=== PATIENT | male | born 1960 | race Caucasian/White ===

== ENCOUNTER → 2017-04-06 | Outpatient (CLI) | payer OTHER ==
[~2017-04-06] MED LIST: ASP325T PO; ENLP10T GT; PANT40TA PO; SCR1T1 PO
== END ==
LOC: RAD 14:58
PROVIDERS: ATTEND Nurse Practitioner Adult Health
DX: I73.9 Peripheral vascular disease, unspecified (principal)

== ENCOUNTER → 2017-05-03 | Outpatient (CLI) | payer OTHER | LOC: RAD 12:05 | PROVIDERS: ATTEND Nurse Practitioner Family | DX: I73.9 Peripheral vascular disease, unspecified (principal); I70.213 Atherosclerosis of native arteries of extremities with intermittent claudication, bilateral legs | CPT/HCPCS: 93923 ==

== ENCOUNTER 2017-11-27 15:54 | Emergency (ER) | payer MEDICARE, OTHER ==
[~2017-11-27] VITALS: Ht 175.3 cm; Wt 113.4 kg
[2017-11-27 16:43] LABS: BASOPHILS % (AUTO) 0 % (0-10); EOSINOPHILS # (AUTO) 0.1 10^3/uL (0.0-0.3); EOSINOPHILS % (AUTO) 1 % (0-10); HEMATOCRIT 42 % (40-54); HEMOGLOBIN 14.3 G/DL (13.3-17.7); LYMPHOCYTES # (AUTO) 2.2 X 10^3 (1.0-4.0); LYMPHOCYTES % (AUTO) 27 % (12-44); MEAN CORPUSCULAR HEMOGLOBIN 32 PG (25-34); MEAN CORPUSCULAR HGB CONC 34 G/DL (32-36); MEAN CORPUSCULAR VOLUME 93 FL (80-99); MEAN PLATELET VOLUME 10.5 FL (7.4-10.4); MONOCYTES # (AUTO) 0.8 X 10^3 (0.0-1.0); MONOCYTES % (AUTO) 9 % (0-12); NEUTROPHILS # (AUTO) 5.1 X 10^3 (1.8-7.8); NEUTROPHILS % (AUTO) 63 % (42-75); PLATELET COUNT 245 10^3/uL (130-400); RED BLOOD COUNT 4.53 10^6/uL (4.35-5.85); RED CELL DISTRIBUTION WIDTH 13.2 % (10.0-14.5); WHITE BLOOD COUNT 8.2 10^3/uL (4.3-11.0)
[2017-11-27 16:56] LABS: ALANINE AMINOTRANSFERASE 35 U/L (0-55); ALBUMIN 4.2 GM/DL (3.2-4.5); ALKALINE PHOSPHATASE 76 U/L (40-136); BILIRUBIN,TOTAL 0.5 MG/DL (0.1-1.0); BUN/CREATININE RATIO 19; CALCIUM 9.8 MG/DL (8.5-10.1); CARBON DIOXIDE 23 MMOL/L (21-32); CHLORIDE 106 MMOL/L (98-107); CREATININE SERUM 0.99 MG/DL (0.60-1.30); GFR ESTIMATED > 60; GLUCOSE 119 MG/DL (70-105); POTASSIUM 4.1 MMOL/L (3.6-5.0); SODIUM 138 MMOL/L (135-145); TOTAL PROTEIN 7.4 GM/DL (6.4-8.2)
--- NOTE | 2017-11-27 16:59 | ED Cardiac General ---
History of Present Illness General Chief Complaint: Chest Pain Stated Complaint: SINUS DRAINAGE,COUGH,CONGESTION Nursing Triage Note: PT STATES CHEST TIGHTNESS SINCE THIS A.M. COUGH FOR ABOUT A WEEK. Source: patient Exam Limitations: no limitations History of Present Illness Date Seen by Provider: Nov 27, 2017 Time Seen by Provider: 16:54 Initial Comments The patient reports that he has had a cough and sinus congestion for about one week. This has continued and his chest is begun to feel tight. He is not aware of fever or sweats. He then reveals that he has had surgery on his carotids for blockage and stents put in one leg for blockage. He has not known to be diabetic. He is hypertensive and reports he takes his medicines. Timing/Duration: 1 week Location: other (band like) Activities at Onset: none Prior CP/Workup: no prior chest pain Allergies and Home Medications Allergies Coded Allergies: niacin (Unverified Allergy, 03/16/13) Home Medications Aspirin 325 Mg Tab, 325 MG PO DAILY, (Reported) Enalapril Maleate 10 Mg Tab, 10 MG GT DAILY, (Reported) Pantoprazole Sodium 40 Mg Tablet.dr, 40 MG PO DAILY, (Reported) Sucralfate 1 Gm Tab, 1 GM PO ACHS PRN, (Reported) Patient Home Medication List Home Medication List Reviewed: Yes Review of Systems Constitutional: see HPI EENTM: No Symptoms Reported Respiratory: SOA With Exertion Cardiovascular: No Symptoms Reported, See HPI Gastrointestinal: No Symptoms Reported Genitourinary: No Symptoms Reported Musculoskeletal: no symptoms reported Skin: no symptoms reported Psychiatric/Neurological: No Symptoms Reported Endocrine: No Symptoms Reported Hematologic/Lymphatic: No Symptoms Reported Past Zxbfgyx-Drxeqh-Ibrdpo Hx Patient Social History Alcohol Use: Denies Use Recreational Drug Use: No Smoking Status: Never a Smoker Recent Foreign Travel: No Contact w/Someone Who Travel: No Recent Infectious Disease Expo: No Recent Hopitalizations: No Surgeries History of Surgeries: Yes (STENTS IN RT LEG, BI LAT HANDS, RT KNEE) Surgeries: Eye Surgery, Orthopedic Respiratory History of Respiratory Disorde: No Cardiovascular History of Cardiac Disorders: Yes Cardiac Disorders: Hypertension Neurological History of Neurological Disord: No Genitourinary History of Genitourinary Disor: No Gastrointestinal History of Gastrointestinal Di: No Musculoskeletal History of Musculoskeletal Dis: No Endocrine History of Endocrine Disorders: No Cancer History of Cancer: No Integumentary History of Skin or Integumenta: No Physical Exam Vital Signs Vital Signs - First Documented 11/27/17 16:26 Temp 97.0 Pulse 108 Resp 20 B/P (MAP) 143/91 (108) Pulse Ox 96 O2 Delivery Room Air Capillary Refill : Less Than 3 Seconds General Appearance: No Apparent Distress, WD/WN HEENT: Normal ENT Inspection Neck: Normal Inspection Respiratory: Chest Non Tender, Lungs Clear, Normal Breath Sounds, No Accessory Muscle Use, No Respiratory Distress Cardiovascular: Regular Rate, Rhythm, No Edema, No Gallop, No JVD, No Murmur, Normal Peripheral Pulses Gastrointestinal: Normal Bowel Sounds, No Organomegaly, No Pulsatile Mass, Non Tender, Other (obese) Extremity: Normal Capillary Refill, Normal Inspection, Normal Range of Motion, Non Tender, No Calf Tenderness, No Pedal Edema Neurologic/Psychiatric: Alert, Oriented x3, No Motor/Sensory Deficits, Normal Mood/Affect Skin: Normal Color, Warm/Dry Lymphatic: No Adenopathy Progress/Results/Core Measures Results/Orders Lab Results Laboratory Tests Test 11/27/17 16:20 Range/Units White Blood Count 8.2 4.3-11.0 10^3/uL Red Blood Count 4.53 4.35-5.85 10^6/uL Hemoglobin 14.3 13.3-17.7 G/DL Hematocrit 42 40-54 % Mean Corpuscular Volume 93 80-99 FL Mean Corpuscular Hemoglobin 32 25-34 PG Mean Corpuscular Hemoglobin Concent 34 32-36 G/DL Red Cell Distribution Width 13.2 10.0-14.5 % Platelet Count 245 130-400 10^3/uL Mean Platelet Volume 10.5 H 7.4-10.4 FL Neutrophils (%) (Auto) 63 42-75 % Lymphocytes (%) (Auto) 27 12-44 % Monocytes (%) (Auto) 9 0-12 % Eosinophils (%) (Auto) 1 0-10 % Basophils (%) (Auto) 0 0-10 % Neutrophils # (Auto) 5.1 1.8-7.8 X 10^3 Lymphocytes # (Auto) 2.2 1.0-4.0 X 10^3 Monocytes # (Auto) 0.8 0.0-1.0 X 10^3 Eosinophils # (Auto) 0.1 0.0-0.3 10^3/uL Basophils # (Auto) 0.0 0.0-0.1 10^3/uL Sodium Level 138 135-145 MMOL/L Potassium Level 4.1 3.6-5.0 MMOL/L Chloride Level 106 98-107 MMOL/L Carbon Dioxide Level 23 21-32 MMOL/L Anion Gap 9 5-14 MMOL/L Blood Urea Nitrogen 19 H 7-18 MG/DL Creatinine 0.99 0.60-1.30 MG/DL Estimat Glomerular Filtration Rate > 60 BUN/Creatinine Ratio 19 Glucose Level 119 H 70-105 MG/DL Calcium Level 9.8 8.5-10.1 MG/DL Total Bilirubin 0.5 0.1-1.0 MG/DL Aspartate Amino Transf (AST/SGOT) 26 5-34 U/L Alanine Aminotransferase (ALT/SGPT) 35 0-55 U/L Alkaline Phosphatase 76 40-136 U/L Troponin I < 0.30 <0.30 NG/ML Total Protein 7.4 6.4-8.2 GM/DL Albumin 4.2 3.2-4.5 GM/DL My Orders Orders - CARLOS TINOCO MD Cbc With Automated Diff (11/27/17 16:28) Comprehensive Metabolic Panel (11/27/17 16:28) Ekg Tracing (11/27/17 16:28) Chest 1 View, Ap/Pa Only (11/27/17 16:28) Troponin I (11/27/17 16:28) Vital Signs/I&O Vital Sign - Last 12Hours 11/27/17 11/27/17 16:26 16:53 Temp 97.0 Pulse 108 Resp 20 B/P (MAP) 143/91 (108) Pulse Ox 96 O2 Delivery Room Air Room Air Blood Pressure Mean: 108 Departure Communication (Admissions) Progress Notes EKG and laboratory are normal. [address] landaverde and she would wish that he be discharged for follow-up at [facility]. Impression Impression: Primary Impression: URI Disposition: 01 HOME, SELF-CARE Condition: Stable/Unchanged Departure-Patient Inst. Decision time for Depature: 18:02 Referrals: SINDY LANDAVERDE DO (PCP) Primary Care Physician Add. Discharge Instructions: All discharge instructions reviewed with patient and/or family. Voiced understanding. Plenty of liquids Claritin or other psgm-tlh-qgbfdwz antihistamines for sinus congestion. If chest discomfort becomes more acute and especially if you develop sweats return to the emergency room. Make appointment to see Dr. nathanael vega this week. CARLOS TINOCO MD Nov 27, 2017 16:59
--- NOTE | 2017-11-27 17:08 | Diagnostic Imaging Report ---
EXAM: CHEST 1 VIEW, AP/PA ONLY INDICATION: Chest tightness. Cough. COMPARISON: None. FINDINGS: Normal heart size and pulmonary vascularity. Calcified granulomas in the right lung. No focal consolidation, pleural effusion or pneumothorax. No acute osseous findings. Postoperative changes in the cervical spine. IMPRESSION: No acute cardiopulmonary findings. Dictated by: Dictated on workstation # [id number]
[2017-11-27 19:36] VITALS: BP 112/73
--- OUTSIDE RECORDS SUMMARY | 2017-11-28 09:50 | XMS REPORT ---
Author Author JUVE GASTELUM Organization [facility] Address [address] [place] [address] Care Team Providers Care Coordinator Of Library Services Name Role Phone TAWNYA GASTELUMNETTE Unavailable PROBLEMS Type Condition ICD9-CM Code [id number] Code Onset Dates Condition Status SNOMED Code Problem Rheumatoid arthritis, involving unspecified site, unspecified rheumatoid factor presence M06.9 Active 92445891 Problem PVD (peripheral vascular disease) I73.9 Active 053759456 Problem Essential hypertension I10 Active 19311491 Problem Hyperlipidemia, unspecified hyperlipidemia type E78.5 Active 71814474 Problem Right leg claudication I73.9 Active 431070640 Problem Dupuytren's contracture of hand M72.0 Active 000685386 Problem Primary osteoarthritis, unspecified site M19.91 Active 928963368 Problem Moderate single current episode of major depressive disorder F32.1 Active 24154838 Problem Pure hypercholesterolemia E78.00 Active 773255617 ALLERGIES Substance Reaction Event Type Date Status Niacin Unknown Drug Allergy Nov, Active SOCIAL HISTORY Never Assessed PLAN OF CARE VITAL SIGNS MEDICATIONS Medication Instructions Dosage Frequency Start Date End Date Duration Status Plavix 75 MG Orally Once a day 1 tablet 24h Active Lisinopril-Hydrochlorothiazide 20-12.5 MG Orally Once a day 1 tablet 24h Active Cyclobenzaprine HCl 10 MG Orally Three times a day 1 tablet as needed 8h Active Lipitor 20mg Orally Once a day 1 tablet 24h Active RESULTS No Results PROCEDURES No Known procedures IMMUNIZATIONS No Known Immunizations MEDICAL (GENERAL) HISTORY Type Description Date Medical History dupuytren's contracture-hand bilateral Medical History hypertension Medical History hyperlipidemia Medical History Arthritis Medical History peripheral vascular disease Medical History rheumatoid arthritis Surgical History cervical fusion C3-C7 -[facility] 05/2015 Surgical History dupuytren's contracture-bilateral hands Surgical History Artery bypass in right leg Surgical History Occipital bone surgery right side Hospitalization History Surgery(s) only
--- OUTSIDE RECORDS SUMMARY | 2017-11-28 09:50 | XMS REPORT ---
Author Author JUVE GASTELUM Organization [facility] Address [address] [place] [address] Care Team Providers Care Vrt Mechanic Name Role Phone GASTELUM, JUVE Unavailable PROBLEMS Type Condition ICD9-CM Code OEL43-LO Code Onset Dates Condition Status SNOMED Code Problem Rheumatoid arthritis, involving unspecified site, unspecified rheumatoid factor presence M06.9 Active 92390156 Problem PVD (peripheral vascular disease) I73.9 Active 755523855 Problem Essential hypertension I10 Active 11115228 Problem Hyperlipidemia, unspecified hyperlipidemia type E78.5 Active 24697819 Problem Right leg claudication I73.9 Active 160136172 Problem Dupuytren's contracture of hand M72.0 Active 355557641 Problem Primary osteoarthritis, unspecified site M19.91 Active 315665582 Problem Moderate single current episode of major depressive disorder F32.1 Active 08863692 Problem Pure hypercholesterolemia E78.00 Active 854729531 ALLERGIES Substance Reaction Event Type Date Status Niacin Unknown Drug Allergy Nov, Active SOCIAL HISTORY Never Assessed PLAN OF CARE Activity Details Follow Up 3 Months Reason:depresion, pain and schedule for ameritox VITAL SIGNS Height 69 in 2016-12-10 Weight 258.7 lbs 2016-12-10 Temperature 97.6 degrees Fahrenheit 2016-12-10 Heart Rate 88 bpm 2016-12-10 Respiratory Rate 18 2016-12-10 BMI 38.20 kg/m2 2016-12-10 Blood pressure systolic 152 mmHg 2016-12-10 Blood pressure diastolic 78 mmHg 2016-12-10 MEDICATIONS Medication Instructions Dosage Frequency Start Date End Date Duration Status Lipitor 20 mg Orally Once a day 1 tablet 24h Active Cyclobenzaprine HCl 10 MG Orally Three times a day 1 tablet as needed 8h Active Tramadol HCl 50 mg Orally 3 times a day 1 tablet as needed 8h Active Plavix 75 MG Orally Once a day 1 tablet 24h Active Lisinopril-Hydrochlorothiazide 20-12.5 MG Orally Once a day 1 tablet 24h Active Cane - Active RESULTS Name Result Date Reference Range URIC ACID, SERUM 2016-12-10 Uric Acid, Serum 6.6 3.7-8.6 TSH 2016-12-10 TSH 1.430 0.450-4.500 CBC 2016-12-10 WBC 7.0 3.4-10.8 RBC 4.60 4.14-5.80 Hemoglobin 14.3 12.6-17.7 Hematocrit 42.6 37.5-51.0 MCV 93 79-97 MCH 31.1 26.6-33.0 MCHC 33.6 31.5-35.7 RDW 13.9 12.3-15.4 Platelets 240 150-379 Neutrophils 56 Lymphs 33 Monocytes 7 Eos 3 Basos 0 Neutrophils (Absolute) 3.9 1.4-7.0 Lymphs (Absolute) 2.4 0.7-3.1 Monocytes(Absolute) 0.5 0.1-0.9 Eos (Absolute) 0.2 0.0-0.4 Baso (Absolute) 0.0 0.0-0.2 Immature Granulocytes 1 Immature Grans (Abs) 0.1 0.0-0.1 Hematology Comments: Note: ESR/SED RATE 2016-12-10 [facility]30 RA (RHEUMATOID) FACTOR 2016-12-10 RA Latex Turbid. <10.0 0.0-13.9 AGAPITO 2016-12-10 Antinuclear Antibodies, IFA Negative LIPID PANEL 2016-12-10 Cholesterol, Total 225 100-199 Triglycerides 378 0-149 HDL Cholesterol 36 >39 VLDL Cholesterol Brett 76 5-40 LDL Cholesterol Calc 113 0-99 CMP 2016-12-10 Glucose, Serum 94 65-99 BUN 17 6-24 Creatinine, Serum 0.96 0.76-1.27 eGFR If NonAfricn Am 87 >59 eGFR If Africn Am 100 >59 BUN/Creatinine Ratio 18 9-20 Sodium, Serum 140 134-144 Potassium, Serum 4.7 3.5-5.2 Chloride, Serum 102 96-106 Carbon Dioxide, Total 21 18-29 Calcium, Serum 9.1 8.7-10.2 Protein, Total, Serum 6.9 6.0-8.5 Albumin, Serum 4.2 3.5-5.5 Globulin, Total 2.7 1.5-4.5 A/G Ratio 1.6 1.2-2.2 Bilirubin, Total 0.4 0.0-1.2 Alkaline Phosphatase, S 84 39-117 AST (SGOT) 26 0-40 ALT (SGPT) 36 0-44 PROCEDURES Procedure Date Ordered Result Body Site COMPLETE CBC W/AUTO DIFF WBC December 10, 2016 RBC SED RATE, AUTOMATED December 10, 2016 ASSAY OF BLOOD/URIC ACID December 10, 2016 VENIPUNCT, ROUTINE* December 10, 2016 ASSAY THYROID STIM HORMONE December 10, 2016 LIPID PANEL December 10, 2016 ANTINUCLEAR ANTIBODIES December 10, 2016 RHEUMATOID FACTOR, QUANT December 10, 2016 IMMUNIZATIONS No Known Immunizations MEDICAL (GENERAL) HISTORY Type Description Date Medical History dupuytren's contracture-hand bilateral Medical History hypertension Medical History hyperlipidemia Medical History Arthritis Medical History peripheral vascular disease Medical History rheumatoid arthritis Surgical History cervical fusion C3-C7 -[facility] 05/2015 Surgical History dupuytren's contracture-bilateral hands Surgical History Artery bypass in right leg Surgical History Occipital bone surgery right side Hospitalization History Surgery(s) only
--- OUTSIDE RECORDS SUMMARY | 2017-11-28 09:50 | XMS REPORT | Continuity of Care Document ---
Author Author [facility] Organization [facility] Address Unknown Phone Unavailable Allergies Active Description Code Type Severity Reaction Onset Reported/Identified Relationship to Patient Clinical Status Yes niacin [id number] Drug Allergy Unknown N/A 03/16/2013 Medications There is no data. Problems Date Dx Coded Attending Type Code Diagnosis Diagnosed By 03/16/2013 NOREEN COLLADO MD Ot 455.0 INT HEMORRHOID W/O COMPL 03/16/2013 NOREEN COLLADO MD Ot 455.3 EXT HEMORRHOID W/O COMPL 03/16/2013 NOREEN COLLADO MD Ot 530.11 REFLUX ESOPHAGITIS 03/16/2013 NOREEN COLLADO MD Ot 535.40 OTH SPECIFIED GASTRITIS,W/O MENTION OF H 03/16/2013 NOREEN COLLADO MD Ot V76.51 SCREEN MAL NEOP-COLON 03/29/2017 NOREEN COLLADO MD Ot V72.84 EXAM PRE-OPERATIVE NOS 04/07/2017 NOREEN COLLADO MD Ot V72.84 EXAM PRE-OPERATIVE NOS 04/13/2017 NOREEN COLLADO MD Ot V72.84 EXAM PRE-OPERATIVE NOS 04/13/2017 JUVE GASTELUMP Ot I73.9 PERIPHERAL VASCULAR DISEASE, UNSPECIFIED 05/04/2017 DERIK BARRY Ot I70.213 ATHSCL [place] ARTERIES OF EXTRM W INTRMT 05/04/2017 DERIK BARRY Ot I73.9 PERIPHERAL VASCULAR DISEASE, UNSPECIFIED Procedures There is no data. Results There is no data. Encounters ACCT No. Visit Date/Time Discharge Status Pt. Type Provider Facility Loc./Unit Complaint [id number] 07/28/2017 13:04:00 07/28/2017 23:59:59 CLS Outpatient SINDY LANDAVERDE DO [facility] RAD LOW BACK PAIN [id number] 05/03/2017 12:05:00 05/03/2017 23:59:59 CLS Outpatient DERIK BARRY [employer] ASSOCIATE [facility] RAD I73.9 [id number] 04/06/2017 14:58:00 04/06/2017 23:59:59 CLS Outpatient JUVE GASTELUM [facility] RAD PVD I73.9 [id number] 03/16/2013 09:40:00 03/16/2013 12:50:00 DIS Outpatient NOREEN COLLADO MD [facility] GERD; SCREENING [id number] 03/15/2013 08:06:00 03/15/2013 23:59:59 CLS Outpatient NOREEN COLLADO MD [facility] PREOP GERD; SCREENING
== END 2017-11-27 19:36 | disposition home or self-care (01) ==
LOC: EDUNIT# 15:54 → ER 15:56
DX: J06.9 Acute upper respiratory infection, unspecified (principal); I10 Essential (primary) hypertension; Z95.820 Peripheral vascular angioplasty status with implants and grafts; Z98.890 Other specified postprocedural states; Z88.3 Allergy status to other anti-infective agents
CPT/HCPCS: 36415; 71045; 80053; 84484; 85025; 93005

== ENCOUNTER 2018-03-03 20:18 | Emergency (ER) | payer MEDICARE ==
[~2018-03-03] VITALS: Ht 175.3 cm; Wt 113.9 kg
--- OUTSIDE RECORDS SUMMARY | 2018-03-03 20:23 | XMS REPORT ---
Author Author JUVE Diaz Organization [facility] Address [address] [place] [address] Care Team Providers Care Wooden Boat Builder Name Role Phone JUVE Diaz Unavailable PROBLEMS Type Condition ICD9-CM Code HUA71-UN Code Onset Dates Condition Status SNOMED Code Problem Primary osteoarthritis, 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 Active 71887643 Problem Lumbago with sciatica, left side M54.42 Active 875728793 Problem Anxiety F41.9 Active 59703031 Problem Hypotestosteronism E34.9 Active 7693482868956 Problem Erectile dysfunction, unspecified erectile dysfunction type N52.9 Active 315885035 Problem Chronic prescription opiate use Z79.891 Active 144607292 Problem Lumbago with sciatica, right side M54.41 Active 783960282530381 Problem Tear of left rotator cuff, unspecified tear extent M75.102 Active 6321608 Problem Left shoulder pain, unspecified chronicity M25.512 Active 51992217 Problem Pure hypercholesterolemia E78.00 Active 354115377 Problem Primary osteoarthritis, unspecified site M19.91 Active 155666510 Problem Dupuytren's contracture of hand M72.0 Active 778257671 Problem PVD (peripheral vascular disease) I73.9 Active 207158527 Problem Moderate single current episode of major depressive disorder F32.1 Active 10333803 Problem Rheumatoid arthritis, involving unspecified site, unspecified rheumatoid factor presence M06.9 Active 11237527 Problem Right leg claudication I73.9 Active 412553031 Problem Essential hypertension I10 Active 69637812 Problem Hyperlipidemia, unspecified hyperlipidemia type E78.5 Active 50771138 ALLERGIES No Information ENCOUNTERS Encounter Location Date Diagnosis [facility] [address] [id number] [place] [id number] Dec, [address] [id number] [place] [id number] Dec, Erectile dysfunction, unspecified erectile dysfunction type N52.9 [facility] [address] [id number] [id number] Dec, [facility] [address] [address] Dec, Pre-operative cardiovascular examination Z01.810 ; PVD (peripheral vascular disease) I73.9 ; Anxiety F41.9 ; Rheumatoid arthritis, involving unspecified site, unspecified rheumatoid factor presence M06.9 ; Essential hypertension I10 ; Hyperlipidemia, unspecified hyperlipidemia type E78.5 and Hypotestosteronism E34.[address] [facility] [address] [id number][place] [id number] Dec, [facility] [address] [id number][place] [id number] Dec, Erectile dysfunction, unspecified erectile dysfunction type N52.9 and Hypotestosteronism E34.9 [facility] [address] [id number][place] [address] Dec, Hypotestosteronism E34.9 [facility] [address] [id number][place] [id number] Nov, [facility] [address] [address] Nov, Hypotestosteronism E34.9 [facility] [place] [id number] [id number] Nov, Pure hypercholesterolemia E78.00 and Primary osteoarthritis, unspecified site M19.[address] [facility] [address] [id number][place] [id number] Nov, [facility] [address] [place] [address] Nov, Tear of left glenoid labrum, subsequent encounter S43.432D [facility] [address] [id number], [place] [id number] Nov, Hypotestosteronism E34.[address] [facility] [address] [id number] [place] [id number] 15 Nov, [address] [facility] [address] [id number] [place] [id number] 14 Nov, [address] [facility] [address] [id number] [place] [id number] Nov, Erectile dysfunction, unspecified erectile dysfunction type N52.[address] [facility] [address] [id number] [place] [address] Nov, Erectile dysfunction, unspecified erectile dysfunction type N52.9 [facility] [address] [id number][place] [id number] Nov, Viral upper respiratory tract infection J06.9 and Erectile dysfunction, unspecified erectile dysfunction type N52.9 [facility] [address] [id number][place] [id number] Oct, [facility] [address] [id number], [place] [id number] Oct, [facility] [address] [id number][place] [id number] Oct, Fall on same level due to nature of surface, initial encounter W18.39XA and Erectile dysfunction, unspecified erectile dysfunction type N52.9 [facility] [address]65100[place] [address] Sep, [facility] [id number] [place] [address] 09120- 1693 Sep, Tear of left rotator cuff, unspecified tear extent M75.102 and Primary osteoarthritis, 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 [facility] [id number] [place] [address] 06158- 8790 Aug, Primary osteoarthritis, unspecified site M19.91 [facility] [address] [place] [address] 95340- 8304 Jul, [facility] [id number] [place] [address] 23965- 6591 Jul, Primary osteoarthritis, unspecified site M19.91 [place] [id number] [place] [address] 35361- 8958 Jul, Lumbago with sciatica, right side M54.41 [place] [id number] [place] [address] 24385- 2032 Jul, Primary osteoarthritis, 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 and Injury of left rotator cuff, subsequent encounter S46.002D [place] [address] [address]07- [address] Jul, [place] [address] [address]75 Jul, [place] [id number] [place] [address] 70253- 4465 Jul, [place] [address] [place] [address] 93750- 3208 Jul, Lumbago with sciatica, left side M54.42 ; Lumbago with sciatica, right side M54.41 ; Left shoulder pain, unspecified chronicity M25.512 and Essential hypertension I10 [place] [address] [place] [address] 37650- 9047 Jun, Lumbago with sciatica, left side M54.42 ; Lumbago with sciatica, right side M54.41 ; Left shoulder pain, unspecified chronicity M25.512 ; Essential hypertension I10 ; Heart murmur previously undiagnosed R01.1 ; Overweight E66.3 ; Anxiety F41.9 and Chronic prescription opiate use Z79.891 [place] [address] [place] [address] 12729- 3215 Jun, Primary osteoarthritis, unspecified site M19.91 [place] [address] [place] [address] 41070- 5092 Jun, [place] [address] [place] [address] 83800- 7474 May, Primary osteoarthritis, unspecified site M19.91 [place] [address] [place] [address] 08577- 4070 May, Injury of left rotator cuff, subsequent encounter S46.002D [place] [address] [place] [address] 88833- 0384 May, [place] [id number] [place] [address] 05136- 0458 Apr, [place] [address] [place] [address] 20979- 2630 Apr, PVD (peripheral vascular disease) I73.9 ; Right leg claudication I73.9 ; Hyperlipidemia, unspecified hyperlipidemia type E78.5 ; Occlusion of femoropopliteal bypass graft, 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 and Essential hypertension I10 [place] [address] [place] [address] 01328- 9556 Apr, Left shoulder pain, unspecified chronicity M25.512 [place] [address] [place] [address] 33395- 5160 Mar, Left shoulder pain, unspecified chronicity M25.512 [place] [id number] [place] [address] 21647- 5211 Mar, [place] [id number] [place] [address] 91288- 5540 Mar, [place] [id number] [place] [address] 82534- 4285 Mar, Dupuytren's contracture of hand M72.0 ; Essential hypertension I10 ; Pure hypercholesterolemia E78.00 ; Primary osteoarthritis, unspecified site M19.91 ; PVD (peripheral vascular disease) I73.9 and Moderate single current episode of major depressive disorder F32.1 [facility] [id number] [place] [id number] 29 Mele, 2017 Dental examination Z01.20 and Dental caries K02.9 [place] [address] [address] Feb, Primary osteoarthritis, unspecified site M19.91 [place] [address]100[place] [address] Feb, [place] [address] [address] Feb, [place] [address] [address] Nov, [place] [address] [place] [address] 30394- 9888 Nov, Dupuytren's contracture of hand M72.0 ; Pure hypercholesterolemia E78.00 ; Essential hypertension I10 ; PVD (peripheral vascular disease) I73.9 ; Primary osteoarthritis, unspecified site M19.91 and Rheumatoid arthritis, involving unspecified site, unspecified rheumatoid factor presence M06.9 [place] [address] [address] Nov, IMMUNIZATIONS No Known Immunizations SOCIAL HISTORY Never Assessed REASON FOR VISIT Controlled Med Refill PLAN OF CARE VITAL SIGNS MEDICATIONS Unknown Medications RESULTS No Results PROCEDURES No Known procedures INSTRUCTIONS MEDICATIONS ADMINISTERED No Known Medications MEDICAL (GENERAL) HISTORY Type Description Date Medical History dupuytren's contracture-hand bilateral Medical History hypertension Medical History hyperlipidemia Medical History Arthritis Medical History peripheral vascular disease Medical History rheumatoid arthritis Surgical History cervical fusion C3-C7 [facility] 05/2015 Surgical History dupuytren's contracture-bilateral hands Surgical History Artery bypass in right leg Surgical History Occipital bone surgery right side Surgical History surgery near right eye Hospitalization History Surgery(s) only
--- OUTSIDE RECORDS SUMMARY | 2018-03-03 20:24 | XMS REPORT ---
Author Author DERIK BARRY [facility] Address [address] [place] [address] Care Team Providers Care Training And Development Assistant Name Role Phone DERIK BARRY Unavailable PROBLEMS Type Condition ICD9-CM Code KPF96-FP Code Onset Dates Condition Status SNOMED Code Problem Primary osteoarthritis, 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 Active 76145822 Problem Lumbago with sciatica, left side M54.42 Active 359086275 Problem Anxiety F41.9 Active 39377886 Problem Hypotestosteronism E34.9 Active 3043814529900 Problem Erectile dysfunction, unspecified erectile dysfunction type N52.9 Active 432607863 Problem Chronic prescription opiate use Z79.891 Active 773551137 Problem Lumbago with sciatica, right side M54.41 Active 067915353308798 Problem Tear of left rotator cuff, unspecified tear extent M75.102 Active 5940715 Problem Left shoulder pain, unspecified chronicity M25.512 Active 65730791 Problem Pure hypercholesterolemia E78.00 Active 566009461 Problem Primary osteoarthritis, unspecified site M19.91 Active 962424197 Problem Dupuytren's contracture of hand M72.0 Active 120202140 Problem PVD (peripheral vascular disease) I73.9 Active 231758864 Problem Moderate single current episode of major depressive disorder F32.1 Active 05267727 Problem Rheumatoid arthritis, involving unspecified site, unspecified rheumatoid factor presence M06.9 Active 44676102 Problem Right leg claudication I73.9 Active 109106594 Problem Essential hypertension I10 Active 24888929 Problem Hyperlipidemia, unspecified hyperlipidemia type E78.5 Active 71344648 ALLERGIES Substance Reaction Event Type Date Status Niacin Unknown Drug Allergy Apr, Active ENCOUNTERS Encounter Location Date Diagnosis [place] [id number] [facility] [address] [id number] [place] [id number] Dec, Erectile dysfunction, unspecified erectile dysfunction type N52.9 [facility] [id number][place] [id number] Dec, [facility] [place] [address] [id number] [address] Dec, Pre-operative cardiovascular examination Z01.810 ; PVD (peripheral vascular disease) I73.9 ; Anxiety F41.9 ; Rheumatoid arthritis, involving unspecified site, unspecified rheumatoid factor presence M06.9 ; Essential hypertension I10 ; Hyperlipidemia, unspecified hyperlipidemia type E78.5 and Hypotestosteronism E34.[address] [facility] [address] [id number] [place] [address] Dec, [facility] [address] [id number] [place] [address] Dec, Erectile dysfunction, unspecified erectile dysfunction type N52.9 and Hypotestosteronism E34.9 [facility] [address] [id number] [place] [id number] Dec, Hypotestosteronism E34.9 [facility] [place] [address] [id number][place] [address] Nov, [facility] [address] [place] [address] 75184- 3877 Nov, Hypotestosteronism E34.9 [facility] [place] [id number] [id number] Nov, Pure hypercholesterolemia E78.00 and Primary osteoarthritis, unspecified site M19.91 [facility] [address] [id number] [place] [address] Nov, [facility] [address] [id number], [place] [address] Nov, Tear of left glenoid labrum, subsequent encounter S43.432D [facility] [address] [id number] [place] [address] Nov, Hypotestosteronism E34.9 [facility] [address] [id number] [place] [id number] Nov, [facility] [address] [id number] [place] [id number] Nov, [facility] [address] [id number] [place] [id number] Nov, Erectile dysfunction, unspecified erectile dysfunction type N52.9 [facility] [address] [id number] [place] [id number] Nov, Erectile dysfunction, unspecified erectile dysfunction type N52.9 [facility] [address] [id number] [place] [id number] Nov, Viral upper respiratory tract infection J06.9 and Erectile dysfunction, unspecified erectile dysfunction type N52.9 [facility] [address] [id number] [place] [id number] Oct, [facility] [address] [id number] [place] [id number] Oct, [facility] [address] [id number] [place] [id number] Oct, Fall on same level due to nature of surface, initial encounter W18.39XA and Erectile dysfunction, unspecified erectile dysfunction type N52.9 [facility] [address] [place] [address] 65141- 2961 Sep, [facility] [id number] [place] [address] 30568- 6635 Sep, Tear of left rotator cuff, unspecified tear extent M75.102 and Primary osteoarthritis, 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 [facility] [place] [id number] [place] [address] 95084- 4690 Aug, Primary osteoarthritis, unspecified site M19.91 [facility] [place] [id number] [place] [address] 61528- 5788 Jul, [facility] [place] [id number] [place] [address] 71634- 9715 Jul, Primary osteoarthritis, unspecified site M19.91 [place] [address], [place] [address]- 6[address] Jul, Lumbago with sciatica, right side M54.41 [place] [id number] [place] [address] 40034- 3432 Jul, Primary osteoarthritis, 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 and Injury of left rotator cuff, subsequent encounter S46.002D [place] [address] [place] [address] 29608- 9984 Jul, [place] [address] [place] [address] 05553- 8785 Jul, [place] [address] [place] [address] 59903- 5265 Jul, [place] [address] [place] [address] 48268- 2541 Jul, Lumbago with sciatica, left side M54.42 ; Lumbago with sciatica, right side M54.41 ; Left shoulder pain, unspecified chronicity M25.512 and Essential hypertension I10 [place] [address] [place] [address] 08614- 5085 Jun, Lumbago with sciatica, left side M54.42 ; Lumbago with sciatica, right side M54.41 ; Left shoulder pain, unspecified chronicity M25.512 ; Essential hypertension I10 ; Heart murmur previously undiagnosed R01.1 ; Overweight E66.3 ; Anxiety F41.9 and Chronic prescription opiate use Z79.891 [place] [address] [place] [address] 34611- 0301 Jun, Primary osteoarthritis, unspecified site M19.91 [place] [address] [place] [address] 64138- 2258 Jun, [facility] [place] [id number] [place] [address] 40509- 3863 May, Primary osteoarthritis, unspecified site M19.91 [place] [address] [place] [address] 81043- 4315 May, Injury of left rotator cuff, subsequent encounter S46.002D [place] [address] [place] [address] 29885- 2522 May, [place] [address] [place] [address] 47534- 1629 Apr, [place] [address] [place] [address] 62517- 0345 Apr, PVD (peripheral vascular disease) I73.9 ; Right leg claudication I73.9 ; Hyperlipidemia, unspecified hyperlipidemia type E78.5 ; Occlusion of femoropopliteal bypass graft, 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 and Essential hypertension I10 [place] [address] [place] [address] 37891- 2102 Apr, Left shoulder pain, unspecified chronicity M25.512 [place] [address] [place] [address] 98552- 6427 Mar, Left shoulder pain, unspecified chronicity M25.512 [place] [address] [place] [address] 65665- 8395 Mar, [place] [address] [place] [address] 88628- 5486 Mar, [place] [address] [place] [address] 97227- 8594 Mar, Dupuytren's contracture of hand M72.0 ; Essential hypertension I10 ; Pure hypercholesterolemia E78.00 ; Primary osteoarthritis, unspecified site M19.91 ; PVD (peripheral vascular disease) I73.9 and Moderate single current episode of major depressive disorder F32.1 [facility] [address] [id number] Feb, Dental examination Z01.20 and Dental caries K02.9 [place] [address] [place] [address]- 8507 Feb, Primary osteoarthritis, unspecified site M19.91 [place] [address], [place] [address]- 6143 Feb, [place] [address], [place] [address]- 1856 Feb, [place] [id number] [place] [address] 22448- 1482 Nov, [place] [address] [place] [address] 85595- 3057 Nov, Dupuytren's contracture of hand M72.0 ; Pure hypercholesterolemia E78.00 ; Essential hypertension I10 ; PVD (peripheral vascular disease) I73.9 ; Primary osteoarthritis, unspecified site M19.91 and Rheumatoid arthritis, involving unspecified site, unspecified rheumatoid factor presence M06.9 [place] [address], [place] [address]- 7252 Nov, IMMUNIZATIONS No Known Immunizations SOCIAL HISTORY Never Assessed REASON FOR VISIT PVD/HTN PLAN OF CARE Activity Details Follow Up f/u at Dr Gasca office Reason: VITAL SIGNS Height 69 in 2017-04-27 Weight 243 lbs 2017-04-27 Heart Rate 90 bpm 2017-04-27 Respiratory Rate 18 2017-04-27 Oximetry 98 % 2017-04-27 BMI 35.88 kg/m2 2017-04-27 Blood pressure systolic 148 mmHg 2017-04-27 Blood pressure diastolic 86 mmHg 2017-04-27 MEDICATIONS Medication Instructions Dosage Frequency Start Date End Date Duration Status Duloxetine HCl 60 mg [place] Once a day 1 capsule 24h 21 Feb, 2017 90 days Active Lipitor 20 mg Orally Once a day 1 tablet 24h Active Lopid 600 MG Or[place] Twice a day 1 tablet 12h Nov, 30 day(s) Active Cyclobenzaprine HCl 10 mg Or[place] Three times a day 1 tablet as needed 8h Active Plavix 75 MG Orally Once a day 1 tablet 24h Active Hydrocodone-Acetaminophen 5-325 MG Orally 3 times a day 1 tablet as needed 8h Apr, 15 days Active Nabumetone 500 mg Orally Twice a day 1 tablet 12h Apr, Apr, 30 day(s) Active Aspirin Adult Low Dose 81 MG Orally Once a day 1 tablet 24h Active Tramadol HCl 50 mg Orally 3 times a day 1 tablet 8h 28 Active Lisinopril-Hydrochlorothiazide 20-12.5 MG Orally Once a day 1 tablet 24h 90 days Active RESULTS Name Result Date Reference Range STEVIE 2017-05-03 PROCEDURES Procedure Date Ordered Result Body Site EKG, TRACING (IN-HOUSE) 2017-04-27 N/A MEASURE BLOOD OXYGEN LEVEL Apr 27, 2017 ELECTROCARDIOGRAM, TRACING Apr 27, 2017 INSTRUCTIONS MEDICATIONS ADMINISTERED No Known Medications MEDICAL [...]
--- OUTSIDE RECORDS SUMMARY | 2018-03-03 20:24 | XMS REPORT ---
Author Author SINDY LANDAVERDE [facility] Address [address] [place] [address] Care Team Providers Care Barrel Marker Name Role Phone SINDY LANDAVERDE Unavailable PROBLEMS Type Condition ICD9-CM Code HAF40-RO Code Onset Dates Condition Status SNOMED Code Problem Primary osteoarthritis, 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 Active 62871027 Problem Lumbago with sciatica, left side M54.42 Active 188336705 Problem Anxiety F41.9 Active 06920696 Problem Hypotestosteronism E34.9 Active 3839019261919 Problem Erectile dysfunction, unspecified erectile dysfunction type N52.9 Active 696808668 Problem Chronic prescription opiate use Z79.891 Active 433986777 Problem Lumbago with sciatica, right side M54.41 Active 427592114747843 Problem Tear of left rotator cuff, unspecified tear extent M75.102 Active 7314042 Problem Left shoulder pain, unspecified chronicity M25.512 Active 22523357 Problem Pure hypercholesterolemia E78.00 Active 350138788 Problem Primary osteoarthritis, unspecified site M19.91 Active 094662898 Problem Dupuytren's contracture of hand M72.0 Active 633918786 Problem PVD (peripheral vascular disease) I73.9 Active 129734127 Problem Moderate single current episode of major depressive disorder F32.1 Active 96506529 Problem Rheumatoid arthritis, involving unspecified site, unspecified rheumatoid factor presence M06.9 Active 87443234 Problem Right leg claudication I73.9 Active 683641734 Problem Essential hypertension I10 Active 49147103 Problem Hyperlipidemia, unspecified hyperlipidemia type E78.5 Active 65825931 ALLERGIES No Information ENCOUNTERS Encounter Location Date Diagnosis [facility] [address] [id number] [place] [id number] January, Hypotestosteronism E34.9 [facility] [address] [id number][place] [id number] Dec, [facility] [address] [id number] [address] Dec, Erectile dysfunction, unspecified erectile dysfunction type N52.9 [facility] [place] [address] [facility] [id number][place] [id number] Dec, [facility] [place] [address] [facility] [id number][place] [address] Dec, Pre-operative cardiovascular examination Z01.810 ; PVD (peripheral vascular disease) I73.9 ; Anxiety F41.9 ; Rheumatoid arthritis, involving unspecified site, unspecified rheumatoid factor presence M06.9 ; Essential hypertension I10 ; Hyperlipidemia, unspecified hyperlipidemia type E78.5 and Hypotestosteronism E34.9 [facility] [address] [facility] [address] [id number][place] [id number] Dec, [facility] [address] [id number], [place] [id number] Dec, Erectile dysfunction, unspecified erectile dysfunction type N52.9 and Hypotestosteronism E34.9 [facility] [address] [id number][place] [id number] Dec, Hypotestosteronism E34.9 [facility] [address] [id number][place] [id number] Nov, [facility] [address] [place] [id number] [address] Nov, Hypotestosteronism E34.9 [facility] [address] [id number][place] [id number] Nov, Pure hypercholesterolemia E78.00 and Primary osteoarthritis, unspecified site M19.91 [facility] [address] [id number], [place] [address] Nov, [facility] [address] [facility] [id number], [place] [address] Nov, Tear of left glenoid labrum, subsequent encounter S43.432D [facility] [address] [id number] [place] [id number] 15 Nov, 2017 Hypotestosteronism E34.9 [facility] [address] [id number] [place] [id number] Nov, [facility] [address] [id number] [place] [id number] Nov, [facility] [address] [id number] [place] [address] Nov, Erectile dysfunction, unspecified erectile dysfunction type N52.9 [facility] [address] [id number] [place] [id number] Nov, Erectile dysfunction, unspecified erectile dysfunction type N52.9 [facility] [address] [id number], [place] [address] Nov, Viral upper respiratory tract infection J06.9 and Erectile dysfunction, unspecified erectile dysfunction type N52.9 [facility] [address] [id number], [place] [id number] Oct, [facility] [address] [id number], [place] [id number] Oct, [facility] [address] [id number], [place] [id number] Oct, Fall on same level due to nature of surface, initial encounter W18.39XA and Erectile dysfunction, unspecified erectile dysfunction type N52.9 [facility] [address] [id number], [place] [address] Sep, [facility] [address]00565100[place], [place] [address] Sep, Tear of left rotator cuff, unspecified tear extent M75.102 and Primary osteoarthritis, 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 [facility] [address] [id number], [place] [address] Aug, Primary osteoarthritis, unspecified site M19.91 [facility] [address] [place] [address] 27147- 4817 Jul, [place] [address] [place] [id number] [place] [address]160- 2022 Jul, Primary osteoarthritis, unspecified site M19.91 [place] [address] [place] [address] 14741- 8632 Jul, Lumbago with sciatica, right side M54.41 [place] [address] [place] [id number] [place] [address] 71926- 3359 Jul, Primary osteoarthritis, 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 and Injury of left rotator cuff, subsequent encounter S46.002D [place] [address] [place] [id number] [place] [address] 62859- 2146 Jul, [place] [address] [place] [id number] [place] [address] 22964- 8978 Jul, [place] [address] [place] [id number] [place] [address] 97519- 6721 Jul, [place] [address] [place] [id number] [place] [address] 75847- 1330 Jul, Lumbago with sciatica, left side M54.42 ; Lumbago with sciatica, right side M54.41 ; Left shoulder pain, unspecified chronicity M25.512 and Essential hypertension I10 [place] [address] [place] [address] 71585- 4024 Jun, Lumbago with sciatica, left side M54.42 ; Lumbago with sciatica, right side M54.41 ; Left shoulder pain, unspecified chronicity M25.512 ; Essential hypertension I10 ; Heart murmur previously undiagnosed R01.1 ; Overweight E66.3 ; Anxiety F41.9 and Chronic prescription opiate use Z79.891 [place] [address] [place] [address] 07249- 7189 Jun, Primary osteoarthritis, unspecified site M19.91 [place] [address] [place] [id number] [place] [address] 11491- 9792 Jun, [place] [address] [place] [id number] [place] [address] 95210- 6120 May, Primary osteoarthritis, unspecified site M19.91 [place] [address] [place] [id number] [place] [address] 11939- 8617 May, Injury of left rotator cuff, subsequent encounter S46.002D [place] [address] [place] [id number] [place] [address] 84888- 3937 May, [place] [address] [place] [id number] [place] [address] 70579- 9929 Apr, [place] [address] [place] [id number] [place] [address] 12225- 0407 Apr, PVD (peripheral vascular disease) I73.9 ; Right leg claudication I73.9 ; Hyperlipidemia, unspecified hyperlipidemia type E78.5 ; Occlusion of femoropopliteal bypass graft, 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 and Essential hypertension I10 [place] [address] [place] [id number] [place] [address] 54107- 4071 Apr, Left shoulder pain, unspecified chronicity M25.512 [place] [address] [place] [id number] [place] [address] 04069- 6481 Mar, Left shoulder pain, unspecified chronicity M25.512 [place] [address] [place] [id number] [place] [address] 51537- 5942 Mar, [place] [address] [place] [id number] [place] [address] 38171- 6973 Mar, [place] [address] [place] [id number] [place] [address] 85855- 1082 Mar, Dupuytren's contracture of hand M72.0 ; Essential hypertension I10 ; Pure hypercholesterolemia E78.00 ; Primary osteoarthritis, unspecified site M19.91 ; PVD (peripheral vascular disease) I73.9 and Moderate single current episode of major depressive disorder F32.1 [facility] [address] [facility] [id number] [id number] 29 Feb, 2017 Dental examination Z01.20 and Dental caries K02.9 [facility] [address]65[address], [place] [address] Feb, Primary osteoarthritis, unspecified site M19.91 [place] [address]65100[place], [place] [address] Feb, [place] [address] [place] [address] 85755- 7472 Feb, [place] [address] [place] [address] 32186- 5597 Nov, [place] [address] [place] [address] 21915- 0368 Nov, Dupuytren's contracture of hand M72.0 ; Pure hypercholesterolemia E78.00 ; Essential hypertension I10 ; PVD (peripheral vascular disease) I73.9 ; Primary osteoarthritis, unspecified site M19.91 and Rheumatoid arthritis, involving unspecified site, unspecified rheumatoid factor presence M06.9 [place] [address] [place] [address] 95073- 2131 Nov, IMMUNIZATIONS No Known Immunizations SOCIAL HISTORY Never Assessed REASON FOR VISIT Xray (walk-in) MHill RT(R) PLAN OF CARE VITAL SIGNS MEDICATIONS Unknown Medications RESULTS Name Result Date Reference Range Xray : Spine, Lumbar 2-3 views (IN HOUSE) 2017-07-20 PROCEDURES Procedure Date Ordered Result Body Site X-RAY EXAM OF LOWER SPINE Jul 20, 2017 INSTRUCTIONS MEDICATIONS ADMINISTERED No Known Medications MEDICAL (GENERAL) HISTORY Type Description Date Medical History dupuytren's contracture-hand bilateral Medical History hypertension Medical History hyperlipidemia Medical History Arthritis Medical History peripheral vascular disease Medical History rheumatoid arthritis Surgical History cervical fusion C3-C7 -[facility] 05/2015 Surgical History dupuytren's contracture-bilateral hands Surgical History Artery bypass in right leg Surgical History Occipital bone surgery right side Surgical History surgery near right eye Hospitalization History Surgery(s) only
--- OUTSIDE RECORDS SUMMARY | 2018-03-03 20:24 | XMS REPORT ---
Author Author JUVE Diaz Organization [facility] Address [address] [place] [address] Care Team Providers Care Decontaminator Name Role Phone JUVE Diaz Unavailable PROBLEMS Type Condition ICD9-CM Code ISG01-OD Code Onset Dates Condition Status SNOMED Code Problem Primary osteoarthritis, 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 Active 66567478 Problem Lumbago with sciatica, left side M54.42 Active 379946364 Problem Anxiety F41.9 Active 89424548 Problem Hypotestosteronism E34.9 Active 4460801865341 Problem Erectile dysfunction, unspecified erectile dysfunction type N52.9 Active 051208560 Problem Chronic prescription opiate use Z79.891 Active 651699950 Problem Lumbago with sciatica, right side M54.41 Active 962149446345171 Problem Tear of left rotator cuff, unspecified tear extent M75.102 Active 1106484 Problem Left shoulder pain, unspecified chronicity M25.512 Active 91484348 Problem Pure hypercholesterolemia E78.00 Active 169403933 Problem Primary osteoarthritis, unspecified site M19.91 Active 130877461 Problem Dupuytren's contracture of hand M72.0 Active 900138461 Problem PVD (peripheral vascular disease) I73.9 Active 362054653 Problem Moderate single current episode of major depressive disorder F32.1 Active 40330491 Problem Rheumatoid arthritis, involving unspecified site, unspecified rheumatoid factor presence M06.9 Active 42310920 Problem Right leg claudication I73.9 Active 581384182 Problem Essential hypertension I10 Active 92537892 Problem Hyperlipidemia, unspecified hyperlipidemia type E78.5 Active 96074546 ALLERGIES No Information ENCOUNTERS Encounter Location Date Diagnosis [facility] [address] [id number] [place] [id number] Dec, Hypotestosteronism E34.9 [facility] [address] [id number], [place] [id number] Nov, [facility] [address] [id number] [place] [address] Nov, Hypotestosteronism E34.9 [facility] [address] [facility] [id number][place] [address] Nov, Pure hypercholesterolemia E78.00 and Primary osteoarthritis, unspecified site M19.[address] [facility] [address] [id number], [place] [id number] Nov, [facility] [address] [id number], [place] [address] 8366 Nov, Tear of left glenoid labrum, subsequent encounter S43.432D [facility] [address] [id number], [place] [address] Nov, Hypotestosteronism E34.9 [facility] [address] [id number][place] [address] Nov, [facility] [address] [id number], [place] [address] Nov, [facility] [address] [id number], [place] [address] Nov, Erectile dysfunction, unspecified erectile dysfunction type N52.9 [facility] [address] [id number], [place] [id number] Nov, Erectile dysfunction, unspecified erectile dysfunction type N52.9 [facility] [address] [id number], [place] [id number] Nov, Viral upper respiratory tract infection J06.9 and Erectile dysfunction, unspecified erectile dysfunction type N52.9 [facility] [address] [id number], [place] [id number] Oct, [facility] [address] [id number], [place] [id number] Oct, [facility] [address] [id number], [place] [address] Oct, Fall on same level due to nature of surface, initial encounter W18.39XA and Erectile dysfunction, unspecified erectile dysfunction type N52.9 [facility] [address] [id number] [place] [address] 47736- 7226 Sep, [facility] [id number] [place] [address] 90144- 7119 Sep, Tear of left rotator cuff, unspecified tear extent M75.102 and Primary osteoarthritis, 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 [place] [address] [id number] [place] [address] 76085- 9360 Aug, Primary osteoarthritis, unspecified site M19.91 [place] [address] [place] [id number] [place] [address] 68982- 6915 Jul, [place] [address] [place] [id number] [place] [address] 04526- 9285 Jul, Primary osteoarthritis, unspecified site M19.91 [facility] [id number] [place] [address] 15706- 3852 Jul, Lumbago with sciatica, right side M54.41 [place] [address] [id number] [place] [address] 19131- 4215 Jul, Primary osteoarthritis, 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 and Injury of left rotator cuff, subsequent encounter S46.002D [place] [id number] [place] [address] 95372- 1144 Jul, [facility] [id number] [place] [address] 56898- 1827 Jul, [facility] [id number] [place] [address] 77821- 2009 Jul, [facility] [id number] [place] [address] 02129- 9698 Jul, Lumbago with sciatica, left side M54.42 ; Lumbago with sciatica, right side M54.41 ; Left shoulder pain, unspecified chronicity M25.512 and Essential hypertension I10 [place] [id number] [place] [address] 96783- 0820 Jun, Lumbago with sciatica, left side M54.42 ; Lumbago with sciatica, right side M54.41 ; Left shoulder pain, unspecified chronicity M25.512 ; Essential hypertension I10 ; Heart murmur previously undiagnosed R01.1 ; Overweight E66.3 ; Anxiety F41.9 and Chronic prescription opiate use Z79.891 [place] [address] 62583- 1213 Jun, Primary osteoarthritis, unspecified site M19.91 [place] [address] 51365- 0689 Jun, [place] [address] 60706- 3990 May, Primary osteoarthritis, unspecified site M19.91 [place] [address] 51329- 8012 May, Injury of left rotator cuff, subsequent encounter S46.002D [place] [address] [id number] [place] [address] 98839- 4740 May, [place] [address] [id number] [place] [address] 00740- 0344 Apr, [place] [address] 26047- 5404 Apr, PVD (peripheral vascular disease) I73.9 ; Right leg claudication I73.9 ; Hyperlipidemia, unspecified hyperlipidemia type E78.5 ; Occlusion of femoropopliteal bypass graft, 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 and Essential hypertension I10 [place] [id number] [place] [address] 18959- 4732 Apr, Left shoulder pain, unspecified chronicity M25.512 [place] [address] [place] [address]- 5179 Mar, Left shoulder pain, unspecified chronicity M25.512 [facility] [id number] [place] [address] 81723- 0868 Mar, [facility] [id number] [place] [address] 42616- 8691 Mar, [facility] [id number] [place] [address] 51530- 2612 Mar, Dupuytren's contracture of hand M72.0 ; Essential hypertension I10 ; Pure hypercholesterolemia E78.00 ; Primary osteoarthritis, unspecified site M19.91 ; PVD (peripheral vascular disease) I73.9 and Moderate single current episode of major depressive disorder F32.1 [facility] [id number] [place] [address] [id number] Feb, Dental examination Z01.20 and Dental caries K02.9 [place] [id number] [place] [address] 89443- 7887 Feb, Primary osteoarthritis, unspecified site M19.91 [place] [id number] [place] [address] 13258- 1023 Feb, [place] [id number] [place] [address] 57398- 1272 Feb, [place] [id number] [place] [address] 77382- 4799 Nov, [facility] [id number] [place] [address] 50204- 6798 Nov, Dupuytren's contracture of hand M72.0 ; Pure hypercholesterolemia E78.00 ; Essential hypertension I10 ; PVD (peripheral vascular disease) I73.9 ; Primary osteoarthritis, unspecified site M19.91 and Rheumatoid arthritis, involving unspecified site, unspecified rheumatoid factor presence M06.9 [facility] [id number] [place] [address] 87576- 9375 Nov, IMMUNIZATIONS No Known Immunizations SOCIAL HISTORY Never Assessed REASON FOR VISIT Xray (walk-in) PLAN OF CARE VITAL SIGNS MEDICATIONS Unknown Medications RESULTS Name Result Date Reference Range Xray : Shoulder, Left 2 view (IN HOUSE) 2017-04-20 PROCEDURES Procedure Date Ordered Result Body Site X-RAY EXAM OF SHOULDER Apr 20, 2017 INSTRUCTIONS MEDICATIONS ADMINISTERED No Known Medications MEDICAL (GENERAL) HISTORY Type Description Date Medical History dupuytren's contracture-hand bilateral Medical History hypertension Medical History hyperlipidemia Medical History Arthritis Medical History peripheral vascular disease Medical History rheumatoid arthritis Surgical History cervical fusion C3-C7 -[facility] 05/2015 Surgical History dupuytren's contracture-bilateral hands Surgical History Artery bypass in right leg Surgical History Occipital bone surgery right side Hospitalization History Surgery(s) only
--- OUTSIDE RECORDS SUMMARY | 2018-03-03 20:24 | XMS REPORT ---
Author Author JUVE Diaz Organization [facility] Address [address] [place] [address] Care Team Providers Care Manager Lvn Name Role Phone JUVE Diaz Unavailable PROBLEMS Type Condition ICD9-CM Code NTU52-CP Code Onset Dates Condition Status SNOMED Code Problem Hyperlipidemia, unspecified hyperlipidemia type E78.5 Active 72759203 Problem Anxiety F41.9 Active 30452551 Problem Primary osteoarthritis, 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 Active 25520052 Problem Erectile dysfunction, unspecified erectile dysfunction type N52.9 Active 050322862 Problem Tear of left rotator cuff, unspecified tear extent M75.102 Active 1744067 Problem Lumbago with sciatica, right side M54.41 Active 993211014347406 Problem Lumbago with sciatica, left side M54.42 Active 526064735 Problem Left shoulder pain, unspecified chronicity M25.512 Active 32910472 Problem Chronic prescription opiate use Z79.891 Active 496257263 Problem Dupuytren's contracture of hand M72.0 Active 849798495 Problem Pure hypercholesterolemia E78.00 Active 259981293 Problem Essential hypertension I10 Active 00717934 Problem PVD (peripheral vascular disease) I73.9 Active 044646566 Problem Primary osteoarthritis, unspecified site M19.91 Active 045516135 Problem Moderate single current episode of major depressive disorder F32.1 Active 09591805 Problem Rheumatoid arthritis, involving unspecified site, unspecified rheumatoid factor presence M06.9 Active 34081325 Problem Right leg claudication I73.9 Active 629747767 ALLERGIES No Information ENCOUNTERS Encounter Location Date Diagnosis [facility] [address] [facility] [id number] [place] [id number] Nov, [facility] [address] [facility] [id number] [address] Nov, Hypotestosteronism E34.9 [facility] [address] [facility] [id number] [place] [id number] Nov, Pure hypercholesterolemia E78.00 and Primary osteoarthritis, unspecified site M19.[address] [facility] [address] [id number] [id number] Nov, [facility] [address] [facility] [id number] [address] Nov, Tear of left glenoid labrum, subsequent encounter S43.432D [facility] [address] [id number][place] [id number] Nov, Hypotestosteronism E34.9 [facility] [address] [id number][place] [id number] Nov, [facility] [address] [id number][place] [id number] Nov, [facility] [address] [id number][place] [id number] Nov, Erectile dysfunction, unspecified erectile dysfunction type N52.9 [facility] [address] [id number][place] [id number] Nov, Erectile dysfunction, unspecified erectile dysfunction type N52.9 [facility] [address] [id number][place] [id number] Nov, Viral upper respiratory tract infection J06.9 and Erectile dysfunction, unspecified erectile dysfunction type N52.9 [facility] [address] [id number][place] [id number] Oct, [facility] [address] [id number][place] [id number] Oct, [facility] [address] [id number], [place] [id number] Oct, Fall on same level due to nature of surface, initial encounter W18.39XA and Erectile dysfunction, unspecified erectile dysfunction type N52.9 [facility] [address] [id number] [place] [address] 16349- 1899 Sep, [facility] [id number] [place] [address] 01955- 9331 Sep, Tear of left rotator cuff, unspecified tear extent M75.102 and Primary osteoarthritis, 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 [facility] [id number] [place] [address] 46729- 4019 Aug, Primary osteoarthritis, unspecified site M19.91 [facility] [address] [address]67- 6366 Jul, [place] [address] [address]- 2787 Jul, Primary osteoarthritis, unspecified site M19.91 [facility] [id number] [place] [address] 31898- 0901 Jul, Lumbago with sciatica, right side M54.41 [place] [address] [id number] [place] [address] 74956- 8657 Jul, Primary osteoarthritis, 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 and Injury of left rotator cuff, subsequent encounter S46.002D [place] [id number] [place] [address] 44891- 1357 Jul, [facility] [id number] [place] [address] 18915- 2267 Jul, [facility] [id number] [place] [address] 10759- 9607 Jul, [facility] [id number] [place] [address] 60018- 1218 Jul, Lumbago with sciatica, left side M54.42 ; Lumbago with sciatica, right side M54.41 ; Left shoulder pain, unspecified chronicity M25.512 and Essential hypertension I10 [facility] [id number] [place] [address] 98911- 7427 31 Oct, 2017 Lumbago with sciatica, left side M54.42 ; Lumbago with sciatica, right side M54.41 ; Left shoulder pain, unspecified chronicity M25.512 ; Essential hypertension I10 ; Heart murmur previously undiagnosed R01.1 ; Overweight E66.3 ; Anxiety F41.9 and Chronic prescription opiate use Z79.891 [place] [id number] [place] [address] 17421- 6229 Jun, Primary osteoarthritis, unspecified site M19.91 [place] [id number] [place] [address] 63753- 7892 Jun, [place] [address] 55630- 6129 May, Primary osteoarthritis, unspecified site M19.91 [place] [id number] [place] [address] 87881- 7897 May, Injury of left rotator cuff, subsequent encounter S46.002D [place] [id number] [place] [address] 33869- 2680 May, [place] [id number] [place] [address] 68616- 9127 Apr, [place] [id number] [place] [address] 36601- 3918 Apr, PVD (peripheral vascular disease) I73.9 ; Right leg claudication I73.9 ; Hyperlipidemia, unspecified hyperlipidemia type E78.5 ; Occlusion of femoropopliteal bypass graft, 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 and Essential hypertension I10 [place] [address] [place] [address] 28132- 5928 Apr, Left shoulder pain, unspecified chronicity M25.512 [place] [id number] [place] [address] 81173- 7891 Mar, Left shoulder pain, unspecified chronicity M25.512 [place] [id number] [place] [address] 52880- 4544 Mar, [facility] [address] [place] [address] 19250- 6847 Mar, [facility] [id number] [place] [address] 90907- 4942 Mar, Dupuytren's contracture of hand M72.0 ; Essential hypertension I10 ; Pure hypercholesterolemia E78.00 ; Primary osteoarthritis, unspecified site M19.91 ; PVD (peripheral vascular disease) I73.9 and Moderate single current episode of major depressive disorder F32.1 [facility] [address] [place] [id number] Feb, Dental examination Z01.20 and Dental caries K02.9 [facility] [id number] [place] [address] 25160- 5924 Feb, Primary osteoarthritis, unspecified site M19.91 [facility] [id number] [place] [address] 79575- 2774 Feb, [place] [id number] [place] [address] 68645- 9007 Feb, [facility] [id number] [place] [address] 96987- 7115 Nov, [facility] [id number] [place] [address] 20702- 4720 Nov, Dupuytren's contracture of hand M72.0 ; Pure hypercholesterolemia E78.00 ; Essential hypertension I10 ; PVD (peripheral vascular disease) I73.9 ; Primary osteoarthritis, unspecified site M19.91 and Rheumatoid arthritis, involving unspecified site, unspecified rheumatoid factor presence M06.9 [facility] [address] [place] [address] 95174- 8092 Nov, IMMUNIZATIONS No Known Immunizations SOCIAL HISTORY Never Assessed REASON FOR VISIT Controlled Med Refill PLAN OF CARE VITAL SIGNS MEDICATIONS Medication Instructions Dosage Frequency Start Date End Date Duration Status Tramadol HCl 50 mg Orally 3 times a day 1 tablet 8h 28 Active RESULTS No Results PROCEDURES No Known procedures INSTRUCTIONS MEDICATIONS ADMINISTERED No Known Medications MEDICAL (GENERAL) HISTORY Type Description Date Medical History dupuytren's contracture-hand bilateral Medical History hypertension Medical History hyperlipidemia Medical History Arthritis Medical History peripheral vascular disease Medical History rheumatoid arthritis Surgical History cervical fusion C3-C7 -[facility] 05/2015 Surgical History dupuytren's contracture-bilateral hands Surgical History Artery bypass in right leg Surgical History Occipital bone surgery right side Hospitalization History Surgery(s) only
--- OUTSIDE RECORDS SUMMARY | 2018-03-03 20:24 | XMS REPORT ---
Author Author JUVE Diaz Organization [facility] Address [address] [place] [address] Care Team Providers Care Language Translator Name Role Phone JUVE Diaz Unavailable PROBLEMS Type Condition ICD9-CM Code ZJO00-XE Code Onset Dates Condition Status SNOMED Code Problem Primary osteoarthritis, 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 Active 60315512 Problem Lumbago with sciatica, left side M54.42 Active 575818721 Problem Anxiety F41.9 Active 21180407 Problem Hypotestosteronism E34.9 Active 4781044837412 Problem Erectile dysfunction, unspecified erectile dysfunction type N52.9 Active 067502400 Problem Chronic prescription opiate use Z79.891 Active 742172168 Problem Lumbago with sciatica, right side M54.41 Active 067591944354769 Problem Tear of left rotator cuff, unspecified tear extent M75.102 Active 1657787 Problem Left shoulder pain, unspecified chronicity M25.512 Active 04563095 Problem Pure hypercholesterolemia E78.00 Active 292461632 Problem Primary osteoarthritis, unspecified site M19.91 Active 922784200 Problem Dupuytren's contracture of hand M72.0 Active 890247025 Problem PVD (peripheral vascular disease) I73.9 Active 543197464 Problem Moderate single current episode of major depressive disorder F32.1 Active 13769593 Problem Rheumatoid arthritis, involving unspecified site, unspecified rheumatoid factor presence M06.9 Active 73408922 Problem Right leg claudication I73.9 Active 566189319 Problem Essential hypertension I10 Active 87392982 Problem Hyperlipidemia, unspecified hyperlipidemia type E78.5 Active 61742451 ALLERGIES No Information ENCOUNTERS Encounter Location Date Diagnosis [facility] [address] [id number] [place] [id number] Dec, Hypotestosteronism E34.9 [facility] [address] [id number] [place] [id number] Nov, [facility] [address] [facility] [id number] [place] [address] Nov, Hypotestosteronism E34.9 [facility] [address] [facility][1] [id number] [place] [id number] Nov, Pure hypercholesterolemia E78.00 and Primary osteoarthritis, unspecified site M19.[address] [facility] [address] [id number][place] [id number] Nov, [facility] [address] [facility] [id number], [place] [address] Nov, Tear of left glenoid labrum, subsequent encounter S43.432D [facility] [address] [id number][place] [id number] Nov, Hypotestosteronism E34.9 [facility] [address] [id number], [place] [id number] Nov, [facility] [address] [id number][place] [id number] Nov, [facility] [address] [id number][place] [id number] Nov, Erectile dysfunction, unspecified erectile dysfunction type N52.9 [facility] [address] [id number][place] [id number] Nov, Erectile dysfunction, unspecified erectile dysfunction type N52.9 [facility] [address] [id number][place] [id number] Nov, Viral upper respiratory tract infection J06.9 and Erectile dysfunction, unspecified erectile dysfunction type N52.9 [facility] [address] [id number][place] [id number] Oct, [facility] [address] [id number], [place] [id number] Oct, [facility] [address] [id number][place] [id number] Oct, Fall on same level due to nature of surface, initial encounter W18.39XA and Erectile dysfunction, unspecified erectile dysfunction type N52.9 [facility] [address] [id number] [place] [address] 90531- 6072 Sep, [facility] [id number] [place] [address] 05551- 2187 Sep, Tear of left rotator cuff, unspecified tear extent M75.102 and Primary osteoarthritis, 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 [place] [address] [id number] [place] [address] 27476- 2760 Aug, Primary osteoarthritis, unspecified site M19.91 [place] [facility] [address] [place] [id number] [place] [address] 57650- 9190 Jul, [facility] [address] [address] [id number] [place] [address] 49752- 7274 Jul, Primary osteoarthritis, unspecified site M19.91 [facility] [id number] [place] [address] 53209- 9110 Jul, Lumbago with sciatica, right side M54.41 [place] [address] [id number] [place] [address] 74440- 7172 Jul, Primary osteoarthritis, 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 and Injury of left rotator cuff, subsequent encounter S46.002D [place] [address] [id number] [place] [address] 99654- 2708 Jul, [facility] [id number] [place] [address] 20413- 9959 Jul, [facility] [id number] [place] [address] 89791- 6329 Jul, [facility] [id number] [place] [address] 94012- 9171 Jul, Lumbago with sciatica, left side M54.42 ; Lumbago with sciatica, right side M54.41 ; Left shoulder pain, unspecified chronicity M25.512 and Essential hypertension I10 [place] [id number] [place] [address] 03212- 3553 Jun, Lumbago with sciatica, left side M54.42 ; Lumbago with sciatica, right side M54.41 ; Left shoulder pain, unspecified chronicity M25.512 ; Essential hypertension I10 ; Heart murmur previously undiagnosed R01.1 ; Overweight E66.3 ; Anxiety F41.9 and Chronic prescription opiate use Z79.891 [place] [address] 62458- 9253 Jun, Primary osteoarthritis, unspecified site M19.91 [place] [address] 71092- 6844 Jun, [place] [address] 94872- 4492 May, Primary osteoarthritis, unspecified site M19.91 [place] [address] 11637- 5074 May, Injury of left rotator cuff, subsequent encounter S46.002D [place] [address] [id number] [place] [address] 81974- 6665 May, [place] [address] [id number] [place] [address] 43265- 2318 Apr, [place] [address] 84789- 4837 Apr, PVD (peripheral vascular disease) I73.9 ; Right leg claudication I73.9 ; Hyperlipidemia, unspecified hyperlipidemia type E78.5 ; Occlusion of femoropopliteal bypass graft, 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 and Essential hypertension I10 [place] [address] [id number] [place] [address] 51876- 8284 Apr, Left shoulder pain, unspecified chronicity M25.512 [place] [address] [place] [address]- 3415 Mar, Left shoulder pain, unspecified chronicity M25.512 [facility] [id number] [place] [address] 28404- 8064 Mar, [facility] [id number] [place] [address] 26440- 7312 Mar, [facility] [id number] [place] [address] 58980- 6490 Mar, Dupuytren's contracture of hand M72.0 ; Essential hypertension I10 ; Pure hypercholesterolemia E78.00 ; Primary osteoarthritis, unspecified site M19.91 ; PVD (peripheral vascular disease) I73.9 and Moderate single current episode of major depressive disorder F32.1 [facility] [id number] [place] [address] [id number] Feb, Dental examination Z01.20 and Dental caries K02.9 [place] [id number] [place] [address] 54869- 5802 Feb, Primary osteoarthritis, unspecified site M19.91 [place] [address] [place] [id number] [place] [address] 24654- 4598 Feb, [place] [address] [id number] [place] [address] 07961- 7338 Feb, [place] [address] [id number] [place] [address] 93180- 1742 Nov, [facility] [id number] [place] [address] 91223- 6411 Nov, Dupuytren's contracture of hand M72.0 ; Pure hypercholesterolemia E78.00 ; Essential hypertension I10 ; PVD (peripheral vascular disease) I73.9 ; Primary osteoarthritis, unspecified site M19.91 and Rheumatoid arthritis, involving unspecified site, unspecified rheumatoid factor presence M06.9 [facility] [id number] [place] [address] 06914- 2489 Nov, IMMUNIZATIONS No Known Immunizations SOCIAL HISTORY Never Assessed REASON FOR VISIT PLAN OF CARE VITAL SIGNS MEDICATIONS Medication Instructions Dosage Frequency Start Date End Date Duration Status Nabumetone 500 mg Orally Twice a day 1 tablet 12h Apr, Apr, 30 day(s) Active Hydrocodone-Acetaminophen 5-325 MG Orally 3 times a day 1 tablet as needed 8h Apr, 15 days Active RESULTS No Results PROCEDURES No Known procedures INSTRUCTIONS MEDICATIONS ADMINISTERED No Known Medications MEDICAL (GENERAL) HISTORY Type Description Date Medical History dupuytren's contracture-hand bilateral Medical History hypertension Medical History hyperlipidemia Medical History Arthritis Medical History peripheral vascular disease Medical History rheumatoid arthritis Surgical History cervical fusion C3-C7 -[facility] 05/2015 Surgical History dupuytren's contracture-bilateral hands Surgical History Artery bypass in right leg Surgical History Occipital bone surgery right side Hospitalization History Surgery(s) only
--- OUTSIDE RECORDS SUMMARY | 2018-03-03 20:25 | XMS REPORT ---
Author Author SINDY LANDAVERDE [facility] Address [address] [place] [address] Care Team Providers Care Head Grower Name Role Phone SINDY LANDAVERDE Unavailable PROBLEMS Type Condition ICD9-CM Code [id number] Code Onset Dates Condition Status SNOMED Code Problem Primary osteoarthritis, 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 Active 52638507 Problem Lumbago with sciatica, left side M54.42 Active 177792694 Problem Anxiety F41.9 Active 28946680 Problem Hypotestosteronism E34.9 Active 9314471679722 Problem Erectile dysfunction, unspecified erectile dysfunction type N52.9 Active 156002878 Problem Chronic prescription opiate use Z79.891 Active 749505401 Problem Lumbago with sciatica, right side M54.41 Active 089311192324912 Problem Tear of left rotator cuff, unspecified tear extent M75.102 Active 9551757 Problem Left shoulder pain, unspecified chronicity M25.512 Active 41907093 Problem Pure hypercholesterolemia E78.00 Active 478312111 Problem Primary osteoarthritis, unspecified site M19.91 Active 849566523 Problem Dupuytren's contracture of hand M72.0 Active 002811354 Problem PVD (peripheral vascular disease) I73.9 Active 752797877 Problem Moderate single current episode of major depressive disorder F32.1 Active 84635155 Problem Rheumatoid arthritis, involving unspecified site, unspecified rheumatoid factor presence M06.9 Active 27897898 Problem Right leg claudication I73.9 Active 026420053 Problem Essential hypertension I10 Active 80688384 Problem Hyperlipidemia, unspecified hyperlipidemia type E78.5 Active 02262979 ALLERGIES No Information ENCOUNTERS Encounter Location Date Diagnosis [facility] [address] [id number] [place] [id number] January, Hypotestosteronism E34.9 [facility] [address] [id number] [id number] Dec, [facility] [address] [id number] [place] [id number] Dec, Erectile dysfunction, unspecified erectile dysfunction type N52.9 [facility] [place] [address] [facility] [id number], [place] [address] Dec, [facility] [place] [address] [facility] [id number][place] [address] Dec, Pre-operative cardiovascular examination Z01.810 ; PVD (peripheral vascular disease) I73.9 ; Anxiety F41.9 ; Rheumatoid arthritis, involving unspecified site, unspecified rheumatoid factor presence M06.9 ; Essential hypertension I10 ; Hyperlipidemia, unspecified hyperlipidemia type E78.5 and Hypotestosteronism E34.9 [facility] [address] [facility] [address] [id number] [place] [address] Dec, [facility] [address] [id number] [place] [address] Dec, Erectile dysfunction, unspecified erectile dysfunction type N52.9 and Hypotestosteronism E34.9 [facility] [address] [id number] [place] [id number] Dec, Hypotestosteronism E34.9 [facility] [address] [id number], [place] [id number] Nov, [facility] [address] [id number] [address]10 Nov, Hypotestosteronism E34.9 [facility] [address] [id number], [place] [id number] Nov, Pure hypercholesterolemia E78.00 and Primary osteoarthritis, unspecified site M19.91 [facility] [address] [id number] [place] [id number] Nov, [facility] [address] [facility] [id number] [place] 258[address]- [address]16 Nov, Tear of left glenoid labrum, subsequent encounter S43.432D [facility] [address] [id number] [place] [address] 15 Nov, 2017 Hypotestosteronism E34.9 [facility] [address] [id number] [place] [id number] Nov, [facility] [address] [id number] [place] [id number] Nov, [facility] [address] [id number] [place] [address] Nov, Erectile dysfunction, unspecified erectile dysfunction type N52.9 [facility] [address] [id number] [place] [address] Nov, Erectile dysfunction, unspecified erectile dysfunction type N52.9 [facility] [address] [id number] [place] [id number] Nov, Viral upper respiratory tract infection J06.9 and Erectile dysfunction, unspecified erectile dysfunction type N52.9 [facility] [address] [id number] [place] [id number] Oct, [facility] [address] [id number] [place] [id number] Oct, [facility] [address] [id number] [place] [address] Oct, Fall on same level due to nature of surface, initial encounter W18.39XA and Erectile dysfunction, unspecified erectile dysfunction type N52.9 [facility] [address] [id number] [address] 9[address] Sep, [facility] [address]00565100[place] [address] Sep, Tear of left rotator cuff, unspecified tear extent M75.102 and Primary osteoarthritis, 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 [facility] [address] [id number] [address] Aug, Primary osteoarthritis, unspecified site M19.91 [facility] [address] [place] [address] 29143- 5961 Jul, [place] [id number] [place] [address] 69505- 0238 Jul, Primary osteoarthritis, unspecified site M19.91 [place] [address] [place] [address] 67234- 5219 Jul, Lumbago with sciatica, right side M54.41 [place] [id number] [place] [address] 15582- 9004 Jul, Primary osteoarthritis, 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 and Injury of left rotator cuff, subsequent encounter S46.002D [place] [id number] [place] [address] 24895- 0664 Jul, [place] [id number] [place] [address] 69472- 2648 Jul, [place] [id number] [place] [address] 05747- 6674 Jul, [place] [id number] [place] [address] 67241- 4714 Jul, Lumbago with sciatica, left side M54.42 ; Lumbago with sciatica, right side M54.41 ; Left shoulder pain, unspecified chronicity M25.512 and Essential hypertension I10 [place] [address] [place] [address] 57831- 1030 Jun, Lumbago with sciatica, left side M54.42 ; Lumbago with sciatica, right side M54.41 ; Left shoulder pain, unspecified chronicity M25.512 ; Essential hypertension I10 ; Heart murmur previously undiagnosed R01.1 ; Overweight E66.3 ; Anxiety F41.9 and Chronic prescription opiate use Z79.891 [place] [address] [place] [address] 15918- 0013 Jun, Primary osteoarthritis, unspecified site M19.91 [place] [address] [id number] [place] [address] 67054- 5048 Jun, [place] [address] [id number] [place] [address] 90063- 4712 May, Primary osteoarthritis, unspecified site M19.91 [place] [id number] [place] [address] 40098- 0384 May, Injury of left rotator cuff, subsequent encounter S46.002D [place] [id number] [place] [address] 26208- 2120 May, [place] [id number] [place] [address] 04416- 3247 Apr, [place] [id number] [place] [address] 77746- 3003 Apr, PVD (peripheral vascular disease) I73.9 ; Right leg claudication I73.9 ; Hyperlipidemia, unspecified hyperlipidemia type E78.5 ; Occlusion of femoropopliteal bypass graft, 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 and Essential hypertension I10 [place] [id number] [place] [address] 62042- 4349 Apr, Left shoulder pain, unspecified chronicity M25.512 [place] [id number] [place] [address] 74913- 0310 Mar, Left shoulder pain, unspecified chronicity M25.512 [place] [id number] [place] [address] 15653- 2490 Mar, [place] [id number] [place] [address] 73447- 2350 Mar, [place] [id number] [place] [address] 75464- 9651 Mar, Dupuytren's contracture of hand M72.0 ; Essential hypertension I10 ; Pure hypercholesterolemia E78.00 ; Primary osteoarthritis, unspecified site M19.91 ; PVD (peripheral vascular disease) I73.9 and Moderate single current episode of major depressive disorder F32.1 [facility] [address] [facility] [id number] [place] [id number] 29 Feb, 2017 Dental examination Z01.20 and Dental caries K02.9 [facility] [address]65100[place] [address] 9[address] Feb, Primary osteoarthritis, unspecified site M19.91 [facility] [address]65100[place] [address] 7804 Feb, [place] [address] [place] [address] 33492- 2286 Feb, [place] [address] [place] [address] 23359- 7403 Nov, [place] [address] [place] [address] 55041- 3162 Nov, Dupuytren's contracture of hand M72.0 ; Pure hypercholesterolemia E78.00 ; Essential hypertension I10 ; PVD (peripheral vascular disease) I73.9 ; Primary osteoarthritis, unspecified site M19.91 and Rheumatoid arthritis, involving unspecified site, unspecified rheumatoid factor presence M06.9 [place] [address] [place] [address] 31842- 9998 Nov, IMMUNIZATIONS No Known Immunizations SOCIAL HISTORY Never Assessed REASON FOR VISIT PLAN OF CARE VITAL SIGNS MEDICATIONS Unknown Medications RESULTS No Results PROCEDURES No Known procedures INSTRUCTIONS MEDICATIONS ADMINISTERED No Known Medications MEDICAL (GENERAL) HISTORY Type Description Date Medical History dupuytren's contracture-hand bilateral Medical History hypertension Medical History hyperlipidemia Medical History Arthritis Medical History peripheral vascular disease Medical History rheumatoid arthritis Surgical History cervical fusion C3-C7 -[facility] 05/2015 Surgical History dupuytren's contracture-bilateral hands Surgical History Artery bypass in right leg Surgical History Occipital bone surgery right side Surgical History surgery near right eye Hospitalization History Surgery(s) only
--- OUTSIDE RECORDS SUMMARY | 2018-03-03 20:25 | XMS REPORT ---
Author Author SINDY LANDAVERDE [facility] Address [address] [place] [address] Care Team Providers Care Community Development Director Name Role Phone SINDY LANDAVERDE Unavailable PROBLEMS Type Condition ICD9-CM Code LBO67-NT Code Onset Dates Condition Status SNOMED Code Problem Primary osteoarthritis, 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 Active 60311675 Problem Lumbago with sciatica, left side M54.42 Active 039648661 Problem Anxiety F41.9 Active 36778094 Problem Hypotestosteronism E34.9 Active 9476581587667 Problem Erectile dysfunction, unspecified erectile dysfunction type N52.9 Active 869138074 Problem Chronic prescription opiate use Z79.891 Active 446958656 Problem Lumbago with sciatica, right side M54.41 Active 591294349966087 Problem Tear of left rotator cuff, unspecified tear extent M75.102 Active 5732172 Problem Left shoulder pain, unspecified chronicity M25.512 Active 20512296 Problem Pure hypercholesterolemia E78.00 Active 325645560 Problem Primary osteoarthritis, unspecified site M19.91 Active 144212389 Problem Dupuytren's contracture of hand M72.0 Active 520545911 Problem PVD (peripheral vascular disease) I73.9 Active 119978640 Problem Moderate single current episode of major depressive disorder F32.1 Active 26442005 Problem Rheumatoid arthritis, involving unspecified site, unspecified rheumatoid factor presence M06.9 Active 32287616 Problem Right leg claudication I73.9 Active 826943575 Problem Essential hypertension I10 Active 40698507 Problem Hyperlipidemia, unspecified hyperlipidemia type E78.5 Active 45182766 ALLERGIES No Information ENCOUNTERS Encounter Location Date Diagnosis [facility] [address] [id number] [place] [id number] January, [place] [address] [id number] [place] [id number] January, Hypotestosteronism E34.9 [facility] [address] [id number][place] [id number] January, Hypotestosteronism E34.9 [facility] [address] [facility] [id number][place] [id number] Dec, [facility] [address] [id number][place] [id number] Dec, Erectile dysfunction, unspecified erectile dysfunction type N52.9 [facility] [address] [facility] [id number][place] [address] Dec, [facility] [address]00565100[place] [address] Dec, Pre-operative cardiovascular examination Z01.810 ; PVD (peripheral vascular disease) I73.9 ; Anxiety F41.9 ; Rheumatoid arthritis, involving unspecified site, unspecified rheumatoid factor presence M06.9 ; Essential hypertension I10 ; Hyperlipidemia, unspecified hyperlipidemia type E78.5 and Hypotestosteronism E34.[address] [facility] [address] [id number][place] [address] Dec, [facility] [address] [id number][place] [address] Dec, Erectile dysfunction, unspecified erectile dysfunction type N52.9 and Hypotestosteronism E34.[address] [facility] [address] [id number], [place] [id number] Dec, Hypotestosteronism E34.9 [facility] [address] [facility] [id number][place] [address] Nov, [facility] [address] [facility] [id number], [place] [address]- 5821 Nov, Hypotestosteronism E34.9 [facility] [address] [facility] [id number][place] [address] Nov, Pure hypercholesterolemia E78.00 and Primary osteoarthritis, unspecified site M19.[address] [facility] [address] [id number], [place] [id number] Nov, [facility] [address] [facility] [id number], [place] [address]- 7729 Nov, Tear of left glenoid labrum, subsequent encounter S43.432D [facility] [address] [id number], [place] [address] Nov, Hypotestosteronism E34.9 [facility] [address] [id number], [place] [id number] Nov, [facility] [address] [id number], [place] [id number] 14 Nov, 2017 [facility] [address] [id number], [place] [id number] Nov, Erectile dysfunction, unspecified erectile dysfunction type N52.9 [facility] [address] [id number], [place] [id number] Nov, Erectile dysfunction, unspecified erectile dysfunction type N52.9 [facility] [address] [id number], [place] [id number] Nov, Viral upper respiratory tract infection J06.9 and Erectile dysfunction, unspecified erectile dysfunction type N52.9 [facility] [address] [id number], [place] [id number] Oct, [facility] [address] [id number], [place] [id number] Oct, [facility] [address] [id number] [place] [address] Oct, Fall on same level due to nature of surface, initial encounter W18.39XA and Erectile dysfunction, unspecified erectile dysfunction type N52.9 [facility] [address] [facility] [id number], [place] [address]8917882- 9548 Sep, [facility] [address] [facility] [id number], [place] [address]- 5835 Sep, Tear of left rotator cuff, unspecified tear extent M75.102 and Primary osteoarthritis, 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 [place] [id number] [place] [address] 77742- 7369 Aug, Primary osteoarthritis, unspecified site M19.91 [facility] [id number] [place] [address] 66978- 4955 Jul, [place] [address] 85228- 6345 Jul, Primary osteoarthritis, unspecified site M19.91 [place] [id number] [place] [address] 26170- 3091 Jul, Lumbago with sciatica, right side M54.41 [place] [id number] [place] [address] 40768- 0697 Jul, Primary osteoarthritis, 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 and Injury of left rotator cuff, subsequent encounter S46.002D [place] [id number] [place] [address] 33759- 8490 Jul, [place] [id number] [place] [address] 14373- 6007 Jul, [place] [id number] [place] [address] 25488- 4403 Jul, [place] [id number] [place] [address] 29691- 1103 Jul, Lumbago with sciatica, left side M54.42 ; Lumbago with sciatica, right side M54.41 ; Left shoulder pain, unspecified chronicity M25.512 and Essential hypertension I10 [place] [address] [place] [address] 27020- 3430 Jun, Lumbago with sciatica, left side M54.42 ; Lumbago with sciatica, right side M54.41 ; Left shoulder pain, unspecified chronicity M25.512 ; Essential hypertension I10 ; Heart murmur previously undiagnosed R01.1 ; Overweight E66.3 ; Anxiety F41.9 and Chronic prescription opiate use Z79.891 [place] [address] [place] [address] 40148- 6738 Jun, Primary osteoarthritis, unspecified site M19.91 [facility] [id number] [place] [address] 81942- 2310 Jun, [place] [id number] [place] [address] 07967- 3924 May, Primary osteoarthritis, unspecified site M19.91 [place] [id number] [place] [address] 49849- 2469 May, Injury of left rotator cuff, subsequent encounter S46.002D [place] [id number] [place] [address] 88205- 6048 May, [place] [id number] [place] [address] 31440- 1753 Apr, [place] [id number] [place] [address] 55711- 6931 Apr, PVD (peripheral vascular disease) I73.9 ; Right leg claudication I73.9 ; Hyperlipidemia, unspecified hyperlipidemia type E78.5 ; Occlusion of femoropopliteal bypass graft, 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 and Essential hypertension I10 [place] [address] [place] [address] 68957- 3819 Apr, Left shoulder pain, unspecified chronicity M25.512 [place] [id number] [place] [address] 44714- 7263 Mar, Left shoulder pain, unspecified chronicity M25.512 [place] [id number] [place] [address] 45554- 2332 Mar, [place] [id number] [place] [address] 39020- 3243 Mar, [place] [address] 86851- 4752 Mar, Dupuytren's contracture of hand M72.0 ; Essential hypertension I10 ; Pure hypercholesterolemia E78.00 ; Primary osteoarthritis, unspecified site M19.91 ; PVD (peripheral vascular disease) I73.9 and Moderate single current episode of major depressive disorder F32.1 [facility] [address] [id number], [place] [id number] Feb, Dental examination Z01.20 and Dental caries K02.9 [facility] [address] [place] [address] 05684- 7093 Feb, Primary osteoarthritis, unspecified site M19.91 [facility] [id number] [place] [address] 55250- 3443 Feb, [place] [id number] [place] [address] 70045- 8505 Feb, [facility] [id number] [place] [address] 19157- 9435 Nov, [facility] [id number] [place] [address] 74019- 8993 Nov, Dupuytren's contracture of hand M72.0 ; Pure hypercholesterolemia E78.00 ; Essential hypertension I10 ; PVD (peripheral vascular disease) I73.9 ; Primary osteoarthritis, unspecified site M19.91 and Rheumatoid arthritis, involving unspecified site, unspecified rheumatoid factor presence M06.9 [facility] [address] [place] [address] 06998- 3493 Nov, IMMUNIZATIONS No Known Immunizations SOCIAL HISTORY Never Assessed REASON FOR VISIT Refill request PLAN OF CARE VITAL SIGNS MEDICATIONS Medication Instructions Dosage Frequency Start Date End Date Duration Status Hydrocodone-Acetaminophen 5-325 MG Orally 3 times a day 1 tablet as needed 8h Jul, Aug, 28 days Active RESULTS No Results PROCEDURES No Known procedures INSTRUCTIONS MEDICATIONS ADMINISTERED No Known Medications MEDICAL (GENERAL) HISTORY Type Description Date Medical History dupuytren's contracture-hand bilateral Medical History hypertension Medical History hyperlipidemia Medical History Arthritis Medical History peripheral vascular disease Medical History rheumatoid arthritis Surgical History cervical fusion C3-C7 -[facility] 05/2015 Surgical History dupuytren's contracture-bilateral hands Surgical History Artery bypass in right leg Surgical History Occipital bone surgery right side Surgical History surgery near right eye Hospitalization History Surgery(s) only
--- OUTSIDE RECORDS SUMMARY | 2018-03-03 20:25 | XMS REPORT ---
Author Author JUVE Diaz Organization [facility] Address [address] [place] [address] Care Team Providers Care Hopper Filler Name Role Phone JUVE Diaz Unavailable PROBLEMS Type Condition ICD9-CM Code ROI51-QD Code Onset Dates Condition Status SNOMED Code Problem Hyperlipidemia, unspecified hyperlipidemia type E78.5 Active 57558814 Problem Anxiety F41.9 Active 98779883 Problem Primary osteoarthritis, 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 Active 54023512 Problem Erectile dysfunction, unspecified erectile dysfunction type N52.9 Active 396641223 Problem Tear of left rotator cuff, unspecified tear extent M75.102 Active 5959406 Problem Lumbago with sciatica, right side M54.41 Active 344746064953103 Problem Lumbago with sciatica, left side M54.42 Active 012375323 Problem Left shoulder pain, unspecified chronicity M25.512 Active 29337306 Problem Chronic prescription opiate use Z79.891 Active 023645167 Problem Dupuytren's contracture of hand M72.0 Active 100378193 Problem Pure hypercholesterolemia E78.00 Active 763018711 Problem Essential hypertension I10 Active 77287432 Problem PVD (peripheral vascular disease) I73.9 Active 213053240 Problem Primary osteoarthritis, unspecified site M19.91 Active 692722520 Problem Moderate single current episode of major depressive disorder F32.1 Active 32667294 Problem Rheumatoid arthritis, involving unspecified site, unspecified rheumatoid factor presence M06.9 Active 64693828 Problem Right leg claudication I73.9 Active 256822153 ALLERGIES No Information ENCOUNTERS Encounter Location Date Diagnosis [facility] [address] [facility] [id number] [id number] Nov, [facility] [address] [facility] [id number] [address] Nov, Hypotestosteronism E34.9 [facility] [address] [facility] [id number] [place] [id number] Nov, Pure hypercholesterolemia E78.00 and Primary osteoarthritis, unspecified site M19.[address] [facility] [address] [id number][place] [id number] Nov, [facility] [address] [facility] [id number][place] [address] Nov, Tear of left glenoid labrum, subsequent encounter S43.432D [facility] [address] [id number][place] [id number] Nov, Hypotestosteronism E34.9 [facility] [address] [id number][place] [id number] Nov, [facility] [address] [id number], [place] [id number] Nov, [facility] [address] [id number], [place] [id number] Nov, Erectile dysfunction, unspecified erectile dysfunction type N52.9 [facility] [address] [id number][place] [id number] Nov, Erectile dysfunction, unspecified erectile dysfunction type N52.9 [facility] [address] [id number], [place] [id number] Nov, Viral upper respiratory tract infection J06.9 and Erectile dysfunction, unspecified erectile dysfunction type N52.9 [facility] [address] [id number], [place] [id number] Oct, [facility] [address] [id number], [place] [id number] Oct, [facility] [address] [id number], [place] [id number] Oct, Fall on same level due to nature of surface, initial encounter W18.39XA and Erectile dysfunction, unspecified erectile dysfunction type N52.9 [facility] [id number] [place] [address] 68798- 6463 Sep, [facility] [id number] [place] [address] 03832- 2688 Sep, Tear of left rotator cuff, unspecified tear extent M75.102 and Primary osteoarthritis, 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 [facility] [id number] [place] [address] 05480- 6935 Aug, Primary osteoarthritis, unspecified site M19.91 [facility] [address] [address]- [address] Jul, [place] [address] [address]- 9974 Jul, Primary osteoarthritis, unspecified site M19.91 [facility] [id number] [place] [address] 82864- 9672 Jul, Lumbago with sciatica, right side M54.41 [place] [id number] [place] [address] 63217- 1415 Jul, Primary osteoarthritis, 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 and Injury of left rotator cuff, subsequent encounter S46.002D [place] [address] [place] [id number] [place] [address] 79421- 9444 Jul, [facility] [id number] [place] [address] 37053- 1625 Jul, [facility] [id number] [place] [address] 48306- 7086 Jul, [facility] [id number] [place] [address] 88398- 9623 Jul, Lumbago with sciatica, left side M54.42 ; Lumbago with sciatica, right side M54.41 ; Left shoulder pain, unspecified chronicity M25.512 and Essential hypertension I10 [facility] [id number] [place] [address] 15503- 7187 31 Oct, 2017 Lumbago with sciatica, left side M54.42 ; Lumbago with sciatica, right side M54.41 ; Left shoulder pain, unspecified chronicity M25.512 ; Essential hypertension I10 ; Heart murmur previously undiagnosed R01.1 ; Overweight E66.3 ; Anxiety F41.9 and Chronic prescription opiate use Z79.891 [place] [address] [address] [id number] [place] [address] 20106- 9997 Jun, Primary osteoarthritis, unspecified site M19.91 [place] [address] [place] [id number] [place] [address] 46537- 7344 Jun, [place] [address] 55948- 7467 May, Primary osteoarthritis, unspecified site M19.91 [place] [address] [id number] [place] [address] 31959- 4250 May, Injury of left rotator cuff, subsequent encounter S46.002D [place] [address] [place] [address] [place] [address] 87280- 6799 May, [place] [address] [place] [id number] [place] [address] 04654- 6172 Apr, [place] [address] [place] [address] [place] [address] 16945- 1896 Apr, PVD (peripheral vascular disease) I73.9 ; Right leg claudication I73.9 ; Hyperlipidemia, unspecified hyperlipidemia type E78.5 ; Occlusion of femoropopliteal bypass graft, 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 and Essential hypertension I10 [place] [address] [place] [address] 17076- 6217 Apr, Left shoulder pain, unspecified chronicity M25.512 [place] [address] [id number] [place] [address] 54321- 8533 Mar, Left shoulder pain, unspecified chronicity M25.512 [place] [address] [place] [id number] [place] [address] 76119- 8395 Mar, [facility] [address] [place] [address] 42877- 3258 Mar, [facility] [id number] [place] [address] 98191- 3176 Mar, Dupuytren's contracture of hand M72.0 ; Essential hypertension I10 ; Pure hypercholesterolemia E78.00 ; Primary osteoarthritis, unspecified site M19.91 ; PVD (peripheral vascular disease) I73.9 and Moderate single current episode of major depressive disorder F32.1 [facility] [id number] [place] [id number] Feb, Dental examination Z01.20 and Dental caries K02.9 [facility] [id number] [place] [address] 92706- 2315 Feb, Primary osteoarthritis, unspecified site M19.91 [place] [address] [place] [id number] [place] [address] 26282- 8032 Feb, [place] [address] [place] [id number] [place] [address] 27211- 0684 Feb, [facility] [id number] [place] [address] 14597- 3583 Nov, [facility] [address] [id number] [place] [address] 95239- 9775 Nov, Dupuytren's contracture of hand M72.0 ; Pure hypercholesterolemia E78.00 ; Essential hypertension I10 ; PVD (peripheral vascular disease) I73.9 ; Primary osteoarthritis, unspecified site M19.91 and Rheumatoid arthritis, involving unspecified site, unspecified rheumatoid factor presence M06.9 [place] [address] [address] [id number] [place] [address] 55244- 7545 Nov, IMMUNIZATIONS No Known Immunizations SOCIAL HISTORY Never Assessed REASON FOR VISIT UA [facility] PLAN OF CARE VITAL SIGNS MEDICATIONS Unknown Medications RESULTS Name Result Date Reference Range URINE DRUG SCREEN (IN HOUSE) 2017-03-09 Lot # [id number] Exp date 10/2018 Control + COCAINE neg AMPH neg MTD neg THC neg OPIATE neg BENZO neg PCP neg BAR neg OXY neg MAMP neg TCA neg BUP neg MDMA neg PROCEDURES Procedure Date Ordered Result Body Site DRUG TEST PRSMV DIR OPT OBS March 09, 2017 INSTRUCTIONS MEDICATIONS ADMINISTERED No Known Medications MEDICAL (GENERAL) HISTORY Type Description Date Medical History dupuytren's contracture-hand bilateral Medical History hypertension Medical History hyperlipidemia Medical History Arthritis Medical History peripheral vascular disease Medical History rheumatoid arthritis Surgical History cervical fusion C3-C7 -[facility] 05/2015 Surgical History dupuytren's contracture-bilateral hands Surgical History Artery bypass in right leg Surgical History Occipital bone surgery right side Hospitalization History Surgery(s) only
--- OUTSIDE RECORDS SUMMARY | 2018-03-03 20:25 | XMS REPORT ---
Author Author SINDY LANDAVERDE [facility] Address [address] [place] [address] Care Team Providers Care Production Manager Name Role Phone SINDY LANDAVERDE Unavailable PROBLEMS Type Condition ICD9-CM Code PRW68-FJ Code Onset Dates Condition Status SNOMED Code Problem Primary osteoarthritis, 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 Active 70232634 Problem Lumbago with sciatica, left side M54.42 Active 438523278 Problem Anxiety F41.9 Active 66056527 Problem Hypotestosteronism E34.9 Active 4963957207438 Problem Erectile dysfunction, unspecified erectile dysfunction type N52.9 Active 917682502 Problem Chronic prescription opiate use Z79.891 Active 888197300 Problem Lumbago with sciatica, right side M54.41 Active 804682719242733 Problem Tear of left rotator cuff, unspecified tear extent M75.102 Active 1267960 Problem Left shoulder pain, unspecified chronicity M25.512 Active 96212043 Problem Pure hypercholesterolemia E78.00 Active 111100388 Problem Primary osteoarthritis, unspecified site M19.91 Active 716286529 Problem Dupuytren's contracture of hand M72.0 Active 421145919 Problem PVD (peripheral vascular disease) I73.9 Active 333026306 Problem Moderate single current episode of major depressive disorder F32.1 Active 16208295 Problem Rheumatoid arthritis, involving unspecified site, unspecified rheumatoid factor presence M06.9 Active 81407759 Problem Right leg claudication I73.9 Active 834352715 Problem Essential hypertension I10 Active 05769735 Problem Hyperlipidemia, unspecified hyperlipidemia type E78.5 Active 38343464 ALLERGIES No Information ENCOUNTERS Encounter Location Date Diagnosis [facility] [address] [id number] [place] [id number] January, [place] [address] [id number] [place] [id number] January, Hypotestosteronism E34.9 [facility] [address] [id number][place] [id number] January, Hypotestosteronism E34.9 [facility] [address] [facility] [id number] [place] [address] Dec, [facility] [address] [id number][place] [id number] Dec, Erectile dysfunction, unspecified erectile dysfunction type N52.9 [facility] [address] [facility] [id number] [place] [id number] Dec, [facility] [address]65[address] [address] Dec, Pre-operative cardiovascular examination Z01.810 ; PVD (peripheral vascular disease) I73.9 ; Anxiety F41.9 ; Rheumatoid arthritis, involving unspecified site, unspecified rheumatoid factor presence M06.9 ; Essential hypertension I10 ; Hyperlipidemia, unspecified hyperlipidemia type E78.5 and Hypotestosteronism E34.[address] [facility] [address] [id number], [place] [id number] Dec, [facility] [address] [id number], [place] [id number] Dec, Erectile dysfunction, unspecified erectile dysfunction type N52.9 and Hypotestosteronism E34.[address] [facility] [address] [id number][place] [id number] Dec, Hypotestosteronism E34.9 [facility] [address] [facility] [id number] [place] [id number] Nov, [facility] [address] [facility] [id number][place] [address]- [address] Nov, Hypotestosteronism E34.9 [facility] [address] [facility] [id number] [place]ILL[place] [id number] Nov, Pure hypercholesterolemia E78.00 and Primary osteoarthritis, unspecified site M19.[address] [facility] [address] [id number], [place] [id number] Nov, [facility] [address] [facility] [id number][place] [address] Nov, Tear of left glenoid labrum, subsequent encounter S43.432D [facility] [address] [id number][place] [id number] Nov, Hypotestosteronism E34.9 [facility] [address] [id number], [place] [id number] Nov, [facility] [address] [id number], [place] [id number] 14 Nov, 2017 [facility] [address] [id number], [place] [id number] Nov, Erectile dysfunction, unspecified erectile dysfunction type N52.9 [facility] [address] [id number], [place] [id number] Nov, Erectile dysfunction, unspecified erectile dysfunction type N52.9 [facility] [address] [id number], [place] [id number] Nov, Viral upper respiratory tract infection J06.9 and Erectile dysfunction, unspecified erectile dysfunction type N52.9 [facility] [address] [id number], [place] [id number] Oct, [facility] [address] [id number], [place] [id number] Oct, [facility] [address] [id number] [place] [id number] Oct, Fall on same level due to nature of surface, initial encounter W18.39XA and Erectile dysfunction, unspecified erectile dysfunction type N52.9 [facility] [address] [facility] [id number], [place] [id number]- [address]1 Sep, [facility] [address] [facility] [id number][place] [address]- [address]16 Sep, Tear of left rotator cuff, unspecified tear extent M75.102 and Primary osteoarthritis, 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 [place] [address] [place] [id number] [place] [address] 22651- 6902 Aug, Primary osteoarthritis, unspecified site M19.91 [facility] [id number] [place] [address] 39011- 8597 Jul, [place] [address] 36194- 6369 Jul, Primary osteoarthritis, unspecified site M19.91 [place] [address] [place] [id number] [place] [address] 51199- 5205 Jul, Lumbago with sciatica, right side M54.41 [place] [address] [place] [id number] [place] [address] 41104- 3621 Jul, Primary osteoarthritis, 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 and Injury of left rotator cuff, subsequent encounter S46.002D [place] [address] [place] [id number] [place] [address] 64716- 5141 Jul, [place] [address] [place] [id number] [place] [address] 90464- 1298 Jul, [place] [address] [place] [id number] [place] [address] 73880- 0605 Jul, [place] [address] [place] [id number] [place] [address] 00968- 3777 Jul, Lumbago with sciatica, left side M54.42 ; Lumbago with sciatica, right side M54.41 ; Left shoulder pain, unspecified chronicity M25.512 and Essential hypertension I10 [place] [address] [place] [id number] [place] [address] 77249- 5779 Jun, Lumbago with sciatica, left side M54.42 ; Lumbago with sciatica, right side M54.41 ; Left shoulder pain, unspecified chronicity M25.512 ; Essential hypertension I10 ; Heart murmur previously undiagnosed R01.1 ; Overweight E66.3 ; Anxiety F41.9 and Chronic prescription opiate use Z79.891 [place] [address] [place] [id number] [place] [address] 83707- 6355 Jun, Primary osteoarthritis, unspecified site M19.91 [facility] [address] [place] [id number] [place] [address] 61847- 9772 Jun, [place] [address] [place] [id number] [place] [address] 09320- 7254 May, Primary osteoarthritis, unspecified site M19.91 [place] [address] [place] [id number] [place] [address] 73599- 0184 May, Injury of left rotator cuff, subsequent encounter S46.002D [place] [address] [place] [id number] [place] [address] 11949- 7221 May, [place] [address] [place] [id number] [place] [address] 77500- 1781 Apr, [place] [address] [place] [id number] [place] [address] 39334- 8684 Apr, PVD (peripheral vascular disease) I73.9 ; Right leg claudication I73.9 ; Hyperlipidemia, unspecified hyperlipidemia type E78.5 ; Occlusion of femoropopliteal bypass graft, 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 and Essential hypertension I10 [place] [address] [place] [id number] [place] [address] 19709- 2737 Apr, Left shoulder pain, unspecified chronicity M25.512 [place] [address] [place] [address] [id number] [place] [address] 80762- 9738 Mar, Left shoulder pain, unspecified chronicity M25.512 [place] [address] [place] [id number] [place] [address] 45340- 0631 Mar, [place] [address] [place] [id number] [place] [address] 78204- 4071 Mar, [place] [address] 64172- 6180 Mar, Dupuytren's contracture of hand M72.0 ; Essential hypertension I10 ; Pure hypercholesterolemia E78.00 ; Primary osteoarthritis, unspecified site M19.91 ; PVD (peripheral vascular disease) I73.9 and Moderate single current episode of major depressive disorder F32.1 [facility] [address] [place] [address] [id number] [id number] Feb, Dental examination Z01.20 and Dental caries K02.9 [facility] [address] [place] [address] 02944- 3574 Feb, Primary osteoarthritis, unspecified site M19.91 [facility] [address] [id number] [place] [address] 97387- 9644 Feb, [place] [address] [place] [address] [id number] [place] [address] 14785- 2199 Feb, [facility] [address] [id number] [place] [address] 65389- 7542 Nov, [facility] [address] [id number] [place] [address] 33463- 5601 Nov, Dupuytren's contracture of hand M72.0 ; Pure hypercholesterolemia E78.00 ; Essential hypertension I10 ; PVD (peripheral vascular disease) I73.9 ; Primary osteoarthritis, unspecified site M19.91 and Rheumatoid arthritis, involving unspecified site, unspecified rheumatoid factor presence M06.9 [facility] [address] [place] [address] 18325- 7499 Nov, IMMUNIZATIONS No Known Immunizations SOCIAL HISTORY Never Assessed REASON FOR VISIT Hydrocodone Refill PLAN OF CARE VITAL SIGNS MEDICATIONS Medication Instructions Dosage Frequency Start Date End Date Duration Status Hydrocodone-Acetaminophen 5-325 MG Orally 3 times a day 1 tablet as needed 8h Aug, Sep, 28 days Active RESULTS No Results PROCEDURES No Known procedures INSTRUCTIONS MEDICATIONS ADMINISTERED No Known Medications MEDICAL (GENERAL) HISTORY Type Description Date Medical History dupuytren's contracture-hand bilateral Medical History hypertension Medical History hyperlipidemia Medical History Arthritis Medical History peripheral vascular disease Medical History rheumatoid arthritis Surgical History cervical fusion C3-C7 -[facility] 05/2015 Surgical History dupuytren's contracture-bilateral hands Surgical History Artery bypass in right leg Surgical History Occipital bone surgery right side Surgical History surgery near right eye Hospitalization History Surgery(s) only
--- OUTSIDE RECORDS SUMMARY | 2018-03-03 20:26 | XMS REPORT ---
Author Author BRIAN AMIN Organization [facility] Address [address] [place] [address] Care Team Providers Care Furnace Attendant Name Role Phone BRIAN AMIN Unavailable PROBLEMS Type Condition ICD9-CM Code [id number] Code Onset Dates Condition Status SNOMED Code Problem Primary osteoarthritis, 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 Active 15130269 Problem Lumbago with sciatica, left side M54.42 Active 974732721 Problem Anxiety F41.9 Active 73499307 Problem Hypotestosteronism E34.9 Active 8128444078053 Problem Erectile dysfunction, unspecified erectile dysfunction type N52.9 Active 633921506 Problem Chronic prescription opiate use Z79.891 Active 402466312 Problem Lumbago with sciatica, right side M54.41 Active 908807171427208 Problem Tear of left rotator cuff, unspecified tear extent M75.102 Active 3266358 Problem Left shoulder pain, unspecified chronicity M25.512 Active 77244132 Problem Pure hypercholesterolemia E78.00 Active 466936912 Problem Primary osteoarthritis, unspecified site M19.91 Active 325027876 Problem Dupuytren's contracture of hand M72.0 Active 424091225 Problem PVD (peripheral vascular disease) I73.9 Active 164482225 Problem Moderate single current episode of major depressive disorder F32.1 Active 74663794 Problem Rheumatoid arthritis, involving unspecified site, unspecified rheumatoid factor presence M06.9 Active 91083672 Problem Right leg claudication I73.9 Active 467815485 Problem Essential hypertension I10 Active 95047913 Problem Hyperlipidemia, unspecified hyperlipidemia type E78.5 Active 80951655 ALLERGIES No Information ENCOUNTERS Encounter Location Date Diagnosis [facility] [address] [id number] [place] [id number] Dec, [facility] [address] [id number] [place] [id number] Dec, Erectile dysfunction, unspecified erectile dysfunction type N52.9 [facility] [id number] [id number] Dec, [facility] [place] [id number] [id number] Dec, Pre-operative cardiovascular examination Z01.810 ; PVD (peripheral vascular disease) I73.9 ; Anxiety F41.9 ; Rheumatoid arthritis, involving unspecified site, unspecified rheumatoid factor presence M06.9 ; Essential hypertension I10 ; Hyperlipidemia, unspecified hyperlipidemia type E78.5 and Hypotestosteronism E34.[address] [facility] [address] [id number] [place] [id number] Dec, [facility] [address] [id number] [place] [id number] Dec, Erectile dysfunction, unspecified erectile dysfunction type N52.9 and Hypotestosteronism E34.[address] [facility] [address] [id number] [place] [id number] Dec, Hypotestosteronism E34.9 [facility] [address] [id number], [place] [id number] Nov, [facility] [address] [address] Nov, Hypotestosteronism E34.9 [facility] [address] [id number], [place] [id number] Nov, Pure hypercholesterolemia E78.00 and Primary osteoarthritis, unspecified site M19.[address] [facility] [address] [id number] [place] [id number] Nov, [facility] [address] [facility] [id number], [place] [address] Nov, Tear of left glenoid labrum, subsequent encounter S43.432D [facility] [address] [id number] [place] [id number] Nov, Hypotestosteronism E34.[address] [facility] [address] [address] [id number] [place] [id number] 15 Nov, 2017 [facility] [address] [id number] [place] [address] 14 Nov, [address] [facility] [address] [id number] [place] [address] Nov, Erectile dysfunction, unspecified erectile dysfunction type N52.[address] [facility] [address] [id number] [place] [id number] Nov, Erectile dysfunction, unspecified erectile dysfunction type N52.9 [facility] [address] [id number] [place] [address] Nov, Viral upper respiratory tract infection J06.9 and Erectile dysfunction, unspecified erectile dysfunction type N52.9 [facility] [address] [id number] [place] [id number] Oct, [facility] [address] [id number] [place] [id number] Oct, [facility] [address] [id number] [place] [id number] Oct, Fall on same level due to nature of surface, initial encounter W18.39XA and Erectile dysfunction, unspecified erectile dysfunction type N52.9 [place] [address]65100[place], [place] [address] Sep, [place] [address] [place] [id number] [place] [address] 74210- 1106 Sep, Tear of left rotator cuff, unspecified tear extent M75.102 and Primary osteoarthritis, 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 [facility] [id number] [place] [address] 66414- 6443 Aug, Primary osteoarthritis, unspecified site M19.91 [facility] [id number] [place] [address] 79831- 1184 Jul, [facility] [id number] [place] [address] 61221- 0725 Jul, Primary osteoarthritis, unspecified site M19.91 [place] [address] [place] [id number] [place] [address] 25186- 6861 Jul, Lumbago with sciatica, right side M54.41 [facility] [id number] [place] [address] 25973- 8058 Jul, Primary osteoarthritis, 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 and Injury of left rotator cuff, subsequent encounter S46.002D [place] [address] [place] [id number] [place] [address] 82831- 7007 Jul, [place] [address] [address] Jul, [place] [address] [place] [id number] [place] [address] 09184- 2079 Jul, [place] [address] 9[address]28- 0064 Jul, Lumbago with sciatica, left side M54.42 ; Lumbago with sciatica, right side M54.41 ; Left shoulder pain, unspecified chronicity M25.512 and Essential hypertension I10 [place] [address] [place] [id number] [place] [address] 74921- 8812 Jun, Lumbago with sciatica, left side M54.42 ; Lumbago with sciatica, right side M54.41 ; Left shoulder pain, unspecified chronicity M25.512 ; Essential hypertension I10 ; Heart murmur previously undiagnosed R01.1 ; Overweight E66.3 ; Anxiety F41.9 and Chronic prescription opiate use Z79.891 [place] [address] [place] [id number] [place] [address] 01502- 0212 Jun, Primary osteoarthritis, unspecified site M19.91 [place] [address] [place] [id number] [place] [address] 52068- 7290 Jun, [place] [address] [place] [id number] [place] [address] 30325- 5512 May, Primary osteoarthritis, unspecified site M19.91 [place] [address] [place] [address] 52523- 0543 May, Injury of left rotator cuff, subsequent encounter S46.002D [place] [address] [place] [id number] [place] [address] 28239- 2989 May, [place] [address] [place] [address] [id number] [place] [address] 74473- 5074 Apr, [place] [address] [place] [address] [id number] [place] [address] 21648- 3164 Apr, PVD (peripheral vascular disease) I73.9 ; Right leg claudication I73.9 ; Hyperlipidemia, unspecified hyperlipidemia type E78.5 ; Occlusion of femoropopliteal bypass graft, 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 and Essential hypertension I10 [place] [address] [place] [id number] [place] [address] 15890- 3274 Apr, Left shoulder pain, unspecified chronicity M25.512 [place] [address] [place] [id number] [place] [address] 59400- 6778 Mar, Left shoulder pain, unspecified chronicity M25.512 [place] [address] [place] [id number] [place] [address] 50843- 5251 Mar, [place] [address] [place] [address] 98169- 6720 Mar, [place] [address] [place] [id number] [place] [address] 76219- 8676 Mar, Dupuytren's contracture of hand M72.0 ; Essential hypertension I10 ; Pure hypercholesterolemia E78.00 ; Primary osteoarthritis, unspecified site M19.91 ; PVD (peripheral vascular disease) I73.9 and Moderate single current episode of major depressive disorder F32.1 [facility] [address] [id number][place] [id number] Feb, Dental examination Z01.20 and Dental caries K02.9 [place] [address] [place] [id number], [place] [address] Feb, Primary osteoarthritis, unspecified site M19.91 [place] [address], [place] [address] 8[address] Feb, [place] [address]100[place], [place] [address]- 5231 Feb, [place] [address], [place] [address] 12[address] Nov, [place] [address], [place] [address] 8[address] Nov, Dupuytren's contracture of hand M72.0 ; Pure hypercholesterolemia E78.00 ; Essential hypertension I10 ; PVD (peripheral vascular disease) I73.9 ; Primary osteoarthritis, unspecified site M19.91 and Rheumatoid arthritis, involving unspecified site, unspecified rheumatoid factor presence M06.9 [place] [address], [place] [address] Nov, IMMUNIZATIONS No Known Immunizations SOCIAL HISTORY Never Assessed REASON FOR VISIT LVM PLAN OF CARE VITAL SIGNS MEDICATIONS Medication Instructions Dosage Frequency Start Date End Date Duration Status Hydrocodone-Acetaminophen 5-325 MG Orally 3 times a day 1 tablet as needed 8h Jun, Jun, 15 days Active RESULTS No Results PROCEDURES No Known procedures INSTRUCTIONS MEDICATIONS ADMINISTERED No Known Medications MEDICAL (GENERAL) HISTORY Type Description Date Medical History dupuytren's contracture-hand bilateral Medical History hypertension Medical History hyperlipidemia Medical History Arthritis Medical History peripheral vascular disease Medical History rheumatoid arthritis Surgical History cervical fusion [facility]C7 [facility] 05/2015 Surgical History dupuytren's contracture-bilateral hands Surgical History Artery bypass in right leg Surgical History Occipital bone surgery right side Surgical History surgery near right eye Hospitalization History Surgery(s) only
--- OUTSIDE RECORDS SUMMARY | 2018-03-03 20:26 | XMS REPORT ---
Author Author SHASHANK LUNDBERG [facility] Address [address] [place] [address] Care Team Providers Care Tool And Die Maker Name Role Phone SHASHANK LUNDBERG Unavailable PROBLEMS Type Condition ICD9-CM Code MUZ22-BK Code Onset Dates Condition Status SNOMED Code Problem Primary osteoarthritis, 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 Active 76954330 Problem Lumbago with sciatica, left side M54.42 Active 229910287 Problem Anxiety F41.9 Active 52934593 Problem Hypotestosteronism E34.9 Active 6774978372094 Problem Erectile dysfunction, unspecified erectile dysfunction type N52.9 Active 269783013 Problem Chronic prescription opiate use Z79.891 Active 714819484 Problem Lumbago with sciatica, right side M54.41 Active 892847118549876 Problem Tear of left rotator cuff, unspecified tear extent M75.102 Active 1602717 Problem Left shoulder pain, unspecified chronicity M25.512 Active 37719672 Problem Pure hypercholesterolemia E78.00 Active 739287330 Problem Primary osteoarthritis, unspecified site M19.91 Active 430679782 Problem Dupuytren's contracture of hand M72.0 Active 413653407 Problem PVD (peripheral vascular disease) I73.9 Active 282091581 Problem Moderate single current episode of major depressive disorder F32.1 Active 58052697 Problem Rheumatoid arthritis, involving unspecified site, unspecified rheumatoid factor presence M06.9 Active 10269553 Problem Right leg claudication I73.9 Active 162900235 Problem Essential hypertension I10 Active 07024333 Problem Hyperlipidemia, unspecified hyperlipidemia type E78.5 Active 08688184 ALLERGIES No Information ENCOUNTERS Encounter Location Date Diagnosis [facility] [address] [id number] [place] [id number] January, [facility]] [address] [id number] [place] [id number] January, Hypotestosteronism E34.[address] [facility] [address] [id number] [place] [id number] January, Hypotestosteronism E34.9 [facility] [address] [facility] [id number] [id number] Dec, [facility] [address] [id number] [place] [id number] Dec, Erectile dysfunction, unspecified erectile dysfunction type N52.9 [facility] [address] [facility] [id number][place] [id number] Dec, [facility] [address] [address] Dec, Pre-operative cardiovascular examination Z01.810 ; PVD (peripheral vascular disease) I73.9 ; Anxiety F41.9 ; Rheumatoid arthritis, involving unspecified site, unspecified rheumatoid factor presence M06.9 ; Essential hypertension I10 ; Hyperlipidemia, unspecified hyperlipidemia type E78.5 and Hypotestosteronism E34.[address] [facility] [address] [id number] [place]ILL[place] [id number] Dec, [facility] [address] [id number] [place] [address] Dec, Erectile dysfunction, unspecified erectile dysfunction type N52.9 and Hypotestosteronism E34.[address] [facility] [address] [id number] [place]ILL[place] 196922363 Dec, Hypotestosteronism E34.[address] [facility] [address] [id number], [place] [id number] Nov, [facility] [address] [facility] [id number][place] [address]- [address]10 Nov, Hypotestosteronism E34.9 [facility] [address] [id number], [place] [id number] Nov, Pure hypercholesterolemia E78.00 and Primary osteoarthritis, unspecified site M19.[address] [facility] [address] [id number] [place]ILL[place] [id number] Nov, [facility] [address] [facility] [id number] [address]- [address]15 Nov, Tear of left glenoid labrum, subsequent encounter S43.432D [facility] [address] [id number] [place]ILLAGE[place] [id number] Nov, Hypotestosteronism E34.9 [facility] [address] [id number] VILL[place] [id number] 15 Nov, 2017 [facility] [address] [id number] [place]ILLAGE[place] [id number] 14 Nov, [address] [facility] [address] [id number] [place] [address] Nov, Erectile dysfunction, unspecified erectile dysfunction type N52.9 [facility] [address] [id number] [place] [id number] Nov, Erectile dysfunction, unspecified erectile dysfunction type N52.9 [facility] [address] [id number] VILL[place] [id number] Nov, Viral upper respiratory tract infection J06.9 and Erectile dysfunction, unspecified erectile dysfunction type N52.9 [facility] [address] [id number] VILLAGE[place] [id number] Oct, [facility] [place] [address] [facility] [address] [id number] [place] [id number] Oct, [facility] [id number] [place]ILL[place] [address] Oct, Fall on same level due to nature of surface, initial encounter W18.39XA and Erectile dysfunction, unspecified erectile dysfunction type N52.9 [facility] [address] [facility] [id number], [place] 54348420- 9636 Sep, [facility] [address] [facility] [id number] [address]- 7219 Sep, Tear of left rotator cuff, unspecified tear extent M75.102 and Primary osteoarthritis, 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 [place] [address] [id number] [place] [address] 30475- 5722 Aug, Primary osteoarthritis, unspecified site M19.91 [facility] [id number] [place] [address] 86167- 8365 Jul, [place] [address] [place] [id number] [place] [address] 26289- 6028 Jul, Primary osteoarthritis, unspecified site M19.91 [facility] [address] [id number] [place] [address] 64927- 8487 Jul, Lumbago with sciatica, right side M54.41 [place] [address] [address] [place] [address] 46705- 2116 Jul, Primary osteoarthritis, 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 and Injury of left rotator cuff, subsequent encounter S46.002D [place] [address] [place] [address] [address] [place] [address] 35511- 7898 Jul, [place] [address] [place] [address] [place] [address] 44481- 0177 Jul, [place] [address] [place] [address] [place] [address] 07348- 9348 Jul, [place] [address] [place] [address] [place] [address] 10900- 2001 Jul, Lumbago with sciatica, left side M54.42 ; Lumbago with sciatica, right side M54.41 ; Left shoulder pain, unspecified chronicity M25.512 and Essential hypertension I10 [place] [address] [place] [address] 09828- 2611 Jun, Lumbago with sciatica, left side M54.42 ; Lumbago with sciatica, right side M54.41 ; Left shoulder pain, unspecified chronicity M25.512 ; Essential hypertension I10 ; Heart murmur previously undiagnosed R01.1 ; Overweight E66.3 ; Anxiety F41.9 and Chronic prescription opiate use Z79.891 [place] [address] [place] [address] 20716- 2456 Jun, Primary osteoarthritis, unspecified site M19.91 [facility] [address] [place] [address] 10084- 2590 Jun, [place] [address] [place] [address] [place] [address] 51429- 7363 May, Primary osteoarthritis, unspecified site M19.91 [place] [address] [address] [place] [address] 55661- 2237 May, Injury of left rotator cuff, subsequent encounter S46.002D [place] [address] [address] [place] [address] 98905- 4478 May, [place] [address] [place] [id number] [place] [address] 10764- 0916 Apr, [place] [address] [place] [address] [place] [address] 78639- 3635 Apr, PVD (peripheral vascular disease) I73.9 ; Right leg claudication I73.9 ; Hyperlipidemia, unspecified hyperlipidemia type E78.5 ; Occlusion of femoropopliteal bypass graft, 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 and Essential hypertension I10 [place] [address] [address] [place] [address] 19239- 1067 Apr, Left shoulder pain, unspecified chronicity M25.512 [place] [address] [place] [address] [place] [address] 37279- 2089 Mar, Left shoulder pain, unspecified chronicity M25.512 [place] [address] [place] [address] [place] [address] 18501- 5030 Mar, [place] [address] [place] [id number] [place] [address] 28531- 6922 Mar, [place] [address] [place] [id number] [place] [address] 63962- 4926 Mar, Dupuytren's contracture of hand M72.0 ; Essential hypertension I10 ; Pure hypercholesterolemia E78.00 ; Primary osteoarthritis, unspecified site M19.91 ; PVD (peripheral vascular disease) I73.9 and Moderate single current episode of major depressive disorder F32.1 [facility] [address] [id number] [address] Feb, Dental examination Z01.20 and Dental caries K02.9 [facility] [address] [id number] [place] [address] 96365- 1164 Feb, Primary osteoarthritis, unspecified site M19.91 [place] [address] [place] [id number] [place] [address] 66761- 5379 Feb, [place] [address] [place] [id number] [place] [address] 34275- 2489 Feb, [facility] [address] [id number] [place] [address] 12312- 8608 Nov, [facility] [id number] [place] [address] 12164- 4322 Nov, Dupuytren's contracture of hand M72.0 ; Pure hypercholesterolemia E78.00 ; Essential hypertension I10 ; PVD (peripheral vascular disease) I73.9 ; Primary osteoarthritis, unspecified site M19.91 and Rheumatoid arthritis, involving unspecified site, unspecified rheumatoid factor presence M06.9 [place] [address] [id number] [place] [address] 19496- 2412 Nov, IMMUNIZATIONS No Known Immunizations SOCIAL HISTORY Never Assessed REASON FOR VISIT 8 wk f/u lt shoulder rotator cuff. Consult Shashank Jasmine RT(R) PLAN OF CARE Activity Details Follow Up 2 Months Reason: VITAL SIGNS Height 69 in 2017-08-04 Blood pressure systolic 158 mmHg 2017-08-04 Blood pressure diastolic 96 mmHg 2017-08-04 MEDICATIONS Unknown Medications RESULTS No Results PROCEDURES Procedure Date Ordered Result Body Site DRAIN/INJECT, JOINT/BURSA Aug 04, 2017 DEPO MEDROL 80 MG/ML Aug 04, 2017 INSTRUCTIONS MEDICATIONS ADMINISTERED No Known Medications MEDICAL (GENERAL) HISTORY Type Description Date Medical History dupuytren's contracture-hand bilateral Medical History hypertension Medical History hyperlipidemia Medical History Arthritis Medical History peripheral vascular disease Medical History rheumatoid arthritis Surgical History cervical fusion C3-C7 -[facility] 05/2015 Surgical History dupuytren's contracture-bilateral hands Surgical History Artery bypass in right leg Surgical History Occipital bone surgery right side Surgical History surgery near right eye Hospitalization History Surgery(s) only
--- OUTSIDE RECORDS SUMMARY | 2018-03-03 20:26 | XMS REPORT ---
Author Author SHASHANK LUNDBERG [facility] Address [address] [place] [address] Care Team Providers Care Night Auditor Name Role Phone SHASHANK LUNDBERG Unavailable PROBLEMS Type Condition ICD9-CM Code XVB52-DS Code Onset Dates Condition Status SNOMED Code Problem Primary osteoarthritis, 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 Active 14861743 Problem Lumbago with sciatica, left side M54.42 Active 369383915 Problem Anxiety F41.9 Active 59492147 Problem Hypotestosteronism E34.9 Active 2406224875285 Problem Erectile dysfunction, unspecified erectile dysfunction type N52.9 Active 196780850 Problem Chronic prescription opiate use Z79.891 Active 657693266 Problem Lumbago with sciatica, right side M54.41 Active 037260342450379 Problem Tear of left rotator cuff, unspecified tear extent M75.102 Active 2301922 Problem Left shoulder pain, unspecified chronicity M25.512 Active 62421039 Problem Pure hypercholesterolemia E78.00 Active 583118384 Problem Primary osteoarthritis, unspecified site M19.91 Active 071640406 Problem Dupuytren's contracture of hand M72.0 Active 898515304 Problem PVD (peripheral vascular disease) I73.9 Active 219548080 Problem Moderate single current episode of major depressive disorder F32.1 Active 16086301 Problem Rheumatoid arthritis, involving unspecified site, unspecified rheumatoid factor presence M06.9 Active 46710620 Problem Right leg claudication I73.9 Active 242965218 Problem Essential hypertension I10 Active 26796432 Problem Hyperlipidemia, unspecified hyperlipidemia type E78.5 Active 58729963 ALLERGIES No Information ENCOUNTERS Encounter Location Date Diagnosis [facility] [address] [id number] [place] [id number] Dec, [facility] [address] [id number] [place] [id number] Dec, Erectile dysfunction, unspecified erectile dysfunction type N52.9 [facility] [address] [facility] [id number] [place] [id number] Dec, [facility] [place] [id number] [id number] Dec, Pre-operative cardiovascular examination Z01.810 ; PVD (peripheral vascular disease) I73.9 ; Anxiety F41.9 ; Rheumatoid arthritis, involving unspecified site, unspecified rheumatoid factor presence M06.9 ; Essential hypertension I10 ; Hyperlipidemia, unspecified hyperlipidemia type E78.5 and Hypotestosteronism E34.[address] [facility] [address] [id number] [place] [id number] Dec, [facility] [address] [id number][place] [address] Dec, Erectile dysfunction, unspecified erectile dysfunction type N52.9 and Hypotestosteronism E34.[address] [facility] [address] [id number][place] [id number] Dec, Hypotestosteronism E34.9 [facility] [address] [id number] [place] [id number] Nov, [facility] [address]100[place] [address] Nov, Hypotestosteronism E34.9 [facility] [address] [id number] [place] [id number] Nov, Pure hypercholesterolemia E78.00 and Primary osteoarthritis, unspecified site M19.[address] [facility] [address] [address] [id number] [place] [id number] Nov, [facility] [address] [facility] [id number], [place] [address] Nov, Tear of left glenoid labrum, subsequent encounter S43.432D [facility] [address] [id number], [place] [address] Nov, Hypotestosteronism E34.[address] [facility] [address] [id number], [place] [id number] 15 Nov, 2017 [facility] [address] [id number] [place] [id number] 14 Nov, [address] [facility] [address] [address] [id number] [place] [id number] Nov, Erectile dysfunction, unspecified erectile dysfunction type N52.[address] [facility] [address] [id number], [place] [id number] Nov, Erectile dysfunction, unspecified erectile dysfunction type N52.9 [facility] [address] [id number], [place] [id number] Nov, Viral upper respiratory tract infection J06.9 and Erectile dysfunction, unspecified erectile dysfunction type N52.9 [facility] [address] [id number], [place] [id number] Oct, [facility] [address] [id number][place] [id number] Oct, [facility] [address] [id number], [place] [id number] Oct, Fall on same level due to nature of surface, initial encounter W18.39XA and Erectile dysfunction, unspecified erectile dysfunction type N52.9 [place] [address]65100[place], [place] [address] Sep, [place] [address] [place] [address] [id number] [place] [address]- 9014 Sep, Tear of left rotator cuff, unspecified tear extent M75.102 and Primary osteoarthritis, 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 [facility] [id number] [place] [address] 53103- 9914 Aug, Primary osteoarthritis, unspecified site M19.91 [facility] [id number] [place] [address] 59072- 5836 Jul, [facility] [id number] [place] [address] 85469- 3746 Jul, Primary osteoarthritis, unspecified site M19.91 [place] [address] [place] [id number] [place] [address] 97339- 3570 Jul, Lumbago with sciatica, right side M54.41 [facility] [id number] [place] [address] 12249- 7954 Jul, Primary osteoarthritis, 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 and Injury of left rotator cuff, subsequent encounter S46.002D [place] [id number] [place] [address] 86193- 4917 Jul, [place] [address] [address]- [address] Jul, [place] [address] [address] [id number] [place] [address] 23343- 9231 Jul, [place] [address] [address]- 88[address] Jul, Lumbago with sciatica, left side M54.42 ; Lumbago with sciatica, right side M54.41 ; Left shoulder pain, unspecified chronicity M25.512 and Essential hypertension I10 [place] [id number] [place] [address] 77596- 8923 Jun, Lumbago with sciatica, left side M54.42 ; Lumbago with sciatica, right side M54.41 ; Left shoulder pain, unspecified chronicity M25.512 ; Essential hypertension I10 ; Heart murmur previously undiagnosed R01.1 ; Overweight E66.3 ; Anxiety F41.9 and Chronic prescription opiate use Z79.891 [place] [address] [address] [address] [place] [address] 53117- 7562 Jun, Primary osteoarthritis, unspecified site M19.91 [place] [address] [address] [address] [place] [address] 24327- 5019 Jun, [place] [address] [place] [address] [id number] [place] [address] 78902- 4482 May, Primary osteoarthritis, unspecified site M19.91 [place] [address] [place] [address] 45313- 1751 May, Injury of left rotator cuff, subsequent encounter S46.002D [place] [address] [address] [address] [place] [address] 44835- 1930 May, [place] [address] [address] [address] [place] [address] 74861- 2972 Apr, [place] [address] [address] [address] [place] [address] 16795- 4119 Apr, PVD (peripheral vascular disease) I73.9 ; Right leg claudication I73.9 ; Hyperlipidemia, unspecified hyperlipidemia type E78.5 ; Occlusion of femoropopliteal bypass graft, 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 and Essential hypertension I10 [place] [address] [address] [address] [place] [address] 69663- 0334 Apr, Left shoulder pain, unspecified chronicity M25.512 [place] [address] [address] [address] [place] [address] 84377- 7723 Mar, Left shoulder pain, unspecified chronicity M25.512 [place] [address] [address] [id number] [place] [address] 30829- 1845 Mar, [place] [address] [place] [address] 27896- 4091 Mar, [place] [address] [address] [id number] [place] [address] 90901- 2766 Mar, Dupuytren's contracture of hand M72.0 ; Essential hypertension I10 ; Pure hypercholesterolemia E78.00 ; Primary osteoarthritis, unspecified site M19.91 ; PVD (peripheral vascular disease) I73.9 and Moderate single current episode of major depressive disorder F32.1 [facility] [address] [id number][place] [id number] Feb, Dental examination Z01.20 and Dental caries K02.9 [place] [address] [place] [address] [id number], [place] [address] Feb, Primary osteoarthritis, unspecified site M19.91 [place] [address]100[place], [place] [address] Feb, [place] [address]100[place], [place] [address] 27[address] Feb, [place] [address]100[place], [place] [address] Nov, [place] [address]100[place], [place] [address] Nov, Dupuytren's contracture of hand M72.0 ; Pure hypercholesterolemia E78.00 ; Essential hypertension I10 ; PVD (peripheral vascular disease) I73.9 ; Primary osteoarthritis, unspecified site M19.91 and Rheumatoid arthritis, involving unspecified site, unspecified rheumatoid factor presence M06.9 [place] [address] [place] [address] [id number], [place] [address] Nov, IMMUNIZATIONS No Known Immunizations SOCIAL HISTORY Never Assessed REASON FOR VISIT shoulder pain-xray done. Consult Shashank Jackson RT(R) PLAN OF CARE Activity Details Follow Up prn Reason: VITAL SIGNS Height 69 in 2017-06-09 Blood pressure systolic 142 mmHg 2017-06-09 Blood pressure diastolic 88 mmHg 2017-06-09 MEDICATIONS Unknown Medications RESULTS No Results PROCEDURES Procedure Date Ordered Result Body Site DRAIN/INJECT, JOINT/BURSA Jun 09, 2017 DEPO MEDROL 80 MG/ML Jun 09, 2017 INSTRUCTIONS MEDICATIONS ADMINISTERED No Known Medications MEDICAL (GENERAL) HISTORY Type Description Date Medical History dupuytren's contracture-hand bilateral Medical History hypertension Medical History hyperlipidemia Medical History Arthritis Medical History peripheral vascular disease Medical History rheumatoid arthritis Surgical History cervical fusion C3-C7 -[facility] 05/2015 Surgical History dupuytren's contracture-bilateral hands Surgical History Artery bypass in right leg Surgical History Occipital bone surgery right side Surgical History surgery near right eye Hospitalization History Surgery(s) only
--- OUTSIDE RECORDS SUMMARY | 2018-03-03 20:27 | XMS REPORT ---
Author Author LIAM BROWN [facility] Address [address] [place] [address] Care Team Providers Care Hide Sorter Name Role Phone LIAM BROWN Unavailable PROBLEMS Type Condition ICD9-CM Code BUV07-JK Code Onset Dates Condition Status SNOMED Code Problem Primary osteoarthritis, 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 Active 29489240 Problem Lumbago with sciatica, left side M54.42 Active 454337301 Problem Anxiety F41.9 Active 38573025 Problem Hypotestosteronism E34.9 Active 0535751304679 Problem Erectile dysfunction, unspecified erectile dysfunction type N52.9 Active 409702278 Problem Chronic prescription opiate use Z79.891 Active 349272287 Problem Lumbago with sciatica, right side M54.41 Active 747491773550525 Problem Tear of left rotator cuff, unspecified tear extent M75.102 Active 6238427 Problem Left shoulder pain, unspecified chronicity M25.512 Active 72123186 Problem Pure hypercholesterolemia E78.00 Active 918849288 Problem Primary osteoarthritis, unspecified site M19.91 Active 780505477 Problem Dupuytren's contracture of hand M72.0 Active 979151178 Problem PVD (peripheral vascular disease) I73.9 Active 689257881 Problem Moderate single current episode of major depressive disorder F32.1 Active 07949933 Problem Rheumatoid arthritis, involving unspecified site, unspecified rheumatoid factor presence M06.9 Active 04268232 Problem Right leg claudication I73.9 Active 560772772 Problem Essential hypertension I10 Active 89827565 Problem Hyperlipidemia, unspecified hyperlipidemia type E78.5 Active 41054020 ALLERGIES No Information ENCOUNTERS Encounter Location Date Diagnosis [facility] [address] [id number] [place] [id number] Dec, Erectile dysfunction, unspecified erectile dysfunction type N52.9 [facility] [address] [id number] [id number] Dec, [facility] [address] [id number], [place] [address] Dec, Pre-operative cardiovascular examination Z01.810 ; PVD (peripheral vascular disease) I73.9 ; Anxiety F41.9 ; Rheumatoid arthritis, involving unspecified site, unspecified rheumatoid factor presence M06.9 ; Essential hypertension I10 ; Hyperlipidemia, unspecified hyperlipidemia type E78.5 and Hypotestosteronism E34.[address] [facility] [address] [id number] [place] [id number] Dec, [facility] [address] [id number] [place] [id number] Dec, Erectile dysfunction, unspecified erectile dysfunction type N52.9 and Hypotestosteronism E34.9 [facility] [address] [id number] [place] [address] Dec, Hypotestosteronism E34.9 [facility] [address] [id number], [place] [id number] Nov, [facility] [address] [place] [address] 72324- 3657 Nov, Hypotestosteronism E34.9 [facility] [address] [id number], [place] [address] Nov, Pure hypercholesterolemia E78.00 and Primary osteoarthritis, unspecified site M19.91 [facility] [address] [id number] [place]INGS[place] [id number] Nov, [facility] [address] [facility] [id number] [address]- 9416 Nov, Tear of left glenoid labrum, subsequent encounter S43.432D [facility] [address] [id number] [place]INGS[place] [id number] Nov, Hypotestosteronism E34.9 [facility] [address] [id number] [place] [id number] Nov, [facility] [address] [id number] [place] [id number] Nov, [facility] [address] [id number] [place] [id number] Nov, Erectile dysfunction, unspecified erectile dysfunction type N52.9 [facility] [address] [id number] [place] [id number] Nov, Erectile dysfunction, unspecified erectile dysfunction type N52.9 [facility] [address] [id number] SPRINGS[place] [id number] Nov, Viral upper respiratory tract infection J06.9 and Erectile dysfunction, unspecified erectile dysfunction type N52.9 [facility] [address] [id number] [place] [id number] Oct, [facility] [address] [id number] [place] [id number] Oct, [facility] [address] [id number] [place] [address] Oct, Fall on same level due to nature of surface, initial encounter W18.39XA and Erectile dysfunction, unspecified erectile dysfunction type N52.9 [facility] [address] [place] [address] 35918- 1440 Sep, [facility] [id number] [place] [address] 68351- 7233 Sep, Tear of left rotator cuff, unspecified tear extent M75.102 and Primary osteoarthritis, 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 [facility] [address] [place] [address] 52653- 7357 Aug, Primary osteoarthritis, unspecified site M19.91 [facility] [id number] [place] [address] 90022- 7278 Jul, [facility] [id number] [place] [address] 05152- 4975 Jul, Primary osteoarthritis, unspecified site M19.91 [place] [address] [id number] [address]- 6466 Jul, Lumbago with sciatica, right side M54.41 [place] [id number] [place] [address] 38307- 9919 Jul, Primary osteoarthritis, 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 and Injury of left rotator cuff, subsequent encounter S46.002D [place] [address] 57176- 2855 Jul, [place] [address] [id number] [place] [address] 57749- 5402 Jul, [place] [address] [id number] [place] [address] 02183- 7526 Jul, [place] [id number] [place] [address] 00738- 9240 Jul, Lumbago with sciatica, left side M54.42 ; Lumbago with sciatica, right side M54.41 ; Left shoulder pain, unspecified chronicity M25.512 and Essential hypertension I10 [place] [id number] [place] [address] 63630- 3388 Jun, Lumbago with sciatica, left side M54.42 ; Lumbago with sciatica, right side M54.41 ; Left shoulder pain, unspecified chronicity M25.512 ; Essential hypertension I10 ; Heart murmur previously undiagnosed R01.1 ; Overweight E66.3 ; Anxiety F41.9 and Chronic prescription opiate use Z79.891 [place] [id number] [place] [address] 67137- 0410 Jun, Primary osteoarthritis, unspecified site M19.91 [place] [address] [id number] [place] [address] 27750- 4580 Jun, [place] [address] [id number] [place] [address] 23362- 4717 May, Primary osteoarthritis, unspecified site M19.91 [place] [address] [id number] [place] [address] 62567- 9210 May, Injury of left rotator cuff, subsequent encounter S46.002D [place] [id number] [place] [address] 25973- 8752 May, [place] [id number] [place] [address] 86543- 5023 Apr, [place] [id number] [place] [address] 70171- 6312 Apr, PVD (peripheral vascular disease) I73.9 ; Right leg claudication I73.9 ; Hyperlipidemia, unspecified hyperlipidemia type E78.5 ; Occlusion of femoropopliteal bypass graft, 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 and Essential hypertension I10 [place] [id number] [place] [address] 30227- 6176 Apr, Left shoulder pain, unspecified chronicity M25.512 [place] [id number] [place] [address] 43335- 9923 Mar, Left shoulder pain, unspecified chronicity M25.512 [place] [id number] [place] [address] 99477- 2507 Mar, [place] [address] [id number] [place] [address] 62257- 3276 Mar, [place] [id number] [place] [address] 41861- 9531 Mar, Dupuytren's contracture of hand M72.0 ; Essential hypertension I10 ; Pure hypercholesterolemia E78.00 ; Primary osteoarthritis, unspecified site M19.91 ; PVD (peripheral vascular disease) I73.9 and Moderate single current episode of major depressive disorder F32.1 [facility] [address] [address] Feb, Dental examination Z01.20 and Dental caries K02.9 [facility] [id number] [place] [address] 64720- 1601 Feb, Primary osteoarthritis, unspecified site M19.91 [place] [address] [facility] [id number] [address]- 4313 Feb, [place] [address] [place] [address] [id number], [place] [address]- 0623 Feb, [place] [address] [id number], [place] [address]- 9467 Nov, [place] [address] [id number] [address]- 3602 Nov, Dupuytren's contracture of hand M72.0 ; Pure hypercholesterolemia E78.00 ; Essential hypertension I10 ; PVD (peripheral vascular disease) I73.9 ; Primary osteoarthritis, unspecified site M19.91 and Rheumatoid arthritis, involving unspecified site, unspecified rheumatoid factor presence M06.9 [place] [address] [id number] [address]- 8434 Nov, IMMUNIZATIONS No Known Immunizations SOCIAL HISTORY Never Assessed REASON FOR VISIT Tramadol- 06/01 PLAN OF CARE VITAL SIGNS MEDICATIONS Medication [...] arthritis Surgical History cervical fusion C3[facility]C7 -[facility] 05/2015 Surgical History dupuytren's contracture-bilateral hands Surgical History Artery bypass in right leg Surgical History Occipital bone surgery right side Surgical History surgery near right eye Hospitalization History Surgery(s) only
--- OUTSIDE RECORDS SUMMARY | 2018-03-03 20:27 | XMS REPORT | Continuity of Care Document ---
Author Author [facility] Organization [facility] Address Unknown Phone Unavailable Allergies Active Description Code Type Severity Reaction Onset Reported/Identified Relationship to Patient Clinical Status Yes niacin [id number] Drug Allergy Unknown N/A 03/16/2013 Medications There is no data. Problems Date Dx Coded Attending Type Code Diagnosis Diagnosed By 03/16/2013 NOREEN COLLADO MD, Ot 455.0 INT HEMORRHOID W/O COMPL 03/16/2013 NOREEN COLLADO MD, Ot 455.3 EXT HEMORRHOID W/O COMPL 03/16/2013 [...] I73.9 PERIPHERAL VASCULAR DISEASE, UNSPECIFIED 05/04/2017 DERIK BARRYP Ot I70.[address] [facility] ARTERIES OF EXTRM W INTRMT 05/04/2017 DERIK BARRY Ot I73.9 PERIPHERAL VASCULAR DISEASE, UNSPECIFIED 11/27/2017 CARLOS TINOCO MD Ot I10 ESSENTIAL (PRIMARY) HYPERTENSION 11/27/2017 CARLOS TINOCO MD Ot J06.9 ACUTE UPPER RESPIRATORY INFECTION, UNSPE 11/27/2017 CARLOS TINOCO MD Ot R05 COUGH 11/27/2017 CARLOS TINOCO MD Ot Z88.3 ALLERGY STATUS TO OTHER ANTI-INFECTIVE A 11/27/2017 CARLOS TINOCO MD Ot Z95.820 PERIPHERAL VASCULAR ANGIOPLASTY STATUS W 11/27/2017 CARLOS TINOCO MD Ot Z98.890 OTHER SPECIFIED POSTPROCEDURAL STATES 11/29/2017 CARLOS TINOCO MD Ot I10 ESSENTIAL (PRIMARY) HYPERTENSION 11/29/2017 CARLOS TINOCO MD Ot J06.9 ACUTE UPPER RESPIRATORY INFECTION, UNSPE 11/29/2017 CARLOS TINOCO MD Ot R05 COUGH 11/29/2017 CARLOS TINOCO MD Ot Z88.3 ALLERGY STATUS TO OTHER ANTI-INFECTIVE A 11/29/2017 CARLOS TINOCO MD Ot Z95.820 PERIPHERAL VASCULAR ANGIOPLASTY STATUS W 11/29/2017 CARLOS TINOCO MD Ot Z98.890 OTHER SPECIFIED POSTPROCEDURAL STATES Procedures There is no data. Results Test Result Range CBC With Differential/Platelet - 12/10/16 11:55 WBC 7.0 x10E3/uL 3.4-10.8 RBC 4.60 x10E6/uL 4.14-5.80 Hemoglobin 14.3 g/dL 12.6-17.7 Hematocrit 42.6 % 37.5-51.0 MCV 93 fL 79-97 MCH 31.1 pg 26.6-33.0 MCHC 33.6 g/dL 31.5-35.7 RDW 13.9 % 12.3-15.4 Platelets 240 x10E3/uL 150-379 Neutrophils 56 % Lymphs 33 % Monocytes 7 % Eos 3 % Basos 0 % Neutrophils (Absolute) 3.9 x10E3/uL 1.4-7.0 Lymphs (Absolute) 2.4 x10E3/uL 0.7-3.1 Monocytes(Absolute) 0.5 x10E3/uL 0.1-0.9 Eos (Absolute) 0.2 x10E3/uL 0.0-0.4 Baso (Absolute) 0.0 x10E3/uL 0.0-0.2 Immature Granulocytes 1 % Immature Grans (Abs) 0.1 x10E3/uL 0.0-0.1 Hematology Comments: Note: Comp. Metabolic Panel (14) - 12/10/16 11:55 Glucose, Serum 94 mg/dL 65-99 BUN 17 mg/dL 6-24 Creatinine, Serum 0.96 mg/dL 0.76-1.27 eGFR If NonAfricn Am 87 mL/min/1.73 >59 eGFR If Africn Am 100 mL/min/1.73 >59 BUN/Creatinine Ratio 18 9-20 Sodium, Serum 140 mmol/L 134-144 Potassium, Serum 4.7 mmol/L 3.5-5.2 Chloride, Serum 102 mmol/L 96-106 Carbon Dioxide, Total 21 mmol/L 18-29 Calcium, Serum 9.1 mg/dL 8.7-10.2 Protein, Total, Serum 6.9 g/dL 6.0-8.5 Albumin, Serum 4.2 g/dL 3.5-5.5 Globulin, Total 2.7 g/dL 1.5-4.5 A/G Ratio 1.6 1.2-2.2 Bilirubin, Total 0.4 mg/dL 0.0-1.2 Alkaline Phosphatase, S 84 IU/L 39-117 AST (SGOT) 26 IU/L 0-40 ALT (SGPT) 36 IU/L 0-44 Lipid Panel - 12/10/16 11:55 Cholesterol, Total 225 mg/dL 100-199 Triglycerides 378 mg/dL 0-149 HDL Cholesterol 36 mg/dL >39 VLDL Cholesterol Brett 76 mg/dL 5-40 LDL Cholesterol Calc 113 mg/dL 0-99 TSH - 12/10/16 11:55 TSH 1.430 uIU/mL 0.450-4.500 Rheumatoid Arthritis Factor - 12/10/16 11:55 RA Latex Turbid. <10.0 IU/mL 0.0-13.9 Uric Acid, Serum - 12/10/16 11:55 Uric Acid, Serum 6.6 mg/dL 3.7-8.6 Sedimentation Rate-Westergren - 12/10/16 11:55 Sedimentation Rate-Westergren 49 mm/hr 0-30 Antinuclear Antibodies, IFA - 12/10/16 11:55 Antinuclear Antibodies, IFA Negative PSA (FREE AND TOTAL) - 11/21/17 15:45 PSA, TOTAL 0.2 ng/mL < OR=4.0 PSA, FREE 0.1 ng/mL NRG PSA, % FREE 50 % (calc) >25 TESTOSTERONE, FREE AND TOTAL - 11/21/17 15:45 TESTOSTERONE, TOTAL, LC/MS/MS 206 ng/dL 250-1100 TESTOSTERONE, FREE 27.5 pg/mL 46.0-224.0 TESTOSTERONE,BIOAVAILABLE 55.3 ng/dL 110.0-575.0 SEX HORMONE BINDING GLOBULIN 30 nmol/L 22-77 ALBUMIN,SERUM 4.4 g/dL 3.6-5.1 TESTOSTERONE, FREE AND TOTAL - 11/25/17 08:33 TESTOSTERONE, TOTAL, LC/MS/MS 171 ng/dL 250-1100 TESTOSTERONE, FREE 23.9 pg/mL 46.0-224.0 TESTOSTERONE,BIOAVAILABLE 47.0 ng/dL 110.0-575.0 SEX HORMONE BINDING GLOBULIN 28 nmol/L 22-77 ALBUMIN,SERUM 4.3 g/dL 3.6-5.1 Complete blood count (CBC) with automated white blood cell (WBC) differential - 11/27/17 16:20 Blood leukocytes automated count (number/volume) 8.2 10*3/uL 4.3-11.0 Blood erythrocytes automated count (number/volume) 4.53 10*6/uL 4.35-5.85 Venous blood hemoglobin measurement (mass/volume) 14.3 g/dL 13.3-17.7 Blood hematocrit (volume fraction) 42 % 40-54 Automated erythrocyte mean corpuscular volume 93 [foz_us] 80-99 Automated erythrocyte mean corpuscular hemoglobin (mass per erythrocyte) 32 pg 25-34 Automated erythrocyte mean corpuscular hemoglobin concentration measurement ( mass/volume) 34 g/dL 32-36 Automated erythrocyte distribution width ratio 13.2 % 10.0-14.5 Automated blood platelet count (count/volume) 245 10*3/uL 130-400 Automated blood platelet mean volume measurement 10.5 [foz_us] 7.4-10.4 Automated blood neutrophils/100 leukocytes 63 % 42-75 Automated blood lymphocytes/100 leukocytes 27 % 12-44 Blood monocytes/100 leukocytes 9 % 0-12 Automated blood eosinophils/100 leukocytes 1 % 0-10 Automated blood basophils/100 leukocytes 0 % 0-10 Blood neutrophils automated count (number/volume) 5.1 10*3 1.8-7.8 Blood lymphocytes automated count (number/volume) 2.2 10*3 1.0-4.0 Blood monocytes automated count (number/volume) 0.8 10*3 0.0-1.0 Automated eosinophil count 0.1 10*3/uL 0.0-0.3 Automated blood basophil count (count/volume) 0.0 10*3/uL 0.0-0.1 Comprehensive metabolic panel - 11/27/17 16:20 Serum or plasma sodium measurement (moles/volume) 138 mmol/L 135-145 Serum or plasma potassium measurement (moles/volume) 4.1 mmol/L 3.6-5.0 Serum or plasma chloride measurement (moles/volume) 106 mmol/L 98-107 Carbon dioxide 23 mmol/L 21-32 Serum or plasma anion gap determination (moles/volume) 9 mmol/L 5-14 Serum or plasma urea nitrogen measurement (mass/volume) 19 mg/dL 7-18 Serum or plasma creatinine measurement (mass/volume) 0.99 mg/dL 0.60-1.30 Serum or plasma urea nitrogen/creatinine mass ratio 19 NRG Serum or plasma creatinine measurement with calculation of estimated glomerular filtration rate > NRG Serum or plasma glucose measurement (mass/volume) 119 mg/dL 70-105 Serum or plasma calcium measurement (mass/volume) 9.8 mg/dL 8.5-10.1 Serum or plasma total bilirubin measurement (mass/volume) 0.5 mg/dL 0.1-1.0 Serum or plasma alkaline phosphatase measurement (enzymatic activity/volume) 76 U/L 40-136 Serum or plasma aspartate aminotransferase measurement (enzymatic activity/ volume) 26 U/L 5-34 Serum or plasma alanine aminotransferase measurement (enzymatic activity/volume ) 35 U/L 0-55 Serum or plasma protein measurement (mass/volume) 7.4 g/dL 6.4-8.2 Serum or plasma albumin measurement (mass/volume) 4.2 g/dL 3.2-4.5 Serum or plasma troponin i.cardiac measurement (mass/volume) - 11/27/17 16:20 Serum or plasma troponin i.cardiac measurement (mass/volume) < ng/ mL <0.30 Encounters ACCT No. Visit Date/Time Discharge Status Pt. Type Provider Facility Loc./Unit Complaint [id number] 11/27/2017 15:56:00 11/27/2017 19:36:00 DIS Emergency ALEJANDRINA ANGUIANO, CARLOS Contreras [facility] ER SINUS DRAINAGE,COUGH, CONGESTION [id number] 07/28/2017 13:04:00 07/28/2017 23:59:59 CLS Outpatient SINDY LANDAVERDE DO [facility] RAD LOW BACK PAIN [id number] 05/03/2017 12:05:00 05/03/2017 23:59:59 CLS Outpatient DERIK BARRY [employer] [facility] RAD I73.9 [id number] 04/06/2017 14:58:00 04/06/2017 23:59:59 CLS Outpatient JUVE GASTELUM [employer] [facility] RAD PVD I73.9 [id number] 03/16/2013 09:40:00 03/16/2013 12:50:00 DIS Outpatient NOREEN COLLADO MD [facility] GERD; SCREENING [id number] 03/15/2013 08:06:00 03/15/2013 23:59:59 CLS Outpatient NOREEN COLLADO MD [facility] PREOP GERD; SCREENING [id number] 12/14/2016 07:05:00 Document Registration [id number] 02/20/2018 11:00:00 02/20/2018 23:59:59 CLS Outpatient SINDY LANDAVERDE CHCMARY JARA [id number] 11/25/2017 08:20:00 Document Registration [id number] 11/21/2017 16:20:00 Document Registration
[2018-03-03] MEDS ORDERED: LIDOCAINE 1% INJ 20 ML 20 ML VIAL ONE (20:50)
[2018-03-03] MEDS ORDERED: [UNRECOGNIZED DRUG - CODE] PO (20:53)
[2018-03-03] MEDS ORDERED: CEFU500T63 PO (20:53)
--- NOTE | 2018-03-03 20:53 | ED Cough/URI ---
General Chief Complaint: Cough/Cold/Flu Symptoms Stated Complaint: COLD SYMPTOMS Nursing Triage Note: PATIENT STATES THAT HE HAS HAD A SORE THROAT AND COUGH FOR OVER A WEEK. HE SAW HIS PCP ON TUESDAY THIS WEEK AND HAD A NEGATIVE STREP TEST. HE WAS GIVEN A OTC COUGH SUPPRESSENT BUT NO OTHER MEDS. PATIENT CONTINUES TO HAVE SORE THROAT, THICK YELLOW SPUTUM NAD STARTED HAVING PAIN IN HIS EARS APPROX 2 HOURS PRIOR TO ARRIVAL TO ER. Source: patient Exam Limitations: no limitations History of Present Illness Date Seen by Provider: Mar 03, 2018 Time Seen by Provider: 20:48 Initial Comments To ER with reports of a sore throat and a cough for over a week. He saw his primary care on Tuesday who believe this to be a viral syndrome and he was given Tessalon Perle prescription. He reports today that symptoms have worsened , he has a cough productive of yellow sputum, chills, persistent nasal secretions and sore throat. Timing/Duration: just prior to arrival Severity/Quality: productive cough Prior Episodes/Possible Cause: occasional episodes Associated Symptoms: cough, sore throat Allergies and Home Medications Allergies Coded Allergies: niacin (Unverified Allergy, 03/16/13) Home Medications Aspirin 325 Mg Tab, 325 MG PO DAILY, (Reported) Cefuroxime Axetil 500 Mg Tablet, 500 MG PO BID Prescribed by: ERIC NOVOA on 03/03/182052 Enalapril Maleate 10 Mg Tab, 10 MG GT DAILY, (Reported) Guaifenesin/Dextromethorphan 1 Each Tablet, 1 EACH PO Q4H PRN for COUGH Prescribed by: ERIC NOVOA on 03/03/182052 Pantoprazole Sodium 40 Mg Tablet.dr, 40 MG PO DAILY, (Reported) Sucralfate 1 Gm Tab, 1 GM PO ACHS PRN, (Reported) Patient Home Medication List Home Medication List Reviewed: Yes Review of Systems Constitutional: see HPI, chills EENTM: see HPI Respiratory: see HPI, cough Cardiovascular: no symptoms reported Genitourinary: no symptoms reported Musculoskeletal: no symptoms reported Skin: no symptoms reported Psychiatric/Neurological: No Symptoms Reported Hematologic/Lymphatic: No Symptoms Reported Immunological/Allergic: no symptoms reported Past Wpaqjdt-Bkwskt-Wjlwho Hx Patient Social History Alcohol Use: Denies Use Recreational Drug Use: No Smoking Status: Former Smoker 2nd Hand Smoke Exposure: No Recent Foreign Travel: No Contact w/Someone Who Travel: No Recent Infectious Disease Expo: No Recent Hopitalizations: No Physical Abuse: No Sexual Abuse: No Past Medical History Surgeries: Yes (STENTS IN RT LEG, BI LAT HANDS, RT KNEE) Eye Surgery, Orthopedic Respiratory: No Cardiac: Yes Hypertension Neurological: No Genitourinary: No Gastrointestinal: No Musculoskeletal: No Endocrine: No Cancer: No Nursing Suicide Risk Score: 0 Integumentary: No Physical Exam Vital Signs Vital Signs - First Documented 03/03/18 20:33 Temp 98.1 Pulse 97 Resp 18 B/P (MAP) 172/115 (134) Pulse Ox 95 O2 Delivery Room Air Capillary Refill : Less Than 3 Seconds General Appearance: WD/WN, no apparent distress Eyes: Bilateral Eye Normal Inspection, Bilateral Eye PERRL, Bilateral Eye EOMI HEENT: PERRL/EOMI, pharynx normal, TM abnormal (R) (right external ear canal is erythematous as is the tympanic membrane.) Respiratory: normal breath sounds, no respiratory distress, no accessory muscle use Gastrointestinal: normal bowel sounds, non tender, soft Extremities: normal range of motion, non-tender Neurologic/Psychiatric: alert, normal mood/affect, oriented x 3 Skin: normal color, warm/dry Progress/Results/Core Measures Suspected Sepsis Recent Fever Within 48 Hours: No Infection Criteria Present: Suspected New Infection New/Unexplained Altered Menta: No Sepsis Screen: No Definite Risk SIRS Temperature:98.1 Pulse: 97 Respiratory Rate: 18 Blood Pressure 172 /115 Mean: 134 Results/Orders My Orders Orders - ERIC NOVOA APRN Ceftriaxone Injection (Rocephin Injectio (03/03/18 21:00) Dexamethasone Injection (Decadron Inject (03/03/18 21:00) Lidocaine 1% Inj 50 Ml (Xylocaine 1% Inj (03/03/18 21:00) Chest Pa/Lat (2 View) (03/03/18 20:47) Lidocaine 1% Inj 20 Ml (Xylocaine 1% Inj (03/03/18 20:50) Medications Given in ED Current Medications Medications Dose Ordered Sig/Chris Route Start Time Stop Time Status Last Admin Dose Admin Ceftriaxone Sodium 1,000 mg ONCE ONCE IM 03/03/18 21:00 03/03/18 21:01 DC 03/03/18 20:57 1,000 MG Dexamethasone Sodium Phosphate 10 mg ONCE ONCE IM 03/03/18 21:00 03/03/18 21:01 DC 03/03/18 20:57 10 MG Lidocaine HCl 20 ml STK-MED ONCE .ROUTE 03/03/18 20:50 03/03/18 20:52 DC 03/03/18 20:58 20 ML Vital Signs/I&O 03/03/18 20:33 Temp 98.1 Pulse 97 Resp 18 B/P (MAP) 172/115 (134) Pulse Ox 95 O2 Delivery Room Air Capillary Refill : Less Than 3 Seconds Blood Pressure Mean: 134 Departure Impression Primary Impression: Upper respiratory infection Additional Impression: Bronchitis Disposition: HOME, SELF-CARE Condition: Stable Departure-Patient Inst. Decision time for Depature: 20:50 [facility] Primary Care Physician Patient Instructions: Acute Bronchitis, Adult (DC) Add. Discharge Instructions: 1. Medication as directed 2. Return to ER for any concerns 3. All discharge instructions reviewed with patient and/or family. Voiced understanding. Scripts Guaifenesin/Dextromethorphan (Guaifenesin-Dm 400-20 mg Cplt) 1 Each Tablet 1 EACH PO Q4H PRN for COUGH, #20 TAB Prov: ERIC NOVOA TEACHER COUNSELOR 03/03/18 Cefuroxime Axetil (Cefuroxime) 500 Mg Tablet 500 MG PO BID, #14 TAB Prov: ERIC NOVOA TEACHER COUNSELOR 03/03/18 ERIC NOVOA TEACHER COUNSELOR Mar 03, 2018 20:53
[2018-03-03] MEDS ORDERED: cefTRIAXone 1 GM (ROCEPHIN) VIAL IM ONE (21:00)
[2018-03-03] MEDS ORDERED: LIDOCAINE 1% INJ 50 ML (XYLOCAINE) VIAL IJ ONE (21:00)
[2018-03-03] MEDS ORDERED: DEXAMETHASONE 10 MG/ML (DECADRON) 1 ML VIAL IM ONE (21:00)
--- NOTE | 2018-03-03 21:16 | Diagnostic Imaging Report ---
INDICATION: Productive cough PA and lateral views of the chest are obtained. Comparison is made to the study of 11/27/2017. Heart size and pulmonary vascularity are within normal limits. There are several calcified nodules in the lungs indicating previous granulomatous disease. Surgical findings are noted in the cervical spine as well as within the left shoulder. No pneumothorax is detected. No other change seen. 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 Otherwise, no acute abnormality is identified. Dictated by: Dictated on workstation # [id number]
[2018-03-03 21:30] VITALS: BP 172/115
== END 2018-03-03 21:31 | disposition home or self-care (01) ==
LOC: EDUNIT# 20:18 → ER 20:20
DX: J06.9 Acute upper respiratory infection, unspecified (principal); J40 Bronchitis, not specified as acute or chronic; I10 Essential (primary) hypertension; Z88.8 Allergy status to other drugs, medicaments and biological substances; Z79.82 Long term (current) use of aspirin; Z87.891 Personal history of nicotine dependence
CPT/HCPCS: 71046; 96372

== ENCOUNTER → 2018-08-24 | Outpatient (CLI) | payer MEDICARE ==
[~2018-08-24] MED LIST changes: +CEFU500T63 PO; +[UNRECOGNIZED DRUG - CODE] PO
--- NOTE | 2018-08-24 19:33 | Diagnostic Imaging Report ---
EXAMINATION: Low-dose lung cancer screening exam. INDICATION: 72-tnel-ento smoking history. FINDINGS: Routine images of the thorax were obtained using the low-dose CT lung cancer screening protocol. There are no prior CT chest examinations available for comparison. The plain film examination of the chest performed on 03/03/2018 noted chronic pulmonary changes including several granulomas involving both lungs. There was no acute abnormality noted. On this exam, the granulomas are again evident in both lungs. There is no other parenchymal lung mass visualized. There is no sign of failure, pneumonia, or pleural effusion to indicate an acute abnormality. The heart size is at the upper limits of normal. Coronary artery calcifications are noted. The aorta is not abnormally dilated. There is no obvious mediastinal or hilar adenopathy. The thyroid gland was not well visualized as it is partially obscured by streak artifact related to the total shoulder prosthesis on the left. There is also orthopedic hardware overlying the lower cervical spine. There is increased density in both retroareolar regions. This does suggest gynecomastia. Clinical follow-up is recommended. The sections through the upper abdomen fail to show any evidence for an acute abnormality. The bone windows are unremarkable for a fracture or for a destructive lesion. IMPRESSION: 1. There are calcified granulomas in both lungs, but there is no other lung nodule identified. A follow-up CT low-dose lung cancer screening exam in one year will be recommended for further study. 2. There is no acute cardiopulmonary abnormality noted. 3. There is coronary artery disease. 4. Probable gynecomastia. Clinical follow-up is recommended. LUNG-RADS CATEGORY: 1 - Negative. No lung nodules. Continue annual screening with LDCT in 12 months. Dictated by: Dictated on workstation # [id number]
== END ==
LOC: RAD 13:03
PROVIDERS: ATTEND Nurse Practitioner Family
DX: Z12.2 Encounter for screening for malignant neoplasm of respiratory organs (principal); J84.10 Pulmonary fibrosis, unspecified; Z87.891 Personal history of nicotine dependence

== ENCOUNTER 2018-12-22 13:42 | Emergency (ER) | payer OTHER, MEDICARE ==
[~2018-12-22] VITALS: Ht 175.3 cm; Wt 110.2 kg
--- OUTSIDE RECORDS SUMMARY | 2018-12-22 13:48 | XMS REPORT ---
Author Author SINDY Blackwell Organization [facility] Address [address] [place] [address] Care Team Providers Care Supervisory Clerk Name Role Phone SINDY Blackwell Unavailable PROBLEMS Type Condition ICD9-CM Code RGF37-SN Code Onset Dates Condition Status SNOMED Code Problem Chronic prescription opiate use Z79.891 Active 170640802 Problem Tear of left rotator cuff, unspecified tear extent M75.102 Active 8988939 Problem Left shoulder pain, unspecified chronicity M25.512 Active 19105354 Problem Personal history of nicotine dependence Z87.891 Active 019207608 Problem Essential hypertension I10 Active 35196406 Problem Welcome to Medicare preventive visit Z00.00 Active 657992371 Problem Rheumatoid arthritis, involving unspecified site, unspecified rheumatoid factor presence M06.9 Active 65422283 Problem Dupuytren's contracture of hand M72.0 Active 648109174 Problem Hypotestosteronism E34.9 Active 1615946123246 Problem Erectile dysfunction, unspecified erectile dysfunction type N52.9 Active 603548392 Problem Claustrophobia F40.240 Active 32926207 Problem Hypogonadism in male E29.1 Active 48336810 Problem Pure hypercholesterolemia E78.00 Active 286482490 Problem Moderate single current episode of major depressive disorder F32.1 Active 46647103 Problem PVD (peripheral vascular disease) I73.9 Active 928038529 Problem Primary osteoarthritis, unspecified site M19.91 Active 217102971 Problem Primary osteoarthritis, 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 Active 58009614 Problem Anxiety F41.9 Active 40412786 Problem Right leg claudication I73.9 Active 263174066 Problem Lumbago with sciatica, left side M54.42 Active 866812497 Problem Hyperlipidemia, unspecified hyperlipidemia type E78.5 Active 04194173 Problem Lumbago with sciatica, right side M54.41 Active [id number] ALLERGIES No Information ENCOUNTERS Encounter Location Date Diagnosis [facility] [address] [id number] [id number] Sep, [facility] [address] [id number][place] [id number] Jul, [facility] [address] [id number][place] [id number] Jul, [facility] [address] [address] Jul, Hyperglycemia R73.9 [facility] [address] [facility] [address] [id number][place] [id number] Jul, [facility] [address] [facility] [id number][place] [id number] Jul, Hyperglycemia R73.9 and Pure hypercholesterolemia E78.00 [facility] [address] [id number] [address] Jul, Hyperlipidemia, unspecified hyperlipidemia type E78.5 [facility] [address] [facility] [id number][place] [id number] 15 Jul, 2018 Personal history of nicotine dependence Z87.891 [facility] [address] [facility] [address] [id number], [place] [id number] 13 Jul, 2018 Welcome to Medicare preventive visit Z00.00 ; Pure hypercholesterolemia E78.00 ; Hyperlipidemia, unspecified hyperlipidemia type E78.5 ; Personal history of nicotine dependence Z87.891 ; Rheumatoid arthritis, involving unspecified site, unspecified rheumatoid factor presence M06.9 and Encounter for immunization Z23 [facility] [address] [id number][place] [id number] Apr, [facility] [address] [id number][place] [address] Mar, Hypotestosteronism E34.9 [facility] [place] [address] [facility] [id number] [id number] Mar, Claustrophobia F40.[address] [facility] [address] [id number][place] [id number] 16 Mar, 2018 Hypotestosteronism E34.9 [facility] [address] [facility] [id number] [place] [address] 10 Mar, 2018 Encounter for pre-operative laboratory testing Z01.[address] [facility] [address] [id number][place] [id number] 10 Mar, 2018 Acute otitis externa of right ear, unspecified type H60.501 ; Hypotestosteronism E34.9 and Encounter for pre-operative laboratory testing Z01.812 [facility] [address] [id number], [place] [id number] Mar, [facility] [address] [id number][place] [id number] Mar, Hypogonadism in male E29.1 and Hypotestosteronism E34.[address] [facility] [address] [id number][place] [id number] Mar, Acute otitis externa of right ear, unspecified type H60.501 [facility] [address] [id number], [place] [id number] Mar, Hypotestosteronism E34.9 [facility] [address] [id number], [place] [id number] Feb, [facility] [place] [address] [facility] [id number][place] [id number] Feb, PVD (peripheral vascular disease) I73.9 ; Pure hypercholesterolemia E78.00 and Primary osteoarthritis, unspecified site M19.[address] [facility] [address] [id number], [place] [id number] Feb, Hypotestosteronism E34.[address] [facility] [address] [id number], [place] [id number] Feb, Upper respiratory infection, viral J06.[address] [facility] [address] [id number], [place] [id number] Feb, Hypotestosteronism E34.9 [facility] [place] [address] [facility] [id number][place] [id number] January, [facility] [address] [id number][place] [id number] January, Hypotestosteronism E34.9 [facility] [address] [id number], [place] [id number] January, Hypotestosteronism E34.9 [facility] [place] [address] [facility] [id number][place] [id number] Dec, [facility] [address] [facility] [address] [id number], [place] [id number] Dec, Erectile dysfunction, unspecified erectile dysfunction type N52.9 [facility] [place] [address] [id number][place] [id number] Dec, [facility] [place] [id number], [place] [address] Dec, Pre-operative cardiovascular examination Z01.810 ; PVD (peripheral vascular disease) I73.9 ; Anxiety F41.9 ; Rheumatoid arthritis, involving unspecified site, unspecified rheumatoid factor presence M06.9 ; Essential hypertension I10 ; Hyperlipidemia, unspecified hyperlipidemia type E78.5 and Hypotestosteronism E34.9 [facility] [address] [facility] [address] [id number], [place] [id number] Dec, [facility] [address] [id number], [place] [id number] Dec, Erectile dysfunction, unspecified erectile dysfunction type N52.9 and Hypotestosteronism E34.9 [facility] [address] [id number], [place] [id number] Dec, Hypotestosteronism E34.9 [facility] [place] [address] [facility] [id number], [place] [id number] Nov, [facility] [address]100[place] [address] Nov, Hypotestosteronism E34.9 [facility] [place] [address] [facility] [id number][place] [id number] Nov, Pure hypercholesterolemia E78.00 and Primary osteoarthritis, unspecified site M19.[address] [facility] [address] [id number] [place] [address] Nov, [facility] [address] [facility] [id number] [place] [address] Nov, Tear of left glenoid labrum, subsequent encounter S43.432D [facility] [address] [id number] [place] [id number] Nov, Hypotestosteronism E34.[address] [facility] [address] [id number], [place] [id number] Nov, [facility] [address] [id number], [place] [id number] Nov, [facility] [address] [id number], [place] [id number] Nov, Erectile dysfunction, unspecified erectile dysfunction type N52.[address] [facility] [address] [id number], [place] [id number] Nov, Erectile dysfunction, unspecified erectile dysfunction type N52.9 [facility] [address] [id number], [place] [id number] Nov, Viral upper respiratory tract infection J06.9 and Erectile dysfunction, unspecified erectile dysfunction type N52.[address] [facility] [address] [id number] [place] [id number] Oct, [facility] [address] [id number], [place] [id number] Oct, [facility] [address] [id number], [place] [id number] Oct, Fall on same level due to nature of surface, initial encounter W18.39XA and Erectile dysfunction, unspecified erectile dysfunction type N52.9 [place] [address] [address] Sep, [place] [address] [address] Sep, Tear of left rotator cuff, unspecified tear extent M75.102 and Primary osteoarthritis, 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 [place] [address] [address] Aug, Primary osteoarthritis, unspecified site M19.91 [place] [address] [address] Jul, [place] [address] [address] Jul, Primary osteoarthritis, unspecified site M19.91 [place] [address] [address] Jul, Lumbago with sciatica, right side M54.41 [place] [address] [address] Jul, Primary osteoarthritis, 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 and Injury of left rotator cuff, subsequent encounter S46.002D [place] [address] [address] Jul, [place] [address] [address] Jul, [place] [address] [address] Jul, [place] [address] [address] Jul, Lumbago with sciatica, left side M54.42 ; Lumbago with sciatica, right side M54.41 ; Left shoulder pain, unspecified chronicity M25.512 and Essential hypertension I10 [place] [address] [address] Jun, Lumbago with sciatica, left side M54.42 ; Lumbago with sciatica, right side M54.41 ; Left shoulder pain, unspecified chronicity M25.512 ; Essential hypertension I10 ; Heart murmur previously undiagnosed R01.1 ; Overweight E66.3 ; Anxiety F41.9 and Chronic prescription opiate use Z79.891 [place] [id number] [place] [address] Jun, Primary osteoarthritis, unspecified site M19.91 [place] [id number] [place] [address] Jun, [place] [address] [address] May, Primary osteoarthritis, unspecified site M19.91 [place] [id number] [place] [address] May, Injury of left rotator cuff, subsequent encounter S46.002D [place] [id number] [place] [address] May, [place] [id number] [place] [address] Apr, [place] [id number] [place] [address] Apr, PVD (peripheral vascular disease) I73.9 ; Right leg claudication I73.9 ; Hyperlipidemia, unspecified hyperlipidemia type E78.5 ; Occlusion of femoropopliteal bypass graft, 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 and Essential hypertension I10 [place] [id number] [place] [address] Apr, Left shoulder pain, unspecified chronicity M25.512 [place] [id number] [place] [address] Mar, Left shoulder pain, unspecified chronicity M25.512 [place] [id number] [place] [address] Mar, [facility] [id number] [place] [address] Mar, [facility] [id number] [place] [address] Mar, Dupuytren's contracture of hand M72.0 ; Essential hypertension I10 ; Pure hypercholesterolemia E78.00 ; Primary osteoarthritis, unspecified site M19.91 ; PVD (peripheral vascular disease) I73.9 and Moderate single current episode of major depressive disorder F32.1 [facility] [id number] [place] [id number] Feb, Dental examination Z01.20 and Dental caries K02.9 [place] [id number] [place] [address] Feb, Primary osteoarthritis, unspecified site M19.91 [place] [id number] [place] [address] Feb, [place] [id number] [place] [address] Feb, [facility] [id number] [place] [address]- [address] Nov, [place] [id number] [place] [address] Nov, Dupuytren's contracture of hand M72.0 ; Pure hypercholesterolemia E78.00 ; Essential hypertension I10 ; PVD (peripheral vascular disease) I73.9 ; Primary osteoarthritis, unspecified site M19.91 and Rheumatoid arthritis, involving unspecified site, unspecified rheumatoid factor presence M06.9 [facility] [id number] [place] [address]648 Nov, IMMUNIZATIONS No Known Immunizations SOCIAL HISTORY Never Assessed REASON FOR VISIT Lab results PLAN OF CARE VITAL SIGNS MEDICATIONS Unknown Medications RESULTS No Results PROCEDURES No Known procedures INSTRUCTIONS MEDICATIONS ADMINISTERED No Known Medications MEDICAL (GENERAL) HISTORY Type Description Date Medical History dupuytren's contracture-hand bilateral Medical History hypertension Medical History hyperlipidemia Medical History Arthritis Medical History peripheral vascular disease Medical History rheumatoid [id number]-rsossins [place] and Rheum factor 2016 Medical History left shoulder arthritis Medical History Pituitary Microadenoma Per Dr. Gandhi Consult Note 2018 Surgical History cervical fusion C3-C7 -[facility] 05/2015 Surgical History dupuytren's contracture-bilateral hands Surgical History Artery bypass in right leg Surgical History Occipital bone surgery right side Surgical History surgery near right eye Surgical History [place] Left shoulder replacement 01/13/2018 Surgical History colonoscopy 2013 Hospitalization History Surgery(s) only Hospitalization History [facility]- Cold Symptoms 03/03/2018
--- OUTSIDE RECORDS SUMMARY | 2018-12-22 13:48 | XMS REPORT ---
Author Author [facility] Address [address] [place] [address] Care Team Providers Care Digital Advertising Specialist Name Role Phone MARLIN GALVAN Unavailable PROBLEMS Type Condition ICD9-CM Code THV08-RT Code Onset Dates Condition Status SNOMED Code Problem Chronic prescription opiate use Z79.891 Active 208380268 Problem Tear of left rotator cuff, unspecified tear extent M75.102 Active 9080787 Problem Left shoulder pain, unspecified chronicity M25.512 Active 46903747 Problem Personal history of nicotine dependence Z87.891 Active 587201840 Problem Essential hypertension I10 Active 29403988 Problem Welcome to Medicare preventive visit Z00.00 Active 086762276 Problem Rheumatoid arthritis, involving unspecified site, unspecified rheumatoid factor presence M06.9 Active 45744545 Problem Dupuytren's contracture of hand M72.0 Active 260869382 Problem Hypotestosteronism E34.9 Active 5588169598532 Problem Erectile dysfunction, unspecified erectile dysfunction type N52.9 Active 348147336 Problem Claustrophobia F40.240 Active 47242413 Problem Hypogonadism in male E29.1 Active 67095518 Problem Pure hypercholesterolemia E78.00 Active 208908848 Problem Moderate single current episode of major depressive disorder F32.1 Active 99580012 Problem PVD (peripheral vascular disease) I73.9 Active 480005037 Problem Primary osteoarthritis, unspecified site M19.91 Active 066845588 Problem Primary osteoarthritis, 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 Active 30513117 Problem Anxiety F41.9 Active 52459978 Problem Right leg claudication I73.9 Active 013028799 Problem Lumbago with sciatica, left side M54.42 Active 688392127 Problem Hyperlipidemia, unspecified hyperlipidemia type E78.5 Active 92190249 Problem Lumbago with sciatica, right side M54.41 Active [id number] ALLERGIES No Information ENCOUNTERS Encounter Location Date Diagnosis [facility] [address] [id number] [id number] Sep, [facility] [address] [id number][place] [id number] Aug, [facility] [address] [id number][place] [id number] Jul, [facility] [address] [id number][place] [id number] Jul, [facility] [address] [facility] [id number], [place] [address] Jul, Hyperglycemia R73.9 [facility] [address] [id number][place] [id number] Jul, [facility] [address] [id number][place] [address] Jul, Hyperglycemia R73.9 and Pure hypercholesterolemia E78.00 [facility] [address] [id number] [address] Jul, Hyperlipidemia, unspecified hyperlipidemia type E78.5 [facility] [address] [id number][place] [id number] Jul, Personal history of nicotine dependence Z87.891 [facility] [address] [id number][place] [address] Jul, Welcome to Medicare preventive visit Z00.00 ; Pure hypercholesterolemia E78.00 ; Hyperlipidemia, unspecified hyperlipidemia type E78.5 ; Personal history of nicotine dependence Z87.891 ; Rheumatoid arthritis, involving unspecified site, unspecified rheumatoid factor presence M06.9 and Encounter for immunization Z23 [facility] [address] [id number][place] [id number] Apr, [facility] [address] [id number][place] [id number] Mar, Hypotestosteronism E34.9 [facility] [id number] [address] Mar, Claustrophobia F40.[address] [facility] [address] [id number][place] [address] Mar, Hypotestosteronism E34.9 [facility] [address] [facility] [id number] [place] [address] Mar, Encounter for pre-operative laboratory testing Z01.[address] [facility] [address] [id number][place] [id number] Mar, Acute otitis externa of right ear, unspecified type H60.501 ; Hypotestosteronism E34.9 and Encounter for pre-operative laboratory testing Z01.812 [facility] [address] [id number][place] [id number] Mar, [facility] [address] [id number], [place] [id number] Mar, Hypogonadism in male E29.1 and Hypotestosteronism E34.9 [facility] [address] [id number], [place] [address] Mar, Acute otitis externa of right ear, unspecified type H60.501 [facility] [address] [id number], [place] [address] Mar, Hypotestosteronism E34.9 [facility] [address] [id number], [place] [address] Feb, [facility] [address] [facility] [id number][place] [id number] Feb, PVD (peripheral vascular disease) I73.9 ; Pure hypercholesterolemia E78.00 and Primary osteoarthritis, unspecified site M19.[address] [facility] [address] [id number], [place] [id number] Feb, Hypotestosteronism E34.9 [facility] [address] [id number], [place] [id number] Feb, Upper respiratory infection, viral J06.[address] [facility] [address] [id number][place] [id number] Feb, Hypotestosteronism E34.9 [facility] [address] [facility] [id number][place] [id number] January, [facility] [address] [id number], [place] [id number] January, Hypotestosteronism E34.9 [facility] [address] [id number], [place] [id number] January, Hypotestosteronism E34.9 [facility] [place] [id number] [id number] Dec, [facility] [address] [address] [facility] [address] [id number], [place] [id number] Dec, Erectile dysfunction, unspecified erectile dysfunction type N52.9 [facility] [address]00565100[place] [address] Dec, [facility] [address]65100[place] [address] Dec, Pre-operative cardiovascular examination Z01.810 ; PVD (peripheral vascular disease) I73.9 ; Anxiety F41.9 ; Rheumatoid arthritis, involving unspecified site, unspecified rheumatoid factor presence M06.9 ; Essential hypertension I10 ; Hyperlipidemia, unspecified hyperlipidemia type E78.5 and Hypotestosteronism E34.9 [facility] [address] [id number], [place] [id number] Dec, [facility] [address] [id number], [place] [address] Dec, Erectile dysfunction, unspecified erectile dysfunction type N52.9 and Hypotestosteronism E34.9 [facility] [address] [id number], [place] [id number] Dec, Hypotestosteronism E34.9 [facility] [address] [id number], [place] [id number] Nov, [facility] [address] [facility] [id number] [place] [address] Nov, Hypotestosteronism E34.9 [facility] [address] [facility] [id number][place] [id number] Nov, Pure hypercholesterolemia E78.00 and Primary osteoarthritis, unspecified site M19.[address] [facility] [address] [id number], [place] [id number] Nov, [facility] [address] [facility] [id number], [place] [address] Nov, Tear of left glenoid labrum, subsequent encounter S43.432D [facility] [address] [id number], [place] [address] Nov, Hypotestosteronism E34.9 [facility] [address] [id number], [place] [address] Nov, [facility] [address] [id number], [place] [id number] Nov, [facility] [address] [id number], [place] [id number] Nov, Erectile dysfunction, unspecified erectile dysfunction type N52.9 [facility] [address] [id number], [place] [id number] Nov, Erectile dysfunction, unspecified erectile dysfunction type N52.9 [facility] [address] [id number], [place] [id number] Nov, Viral upper respiratory tract infection J06.9 and Erectile dysfunction, unspecified erectile dysfunction type N52.9 [facility] [address] [id number], [place] [address] Oct, [facility] [address] [id number], [place] [address] Oct, [facility] [address] [id number], [place] [id number] Oct, Fall on same level due to nature of surface, initial encounter W18.39XA and Erectile dysfunction, unspecified erectile dysfunction type N52.9 [place] [address] [address] Sep, [place] [address] [address] Sep, Tear of left rotator cuff, unspecified tear extent M75.102 and Primary osteoarthritis, 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 [place] [address] [address] Aug, Primary osteoarthritis, unspecified site M19.91 [place] [address] [address] Jul, [place] [address] [address] Jul, Primary osteoarthritis, unspecified site M19.91 [place] [address] [address] Jul, Lumbago with sciatica, right side M54.41 [place] [address] [address] Jul, Primary osteoarthritis, 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 and Injury of left rotator cuff, subsequent encounter S46.002D [place] [address] [address] Jul, [place] [address] [id number] [place] [address] Jul, [place] [address] [id number] [place] [address] Jul, [place] [address] [address] Jul, Lumbago with sciatica, left side M54.42 ; Lumbago with sciatica, right side M54.41 ; Left shoulder pain, unspecified chronicity M25.512 and Essential hypertension I10 [place] [id number] [place] [address] Jun, Lumbago with sciatica, left side M54.42 ; Lumbago with sciatica, right side M54.41 ; Left shoulder pain, unspecified chronicity M25.512 ; Essential hypertension I10 ; Heart murmur previously undiagnosed R01.1 ; Overweight E66.3 ; Anxiety F41.9 and Chronic prescription opiate use Z79.891 [place] [address] [address] Jun, Primary osteoarthritis, unspecified site M19.91 [place] [address] [address] Jun, [place] [address] [address] May, Primary osteoarthritis, unspecified site M19.91 [place] [address] [address] May, Injury of left rotator cuff, subsequent encounter S46.002D [place] [address] [address] May, [place] [address] [address] Apr, [place] [address] [address] Apr, PVD (peripheral vascular disease) I73.9 ; Right leg claudication I73.9 ; Hyperlipidemia, unspecified hyperlipidemia type E78.5 ; Occlusion of femoropopliteal bypass graft, 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 and Essential hypertension I10 [place] [address] [address] Apr, Left shoulder pain, unspecified chronicity M25.512 [place] [address] [address] Mar, Left shoulder pain, unspecified chronicity M25.512 [facility] [address]65100[place], [place] [address] Mar, [facility] [address] [place] [address] Mar, [facility] [address]100[place], [place] [address] Mar, Dupuytren's contracture of hand M72.0 ; Essential hypertension I10 ; Pure hypercholesterolemia E78.00 ; Primary osteoarthritis, unspecified site M19.91 ; PVD (peripheral vascular disease) I73.9 and Moderate single current episode of major depressive disorder F32.1 [facility] [address]65100[place] [address] Feb, Dental examination Z01.20 and Dental caries K02.9 [facility] [id number] [place] [address] Feb, Primary osteoarthritis, unspecified site M19.91 [facility] [address]100[place], [place] [address] Feb, [facility] [id number] [place] [address] Feb, [facility] [address] [place] [address] Nov, [facility] [address] [place] [address] Nov, Dupuytren's contracture of hand M72.0 ; Pure hypercholesterolemia E78.00 ; Essential hypertension I10 ; PVD (peripheral vascular disease) I73.9 ; Primary osteoarthritis, unspecified site M19.91 and Rheumatoid arthritis, involving unspecified site, unspecified rheumatoid factor presence M06.9 [facility] [address], [place] [address] Nov, IMMUNIZATIONS No Known Immunizations SOCIAL HISTORY Never Assessed REASON FOR VISIT Test results PLAN OF CARE VITAL SIGNS MEDICATIONS Unknown Medications RESULTS No Results PROCEDURES No Known procedures INSTRUCTIONS MEDICATIONS ADMINISTERED No Known Medications MEDICAL (GENERAL) HISTORY Type Description Date Medical History dupuytren's contracture-hand bilateral Medical History hypertension Medical History hyperlipidemia Medical History Arthritis Medical History peripheral vascular disease Medical History rheumatoid dcjylgzdt-wtvhjfniersl-wbdqonus AGAPITO and Rheum factor 2016 Medical History left shoulder arthritis Medical History Pituitary Microadenoma Per Dr. Gandhi Consult Note 2017 Medical History multiple calcified granulomas-repeat chest CT Surgical History cervical fusion C3-C7 -[facility] 05/2015 Surgical History dupuytren's contracture-bilateral hands Surgical History Artery bypass in right leg Surgical History Occipital bone surgery right side Surgical History surgery near right eye Surgical History [place] Left shoulder replacement 01/13/2018 Surgical History colonoscopy 2012 Hospitalization History Surgery(s) only Hospitalization History [facility] [place]- Cold Symptoms 03/03/2018
--- OUTSIDE RECORDS SUMMARY | 2018-12-22 13:49 | XMS REPORT ---
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 Name Role Phone MARLIN GALVAN Unavailable PROBLEMS Type Condition ICD9-CM Code [id number] Code Onset Dates Condition Status SNOMED Code Problem Chronic prescription opiate use Z79.891 Active 191947312 Problem Tear of left rotator cuff, unspecified tear extent M75.102 Active 4910666 Problem Left shoulder pain, unspecified chronicity M25.512 Active 80309549 Problem Personal history of nicotine dependence Z87.891 Active 277322513 Problem Essential hypertension I10 Active 71751156 Problem Welcome to Medicare preventive visit Z00.00 Active 891001281 Problem Rheumatoid arthritis, involving unspecified site, unspecified rheumatoid factor presence M06.9 Active 33872586 Problem Dupuytren's contracture of hand M72.0 Active 840105482 Problem Hypotestosteronism E34.9 Active 7984020297245 Problem Erectile dysfunction, unspecified erectile dysfunction type N52.9 Active 837282566 Problem Claustrophobia F40.240 Active 72144210 Problem Hypogonadism in male E29.1 Active 45776775 Problem Pure hypercholesterolemia E78.00 Active 424715364 Problem Moderate single current episode of major depressive disorder F32.1 Active 45877690 Problem PVD (peripheral vascular disease) I73.9 Active 103369749 Problem Primary osteoarthritis, unspecified site M19.91 Active 854573062 Problem Primary osteoarthritis, 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 Active 54768622 Problem Anxiety F41.9 Active 21302792 Problem Right leg claudication I73.9 Active 718437366 Problem Lumbago with sciatica, left side M54.42 Active 002985376 Problem Hyperlipidemia, unspecified hyperlipidemia type E78.5 Active 96440919 Problem Lumbago with sciatica, right side M54.41 Active [id number] ALLERGIES No Information ENCOUNTERS Encounter Location Date Diagnosis [facility] [address] [id number] [id number] Sep, [facility] [address] [id number][place] [id number] Jul, [facility] [address] [id number], [place] [id number] Jul, [facility] [address] [facility] [id number], [place] [address] Jul, Hyperglycemia R73.9 [facility] [address] [id number][place] [id number] Jul, [facility] [address] [id number][place] [id number] Jul, Hyperglycemia R73.9 and Pure hyperch[facility]ole[facility] E78.00 [facility] [address] [facility] [id number][place] [address] Jul, Hyperlipidemia, unspecified hyperlipidemia type E78.5 [facility] [address] [id number][place] [address] Jul, Personal history of nicotine dependence Z87.891 [facility] [address] [facility] [address] [id number][place] [id number] Jul, Welcome to Medicare preventive visit Z00.00 ; Pure hypercholesterolemia E78.00 ; Hyperlipidemia, unspecified hyperlipidemia type E78.5 ; Personal history of nicotine dependence Z87.891 ; Rheumatoid arthritis, involving unspecified site, unspecified rheumatoid factor presence M06.9 and Encounter for immunization Z23 [facility] [address] [id number][place] [id number] Apr, [facility] [address] [id number], [place] [id number] Mar, Hypotestosteronism E34.9 [facility] [address] [id number][place] [id number] Mar, Claustrophobia F40.240 [facility] [address] [id number][place] [id number] Mar, Hypotestosteronism E34.9 [facility] [address] [facility] [id number][place] [address] 10 Mar, 2018 Encounter for pre-operative laboratory testing Z01.[address] [facility] [address] [id number], [place] [address] Mar, Acute otitis externa of right ear, unspecified type H60.501 ; Hypotestosteronism E34.9 and Encounter for pre-operative laboratory testing Z01.812 [facility] [address] [id number], [place] [id number] Mar, [facility] [address] [id number], [place] [id number] Mar, Hypogonadism in male E29.1 and Hypotestosteronism E34.9 [facility] [address] [id number], [place] [address] Mar, Acute otitis externa of right ear, unspecified type H60.501 [facility] [address] [id number], [place] [id number] Mar, Hypotestosteronism E34.9 [facility] [address] [id number], [place] [id number] Feb, [facility] [address] [facility] [id number][place] [id number] Feb, PVD (peripheral vascular disease) I73.9 ; Pure hypercholesterolemia E78.00 and Primary osteoarthritis, unspecified site M19.[address] [facility] [address] [id number], [place] [address] Feb, Hypotestosteronism E34.[address] [facility] [address] [id number], [place] [id number] Feb, Upper respiratory infection, viral J06.9 [facility] [address] [id number], [place] [address] Feb, Hypotestosteronism E34.9 [facility] [address] [facility] [id number], [place] [id number] January, [facility] [address] [id number], [place] [id number] January, Hypotestosteronism E34.9 [facility] [address] [id number], [place] [id number] January, Hypotestosteronism E34.9 [facility] [address] [facility] [id number], [place] [id number] Dec, [facility] [address] [id number], [place] [id number] Dec, Erectile dysfunction, unspecified erectile dysfunction type N52.9 [facility] [address] [id number][place] [address] Dec, [facility] [address]00565100[place] [address] Dec, Pre-operative cardiovascular examination Z01.810 ; PVD (peripheral vascular disease) I73.9 ; Anxiety F41.9 ; Rheumatoid arthritis, involving unspecified site, unspecified rheumatoid factor presence M06.9 ; Essential hypertension I10 ; Hyperlipidemia, unspecified hyperlipidemia type E78.5 and Hypotestosteronism E34.9 [facility] [address] [id number], [place] [address] Dec, [facility] [address] [id number], [place] [address] Dec, Erectile dysfunction, unspecified erectile dysfunction type N52.9 and Hypotestosteronism E34.9 [facility] [address] [id number], [place] [address] Dec, Hypotestosteronism E34.9 [facility] [address] [facility] [id number], [place] [id number] Nov, [facility] [address] [facility] [id number], [place] [address] Nov, Hypotestosteronism E34.9 [facility] [address] [id number] [place] [id number] Nov, Pure hypercholesterolemia E78.00 and Primary osteoarthritis, unspecified site M19.[address] [facility] [address] [id number], [place] [address] Nov, [facility] [address] [facility] [id number], [place] [address] Nov, Tear of left glenoid labrum, subsequent encounter S43.432D [facility] [address] [id number], [place] [address] Nov, Hypotestosteronism E34.9 [facility] [address] [id number], [place] [id number] Nov, [facility] [address] [id number], [place] [id number] Nov, [facility] [address] [id number], [place] [id number] Nov, Erectile dysfunction, unspecified erectile dysfunction type N52.9 [facility] [address] [id number], [place] [id number] Nov, Erectile dysfunction, unspecified erectile dysfunction type N52.9 [facility] [address] [id number], [place] [address] Nov, Viral upper respiratory tract infection J06.9 and Erectile dysfunction, unspecified erectile dysfunction type N52.[address] [facility] [address] [id number], [place] [address] Oct, [facility] [address] [id number], [place] [id number] Oct, [facility] [address] [id number], [place] [id number] Oct, Fall on same level due to nature of surface, initial encounter W18.39XA and Erectile dysfunction, unspecified erectile dysfunction type N52.9 [facility] [id number] [place] [address] Sep, [facility] [address] [address] Sep, Tear of left rotator cuff, unspecified tear extent M75.102 and Primary osteoarthritis, 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 [facility] [id number] [place] [address] Aug, Primary osteoarthritis, unspecified site M19.91 [facility] [id number] [place] [address] Jul, [facility] [address] [address] Jul, Primary osteoarthritis, unspecified site M19.91 [facility] [id number] [place] [address] 1093 Jul, Lumbago with sciatica, right side M54.41 [facility] [id number] [place] [address]2872- 2735 Jul, Primary osteoarthritis, 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 and Injury of left rotator cuff, subsequent encounter S46.002D [facility] [id number] [place] [address]- [address]75 Jul, [facility] [id number] [place] [address]66- [address]25 Jul, [facility] [id number] [place] [address] 91850- 5493 Jul, [facility] [id number] [place] [address]- 978[address] Jul, Lumbago with sciatica, left side M54.42 ; Lumbago with sciatica, right side M54.41 ; Left shoulder pain, unspecified chronicity M25.512 and Essential hypertension I10 [facility] [id number] [place] [address] 75001- 0544 Jun, Lumbago with sciatica, left side M54.42 ; Lumbago with sciatica, right side M54.41 ; Left shoulder pain, unspecified chronicity M25.512 ; Essential hypertension I10 ; Heart murmur previously undiagnosed R01.1 ; Overweight E66.3 ; Anxiety F41.9 and Chronic prescription opiate use Z79.891 [facility] [id number] [place] [address] 24055- 1884 Jun, Primary osteoarthritis, unspecified site M19.91 [facility] [id number] [place] [address] 10054- 2686 Jun, [facility] [address] [address] May, Primary osteoarthritis, unspecified site M19.91 [facility] [id number] [place] [address] 41988- 5805 May, Injury of left rotator cuff, subsequent encounter S46.002D [facility] [id number] [place] [address] 91349- 2296 May, [facility] [id number] [place] [address] 82428- 7080 Apr, [facility] [id number] [place] [address] 10073- 1890 Apr, PVD (peripheral vascular disease) I73.9 ; Right leg claudication I73.9 ; Hyperlipidemia, unspecified hyperlipidemia type E78.5 ; Occlusion of femoropopliteal bypass graft, 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 and Essential hypertension I10 [facility] [address] [id number] [address] Apr, Left shoulder pain, unspecified chronicity M25.512 [facility] [id number] [place] [address] 25106- 3427 Mar, Left shoulder pain, unspecified chronicity M25.512 [facility] [id number] [place] [address] 57066- 5814 Mar, [facility] [address] [address] Mar, [facility] [id number] [place] [address] 61885- 1507 Mar, Dupuytren's contracture of hand M72.0 ; Essential hypertension I10 ; Pure hypercholesterolemia E78.00 ; Primary osteoarthritis, unspecified site M19.91 ; PVD (peripheral vascular disease) I73.9 and Moderate single current episode of major depressive disorder F32.1 [facility] [address] [id number] Feb, Dental examination Z01.20 and Dental caries K02.9 [facility] [id number] [place] [address] 18436- 3620 Feb, Primary osteoarthritis, unspecified site M19.91 [facility] [id number] [place] [address] 15348- 1535 Feb, [facility] [id number] [place] [address] 94564- 9812 Feb, [facility] [id number] [place] [address] 42351- 2643 Nov, [facility] [id number] [place] [address] 31373- 0567 Nov, Dupuytren's contracture of hand M72.0 ; Pure hypercholesterolemia E78.00 ; Essential hypertension I10 ; PVD (peripheral vascular disease) I73.9 ; Primary osteoarthritis, unspecified site M19.91 and Rheumatoid arthritis, involving unspecified site, unspecified rheumatoid factor presence M06.9 [facility] [address] [place] [address] 44515- 3964 Nov, IMMUNIZATIONS No Known Immunizations SOCIAL HISTORY Never Assessed REASON FOR VISIT A1C results PLAN OF CARE VITAL SIGNS MEDICATIONS Medication Instructions Dosage Frequency Start Date End Date Duration Status MetFORMIN HCl ER 500 mg Orally Once a day 1 tablet with evening meal 24h Jul, 30 day(s) Active RESULTS No Results PROCEDURES No Known procedures INSTRUCTIONS MEDICATIONS ADMINISTERED No Known Medications MEDICAL (GENERAL) HISTORY Type Description Date Medical History dupuytren's contracture-hand bilateral Medical History hypertension Medical History hyperlipidemia Medical History Arthritis Medical History peripheral vascular disease Medical History rheumatoid [id number]-srbjqdgkbvhc-hmwktlwn AGAPITO and Rheum factor 2016 Medical History left shoulder arthritis Medical History Pituitary Microadenoma Per Dr. Gandhi Consult Note 2018 Surgical History cervical fusion C3-C7 -[facility] 05/2015 Surgical History dupuytren's contracture-bilateral hands Surgical History Artery bypass in right leg Surgical History Occipital bone surgery right side Surgical History surgery near right eye Surgical History [place] Left shoulder replacement 01/13/2018 Surgical History colonoscopy 2012 Hospitalization History Surgery(s) only Hospitalization History [facility] [place]- Cold Symptoms 03/03/2018
--- OUTSIDE RECORDS SUMMARY | 2018-12-22 13:49 | XMS REPORT ---
Author Author COLE MARLIN [facility] Address [address] [place] [address] Care Team Providers Care Masonry Installer Name Role Phone MARLIN GALVAN Unavailable PROBLEMS Type Condition ICD9-CM Code SJD54-UJ Code Onset Dates Condition Status SNOMED Code Problem Chronic prescription opiate use Z79.891 Active 843270857 Problem Tear of left rotator cuff, unspecified tear extent M75.102 Active 5862465 Problem Left shoulder pain, unspecified chronicity M25.512 Active 01387037 Problem Personal history of nicotine dependence Z87.891 Active 738464613 Problem Essential hypertension I10 Active 79774117 Problem Welcome to Medicare preventive visit Z00.00 Active 159651871 Problem Rheumatoid arthritis, involving unspecified site, unspecified rheumatoid factor presence M06.9 Active 47960661 Problem Dupuytren's contracture of hand M72.0 Active 451833341 Problem Hypotestosteronism E34.9 Active 9030142881401 Problem Erectile dysfunction, unspecified erectile dysfunction type N52.9 Active 624594140 Problem Claustrophobia F40.240 Active 72457725 Problem Hypogonadism in male E29.1 Active 69086516 Problem Pure hypercholesterolemia E78.00 Active 448736797 Problem Moderate single current episode of major depressive disorder F32.1 Active 06673825 Problem PVD (peripheral vascular disease) I73.9 Active 461932503 Problem Primary osteoarthritis, unspecified site M19.91 Active 804642538 Problem Primary osteoarthritis, 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 Active 98992347 Problem Anxiety F41.9 Active 80698791 Problem Right leg claudication I73.9 Active 780251540 Problem Lumbago with sciatica, left side M54.42 Active 578205127 Problem Hyperlipidemia, unspecified hyperlipidemia type E78.5 Active 76316683 Problem Lumbago with sciatica, right side M54.41 Active [id number] ALLERGIES No Information ENCOUNTERS Encounter Location Date Diagnosis [facility] [address] [id number] [id number] Sep, [facility] [address] [id number], [place] [address] Jul, Hyperglycemia R73.[address] [facility] [address] [id number][place] [id number] Jul, [facility] [address] [id number][place] [id number] Jul, Hyperglycemia R73.9 and Pure hypercholesterolemia E78.00 [facility] [address] [facility] [id number], [place] [address] Jul, Hyperlipidemia, unspecified hyperlipidemia type E78.5 [facility] [address] [id number][place] [id number] 15 Jul, 2018 Personal history of nicotine dependence Z87.891 [facility] [address] [id number][place] [address] Jul, Welcome to Medicare preventive visit Z00.00 ; Pure hypercholesterolemia E78.00 ; Hyperlipidemia, unspecified hyperlipidemia type E78.5 ; Personal history of nicotine dependence Z87.891 ; Rheumatoid arthritis, involving unspecified site, unspecified rheumatoid factor presence M06.9 and Encounter for immunization Z23 [facility] [address] [id number][place] [id number] Apr, [facility] [address] [id number][place] [id number] Mar, Hypotestosteronism E34.9 [facility] [address] [id number] [place] [address] Mar, Claustrophobia F40.240 [facility] [address] [id number][place] [id number] Mar, [facility]estosteronism E34.9 [facility] [address] [facility] [id number], [place] [address] Mar, Encounter for pre-operative laboratory testing Z01.[address] [facility] [address] [id number] [place] [id number] Mar, Acute otitis externa of right ear, unspecified type H60.501 ; Hypotestosteronism E34.9 and Encounter for pre-operative laboratory testing Z01.[address] [facility] [address] [id number] [place] [id number] Mar, [facility] [address] [id number] [place] [address] Mar, Hypogonadism in male E29.1 and Hypotestosteronism E34.[address] [facility] [address] [id number] [place] [id number] Mar, Acute otitis externa of right ear, unspecified type H60.[address] [facility] [address] [id number][place] [id number] Mar, Hypotestosteronism E34.[address] [facility] [address] [id number][place] [id number] Feb, [facility] [id number] [place] [id number] Feb, PVD (peripheral vascular disease) I73.9 ; Pure hypercholesterolemia E78.00 and Primary osteoarthritis, unspecified site M19.[address] [facility] [address] [id number][place] [id number] Feb, Hypotestosteronism E34.[address] [facility] [address] [id number][place] [address] Feb, Upper respiratory infection, viral J06.[address] [facility] [address] [id number][place] [address] Feb, Hypotestosteronism E34.9 [facility] [address] [id number] [place] [id number] January, [facility] [address] [id number][place] [id number] January, Hypotestosteronism E34.9 [facility] [address] [id number], [place] [id number] January, Hypotestosteronism E34.9 [facility] [address] [facility] [id number] [place] [address] Dec, [facility] [address] [id number], [place] [id number] Dec, Erectile dysfunction, unspecified erectile dysfunction type N52.9 [facility] [address] [facility] [id number] [place] [id number] Dec, [facility] [address] [id number] [place] [id number] Dec, Pre-operative cardiovascular examination Z01.810 ; PVD (peripheral vascular disease) I73.9 ; Anxiety F41.9 ; Rheumatoid arthritis, involving unspecified site, unspecified rheumatoid factor presence M06.9 ; Essential hypertension I10 ; Hyperlipidemia, unspecified hyperlipidemia type E78.5 and Hypotestosteronism E34.[address] [facility] [address] [id number][place] [id number] Dec, [facility] [address] [id number], [place] [address] Dec, Erectile dysfunction, unspecified erectile dysfunction type N52.9 and Hypotestosteronism E34.9 [facility] [address] [id number][place] [id number] Dec, Hypotestosteronism E34.9 [facility] [address] [facility] [id number] [place] [id number] Nov, [facility] [address] [facility] [id number], [place] [address] Nov, Hypotestosteronism E34.9 [facility] [address] [facility] [id number] [place] [id number] Nov, Pure hypercholesterolemia E78.00 and Primary osteoarthritis, unspecified site M19.[address] [facility] [address] [id number] [place] [id number] Nov, [facility] [address] [facility] [id number], [place] [address] Nov, Tear of left glenoid labrum, subsequent encounter S43.432D [facility] [address] [id number][place] [id number] Nov, Hypotestosteronism E34.9 [facility] [address] [id number] [place] [id number] Nov, [facility] [address] [id number], [place] [id number] Nov, [facility] [address] [id number], [place] [address] Nov, Erectile dysfunction, unspecified erectile dysfunction type N52.9 [facility] [address] [id number], [place] [id number] Nov, Erectile dysfunction, unspecified erectile dysfunction type N52.9 [facility] [address] [id number], [place] [address] Nov, Viral upper respiratory tract infection J06.9 and Erectile dysfunction, unspecified erectile dysfunction type N52.9 [facility] [address] [id number], [place] [id number] Oct, [facility] [address] [id number], [place] [id number] Oct, [facility] [address] [id number] [place] [address] Oct, Fall on same level due to nature of surface, initial encounter W18.39XA and Erectile dysfunction, unspecified erectile dysfunction type N52.9 [facility] [address] [facility] [id number], [place] [address] Sep, [facility] [address] [facility] [id number], [place] [address] 18 Thierry, 2018 Tear of left rotator cuff, unspecified tear extent M75.102 and Primary osteoarthritis, 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 [id number] [place] [address] Aug, Primary osteoarthritis, unspecified site M19.91 [id number] [place] [address] Jul, [address] [address] Jul, Primary osteoarthritis, unspecified site M19.91 [id number] [place] [address] Jul, Lumbago with sciatica, right side M54.41 [id number] [place] [address] Jul, Primary osteoarthritis, 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 and Injury of left rotator cuff, subsequent encounter S46.002D [id number] [place] [address] Jul, [address] [address] Jul, [id number] [place] [address] Jul, [id number] [place] [address] Jul, Lumbago with sciatica, left side M54.42 ; Lumbago with sciatica, right side M54.41 ; Left shoulder pain, unspecified chronicity M25.512 and Essential hypertension I10 [id number] [place] [address] Jun, Lumbago with sciatica, left side M54.42 ; Lumbago with sciatica, right side M54.41 ; Left shoulder pain, unspecified chronicity M25.512 ; Essential hypertension I10 ; Heart murmur previously undiagnosed R01.1 ; Overweight E66.3 ; Anxiety F41.9 and Chronic prescription opiate use Z79.891 [id number] [place] [address] Jun, Primary osteoarthritis, unspecified site M19.91 [facility] [id number] [place] [address] Jun, [address] [address] May, Primary osteoarthritis, unspecified site M19.91 [id number] [place] [address] May, Injury of left rotator cuff, subsequent encounter S46.002D [id number] [place] [address]- [address] May, [address] [address] Apr, [id number] [place] [address] Apr, PVD (peripheral vascular disease) I73.9 ; Right leg claudication I73.9 ; Hyperlipidemia, unspecified hyperlipidemia type E78.5 ; Occlusion of femoropopliteal bypass graft, 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 and Essential hypertension I10 [id number] [place] [address] Apr, Left shoulder pain, unspecified chronicity M25.512 [id number] [place] [address] Mar, Left shoulder pain, unspecified chronicity M25.512 [id number] [place] [address] Mar, [id number] [place] [address]60 Mar, [id number] [place] [address] 74[address] Mar, Dupuytren's contracture of hand M72.0 ; Essential hypertension I10 ; Pure hypercholesterolemia E78.00 ; Primary osteoarthritis, unspecified site M19.91 ; PVD (peripheral vascular disease) I73.9 and Moderate single current episode of major depressive disorder F32.1 [facility] [address] [id number] [id number] Feb, Dental examination Z01.20 and Dental caries K02.9 [facility] [id number] [place] [address] Feb, Primary osteoarthritis, unspecified site M19.91 [id number] [place] [address] 30[address] Feb, [id number] [place] [address] Feb, [id number] [place] [address] 99[address] Nov, [id number] [place] [address] 22410- 4[address] Nov, Dupuytren's contracture of hand M72.0 ; Pure hypercholesterolemia E78.00 ; Essential hypertension I10 ; PVD (peripheral vascular disease) I73.9 ; Primary osteoarthritis, unspecified site M19.91 and Rheumatoid arthritis, involving unspecified site, unspecified rheumatoid factor presence M06.9 [facility] [address] [place] [address] Nov, IMMUNIZATIONS No Known Immunizations SOCIAL HISTORY Never Assessed REASON FOR VISIT Lab (walk-in) PLAN OF CARE Activity Details Pending Test A1C (IN HOUSE) VITAL SIGNS MEDICATIONS Medication Instructions Dosage Frequency Start Date End Date Duration Status Plavix 75 MG Orally Once a day 1 tablet 24h Active Cyclobenzaprine HCl 10 mg Orally Three times a day 1 tablet as needed 8h Active Aspirin Adult Low Dose 81 MG Orally Once a day 1 tablet 24h Active Lisinopril-Hydrochlorothiazide 10-12.5 MG Orally Once a day 1 tablet 24h 90 days Active Lipitor 20 mg Orally Once a day 1 tablet 24h 90 days Active Fenofibrate 48 MG Orally Once a day 1 tablet 24h 26 Jul, 2018 90 days Active RESULTS No Results PROCEDURES Procedure Date Ordered Result Body Site GLYCATED HEMOGLOBIN TEST Aug 15, 2018 INSTRUCTIONS MEDICATIONS ADMINISTERED No Known Medications MEDICAL (GENERAL) HISTORY Type Description Date Medical History dupuytren's contracture-hand bilateral Medical History hypertension Medical History hyperlipidemia Medical History Arthritis Medical History peripheral vascular disease Medical History rheumatoid udsgoqkpi-yoaytmpmydcv-vxfybloq AGAPITO and Rheum factor 2016 Medical History left shoulder arthritis Medical History Pituitary Microadenoma Per Dr. Gandhi Consult Note 2018 Surgical History cervical fusion C3-C7 -[facility] 05/2015 Surgical History dupuytren's contracture-bilateral hands Surgical History Artery bypass in right leg Surgical History Occipital bone surgery right side Surgical History surgery near right eye Surgical History [place] Left shoulder replacement 01/13/2018 Surgical History colonoscopy 2012 Hospitalization History Surgery(s) only Hospitalization History [facility] [place]- Cold Symptoms 03/03/2018
--- OUTSIDE RECORDS SUMMARY | 2018-12-22 13:49 | XMS REPORT ---
Author Author REESE MORALES [facility] Address [address] [place] [address] Care Team Providers Care Running Instructor Name Role Phone CARMENREESE Unavailable PROBLEMS Type Condition ICD9-CM Code YYM69-RI Code Onset Dates Condition Status SNOMED Code Problem Chronic prescription opiate use Z79.891 Active 294917939 Problem Tear of left rotator cuff, unspecified tear extent M75.102 Active 8961228 Problem Left shoulder pain, unspecified chronicity M25.512 Active 52787061 Problem Personal history of nicotine dependence Z87.891 Active 607369482 Problem Essential hypertension I10 Active 05780730 Problem Welcome to Medicare preventive visit Z00.00 Active 710075387 Problem Rheumatoid arthritis, involving unspecified site, unspecified rheumatoid factor presence M06.9 Active 78764634 Problem Dupuytren's contracture of hand M72.0 Active 170679200 Problem Hypotestosteronism E34.9 Active 2515399961408 Problem Erectile dysfunction, unspecified erectile dysfunction type N52.9 Active 454016847 Problem Claustrophobia F40.240 Active 58369127 Problem Hypogonadism in male E29.1 Active 91870768 Problem Pure hypercholesterolemia E78.00 Active 362287525 Problem Moderate single current episode of major depressive disorder F32.1 Active 63128870 Problem PVD (peripheral vascular disease) I73.9 Active 957865729 Problem Primary osteoarthritis, unspecified site M19.91 Active 276838518 Problem Primary osteoarthritis, 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 Active 18544969 Problem Anxiety F41.9 Active 32476180 Problem Right leg claudication I73.9 Active 452975975 Problem Lumbago with sciatica, left side M54.42 Active 392982324 Problem Hyperlipidemia, unspecified hyperlipidemia type E78.5 Active 42970480 Problem Lumbago with sciatica, right side M54.41 Active [id number] ALLERGIES No Information ENCOUNTERS Encounter Location Date Diagnosis [facility] [address] [id number], [place] [id number] Sep, [facility] [address] [facility] [id number], [place] [address] Jul, Hyperglycemia R73.9 [facility] [address] [id number][place] [id number] Jul, [facility] [address] [id number][place] [address] Jul, Hyperglycemia R73.9 and Pure hypercholesterolemia E78.00 [facility] [address] [facility] [id number], [place] [address] Jul, Hyperlipidemia, unspecified hyperlipidemia type E78.5 [facility] [address] [id number][place] [address] Jul, Personal history of nicotine dependence Z87.891 [facility] [address] [place] [address] AVE [id number][place] [id number] Jul, Welcome to Medicare preventive visit Z00.00 ; Pure hypercholesterolemia E78.00 ; Hyperlipidemia, unspecified hyperlipidemia type E78.5 ; Personal history of nicotine dependence Z87.891 ; Rheumatoid arthritis, involving unspecified site, unspecified rheumatoid factor presence M06.9 and Encounter for immunization Z23 [facility] [address] [id number][place] [id number] Apr, [facility] [address] [id number][place] [address] Mar, Hypotestosteronism E34.9 [facility] [address] [id number][place] [id number] Mar, Claustrophobia F40.240 [facility] [address] [id number][place] [id number] Mar, Hypotestosteronism E34.9 [facility] [address] [facility] [id number][place] [address] Mar, Encounter for pre-operative laboratory testing Z01.[address] [facility] [address] [id number][place] [id number] Mar, Acute otitis externa of right ear, unspecified type H60.501 ; Hypotestosteronism E34.9 and Encounter for pre-operative laboratory testing Z01.[address] [facility] [address] [id number][place] [id number] Mar, [facility] [address] [id number], [place] [address] Mar, Hypogonadism in male E29.1 and Hypotestosteronism E34.[address] [facility] [address] [id number][place] [id number] Mar, Acute otitis externa of right ear, unspecified type H60.501 [facility] [address] [id number][place] [id number] Mar, Hypotestosteronism E34.[address] [facility] [address] [id number], [place] [id number] Feb, [facility] [id number][place] [id number] Feb, PVD (peripheral vascular disease) I73.9 ; Pure hypercholesterolemia E78.00 and Primary osteoarthritis, unspecified site M19.[address] [facility] [address] [id number][place] [address] Feb, Hypotestosteronism E34.[address] [facility] [address] [id number][place] [id number] Feb, Upper respiratory infection, viral J06.9 [facility] [address] [id number], [place] [id number] Feb, Hypotestosteronism E34.9 [facility] [address] [id number][place] [id number] January, [facility] [address] [id number], [place] [id number] January, Hypotestosteronism E34.9 [facility] [address] [id number], [place] [address] January, Hypotestosteronism E34.9 [facility] [address] [facility] [id number][place] [id number] Dec, [facility] [address] [id number], [place] [id number] Dec, Erectile dysfunction, unspecified erectile dysfunction type N52.9 [facility] [address] [facility] [id number], [place] [address] Dec, [facility] [place] [id number] [id number] Dec, Pre-operative cardiovascular examination Z01.810 ; PVD (peripheral vascular disease) I73.9 ; Anxiety F41.9 ; Rheumatoid arthritis, involving unspecified site, unspecified rheumatoid factor presence M06.9 ; Essential hypertension I10 ; Hyperlipidemia, unspecified hyperlipidemia type E78.5 and Hypotestosteronism E34.[address] [facility] [address] [id number], [place] [id number] Dec, [facility] [address] [id number], [place] [address] Dec, Erectile dysfunction, unspecified erectile dysfunction type N52.9 and Hypotestosteronism E34.[address] [facility] [address] [id number], [place] [address] Dec, Hypotestosteronism E34.9 [facility] [address] [facility] [id number], [place] [id number] Nov, [facility] [address] [facility] [id number], [place] [address] Nov, Hypotestosteronism E34.9 [facility] [place] [address] [facility] [id number], [place] [address] Nov, Pure hypercholesterolemia E78.00 and Primary osteoarthritis, unspecified site M19.[address] [facility] [address] [id number], [place] [id number] Nov, [facility] [address] [facility] [id number], [place] [address] Nov, Tear of left glenoid labrum, subsequent encounter S43.432D [facility] [address] [id number], [place] [id number] Nov, Hypotestosteronism E34.9 [facility] [address] [id number], [place] [id number] 15 Nov, 2017 [facility] [address] [id number], [place] [address] 14 Nov, 2017 [facility] [address] [id number], [place] [address] Nov, Erectile dysfunction, unspecified erectile dysfunction type N52.9 [facility] [address] [id number], [place] [id number] Nov, Erectile dysfunction, unspecified erectile dysfunction type N52.9 [facility] [address] [id number], [place] [address] Nov, Viral upper respiratory tract infection J06.9 and Erectile dysfunction, unspecified erectile dysfunction type N52.9 [facility] [address] [id number], [place] [address] Oct, [facility] [address] [id number], [place] [address] Oct, [facility] [address] [id number], [place] [address] Oct, Fall on same level due to nature of surface, initial encounter W18.39XA and Erectile dysfunction, unspecified erectile dysfunction type N52.9 [facility] [address] [facility] [id number], [place] [address] Sep, [facility] [address] [facility] [id number], [place] [address] Sep, Tear of left rotator cuff, unspecified tear extent M75.102 and Primary osteoarthritis, 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 [place] [address] [place] [id number] [place] [address] Aug, Primary osteoarthritis, unspecified site M19.91 [facility] [address] [id number] [place] [address] Jul, [place] [address] [address] Jul, Primary osteoarthritis, unspecified site M19.91 [place] [place] [id number] [place] [address] Jul, Lumbago with sciatica, right side M54.41 [facility] [id number] [place] [address] Jul, Primary osteoarthritis, 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 and Injury of left rotator cuff, subsequent encounter S46.002D [place] [id number] [place] [address] Jul, [place] [id number] [place] [address] Jul, [facility] [id number] [place] [address] Jul, [facility] [address] [id number] [place] [address] Jul, Lumbago with sciatica, left side M54.42 ; Lumbago with sciatica, right side M54.41 ; Left shoulder pain, unspecified chronicity M25.512 and Essential hypertension I10 [place] [place] [address] [id number] [place] [address] Jun, Lumbago with sciatica, left side M54.42 ; Lumbago with sciatica, right side M54.41 ; Left shoulder pain, unspecified chronicity M25.512 ; Essential hypertension I10 ; Heart murmur previously undiagnosed R01.1 ; Overweight E66.3 ; Anxiety F41.9 and Chronic prescription opiate use Z79.891 [facility] [address] [id number] [place] [address] Jun, Primary osteoarthritis, unspecified site M19.91 [facility] [id number] [place] [address] 6[address] Jun, [place] [id number] [place] [address] May, Primary osteoarthritis, unspecified site M19.91 [place] [id number] [place] [address] 13099[address] 0471 May, Injury of left rotator cuff, subsequent encounter S46.002D [place] [facility] [address] [id number] [place] [address]87[address] 8697 May, [place] [address] [id number] [place] [address] 2[address] Apr, [place] [address] [id number] [place] [address] Apr, PVD (peripheral vascular disease) I73.9 ; Right leg claudication I73.9 ; Hyperlipidemia, unspecified hyperlipidemia type E78.5 ; Occlusion of femoropopliteal bypass graft, 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 and Essential hypertension I10 [place] [id number] [place] [address]58[address] 39[address] Apr, Left shoulder pain, unspecified chronicity M25.512 [place] [id number] [place] [address]7943- [address]73 Mar, Left shoulder pain, unspecified chronicity M25.512 [facility] [id number] [place] [address]86- [address] Mar, [place] [id number] [place] [address]3957- [address]80 Mar, [place] [address] [address] Mar, Dupuytren's contracture of hand M72.0 ; Essential hypertension I10 ; Pure hypercholesterolemia E78.00 ; Primary osteoarthritis, unspecified site M19.91 ; PVD (peripheral vascular disease) I73.9 and Moderate single current episode of major depressive disorder F32.1 [facility] [address] [place] [address] [id number] [id number] Feb, Dental examination Z01.20 and Dental caries K02.9 [facility] [id number] [place] [address]89[address] Feb, Primary osteoarthritis, unspecified site M19.91 [facility] [address] [place] [id number] [place] [address]2315[address] 9341 Feb, [place] [id number] [place] [address] 48264[address] 5[address] Feb, [facility] [id number] [place] [address] 29993- 1343 Nov, [facility] [id number] [place] [address] 76231- 9316 Nov, Dupuytren's contracture of hand M72.0 ; Pure hypercholesterolemia E78.00 ; Essential hypertension I10 ; PVD (peripheral vascular disease) I73.9 ; Primary osteoarthritis, unspecified site M19.91 and Rheumatoid arthritis, involving unspecified site, unspecified rheumatoid factor presence M06.9 [place] [address] [place] [address] 88454- 9129 Nov, IMMUNIZATIONS No Known Immunizations SOCIAL HISTORY Never Assessed REASON FOR VISIT Medication question PLAN OF CARE VITAL SIGNS MEDICATIONS Unknown Medications RESULTS No Results PROCEDURES No Known procedures INSTRUCTIONS MEDICATIONS ADMINISTERED No Known Medications MEDICAL (GENERAL) HISTORY Type Description Date Medical History dupuytren's contracture-hand bilateral Medical History hypertension Medical History hyperlipidemia Medical History Arthritis Medical History peripheral vascular disease Medical History rheumatoid corskohjf-xjrhzidizuyx-lrtqwvnf AGAPITO and Rheum factor 2016 Medical History left shoulder arthritis Medical History Pituitary Microadenoma Per Dr. Gandhi Consult Note 2018 Surgical History cervical fusion C3-C7 -[facility] 05/2015 Surgical History dupuytren's contracture-bilateral hands Surgical History Artery bypass in right leg Surgical History Occipital bone surgery right side Surgical History surgery near right eye Surgical History [place] Left shoulder replacement 01/13/2018 Surgical History colonoscopy 2012 Hospitalization History Surgery(s) only Hospitalization History [facility] [place]- Cold Symptoms 03/03/2018
--- OUTSIDE RECORDS SUMMARY | 2018-12-22 13:50 | XMS REPORT ---
Author Author [facility] Address [address] [place] [address] Care Team Providers Care Trim And Burr Operator Name Role Phone MARLIN GALVAN Unavailable PROBLEMS Type Condition ICD9-CM Code FRM35-KX Code Onset Dates Condition Status SNOMED Code Problem Chronic prescription opiate use Z79.891 Active 587063544 Problem Tear of left rotator cuff, unspecified tear extent M75.102 Active 2479097 Problem Left shoulder pain, unspecified chronicity M25.512 Active 74882971 Problem Personal history of nicotine dependence Z87.891 Active 316952977 Problem Essential hypertension I10 Active 64101324 Problem Welcome to Medicare preventive visit Z00.00 Active 881347537 Problem Rheumatoid arthritis, involving unspecified site, unspecified rheumatoid factor presence M06.9 Active 62574328 Problem Dupuytren's contracture of hand M72.0 Active 938954863 Problem Hypotestosteronism E34.9 Active 2326283038457 Problem Erectile dysfunction, unspecified erectile dysfunction type N52.9 Active 189452706 Problem Claustrophobia F40.240 Active 44152986 Problem Hypogonadism in male E29.1 Active 63529482 Problem Pure hypercholesterolemia E78.00 Active 744093654 Problem Moderate single current episode of major depressive disorder F32.1 Active 89096042 Problem PVD (peripheral vascular disease) I73.9 Active 150156529 Problem Primary osteoarthritis, unspecified site M19.91 Active 913661669 Problem Primary osteoarthritis, 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 Active 98703907 Problem Anxiety F41.9 Active 02246443 Problem Right leg claudication I73.9 Active 649629041 Problem Lumbago with sciatica, left side M54.42 Active 068210709 Problem Hyperlipidemia, unspecified hyperlipidemia type E78.5 Active 57752645 Problem Lumbago with sciatica, right side M54.41 Active [id number] ALLERGIES No Information ENCOUNTERS Encounter Location Date [facility] [address] [id number] [id number] Sep, [address] [id number][place] [id number] Jul, Hyperglycemia R73.9 and Pure hypercholesterolemia E78.00 [facility] [address] [facility] [id number][place] [address] Jul, Hyperlipidemia, unspecified hyperlipidemia type E78.5 [facility] [address] [id number][place] [id number] 15 Jul, 2018 Personal history of nicotine dependence Z87.891 [facility] [address] [id number][place] [id number] 13 Jul, 2018 Welcome to Medicare preventive visit Z00.00 ; Pure hypercholesterolemia E78.00 ; Hyperlipidemia, unspecified hyperlipidemia type E78.5 ; Personal history of nicotine dependence Z87.891 ; Rheumatoid arthritis, involving unspecified site, unspecified rheumatoid factor presence M06.9 and Encounter for immunization Z23 [facility] [address] [id number][place] [id number] Apr, [facility] [address] [id number][place] [id number] Mar, Hypotestosteronism E34.9 [facility] [place] [address] [facility] [id number][place] [id number] Mar, Claustrophobia F40.240 [facility] [address] [place] [address] AVE [id number], [place] [id number] Mar, Hypotestosteronism E34.9 [facility] [address] [facility] [id number][place] [address] Mar, Encounter for pre-operative laboratory testing Z01.812 [facility] [facility] [address] [id number][place] [id number] Mar, Acute otitis externa of right ear, unspecified type H60.501 ; Hypotestosteronism E34.9 and Encounter for pre-operative laboratory testing Z01.[address] [facility] [address] [id number] [place] [id number] Mar, [facility] [address] [id number] [place] [address] Mar, Hypogonadism in male E29.1 and Hypotestosteronism E34.[address] [facility] [address] [id number] [place] [id number] Mar, Acute otitis externa of right ear, unspecified type H60.[address] [facility] [address] [id number][place] [id number] Mar, Hypotestosteronism E34.[address] [facility] [address] [id number], [place] [id number] Feb, [facility] [address] [address] [id number], [place] [address] Feb, PVD (peripheral vascular disease) I73.9 ; Pure hypercholesterolemia E78.00 and Primary osteoarthritis, unspecified site M19.[address] [facility] [address] [id number], [place] [address] Feb, Hypotestosteronism E34.[address] [facility] [address] [id number][place] [id number] Feb, Upper respiratory infection, viral J06.[address] [facility] [address] [id number], [place] [id number] Feb, Hypotestosteronism E34.9 [facility] [address] [id number][place] [id number] January, [facility] [address] [id number], [place] [id number] January, Hypotestosteronism E34.[address] [facility] [address] [id number], [place] [id number] January, Hypotestosteronism E34.9 [facility] [address] [id number], [place] [id number] Dec, [facility] [address] [id number], [place] [id number] Dec, Erectile dysfunction, unspecified erectile dysfunction type N52.9 [facility] [place] [address] [facility] [id number], [place] [id number] Dec, [facility] [place] [address] [id number], [place] [address] Dec, Pre-operative cardiovascular examination Z01.810 ; PVD (peripheral vascular disease) I73.9 ; Anxiety F41.9 ; Rheumatoid arthritis, involving unspecified site, unspecified rheumatoid factor presence M06.9 ; Essential hypertension I10 ; Hyperlipidemia, unspecified hyperlipidemia type E78.5 and Hypotestosteronism E34.9 [facility] [address] [id number], [place] [id number] Dec, [facility] [id number], [place] [id number] Dec, Erectile dysfunction, unspecified erectile dysfunction type N52.9 and Hypotestosteronism E34.9 [facility] [address] [id number], [place] [id number] Dec, Hypotestosteronism E34.[address] [id number], [place] [id number] Nov, [facility] [address]00565100[place] [address] Nov, Hypotestosteronism E34.[address] [id number], [place] [address] Nov, Pure hypercholesterolemia E78.00 and Primary osteoarthritis, unspecified site M19.91 [facility] [id number], [place] [id number] Nov, [facility] [address] [facility] [id number], [place] [address] Nov, Tear of left glenoid labrum, subsequent encounter S43.432D [facility] [address] [id number] [place] [id number] 15 Nov, 2017 Hypotestosteronism E34.9 [facility] [address] [id number] [place] [id number] Nov, [facility] [address] [id number] [place] [address] 14 Nov, [address] [facility] [address] [id number] [place] [address] Nov, Erectile dysfunction, unspecified erectile dysfunction type N52.9 [facility] [address] [id number] [place] [address] Nov, Erectile dysfunction, unspecified erectile dysfunction type N52.9 [facility] [address] [id number], [place] [id number] Nov, Viral upper respiratory tract infection J06.9 and Erectile dysfunction, unspecified erectile dysfunction type N52.9 [facility] [address] [id number], [place] [id number] Oct, [facility] [address] [id number], [place] [id number] Oct, [facility] [address] [id number], [place] [address] Oct, Fall on same level due to nature of surface, initial encounter W18.39XA and Erectile dysfunction, unspecified erectile dysfunction type N52.9 [facility] [address] [id number] [address] Sep, [facility] [address]00565100[place], [place] [address] Sep, Tear of left rotator cuff, unspecified tear extent M75.102 and Primary osteoarthritis, 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 [facility] [address] [id number] [address] Aug, Primary osteoarthritis, unspecified site M19.91 [place] [address] [id number], [place] [address] Jul, [place] [id number] [place] [address] Jul, Primary osteoarthritis, unspecified site M19.91 [place] [address] [place] [address] Jul, Lumbago with sciatica, right side M54.41 [place] [address] [place] [address] Jul, Primary osteoarthritis, 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 and Injury of left rotator cuff, subsequent encounter S46.002D [place] [address] [place] [address]9 Jul, [place] [id number] [place] [address] 2697 Jul, [place] [id number] [place] [address]658 Jul, [place] [address] [place] [address] Jul, Lumbago with sciatica, left side M54.42 ; Lumbago with sciatica, right side M54.41 ; Left shoulder pain, unspecified chronicity M25.512 and Essential hypertension I10 [place] [address] [place] [address] Jun, Lumbago with sciatica, left side M54.42 ; Lumbago with sciatica, right side M54.41 ; Left shoulder pain, unspecified chronicity M25.512 ; Essential hypertension I10 ; Heart murmur previously undiagnosed R01.1 ; Overweight E66.3 ; Anxiety F41.9 and Chronic prescription opiate use Z79.891 [place] [address] [place] [address]- [address]31 Jun, Primary osteoarthritis, unspecified site M19.91 [place] [id number] [place] [address]- [address]38 Jun, [place] [id number] [place] [address]- [address] May, Primary osteoarthritis, unspecified site M19.91 [place] [address] [place] [address]- 8801 May, Injury of left rotator cuff, subsequent encounter S46.002D [place] [address] [place] [address] 5[address]19- 5915 May, [place] [address] [place] [address] 71418- 4867 Apr, [place] [address] [place] [address] 79212- 9818 Apr, PVD (peripheral vascular disease) I73.9 ; Right leg claudication I73.9 ; Hyperlipidemia, unspecified hyperlipidemia type E78.5 ; Occlusion of femoropopliteal bypass graft, 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 and Essential hypertension I10 [place] [id number] [place] [address] 9[address]- 2346 Apr, Left shoulder pain, unspecified chronicity M25.512 [place] [address] [place] [address] 25913- 5593 Mar, Left shoulder pain, unspecified chronicity M25.512 [place] [address] [place] [address] 81039- 5200 Mar, [place] [id number] [place] [address] 34920- 6246 Mar, [place] [address] [place] [address] 24374- 4210 Mar, Dupuytren's contracture of hand M72.0 ; Essential hypertension I10 ; Pure hypercholesterolemia E78.00 ; Primary osteoarthritis, unspecified site M19.91 ; PVD (peripheral vascular disease) I73.9 and Moderate single current episode of major depressive disorder F32.1 [facility] [address] [facility] [id number][place] [address] 29 Feb, 2017 Dental examination Z01.20 and Dental caries K02.9 [facility] [address] [place] [address] 19016- 5976 Feb, Primary osteoarthritis, unspecified site M19.91 [place] [id number] [place] [address] 99546- 7775 Feb, [place] [address] [place] [address] 42806- 6250 Feb, [place] [address] [place] [address] 43339- 2210 Nov, [place] [id number] [place] [address] 54695- 5557 Nov, Dupuytren's contracture of hand M72.0 ; Pure hypercholesterolemia E78.00 ; Essential hypertension I10 ; PVD (peripheral vascular disease) I73.9 ; Primary osteoarthritis, unspecified site M19.91 and Rheumatoid arthritis, involving unspecified site, unspecified rheumatoid factor presence M06.9 [place] [address] [place] [address] 97615- 4601 Nov, IMMUNIZATIONS No Known Immunizations SOCIAL HISTORY Never Assessed REASON FOR VISIT Test results PLAN OF CARE VITAL SIGNS MEDICATIONS Medication Instructions Dosage Frequency Start Date End Date Duration Status Aspirin Adult Low Dose 81 MG Orally Once a day 1 tablet 24h Active Lipitor 20 mg Orally Once a day 1 tablet 24h 90 days Active Lisinopril-Hydrochlorothiazide 10-12.5 MG Orally Once a day 1 tablet 24h 90 days Active Cyclobenzaprine HCl 10 mg Orally Three times a day 1 tablet as needed 8h Active Fenofibrate 48 MG Orally Once a day 1 tablet 24h Jul, 90 days Active Plavix 75 MG Orally Once a day 1 tablet 24h Active RESULTS No Results PROCEDURES No Known procedures INSTRUCTIONS MEDICATIONS ADMINISTERED No Known Medications MEDICAL (GENERAL) HISTORY Type Description Date Medical History dupuytren's contracture-hand bilateral Medical History hypertension Medical History hyperlipidemia Medical History Arthritis Medical History peripheral vascular disease Medical History rheumatoid tdwyfhuzh-ebqdoyiihayo-ezjldrng AGAPITO and Rheum factor 2016 Medical History left shoulder arthritis Medical History Pituitary Microadenoma Per Dr. Gandhi Consult Note 2018 Surgical History cervical fusion C3-C7 [facility] 05/2015 Surgical History dupuytren's contracture-bilateral hands Surgical History Artery bypass in right leg Surgical History Occipital bone surgery right side Surgical History surgery near right eye Surgical History [place] Left shoulder replacement 01/13/2018 Surgical History colonoscopy 2012 Hospitalization History Surgery(s) only Hospitalization History [facility] [place]- Cold Symptoms 03/03/2018
--- OUTSIDE RECORDS SUMMARY | 2018-12-22 13:50 | XMS REPORT ---
Author Author SINDY LANDAVERDE Organization [facility] Address [address] [place] [address] Care Team Providers Care Web Consultant Name Role Phone SINDY LANDAVERDE Unavailable PROBLEMS Type Condition ICD9-CM Code [id number] Code Onset Dates Condition Status SNOMED Code Problem Lumbago with sciatica, left side M54.42 Active 034041251 Problem Chronic prescription opiate use Z79.891 Active 540976720 Problem Lumbago with sciatica, right side M54.41 Active 843614235534994 Problem Claustrophobia F40.240 Active 11133067 Problem Essential hypertension I10 Active 65800031 Problem Hypogonadism in male E29.1 Active 61895984 Problem Tear of left rotator cuff, unspecified tear extent M75.102 Active 5017748 Problem Left shoulder pain, unspecified chronicity M25.512 Active 62855668 Problem Hypotestosteronism E34.9 Active 6008051696221 Problem Erectile dysfunction, unspecified erectile dysfunction type N52.9 Active 522312469 Problem Primary osteoarthritis, unspecified site M19.91 Active 484402647 Problem Dupuytren's contracture of hand M72.0 Active 944919896 Problem PVD (peripheral vascular disease) I73.9 Active 508232780 Problem Rheumatoid arthritis, involving unspecified site, unspecified rheumatoid factor presence M06.9 Active 83754093 Problem Right leg claudication I73.9 Active 330243382 Problem Hyperlipidemia, unspecified hyperlipidemia type E78.5 Active 66338381 Problem Pure hypercholesterolemia E78.00 Active 151148481 Problem Primary osteoarthritis, 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 Active 33055705 Problem Moderate single current episode of major depressive disorder F32.1 Active 08267405 Problem Anxiety F41.9 Active 15103778 ALLERGIES No Information ENCOUNTERS Encounter Location Date Diagnosis [address] [id number] [id number] Apr, [facility] [address] [id number][place] [id number] Mar, Hypotestosteronism E34.9 [facility] [address] [facility] [id number][place] [id number] Mar, Claustrophobia F40.[address] [facility] [address] [id number][place] [id number] Mar, Hypotestosteronism E34.9 [facility] [address] [facility] [id number] [place] [address] Mar, Encounter for pre-operative laboratory testing Z01.[address] [facility] [address] [id number][place] [id number] Mar, Acute otitis externa of right ear, unspecified type H60.501 ; Hypotestosteronism E34.9 and Encounter for pre-operative laboratory testing Z01.[address] [facility] [address] [id number][place] [id number] Mar, [facility] [address] [id number], [place] [id number] Mar, Hypogonadism in male E29.1 and Hypotestosteronism E34.[address] [facility] [address] [id number], [place] [address] Mar, Acute otitis externa of right ear, unspecified type H60.[address] [facility] [address] [id number], [place] [id number] Mar, Hypotestosteronism E34.9 [facility] [address] [id number][place] [id number] Feb, [facility] [address] [facility] [id number][place] [id number] Feb, PVD (peripheral vascular disease) I73.9 ; Pure hypercholesterolemia E78.00 and Primary osteoarthritis, unspecified site M19.[address] [facility] [address] [id number], [place] [id number] Feb, Hypotestosteronism E34.9 [facility] [address] [id number], [place] [address] Feb, Upper respiratory infection, viral J06.[address] [facility] [address] [id number], [place] [id number] Feb, Hypotestosteronism E34.9 [facility] [address]65[address] [id number] January, [facility] [address] [id number], [place] [address] January, Hypotestosteronism E34.9 [facility] [address] [facility] [address] [id number], [place] [id number] January, Hypotestosteronism E34.9 [facility] [address]00565100[place] [id number] Dec, [facility] [address] [facility] [address] [id number], [place] [id number] Dec, Erectile dysfunction, unspecified erectile dysfunction type N52.9 [facility] [address]65100[place] [address] Dec, [facility] [address]65100[place] [address] Dec, Pre-operative cardiovascular examination Z01.810 ; PVD (peripheral vascular disease) I73.9 ; Anxiety F41.9 ; Rheumatoid arthritis, involving unspecified site, unspecified rheumatoid factor presence M06.9 ; Essential hypertension I10 ; Hyperlipidemia, unspecified hyperlipidemia type E78.5 and Hypotestosteronism E34.[address] [facility] [address] [id number], [place] [id number] Dec, [facility] [address] [id number], [place] [address] Dec, Erectile dysfunction, unspecified erectile dysfunction type N52.9 and Hypotestosteronism E34.[address] [facility] [address] [id number] [place] [address] Dec, Hypotestosteronism E34.9 [facility] [address] [facility] [id number][place] [id number] Nov, [facility] [address] [facility] [id number] [place] [address] Nov, Hypotestosteronism E34.9 [facility] [address] [facility] [id number][place] [id number] Nov, Pure hypercholesterolemia E78.00 and Primary osteoarthritis, unspecified site M19.91 [facility] [address] [id number], [place] [id number] Nov, [facility] [address] [facility] [id number], [place] [address] Nov, Tear of left glenoid labrum, subsequent encounter S43.432D [facility] [address] [id number], [place] [address] Nov, Hypotestosteronism E34.9 [facility] [address] [id number], [place] [address] Nov, [facility] [address] [id number], [place] [id number] Nov, [facility] [address] [id number], [place] [id number] Nov, Erectile dysfunction, unspecified erectile dysfunction type N52.9 [facility] [address] [id number], [place] [id number] Nov, Erectile dysfunction, unspecified erectile dysfunction type N52.9 [facility] [address] [id number] [place] [address] 05 Nov, 2017 Viral upper respiratory tract infection J06.9 and Erectile dysfunction, unspecified erectile dysfunction type N52.[address] [facility] [address] [id number] [place] [address] Oct, [facility] [address] [id number], [place] [address] Oct, [facility] [address] [id number], [place] [address] Oct, Fall on same level due to nature of surface, initial encounter W18.39XA and Erectile dysfunction, unspecified erectile dysfunction type N52.9 [facility] [id number] [place] [address] Sep, [facility] [id number] [place] [address]004[address]83 Sep, Tear of left rotator cuff, unspecified tear extent M75.102 and Primary osteoarthritis, 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 [facility] [id number] [place] [address] Aug, Primary osteoarthritis, unspecified site M19.91 [facility] [id number] [place] [address]11[address] Jul, [facility] [id number] [place] [address]170[address] Jul, Primary osteoarthritis, unspecified site M19.91 [facility] [id number] [place] [address] 17489- 3771 Jul, Lumbago with sciatica, right side M54.41 [facility] [id number] [place] [address] 92484- 8795 Jul, Primary osteoarthritis, 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 and Injury of left rotator cuff, subsequent encounter S46.002D [facility] [id number] [place] [address] 92165- 5924 Jul, [facility] [id number] [place] [address] 74856- 2959 Jul, [facility] [id number] [place] [address] 99863- 4211 Jul, [facility] [address] [address] Jul, Lumbago with sciatica, left side M54.42 ; Lumbago with sciatica, right side M54.41 ; Left shoulder pain, unspecified chronicity M25.512 and Essential hypertension I10 [id number] [place] [address] 76771- 8413 Jun, Lumbago with sciatica, left side M54.42 ; Lumbago with sciatica, right side M54.41 ; Left shoulder pain, unspecified chronicity M25.512 ; Essential hypertension I10 ; Heart murmur previously undiagnosed R01.1 ; Overweight E66.3 ; Anxiety F41.9 and Chronic prescription opiate use Z79.891 [place] [place] [id number] [place] [address]668[address] 6393 Jun, Primary osteoarthritis, unspecified site M19.91 [address] [place] [id number] [place] [address] 61719- 4600 Jun, [id number] [place] [address] 62454- 2744 May, Primary osteoarthritis, unspecified site M19.91 [address] [id number] [place] [address] 48338- 9119 May, Injury of left rotator cuff, subsequent encounter S46.002D [place] [id number] [place] [address] 82869- 1306 May, [id number] [place] [address] 18379- 2623 Apr, [address] [address] Apr, PVD (peripheral vascular disease) I73.9 ; Right leg claudication I73.9 ; Hyperlipidemia, unspecified hyperlipidemia type E78.5 ; Occlusion of femoropopliteal bypass graft, 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 and Essential hypertension I10 [address] [place] [address] Apr, Left shoulder pain, unspecified chronicity M25.512 [facility] [id number] [place] [address] 90021- 1322 Mar, Left shoulder pain, unspecified chronicity M25.512 [facility] [id number] [place] [address] 32011- 7691 Mar, [id number] [place] [address] 71062- 8809 Mar, [facility] [id number] [place] [address] 59424- 9042 Mar, Dupuytren's contracture of hand M72.0 ; Essential hypertension I10 ; Pure hypercholesterolemia E78.00 ; Primary osteoarthritis, unspecified site M19.91 ; PVD (peripheral vascular disease) I73.9 and Moderate single current episode of major depressive disorder F32.1 [facility] [id number] [place] [id number] Feb, Dental examination Z01.20 and Dental caries K02.9 [place] [id number] [place] [address] 90638- 4995 Feb, Primary osteoarthritis, unspecified site M19.91 [facility] [address] [place] [address] 74374- 6671 Feb, [facility] [address] [place] [address] 50228- 7576 Feb, [facility] [id number] [place] [address] 69544- 7915 Nov, [facility] [id number] [place] [address] 05767- 8423 Nov, Dupuytren's contracture of hand M72.0 ; Pure hypercholesterolemia E78.00 ; Essential hypertension I10 ; PVD (peripheral vascular disease) I73.9 ; Primary osteoarthritis, unspecified site M19.91 and Rheumatoid arthritis, involving unspecified site, unspecified rheumatoid factor presence M06.9 [facility] [address] [facility] [id number] [place] [address] Nov, IMMUNIZATIONS Vaccine Route Administration Date Status TESTOSTERONE (PT'S OWN) IM Intramuscular April 17, 2018 Administered SOCIAL HISTORY Never Assessed REASON FOR VISIT Injection. Bar lund PLAN OF CARE VITAL SIGNS MEDICATIONS Unknown Medications RESULTS No Results PROCEDURES Procedure Date Ordered Result Body Site TESTOSTERONE (PT'S OWN) April 17, 2018 THER/PROPH/DIAG INJ, SC/IM April 17, 2018 INSTRUCTIONS MEDICATIONS ADMINISTERED No Known Medications [...] History surgery near right eye Surgical History [facility] Left shoulder replacement 01/13/2018 Hospitalization History Surgery(s) only Hospitalization History [facility] [place]- Cold Symptoms 03/03/2018
--- OUTSIDE RECORDS SUMMARY | 2018-12-22 13:50 | XMS REPORT ---
Author Author SINDY LANDAVERDE Organization [facility] Address [address] [place] [address] Care Team Providers Care Tire Bladder Maker Name Role Phone SINDY LANDAVERDE Unavailable PROBLEMS Type Condition ICD9-CM Code [id number] Code Onset Dates Condition Status SNOMED Code Problem Lumbago with sciatica, left side M54.42 Active 920639649 Problem Chronic prescription opiate use Z79.891 Active 071291657 Problem Lumbago with sciatica, right side M54.41 Active 746072097991533 Problem Claustrophobia F40.240 Active 02210306 Problem Essential hypertension I10 Active 85488124 Problem Hypogonadism in male E29.1 Active 42115511 Problem Tear of left rotator cuff, unspecified tear extent M75.102 Active 2464869 Problem Left shoulder pain, unspecified chronicity M25.512 Active 73089169 Problem Hypotestosteronism E34.9 Active 6228849542738 Problem Erectile dysfunction, unspecified erectile dysfunction type N52.9 Active 652251786 Problem Primary osteoarthritis, unspecified site M19.91 Active 923283732 Problem Dupuytren's contracture of hand M72.0 Active 772528426 Problem PVD (peripheral vascular disease) I73.9 Active 945996725 Problem Rheumatoid arthritis, involving unspecified site, unspecified rheumatoid factor presence M06.9 Active 62999472 Problem Right leg claudication I73.9 Active 636492068 Problem Hyperlipidemia, unspecified hyperlipidemia type E78.5 Active 51347620 Problem Pure hypercholesterolemia E78.00 Active 010124909 Problem Primary osteoarthritis, 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 Active 12228000 Problem Moderate single current episode of major depressive disorder F32.1 Active 56154454 Problem Anxiety F41.9 Active 04072187 ALLERGIES No Information ENCOUNTERS Encounter Location Date Diagnosis [address] [id number] [id number] Apr, [facility] [address] [id number] [id number] Mar, Hypotestosteronism E34.9 [facility] [address] [facility] [id number][place] [id number] Mar, Claustrophobia F40.[address] [facility] [address] [id number][place] [id number] Mar, Hypotestosteronism E34.9 [facility] [address] [facility] [id number] [place] [address] Mar, Encounter for pre-operative laboratory testing Z01.[address] [facility] [address] [id number][place] [address] Mar, Acute otitis externa of right ear, unspecified type H60.501 ; Hypotestosteronism E34.9 and Encounter for pre-operative laboratory testing Z01.[address] [facility] [address] [id number][place] [id number] Mar, [facility] [address] [id number][place] [id number] Mar, Hypogonadism in male E29.1 and Hypotestosteronism E34.[address] [facility] [address] [id number][place] [id number] Mar, Acute otitis externa of right ear, unspecified type H60.[address] [facility] [address] [id number][place] [id number] Mar, Hypotestosteronism E34.9 [facility] [address] [id number][place] [id number] Feb, [facility] [address] [facility] [id number][place] [id number] Feb, PVD (peripheral vascular disease) I73.9 ; Pure hypercholesterolemia E78.00 and Primary osteoarthritis, unspecified site M19.[address] [facility] [address] [id number][place] [id number] Feb, Hypotestosteronism E34.9 [facility] [address] [id number][place] [id number] Feb, Upper respiratory infection, viral J06.[address] [facility] [address] [id number][place] [id number] Feb, Hypotestosteronism E34.9 [facility] [address]65[address] [id number] January, [facility] [address] [id number], [place] [address] January, Hypotestosteronism E34.9 [facility] [address] [facility] [address] [id number][place] [id number] January, Hypotestosteronism E34.9 [facility] [address]00565100[place] [id number] Dec, [facility] [address] [facility] [address] [id number], [place] [id number] Dec, Erectile dysfunction, unspecified erectile dysfunction type N52.9 [facility] [address]65100[place] [address] Dec, [facility] [address]65100[place] [address] Dec, Pre-operative cardiovascular examination Z01.810 ; PVD (peripheral vascular disease) I73.9 ; Anxiety F41.9 ; Rheumatoid arthritis, involving unspecified site, unspecified rheumatoid factor presence M06.9 ; Essential hypertension I10 ; Hyperlipidemia, unspecified hyperlipidemia type E78.5 and Hypotestosteronism E34.[address] [facility] [address] [id number], [place] [id number] Dec, [facility] [address] [id number], [place] [id number] Dec, Erectile dysfunction, unspecified erectile dysfunction type N52.9 and Hypotestosteronism E34.[address] [facility] [address] [id number] [place] [id number] Dec, Hypotestosteronism E34.9 [facility] [place] [address] [facility] [id number][place] [id number] Nov, [facility] [address] [facility] [id number] [place] [address] Nov, Hypotestosteronism E34.9 [facility] [place] [address] [facility] [id number][place] [id number] Nov, Pure hypercholesterolemia E78.00 and Primary osteoarthritis, unspecified site M19.91 [facility] [address] [id number], [place] [id number] Nov, [facility] [address] [facility] [id number] [address] Nov, Tear of left glenoid labrum, subsequent encounter S43.432D [facility] [address] [id number], [place] [address] Nov, Hypotestosteronism E34.9 [facility] [address] [id number], [place] [id number] Nov, [facility] [address] [id number], [place] [id number] Nov, [facility] [address] [id number], [place] [id number] Nov, Erectile dysfunction, unspecified erectile dysfunction type N52.9 [facility] [address] [id number], [place] [address] Nov, Erectile dysfunction, unspecified erectile dysfunction type N52.9 [facility] [address] [id number] [place] [address] Nov, 2017 Viral upper respiratory tract infection J06.9 and Erectile dysfunction, unspecified erectile dysfunction type N52.[address] [facility] [address] [id number] [place] [id number] Oct, [facility] [address] [id number], [place] [address] Oct, [facility] [address] [id number], [place] [id number] Oct, Fall on same level due to nature of surface, initial encounter W18.39XA and Erectile dysfunction, unspecified erectile dysfunction type N52.9 [facility] [id number] [place] [address] Sep, [facility] [id number] [place] [address] Sep, Tear of left rotator cuff, unspecified tear extent M75.102 and Primary osteoarthritis, 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 [facility] [id number] [place] [address] Aug, Primary osteoarthritis, unspecified site M19.91 [facility] [id number] [place] [address] Jul, [facility] [id number] [place] [address] Jul, Primary osteoarthritis, unspecified site M19.91 [facility] [id number] [place] [address]16- 6208 Jul, Lumbago with sciatica, right side M54.41 [facility] [id number] [place] [address] 5614 Jul, Primary osteoarthritis, 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 and Injury of left rotator cuff, subsequent encounter S46.002D [facility] [id number] [place] [address]76- [address]181 Jul, [facility] [id number] [place] [address]293[address] 2040 Jul, [facility] [id number] [place] [address] Jul, [facility] [address]7211KS [place] [address] Jul, Lumbago with sciatica, left side M54.42 ; Lumbago with sciatica, right side M54.41 ; Left shoulder pain, unspecified chronicity M25.512 and Essential hypertension I10 [place] [id number] [place] [address] Jun, Lumbago with sciatica, left side M54.42 ; Lumbago with sciatica, right side M54.41 ; Left shoulder pain, unspecified chronicity M25.512 ; Essential hypertension I10 ; Heart murmur previously undiagnosed R01.1 ; Overweight E66.3 ; Anxiety F41.9 and Chronic prescription opiate use Z79.891 [place] [id number] [place] [address]38[address] Jun, Primary osteoarthritis, unspecified site M19.91 [place] [id number] [place] [address] Jun, [place] [id number] [place] [address]78- 1416 May, Primary osteoarthritis, unspecified site M19.91 [place] [id number] [place] [address] 28456- 6861 May, Injury of left rotator cuff, subsequent encounter S46.002D [place] [id number] [place] [address] 07931- 9938 May, [place] [id number] [place] [address]256[address] 8311 Apr, [place] [address] [address] Apr, PVD (peripheral vascular disease) I73.9 ; Right leg claudication I73.9 ; Hyperlipidemia, unspecified hyperlipidemia type E78.5 ; Occlusion of femoropopliteal bypass graft, 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 and Essential hypertension I10 [place] [address] [place] [address] Apr, Left shoulder pain, unspecified chronicity M25.512 [facility] [id number] [place] [address] 67023- 1401 Mar, Left shoulder pain, unspecified chronicity M25.512 [facility] [id number] [place] [address] 78554- 9520 Mar, [place] [id number] [place] [address]17- 9494 Mar, [facility] [id number] [place] [address] 01404- 7269 Mar, Dupuytren's contracture of hand M72.0 ; Essential hypertension I10 ; Pure hypercholesterolemia E78.00 ; Primary osteoarthritis, unspecified site M19.91 ; PVD (peripheral vascular disease) I73.9 and Moderate single current episode of major depressive disorder F32.1 [facility] [id number] [place] [id number] Feb, Dental examination Z01.20 and Dental caries K02.9 [place] [id number] [place] [address] 34507- 2176 Feb, Primary osteoarthritis, unspecified site M19.91 [facility] [address] [place] [address] 79219- 2620 Feb, [facility] [address] [place] [address] 91140- 5926 Feb, [facility] [id number] [place] [address] 17819- 0100 Nov, [facility] [id number] [place] [address] 44477- 2214 Nov, Dupuytren's contracture of hand M72.0 ; Pure hypercholesterolemia E78.00 ; Essential hypertension I10 ; PVD (peripheral vascular disease) I73.9 ; Primary osteoarthritis, unspecified site M19.91 and Rheumatoid arthritis, involving unspecified site, unspecified rheumatoid factor presence M06.9 [facility] [address] [facility] [id number] [place] [address] Nov, IMMUNIZATIONS No Known Immunizations SOCIAL HISTORY Never Assessed REASON FOR VISIT Waiting for call back PLAN OF CARE VITAL SIGNS MEDICATIONS Unknown Medications RESULTS No Results PROCEDURES No Known procedures INSTRUCTIONS MEDICATIONS ADMINISTERED No Known Medications MEDICAL (GENERAL) HISTORY Type Description Date Medical History dupuytren's contracture-hand bilateral Medical History hypertension Medical History hyperlipidemia Medical History Arthritis Medical History peripheral vascular disease Medical History rheumatoid arthritis Surgical History cervical fusion C3-C7 -[facility] 05/2015 Surgical History dupuytren's contracture-bilateral hands Surgical History Artery bypass in right leg Surgical History Occipital bone surgery right side Surgical History surgery near right eye Surgical History [facility] Left shoulder replacement 01/13/2018 Hospitalization History Surgery(s) only Hospitalization History [facility] [place]- Cold Symptoms 03/03/2018
--- OUTSIDE RECORDS SUMMARY | 2018-12-22 13:50 | XMS REPORT ---
Author Author BRIDGETBEBETO [facility]LIN [facility] Address [address] [place] [address] Care Team Providers Care Cold Working Supervisor Name Role Phone MARLIN GALVAN Unavailable PROBLEMS Type Condition ICD9-CM Code [id number] Code Onset Dates Condition Status SNOMED Code Problem Chronic prescription opiate use Z79.891 Active 917860220 Problem Tear of left rotator cuff, unspecified tear extent M75.102 Active 7898750 Problem Left shoulder pain, unspecified chronicity M25.512 Active 22817930 Problem Personal history of nicotine dependence Z87.891 Active 060505774 Problem Essential hypertension I10 Active 81120265 Problem Welcome to Medicare preventive visit Z00.00 Active 717036532 Problem Rheumatoid arthritis, involving unspecified site, unspecified rheumatoid factor presence M06.9 Active 99448220 Problem Dupuytren's contracture of hand M72.0 Active 994487245 Problem Hypotestosteronism E34.9 Active 2556505955252 Problem Erectile dysfunction, unspecified erectile dysfunction type N52.9 Active 709097238 Problem Claustrophobia F40.240 Active 23429624 Problem Hypogonadism in male E29.1 Active 50969370 Problem Pure hypercholesterolemia E78.00 Active 898715253 Problem Moderate single current episode of major depressive disorder F32.1 Active 81363640 Problem PVD (peripheral vascular disease) I73.9 Active 935288258 Problem Primary osteoarthritis, unspecified site M19.91 Active 427095296 Problem Primary osteoarthritis, 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 Active 50840441 Problem Anxiety F41.9 Active 21333502 Problem Right leg claudication I73.9 Active 547492050 Problem Lumbago with sciatica, left side M54.42 Active 419000368 Problem Hyperlipidemia, unspecified hyperlipidemia type E78.5 Active 13873650 Problem Lumbago with sciatica, right side M54.41 Active [id number] ALLERGIES Substance Reaction Event Type Date Status Niacin Unknown Drug Allergy Jul, Active ENCOUNTERS Encounter Location Date [facility] [address] [id number] [id number] Sep, [facility] [address] [id number][place] [id number] Jul, Welcome to Medicare preventive visit Z00.00 ; Pure hypercholesterolemia E78.00 ; Hyperlipidemia, unspecified hyperlipidemia type E78.5 ; Personal history of nicotine dependence Z87.891 ; Rheumatoid arthritis, involving unspecified site, unspecified rheumatoid factor presence M06.9 and Encounter for immunization Z23 [facility] [address] [facility] [address] [id number][place] [id number] Apr, [facility] [address] [facility] [address] [id number][place] [id number] Mar, Hypotestosteronism E34.9 [facility] [place] [address] [facility] [id number][place] [id number] Mar, Claustrophobia F40.240 [facility] [address] [id number][place] [id number] Mar, Hypotestosteronism E34.9 [facility] [place] [address] [facility] [id number] [place] [address] Mar, Encounter for pre-operative laboratory testing Z01.812 [facility] [address] [facility] [address] [id number], [place] [id number] Mar, Acute otitis externa of right ear, unspecified type H60.501 ; Hypotestosteronism E34.9 and Encounter for pre-operative laboratory testing Z01.812 [facility] [address] [facility] [address] [id number], [place] [id number] Mar, [facility] [address] [id number], [place] [id number] Mar, Hypogonadism in male E29.1 and Hypotestosteronism E34.9 [facility] [address] [id number], [place] [id number] Mar, Acute otitis externa of right ear, unspecified type H60.501 [facility] [address] [id number][place] [id number] Mar, Hypotestosteronism E34.9 [facility] [address] [id number], [place] [id number] Feb, [facility] [place] [id number], [place] [id number] Feb, PVD (peripheral vascular disease) I73.9 ; Pure hypercholesterolemia E78.00 and Primary osteoarthritis, unspecified site M19.91 [facility] [address] [id number], [place] [id number] Feb, Hypotestosteronism E34.9 [facility] [address] [id number], [place] [id number] Feb, Upper respiratory infection, viral J06.9 [facility] [address] [id number], [place] [id number] Feb, Hypotestosteronism E34.9 [facility] [place] [address] [id number][place] [id number] January, [facility] [address] [id number], [place] [id number] January, Hypotestosteronism E34.9 [facility] [address] [id number], [place] [id number] January, Hypotestosteronism E34.9 [facility] [place] [address] [facility] [id number], [place] [id number] Dec, [facility] [address] [id number], [place] [id number] Dec, Erectile dysfunction, unspecified erectile dysfunction type N52.9 [facility] [place] [address] [id number], [place] [id number] Dec, [facility] [place] [address] [id number], [place] [id number] Dec, Pre-operative cardiovascular examination Z01.810 ; PVD (peripheral vascular disease) I73.9 ; Anxiety F41.9 ; Rheumatoid arthritis, involving unspecified site, unspecified rheumatoid factor presence M06.9 ; Essential hypertension I10 ; Hyperlipidemia, unspecified hyperlipidemia type E78.5 and Hypotestosteronism E34.9 [facility] [address] [id number] [place] [id number] Dec, [facility] [address] [id number] [place] [address] Dec, Erectile dysfunction, unspecified erectile dysfunction type N52.9 and Hypotestosteronism E34.9 [facility] [address] [id number], [place] [id number] Dec, Hypotestosteronism E34.9 [facility] [place] [id number], [place] [id number] Nov, [facility] [address]65100[address] [address] Nov, Hypotestosteronism E34.9 [facility] [place] [address]00565100[place], [place] [id number] Nov, Pure hypercholesterolemia E78.00 and Primary osteoarthritis, unspecified site M19.91 [facility] [address] [id number], [place] [id number] Nov, [facility] [address] [id number] [place] [address] Nov, Tear of left glenoid labrum, subsequent encounter S43.432D [facility] [address] [id number], [place] [id number] Nov, Hypotestosteronism E34.9 [facility] [address] [id number], [place] [id number] Nov, [facility] [address] [id number], [place] [id number] Nov, [facility] [address] [id number] [place] [id number] Nov, Erectile dysfunction, unspecified erectile dysfunction type N52.9 [facility] [place] [address] [facility] [address] [id number], [place] [id number] Nov, Erectile dysfunction, unspecified erectile dysfunction type N52.9 [facility] [address] [facility] [address] [id number], [place] [id number] Nov, Viral upper respiratory tract infection J06.9 and Erectile dysfunction, unspecified erectile dysfunction type N52.9 [facility] [place] [address] [facility] [address] [id number], [place] [id number] Oct, [facility] [address] [facility] [address] [id number], [place] [id number] Oct, [facility] [address] [id number], [place] [id number] Oct, Fall on same level due to nature of surface, initial encounter W18.39XA and Erectile dysfunction, unspecified erectile dysfunction type N52.9 [facility] [id number] [place] [address] Sep, [place] [id number] [place] [address] Sep, Tear of left rotator cuff, unspecified tear extent M75.102 and Primary osteoarthritis, 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 [facility] [id number] [place] [address] Aug, Primary osteoarthritis, unspecified site M19.91 [facility] [id number] [place] [address] Jul, [facility] [id number] [place] [address] Jul, Primary osteoarthritis, unspecified site M19.91 [facility] [id number] [place] [address] Jul, Lumbago with sciatica, right side M54.41 [facility] [address] [place] [address]251- [address] 16 Jul, 2017 Primary osteoarthritis, 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 and Injury of left rotator cuff, subsequent encounter S46.002D [facility] [id number] [place] [address] 48093- [address]12 Jul, [facility] [id number] [place] [address] 78798- 5[address] Jul, [facility] [id number] [place] [address]702- 1476 Jul, [place] [address] [address] Jul, Lumbago with sciatica, left side M54.42 ; Lumbago with sciatica, right side M54.41 ; Left shoulder pain, unspecified chronicity M25.512 and Essential hypertension I10 [place] [id number] [place] [address] 65342- 4868 Jun, Lumbago with sciatica, left side M54.42 ; Lumbago with sciatica, right side M54.41 ; Left shoulder pain, unspecified chronicity M25.512 ; Essential hypertension I10 ; Heart murmur previously undiagnosed R01.1 ; Overweight E66.3 ; Anxiety F41.9 and Chronic prescription opiate use Z79.891 [place] [id number] [place] [address]5814- 0708 Jun, Primary osteoarthritis, unspecified site M19.91 [facility] [id number] [place] [address] 70978- 3621 Jun, [facility] [id number] [place] [address] 95382- 79[address] May, Primary osteoarthritis, unspecified site M19.91 [facility] [id number] [place] [address] 17412- 2725 May, Injury of left rotator cuff, subsequent encounter S46.002D [place] [address] [place] [address] 67478- 5[address] May, [place] [id number] [place] [address] 91712- 7622 Apr, [place] [id number] [place] [address] 81689- 7164 Apr, PVD (peripheral vascular disease) I73.9 ; Right leg claudication I73.9 ; Hyperlipidemia, unspecified hyperlipidemia type E78.5 ; Occlusion of femoropopliteal bypass graft, 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 and Essential hypertension I10 [place] [id number] [place] [address] 07552- 0[address] Apr, Left shoulder pain, unspecified chronicity M25.512 [place] [id number] [place] [address] 46392- 1306 Mar, Left shoulder pain, unspecified chronicity M25.512 [place] [id number] [place] [address] 61014- 2279 Mar, [place] [id number] [place] [address] 65660- 8868 Mar, [place] [id number] [place] [address] 75388- 7204 Mar, Dupuytren's contracture of hand M72.0 ; Essential hypertension I10 ; Pure hypercholesterolemia E78.00 ; Primary osteoarthritis, unspecified site M19.91 ; PVD (peripheral vascular disease) I73.9 and Moderate single current episode of major depressive disorder F32.1 [facility] [address] [place] [id number] Feb, Dental examination Z01.20 and Dental caries K02.9 [place] [id number] [place] [address] 66902- 0626 Feb, Primary osteoarthritis, unspecified site M19.91 [place] [id number] [place] [address] 34944- 5963 Feb, [facility] [address] [facility] [id number] [place] [address] Feb, [facility] [address] [facility] [id number] [place] [address] Nov, [facility] [address] [facility] [id number] [place] [address] Nov, Dupuytren's contracture of hand M72.0 ; Pure hypercholesterolemia E78.00 ; Essential hypertension I10 ; PVD (peripheral vascular disease) I73.9 ; Primary osteoarthritis, unspecified site M19.91 and Rheumatoid arthritis, involving unspecified site, unspecified rheumatoid factor presence M06.9 [facility] [address] [facility] [id number] [place] [address] Nov, IMMUNIZATIONS Vaccine Route Administration Date Status FLULAVAL QUAD 0.5ML (6 MO & UP) 2018 IM Intramuscular Aug 01, 2018 Administered PCV 13 IM Intramuscular Aug 01, 2018 Administered SOCIAL HISTORY Never Assessed REASON FOR VISIT Medicare AWV-ADaniels lpn PLAN OF CARE Activity Details Follow Up 6 weeks Reason:snoring Pending Test CT Scan : Chest w/ Contrast VITAL SIGNS Height 69 in 2018-08-01 Weight 257.3 lbs 2018-08-01 Temperature 98.2 degrees Fahrenheit 2018-08-01 Heart Rate 88 bpm 2018-08-01 Respiratory Rate 18 2018-08-01 BMI 37.99 kg/m2 2018-08-01 Blood pressure systolic 130 mmHg 2018-08-01 Blood pressure diastolic 80 mmHg 2018-08-01 MEDICATIONS Medication Instructions Dosage Frequency Start Date [...] 1 tablet 24h 90 days Active RESULTS No Results PROCEDURES Procedure Date Ordered Result Body Site IMMUNIZATION ADMIN, EACH ADD (please include units) Aug 01, 2018 ADVNCD CARE PLAN 30 MIN Aug 01, 2018 [facility] VISIT IPPE/AWV Aug 01, 2018 ADMN FLU VAC NO FEE SCHED SAME DAY Aug 01, 2018 FLULAVAL QUAD 0.5ML (6 MO & UP) 2017Aug 01, 2018 SINGLE IMMUNIZATION ADMIN Aug 01, 2018 [facility] VISIT ESTABLISHED PATIENT Aug 01, 2018 INIT PREV PE LTD DUR 1ST 12 MOS MCR Aug 01, 2018 PCV 13 Aug 01, 2018 INSTRUCTIONS MEDICATIONS ADMINISTERED No Known Medications MEDICAL (GENERAL) HISTORY Type Description Date Medical History dupuytren's contracture-hand bilateral Medical History hypertension Medical History hyperlipidemia Medical History Arthritis Medical History peripheral vascular disease Medical History rheumatoid [id number] [place] and Rheum factor 2016 Medical History left shoulder arthritis Surgical History cervical fusion C3-C7 -[facility] 05/2015 Surgical History dupuytren's contracture-bilateral hands Surgical History Artery bypass in right leg Surgical History Occipital bone surgery right side Surgical History surgery near right eye Surgical History [place] Left shoulder replacement 01/13/2018 Surgical History colonoscopy 2012 Hospitalization History Surgery(s) only Hospitalization History [facility]- Cold Symptoms 03/03/2018
--- OUTSIDE RECORDS SUMMARY | 2018-12-22 13:51 | XMS REPORT ---
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 Name Role Phone SINDY LANDAVERDE Unavailable PROBLEMS Type Condition ICD9-CM Code GYE37-IE Code Onset Dates Condition Status SNOMED Code Problem Lumbago with sciatica, left side M54.42 Active 331822650 Problem Chronic prescription opiate use Z79.891 Active 925088080 Problem Lumbago with sciatica, right side M54.41 Active 370531635702189 Problem Claustrophobia F40.240 Active 12118806 Problem Essential hypertension I10 Active 41964547 Problem Hypogonadism in male E29.1 Active 88072759 Problem Tear of left rotator cuff, unspecified tear extent M75.102 Active 7853855 Problem Left shoulder pain, unspecified chronicity M25.512 Active 85527018 Problem Hypotestosteronism E34.9 Active 1524394896012 Problem Erectile dysfunction, unspecified erectile dysfunction type N52.9 Active 024029970 Problem Primary osteoarthritis, unspecified site M19.91 Active 861028345 Problem Dupuytren's contracture of hand M72.0 Active 209642933 Problem PVD (peripheral vascular disease) I73.9 Active 029036131 Problem Rheumatoid arthritis, involving unspecified site, unspecified rheumatoid factor presence M06.9 Active 55319693 Problem Right leg claudication I73.9 Active 354486907 Problem Hyperlipidemia, unspecified hyperlipidemia type E78.5 Active 07246917 Problem Pure hypercholesterolemia E78.00 Active 629183027 Problem Primary osteoarthritis, 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 Active 90823499 Problem Moderate single current episode of major depressive disorder F32.1 Active 42425331 Problem Anxiety F41.9 Active 85302010 ALLERGIES No Information ENCOUNTERS Encounter Location Date Diagnosis [address] [id number] [place] [id number] Apr, [facility] [address] [id number] [place] [id number] Mar, Hypotestosteronism E34.9 [facility] [place] [address] [facility] [id number] [place] [id number] Mar, Claustrophobia F40.[address] [facility] [address] [id number] [place] [id number] Mar, Hypotestosteronism E34.9 [facility] [address] [facility] [id number] [place] [address] Mar, Encounter for pre-operative laboratory testing Z01.[address] [facility] [address] [id number] [place] [address] Mar, Acute otitis externa of right ear, unspecified type H60.501 ; Hypotestosteronism E34.9 and Encounter for pre-operative laboratory testing Z01.[address] [facility] [address] [id number] [place] [id number] Mar, [facility] [address] [id number] [place] [id number] Mar, Hypogonadism in male E29.1 and Hypotestosteronism E34.[address] [facility] [address] [id number] [place] [address] Mar, Acute otitis externa of right ear, unspecified type H60.[address] [facility] [address] [id number] [place] [id number] Mar, Hypotestosteronism E34.9 [facility] [address] [id number] [place] [id number] Feb, [facility] [place] [address] [facility] [id number] [place] [id number] Feb, PVD (peripheral vascular disease) I73.9 ; Pure hypercholesterolemia E78.00 and Primary osteoarthritis, unspecified site M19.[address] [facility] [address] [id number] [place] [address] Feb, Hypotestosteronism E34.9 [facility] [address] [id number] [place] [address] Feb, Upper respiratory infection, viral J06.[address] [facility] [address] [id number] [place] [address] Feb, Hypotestosteronism E34.9 [facility] [address]00565100[place] [id number] January, [facility] [address] [id number] [place] [id number] January, Hypotestosteronism E34.9 [facility] [address] [address] [facility] [address] [id number] [place] [address] January, Hypotestosteronism E34.9 [facility] [address]00565100[place] [id number] Dec, [facility] [address] [address] [facility] [address] [id number] [place] [id number] Dec, Erectile dysfunction, unspecified erectile dysfunction type N52.9 [facility] [address]00565100[place] [address] Dec, [facility] [address]65100[place] [address] Dec, Pre-operative cardiovascular examination Z01.810 ; PVD (peripheral vascular disease) I73.9 ; Anxiety F41.9 ; Rheumatoid arthritis, involving unspecified site, unspecified rheumatoid factor presence M06.9 ; Essential hypertension I10 ; Hyperlipidemia, unspecified hyperlipidemia type E78.5 and Hypotestosteronism E34.[address] [facility] [address] [id number] [place] [address] Dec, [facility] [address] [id number] [place] [id number] Dec, Erectile dysfunction, unspecified erectile dysfunction type N52.9 and Hypotestosteronism E34.[address] [facility] [address] [id number] [place] [id number] Dec, Hypotestosteronism E34.9 [facility] [place] [address] [facility] [id number] [place] [address] Nov, [facility] [address] [facility] [id number] [place] [address] Nov, Hypotestosteronism E34.9 [facility] [place] [address] [facility] [id number] [place] [address] Nov, Pure hypercholesterolemia E78.00 and Primary osteoarthritis, unspecified site M19.91 [facility] [address] [id number] [place] [id number] Nov, [facility] [address] [facility] [id number], [place] [address] Nov, Tear of left glenoid labrum, subsequent encounter S43.432D [facility] [address] [id number] [place] [id number] Nov, Hypotestosteronism E34.9 [facility] [address] [id number] [place] [address] Nov, [facility] [address] [id number] [place] [address] Nov, [facility] [address] [id number] [place] [address] Nov, Erectile dysfunction, unspecified erectile dysfunction type N52.9 [facility] [address] [id number] [place] [id number] Nov, Erectile dysfunction, unspecified erectile dysfunction type N52.9 [facility] [address] [id number] [place] [address] Nov, 2017 Viral upper respiratory tract infection J06.9 and Erectile dysfunction, unspecified erectile dysfunction type N52.[address] [facility] [address] [id number] [place] [address] Oct, [facility] [address] [id number] [place] [id number] Oct, [facility] [address] [id number] [place] [id number] Oct, Fall on same level due to nature of surface, initial encounter W18.39XA and Erectile dysfunction, unspecified erectile dysfunction type N52.9 [facility] [id number] [place] [address] Sep, [facility] [id number] [place] [address] Sep, Tear of left rotator cuff, unspecified tear extent M75.102 and Primary osteoarthritis, 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 [facility] [id number] [place] [address]2 Aug, Primary osteoarthritis, unspecified site M19.91 [facility] [id number] [place] [address] Jul, [facility] [id number] [place] [address] Jul, Primary osteoarthritis, unspecified site M19.91 [facility] [id number] [place] [address]272 Jul, Lumbago with sciatica, right side M54.41 [facility] [id number] [place] [address]72[address]451 Jul, Primary osteoarthritis, 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 and Injury of left rotator cuff, subsequent encounter S46.002D [facility] [id number] [place] [address] 52053[address] 6259 Jul, [facility] [id number] [place] [address] 03730[address] 3319 Jul, [facility] [id number] [place] [address] 36475[address] 8936 Jul, [facility] [address]25KS [place] [address] Jul, Lumbago with sciatica, left side M54.42 ; Lumbago with sciatica, right side M54.41 ; Left shoulder pain, unspecified chronicity M25.512 and Essential hypertension I10 [facility] [id number] [place] [address] 88[address] Jun, Lumbago with sciatica, left side M54.42 ; Lumbago with sciatica, right side M54.41 ; Left shoulder pain, unspecified chronicity M25.512 ; Essential hypertension I10 ; Heart murmur previously undiagnosed R01.1 ; Overweight E66.3 ; Anxiety F41.9 and Chronic prescription opiate use Z79.891 [facility] [id number] [place] [address] 8415 Jun, Primary osteoarthritis, unspecified site M19.91 [facility] [id number] [place] [address] 86563- 1232 Jun, [facility] [id number] [place] [address] 11525- 6583 May, Primary osteoarthritis, unspecified site M19.91 [facility] [id number] [place] [address] 46815- 5668 May, Injury of left rotator cuff, subsequent encounter S46.002D [facility] [id number] [place] [address] 36285- 1488 May, [facility] [id number] [place] [address] 85039- 9090 Apr, [facility] [address] [address] Apr, PVD (peripheral vascular disease) I73.9 ; Right leg claudication I73.9 ; Hyperlipidemia, unspecified hyperlipidemia type E78.5 ; Occlusion of femoropopliteal bypass graft, 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 and Essential hypertension I10 [place] [address] [place] [address] Apr, Left shoulder pain, unspecified chronicity M25.512 [facility] [id number] [place] [address] 65858- 6993 Mar, Left shoulder pain, unspecified chronicity M25.512 [facility] [id number] [place] [address] 94658- 5685 Mar, [facility] [id number] [place] [address] 34678- 6874 Mar, [facility] [id number] [place] [address] 22354- 5665 Mar, Dupuytren's contracture of hand M72.0 ; Essential hypertension I10 ; Pure hypercholesterolemia E78.00 ; Primary osteoarthritis, unspecified site M19.91 ; PVD (peripheral vascular disease) I73.9 and Moderate single current episode of major depressive disorder F32.1 [facility] [id number] [place] [id number] Feb, Dental examination Z01.20 and Dental caries K02.9 [facility] [id number] [place] [address] 81491- 4730 Feb, Primary osteoarthritis, unspecified site M19.91 [facility] [address] [place] [address] 23022- 3561 Feb, [facility] [address] [place] [address] 98728- 3278 Feb, [facility] [id number] [place] [address] 34585- 9617 Nov, [facility] [id number] [place] [address] 27449- 4659 Nov, Dupuytren's contracture of hand M72.0 ; Pure hypercholesterolemia E78.00 ; Essential hypertension I10 ; PVD (peripheral vascular disease) I73.9 ; Primary osteoarthritis, unspecified site M19.91 and Rheumatoid arthritis, involving unspecified site, unspecified rheumatoid factor presence M06.9 [facility] [address] [facility] [id number] [place] [address] Nov, IMMUNIZATIONS No Known Immunizations SOCIAL HISTORY Never Assessed REASON FOR VISIT Testosterone injection. darron lund PLAN OF CARE VITAL SIGNS MEDICATIONS Unknown Medications RESULTS Name Result Date Reference Range FSH, SERUM 2018-03-20 FSH <0.7 1.6-8.0 LH 2018-03-20 LH <0.2 1.5-9.3 PROLACTIN 2018-03-20 PROLACTIN 6.1 2.0-18.0 TESTOSTERONE, FREE AND TOTAL 2018-03-20 TESTOSTERONE, TOTAL, LC/MS/MS [phone] TESTOSTERONE, FREE 28.6 46.0-224.0 TESTOSTERONE,BIOAVAILABLE 52.6 110.0-575.0 SEX HORMONE BINDING GLOBULIN 34 22-77 ALBUMIN,SERUM 4.0 3.6-5.1 PROCEDURES Procedure Date Ordered Result Body Site LAB NOT BILLED BY [facility] March 20, 2018 VENIPUNCT, ROUTINE* March 20, 2018 INSTRUCTIONS MEDICATIONS ADMINISTERED No Known Medications MEDICAL (GENERAL) HISTORY Type Description Date Medical History dupuytren's contracture-hand bilateral Medical History hypertension Medical History hyperlipidemia Medical History Arthritis Medical History peripheral vascular disease Medical History rheumatoid arthritis Surgical History cervical fusion C3-C7 -[facility] 05/2015 Surgical History dupuytren's contracture-bilateral hands Surgical History Artery bypass in right leg Surgical History Occipital bone surgery right side Surgical History surgery near right eye Surgical History [facility] Left shoulder replacement 01/13/2018 Hospitalization History Surgery(s) only Hospitalization History [facility]- Cold Symptoms 03/03/2018
--- OUTSIDE RECORDS SUMMARY | 2018-12-22 13:51 | XMS REPORT ---
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 Name Role Phone SINDY LANDAVERDE Unavailable PROBLEMS Type Condition ICD9-CM Code [id number] Code Onset Dates Condition Status SNOMED Code Problem Lumbago with sciatica, left side M54.42 Active 176499413 Problem Chronic prescription opiate use Z79.891 Active 289373814 Problem Lumbago with sciatica, right side M54.41 Active 735408116938510 Problem Claustrophobia F40.240 Active 27757256 Problem Essential hypertension I10 Active 51979737 Problem Hypogonadism in male E29.1 Active 77947923 Problem Tear of left rotator cuff, unspecified tear extent M75.102 Active 1458652 Problem Left shoulder pain, unspecified chronicity M25.512 Active 98961704 Problem Hypotestosteronism E34.9 Active 6539293941485 Problem Erectile dysfunction, unspecified erectile dysfunction type N52.9 Active 235639847 Problem Primary osteoarthritis, unspecified site M19.91 Active 373270118 Problem Dupuytren's contracture of hand M72.0 Active 877164516 Problem PVD (peripheral vascular disease) I73.9 Active 508575180 Problem Rheumatoid arthritis, involving unspecified site, unspecified rheumatoid factor presence M06.9 Active 40005765 Problem Right leg claudication I73.9 Active 868727857 Problem Hyperlipidemia, unspecified hyperlipidemia type E78.5 Active 07679004 Problem Pure hypercholesterolemia E78.00 Active 806373724 Problem Primary osteoarthritis, 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 Active 86369552 Problem Moderate single current episode of major depressive disorder F32.1 Active 87451709 Problem Anxiety F41.9 Active 97481224 ALLERGIES No Information ENCOUNTERS Encounter Location Date Diagnosis [address] [id number] [place] [id number] Apr, [facility] [address] [id number][place] [id number] Mar, Hypotestosteronism E34.9 [facility] [place] [address] [facility] [id number] [place] [id number] Mar, Claustrophobia F40.[address] [facility] [address] [id number][place] [id number] Mar, Hypotestosteronism E34.9 [facility] [address] [facility] [id number] [place] [address] Mar, Encounter for pre-operative laboratory testing Z01.[address] [facility] [address] [id number][place] [id number] Mar, Acute otitis externa of right ear, unspecified type H60.501 ; Hypotestosteronism E34.9 and Encounter for pre-operative laboratory testing Z01.[address] [facility] [address] [id number][place] [id number] Mar, [facility] [address] [id number][place] [id number] Mar, Hypogonadism in male E29.1 and Hypotestosteronism E34.[address] [facility] [address] [id number][place] [address] Mar, Acute otitis externa of right ear, unspecified type H60.[address] [facility] [address] [id number][place] [id number] Mar, Hypotestosteronism E34.9 [facility] [address] [id number][place] [id number] Feb, [facility] [place] [address] [facility] [id number] [place] [id number] Feb, PVD (peripheral vascular disease) I73.9 ; Pure hypercholesterolemia E78.00 and Primary osteoarthritis, unspecified site M19.[address] [facility] [address] [id number][place] [id number] Feb, Hypotestosteronism E34.9 [facility] [address] [id number][place] [id number] Feb, Upper respiratory infection, viral J06.[address] [facility] [address] [id number], [place] [id number] Feb, Hypotestosteronism E34.9 [facility] [address]00565100[place] [id number] January, [facility] [address] [id number][place] [id number] January, Hypotestosteronism E34.9 [facility] [address] [address] [facility] [address] [id number], [place] [id number] January, Hypotestosteronism E34.9 [facility] [address]00565100[place] [address] Dec, [facility] [address] [address] [facility] [address] [id number], [place] [id number] Dec, Erectile dysfunction, unspecified erectile dysfunction type N52.9 [facility] [address]00565100[place] [id number] Dec, [facility] [address]65100[place] [address] Dec, Pre-operative cardiovascular examination Z01.810 ; PVD (peripheral vascular disease) I73.9 ; Anxiety F41.9 ; Rheumatoid arthritis, involving unspecified site, unspecified rheumatoid factor presence M06.9 ; Essential hypertension I10 ; Hyperlipidemia, unspecified hyperlipidemia type E78.5 and Hypotestosteronism E34.[address] [facility] [address] [id number][place] [id number] Dec, [facility] [address] [id number], [place] [id number] Dec, Erectile dysfunction, unspecified erectile dysfunction type N52.9 and Hypotestosteronism E34.[address] [facility] [address] [id number] [place] [id number] Dec, Hypotestosteronism E34.9 [facility] [place] [address] [facility] [id number] [place] [id number] Nov, [facility] [address] [facility] [id number] [place] [address] Nov, Hypotestosteronism E34.9 [facility] [place] [address] [facility] [id number] [place] [id number] Nov, Pure hypercholesterolemia E78.00 and Primary osteoarthritis, unspecified site M19.91 [facility] [address] [id number][place] [id number] Nov, [facility] [address] [facility] [id number] [address] Nov, Tear of left glenoid labrum, subsequent encounter S43.432D [facility] [address] [id number], [place] [address] Nov, Hypotestosteronism E34.9 [facility] [address] [id number], [place] [id number] Nov, [facility] [address] [id number], [place] [id number] Nov, [facility] [address] [id number], [place] [address] Nov, Erectile dysfunction, unspecified erectile dysfunction type N52.9 [facility] [address] [id number], [place] [id number] Nov, Erectile dysfunction, unspecified erectile dysfunction type N52.9 [facility] [address] [id number] [place] [id number] Nov, 2017 Viral upper respiratory tract infection J06.9 and Erectile dysfunction, unspecified erectile dysfunction type N52.[address] [facility] [address] [id number] [place] [address] Oct, [facility] [address] [id number], [place] [id number] Oct, [facility] [address] [id number], [place] [address] Oct, Fall on same level due to nature of surface, initial encounter W18.39XA and Erectile dysfunction, unspecified erectile dysfunction type N52.9 [facility] [place] [facility] [address] [place] [id number] [place] [address] Sep, [facility] [place] [facility] [id number] [place] [address] 2020 Sep, Tear of left rotator cuff, unspecified tear extent M75.102 and Primary osteoarthritis, 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 [facility] [place] [facility] [id number] [place] [address]24 Aug, Primary osteoarthritis, unspecified site M19.91 [facility] [place] [facility] [id number] [place] [address]6 Jul, [facility] [facility] [id number] [place] [address]89[address]696 Jul, Primary osteoarthritis, unspecified site M19.91 [facility] [place] [facility] [id number] [place] [address] 24771- 4938 Jul, Lumbago with sciatica, right side M54.41 [facility] [id number] [place] [address] 80252- [address]659 Jul, Primary osteoarthritis, 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 and Injury of left rotator cuff, subsequent encounter S46.002D [facility] [id number] [place] [address] 94280- 8066 Jul, [facility] [id number] [place] [address] 20738- 2077 Jul, [facility] [place] [facility] [id number] [place] [address] 88635- 7478 Jul, [facility] [place] [facility] [address] [place] [id number] [address] Jul, Lumbago with sciatica, left side M54.42 ; Lumbago with sciatica, right side M54.41 ; Left shoulder pain, unspecified chronicity M25.512 and Essential hypertension I10 [place] [id number] [place] [address] Jun, Lumbago with sciatica, left side M54.42 ; Lumbago with sciatica, right side M54.41 ; Left shoulder pain, unspecified chronicity M25.512 ; Essential hypertension I10 ; Heart murmur previously undiagnosed R01.1 ; Overweight E66.3 ; Anxiety F41.9 and Chronic prescription opiate use Z79.891 [place] [id number] [place] [address]8280- 6467 Jun, Primary osteoarthritis, unspecified site M19.91 [place] [id number] [place] [address]38- 1415 Jun, [place] [id number] [place] [address]285- 2242 May, Primary osteoarthritis, unspecified site M19.91 [place] [id number] [place] [address] 61438- 2382 May, Injury of left rotator cuff, subsequent encounter S46.002D [place] [id number] [place] [address] 93529- 1449 May, [place] [id number] [place] [address] 93747- 2104 Apr, [place] [address] [address] Apr, PVD (peripheral vascular disease) I73.9 ; Right leg claudication I73.9 ; Hyperlipidemia, unspecified hyperlipidemia type E78.5 ; Occlusion of femoropopliteal bypass graft, 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 and Essential hypertension I10 [place] [address] [place] [address] Apr, Left shoulder pain, unspecified chronicity M25.512 [facility] [place] [facility] [id number] [place] [address] 26403- 4276 Mar, Left shoulder pain, unspecified chronicity M25.512 [facility] [place] [facility] [id number] [place] [address] 11784- 7298 Mar, [place] [id number] [place] [address] 23005- 5985 Mar, [facility] [place] [facility] [id number] [place] [address] 83093- 4931 Mar, Dupuytren's contracture of hand M72.0 ; Essential hypertension I10 ; Pure hypercholesterolemia E78.00 ; Primary osteoarthritis, unspecified site M19.91 ; PVD (peripheral vascular disease) I73.9 and Moderate single current episode of major depressive disorder F32.1 [facility] [id number] [place] [id number] Feb, Dental examination Z01.20 and Dental caries K02.9 [place] [id number] [place] [address] 76899- 0636 Feb, Primary osteoarthritis, unspecified site M19.91 [facility] [place] [facility] [address] [place] [address] 39632- 6285 Feb, [facility] [place] [facility] [address] [place] [address] 11240- 8470 Feb, [facility] [place] [facility] [id number] [place] [address] 68382- 2919 Nov, [facility] [place] [facility] [id number] [place] [address] 61341- 0075 Nov, Dupuytren's contracture of hand M72.0 ; Pure hypercholesterolemia E78.00 ; Essential hypertension I10 ; PVD (peripheral vascular disease) I73.9 ; Primary osteoarthritis, unspecified site M19.91 and Rheumatoid arthritis, involving unspecified site, unspecified rheumatoid factor presence M06.9 [facility] [address] [facility] [id number] [place] [address] Nov, IMMUNIZATIONS Vaccine Route Administration Date Status TESTOSTERONE (PT'S OWN) IM Intramuscular April 03, 2018 Administered SOCIAL HISTORY Never Assessed REASON FOR VISIT Immunization(s)--testosterone injection---essie RN PLAN OF CARE VITAL SIGNS MEDICATIONS Unknown Medications RESULTS No Results PROCEDURES Procedure Date Ordered Result Body Site TESTOSTERONE (PT'S OWN) April 03, 2018 THER/PROPH/DIAG INJ, SC/IM April 03, 2018 INSTRUCTIONS MEDICATIONS ADMINISTERED No Known Medications MEDICAL (GENERAL) HISTORY Type Description Date Medical History dupuytren's contracture-hand bilateral Medical History hypertension Medical History hyperlipidemia Medical History Arthritis Medical History peripheral vascular disease Medical History rheumatoid arthritis Surgical History cervical fusion C3-C7 [facility] 05/2015 Surgical History dupuytren's contracture-bilateral hands Surgical History Artery bypass in right leg Surgical History Occipital bone surgery right side Surgical History surgery near right eye Surgical History [place] Left shoulder replacement 01/13/2018 Hospitalization History Surgery(s) only Hospitalization History [facility] [place]- Cold Symptoms 03/03/2018
--- OUTSIDE RECORDS SUMMARY | 2018-12-22 13:51 | XMS REPORT ---
Author Author SINDY LANDAVERDE Organization [facility] Address [address] [place] [address] Care Team Providers Care Salesperson Terrazzo Tiles Name Role Phone SINDY LANDAVERDE Unavailable PROBLEMS Type Condition ICD9-CM Code DFZ18-PA Code Onset Dates Condition Status SNOMED Code Problem Lumbago with sciatica, left side M54.42 Active 950438831 Problem Chronic prescription opiate use Z79.891 Active 290343530 Problem Lumbago with sciatica, right side M54.41 Active 969569399026770 Problem Claustrophobia F40.240 Active 40090022 Problem Essential hypertension I10 Active 37766950 Problem Hypogonadism in male E29.1 Active 48806412 Problem Tear of left rotator cuff, unspecified tear extent M75.102 Active 0616310 Problem Left shoulder pain, unspecified chronicity M25.512 Active 06937594 Problem Hypotestosteronism E34.9 Active 3588917827024 Problem Erectile dysfunction, unspecified erectile dysfunction type N52.9 Active 763198966 Problem Primary osteoarthritis, unspecified site M19.91 Active 682509099 Problem Dupuytren's contracture of hand M72.0 Active 027203415 Problem PVD (peripheral vascular disease) I73.9 Active 451001758 Problem Rheumatoid arthritis, involving unspecified site, unspecified rheumatoid factor presence M06.9 Active 90903591 Problem Right leg claudication I73.9 Active 000281297 Problem Hyperlipidemia, unspecified hyperlipidemia type E78.5 Active 92153291 Problem Pure hypercholesterolemia E78.00 Active 005002624 Problem Primary osteoarthritis, 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 Active 47967542 Problem Moderate single current episode of major depressive disorder F32.1 Active 77916088 Problem Anxiety F41.9 Active 46417167 ALLERGIES No Information ENCOUNTERS Encounter Location Date Diagnosis [address] [id number] [place] [id number] Apr, [facility] [address] [id number][place] [id number] Mar, Hypotestosteronism E34.9 [facility] [address] [facility] [id number] [place] [id number] Mar, Claustrophobia F40.[address] [facility] [address] [id number][place] [id number] Mar, Hypotestosteronism E34.9 [facility] [place] [address] [facility] [id number] [place] [address] Mar, Encounter for pre-operative laboratory testing Z01.[address] [facility] [address] [id number][place] [id number] Mar, Acute otitis externa of right ear, unspecified type H60.501 ; Hypotestosteronism E34.9 and Encounter for pre-operative laboratory testing Z01.[address] [facility] [address] [id number][place] [id number] Mar, [facility] [address] [id number][place] [id number] Mar, Hypogonadism in male E29.1 and Hypotestosteronism E34.[address] [facility] [address] [id number][place] [id number] Mar, Acute otitis externa of right ear, unspecified type H60.[address] [facility] [address] [id number][place] [id number] Mar, Hypotestosteronism E34.9 [facility] [address] [id number][place] [id number] Feb, [facility] [address] [facility] [place] [id number] [place] [id number] Feb, PVD (peripheral vascular disease) I73.9 ; Pure hypercholesterolemia E78.00 and Primary osteoarthritis, unspecified site M19.[address] [facility] [address] [id number][place] [id number] Feb, Hypotestosteronism E34.9 [facility] [address] [id number], [place] [id number] Feb, Upper respiratory infection, viral J06.[address] [facility] [address] [id number][place] [id number] Feb, Hypotestosteronism E34.9 [facility] [address]65100[place] [id number] January, [facility] [address] [id number][place] [id number] January, Hypotestosteronism E34.9 [facility] [address] [facility] [address] [id number], [place] [id number] January, Hypotestosteronism E34.9 [facility] [address]00565100[place] [id number] Dec, [facility] [address] [facility] [address] [id number], [place] [id number] Dec, Erectile dysfunction, unspecified erectile dysfunction type N52.9 [facility] [address]65100[place] [id number] Dec, [facility] [address]100[place] [address] Dec, Pre-operative cardiovascular examination Z01.810 ; PVD (peripheral vascular disease) I73.9 ; Anxiety F41.9 ; Rheumatoid arthritis, involving unspecified site, unspecified rheumatoid factor presence M06.9 ; Essential hypertension I10 ; Hyperlipidemia, unspecified hyperlipidemia type E78.5 and Hypotestosteronism E34.[address] [facility] [address] [id number], [place] [id number] Dec, [facility] [address] [id number], [place] [id number] Dec, Erectile dysfunction, unspecified erectile dysfunction type N52.9 and Hypotestosteronism E34.[address] [facility] [address] [id number] [place] [id number] Dec, Hypotestosteronism E34.9 [facility] [address] [facility] [place] [id number] [place] [id number] Nov, [facility] [place] [address] [facility] [id number] [place] [address] Nov, Hypotestosteronism E34.9 [facility] [address] [facility] [place] [id number] [place] [id number] Nov, Pure hypercholesterolemia E78.00 and Primary osteoarthritis, unspecified site M19.91 [facility] [address] [id number], [place] [id number] Nov, [facility] [place] [address] [facility] [id number] [address] Nov, Tear of left glenoid labrum, subsequent encounter S43.432D [facility] [address] [id number], [place] [id number] Nov, Hypotestosteronism E34.9 [facility] [address] [id number], [place] [id number] Nov, [facility] [address] [id number], [place] [id number] Nov, [facility] [address] [id number], [place] [id number] Nov, Erectile dysfunction, unspecified erectile dysfunction type N52.9 [facility] [address] [id number], [place] [id number] Nov, Erectile dysfunction, unspecified erectile dysfunction type N52.9 [facility] [address] [id number] [place] [id number] Nov, 2017 Viral upper respiratory tract infection J06.9 and Erectile dysfunction, unspecified erectile dysfunction type N52.[address] [facility] [address] [id number] [place] [id number] Oct, [facility] [address] [id number], [place] [id number] Oct, [facility] [address] [id number][place] [id number] Oct, Fall on same level due to nature of surface, initial encounter W18.39XA and Erectile dysfunction, unspecified erectile dysfunction type N52.9 [facility] [id number] [place] [address] Sep, [facility] [id number] [place] [address] Sep, Tear of left rotator cuff, unspecified tear extent M75.102 and Primary osteoarthritis, 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 [facility] [id number] [place] [address] Aug, Primary osteoarthritis, unspecified site M19.91 [facility] [id number] [place] [address]10[address] Jul, [facility] [id number] [place] [address]86- 56[address] Jul, Primary osteoarthritis, unspecified site M19.91 [facility] [id number] [place] [address]85 Jul, Lumbago with sciatica, right side M54.41 [facility] [id number] [place] [address]15[address] Jul, Primary osteoarthritis, 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 and Injury of left rotator cuff, subsequent encounter S46.002D [facility] [id number] [place] [address] 88132[address] Jul, [facility] [id number] [place] [address] 88085- [address]183 Jul, [facility] [id number] [place] [address]70- 49[address] Jul, [facility] [address] [place] [address] Jul, Lumbago with sciatica, left side M54.42 ; Lumbago with sciatica, right side M54.41 ; Left shoulder pain, unspecified chronicity M25.512 and Essential hypertension I10 [facility] [facility] [id number] [place] [address]32[address] Jun, Lumbago with sciatica, left side M54.42 ; Lumbago with sciatica, right side M54.41 ; Left shoulder pain, unspecified chronicity M25.512 ; Essential hypertension I10 ; Heart murmur previously undiagnosed R01.1 ; Overweight E66.3 ; Anxiety F41.9 and Chronic prescription opiate use Z79.891 [facility] [id number] [place] [address]15- [address] Jun, Primary osteoarthritis, unspecified site M19.91 [facility] [id number] [place] [address]83- 8[address] Jun, [facility] [id number] [place] [address] 36020- 4488 May, Primary osteoarthritis, unspecified site M19.91 [facility] [facility] [id number] [place] [address] 12500- 4296 May, Injury of left rotator cuff, subsequent encounter S46.002D [place] [id number] [place] [address] 13558- 7807 May, [place] [id number] [place] [address] 85136- 2784 Apr, [place] [address] [address] Apr, PVD (peripheral vascular disease) I73.9 ; Right leg claudication I73.9 ; Hyperlipidemia, unspecified hyperlipidemia type E78.5 ; Occlusion of femoropopliteal bypass graft, 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 and Essential hypertension I10 [place] [address] [place] [address] Apr, Left shoulder pain, unspecified chronicity M25.512 [facility] [id number] [place] [address] 72729- 5877 Mar, Left shoulder pain, unspecified chronicity M25.512 [facility] [id number] [place] [address] 98387- 0416 Mar, [place] [id number] [place] [address] 11419- 5352 Mar, [facility] [id number] [place] [address] 97660- 8293 Mar, Dupuytren's contracture of hand M72.0 ; Essential hypertension I10 ; Pure hypercholesterolemia E78.00 ; Primary osteoarthritis, unspecified site M19.91 ; PVD (peripheral vascular disease) I73.9 and Moderate single current episode of major depressive disorder F32.1 [facility] [id number] [place] [id number] Feb, Dental examination Z01.20 and Dental caries K02.9 [place] [id number] [place] [address] 97094- 9421 Feb, Primary osteoarthritis, unspecified site M19.91 [facility] [address] [place] [address] 68936- 4906 Feb, [facility] [address] [place] [address] 56395- 7000 Feb, [facility] [id number] [place] [address]88- 1958 Nov, [facility] [id number] [place] [address] 21337- 8783 Nov, Dupuytren's contracture of hand M72.0 ; Pure hypercholesterolemia E78.00 ; Essential hypertension I10 ; PVD (peripheral vascular disease) I73.9 ; Primary osteoarthritis, unspecified site M19.91 and Rheumatoid arthritis, involving unspecified site, unspecified rheumatoid factor presence M06.9 [facility] [place] [address] [facility] [id number] [place] [address] Nov, IMMUNIZATIONS No Known Immunizations SOCIAL HISTORY Never Assessed REASON FOR VISIT med for MRI PLAN OF CARE VITAL SIGNS MEDICATIONS Medication Instructions Dosage Frequency Start Date End Date Duration Status Diazepam 10 mg Orally one time, 1 hour before procedure 1 tablet as needed Mar, 1 dose Active RESULTS No Results PROCEDURES No Known [...] History surgery near right eye Surgical History [place] Left shoulder replacement 01/13/2018 Hospitalization History Surgery(s) only Hospitalization History [facility]- Cold Symptoms 03/03/2018
--- OUTSIDE RECORDS SUMMARY | 2018-12-22 13:52 | XMS REPORT ---
Author Author SINDY LANDAVERDE Organization [facility] Address [address] [place] [address] Care Team Providers Care Channel Rebuilder Name Role Phone SINDY LANDAVERDE Unavailable PROBLEMS Type Condition ICD9-CM Code SGA80-EC Code Onset Dates Condition Status SNOMED Code Problem Lumbago with sciatica, left side M54.42 Active 202277704 Problem Chronic prescription opiate use Z79.891 Active 700774852 Problem Lumbago with sciatica, right side M54.41 Active 035930319382747 Problem Claustrophobia F40.240 Active 48537491 Problem Essential hypertension I10 Active 80287276 Problem Hypogonadism in male E29.1 Active 52146175 Problem Tear of left rotator cuff, unspecified tear extent M75.102 Active 6070164 Problem Left shoulder pain, unspecified chronicity M25.512 Active 16253968 Problem Hypotestosteronism E34.9 Active 7381582850301 Problem Erectile dysfunction, unspecified erectile dysfunction type N52.9 Active 206015763 Problem Primary osteoarthritis, unspecified site M19.91 Active 542405750 Problem Dupuytren's contracture of hand M72.0 Active 860404822 Problem PVD (peripheral vascular disease) I73.9 Active 184210643 Problem Rheumatoid arthritis, involving unspecified site, unspecified rheumatoid factor presence M06.9 Active 08057181 Problem Right leg claudication I73.9 Active 088718645 Problem Hyperlipidemia, unspecified hyperlipidemia type E78.5 Active 23380324 Problem Pure hypercholesterolemia E78.00 Active 460074215 Problem Primary osteoarthritis, 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 Active 64162083 Problem Moderate single current episode of major depressive disorder F32.1 Active 03738435 Problem Anxiety F41.9 Active 78452054 ALLERGIES No Information ENCOUNTERS Encounter Location Date Diagnosis [address] [id number] [place] [id number] Apr, [facility] [address] [id number] [place] [id number] Mar, Hypotestosteronism E34.9 [facility] [address] [facility] [id number] [id number] Mar, Claustrophobia F40.[address] [facility] [address] [id number] [place] [id number] Mar, Hypotestosteronism E34.9 [facility] [address] [facility] [id number] [place] [address] Mar, Encounter for pre-operative laboratory testing Z01.[address] [facility] [address] [id number] [place] [id number] Mar, Acute otitis externa of right ear, unspecified type H60.501 ; Hypotestosteronism E34.9 and Encounter for pre-operative laboratory testing Z01.[address] [facility] [address] [id number] [place] [address] Mar, [facility] [address] [id number] [place] [address] Mar, Hypogonadism in male E29.1 and Hypotestosteronism E34.[address] [facility] [address] [id number] [place] [address] Mar, Acute otitis externa of right ear, unspecified type H60.[address] [facility] [address] [id number] [place] [id number] Mar, Hypotestosteronism E34.9 [facility] [address] [id number] [place] [id number] Feb, [facility] [address] [facility] [id number][place] [id number] Feb, PVD (peripheral vascular disease) I73.9 ; Pure hypercholesterolemia E78.00 and Primary osteoarthritis, unspecified site M19.[address] [facility] [address] [id number] [place] [address] Feb, Hypotestosteronism E34.9 [facility] [address] [id number] [place] [id number] Feb, Upper respiratory infection, viral J06.[address] [facility] [address] [id number] [place] [address] Feb, Hypotestosteronism E34.9 [facility] [address] [id number] January, [facility] [address] [id number] [place] [id number] January, Hypotestosteronism E34.9 [facility] [address] [facility] [address] [id number] [place] [id number] January, Hypotestosteronism E34.9 [facility] [address] [id number] Dec, [facility] [address] [facility] [address] [id number] [place] [id number] Dec, Erectile dysfunction, unspecified erectile dysfunction type N52.9 [facility] [address] [id number] Dec, [facility] [address] [id number] Dec, Pre-operative cardiovascular examination Z01.810 ; PVD (peripheral vascular disease) I73.9 ; Anxiety F41.9 ; Rheumatoid arthritis, involving unspecified site, unspecified rheumatoid factor presence M06.9 ; Essential hypertension I10 ; Hyperlipidemia, unspecified hyperlipidemia type E78.5 and Hypotestosteronism E34.[address] [facility] [address] [id number] [place] [address] Dec, [facility] [address] [id number] [place] [id number] Dec, Erectile dysfunction, unspecified erectile dysfunction type N52.9 and Hypotestosteronism E34.[address] [facility] [address] [id number] [place] [id number] Dec, Hypotestosteronism E34.9 [facility] [address] [facility] [id number][place] [id number] Nov, [facility] [address] [facility] [id number] [place] [address] Nov, Hypotestosteronism E34.9 [facility] [facility] [id number][place] [address] Nov, Pure hypercholesterolemia E78.00 and Primary osteoarthritis, unspecified site M19.91 [facility] [address] [id number] [place] [address] Nov, [facility] [address] [facility] [id number] [address] Nov, Tear of left glenoid labrum, subsequent encounter S43.432D [facility] [address] [id number] [place] [id number] Nov, Hypotestosteronism E34.9 [facility] [address] [id number] [place] [id number] Nov, [facility] [address] [id number] [place] [address] Nov, [facility] [address] [id number] [place] [id number] Nov, Erectile dysfunction, unspecified erectile dysfunction type N52.9 [facility] [address] [id number] [place] [id number] Nov, Erectile dysfunction, unspecified erectile dysfunction type N52.9 [facility] [address] [id number] [place] [id number] Nov, 2017 Viral upper respiratory tract infection J06.9 and Erectile dysfunction, unspecified erectile dysfunction type N52.[address] [facility] [address] [id number] [place] [address] Oct, [facility] [address] [id number] [place] [address] Oct, [facility] [address] [id number] [place] [address] Oct, Fall on same level due to nature of surface, initial encounter W18.39XA and Erectile dysfunction, unspecified erectile dysfunction type N52.9 [facility] [id number] [place] [address] Sep, [facility] [id number] [place] [address] Sep, Tear of left rotator cuff, unspecified tear extent M75.102 and Primary osteoarthritis, 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 [facility] [id number] [place] [address] Aug, Primary osteoarthritis, unspecified site M19.91 [facility] [id number] [place] [address] Jul, [facility] [id number] [place] [address]47[address] Jul, Primary osteoarthritis, unspecified site M19.91 [facility] [id number] [place] [address] Jul, Lumbago with sciatica, right side M54.41 [facility] [id number] [place] [address]69[address] Jul, Primary osteoarthritis, 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 and Injury of left rotator cuff, subsequent encounter S46.002D [facility] [id number] [place] [address] 71614- 9415 Jul, [facility] [id number] [place] [address] 13475- 6690 Jul, [facility] [id number] [place] [address]39[address] Jul, [facility] [address] [id number] [place] [address] Jul, Lumbago with sciatica, left side M54.42 ; Lumbago with sciatica, right side M54.41 ; Left shoulder pain, unspecified chronicity M25.512 and Essential hypertension I10 [id number] [place] [address] 74[address]- [address] Jun, Lumbago with sciatica, left side M54.42 ; Lumbago with sciatica, right side M54.41 ; Left shoulder pain, unspecified chronicity M25.512 ; Essential hypertension I10 ; Heart murmur previously undiagnosed R01.1 ; Overweight E66.3 ; Anxiety F41.9 and Chronic prescription opiate use Z79.891 [address] [facility] [id number] [place] [address]96- [address] Jun, Primary osteoarthritis, unspecified site M19.91 [address] [facility] [id number] [place] [address]30- [address] Jun, [place] [facility] [id number] [place] [address] 77960- [address]85 May, Primary osteoarthritis, unspecified site M19.91 [facility] [id number] [place] [address] 86566- 6068 May, Injury of left rotator cuff, subsequent encounter S46.002D [facility] [facility] [id number] [place] [address] 05845- [address] May, [facility] [facility] [id number] [place] [address]707- [address] Apr, [place] [address] [address] Apr, PVD (peripheral vascular disease) I73.9 ; Right leg claudication I73.9 ; Hyperlipidemia, unspecified hyperlipidemia type E78.5 ; Occlusion of femoropopliteal bypass graft, 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 and Essential hypertension I10 [place] [address] [place] [address] Apr, Left shoulder pain, unspecified chronicity M25.512 [facility] [id number] [place] [address] 27877- 9933 Mar, Left shoulder pain, unspecified chronicity M25.512 [facility] [id number] [place] [address] Mar, [place] [id number] [place] [address] 52744- 4383 Mar, [facility] [id number] [place] [address] 51975- 9893 Mar, Dupuytren's contracture of hand M72.0 ; Essential hypertension I10 ; Pure hypercholesterolemia E78.00 ; Primary osteoarthritis, unspecified site M19.91 ; PVD (peripheral vascular disease) I73.9 and Moderate single current episode of major depressive disorder F32.1 [facility] [id number] [place] [id number] Feb, Dental examination Z01.20 and Dental caries K02.9 [place] [id number] [place] [address] 47172- 5708 Feb, Primary osteoarthritis, unspecified site M19.91 [facility] [address] [place] [address] 56177- 3106 Feb, [facility] [address] [place] [address] 60893- 6698 Feb, [facility] [id number] [place] [address] 58313- 6784 Nov, [facility] [id number] [place] [address] 65283- 5827 Nov, Dupuytren's contracture of hand M72.0 ; Pure hypercholesterolemia E78.00 ; Essential hypertension I10 ; PVD (peripheral vascular disease) I73.9 ; Primary osteoarthritis, unspecified site M19.91 and Rheumatoid arthritis, involving unspecified site, unspecified rheumatoid factor presence M06.9 [facility] [address] [facility] [id number] [place] [address] Nov, IMMUNIZATIONS No Known Immunizations SOCIAL HISTORY Never Assessed REASON FOR VISIT Lab (walk-in) PLAN OF CARE VITAL SIGNS MEDICATIONS Unknown Medications RESULTS No Results PROCEDURES Procedure Date Ordered Result Body Site LAB NOT BILLED BY [facility] March 28, 2018 VENIPUNCT, ROUTINE* March 28, 2018 INSTRUCTIONS MEDICATIONS ADMINISTERED No Known Medications MEDICAL (GENERAL) HISTORY Type Description Date Medical History dupuytren's contracture-hand bilateral Medical History hypertension Medical History hyperlipidemia Medical History Arthritis Medical History peripheral vascular disease Medical History rheumatoid arthritis Surgical History cervical fusion C3-C7 -[facility] 05/2015 Surgical History dupuytren's contracture-bilateral hands Surgical History Artery bypass in right leg Surgical History Occipital bone surgery right side Surgical History surgery near right eye Surgical History [place] Left shoulder replacement 01/13/2018 Hospitalization History Surgery(s) only Hospitalization History [facility] [place]- Cold Symptoms 03/03/2018
--- OUTSIDE RECORDS SUMMARY | 2018-12-22 13:52 | XMS REPORT ---
Author Author SINDY LANDAVERDE Organization [facility] Address [address] [place] [address] Care Team Providers Care Entertainment Musician Name Role Phone SAIMA SINDY Unavailable PROBLEMS Type Condition ICD9-CM Code XJI13-TC Code Onset Dates Condition Status SNOMED Code Problem Lumbago with sciatica, left side M54.42 Active 225532893 Problem Chronic prescription opiate use Z79.891 Active 470532759 Problem Lumbago with sciatica, right side M54.41 Active 022129757410129 Problem Claustrophobia F40.240 Active 58912998 Problem Essential hypertension I10 Active 89993864 Problem Hypogonadism in male E29.1 Active 40680776 Problem Tear of left rotator cuff, unspecified tear extent M75.102 Active 8431090 Problem Left shoulder pain, unspecified chronicity M25.512 Active 68926422 Problem Hypotestosteronism E34.9 Active 9790293039575 Problem Erectile dysfunction, unspecified erectile dysfunction type N52.9 Active 040229937 Problem Primary osteoarthritis, unspecified site M19.91 Active 473949208 Problem Dupuytren's contracture of hand M72.0 Active 722263760 Problem PVD (peripheral vascular disease) I73.9 Active 141712736 Problem Rheumatoid arthritis, involving unspecified site, unspecified rheumatoid factor presence M06.9 Active 15962476 Problem Right leg claudication I73.9 Active 457433044 Problem Hyperlipidemia, unspecified hyperlipidemia type E78.5 Active 78694837 Problem Pure hypercholesterolemia E78.00 Active 663324294 Problem Primary osteoarthritis, 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 Active 28496517 Problem Moderate single current episode of major depressive disorder F32.1 Active 91555753 Problem Anxiety F41.9 Active 19750023 ALLERGIES Substance Reaction Event Type Date Status Niacin Unknown Drug Allergy Mar, Active ENCOUNTERS Encounter Location Date Diagnosis [address] [id number] [id number] Apr, [facility] [address] [id number] [id number] Mar, Hypotestosteronism E34.9 [facility] [place] [address] [facility] [id number] [id number] Mar, Claustrophobia F40.[address] [facility] [address] [id number][place] [id number] Mar, Hypotestosteronism E34.9 [facility] [address] [id number] [address] Mar, Encounter for pre-operative laboratory testing Z01.[address] [facility] [address] [id number][place] [id number] Mar, Acute otitis externa of right ear, unspecified type H60.501 ; Hypotestosteronism E34.9 and Encounter for pre-operative laboratory testing Z01.812 [facility] [address] [id number][place] [id number] Mar, [facility] [address] [id number][place] [id number] Mar, Hypogonadism in male E29.1 and Hypotestosteronism E34.9 [facility] [address] [facility] [address] [id number][place] [id number] Mar, Acute otitis externa of right ear, unspecified type H60.[address] [facility] [address] [id number][place] [id number] Mar, Hypotestosteronism E34.9 [facility] [address] [id number], [place] [id number] Feb, [facility] [place] [address] [id number] [place] [id number] Feb, PVD (peripheral vascular disease) I73.9 ; Pure hypercholesterolemia E78.00 and Primary osteoarthritis, unspecified site M19.[address] [facility] [address] [id number] [place] [id number] Feb, Hypotestosteronism E34.[address] [facility] [address] [id number], [place] [id number] Feb, Upper respiratory infection, viral J06.[address] [facility] [address] [id number][place] [id number] Feb, Hypotestosteronism E34.[address] [facility] [place] [id number] [place] [id number] January, [facility] [address] [id number][place] [id number] January, Hypotestosteronism E34.9 [facility] [address] [address] [facility] [address] [id number], [place] [id number] January, Hypotestosteronism E34.9 [facility] [address]00565100[place] [id number] Dec, [facility] [address] [facility] [address] [id number], [place] [id number] Dec, Erectile dysfunction, unspecified erectile dysfunction type N52.9 [facility] [place] [id number] [id number] Dec, [facility] [address] [id number] Dec, Pre-operative cardiovascular examination Z01.810 ; PVD (peripheral vascular disease) I73.9 ; Anxiety F41.9 ; Rheumatoid arthritis, involving unspecified site, unspecified rheumatoid factor presence M06.9 ; Essential hypertension I10 ; Hyperlipidemia, unspecified hyperlipidemia type E78.5 and Hypotestosteronism E34.[address] [facility] [address] [id number], [place] [id number] Dec, [facility] [address] [id number], [place] [id number] Dec, Erectile dysfunction, unspecified erectile dysfunction type N52.9 and Hypotestosteronism E34.9 [facility] [address] [id number][place] [id number] Dec, Hypotestosteronism E34.9 [facility] [place] [address] [facility] [id number] [place] [id number] Nov, [facility] [address] [facility] [id number] [address] Nov, Hypotestosteronism E34.9 [facility] [place] [address] [facility] [id number] [place] [id number] Nov, Pure hypercholesterolemia E78.00 and Primary osteoarthritis, unspecified site M19.[address] [facility] [address] [id number], [place] [id number] Nov, [facility] [address] [facility] [id number], [place] [address] Nov, Tear of left glenoid labrum, subsequent encounter S43.432D [facility] [address] [id number], [place] [id number] Nov, Hypotestosteronism E34.9 [facility] [address] [id number], [place] [id number] Nov, [facility] [address] [id number][place] [id number] Nov, [facility] [address] [id number], [place] [id number] Nov, Erectile dysfunction, unspecified erectile dysfunction type N52.9 [facility] [address] [id number][place] [id number] Nov, Erectile dysfunction, unspecified erectile dysfunction type N52.9 [facility] [address] [id number], [place] [id number] Nov, Viral upper respiratory tract infection J06.9 and Erectile dysfunction, unspecified erectile dysfunction type N52.9 [facility] [address] [id number][place] [id number] Oct, [facility] [address] [facility] [address] [id number], [place] [id number] Oct, [facility] [address] [id number], [place] [id number] Oct, Fall on same level due to nature of surface, initial encounter W18.39XA and Erectile dysfunction, unspecified erectile dysfunction type N52.9 [facility] [address] [address] Sep, [facility] [address] [address] Sep, Tear of left rotator cuff, unspecified tear extent M75.102 and Primary osteoarthritis, 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 [place] [address] [address] Aug, Primary osteoarthritis, unspecified site M19.91 [facility] [address] [place] [id number] [place] [address] Jul, [facility] [address] [address] Jul, Primary osteoarthritis, unspecified site M19.91 [facility] [address] [place] [id number] [place] [address] Jul, Lumbago with sciatica, right side M54.41 [facility] [address] [place] [id number] [place] [address] Jul, Primary osteoarthritis, 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 and Injury of left rotator cuff, subsequent encounter S46.002D [facility] [address] [address] Jul, [facility] [address] [address] Jul, [facility] [address] [address] Jul, [place] [address] [place] [id number] [place] [address] Jul, Lumbago with sciatica, left side M54.42 ; Lumbago with sciatica, right side M54.41 ; Left shoulder pain, unspecified chronicity M25.512 and Essential hypertension I10 [place] [address] [id number] [place] [address] Jun, Lumbago with sciatica, left side M54.42 ; Lumbago with sciatica, right side M54.41 ; Left shoulder pain, unspecified chronicity M25.512 ; Essential hypertension I10 ; Heart murmur previously undiagnosed R01.1 ; Overweight E66.3 ; Anxiety F41.9 and Chronic prescription opiate use Z79.891 [place] [address] [place] [id number] [place] [address] Jun, Primary osteoarthritis, unspecified site M19.91 [place] [address] [place] [id number] [place] [address] Jun, [place] [address] [place] [id number] [place] [address] May, Primary osteoarthritis, unspecified site M19.91 [place] [address] [place] [id number] [place] [address] May, Injury of left rotator cuff, subsequent encounter S46.002D [place] [address] [place] [id number] [place] [address] May, [place] [address] [place] [id number] [place] [address] Apr, [place] [address] [address] Apr, PVD (peripheral vascular disease) I73.9 ; Right leg claudication I73.9 ; Hyperlipidemia, unspecified hyperlipidemia type E78.5 ; Occlusion of femoropopliteal bypass graft, 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 and Essential hypertension I10 [place] [address] [address] Apr, Left shoulder pain, unspecified chronicity M25.512 [facility] [address] [place] [address] Mar, Left shoulder pain, unspecified chronicity M25.512 [place] [address] [place] [id number] [place] [address] Mar, [place] [address] [place] [id number] [place] [address] Mar, [place] [address] [place] [id number] [place] [address] Mar, Dupuytren's contracture of hand M72.0 ; Essential hypertension I10 ; Pure hypercholesterolemia E78.00 ; Primary osteoarthritis, unspecified site M19.91 ; PVD (peripheral vascular disease) I73.9 and Moderate single current episode of major depressive disorder F32.1 [facility] [address] [place] [id number] Feb, Dental examination Z01.20 and Dental caries K02.9 [place] [address] [place] [address] Feb, Primary osteoarthritis, unspecified site M19.91 [place] [address] [place] [address] Feb, [place] [address] [place] [id number] [place] [address] Feb, [place] [address] [place] [id number] [place] [address] Nov, [place] [address] [place] [address] Nov, Dupuytren's contracture of hand M72.0 ; Pure hypercholesterolemia E78.00 ; Essential hypertension I10 ; PVD (peripheral vascular disease) I73.9 ; Primary osteoarthritis, unspecified site M19.91 and Rheumatoid arthritis, involving unspecified site, unspecified rheumatoid factor presence M06.9 [facility] [address] [facility] [id number] [place] [address] Nov, IMMUNIZATIONS No Known Immunizations SOCIAL HISTORY Never Assessed REASON FOR VISIT Earache in right ear started about three weeks ago. Went to ER three weeks ago and was treated with steroid and antibiotic. Patient states it got better and then this weekend it started hurting again. bferrisma, RX verified with patient PLAN OF CARE Activity Details Follow Up prn Reason: VITAL SIGNS Height 69 in 2018-03-27 Weight 257.0 lbs 2018-03-27 Temperature 96.9 degrees Fahrenheit 2018-03-27 Heart Rate 99 bpm 2018-03-27 Respiratory Rate 18 2018-03-27 Oximetry 99 % 2018-03-27 BMI 37.95 kg/m2 2018-03-27 Blood pressure systolic 151 mmHg 2018-03-27 Blood pressure diastolic 88 mmHg 2018-03-27 MEDICATIONS Medication Instructions Dosage Frequency Start Date End Date Duration Status Hydrocodone-Acetaminophen 5-325 MG Orally 3 times a day 1 tablet as needed 8h Nov, 28 Active Ciprofloxacin-Dexamethasone 0.3-0.1 % Otic Twice a day 4 drops into affected ear 12h Mar, 07 days Active Lisinopril-Hydrochlorothiazide 10-12.5 MG Orally Once a day 1 tablet 24h 90 days Active Tramadol HCl 50 MG Orally TID PRN TAKE ONE TABLET BY MOUTH THREE TIMES DAILY NEEDED 28 Active Tessalon Perles 100 mg Orally Three times a day 1 capsule as needed for cough 8h 13 Feb, 2018 Not-Taking Levofloxacin 0.5 % Otic Four times a day 2 drop into affected ear 6h MarMar, 07 days Active Cane - Active Plavix 75 MG Orally Once a day 1 tablet 24h Active Cyclobenzaprine HCl 10 mg Orally Three times a day 1 tablet as needed 8h Active Lipitor 20 mg Orally Once a day 1 tablet 24h 90 days Active Duloxetine HCl 60 mg Orally Once a day 1 capsule 24h Feb, 90 days Active Diazepam 10 mg Orally once, 30-60 min before procedure 1 tablet as needed Nov, 1 dose Active Testosterone Cypionate 200 MG/ML Intramuscular every two weeks 0.5 ml January, 0 days Active Aspirin Adult Low Dose 81 MG Orally Once a day 1 tablet 24h Active Cetirizine HCl 10 mg Orally Once a day 1 tablet 24h Nov, Active Lopid 600 MG Orally Twice a day 1 tablet 12h Nov, 30 day(s) Active RESULTS No Results PROCEDURES Procedure Date Ordered Result Body Site [facility] VISIT ESTABLISHED PATIENT March 27, 2018 INSTRUCTIONS MEDICATIONS ADMINISTERED No Known Medications MEDICAL (GENERAL) HISTORY Type Description Date Medical History dupuytren's contracture-hand bilateral Medical History hypertension Medical History hyperlipidemia Medical History Arthritis Medical History peripheral vascular disease Medical History rheumatoid arthritis Surgical History cervical fusion C3-C7 -[facility] 05/2015 Surgical History dupuytren's contracture-bilateral hands Surgical History Artery bypass in right leg Surgical History Occipital bone surgery right side Surgical History surgery near right eye Surgical History [place] Left shoulder replacement 01/13/2018 Hospitalization History Surgery(s) only Hospitalization History [facility] [place]- Cold Symptoms 03/03/2018
--- OUTSIDE RECORDS SUMMARY | 2018-12-22 13:52 | XMS REPORT ---
Author Author SINDY LANDAVERDE Organization [facility] Address [address] [place] [address] Care Team Providers Care Certified Activities Director Name Role Phone SINDY LANDAVERDE Unavailable PROBLEMS Type Condition ICD9-CM Code CMX01-JL Code Onset Dates Condition Status SNOMED Code Problem Lumbago with sciatica, left side M54.42 Active 921025352 Problem Chronic prescription opiate use Z79.891 Active 244470594 Problem Lumbago with sciatica, right side M54.41 Active 886358002979684 Problem Claustrophobia F40.240 Active 24271914 Problem Essential hypertension I10 Active 56085764 Problem Hypogonadism in male E29.1 Active 83101930 Problem Tear of left rotator cuff, unspecified tear extent M75.102 Active 2003822 Problem Left shoulder pain, unspecified chronicity M25.512 Active 35680289 Problem Hypotestosteronism E34.9 Active 6153227513593 Problem Erectile dysfunction, unspecified erectile dysfunction type N52.9 Active 286356258 Problem Primary osteoarthritis, unspecified site M19.91 Active 183952487 Problem Dupuytren's contracture of hand M72.0 Active 058253424 Problem PVD (peripheral vascular disease) I73.9 Active 169376174 Problem Rheumatoid arthritis, involving unspecified site, unspecified rheumatoid factor presence M06.9 Active 92567985 Problem Right leg claudication I73.9 Active 951710513 Problem Hyperlipidemia, unspecified hyperlipidemia type E78.5 Active 24492952 Problem Pure hypercholesterolemia E78.00 Active 546714517 Problem Primary osteoarthritis, 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 Active 33709198 Problem Moderate single current episode of major depressive disorder F32.1 Active 51004810 Problem Anxiety F41.9 Active 76561073 ALLERGIES No Information ENCOUNTERS Encounter Location Date Diagnosis [address] [id number] [id number] Apr, [facility] [address] [id number] [place] [id number] Mar, Hypotestosteronism E34.9 [facility] [address] [facility] [id number][place] [id number] Mar, Claustrophobia F40.[address] [facility] [address] [id number] [place] [id number] Mar, Hypotestosteronism E34.9 [facility] [address] [facility] [id number] [place] [address] Mar, Encounter for pre-operative laboratory testing Z01.[address] [facility] [address] [id number] [place] [id number] Mar, Acute otitis externa of right ear, unspecified type H60.501 ; Hypotestosteronism E34.9 and Encounter for pre-operative laboratory testing Z01.[address] [facility] [address] [id number] [place] [id number] Mar, [facility] [address] [id number] [place] [id number] Mar, Hypogonadism in male E29.1 and Hypotestosteronism E34.[address] [facility] [address] [id number] [place] [address] Mar, Acute otitis externa of right ear, unspecified type H60.[address] [facility] [address] [id number] [place] [id number] Mar, Hypotestosteronism E34.9 [facility] [address] [id number] [place] [id number] Feb, [facility] [address] [facility] [id number][place] [id number] Feb, PVD (peripheral vascular disease) I73.9 ; Pure hypercholesterolemia E78.00 and Primary osteoarthritis, unspecified site M19.[address] [facility] [address] [id number] [place] [address] Feb, Hypotestosteronism E34.9 [facility] [address] [id number] [place] [id number] Feb, Upper respiratory infection, viral J06.[address] [facility] [address] [id number] [place] [id number] Feb, Hypotestosteronism E34.9 [facility] [address] [address] January, [facility] [address] [id number] [place] [id number] January, Hypotestosteronism E34.9 [facility] [address] [facility] [address] [id number] [place], [place] [address] January, Hypotestosteronism E34.9 [facility] [address]00565100[place] [id number] Dec, [facility] [address] [address] [facility] [address] [id number] [place], [place] [id number] Dec, Erectile dysfunction, unspecified erectile dysfunction type N52.9 [facility] [address]00565100[place] [id number] Dec, [facility] [address]65100[place] [address] Dec, Pre-operative cardiovascular examination Z01.810 ; PVD (peripheral vascular disease) I73.9 ; Anxiety F41.9 ; Rheumatoid arthritis, involving unspecified site, unspecified rheumatoid factor presence M06.9 ; Essential hypertension I10 ; Hyperlipidemia, unspecified hyperlipidemia type E78.5 and Hypotestosteronism E34.[address] [facility] [address] [id number] [place], [place] [id number] Dec, [facility] [address] [id number] [place], [place] [id number] Dec, Erectile dysfunction, unspecified erectile dysfunction type N52.9 and Hypotestosteronism E34.[address] [facility] [address] [id number] [place] [id number] Dec, Hypotestosteronism E34.9 [facility] [place] [address] [facility] [id number], [place] [id number] Nov, [facility] [address] [facility] [id number] [place] [address] Nov, Hypotestosteronism E34.9 [facility] [place] [address] [facility] [id number], [place] [id number] Nov, Pure hypercholesterolemia E78.00 and Primary osteoarthritis, unspecified site M19.91 [facility] [address] [id number] CITY, [place] [id number] Nov, [facility] [address] [facility] [id number], [place] [address] Nov, Tear of left glenoid labrum, subsequent encounter S43.432D [facility] [address] [id number] [place], [place] [id number] Nov, Hypotestosteronism E34.9 [facility] [address] [id number] [place], [place] [address] Nov, [facility] [address] [id number] [place], [place] [address] Nov, [facility] [address] [id number] CITY, [place] [id number] Nov, Erectile dysfunction, unspecified erectile dysfunction type N52.9 [facility] [address] [id number] [place], [place] [address] Nov, Erectile dysfunction, unspecified erectile dysfunction type N52.9 [facility] [address] [id number] [place] [id number] Nov, 2017 Viral upper respiratory tract infection J06.9 and Erectile dysfunction, unspecified erectile dysfunction type N52.[address] [facility] [address] [id number] [place] [address] Oct, [facility] [address] [id number] [place], [place] [address] Oct, [facility] [address] [id number] [place], [place] [id number] Oct, Fall on same level due to nature of surface, initial encounter W18.39XA and Erectile dysfunction, unspecified erectile dysfunction type N52.9 [facility] [id number] [place] [address] Sep, [facility] [id number] [place] [address] Sep, Tear of left rotator cuff, unspecified tear extent M75.102 and Primary osteoarthritis, 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 [facility] [id number] [place] [address]60[address] Aug, Primary osteoarthritis, unspecified site M19.91 [facility] [id number] [place] [address]75- 7063 Jul, [facility] [id number] [place] [address]8060- 5947 Jul, Primary osteoarthritis, unspecified site M19.91 [facility] [id number] [place] [address] 28438- 6803 Jul, Lumbago with sciatica, right side M54.41 [facility] [id number] [place] [address]19[address] 6534 Jul, Primary osteoarthritis, 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 and Injury of left rotator cuff, subsequent encounter S46.002D [facility] [id number] [place] [address]74[address] 6068 Jul, [facility] [id number] [place] [address] 30222[address] 9999 Jul, [facility] [id number] [place] [address] 88222- 3265 Jul, [facility] [address]26[place] [address] Jul, Lumbago with sciatica, left side M54.42 ; Lumbago with sciatica, right side M54.41 ; Left shoulder pain, unspecified chronicity M25.512 and Essential hypertension I10 [place] [id number] [place] [address] Jun, Lumbago with sciatica, left side M54.42 ; Lumbago with sciatica, right side M54.41 ; Left shoulder pain, unspecified chronicity M25.512 ; Essential hypertension I10 ; Heart murmur previously undiagnosed R01.1 ; Overweight E66.3 ; Anxiety F41.9 and Chronic prescription opiate use Z79.891 [place] [id number] [place] [address]250- 2362 Jun, Primary osteoarthritis, unspecified site M19.91 [place] [facility] [id number] [place] [address] 32160- 0268 Jun, [place] [id number] [place] [address] 29374- 2216 May, Primary osteoarthritis, unspecified site M19.91 [place] [id number] [place] [address] 28716- 3211 May, Injury of left rotator cuff, subsequent encounter S46.002D [place] [id number] [place] [address] 26768- 0592 May, [place] [id number] [place] [address] 63561- 7713 Apr, [place] [address] [address] Apr, PVD (peripheral vascular disease) I73.9 ; Right leg claudication I73.9 ; Hyperlipidemia, unspecified hyperlipidemia type E78.5 ; Occlusion of femoropopliteal bypass graft, 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 and Essential hypertension I10 [place] [address] [place] [address] Apr, Left shoulder pain, unspecified chronicity M25.512 [facility] [id number] [place] [address] 84612- 5688 Mar, Left shoulder pain, unspecified chronicity M25.512 [facility] [id number] [place] [address] 65528- 3843 Mar, [place] [id number] [place] [address] 16555- 48[address] Mar, [facility] [id number] [place] [address] 06565- 6832 Mar, Dupuytren's contracture of hand M72.0 ; Essential hypertension I10 ; Pure hypercholesterolemia E78.00 ; Primary osteoarthritis, unspecified site M19.91 ; PVD (peripheral vascular disease) I73.9 and Moderate single current episode of major depressive disorder F32.1 [facility] [id number] [place] [id number] Feb, Dental examination Z01.20 and Dental caries K02.9 [place] [id number] [place] [address] 51580- 4596 Feb, Primary osteoarthritis, unspecified site M19.91 [facility] [address] [place] [address] 46146- 4830 Feb, [facility] [address] [place] [address] 64908- 9768 Feb, [facility] [id number] [place] [address] 72858- 5383 Nov, [facility] [id number] [place] [address] 29205- 5390 Nov, Dupuytren's contracture of hand M72.0 ; Pure hypercholesterolemia E78.00 ; Essential hypertension I10 ; PVD (peripheral vascular disease) I73.9 ; Primary osteoarthritis, unspecified site M19.91 and Rheumatoid arthritis, involving unspecified site, unspecified rheumatoid factor presence M06.9 [facility] [address] [facility] [id number] [place] [address] Nov, IMMUNIZATIONS No Known Immunizations SOCIAL HISTORY Never Assessed REASON FOR VISIT MRI PLAN OF CARE VITAL SIGNS MEDICATIONS Unknown Medications RESULTS No Results PROCEDURES No Known procedures INSTRUCTIONS MEDICATIONS ADMINISTERED No Known Medications MEDICAL (GENERAL) HISTORY Type Description Date Medical History dupuytren's contracture-hand bilateral Medical History hypertension Medical History hyperlipidemia Medical History Arthritis Medical History peripheral vascular disease Medical History rheumatoid arthritis Surgical History cervical fusion C3-C7 -[facility] 05/2015 Surgical History dupuytren's contracture-bilateral hands Surgical History Artery bypass in right leg Surgical History Occipital bone surgery right side Surgical History surgery near right eye Surgical History [place] Left shoulder replacement 01/13/2018 Hospitalization History Surgery(s) only Hospitalization History [facility]- Cold Symptoms 03/03/2018
--- OUTSIDE RECORDS SUMMARY | 2018-12-22 13:53 | XMS REPORT ---
Author Author SINDY LANDAVERDE Organization [facility] Address [address] [place] [address] Care Team Providers Care Mobile Home Technician Name Role Phone SINDY LANDAVERDE Unavailable PROBLEMS Type Condition ICD9-CM Code [id number] Code Onset Dates Condition Status SNOMED Code Problem Lumbago with sciatica, left side M54.42 Active 641945250 Problem Chronic prescription opiate use Z79.891 Active 251723323 Problem Lumbago with sciatica, right side M54.41 Active 970153368130004 Problem Claustrophobia F40.240 Active 35713435 Problem Essential hypertension I10 Active 17771685 Problem Hypogonadism in male E29.1 Active 57655196 Problem Tear of left rotator cuff, unspecified tear extent M75.102 Active 8321584 Problem Left shoulder pain, unspecified chronicity M25.512 Active 50482837 Problem Hypotestosteronism E34.9 Active 0978180044810 Problem Erectile dysfunction, unspecified erectile dysfunction type N52.9 Active 193238972 Problem Primary osteoarthritis, unspecified site M19.91 Active 046612877 Problem Dupuytren's contracture of hand M72.0 Active 221526014 Problem PVD (peripheral vascular disease) I73.9 Active 985441474 Problem Rheumatoid arthritis, involving unspecified site, unspecified rheumatoid factor presence M06.9 Active 66543935 Problem Right leg claudication I73.9 Active 955627254 Problem Hyperlipidemia, unspecified hyperlipidemia type E78.5 Active 17028853 Problem Pure hypercholesterolemia E78.00 Active 408994933 Problem Primary osteoarthritis, 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 Active 73645874 Problem Moderate single current episode of major depressive disorder F32.1 Active 20923007 Problem Anxiety F41.9 Active 62203670 ALLERGIES No Information ENCOUNTERS Encounter Location Date Diagnosis [address] [id number] [id number] Apr, [facility] [address] [id number][place] [id number] Mar, Hypotestosteronism E34.9 [facility] [place] [address] [facility] [id number] [id number] Mar, Claustrophobia F40.[address] [facility] [address] [id number][place] [id number] Mar, Hypotestosteronism E34.9 [facility] [address] [facility] [id number] [place] [address] Mar, Encounter for pre-operative laboratory testing Z01.[address] [facility] [address] [id number][place] [address] Mar, Acute otitis externa of right ear, unspecified type H60.501 ; Hypotestosteronism E34.9 and Encounter for pre-operative laboratory testing Z01.[address] [facility] [address] [id number][place] [id number] Mar, [facility] [address] [id number][place] [address] Mar, Hypogonadism in male E29.1 and Hypotestosteronism E34.[address] [facility] [address] [id number][place] [id number] Mar, Acute otitis externa of right ear, unspecified type H60.[address] [facility] [address] [id number][place] [id number] Mar, Hypotestosteronism E34.9 [facility] [address] [id number][place] [id number] Feb, [facility] [address] [facility] [id number] [place] [id number] Feb, PVD (peripheral vascular disease) I73.9 ; Pure hypercholesterolemia E78.00 and Primary osteoarthritis, unspecified site M19.[address] [facility] [address] [id number][place] [id number] Feb, Hypotestosteronism E34.9 [facility] [address] [id number], [place] [address] Feb, Upper respiratory infection, viral J06.[address] [facility] [address] [id number][place] [address] Feb, Hypotestosteronism E34.9 [facility] [address]65[place] [id number] January, [facility] [address] [id number][place] [address] January, Hypotestosteronism E34.9 [facility] [address] [facility] [address] [id number][place] [id number] January, Hypotestosteronism E34.9 [facility] [address]65100[place] [id number] Dec, [facility] [address] [address] [facility] [address] [id number], [place] [id number] Dec, Erectile dysfunction, unspecified erectile dysfunction type N52.9 [facility] [address]65100[place] [id number] Dec, [facility] [address] [address] Dec, Pre-operative cardiovascular examination Z01.810 ; PVD (peripheral vascular disease) I73.9 ; Anxiety F41.9 ; Rheumatoid arthritis, involving unspecified site, unspecified rheumatoid factor presence M06.9 ; Essential hypertension I10 ; Hyperlipidemia, unspecified hyperlipidemia type E78.5 and Hypotestosteronism E34.[address] [facility] [address] [id number][place] [id number] Dec, [facility] [address] [id number], [place] [id number] Dec, Erectile dysfunction, unspecified erectile dysfunction type N52.9 and Hypotestosteronism E34.[address] [facility] [address] [id number] [place] [id number] Dec, Hypotestosteronism E34.9 [facility] [address] [facility] [id number] CREEK[place] [address] Nov, [facility] [address] [facility] [id number] [place] [address] Nov, Hypotestosteronism E34.9 [facility] [address] [facility] [id number] CREEK[place] [id number] Nov, Pure hypercholesterolemia E78.00 and Primary osteoarthritis, unspecified site M19.91 [facility] [address] [id number], [place] [id number] Nov, [facility] [address] [facility] [id number], [place] [address] Nov, Tear of left glenoid labrum, subsequent encounter S43.432D [facility] [address] [id number], [place] [address] Nov, Hypotestosteronism E34.9 [facility] [address] [id number], [place] [id number] Nov, [facility] [address] [id number], [place] [id number] Nov, [facility] [address] [id number], [place] [address] Nov, Erectile dysfunction, unspecified erectile dysfunction type N52.9 [facility] [address] [id number], [place] [id number] Nov, Erectile dysfunction, unspecified erectile dysfunction type N52.9 [facility] [address] [id number] [place] [id number] Nov, 2017 Viral upper respiratory tract infection J06.9 and Erectile dysfunction, unspecified erectile dysfunction type N52.[address] [facility] [address] [id number] [place] [id number] Oct, [facility] [address] [id number], [place] [address] Oct, [facility] [address] [id number], [place] [id number] Oct, Fall on same level due to nature of surface, initial encounter W18.39XA and Erectile dysfunction, unspecified erectile dysfunction type N52.9 [facility] [id number] [place] [address] Sep, [facility] [id number] [place] [address] Sep, Tear of left rotator cuff, unspecified tear extent M75.102 and Primary osteoarthritis, 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 [facility] [id number] [place] [address]21[address]67 Aug, Primary osteoarthritis, unspecified site M19.91 [facility] [id number] [place] [address] Jul, [facility] [id number] [place] [address]87[address]474 Jul, Primary osteoarthritis, unspecified site M19.91 [facility] [id number] [place] [address] 16800[address]26 Jul, Lumbago with sciatica, right side M54.41 [facility] [id number] [place] [address] 45927[address]77 Jul, Primary osteoarthritis, 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 and Injury of left rotator cuff, subsequent encounter S46.002D [facility] [id number] [place] [address] 94544- [address]676 Jul, [facility] [id number] [place] [address] 16457[address] 2908 Jul, [facility] [id number] [place] [address] 41815- 3281 Jul, [facility] [id number] [address] Jul, Lumbago with sciatica, left side M54.42 ; Lumbago with sciatica, right side M54.41 ; Left shoulder pain, unspecified chronicity M25.512 and Essential hypertension I10 [place] [id number] [place] [address] 57742[address] 6[address] Jun, Lumbago with sciatica, left side M54.42 ; Lumbago with sciatica, right side M54.41 ; Left shoulder pain, unspecified chronicity M25.512 ; Essential hypertension I10 ; Heart murmur previously undiagnosed R01.1 ; Overweight E66.3 ; Anxiety F41.9 and Chronic prescription opiate use Z79.891 [place] [id number] [place] [address] 22937- 3[address] Jun, Primary osteoarthritis, unspecified site M19.91 [place] [id number] [place] [address] 14271[address] 7938 Jun, [place] [id number] [place] [address] 17480- 6435 May, Primary osteoarthritis, unspecified site M19.91 [place] [id number] [place] [address] 05817- 4332 May, Injury of left rotator cuff, subsequent encounter S46.002D [place] [id number] [place] [address] 24799- 7620 May, [place] [id number] [place] [address] 67755- 6485 Apr, [place] [address] [address] Apr, PVD (peripheral vascular disease) I73.9 ; Right leg claudication I73.9 ; Hyperlipidemia, unspecified hyperlipidemia type E78.5 ; Occlusion of femoropopliteal bypass graft, 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 and Essential hypertension I10 [place] [address] [place] [address] Apr, Left shoulder pain, unspecified chronicity M25.512 [facility] [id number] [place] [address] 88420- 9039 Mar, Left shoulder pain, unspecified chronicity M25.512 [facility] [id number] [place] [address] 86138- 1788 Mar, [place] [id number] [place] [address] 63977- 3792 Mar, [facility] [id number] [place] [address] 11783- 4216 Mar, Dupuytren's contracture of hand M72.0 ; Essential hypertension I10 ; Pure hypercholesterolemia E78.00 ; Primary osteoarthritis, unspecified site M19.91 ; PVD (peripheral vascular disease) I73.9 and Moderate single current episode of major depressive disorder F32.1 [facility] [id number] [place] [id number] Feb, Dental examination Z01.20 and Dental caries K02.9 [place] [id number] [place] [address] 21060- 1489 Feb, Primary osteoarthritis, unspecified site M19.91 [facility] [address] [place] [address] 28978- 6821 Feb, [facility] [id number] [place] [address] 29237- 2414 Feb, [facility] [id number] [place] [address] 40062- 1162 Nov, [facility] [id number] [place] [address] 20910- 6469 Nov, Dupuytren's contracture of hand M72.0 ; Pure hypercholesterolemia E78.00 ; Essential hypertension I10 ; PVD (peripheral vascular disease) I73.9 ; Primary osteoarthritis, unspecified site M19.91 and Rheumatoid arthritis, involving unspecified site, unspecified rheumatoid factor presence M06.9 [facility] [address] [facility] [id number] [place] [address] Nov, IMMUNIZATIONS No Known Immunizations SOCIAL HISTORY Never Assessed REASON FOR VISIT Repository Medication PLAN OF CARE VITAL SIGNS MEDICATIONS Unknown Medications RESULTS No Results PROCEDURES No Known procedures INSTRUCTIONS MEDICATIONS ADMINISTERED No Known Medications MEDICAL (GENERAL) HISTORY Type Description Date Medical History dupuytren's contracture-hand bilateral Medical History hypertension Medical History hyperlipidemia Medical History Arthritis Medical History peripheral vascular disease Medical History rheumatoid arthritis Surgical History cervical [facility] C3-C7 [facility] 05/2015 Surgical History dupuytren's contracture-bilateral hands Surgical History Artery bypass in right leg Surgical History Occipital bone surgery right side Surgical History surgery near right eye Surgical History [place] Left shoulder replacement 01/13/2018 Hospitalization History Surgery(s) only Hospitalization History [facility] [place]- Cold Symptoms 03/03/2018
--- OUTSIDE RECORDS SUMMARY | 2018-12-22 13:53 | XMS REPORT ---
Author Author SINDY LANDAVERDE Organization [facility] Address [address] [place] [address] Care Team Providers Care Stoner Out Name Role Phone SINDY LANDAVERDE Unavailable PROBLEMS Type Condition ICD9-CM Code RAN40-OX Code Onset Dates Condition Status SNOMED Code Problem Lumbago with sciatica, left side M54.42 Active 940140858 Problem Chronic prescription opiate use Z79.891 Active 442827621 Problem Lumbago with sciatica, right side M54.41 Active 844206149528892 Problem Claustrophobia F40.240 Active 22195866 Problem Essential hypertension I10 Active 66773378 Problem Hypogonadism in male E29.1 Active 71450157 Problem Tear of left rotator cuff, unspecified tear extent M75.102 Active 3510757 Problem Left shoulder pain, unspecified chronicity M25.512 Active 39310488 Problem Hypotestosteronism E34.9 Active 1822423486172 Problem Erectile dysfunction, unspecified erectile dysfunction type N52.9 Active 758032539 Problem Primary osteoarthritis, unspecified site M19.91 Active 600537119 Problem Dupuytren's contracture of hand M72.0 Active 768256161 Problem PVD (peripheral vascular disease) I73.9 Active 473157023 Problem Rheumatoid arthritis, involving unspecified site, unspecified rheumatoid factor presence M06.9 Active 60024349 Problem Right leg claudication I73.9 Active 714333011 Problem Hyperlipidemia, unspecified hyperlipidemia type E78.5 Active 00337434 Problem Pure hypercholesterolemia E78.00 Active 317955230 Problem Primary osteoarthritis, 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 Active 63176189 Problem Moderate single current episode of major depressive disorder F32.1 Active 32619403 Problem Anxiety F41.9 Active 97660025 ALLERGIES No Information ENCOUNTERS Encounter Location Date Diagnosis [address] [id number][place] [id number] Apr, [facility] [address] [id number][place] [id number] Mar, Hypotestosteronism E34.9 [facility] [place] [address] [facility] [id number] [id number] Mar, Claustrophobia F40.[address] [facility] [address] [id number], [place] [id number] Mar, Hypotestosteronism E34.9 [facility] [address] [facility] [id number] [place] [address] Mar, Encounter for pre-operative laboratory testing Z01.[address] [facility] [address] [id number][place] [id number] Mar, Acute otitis externa of right ear, unspecified type H60.501 ; Hypotestosteronism E34.9 and Encounter for pre-operative laboratory testing Z01.[address] [facility] [address] [id number][place] [id number] Mar, [facility] [address] [id number], [place] [id number] Mar, Hypogonadism in male E29.1 and Hypotestosteronism E34.[address] [facility] [address] [id number][place] [id number] Mar, Acute otitis externa of right ear, unspecified type H60.[address] [facility] [address] [id number][place] [id number] Mar, Hypotestosteronism E34.9 [facility] [address] [id number][place] [id number] Feb, [facility] [address] [facility] [id number][place] [id number] Feb, PVD (peripheral vascular disease) I73.9 ; Pure hypercholesterolemia E78.00 and Primary osteoarthritis, unspecified site M19.[address] [facility] [address] [id number], [place] [id number] Feb, Hypotestosteronism E34.9 [facility] [address] [id number][place] [id number] Feb, Upper respiratory infection, viral J06.[address] [facility] [address] [id number], [place] [id number] Feb, Hypotestosteronism E34.9 [facility] [address]65100[place] [id number] January, [facility] [address] [id number], [place] [id number] January, Hypotestosteronism E34.9 [facility] [address] [facility] [address] [id number][place] [id number] January, Hypotestosteronism E34.9 [facility] [address]65100[place] [id number] Dec, [facility] [address] [facility] [address] [id number], [place] [id number] Dec, Erectile dysfunction, unspecified erectile dysfunction type N52.9 [facility] [address]65100[place] [id number] Dec, [facility] [address]65100[place] [id number] Dec, Pre-operative cardiovascular examination Z01.810 ; PVD (peripheral vascular disease) I73.9 ; Anxiety F41.9 ; Rheumatoid arthritis, involving unspecified site, unspecified rheumatoid factor presence M06.9 ; Essential hypertension I10 ; Hyperlipidemia, unspecified hyperlipidemia type E78.5 and Hypotestosteronism E34.[address] [facility] [address] [id number], [place] [id number] Dec, [facility] [address] [id number], [place] [id number] Dec, Erectile dysfunction, unspecified erectile dysfunction type N52.9 and Hypotestosteronism E34.[address] [facility] [address] [id number] [place] [id number] Dec, Hypotestosteronism E34.9 [facility] [place] [address] [facility] [id number][place] [id number] Nov, [facility] [address] [facility] [id number] [place] [address] Nov, Hypotestosteronism E34.9 [facility] [place] [address] [facility] [id number][place] [id number] Nov, Pure hypercholesterolemia E78.00 and Primary osteoarthritis, unspecified site M19.91 [facility] [address] [id number], [place] [id number] Nov, [facility] [address] [facility] [id number] [address] Nov, Tear of left glenoid labrum, subsequent encounter S43.432D [facility] [address] [id number], [place] [id number] Nov, Hypotestosteronism E34.9 [facility] [address] [id number], [place] [id number] Nov, [facility] [address] [id number], [place] [id number] Nov, [facility] [address] [id number], [place] [id number] Nov, Erectile dysfunction, unspecified erectile dysfunction type N52.9 [facility] [address] [id number], [place] [id number] Nov, Erectile dysfunction, unspecified erectile dysfunction type N52.9 [facility] [address] [id number] [place] [id number] Nov, 2017 Viral upper respiratory tract infection J06.9 and Erectile dysfunction, unspecified erectile dysfunction type N52.[address] [facility] [address] [id number] [place] [id number] Oct, [facility] [address] [id number], [place] [id number] Oct, [facility] [address] [id number], [place] [id number] Oct, Fall on same level due to nature of surface, initial encounter W18.39XA and Erectile dysfunction, unspecified erectile dysfunction type N52.9 [facility] [id number] [place] [address] Sep, [facility] [id number] [place] [address] Sep, Tear of left rotator cuff, unspecified tear extent M75.102 and Primary osteoarthritis, 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 [facility] [id number] [place] [address] Aug, Primary osteoarthritis, unspecified site M19.91 [facility] [id number] [place] [address] Jul, [facility] [id number] [place] [address] 00905- 2489 Jul, Primary osteoarthritis, unspecified site M19.91 [facility] [id number] [place] [address] 41813- 4780 Jul, Lumbago with sciatica, right side M54.41 [facility] [id number] [place] [address] 56139- [address]379 Jul, Primary osteoarthritis, 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 and Injury of left rotator cuff, subsequent encounter S46.002D [facility] [id number] [place] [address] 87564- 3788 Jul, [facility] [id number] [place] [address] 01737- 0336 Jul, [facility] [id number] [place] [address] 19155- 0657 Jul, [facility] [address] [place] [address] Jul, Lumbago with sciatica, left side M54.42 ; Lumbago with sciatica, right side M54.41 ; Left shoulder pain, unspecified chronicity M25.512 and Essential hypertension I10 [place] [id number] [place] [address] 35397- 28[address] Jun, Lumbago with sciatica, left side M54.42 ; Lumbago with sciatica, right side M54.41 ; Left shoulder pain, unspecified chronicity M25.512 ; Essential hypertension I10 ; Heart murmur previously undiagnosed R01.1 ; Overweight E66.3 ; Anxiety F41.9 and Chronic prescription opiate use Z79.891 [place] [id number] [place] [address] 78357- 1558 Jun, Primary osteoarthritis, unspecified site M19.91 [place] [id number] [place] [address] 31360- 2506 Jun, [place] [id number] [place] [address] 40238- 4176 May, Primary osteoarthritis, unspecified site M19.91 [place] [id number] [place] [address] 38110- 5568 May, Injury of left rotator cuff, subsequent encounter S46.002D [place] [id number] [place] [address] 36782- 6003 May, [place] [id number] [place] [address] 98388- 0446 Apr, [place] [address] [address] Apr, PVD (peripheral vascular disease) I73.9 ; Right leg claudication I73.9 ; Hyperlipidemia, unspecified hyperlipidemia type E78.5 ; Occlusion of femoropopliteal bypass graft, 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 and Essential hypertension I10 [place] [address] [address] [place] [address] Apr, Left shoulder pain, unspecified chronicity M25.512 [facility] [id number] [place] [address] 06116- 5134 Mar, Left shoulder pain, unspecified chronicity M25.512 [facility] [id number] [place] [address] 20909- 9355 Mar, [place] [id number] [place] [address] 70356- 8629 Mar, [facility] [id number] [place] [address] 02253- 6073 Mar, Dupuytren's contracture of hand M72.0 ; Essential hypertension I10 ; Pure hypercholesterolemia E78.00 ; Primary osteoarthritis, unspecified site M19.91 ; PVD (peripheral vascular disease) I73.9 and Moderate single current episode of major depressive disorder F32.1 [facility] [id number] [place] [id number] Feb, Dental examination Z01.20 and Dental caries K02.9 [place] [id number] [place] [address] 93052- 8486 Feb, Primary osteoarthritis, unspecified site M19.91 [facility] [address] [place] [address] 55644- 1719 Feb, [facility] [address] [place] [address] 85001- 5692 Feb, [facility] [id number] [place] [address] 83319- 6286 Nov, [facility] [id number] [place] [address] 48095- 8887 Nov, Dupuytren's contracture of hand M72.0 ; Pure hypercholesterolemia E78.00 ; Essential hypertension I10 ; PVD (peripheral vascular disease) I73.9 ; Primary osteoarthritis, unspecified site M19.91 and Rheumatoid arthritis, involving unspecified site, unspecified rheumatoid factor presence M06.9 [facility] [address] [facility] [id number] [place] [address] Nov, IMMUNIZATIONS No Known Immunizations SOCIAL HISTORY Never Assessed REASON FOR VISIT Med Rx Reprint PLAN OF CARE VITAL SIGNS MEDICATIONS Medication Instructions Dosage Frequency Start Date End Date Duration Status Testosterone Cypionate 200 MG/ML Intramuscular q2 weeks 1 ml Mar, 30 days Active RESULTS No Results PROCEDURES No Known procedures INSTRUCTIONS MEDICATIONS ADMINISTERED No Known Medications MEDICAL (GENERAL) HISTORY Type Description Date Medical History dupuytren's contracture-hand bilateral Medical History hypertension Medical History hyperlipidemia Medical History Arthritis Medical History peripheral vascular disease Medical History rheumatoid arthritis Surgical History cervical fusion C3-C7 [facility] 05/2015 Surgical History dupuytren's contracture-bilateral hands Surgical History Artery bypass in right leg Surgical History Occipital bone surgery right side Surgical History surgery near right eye Surgical History [place] Left shoulder replacement 01/13/2018 Hospitalization History Surgery(s) only Hospitalization History [facility] [place]- Cold Symptoms 03/03/2018
--- OUTSIDE RECORDS SUMMARY | 2018-12-22 13:53 | XMS REPORT ---
Author Author SINDY LANDAVERDE Organization [facility] Address [address] [place] [address] Care Team Providers Care [employer] Professor Name Role Phone SINDY LANDAVERDE Unavailable PROBLEMS Type Condition ICD9-CM Code HOB22-ZV Code Onset Dates Condition Status SNOMED Code Problem Lumbago with sciatica, left side M54.42 Active 201309168 Problem Chronic prescription opiate use Z79.891 Active 049734490 Problem Lumbago with sciatica, right side M54.41 Active 432905243490383 Problem Claustrophobia F40.240 Active 97845763 Problem Essential hypertension I10 Active 40854445 Problem Hypogonadism in male E29.1 Active 35827671 Problem Tear of left rotator cuff, unspecified tear extent M75.102 Active 8967014 Problem Left shoulder pain, unspecified chronicity M25.512 Active 53742880 Problem Hypotestosteronism E34.9 Active 1584878070725 Problem Erectile dysfunction, unspecified erectile dysfunction type N52.9 Active 517393869 Problem Primary osteoarthritis, unspecified site M19.91 Active 939335778 Problem Dupuytren's contracture of hand M72.0 Active 408901696 Problem PVD (peripheral vascular disease) I73.9 Active 939633108 Problem Rheumatoid arthritis, involving unspecified site, unspecified rheumatoid factor presence M06.9 Active 45582780 Problem Right leg claudication I73.9 Active 313564928 Problem Hyperlipidemia, unspecified hyperlipidemia type E78.5 Active 98024552 Problem Pure hypercholesterolemia E78.00 Active 892846337 Problem Primary osteoarthritis, 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 Active 24931184 Problem Moderate single current episode of major depressive disorder F32.1 Active 36377558 Problem Anxiety F41.9 Active 78122255 ALLERGIES No Information ENCOUNTERS Encounter Location Date Diagnosis [address] [id number] [id number] Apr, [facility] [address] [id number] [id number] Mar, Hypotestosteronism E34.9 [facility] [address] [facility] [id number] [place] [id number] Mar, Claustrophobia F40.[address] [facility] [address] [id number] [id number] Mar, Hypotestosteronism E34.9 [facility] [address] [facility] [id number] [place] [address] Mar, Encounter for pre-operative laboratory testing Z01.[address] [facility] [address] [id number] [id number] Mar, Acute otitis externa of right ear, unspecified type H60.501 ; Hypotestosteronism E34.9 and Encounter for pre-operative laboratory testing Z01.[address] [facility] [address] [id number] [id number] Mar, [facility] [address] [id number][place] [id number] Mar, Hypogonadism in male E29.1 and Hypotestosteronism E34.[address] [facility] [address] [id number] [id number] Mar, Acute otitis externa of right ear, unspecified type H60.[address] [facility] [address] [id number] [id number] Mar, Hypotestosteronism E34.9 [facility] [address] [id number][place] [id number] Feb, [facility] [address] [facility] [id number] [place] [id number] Feb, PVD (peripheral vascular disease) I73.9 ; Pure hypercholesterolemia E78.00 and Primary osteoarthritis, unspecified site M19.[address] [facility] [address] [id number][place] [id number] Feb, Hypotestosteronism E34.9 [facility] [address] [id number][place] [id number] Feb, Upper respiratory infection, viral J06.[address] [facility] [address] [id number] [id number] Feb, Hypotestosteronism E34.9 [facility] [address] [place] [id number] January, [facility] [address] [id number], [place] [id number] January, Hypotestosteronism E34.9 [facility] [address] [facility] [address] [id number][place] [id number] January, Hypotestosteronism E34.9 [facility] [address] [id number] Dec, [facility] [address] [facility] [address] [id number][place] [id number] Dec, Erectile dysfunction, unspecified erectile dysfunction type N52.9 [facility] [address] [id number] Dec, [facility] [address] [id number] Dec, Pre-operative cardiovascular examination Z01.810 ; PVD (peripheral vascular disease) I73.9 ; Anxiety F41.9 ; Rheumatoid arthritis, involving unspecified site, unspecified rheumatoid factor presence M06.9 ; Essential hypertension I10 ; Hyperlipidemia, unspecified hyperlipidemia type E78.5 and Hypotestosteronism E34.[address] [facility] [address] [id number][place] [id number] Dec, [facility] [address] [id number], [place] [id number] Dec, Erectile dysfunction, unspecified erectile dysfunction type N52.9 and Hypotestosteronism E34.[address] [facility] [address] [id number] [place] [id number] Dec, Hypotestosteronism E34.9 [facility] [address] [facility] [id number] [place] [id number] Nov, [facility] [address] [facility] [id number] [place] [address] Nov, Hypotestosteronism E34.9 [facility] [address] [facility] [id number] [place] [id number] Nov, Pure hypercholesterolemia E78.00 and Primary osteoarthritis, unspecified site M19.91 [facility] [address] [id number][place] [id number] Nov, [facility] [address] [facility] [id number], [place] [address] Nov, Tear of left glenoid labrum, subsequent encounter S43.432D [facility] [address] [id number], [place] [id number] Nov, Hypotestosteronism E34.9 [facility] [address] [id number], [place] [id number] Nov, [facility] [address] [id number], [place] [id number] Nov, [facility] [address] [id number], [place] [id number] Nov, Erectile dysfunction, unspecified erectile dysfunction type N52.9 [facility] [address] [id number][place] [id number] Nov, Erectile dysfunction, unspecified erectile dysfunction type N52.9 [facility] [address] [id number] [place] [id number] Nov, 2017 Viral upper respiratory tract infection J06.9 and Erectile dysfunction, unspecified erectile dysfunction type N52.[address] [facility] [address] [id number] [place] [id number] Oct, [facility] [address] [id number], [place] [id number] Oct, [facility] [address] [id number] [address] Oct, Fall on same level due to nature of surface, initial encounter W18.39XA and Erectile dysfunction, unspecified erectile dysfunction type N52.9 [facility] [id number] [place] [address] Sep, [facility] [id number] [place] [address]223[address] Sep, Tear of left rotator cuff, unspecified tear extent M75.102 and Primary osteoarthritis, 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 [facility] [id number] [place] [address]1575[address] Aug, Primary osteoarthritis, unspecified site M19.91 [facility] [id number] [place] [address]162[address] Jul, [facility] [id number] [place] [address]96[address]344 Jul, Primary osteoarthritis, unspecified site M19.91 [facility] [id number] [place] [address]10- [address] Jul, Lumbago with sciatica, right side M54.41 [facility] [id number] [place] [address] 86757- 1833 Jul, Primary osteoarthritis, 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 and Injury of left rotator cuff, subsequent encounter S46.002D [facility] [id number] [place] [address] 72841- [address] Jul, [facility] [id number] [place] [address] 92886- 5580 Jul, [facility] [id number] [place] [address] 41006[address] 5958 Jul, [facility] [address] [address] Jul, Lumbago with sciatica, left side M54.42 ; Lumbago with sciatica, right side M54.41 ; Left shoulder pain, unspecified chronicity M25.512 and Essential hypertension I10 [place] [id number] [place] [address]49[address] Jun, Lumbago with sciatica, left side M54.42 ; Lumbago with sciatica, right side M54.41 ; Left shoulder pain, unspecified chronicity M25.512 ; Essential hypertension I10 ; Heart murmur previously undiagnosed R01.1 ; Overweight E66.3 ; Anxiety F41.9 and Chronic prescription opiate use Z79.891 [place] [id number] [place] [address] 69460- 0549 Jun, Primary osteoarthritis, unspecified site M19.91 [place] [id number] [place] [address] 95946- 9913 Jun, [place] [id number] [place] [address] 74468- 8036 May, Primary osteoarthritis, unspecified site M19.91 [place] [id number] [place] [address] 02652- 8853 May, Injury of left rotator cuff, subsequent encounter S46.002D [place] [id number] [place] [address] 24379- 1220 May, [place] [id number] [place] [address] 32513- 1002 Apr, [place] [address] [address] Apr, PVD (peripheral vascular disease) I73.9 ; Right leg claudication I73.9 ; Hyperlipidemia, unspecified hyperlipidemia type E78.5 ; Occlusion of femoropopliteal bypass graft, 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 and Essential hypertension I10 [place] [address] [place] [address] Apr, Left shoulder pain, unspecified chronicity M25.512 [facility] [id number] [place] [address] 65842- 8976 Mar, Left shoulder pain, unspecified chronicity M25.512 [facility] [id number] [place] [address] 24165- 1524 Mar, [place] [id number] [place] [address] 37724- 3284 Mar, [facility] [id number] [place] [address] 66251- 9344 Mar, Dupuytren's contracture of hand M72.0 ; Essential hypertension I10 ; Pure hypercholesterolemia E78.00 ; Primary osteoarthritis, unspecified site M19.91 ; PVD (peripheral vascular disease) I73.9 and Moderate single current episode of major depressive disorder F32.1 [facility] [id number] [place] [id number] Feb, Dental examination Z01.20 and Dental caries K02.9 [place] [id number] [place] [address] 58686- 0971 Feb, Primary osteoarthritis, unspecified site M19.91 [facility] [address] [place] [address] 10512- 2297 Feb, [facility] [address] [place] [address] 42848- 8324 Feb, [facility] [id number] [place] [address] 58511- 3202 Nov, [facility] [id number] [place] [address] 22337- 8674 Nov, Dupuytren's contracture of hand M72.0 ; Pure hypercholesterolemia E78.00 ; Essential hypertension I10 ; PVD (peripheral vascular disease) I73.9 ; Primary osteoarthritis, unspecified site M19.91 and Rheumatoid arthritis, involving unspecified site, unspecified rheumatoid factor presence M06.9 [facility] [address] [facility] [id number] [place] [address] Nov, IMMUNIZATIONS No Known Immunizations SOCIAL HISTORY Never Assessed REASON FOR VISIT refill plavix, lipitor, cyclobenzaprine PLAN OF CARE VITAL SIGNS MEDICATIONS Medication Instructions Dosage Frequency Start Date End Date Duration Status Cyclobenzaprine HCl 10 mg Orally Three times a day 1 tablet as needed 8h Active Plavix 75 MG Orally Once a day 1 tablet 24h Active Lipitor 20 mg Orally Once a day 1 tablet 24h 90 days Active RESULTS No Results PROCEDURES No Known procedures INSTRUCTIONS MEDICATIONS ADMINISTERED No Known Medications MEDICAL (GENERAL) HISTORY Type Description Date Medical History dupuytren's contracture-hand bilateral Medical History hypertension Medical History hyperlipidemia Medical History Arthritis Medical History peripheral vascular disease Medical History rheumatoid arthritis Surgical History cervical fusion C3-C7 -[facility] 05/2015 Surgical History dupuytren's contracture-bilateral hands Surgical History Artery bypass in right leg Surgical History Occipital bone surgery right side Surgical History surgery near right eye Surgical History [place] Left shoulder replacement 01/13/2018 Hospitalization History Surgery(s) only Hospitalization History [facility] [place]- Cold Symptoms 03/03/2018
--- OUTSIDE RECORDS SUMMARY | 2018-12-22 13:53 | XMS REPORT ---
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 Name Role Phone SINDY LANDAVERDE Unavailable PROBLEMS Type Condition ICD9-CM Code EVG70-LJ Code Onset Dates Condition Status SNOMED Code Problem Lumbago with sciatica, left side M54.42 Active 939896904 Problem Chronic prescription opiate use Z79.891 Active 335421194 Problem Lumbago with sciatica, right side M54.41 Active 366870189865367 Problem Claustrophobia F40.240 Active 25873313 Problem Essential hypertension I10 Active 78382548 Problem Hypogonadism in male E29.1 Active 33343004 Problem Tear of left rotator cuff, unspecified tear extent M75.102 Active 9476025 Problem Left shoulder pain, unspecified chronicity M25.512 Active 00619246 Problem Hypotestosteronism E34.9 Active 5251246202705 Problem Erectile dysfunction, unspecified erectile dysfunction type N52.9 Active 554935765 Problem Primary osteoarthritis, unspecified site M19.91 Active 874504810 Problem Dupuytren's contracture of hand M72.0 Active 308857445 Problem PVD (peripheral vascular disease) I73.9 Active 119356682 Problem Rheumatoid arthritis, involving unspecified site, unspecified rheumatoid factor presence M06.9 Active 10995109 Problem Right leg claudication I73.9 Active 643204183 Problem Hyperlipidemia, unspecified hyperlipidemia type E78.5 Active 52044685 Problem Pure hypercholesterolemia E78.00 Active 193907401 Problem Primary osteoarthritis, 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 [id number] [id number] Mar, Claustrophobia F40.[address] [facility] [address] [id number][place] [id number] Mar, Hypotestosteronism E34.9 [facility] [address] [facility] [id number] [place] [address] Mar, Encounter for pre-operative laboratory testing Z01.[address] [facility] [address] [id number][place] [id number] Mar, Acute otitis externa of right ear, unspecified type H60.501 ; Hypotestosteronism E34.9 and Encounter for pre-operative laboratory testing Z01.[address] [facility] [address] [id number][place] [id number] Mar, [facility] [address] [id number][place] [id number] Mar, Hypogonadism in male E29.1 and Hypotestosteronism E34.[address] [facility] [address] [id number][place] [id number] Mar, Acute otitis externa of right ear, unspecified type H60.[address] [facility] [address] [id number][place] [id number] Mar, [facility]estosteronism E34.9 [facility] [address] [id number][place] [id number] Feb, [facility] [address] [facility] [id number][place] [id number] Feb, PVD (peripheral vascular disease) I73.9 ; Pure hypercholesterolemia E78.00 and Primary osteoarthritis, unspecified site M19.[address] [facility] [address] [id number][place] [id number] Feb, Hypotestosteronism E34.9 [facility] [address] [id number][place] [id number] Feb, Upper respiratory infection, viral J06.[address] [facility] [address] [id number][place] [id number] Feb, Hypotestosteronism E34.9 [facility] [address] [id number] January, [facility] [address] [id number][place] [id number] January, Hypotestosteronism E34.9 [facility] [address] [facility] [address] [address] [id number][place] [id number] January, Hypotestosteronism E34.9 [facility] [address]65100[place] [id number] Dec, [facility] [address] [facility] [address] [id number], [place] [id number] Dec, Erectile dysfunction, unspecified erectile dysfunction type N52.9 [facility] [address]65[address] [address] Dec, [facility] [address]65[address] [address] Dec, Pre-operative cardiovascular examination Z01.810 ; PVD (peripheral vascular disease) I73.9 ; Anxiety F41.9 ; Rheumatoid arthritis, involving unspecified site, unspecified rheumatoid factor presence M06.9 ; Essential hypertension I10 ; Hyperlipidemia, unspecified hyperlipidemia type E78.5 and Hypotestosteronism E34.[address] [facility] [address] [id number], [place] [id number] Dec, [facility] [address] [id number], [place] [id number] Dec, Erectile dysfunction, unspecified erectile dysfunction type N52.9 and Hypotestosteronism E34.[address] [facility] [address] [id number] [place] [address] Dec, Hypotestosteronism E34.9 [facility] [address] [facility] [id number][place] [id number] Nov, [facility] [address] [facility] [id number] [place] [address] Nov, Hypotestosteronism E34.9 [facility] [address] [facility] [id number][place] [id number] Nov, Pure hypercholesterolemia E78.00 and Primary osteoarthritis, unspecified site M19.91 [facility] [address] [id number], [place] [id number] Nov, [facility] [address] [facility] [id number], [place] [address] Nov, Tear of left glenoid labrum, subsequent encounter S43.432D [facility] [address] [id number], [place] [address] Nov, Hypotestosteronism E34.9 [facility] [address] [id number][place] [id number] Nov, [facility] [address] [id number], [place] [id number] Nov, [facility] [address] [id number], [place] [address] Nov, Erectile dysfunction, unspecified erectile dysfunction type N52.9 [facility] [address] [id number], [place] [id number] Nov, Erectile dysfunction, unspecified erectile dysfunction type N52.9 [facility] [address] [id number] [place] [id number] Nov, 2017 Viral upper respiratory tract infection J06.9 and Erectile dysfunction, unspecified erectile dysfunction type N52.[address] [facility] [address] [id number] [place] [id number] Oct, [facility] [address] [id number][place] [id number] Oct, [facility] [address] [id number], [place] [id number] Oct, Fall on same level due to nature of surface, initial encounter W18.39XA and Erectile dysfunction, unspecified erectile dysfunction type N52.9 [facility] [id number] [place] [address] Sep, [facility] [id number] [place] [address] Sep, Tear of left rotator cuff, unspecified tear extent M75.102 and Primary osteoarthritis, 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 [facility] [id number] [place] [address] Aug, Primary osteoarthritis, unspecified site M19.91 [facility] [id number] [place] [address] Jul, [facility] [id number] [place] [address] 11731[address] 3286 Jul, Primary osteoarthritis, unspecified site M19.91 [facility] [id number] [place] [address]487 Jul, Lumbago with sciatica, right side M54.41 [facility] [id number] [place] [address]90- 3184 Jul, Primary osteoarthritis, 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 and Injury of left rotator cuff, subsequent encounter S46.002D [facility] [id number] [place] [address] 94448- 6072 Jul, [facility] [id number] [place] [address] 39935- 5294 Jul, [facility] [id number] [place] [address]77- 4475 Jul, [facility] [address] [place]80[place] [address] Jul, Lumbago with sciatica, left side M54.42 ; Lumbago with sciatica, right side M54.41 ; Left shoulder pain, unspecified chronicity M25.512 and Essential hypertension I10 [place] [facility] [id number] [place] [address]28- [address] Jun, Lumbago with sciatica, left side M54.42 ; Lumbago with sciatica, right side M54.41 ; Left shoulder pain, unspecified chronicity M25.512 ; Essential hypertension I10 ; Heart murmur previously undiagnosed R01.1 ; Overweight E66.3 ; Anxiety F41.9 and Chronic prescription opiate use Z79.891 [facility] [id number] [place] [address]87- [address]4 Jun, Primary osteoarthritis, unspecified site M19.91 [facility] [id number] [place] [address] 81214- [address] Jun, [facility] [id number] [place] [address] 2728 May, Primary osteoarthritis, unspecified site M19.91 [place] [facility] [id number] [place] [address]50- 9726 May, Injury of left rotator cuff, subsequent encounter S46.002D [facility] [facility] [id number] [place] [address] 30173- 1730 May, [facility] [id number] [place] [address] 62112- 4781 Apr, [facility] [address] [address] Apr, PVD (peripheral vascular disease) I73.9 ; Right leg claudication I73.9 ; Hyperlipidemia, unspecified hyperlipidemia type E78.5 ; Occlusion of femoropopliteal bypass graft, 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 and Essential hypertension I10 [place] [address] [place] [address] Apr, Left shoulder pain, unspecified chronicity M25.512 [facility] [id number] [place] [address] 81190- 9812 Mar, Left shoulder pain, unspecified chronicity M25.512 [facility] [id number] [place] [address] 53047- 1298 Mar, [facility] [id number] [place] [address] 37043- 0908 Mar, [facility] [id number] [place] [address] 65336- 5343 Mar, Dupuytren's contracture of hand M72.0 ; Essential hypertension I10 ; Pure hypercholesterolemia E78.00 ; Primary osteoarthritis, unspecified site M19.91 ; PVD (peripheral vascular disease) I73.9 and Moderate single current episode of major depressive disorder F32.1 [facility] [id number] [place] [id number] Feb, Dental examination Z01.20 and Dental caries K02.9 [place] [id number] [place] [address] 10907- 3580 Feb, Primary osteoarthritis, unspecified site M19.91 [facility] [address] [place] [address] 19987- 2668 Feb, [facility] [address] [place] [address] 34217- 0133 Feb, [facility] [id number] [place] [address] 31859- 5121 Nov, [facility] [id number] [place] [address] 40040- 6727 Nov, Dupuytren's contracture of hand M72.0 ; Pure hypercholesterolemia E78.00 ; Essential hypertension I10 ; PVD (peripheral vascular disease) I73.9 ; Primary osteoarthritis, unspecified site M19.91 and Rheumatoid arthritis, involving unspecified site, unspecified rheumatoid factor presence M06.9 [facility] [address] [facility] [id number] [place] [address] Nov, IMMUNIZATIONS No Known Immunizations SOCIAL HISTORY Never Assessed REASON FOR VISIT Medication Change, Radiology Order PLAN OF CARE VITAL SIGNS MEDICATIONS Medication Instructions Dosage Frequency Start Date End Date Duration Status Testosterone Cypionate 200 MG/ML Intramuscular q2 weeks 1 ml Mar, 180 days Active RESULTS Name Result Date Reference Range MRI : Brain w/ Contrast 2018-04-18 PROCEDURES No Known procedures INSTRUCTIONS MEDICATIONS ADMINISTERED No Known Medications MEDICAL (GENERAL) HISTORY Type Description Date Medical History dupuytren's contracture-hand bilateral Medical History hypertension Medical History hyperlipidemia Medical History Arthritis Medical History peripheral vascular disease Medical History rheumatoid arthritis Surgical History cervical fusion C3-C7 -[facility] 05/2015 Surgical History dupuytren's contracture-bilateral hands Surgical History Artery bypass in right leg Surgical History Occipital bone surgery right side Surgical History surgery near right eye Surgical History [place] Left shoulder replacement 01/13/2018 Hospitalization History Surgery(s) only Hospitalization History [facility] [place]- Cold Symptoms 03/03/2018
--- OUTSIDE RECORDS SUMMARY | 2018-12-22 13:54 | XMS REPORT ---
Author Author SINDY LANDAVERDE Organization [facility] Address [address] [place] [address] Care Team Providers Care Management Trainee Marketing Name Role Phone SINDY LANDAVERDE Unavailable PROBLEMS Type Condition ICD9-CM Code [id number] Code Onset Dates Condition Status SNOMED Code Problem Lumbago with sciatica, left side M54.42 Active 024937055 Problem Chronic prescription opiate use Z79.891 Active 532360172 Problem Lumbago with sciatica, right side M54.41 Active 763721534659008 Problem Claustrophobia F40.240 Active 90764556 Problem Essential hypertension I10 Active 74056414 Problem Hypogonadism in male E29.1 Active 50491065 Problem Tear of left rotator cuff, unspecified tear extent M75.102 Active 0683640 Problem Left shoulder pain, unspecified chronicity M25.512 Active 54468002 Problem Hypotestosteronism E34.9 Active 2424197108427 Problem Erectile dysfunction, unspecified erectile dysfunction type N52.9 Active 169460561 Problem Primary osteoarthritis, unspecified site M19.91 Active 891927092 Problem Dupuytren's contracture of hand M72.0 Active 512657441 Problem PVD (peripheral vascular disease) I73.9 Active 933841770 Problem Rheumatoid arthritis, involving unspecified site, unspecified rheumatoid factor presence M06.9 Active 51152551 Problem Right leg claudication I73.9 Active 941012434 Problem Hyperlipidemia, unspecified hyperlipidemia type E78.5 Active 86767871 Problem Pure hypercholesterolemia E78.00 Active 538860565 Problem Primary osteoarthritis, 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 Active 38244648 Problem Moderate single current episode of major depressive disorder F32.1 Active 90566216 Problem Anxiety F41.9 Active 57203391 ALLERGIES No Information ENCOUNTERS Encounter Location Date Diagnosis [address] [id number] [id number] Apr, [facility] [address] [id number], [place] [id number] Mar, Hypotestosteronism E34.9 [facility] [address] [facility] [id number] [place] [id number] Mar, Claustrophobia F40.[address] [facility] [address] [id number][place] [id number] Mar, Hypotestosteronism E34.9 [facility] [address] [facility] [id number] [place] [address] Mar, Encounter for pre-operative laboratory testing Z01.[address] [facility] [address] [id number][place] [id number] Mar, Acute otitis externa of right ear, unspecified type H60.501 ; Hypotestosteronism E34.9 and Encounter for pre-operative laboratory testing Z01.[address] [facility] [address] [id number][place] [id number] Mar, [facility] [address] [id number][place] [id number] Mar, Hypogonadism in male E29.1 and Hypotestosteronism E34.[address] [facility] [address] [id number][place] [id number] Mar, Acute otitis externa of right ear, unspecified type H60.[address] [facility] [address] [id number][place] [address] Mar, Hypotestosteronism E34.9 [facility] [address] [id number][place] [id number] Feb, [facility] [address] [facility] [id number] [place] [id number] Feb, PVD (peripheral vascular disease) I73.9 ; Pure hypercholesterolemia E78.00 and Primary osteoarthritis, unspecified site M19.[address] [facility] [address] [id number][place] [id number] Feb, Hypotestosteronism E34.9 [facility] [address] [id number][place] [address] Feb, Upper respiratory infection, viral J06.[address] [facility] [address] [id number][place] [id number] Feb, Hypotestosteronism E34.9 [facility] [address] [id number] January, [facility] [address] [id number][place] [address] January, Hypotestosteronism E34.9 [facility] [address] [facility] [address] [id number], [place] [address] January, Hypotestosteronism E34.9 [facility] [address]65100[place] [id number] Dec, [facility] [address] [facility] [address] [id number], [place] [id number] Dec, Erectile dysfunction, unspecified erectile dysfunction type N52.9 [facility] [address]65100[place] [id number] Dec, [facility] [address]65100[place] [address] Dec, Pre-operative cardiovascular examination Z01.810 ; PVD (peripheral vascular disease) I73.9 ; Anxiety F41.9 ; Rheumatoid arthritis, involving unspecified site, unspecified rheumatoid factor presence M06.9 ; Essential hypertension I10 ; Hyperlipidemia, unspecified hyperlipidemia type E78.5 and Hypotestosteronism E34.[address] [facility] [address] [id number], [place] [address] Dec, [facility] [address] [id number], [place] [id number] Dec, Erectile dysfunction, unspecified erectile dysfunction type N52.9 and Hypotestosteronism E34.[address] [facility] [address] [id number] [place] [address] Dec, Hypotestosteronism E34.9 [facility] [address] [facility] [id number] [place] [id number] Nov, [facility] [address] [facility] [id number] [place] [address] Nov, Hypotestosteronism E34.9 [facility] [address] [facility] [id number] [place] [address] Nov, Pure hypercholesterolemia E78.00 and Primary osteoarthritis, unspecified site M19.91 [facility] [address] [id number], [place] [address] Nov, [facility] [address] [facility] [id number] [address] Nov, Tear of left glenoid labrum, subsequent encounter S43.432D [facility] [address] [id number], [place] [address] Nov, Hypotestosteronism E34.9 [facility] [address] [id number][place] [id number] Nov, [facility] [address] [id number], [place] [address] Nov, [facility] [address] [id number], [place] [address] Nov, Erectile dysfunction, unspecified erectile dysfunction type N52.9 [facility] [address] [id number], [place] [address] Nov, Erectile dysfunction, unspecified erectile dysfunction type N52.9 [facility] [address] [id number] [place] [id number] Nov, 2017 Viral upper respiratory tract infection J06.9 and Erectile dysfunction, unspecified erectile dysfunction type N52.[address] [facility] [address] [id number] [place] [id number] Oct, [facility] [address] [id number], [place] [id number] Oct, [facility] [address] [id number], [place] [address] Oct, Fall on same level due to nature of surface, initial encounter W18.39XA and Erectile dysfunction, unspecified erectile dysfunction type N52.9 [facility] [id number] [place] [address] Sep, [facility] [id number] [place] [address]20[address] Sep, Tear of left rotator cuff, unspecified tear extent M75.102 and Primary osteoarthritis, 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 [facility] [id number] [place] [address]31- [address]17 Aug, Primary osteoarthritis, unspecified site M19.91 [facility] [id number] [place] [address]82[address] Jul, [facility] [id number] [place] [address] 87868- 5[address] Jul, Primary osteoarthritis, unspecified site M19.91 [facility] [id number] [place] [address] 06675- 4074 Jul, Lumbago with sciatica, right side M54.41 [facility] [id number] [place] [address]443[address] 4467 Jul, Primary osteoarthritis, 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 and Injury of left rotator cuff, subsequent encounter S46.002D [facility] [id number] [place] [address] 34834- 7206 Jul, [facility] [id number] [place] [address] 16261- 2003 Jul, [facility] [id number] [place] [address] 07075- 1871 Jul, [facility] [address] 80740KS [place] [address] Jul, Lumbago with sciatica, left side M54.42 ; Lumbago with sciatica, right side M54.41 ; Left shoulder pain, unspecified chronicity M25.512 and Essential hypertension I10 [place] [id number] [place] [address] 16366- 0446 Jun, Lumbago with sciatica, left side M54.42 ; Lumbago with sciatica, right side M54.41 ; Left shoulder pain, unspecified chronicity M25.512 ; Essential hypertension I10 ; Heart murmur previously undiagnosed R01.1 ; Overweight E66.3 ; Anxiety F41.9 and Chronic prescription opiate use Z79.891 [place] [id number] [place] [address] 09749- 9508 Jun, Primary osteoarthritis, unspecified site M19.91 [place] [id number] [place] [address] 81347- 5917 Jun, [place] [id number] [place] [address] 82550- 0779 May, Primary osteoarthritis, unspecified site M19.91 [place] [id number] [place] [address] 53491- 9051 May, Injury of left rotator cuff, subsequent encounter S46.002D [place] [id number] [place] [address] 66200- 6757 May, [place] [id number] [place] [address] 48604- 4565 Apr, [place] [address] [address] Apr, PVD (peripheral vascular disease) I73.9 ; Right leg claudication I73.9 ; Hyperlipidemia, unspecified hyperlipidemia type E78.5 ; Occlusion of femoropopliteal bypass graft, 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 and Essential hypertension I10 [place] [address] [place] [address] Apr, Left shoulder pain, unspecified chronicity M25.512 [facility] [id number] [place] [address] 85739- 3140 Mar, Left shoulder pain, unspecified chronicity M25.512 [facility] [id number] [place] [address] 05666- 2918 Mar, [place] [id number] [place] [address] 30301- 6952 Mar, [facility] [id number] [place] [address] 57635- 6316 Mar, Dupuytren's contracture of hand M72.0 ; Essential hypertension I10 ; Pure hypercholesterolemia E78.00 ; Primary osteoarthritis, unspecified site M19.91 ; PVD (peripheral vascular disease) I73.9 and Moderate single current episode of major depressive disorder F32.1 [facility] [id number] [place] [id number] Feb, Dental examination Z01.20 and Dental caries K02.9 [place] [id number] [place] [address] 16381- 1121 Feb, Primary osteoarthritis, unspecified site M19.91 [facility] [address] [place] [address] 20121- 4655 Feb, [facility] [address] [place] [address] 09184- 3025 Feb, [facility] [id number] [place] [address] 97238- 9686 Nov, [facility] [id number] [place] [address] 62144- 5362 Nov, Dupuytren's contracture of hand M72.0 ; Pure hypercholesterolemia E78.00 ; Essential hypertension I10 ; PVD (peripheral vascular disease) I73.9 ; Primary osteoarthritis, unspecified site M19.91 and Rheumatoid arthritis, involving unspecified site, unspecified rheumatoid factor presence M06.9 [facility] [address] [facility] [id number] [place] [address] Nov, IMMUNIZATIONS Vaccine Route Administration Date Status TESTOSTERONE (PT'S OWN) Unknown February 20, 2018 Administered SOCIAL HISTORY Never Assessed REASON FOR VISIT Injection-essie RN PLAN OF CARE VITAL SIGNS MEDICATIONS Unknown Medications RESULTS No Results PROCEDURES Procedure Date Ordered Result Body Site TESTOSTERONE (PT'S OWN) February 20, 2018 THER/PROPH/DIAG INJ, SC/IM February 20, 2018 INSTRUCTIONS MEDICATIONS ADMINISTERED No Known Medications MEDICAL (GENERAL) HISTORY Type Description Date Medical History dupuytren's contracture-hand bilateral Medical History hypertension Medical History hyperlipidemia Medical History Arthritis Medical History peripheral vascular disease Medical History rheumatoid arthritis Surgical History cervical fusion C3-C7 -[facility] 05/2015 Surgical History dupuytren's contracture-bilateral hands Surgical History Artery bypass in right leg Surgical History Occipital bone surgery right side Surgical History surgery near right eye Surgical History [place] Left shoulder replacement 01/13/2018 Hospitalization History Surgery(s) only Hospitalization History [facility] [place]- Cold Symptoms 03/03/2018
--- OUTSIDE RECORDS SUMMARY | 2018-12-22 13:54 | XMS REPORT ---
Author Author SINDY LANDAVERDE Organization [facility] Address [address] [place] [address] Care Team Providers Care Needle Leader Name Role Phone SINDY LANDAVERDE Unavailable PROBLEMS Type Condition ICD9-CM Code ZKO90-TB Code Onset Dates Condition Status SNOMED Code Problem Lumbago with sciatica, left side M54.42 Active 605285134 Problem Chronic prescription opiate use Z79.891 Active 146249269 Problem Lumbago with sciatica, right side M54.41 Active 988089242262949 Problem Claustrophobia F40.240 Active 63465448 Problem Essential hypertension I10 Active 66977105 Problem Hypogonadism in male E29.1 Active 06149832 Problem Tear of left rotator cuff, unspecified tear extent M75.102 Active 5098288 Problem Left shoulder pain, unspecified chronicity M25.512 Active 69585877 Problem Hypotestosteronism E34.9 Active 4898667114495 Problem Erectile dysfunction, unspecified erectile dysfunction type N52.9 Active 642828865 Problem Primary osteoarthritis, unspecified site M19.91 Active 550813228 Problem Dupuytren's contracture of hand M72.0 Active 166200641 Problem PVD (peripheral vascular disease) I73.9 Active 955833527 Problem Rheumatoid arthritis, involving unspecified site, unspecified rheumatoid factor presence M06.9 Active 97670056 Problem Right leg claudication I73.9 Active 398511917 Problem Hyperlipidemia, unspecified hyperlipidemia type E78.5 Active 12546857 Problem Pure hypercholesterolemia E78.00 Active 564612971 Problem Primary osteoarthritis, 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 Active 75427818 Problem Moderate single current episode of major depressive disorder F32.1 Active 60421947 Problem Anxiety F41.9 Active 63645208 ALLERGIES No Information ENCOUNTERS Encounter Location Date Diagnosis [address] [id number] [id number] Apr, [facility] [address] [id number] [place] [id number] Mar, Hypotestosteronism E34.9 [facility] [place] [address] [facility] [id number][place] [id number] Mar, Claustrophobia F40.[address] [facility] [address] [id number] [place] [id number] Mar, Hypotestosteronism E34.9 [facility] [address] [facility] [id number] [place] [address] Mar, Encounter for pre-operative laboratory testing Z01.[address] [facility] [address] [id number] [place] [address] Mar, Acute otitis externa of right ear, unspecified type H60.501 ; Hypotestosteronism E34.9 and Encounter for pre-operative laboratory testing Z01.[address] [facility] [address] [id number] [place] [id number] Mar, [facility] [address] [id number] [place]LEY[place] [id number] Mar, Hypogonadism in male E29.1 and Hypotestosteronism E34.[address] [facility] [address] [id number] [place] [id number] Mar, Acute otitis externa of right ear, unspecified type H60.[address] [facility] [address] [id number] [place] [id number] Mar, Hypotestosteronism E34.9 [facility] [address] [id number] [place] [id number] Feb, [facility] [address] [facility] [id number][place] [id number] Feb, PVD (peripheral vascular disease) I73.9 ; Pure hypercholesterolemia E78.00 and Primary osteoarthritis, unspecified site M19.[address] [facility] [address] [id number] [place] [id number] Feb, Hypotestosteronism E34.9 [facility] [address] [id number] [place] [id number] Feb, Upper respiratory infection, viral J06.[address] [facility] [address] [id number] [place] [id number] Feb, Hypotestosteronism E34.9 [facility] [address] [id number] January, [facility] [address] [id number] [place] [address] January, Hypotestosteronism E34.9 [facility] [address] [address] [facility] [address] [id number] [place] [id number] January, Hypotestosteronism E34.9 [facility] [address]65[address] [id number] Dec, [facility] [address] [address] [facility] [address] [id number] [place] [id number] Dec, Erectile dysfunction, unspecified erectile dysfunction type N52.9 [facility] [address]65[address] [id number] Dec, [facility] [address] [address] Dec, Pre-operative cardiovascular examination Z01.810 ; PVD (peripheral vascular disease) I73.9 ; Anxiety F41.9 ; Rheumatoid arthritis, involving unspecified site, unspecified rheumatoid factor presence M06.9 ; Essential hypertension I10 ; Hyperlipidemia, unspecified hyperlipidemia type E78.5 and Hypotestosteronism E34.[address] [facility] [address] [id number] [place]LEY[place] [id number] Dec, [facility] [address] [id number] [place] [id number] Dec, Erectile dysfunction, unspecified erectile dysfunction type N52.9 and Hypotestosteronism E34.[address] [facility] [address] [id number] [place] [id number] Dec, Hypotestosteronism E34.9 [facility] [place] [address] [facility] [id number], [place] [id number] Nov, [facility] [address] [facility] [id number] [place] [address] Nov, Hypotestosteronism E34.9 [facility] [place] [address] [facility] [id number][place] [id number] Nov, Pure hypercholesterolemia E78.00 and Primary osteoarthritis, unspecified site M19.91 [facility] [address] [id number] [place] [id number] Nov, [facility] [address] [facility] [id number], [place] [address] Nov, Tear of left glenoid labrum, subsequent encounter S43.432D [facility] [address] [id number] [place]LEY[place] [id number] Nov, Hypotestosteronism E34.9 [facility] [address] [id number] [place] [id number] Nov, [facility] [address] [id number] [place] [address] Nov, [facility] [address] [id number] [place] [id number] Nov, Erectile dysfunction, unspecified erectile dysfunction type N52.9 [facility] [address] [id number] [place] [id number] Nov, Erectile dysfunction, unspecified erectile dysfunction type N52.9 [facility] [address] [id number] [place] [id number] Nov, 2017 Viral upper respiratory tract infection J06.9 and Erectile dysfunction, unspecified erectile dysfunction type N52.[address] [facility] [address] [id number] [place] [id number] Oct, [facility] [address] [id number] [place] [id number] Oct, [facility] [address] [facility] [id number] [place] [id number] Oct, Fall on same level due to nature of surface, initial encounter W18.39XA and Erectile dysfunction, unspecified erectile dysfunction type N52.9 [facility] [id number] [place] [address] Sep, [facility] [id number] [place] [address] Sep, Tear of left rotator cuff, unspecified tear extent M75.102 and Primary osteoarthritis, 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 [facility] [id number] [place] [address] Aug, Primary osteoarthritis, unspecified site M19.91 [facility] [id number] [place] [address] Jul, [facility] [id number] [place] [address] Jul, Primary osteoarthritis, unspecified site M19.91 [facility] [id number] [place] [address]- [address] Jul, Lumbago with sciatica, right side M54.41 [facility] [id number] [place] [address] Jul, Primary osteoarthritis, 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 and Injury of left rotator cuff, subsequent encounter S46.002D [facility] [id number] [place] [address]694[address] Jul, [facility] [id number] [place] [address] Jul, [facility] [id number] [place] [address] Jul, [facility] [address]24[address] [place] [address] Jul, Lumbago with sciatica, left side M54.42 ; Lumbago with sciatica, right side M54.41 ; Left shoulder pain, unspecified chronicity M25.512 and Essential hypertension I10 [place] [facility] [id number] [place] [address] Jun, Lumbago with sciatica, left side M54.42 ; Lumbago with sciatica, right side M54.41 ; Left shoulder pain, unspecified chronicity M25.512 ; Essential hypertension I10 ; Heart murmur previously undiagnosed R01.1 ; Overweight E66.3 ; Anxiety F41.9 and Chronic prescription opiate use Z79.891 [facility] [id number] [place] [address] Jun, Primary osteoarthritis, unspecified site M19.91 [facility] [facility] [id number] [place] [address] Jun, [place] [id number] [place] [address]- [address] May, Primary osteoarthritis, unspecified site M19.91 [facility] [id number] [place] [address]275[address] May, Injury of left rotator cuff, subsequent encounter S46.002D [facility] [id number] [place] [address] 6[address] May, [place] [id number] [place] [address]88- 5849 Apr, [place] [address] [address] Apr, PVD (peripheral vascular disease) I73.9 ; Right leg claudication I73.9 ; Hyperlipidemia, unspecified hyperlipidemia type E78.5 ; Occlusion of femoropopliteal bypass graft, 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 and Essential hypertension I10 [place] [address] [place] [address] Apr, Left shoulder pain, unspecified chronicity M25.512 [facility] [id number] [place] [address] 97790- [address]245 Mar, Left shoulder pain, unspecified chronicity M25.512 [facility] [id number] [place] [address] 27959- 1030 Mar, [facility] [id number] [place] [address] 04452- 0616 Mar, [facility] [id number] [place] [address]80- 73[address] Mar, Dupuytren's contracture of hand M72.0 ; Essential hypertension I10 ; Pure hypercholesterolemia E78.00 ; Primary osteoarthritis, unspecified site M19.91 ; PVD (peripheral vascular disease) I73.9 and Moderate single current episode of major depressive disorder F32.1 [facility] [id number] [place] [id number] Feb, Dental examination Z01.20 and Dental caries K02.9 [place] [id number] [place] [address] 14629- 5666 Feb, Primary osteoarthritis, unspecified site M19.91 [facility] [address] [place] [address] 61587- 2587 Feb, [facility] [address] [place] [address]17- 5031 Feb, [facility] [id number] [place] [address] 12208- 5494 Nov, [facility] [id number] [place] [address] 30161- 9367 Nov, Dupuytren's contracture of hand M72.0 ; Pure hypercholesterolemia E78.00 ; Essential hypertension I10 ; PVD (peripheral vascular disease) I73.9 ; Primary osteoarthritis, unspecified site M19.91 and Rheumatoid arthritis, involving unspecified site, unspecified rheumatoid factor presence M06.9 [facility] [address] [facility] [id number] [place] [address] Nov, IMMUNIZATIONS Vaccine Route Administration Date Status TESTOSTERONE (PT'S OWN) IM Intramuscular March 06, 2018 Administered SOCIAL HISTORY Never Assessed REASON FOR VISIT Testosterone injection bferrisma PLAN OF CARE VITAL SIGNS MEDICATIONS Unknown Medications RESULTS No Results PROCEDURES Procedure Date Ordered Result Body Site TESTOSTERONE (PT'S OWN) March 06, 2018 THER/PROPH/DIAG INJ, SC/IM March 06, 2018 INSTRUCTIONS MEDICATIONS ADMINISTERED No Known Medications MEDICAL (GENERAL) HISTORY Type Description Date Medical History dupuytren's contracture-hand bilateral Medical History hypertension Medical History hyperlipidemia Medical History Arthritis Medical History peripheral vascular disease Medical History rheumatoid arthritis Surgical History cervical fusion C3-C7 [facility] 05/2015 Surgical History dupuytren's contracture-bilateral hands Surgical History Artery bypass in right leg Surgical History Occipital bone surgery right side Surgical History surgery near right eye Surgical History [place] Left shoulder replacement 01/13/2018 Hospitalization History Surgery(s) only Hospitalization History [facility]- Cold Symptoms 03/03/2018
--- OUTSIDE RECORDS SUMMARY | 2018-12-22 13:54 | XMS REPORT ---
Author Author [facility] Address [address] [place] [address] Care Team Providers Care Motor Vehicle Compliance Analyst Name Role Phone MARLIN GALVAN Unavailable PROBLEMS Type Condition ICD9-CM Code WEQ20-EF Code Onset Dates Condition Status SNOMED Code Problem Lumbago with sciatica, left side M54.42 Active 596200695 Problem Chronic prescription opiate use Z79.891 Active 325466325 Problem Lumbago with sciatica, right side M54.41 Active 826280218292928 Problem Claustrophobia F40.240 Active 29941835 Problem Essential hypertension I10 Active 42695661 Problem Hypogonadism in male E29.1 Active 05060888 Problem Tear of left rotator cuff, unspecified tear extent M75.102 Active 7474955 Problem Left shoulder pain, unspecified chronicity M25.512 Active 83875668 Problem Hypotestosteronism E34.9 Active 4737185086304 Problem Erectile dysfunction, unspecified erectile dysfunction type N52.9 Active 415310063 Problem Primary osteoarthritis, unspecified site M19.91 Active 278917210 Problem Dupuytren's contracture of hand M72.0 Active 862739474 Problem PVD (peripheral vascular disease) I73.9 Active 424063525 Problem Rheumatoid arthritis, involving unspecified site, unspecified rheumatoid factor presence M06.9 Active 40581485 Problem Right leg claudication I73.9 Active 748896370 Problem Hyperlipidemia, unspecified hyperlipidemia type E78.5 Active 63443517 Problem Pure hypercholesterolemia E78.00 Active 783872618 Problem Primary osteoarthritis, 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 Active 11309431 Problem Moderate single current episode of major depressive disorder F32.1 Active 14772685 Problem Anxiety F41.9 Active 89601484 ALLERGIES Substance Reaction Event Type Date Status Niacin Unknown Drug Allergy Feb, Active ENCOUNTERS Encounter Location Date Diagnosis [facility] [address] [id number] [id number] Apr, [facility] [address] [id number] [id number] Mar, Hypotestosteronism E34.9 [facility] [address] [facility] [id number][place] [address] Mar, Claustrophobia F40.[address] [facility] [address] [id number] [id number] Mar, Hypotestosteronism E34.9 [facility] [address] [id number] [place] [id number] Mar, Encounter for pre-operative laboratory testing Z01.[address] [facility] [address] [id number][place] [address] Mar, Acute otitis externa of right ear, unspecified type H60.501 ; Hypotestosteronism E34.9 and Encounter for pre-operative laboratory testing Z01.[address] [facility] [address] [id number][place] [id number] Mar, [facility] [address] [id number][place] [id number] Mar, Hypogonadism in male E29.1 and Hypotestosteronism E34.[address] [facility] [address] [id number][place] [id number] Mar, Acute otitis externa of right ear, unspecified type H60.[address] [facility] [address] [id number][place] [id number] Mar, Hypotestosteronism E34.9 [facility] [address] [id number][place] [id number] Feb, [facility] [address] [facility] [id number][place] [id number] Feb, PVD (peripheral vascular disease) I73.9 ; Pure hypercholesterolemia E78.00 and Primary osteoarthritis, unspecified site M19.[address] [facility] [address] [id number] [place] [id number] Feb, Hypotestosteronism E34.[address] [facility] [address] [id number] [place] [id number] Feb, Upper respiratory infection, viral J06.[address] [facility] [address] [id number] [place] [id number] Feb, Hypotestosteronism E34.[address] [facility] [address] [id number][place] [id number] January, [facility] [address] [id number][place] [id number] January, Hypotestosteronism E34.9 [facility] [address] [id number][place] [id number] January, Hypotestosteronism E34.9 [facility] [address]00565[place] [id number] Dec, [facility] [address] [id number][place] [id number] Dec, Erectile dysfunction, unspecified erectile dysfunction type N52.9 [facility] [address]65100[place] [id number] Dec, [facility] [address]65[address] [id number] Dec, Pre-operative cardiovascular examination Z01.810 ; PVD (peripheral vascular disease) I73.9 ; Anxiety F41.9 ; Rheumatoid arthritis, involving unspecified site, unspecified rheumatoid factor presence M06.9 ; Essential hypertension I10 ; Hyperlipidemia, unspecified hyperlipidemia type E78.5 and Hypotestosteronism E34.[address] [facility] [address] [id number] [place] [id number] Dec, [facility] [address] [id number] [place] [id number] Dec, Erectile dysfunction, unspecified erectile dysfunction type N52.9 and Hypotestosteronism E34.[address] [facility] [address] [id number] [place] [id number] Dec, Hypotestosteronism E34.9 [facility] [address] [facility] [id number][place] [id number] Nov, [facility] [address] [facility] [id number][place] [address] Nov, Hypotestosteronism E34.9 [facility] [address] [facility] [id number][place] [id number] Nov, Pure hypercholesterolemia E78.00 and Primary osteoarthritis, unspecified site M19.[address] [facility] [address] [id number][place] [id number] Nov, [facility] [address] [facility] [id number], [place] [address] Nov, Tear of left glenoid labrum, subsequent encounter S43.432D [facility] [address] [id number][place] [address] Nov, Hypotestosteronism E34.9 [facility] [address] [id number][place] [id number] Nov, [facility] [address] [id number][place] [id number] Nov, [facility] [address] [id number], [place] [id number] Nov, Erectile dysfunction, unspecified erectile dysfunction type N52.9 [facility] [address] [id number], [place] [id number] Nov, Erectile dysfunction, unspecified erectile dysfunction type N52.9 [facility] [address] [id number], [place] [address] 05 Nov, 2017 Viral upper respiratory tract infection J06.9 and Erectile dysfunction, unspecified erectile dysfunction type N52.9 [facility] [address] [id number], [place] [id number] Oct, [facility] [address] [id number], [place] [id number] Oct, [facility] [address] [id number], [place] [address] Oct, Fall on same level due to nature of surface, initial encounter W18.39XA and Erectile dysfunction, unspecified erectile dysfunction type N52.9 [facility] [address] [address] Sep, [facility] [id number] [place] [address] Sep, Tear of left rotator cuff, unspecified tear extent M75.102 and Primary osteoarthritis, 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 [facility] [id number] [place] [address] Aug, Primary osteoarthritis, unspecified site M19.91 [facility] [id number] [place] [address]64- [address]0 Jul, [facility] [id number] [place] [address]- [address] Jul, Primary osteoarthritis, unspecified site M19.91 [facility] [id number] [place] [address]- [address]44 Jul, Lumbago with sciatica, right side M54.41 [facility] [id number] [place] [address]114- 2897 Jul, Primary osteoarthritis, 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 and Injury of left rotator cuff, subsequent encounter S46.002D [facility] [address] [address] Jul, [facility] [address] [address] Jul, [facility] [id number] [place] [address]- [address] Jul, [facility] [address] [id number], [place] [address] Jul, Lumbago with sciatica, left side M54.42 ; Lumbago with sciatica, right side M54.41 ; Left shoulder pain, unspecified chronicity M25.512 and Essential hypertension I10 [facility] [id number] [place] [address]- [address]30 Jun, Lumbago with sciatica, left side M54.42 ; Lumbago with sciatica, right side M54.41 ; Left shoulder pain, unspecified chronicity M25.512 ; Essential hypertension I10 ; Heart murmur previously undiagnosed R01.1 ; Overweight E66.3 ; Anxiety F41.9 and Chronic prescription opiate use Z79.891 [facility] [id number] [place] [address]51- [address] Jun, Primary osteoarthritis, unspecified site M19.91 [facility] [id number] [place] [address]- [address]67 Jun, [facility] [id number] [place] [address]99- 5580 May, Primary osteoarthritis, unspecified site M19.91 [facility] [id number] [place] [address]938- 9526 May, Injury of left rotator cuff, subsequent encounter S46.002D [facility] [id number] [place] [address] 66123- 7779 May, [facility] [id number] [place] [address]24- 3115 Apr, [place] [facility] [address] [address] Apr, PVD (peripheral vascular disease) I73.9 ; Right leg claudication I73.9 ; Hyperlipidemia, unspecified hyperlipidemia type E78.5 ; Occlusion of femoropopliteal bypass graft, 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 and Essential hypertension I10 [facility] [address]65[address], [place] [address] Apr, Left shoulder pain, unspecified chronicity M25.512 [facility] [id number] [place] [address] 93582- 4248 Mar, Left shoulder pain, unspecified chronicity M25.512 [facility] [id number] [place] [address] 16229- 8285 Mar, [facility] [id number] [place] [address] 17498- 6852 Mar, [place] [address] [place] [address] 17535- 8408 Mar, Dupuytren's contracture of hand M72.0 ; Essential hypertension I10 ; Pure hypercholesterolemia E78.00 ; Primary osteoarthritis, unspecified site M19.91 ; PVD (peripheral vascular disease) I73.9 and Moderate single current episode of major depressive disorder F32.1 [facility] [address] [id number] Feb, Dental examination Z01.20 and Dental caries K02.9 [facility] [id number] [place] [address]61- 2396 Feb, Primary osteoarthritis, unspecified site M19.91 [facility] [address]65[address], [place] [address] Feb, [facility] [address] [place] [address] 68976- 1544 Feb, [facility] [id number] [place] [address] 20560- 0463 Nov, [facility] [id number] [place] [address] 75164- 9251 Nov, Dupuytren's contracture of hand M72.0 ; Pure hypercholesterolemia E78.00 ; Essential hypertension I10 ; PVD (peripheral vascular disease) I73.9 ; Primary osteoarthritis, unspecified site M19.91 and Rheumatoid arthritis, involving unspecified site, unspecified rheumatoid factor presence M06.9 [facility] [address] [facility] [id number] [place] [address] Nov, IMMUNIZATIONS No Known Immunizations SOCIAL HISTORY Never Assessed REASON FOR VISIT Cough started over the weekend. No known fever. [email or web address] PLAN OF CARE Activity Details Follow Up prn Reason: VITAL SIGNS Height 69 in 2018-03-01 Weight 252.1 lbs 2018-03-01 Temperature 97.5 degrees Fahrenheit 2018-03-01 Heart Rate 96 bpm 2018-03-01 Respiratory Rate 18 2018-03-01 Oximetry 97 % 2018-03-01 BMI 37.22 kg/m2 2018-03-01 Blood pressure systolic 157 mmHg 2018-03-01 Blood pressure diastolic 96 mmHg 2018-03-01 MEDICATIONS Medication Instructions Dosage Frequency Start Date End Date Duration Status Aspirin Adult Low Dose 81 MG Orally Once a day 1 tablet 24h Active Duloxetine HCl 60 mg Orally Once a day 1 capsule 24h Feb, 90 days Active Plavix 75 MG Orally Once a day 1 tablet 24h Active Lopid 600 MG Orally Twice a day 1 tablet 12h Nov, 30 day(s) Active Cetirizine HCl 10 mg Orally Once a day 1 tablet 24h Nov, Active Tramadol HCl 50 MG Orally TID PRN TAKE ONE TABLET BY MOUTH THREE TIMES DAILY NEEDED 28 Active Lipitor 20 mg Orally Once a day 1 tablet 24h 90 days Active Cane - Active Tessalon Perles 100 mg Orally Three times a day 1 capsule as needed for cough 8h 13 Feb, 2018 Active Diazepam 10 mg Orally once, 30-60 min before procedure 1 tablet as needed Nov, 1 dose Active Hydrocodone-Acetaminophen 5-325 MG Orally 3 times a day 1 tablet as needed 8h Nov, 28 Active Testosterone Cypionate 200 MG/ML Intramuscular every two weeks 0.5 ml January, 0 days Active Lisinopril-Hydrochlorothiazide 10-12.5 MG Orally Once a day 1 tablet 24h 90 days Active Cyclobenzaprine HCl 10 mg Orally Three times a day 1 tablet as needed 8h Active RESULTS Name Result Date Reference Range STREP A (IN HOUSE) 2018-03-01 STREP A NEGATIVE Control POSITIVE Lot # [id number] Exp date 08/18/19 PROCEDURES Procedure Date Ordered Result Body Site [facility] VISIT ESTABLISHED PATIENT March 01, 2018 STREP A ASSAY W/OPTIC March 01, 2018 INSTRUCTIONS MEDICATIONS ADMINISTERED No Known Medications MEDICAL (GENERAL) HISTORY Type Description Date Medical History dupuytren's contracture-hand bilateral Medical History hypertension Medical History hyperlipidemia Medical History Arthritis Medical History peripheral vascular disease Medical History rheumatoid arthritis Surgical History cervical fusion C3-C7 -[facility] 05/2015 Surgical History dupuytren's contracture-bilateral hands Surgical History Artery bypass in right leg Surgical History Occipital bone surgery right side Surgical History surgery near right eye Surgical History [place] Left shoulder replacement 01/13/2018 Hospitalization History Surgery(s) only Hospitalization History [facility] [place]- Cold Symptoms 03/03/2018
--- OUTSIDE RECORDS SUMMARY | 2018-12-22 13:55 | XMS REPORT ---
Author Author SINDY LANDAVERDE Organization [facility] Address [address] [place] [address] Care Team Providers Care Tank Insulator Rubber Name Role Phone SINDY LANDAVERDE Unavailable PROBLEMS Type Condition ICD9-CM Code BPP03-BJ Code Onset Dates Condition Status SNOMED Code Problem Lumbago with sciatica, left side M54.42 Active 492948729 Problem Chronic prescription opiate use Z79.891 Active 351473895 Problem Lumbago with sciatica, right side M54.41 Active 489283508610953 Problem Claustrophobia F40.240 Active 57741025 Problem Essential hypertension I10 Active 52893301 Problem Hypogonadism in male E29.1 Active 42540039 Problem Tear of left rotator cuff, unspecified tear extent M75.102 Active 7659236 Problem Left shoulder pain, unspecified chronicity M25.512 Active 96439455 Problem Hypotestosteronism E34.9 Active 6048466858596 Problem Erectile dysfunction, unspecified erectile dysfunction type N52.9 Active 832826811 Problem Primary osteoarthritis, unspecified site M19.91 Active 578545158 Problem Dupuytren's contracture of hand M72.0 Active 426178519 Problem PVD (peripheral vascular disease) I73.9 Active 505578231 Problem Rheumatoid arthritis, involving unspecified site, unspecified rheumatoid factor presence M06.9 Active 81966076 Problem Right leg claudication I73.9 Active 599599584 Problem Hyperlipidemia, unspecified hyperlipidemia type E78.5 Active 18993646 Problem Pure hypercholesterolemia E78.00 Active 135541370 Problem Primary osteoarthritis, 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 Active 71564450 Problem Moderate single current episode of major depressive disorder F32.1 Active 01219368 Problem Anxiety F41.9 Active 68107589 ALLERGIES No Information ENCOUNTERS Encounter Location Date Diagnosis [address] [id number][place] [id number] Apr, [facility] [address] [id number], [place] [id number] Mar, Hypotestosteronism E34.9 [facility] [place] [address] [facility] [id number][place] [id number] Mar, Claustrophobia F40.[address] [facility] [address] [id number][place] [id number] Mar, Hypotestosteronism E34.9 [facility] [address] [facility] [id number] [place] [address] Mar, Encounter for pre-operative laboratory testing Z01.[address] [facility] [address] [id number][place] [id number] Mar, Acute otitis externa of right ear, unspecified type H60.501 ; Hypotestosteronism E34.9 and Encounter for pre-operative laboratory testing Z01.[address] [facility] [address] [id number][place] [id number] Mar, [facility] [address] [id number], [place] [id number] Mar, Hypogonadism in male E29.1 and Hypotestosteronism E34.[address] [facility] [address] [id number], [place] [id number] Mar, Acute otitis externa of right ear, unspecified type H60.[address] [facility] [address] [id number][place] [id number] Mar, [facility]estosteronism E34.9 [facility] [address] [id number], [place] [id number] Feb, [facility] [place] [address] [facility] [id number][place] [id number] Feb, PVD (peripheral vascular disease) I73.9 ; Pure hypercholesterolemia E78.00 and Primary osteoarthritis, unspecified site M19.[address] [facility] [address] [id number][place] [id number] Feb, Hypotestosteronism E34.9 [facility] [address] [id number], [place] [id number] Feb, Upper respiratory infection, viral J06.[address] [facility] [address] [id number], [place] [id number] Feb, Hypotestosteronism E34.9 [facility] [address]65100[place] [id number] January, [facility] [address] [id number], [place] [id number] January, Hypotestosteronism E34.9 [facility] [address] [facility] [address] [id number], [place] [id number] January, Hypotestosteronism E34.9 [facility] [address]65100[place] [id number] Dec, [facility] [address] [facility] [address] [id number], [place] [id number] Dec, Erectile dysfunction, unspecified erectile dysfunction type N52.9 [facility] [address]65100[place] [id number] Dec, [facility] [address]65100[place] [address] Dec, Pre-operative cardiovascular examination Z01.810 ; PVD (peripheral vascular disease) I73.9 ; Anxiety F41.9 ; Rheumatoid arthritis, involving unspecified site, unspecified rheumatoid factor presence M06.9 ; Essential hypertension I10 ; Hyperlipidemia, unspecified hyperlipidemia type E78.5 and Hypotestosteronism E34.[address] [facility] [address] [id number], [place] [id number] Dec, [facility] [address] [id number], [place] [id number] Dec, Erectile dysfunction, unspecified erectile dysfunction type N52.9 and Hypotestosteronism E34.[address] [facility] [address] [id number] [place] [id number] Dec, Hypotestosteronism E34.9 [facility] [place] [address] [facility] [id number], [place] [id number] Nov, [facility] [address] [facility] [id number] [place] [address] Nov, Hypotestosteronism E34.9 [facility] [place] [address] [facility] [id number], [place] [id number] Nov, Pure hypercholesterolemia E78.00 and Primary osteoarthritis, unspecified site M19.91 [facility] [address] [id number], [place] [id number] Nov, [facility] [address] [facility] [id number][place] [address] Nov, Tear of left glenoid labrum, subsequent encounter S43.432D [facility] [address] [id number], [place] [id number] Nov, Hypotestosteronism E34.9 [facility] [address] [id number], [place] [id number] Nov, [facility] [address] [id number], [place] [id number] Nov, [facility] [address] [id number], [place] [address] Nov, Erectile dysfunction, unspecified erectile dysfunction type N52.9 [facility] [address] [id number], [place] [id number] Nov, Erectile dysfunction, unspecified erectile dysfunction type N52.9 [facility] [address] [id number] [place] [id number] Nov, 2017 Viral upper respiratory tract infection J06.9 and Erectile dysfunction, unspecified erectile dysfunction type N52.[address] [facility] [address] [id number] [place] [id number] Oct, [facility] [address] [id number], [place] [id number] Oct, [facility] [address] [id number], [place] [id number] Oct, Fall on same level due to nature of surface, initial encounter W18.39XA and Erectile dysfunction, unspecified erectile dysfunction type N52.9 [facility] [id number] [place] [address] Sep, [facility] [id number] [place] [address] Sep, Tear of left rotator cuff, unspecified tear extent M75.102 and Primary osteoarthritis, 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 [facility] [id number] [place] [address] Aug, Primary osteoarthritis, unspecified site M19.91 [facility] [id number] [place] [address] Jul, [facility] [id number] [place] [address]10[address] Jul, Primary osteoarthritis, unspecified site M19.91 [facility] [id number] [place] [address] Jul, Lumbago with sciatica, right side M54.41 [facility] [id number] [place] [address] 36900- 7487 Jul, Primary osteoarthritis, 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 and Injury of left rotator cuff, subsequent encounter S46.002D [facility] [id number] [place] [address]- [address] Jul, [facility] [id number] [place] [address]- 1067 Jul, [facility] [id number] [place] [address] Jul, [facility] [id number] [address] Jul, Lumbago with sciatica, left side M54.42 ; Lumbago with sciatica, right side M54.41 ; Left shoulder pain, unspecified chronicity M25.512 and Essential hypertension I10 [place] [id number] [place] [address] 92971- [address] Jun, Lumbago with sciatica, left side M54.42 ; Lumbago with sciatica, right side M54.41 ; Left shoulder pain, unspecified chronicity M25.512 ; Essential hypertension I10 ; Heart murmur previously undiagnosed R01.1 ; Overweight E66.3 ; Anxiety F41.9 and Chronic prescription opiate use Z79.891 [place] [id number] [place] [address] 64972- 8797 Jun, Primary osteoarthritis, unspecified site M19.91 [place] [id number] [place] [address] 40471- 3550 Jun, [place] [id number] [place] [address] 57194- 6242 May, Primary osteoarthritis, unspecified site M19.91 [place] [id number] [place] [address] 33197- 7930 May, Injury of left rotator cuff, subsequent encounter S46.002D [place] [id number] [place] [address] 34263- 9479 May, [place] [id number] [place] [address] 85547- 1294 Apr, [place] [address] [address] Apr, PVD (peripheral vascular disease) I73.9 ; Right leg claudication I73.9 ; Hyperlipidemia, unspecified hyperlipidemia type E78.5 ; Occlusion of femoropopliteal bypass graft, 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 [id number] [place] [address] 35862- 9558 Mar, Left shoulder pain, unspecified chronicity M25.512 [facility] [id number] [place] [address] 33949- 0045 Mar, [place] [id number] [place] [address] 96106- 5856 Mar, [facility] [id number] [place] [address] 01989- 6035 Mar, Dupuytren's contracture of hand M72.0 ; Essential hypertension I10 ; Pure hypercholesterolemia E78.00 ; Primary osteoarthritis, unspecified site M19.91 ; PVD (peripheral vascular disease) I73.9 and Moderate single current episode of major depressive disorder F32.1 [facility] [id number] [place] [id number] Feb, Dental examination Z01.20 and Dental caries K02.9 [place] [id number] [place] [address] 14452- 9110 Feb, Primary osteoarthritis, unspecified site M19.91 [facility] [address] [place] [address] 52192- 3902 Feb, [facility] [address] [place] [address] 38815- 4541 Feb, [facility] [id number] [place] [address] 66240- 5688 Nov, [facility] [id number] [place] [address] 47531- 5060 Nov, Dupuytren's contracture of hand M72.0 ; Pure hypercholesterolemia E78.00 ; Essential hypertension I10 ; PVD (peripheral vascular disease) I73.9 ; Primary osteoarthritis, unspecified site M19.91 and Rheumatoid arthritis, involving unspecified site, unspecified rheumatoid factor presence M06.9 [facility] [address] [facility] [id number] [place] [address] Nov, IMMUNIZATIONS Vaccine Route Administration Date Status TESTOSTERONE (PT'S OWN) Unknown January 23, 2018 Administered SOCIAL HISTORY Never Assessed REASON FOR VISIT Testosterone injection PLAN OF CARE VITAL SIGNS MEDICATIONS Unknown Medications RESULTS No Results PROCEDURES Procedure Date Ordered Result Body Site TESTOSTERONE (PT'S OWN) January 23, 2018 THER/PROPH/DIAG INJ, SC/IM January 23, 2018 INSTRUCTIONS MEDICATIONS ADMINISTERED No Known Medications MEDICAL (GENERAL) HISTORY Type Description Date Medical History dupuytren's contracture-hand bilateral Medical History hypertension Medical History hyperlipidemia Medical History Arthritis Medical History peripheral vascular disease Medical History rheumatoid arthritis Surgical History cervical fusion C3-C7 -[facility] 05/2015 Surgical History dupuytren's contracture-bilateral hands Surgical History Artery bypass in right leg Surgical History Occipital bone surgery right side Surgical History surgery near right eye Surgical History [place] Left shoulder replacement 01/13/2018 Hospitalization History Surgery(s) only Hospitalization History [facility] [place]- Cold Symptoms 03/03/2018
--- OUTSIDE RECORDS SUMMARY | 2018-12-22 13:55 | XMS REPORT ---
Author Author SINDY LANDAVERDE Organization [facility] [place] Address [address] [place] [address] Care Team Providers Care Travel Registered Nurse Icu Name Role Phone SINDY LANDAVERDE Unavailable PROBLEMS Type Condition ICD9-CM Code [id number] Code Onset Dates Condition Status SNOMED Code Problem Lumbago with sciatica, left side M54.42 Active 187951945 Problem Chronic prescription opiate use Z79.891 Active 173220235 Problem Lumbago with sciatica, right side M54.41 Active 308252710585503 Problem Claustrophobia F40.240 Active 44414179 Problem Essential hypertension I10 Active 57327461 Problem Hypogonadism in male E29.1 Active 40492242 Problem Tear of left rotator cuff, unspecified tear extent M75.102 Active 8911257 Problem Left shoulder pain, unspecified chronicity M25.512 Active 22604294 Problem Hypotestosteronism E34.9 Active 7871149501173 Problem Erectile dysfunction, unspecified erectile dysfunction type N52.9 Active 888259140 Problem Primary osteoarthritis, unspecified site M19.91 Active 626043289 Problem Dupuytren's contracture of hand M72.0 Active 977381238 Problem PVD (peripheral vascular disease) I73.9 Active 036302951 Problem Rheumatoid arthritis, involving unspecified site, unspecified rheumatoid factor presence M06.9 Active 39827267 Problem Right leg claudication I73.9 Active 825938498 Problem Hyperlipidemia, unspecified hyperlipidemia type E78.5 Active 17722254 Problem Pure hypercholesterolemia E78.00 Active 696092130 Problem Primary osteoarthritis, 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 Active 95782336 Problem Moderate single current episode of major depressive disorder F32.1 Active 86396210 Problem Anxiety F41.9 Active 42624345 ALLERGIES No Information ENCOUNTERS Encounter Location Date Diagnosis [address] [id number] [id number] Apr, [facility] [address] [id number][place] [id number] Mar, Hypotestosteronism E34.9 [facility] [place] [address] [facility] [id number] [place] [id number] Mar, Claustrophobia F40.[address] [facility] [address] [id number][place] [id number] Mar, Hypotestosteronism E34.9 [facility] [address] [facility] [id number] [place] [address] Mar, Encounter for pre-operative laboratory testing Z01.[address] [facility] [address] [id number][place] [id number] Mar, Acute otitis externa of right ear, unspecified type H60.501 ; Hypotestosteronism E34.9 and Encounter for pre-operative laboratory testing Z01.[address] [facility] [address] [id number][place] [id number] Mar, [facility] [address] [id number], [place] [address] Mar, Hypogonadism in male E29.1 and Hypotestosteronism E34.[address] [facility] [address] [id number], [place] [address] Mar, Acute otitis externa of right ear, unspecified type H60.[address] [facility] [address] [id number][place] [id number] Mar, Hypotestosteronism E34.9 [facility] [address] [id number][place] [id number] Feb, [facility] [address] [facility] [id number] [place] [address] Feb, PVD (peripheral vascular disease) I73.9 ; Pure hypercholesterolemia E78.00 and Primary osteoarthritis, unspecified site M19.[address] [facility] [address] [id number], [place] [address] Feb, Hypotestosteronism E34.9 [facility] [address] [id number][place] [address] Feb, Upper respiratory infection, viral J06.[address] [facility] [address] [id number][place] [id number] Feb, Hypotestosteronism E34.9 [facility] [address]00565100[address] [place] [id number] January, [facility] [address] [id number][place] [address] January, Hypotestosteronism E34.9 [facility] [address] [facility] [address] [id number], [place] [address] January, Hypotestosteronism E34.9 [facility] [address]00565100[address] [place] [id number] Dec, [facility] [address] [facility] [address] [id number], [place] [id number] Dec, Erectile dysfunction, unspecified erectile dysfunction type N52.9 [facility] [address]00565100[address] [place] [id number] Dec, [facility] [address]65100[address] [place] [address] Dec, Pre-operative cardiovascular examination Z01.810 ; PVD (peripheral vascular disease) I73.9 ; Anxiety F41.9 ; Rheumatoid arthritis, involving unspecified site, unspecified rheumatoid factor presence M06.9 ; Essential hypertension I10 ; Hyperlipidemia, unspecified hyperlipidemia type E78.5 and Hypotestosteronism E34.[address] [facility] [address] [id number], [place] [address] Dec, [facility] [address] [id number], [place] [address] Dec, Erectile dysfunction, unspecified erectile dysfunction type N52.9 and Hypotestosteronism E34.[address] [facility] [address] [id number] [place] [id number] Dec, Hypotestosteronism E34.9 [facility] [place] [address] [facility] [id number] [place] [id number] Nov, [facility] [address] [facility] [id number] [place] [address] Nov, Hypotestosteronism E34.9 [facility] [place] [address] [facility] [id number] [place] [address] Nov, Pure hypercholesterolemia E78.00 and Primary osteoarthritis, unspecified site M19.91 [facility] [address] [id number], [place] [address] Nov, [facility] [address] [facility] [id number] [address] Nov, Tear of left glenoid labrum, subsequent encounter S43.432D [facility] [address] [id number], [place] [address] Nov, Hypotestosteronism E34.9 [facility] [address] [id number], [place] [address] Nov, [facility] [address] [id number], [place] [address] Nov, [facility] [address] [id number], [place] [address] Nov, Erectile dysfunction, unspecified erectile dysfunction type N52.9 [facility] [address] [id number], [place] [id number] Nov, Erectile dysfunction, unspecified erectile dysfunction type N52.9 [facility] [address] [id number] [place] [address] Nov, 2017 Viral upper respiratory tract infection J06.9 and Erectile dysfunction, unspecified erectile dysfunction type N52.[address] [facility] [address] [id number] [place] [id number] Oct, [facility] [address] [id number], [place] [address] Oct, [facility] [id number], [place] [address] Oct, Fall on same level due to nature of surface, initial encounter W18.39XA and Erectile dysfunction, unspecified erectile dysfunction type N52.9 [facility] [place] [id number] [place] [address] Sep, [facility] [place] [id number] [place] [address] Sep, Tear of left rotator cuff, unspecified tear extent M75.102 and Primary osteoarthritis, 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 [facility] [place] [id number] [place] [address] Aug, Primary osteoarthritis, unspecified site M19.91 [facility] [place] [id number] [place] [address] Jul, [facility] [place] [id number] [place] [address] Jul, Primary osteoarthritis, unspecified site M19.91 [facility] [place] [id number] [place] [address]22- [address] Jul, Lumbago with sciatica, right side M54.41 [facility] [place] [id number] [place] [address]186[address] Jul, Primary osteoarthritis, 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 and Injury of left rotator cuff, subsequent encounter S46.002D [facility] [place] [id number] [place] [address]49[address] Jul, [facility] [place] [id number] [place] [address]12[address] Jul, [facility] [place] [id number] [place] [address]406[address] Jul, [facility] [place] [address] [place] [address] Jul, Lumbago with sciatica, left side M54.42 ; Lumbago with sciatica, right side M54.41 ; Left shoulder pain, unspecified chronicity M25.512 and Essential hypertension I10 [facility] [place] [id number] [place] [address] Jun, Lumbago with sciatica, left side M54.42 ; Lumbago with sciatica, right side M54.41 ; Left shoulder pain, unspecified chronicity M25.512 ; Essential hypertension I10 ; Heart murmur previously undiagnosed R01.1 ; Overweight E66.3 ; Anxiety F41.9 and Chronic prescription opiate use Z79.891 [facility] [id number] [place] [address] 87658- [address] Jun, Primary osteoarthritis, unspecified site M19.91 [facility] [id number] [place] [address]17[address] Jun, [facility] [id number] [place] [address]83[address] May, Primary osteoarthritis, unspecified site M19.91 [facility] [id number] [place] [address] 79152- 6425 May, Injury of left rotator cuff, subsequent encounter S46.002D [facility] [id number] [place] [address] May, [facility] [id number] [place] [address]60[address] Apr, [place] [address] [address] Apr, PVD (peripheral vascular disease) I73.9 ; Right leg claudication I73.9 ; Hyperlipidemia, unspecified hyperlipidemia type E78.5 ; Occlusion of femoropopliteal bypass graft, 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 and Essential hypertension I10 [place] [address] [place] [address] Apr, Left shoulder pain, unspecified chronicity M25.512 [facility] [place] [id number] [place] [address] 31202- 4131 Mar, Left shoulder pain, unspecified chronicity M25.512 [facility] [place] [id number] [place] [address] 90825- 5191 Mar, [place] [id number] [place] [address] 09745- 0[address] Mar, [facility] [place] [id number] [place] [address] 28806- 0111 Mar, Dupuytren's contracture of hand M72.0 ; Essential hypertension I10 ; Pure hypercholesterolemia E78.00 ; Primary osteoarthritis, unspecified site M19.91 ; PVD (peripheral vascular disease) I73.9 and Moderate single current episode of major depressive disorder F32.1 [facility] [id number] [place] [id number] Feb, Dental examination Z01.20 and Dental caries K02.9 [place] [id number] [place] [address] 38899- 4186 Feb, Primary osteoarthritis, unspecified site M19.91 [facility] [place] [address] [place] [address] 67968- 5187 Feb, [facility] [place] [address] [place] [address] 87479- 9803 Feb, [facility] [place] [id number] [place] [address] 41084- [address] Nov, [facility] [place] [id number] [place] [address] 88995- 2414 Nov, Dupuytren's contracture of hand M72.0 ; Pure hypercholesterolemia E78.00 ; Essential hypertension I10 ; PVD (peripheral vascular disease) I73.9 ; Primary osteoarthritis, unspecified site M19.91 and Rheumatoid arthritis, involving unspecified site, unspecified rheumatoid factor presence M06.9 [facility] [address] [facility] [id number] [place] [address] Nov, IMMUNIZATIONS Vaccine Route Administration Date Status TESTOSTERONE (PT'S OWN) IM Intramuscular February 06, 2018 Administered SOCIAL HISTORY Never Assessed REASON FOR VISIT Testosterone injection bferrisma PLAN OF CARE VITAL SIGNS MEDICATIONS Unknown Medications RESULTS No Results PROCEDURES Procedure Date Ordered Result Body Site TESTOSTERONE (PT'S OWN) February 06, 2018 THER/PROPH/DIAG INJ, SC/IM February 06, 2018 INSTRUCTIONS MEDICATIONS ADMINISTERED No Known [...] History surgery near right eye Surgical History Liberal Left shoulder replacement 01/13/2018 Hospitalization History Surgery(s) only Hospitalization History [facility] [place]- Cold Symptoms 03/03/2018
--- OUTSIDE RECORDS SUMMARY | 2018-12-22 13:55 | XMS REPORT ---
Author Author SINDY LANDAVERDE Organization [facility] Address [address] [place] [address] Care Team Providers Care Assistant Professor Of Business Name Role Phone SINDY LANDAVERDE Unavailable PROBLEMS Type Condition ICD9-CM Code WUO25-WH Code Onset Dates Condition Status SNOMED Code Problem Lumbago with sciatica, left side M54.42 Active 265345178 Problem Chronic prescription opiate use Z79.891 Active 956830042 Problem Lumbago with sciatica, right side M54.41 Active 822562408782666 Problem Claustrophobia F40.240 Active 46838963 Problem Essential hypertension I10 Active 38777312 Problem Hypogonadism in male E29.1 Active 63421103 Problem Tear of left rotator cuff, unspecified tear extent M75.102 Active 6981353 Problem Left shoulder pain, unspecified chronicity M25.512 Active 92328038 Problem Hypotestosteronism E34.9 Active 7045437296382 Problem Erectile dysfunction, unspecified erectile dysfunction type N52.9 Active 289961748 Problem Primary osteoarthritis, unspecified site M19.91 Active 157571234 Problem Dupuytren's contracture of hand M72.0 Active 709811305 Problem PVD (peripheral vascular disease) I73.9 Active 942081649 Problem Rheumatoid arthritis, involving unspecified site, unspecified rheumatoid factor presence M06.9 Active 65943684 Problem Right leg claudication I73.9 Active 926723094 Problem Hyperlipidemia, unspecified hyperlipidemia type E78.5 Active 22225594 Problem Pure hypercholesterolemia E78.00 Active 075906856 Problem Primary osteoarthritis, 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 Active 90395621 Problem Moderate single current episode of major depressive disorder F32.1 Active 03723960 Problem Anxiety F41.9 Active 84569800 ALLERGIES No Information ENCOUNTERS Encounter Location Date Diagnosis [address] [id number] [id number] Apr, [facility] [address] [id number] [place] [id number] Mar, Hypotestosteronism E34.9 [facility] [address] [facility] [id number][place] [id number] Mar, Claustrophobia F40.[address] [facility] [address] [id number] [place]LAND[place] [id number] Mar, Hypotestosteronism E34.9 [facility] [address] [facility] [id number] [place] [address] Mar, Encounter for pre-operative laboratory testing Z01.[address] [facility] [address] [id number] [place] [id number] Mar, Acute otitis externa of right ear, unspecified type H60.501 ; Hypotestosteronism E34.9 and Encounter for pre-operative laboratory testing Z01.[address] [facility] [address] [id number] [place]LAND[place] [id number] Mar, [facility] [address] [id number] [place] [id number] Mar, Hypogonadism in male E29.1 and Hypotestosteronism E34.[address] [facility] [address] [id number] [place]LAND[place] [id number] Mar, Acute otitis externa of right ear, unspecified type H60.[address] [facility] [address] [id number] [place] [id number] Mar, Hypotestosteronism E34.9 [facility] [address] [id number] [place] [id number] Feb, [facility] [address] [facility] [id number][place] [id number] Feb, PVD (peripheral vascular disease) I73.9 ; Pure hypercholesterolemia E78.00 and Primary osteoarthritis, unspecified site M19.[address] [facility] [address] [id number] [place] [id number] Feb, Hypotestosteronism E34.9 [facility] [address] [id number] [place]LAND[place] [id number] Feb, Upper respiratory infection, viral J06.[address] [facility] [address] [id number] [place]LAND[place] [id number] Feb, Hypotestosteronism E34.9 [facility] [address]65[address] [id number] January, [facility] [address] [id number] [place]LAND[place] [id number] January, Hypotestosteronism E34.9 [facility] [address] [facility] [id number] [place]LAND[place] [id number] January, Hypotestosteronism E34.9 [facility] [address]65100[place] [id number] Dec, [facility] [address] [facility] [id number] [place] [id number] Dec, Erectile dysfunction, unspecified erectile dysfunction type N52.9 [facility] [address]65100[place] [id number] Dec, [facility] [address]65100[place] [id number] Dec, Pre-operative cardiovascular examination Z01.810 ; PVD (peripheral vascular disease) I73.9 ; Anxiety F41.9 ; Rheumatoid arthritis, involving unspecified site, unspecified rheumatoid factor presence M06.9 ; Essential hypertension I10 ; Hyperlipidemia, unspecified hyperlipidemia type E78.5 and Hypotestosteronism E34.[address] [facility] [address] [id number] [place]LAND[place] [id number] Dec, [facility] [address] [id number] [place]LAND[place] [id number] Dec, Erectile dysfunction, unspecified erectile dysfunction type N52.9 and Hypotestosteronism E34.[address] [facility] [address] [id number] [place] [id number] Dec, Hypotestosteronism E34.9 [facility] [place] [address] [facility] [id number], [place] [id number] Nov, [facility] [address] [facility] [id number] [place] [address] Nov, Hypotestosteronism E34.9 [facility] [place] [address] [facility] [id number], [place] [id number] Nov, Pure hypercholesterolemia E78.00 and Primary osteoarthritis, unspecified site M19.91 [facility] [address] [id number] [place] [id number] Nov, [facility] [address] [facility] [id number], [place] [address] Nov, Tear of left glenoid labrum, subsequent encounter S43.432D [facility] [address] [id number] [place] [id number] Nov, Hypotestosteronism E34.9 [facility] [address] [id number] [place]LAND[place] [id number] Nov, [facility] [address] [id number] [place] [id number] Nov, [facility] [address] [id number] [place]LAND[place] [id number] Nov, Erectile dysfunction, unspecified erectile dysfunction type N52.9 [facility] [address] [id number] [place] [id number] Nov, Erectile dysfunction, unspecified erectile dysfunction type N52.9 [facility] [address] [id number] [place] [address] Nov, 2017 Viral upper respiratory tract infection J06.9 and Erectile dysfunction, unspecified erectile dysfunction type N52.[address] [facility] [address] [id number] [place] [id number] Oct, [facility] [address] [id number] [place]LAND[place] [id number] Oct, [facility] [address] [id number] [place] [id number] Oct, Fall on same level due to nature of surface, initial encounter W18.39XA and Erectile dysfunction, unspecified erectile dysfunction type N52.9 [facility] [id number] [place] [address] Sep, [facility] [id number] [place] [address] Sep, Tear of left rotator cuff, unspecified tear extent M75.102 and Primary osteoarthritis, 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 [facility] [id number] [place] [address] Aug, Primary osteoarthritis, unspecified site M19.91 [facility] [id number] [place] [address] Jul, [facility] [id number] [place] [address] Jul, Primary osteoarthritis, unspecified site M19.91 [facility] [id number] [place] [address] Jul, Lumbago with sciatica, right side M54.41 [facility] [id number] [place] [address] Jul, Primary osteoarthritis, 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512 and Essential hypertension I10 [place] [id number] [place] [address] Jun, Lumbago with sciatica, left side M54.42 ; Lumbago with sciatica, right side M54.41 ; Left shoulder pain, unspecified chronicity M25.512 ; Essential hypertension I10 ; Heart murmur previously undiagnosed R01.1 ; Overweight E66.3 ; Anxiety F41.9 and Chronic prescription opiate use Z79.891 [place] [id number] [place] [address]62[address] 4[address] Jun, Primary osteoarthritis, unspecified site M19.91 [place] [id number] [place] [address]12- 6298 Jun, [place] [id number] [place] [address]62- 7814 May, Primary osteoarthritis, unspecified site M19.91 [place] [id number] [place] [address]38- 2507 May, Injury of left rotator cuff, subsequent encounter S46.002D [place] [id number] [place] [address]44- 8706 May, [place] [id number] [place] [address] 8[address]66- 1509 Apr, [place] [address] [address] Apr, PVD (peripheral vascular disease) I73.9 ; Right leg claudication I73.9 ; Hyperlipidemia, unspecified hyperlipidemia type E78.5 ; Occlusion of femoropopliteal bypass graft, 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 and Essential hypertension I10 [place] [address] [place] [address] Apr, Left shoulder pain, unspecified chronicity M25.512 [facility] [id number] [place] [address] 25609- 0436 Mar, Left shoulder pain, unspecified chronicity M25.512 [facility] [id number] [place] [address] 13065- 0152 Mar, [place] [id number] [place] [address] 10548- 5777 Mar, [facility] [id number] [place] [address] 18274- 9051 Mar, Dupuytren's contracture of hand M72.0 ; Essential hypertension I10 ; Pure hypercholesterolemia E78.00 ; Primary osteoarthritis, unspecified site M19.91 ; PVD (peripheral vascular disease) I73.9 and Moderate single current episode of major depressive disorder F32.1 [facility] [id number] [place] [id number] Feb, Dental examination Z01.20 and Dental caries K02.9 [place] [id number] [place] [address] 59941- 5517 Feb, Primary osteoarthritis, unspecified site M19.91 [facility] [address] [place] [address]955- 3109 Feb, [facility] [id number] [place] [address] 42785- 2756 Feb, [facility] [id number] [place] [address] 28841- 7881 Nov, [facility] [id number] [place] [address] 38998- 0916 Nov, Dupuytren's contracture of hand M72.0 ; Pure hypercholesterolemia E78.00 ; Essential hypertension I10 ; PVD (peripheral vascular disease) I73.9 ; Primary osteoarthritis, unspecified site M19.91 and Rheumatoid arthritis, involving unspecified site, unspecified rheumatoid factor presence M06.9 [facility] [address] [facility] [id number] [place] [address] Nov, IMMUNIZATIONS No Known Immunizations SOCIAL HISTORY Never Assessed REASON FOR VISIT PLAN OF CARE VITAL SIGNS MEDICATIONS Medication Instructions Dosage Frequency Start Date End Date Duration Status Testosterone Cypionate 200 MG/ML Intramuscular every two weeks 0.5 ml January, 0 days Active RESULTS No Results PROCEDURES No Known procedures INSTRUCTIONS MEDICATIONS ADMINISTERED No Known Medications MEDICAL (GENERAL) HISTORY Type Description Date Medical History dupuytren's contracture-hand bilateral Medical History hypertension Medical History hyperlipidemia Medical History Arthritis Medical History peripheral vascular disease Medical History rheumatoid arthritis Surgical History cervical fusion C3-C7 -[facility] 05/2015 Surgical History dupuytren's contracture-bilateral hands Surgical History Artery bypass in right leg Surgical History Occipital bone surgery right side Surgical History surgery near right eye Surgical History [place] Left shoulder replacement 01/13/2018 Hospitalization History Surgery(s) only Hospitalization History [facility] [place]- Cold Symptoms 03/03/2018
--- OUTSIDE RECORDS SUMMARY | 2018-12-22 13:55 | XMS REPORT ---
Author Author SINDY LANDAVERDE Organization [facility] Address [address] [place] [address] Care Team Providers Care Stereotyper Apprentice Name Role Phone SINDY LANDAVERDE Unavailable PROBLEMS Type Condition ICD9-CM Code PVH27-PN Code Onset Dates Condition Status SNOMED Code Problem Lumbago with sciatica, left side M54.42 Active 182950306 Problem Chronic prescription opiate use Z79.891 Active 513903198 Problem Lumbago with sciatica, right side M54.41 Active 545666055874518 Problem Claustrophobia F40.240 Active 21533417 Problem Essential hypertension I10 Active 29768999 Problem Hypogonadism in male E29.1 Active 34042081 Problem Tear of left rotator cuff, unspecified tear extent M75.102 Active 7994138 Problem Left shoulder pain, unspecified chronicity M25.512 Active 61818525 Problem Hypotestosteronism E34.9 Active 0296004582246 Problem Erectile dysfunction, unspecified erectile dysfunction type N52.9 Active 656315596 Problem Primary osteoarthritis, unspecified site M19.91 Active 775231467 Problem Dupuytren's contracture of hand M72.0 Active 384754925 Problem PVD (peripheral vascular disease) I73.9 Active 508334390 Problem Rheumatoid arthritis, involving unspecified site, unspecified rheumatoid factor presence M06.9 Active 48731654 Problem Right leg claudication I73.9 Active 819450145 Problem Hyperlipidemia, unspecified hyperlipidemia type E78.5 Active 09616264 Problem Pure hypercholesterolemia E78.00 Active 344824575 Problem Primary osteoarthritis, 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 [id number] [place] [id number] Mar, Claustrophobia F40.[address] [facility] [address] [id number][place] [id number] Mar, Hypotestosteronism E34.9 [facility] [address] [facility] [id number][place] [address] Mar, Encounter for pre-operative laboratory testing Z01.[address] [facility] [address] [id number][place] [address] Mar, Acute otitis externa of right ear, unspecified type H60.501 ; Hypotestosteronism E34.9 and Encounter for pre-operative laboratory testing Z01.[address] [facility] [address] [id number][place] [id number] Mar, [facility] [address] [id number][place] [id number] Mar, Hypogonadism in male E29.1 and Hypotestosteronism E34.[address] [facility] [address] [id number][place] [id number] Mar, Acute otitis externa of right ear, unspecified type H60.[address] [facility] [address] [id number][place] [id number] Mar, Hypotestosteronism E34.[address] [facility] [address] [id number][place] [id number] Feb, [facility] [address] [facility] [id number] [id number] Feb, PVD (peripheral vascular disease) I73.9 ; Pure hypercholesterolemia E78.00 and Primary osteoarthritis, unspecified site M19.[address] [facility] [address] [id number][place] [id number] Feb, Hypotestosteronism E34.[address] [facility] [address] [id number] [place] [id number] Feb, Upper respiratory infection, viral J06.9 [facility] [address] [id number] [place] [id number] Feb, Hypotestosteronism E34.9 [facility] [address] [id number][place] [id number] January, [facility] [address] [id number][place] [id number] January, Hypotestosteronism E34.9 [facility] [address] [facility] [address] [id number][place] [id number] January, Hypotestosteronism E34.9 [facility] [address]00565100[place] [id number] Dec, [facility] [address] [facility] [address] [id number][place] [id number] Dec, Erectile dysfunction, unspecified erectile dysfunction type N52.9 [facility] [place] [address] [facility] [id number][place] [id number] Dec, [facility] [address]65100[place] [address] Dec, Pre-operative cardiovascular examination Z01.810 ; PVD (peripheral vascular disease) I73.9 ; Anxiety F41.9 ; Rheumatoid arthritis, involving unspecified site, unspecified rheumatoid factor presence M06.9 ; Essential hypertension I10 ; Hyperlipidemia, unspecified hyperlipidemia type E78.5 and Hypotestosteronism E34.9 [facility] [address] [id number], [place] [id number] Dec, [facility] [address] [id number], [place] [id number] Dec, Erectile dysfunction, unspecified erectile dysfunction type N52.9 and Hypotestosteronism E34.9 [facility] [address] [id number] [place] [id number] Dec, Hypotestosteronism E34.9 [facility] [address] [facility] [id number] [place] [id number] Nov, [facility] [address] [facility] [id number], [place] [address] Nov, Hypotestosteronism E34.9 [facility] [address] [facility] [id number] [place] [id number] Nov, Pure hypercholesterolemia E78.00 and Primary osteoarthritis, unspecified site M19.[address] [facility] [address] [id number], [place] [id number] Nov, [facility] [address] [facility] [id number], [place] [address] Nov, Tear of left glenoid labrum, subsequent encounter S43.432D [facility] [address] [id number][place] [id number] Nov, Hypotestosteronism E34.[address] [facility] [address] [id number], [place] [id number] Nov, [facility] [address] [id number], [place] [address] Nov, [facility] [address] [id number], [place] [address] Nov, Erectile dysfunction, unspecified erectile dysfunction type N52.[address] [facility] [address] [id number][place] [id number] Nov, Erectile dysfunction, unspecified erectile dysfunction type N52.[address] [facility] [address] [id number] [place] [id number] Nov, Viral upper respiratory tract infection J06.9 and Erectile dysfunction, unspecified erectile dysfunction type N52.[address] [facility] [address] [id number] [place] [id number] Oct, [facility] [address] [id number] [place] [address] Oct, [facility] [address] [address] [id number] [place] [id number] Oct, Fall on same level due to nature of surface, initial encounter W18.39XA and Erectile dysfunction, unspecified erectile dysfunction type N52.9 [facility] [address] [place] [address] Sep, [facility] [address] [place] [id number] [place] [address] Sep, Tear of left rotator cuff, unspecified tear extent M75.102 and Primary osteoarthritis, 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 [place] [address] [place] [id number] [place] [address] Aug, Primary osteoarthritis, unspecified site M19.91 [facility] [address] [place] [id number] [place] [address]21[address] Jul, [facility] [address] [place] [id number] [place] [address]478 Jul, Primary osteoarthritis, unspecified site M19.91 [facility] [address] [place] [id number] [place] [address] Jul, Lumbago with sciatica, right side M54.41 [facility] [address] [place] [address] Jul, Primary osteoarthritis, 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 and Injury of left rotator cuff, subsequent encounter S46.002D [facility] [address] [place] [address] 8[address]89- 8495 Jul, [facility] [address] [place] [address] 68436- 8882 Jul, [facility] [address] [place] [id number] [place] [address] Jul, [facility] [address] [place] [address]8083- [address] Jul, Lumbago with sciatica, left side M54.42 ; Lumbago with sciatica, right side M54.41 ; Left shoulder pain, unspecified chronicity M25.512 and Essential hypertension I10 [place] [address] [place] [id number] [place] [address] Jun, Lumbago with sciatica, left side M54.42 ; Lumbago with sciatica, right side M54.41 ; Left shoulder pain, unspecified chronicity M25.512 ; Essential hypertension I10 ; Heart murmur previously undiagnosed R01.1 ; Overweight E66.3 ; Anxiety F41.9 and Chronic prescription opiate use Z79.891 [place] [address] [address] Jun, Primary osteoarthritis, unspecified site M19.91 [place] [address] [place] [id number] [place] [address]47[address] Jun, [place] [address] [address] May, Primary osteoarthritis, unspecified site M19.91 [place] [address] [place] [id number] [place] [address] 07660- 0552 May, Injury of left rotator cuff, subsequent encounter S46.002D [place] [address] [place] [id number] [place] [address]15[address] May, [place] [address] [address] Apr, [place] [address] [place] [id number] [place] [address]187[address]606 Apr, PVD (peripheral vascular disease) I73.9 ; Right leg claudication I73.9 ; Hyperlipidemia, unspecified hyperlipidemia type E78.5 ; Occlusion of femoropopliteal bypass graft, 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 and Essential hypertension I10 [place] [address] [place] [id number] [place] [address]67[address] 4[address] Apr, Left shoulder pain, unspecified chronicity M25.512 [facility] [address] [place] [address] 53162- 2034 Mar, Left shoulder pain, unspecified chronicity M25.512 [facility] [address] [place] [address] 85476- 4441 Mar, [facility] [address] [place] [id number] [place] [address] 55342- 3069 Mar, [facility] [address] [place] [id number] [place] [address] 93398- 3051 Mar, Dupuytren's contracture of hand M72.0 ; Essential hypertension I10 ; Pure hypercholesterolemia E78.00 ; Primary osteoarthritis, unspecified site M19.91 ; PVD (peripheral vascular disease) I73.9 and Moderate single current episode of major depressive disorder F32.1 [facility] [address] [place] [id number] Feb, Dental examination Z01.20 and Dental caries K02.9 [place] [address] [place] [id number] [place] [address] 16398- 7133 Feb, Primary osteoarthritis, unspecified site M19.91 [place] [address] [place] [id number] [place] [address] 75569- 1562 Feb, [place] [address] [place] [address] 49661[address] 1538 Feb, [place] [address] [place] [address] 79423- 5479 Nov, [place] [address] [place] [address] 89436- 8796 Nov, Dupuytren's contracture of hand M72.0 ; Pure hypercholesterolemia E78.00 ; Essential hypertension I10 ; PVD (peripheral vascular disease) I73.9 ; Primary osteoarthritis, unspecified site M19.91 and Rheumatoid arthritis, involving unspecified site, unspecified rheumatoid factor presence M06.9 [place] [address] [place] [id number] [place] [address]68- 6386 Nov, IMMUNIZATIONS No Known Immunizations SOCIAL HISTORY Never Assessed REASON FOR VISIT refill on Ultram from pharmacy PLAN OF CARE VITAL SIGNS MEDICATIONS Unknown Medications RESULTS No Results PROCEDURES No Known procedures INSTRUCTIONS MEDICATIONS ADMINISTERED No Known Medications MEDICAL (GENERAL) HISTORY Type Description Date Medical History dupuytren's contracture-hand bilateral Medical History hypertension Medical History hyperlipidemia Medical History Arthritis Medical History peripheral vascular disease Medical History rheumatoid arthritis Surgical History cervical fusion C3-C7 -[facility] 05/2015 Surgical History dupuytren's contracture-bilateral hands Surgical History Artery bypass in right leg Surgical History Occipital bone surgery right side Surgical History surgery near right eye Surgical History [place] Left shoulder replacement 01/13/2018 Hospitalization History Surgery(s) only Hospitalization History [facility]- Cold Symptoms 03/03/2018
--- OUTSIDE RECORDS SUMMARY | 2018-12-22 13:56 | XMS REPORT ---
Author Author SINDY LANDAVERDE Organization [facility] Address [address] [place] [address] Care Team Providers Care Excel Analyst Name Role Phone SAIMA SINDY Unavailable PROBLEMS Type Condition ICD9-CM Code DVX50-LV Code Onset Dates Condition Status SNOMED Code Problem Lumbago with sciatica, left side M54.42 Active 132307837 Problem Chronic prescription opiate use Z79.891 Active 042360993 Problem Lumbago with sciatica, right side M54.41 Active 536782892458835 Problem Claustrophobia F40.240 Active 21786116 Problem Essential hypertension I10 Active 70845483 Problem Hypogonadism in male E29.1 Active 30699079 Problem Tear of left rotator cuff, unspecified tear extent M75.102 Active 5697681 Problem Left shoulder pain, unspecified chronicity M25.512 Active 98081032 Problem Hypotestosteronism E34.9 Active 7235040376702 Problem Erectile dysfunction, unspecified erectile dysfunction type N52.9 Active 560002679 Problem Primary osteoarthritis, unspecified site M19.91 Active 949309692 Problem Dupuytren's contracture of hand M72.0 Active 391408293 Problem PVD (peripheral vascular disease) I73.9 Active 717295002 Problem Rheumatoid arthritis, involving unspecified site, unspecified rheumatoid factor presence M06.9 Active 31327652 Problem Right leg claudication I73.9 Active 285351216 Problem Hyperlipidemia, unspecified hyperlipidemia type E78.5 Active 83506982 Problem Pure hypercholesterolemia E78.00 Active 870357945 Problem Primary osteoarthritis, 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 Active 28135212 Problem Moderate single current episode of major depressive disorder F32.1 Active 73686022 Problem Anxiety F41.9 Active 72541924 ALLERGIES Substance Reaction Event Type Date Status Niacin Unknown Drug Allergy Dec, Active ENCOUNTERS Encounter Location Date Diagnosis [address] [id number] [id number] Mar, Hypotestosteronism E34.9 [facility] [address] [facility] [id number] [id number] Mar, Claustrophobia F40.[address] [facility] [address] [id number][place] [id number] Mar, Hypotestosteronism E34.9 [facility] [address] [facility] [id number], [place] [address] Mar, Encounter for pre-operative laboratory testing Z01.[address] [facility] [address] [id number][place] [id number] Mar, Acute otitis externa of right ear, unspecified type H60.501 ; Hypotestosteronism E34.9 and Encounter for pre-operative laboratory testing Z01.[address] [facility] [address] [id number][place] [id number] Mar, [facility] [address] [id number][place] [id number] Mar, Hypogonadism in male E29.1 and Hypotestosteronism E34.[address] [facility] [address] [id number][place] [id number] Mar, Acute otitis externa of right ear, unspecified type H60.[address] [facility] [address] [id number][place] [id number] Mar, Hypotestosteronism E34.[address] [facility] [address] [id number][place] [id number] Feb, [facility] [address] [facility] [id number][place] [id number] Feb, PVD (peripheral vascular disease) I73.9 ; Pure hypercholesterolemia E78.00 and Primary osteoarthritis, unspecified site M19.[address] [facility] [address] [id number][place] [id number] Feb, Hypotestosteronism E34.[address] [facility] [address] [id number] [place] [id number] Feb, Upper respiratory infection, viral J06.[address] [facility] [address] [id number][place] [id number] Feb, [facility]otestosteronism E34.9 [facility] [address] [id number] January, [facility] [address] [id number][place] [id number] January, Hypotestosteronism E34.9 [facility] [address] [facility] [address] [id number][place] [id number] January, Hypotestosteronism E34.9 [facility] [address]65[place] [id number] Dec, [facility] [address] [facility] [address] [id number][place] [id number] Dec, Erectile dysfunction, unspecified erectile dysfunction type N52.9 [facility] [id number] [id number] Dec, [facility] [address]65[address] [address] Dec, Pre-operative cardiovascular examination Z01.810 ; PVD (peripheral vascular disease) I73.9 ; Anxiety F41.9 ; Rheumatoid arthritis, involving unspecified site, unspecified rheumatoid factor presence M06.9 ; Essential hypertension I10 ; Hyperlipidemia, unspecified hyperlipidemia type E78.5 and Hypotestosteronism E34.[address] [facility] [address] [id number] [place] [id number] Dec, [facility] [address] [id number], [place] [id number] Dec, Erectile dysfunction, unspecified erectile dysfunction type N52.9 and Hypotestosteronism E34.9 [facility] [address] [id number], [place] [id number] Dec, Hypotestosteronism E34.9 [facility] [address] [facility] [id number], [place] [id number] Nov, [facility] [address] [facility] [id number], [place] [address] Nov, Hypotestosteronism E34.9 [facility] [address] [facility] [id number], [place] [id number] Nov, Pure hypercholesterolemia E78.00 and Primary osteoarthritis, unspecified site M19.[address] [facility] [address] [id number][place] [id number] Nov, [facility] [address] [facility] [id number], [place] [address] Nov, Tear of left glenoid labrum, subsequent encounter S43.432D [facility] [address] [id number][place] [id number] Nov, Hypotestosteronism E34.[address] [facility] [address] [id number][place] [id number] Nov, [facility] [address] [id number][place] [id number] Nov, [facility] [address] [id number][place] [id number] Nov, Erectile dysfunction, unspecified erectile dysfunction type N52.[address] [facility] [address] [id number] [place] [id number] Nov, Erectile dysfunction, unspecified erectile dysfunction type N52.9 [facility] [address] [id number] [place] [id number] Nov, 2017 Viral upper respiratory tract infection J06.9 and Erectile dysfunction, unspecified erectile dysfunction type N52.[address] [facility] [address] [id number] [place] [id number] Oct, [facility] [address] [id number], [place] [id number] Oct, [facility] [address] [id number][place] [id number] Oct, Fall on same level due to nature of surface, initial encounter W18.39XA and Erectile dysfunction, unspecified erectile dysfunction type N52.9 [facility] [address] [place] [id number] [place] [address] Sep, [facility] [address] [address] Sep, Tear of left rotator cuff, unspecified tear extent M75.102 and Primary osteoarthritis, 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 [facility] [address] [address] Aug, Primary osteoarthritis, unspecified site M19.91 [facility] [address] [place] [id number] [place] [address] Jul, [facility] [address] [place] [id number] [place] [address] Jul, Primary osteoarthritis, unspecified site M19.91 [facility] [address] [place] [id number] [place] [address] Jul, Lumbago with sciatica, right side M54.41 [facility] [address] [place] [id number] [place] [address] Jul, Primary osteoarthritis, 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 and Injury of left rotator cuff, subsequent encounter S46.002D [facility] [address] [place] [id number] [place] [address] Jul, [facility] [address] [address] Jul, [facility] [address] [place] [id number] [place] [address] Jul, [facility] [address] [place] [id number] [place] [address] Jul, Lumbago with sciatica, left side M54.42 ; Lumbago with sciatica, right side M54.41 ; Left shoulder pain, unspecified chronicity M25.512 and Essential hypertension I10 [place] [address] [place] [id number] [place] [address] Jun, Lumbago with sciatica, left side M54.42 ; Lumbago with sciatica, right side M54.41 ; Left shoulder pain, unspecified chronicity M25.512 ; Essential hypertension I10 ; Heart murmur previously undiagnosed R01.1 ; Overweight E66.3 ; Anxiety F41.9 and Chronic prescription opiate use Z79.891 [place] [address] [address] Jun, Primary osteoarthritis, unspecified site M19.91 [place] [address] [address] Jun, [place] [address] [address] May, Primary osteoarthritis, unspecified site M19.91 [place] [address] [address] May, Injury of left rotator cuff, subsequent encounter S46.002D [place] [address] [address] May, [place] [address] [address] Apr, [place] [address] [place] [id number] [place] [address] Apr, PVD (peripheral vascular disease) I73.9 ; Right leg claudication I73.9 ; Hyperlipidemia, unspecified hyperlipidemia type E78.5 ; Occlusion of femoropopliteal bypass graft, 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 and Essential hypertension I10 [place] [address] [address] Apr, Left shoulder pain, unspecified chronicity M25.512 [facility] [address] [address] Mar, Left shoulder pain, unspecified chronicity M25.512 [facility] [address] [place] [id number] [address] Mar, [place] [address] [place] [id number] [place] [address] Mar, [facility] [address] [place] [id number] [address] Mar, Dupuytren's contracture of hand M72.0 ; Essential hypertension I10 ; Pure hypercholesterolemia E78.00 ; Primary osteoarthritis, unspecified site M19.91 ; PVD (peripheral vascular disease) I73.9 and Moderate single current episode of major depressive disorder F32.[address] [facility] [address] [place] [id number] Feb, Dental examination Z01.20 and Dental caries K02.9 [place] [address] [place] [address] Feb, Primary osteoarthritis, unspecified site M19.91 [place] [address], [place] [address] Feb, [place] [address] [address] Feb, [facility] [address] [place] [id number] [place] [address] Nov, [facility] [address] [place] [address] Nov, Dupuytren's contracture of hand M72.0 ; Pure hypercholesterolemia E78.00 ; Essential hypertension I10 ; PVD (peripheral vascular disease) I73.9 ; Primary osteoarthritis, unspecified site M19.91 and Rheumatoid arthritis, involving unspecified site, unspecified rheumatoid factor presence M06.9 [place] [address] [facility] [id number] [address] Nov, IMMUNIZATIONS No Known Immunizations SOCIAL HISTORY Never Assessed REASON FOR VISIT Surgical clearancel for left shoulder replacement on 01/13/[address] Wallace-- -essie RN PLAN OF CARE Activity Details Follow Up keep as previously instructed Reason: VITAL SIGNS Height 69 in 2018-01-03 Weight 251.2 lbs 2018-01-03 Temperature 97.1 degrees Fahrenheit 2018-01-03 Heart Rate 107 bpm 2018-01-03 Respiratory Rate 18 2018-01-03 BMI 37.09 kg/m2 2018-01-03 Blood pressure systolic 148 mmHg 2018-01-03 Blood pressure diastolic 88 mmHg 2018-01-03 MEDICATIONS Medication Instructions Dosage Frequency Start Date End Date Duration Status Diazepam 10 mg Orally once, 30-60 min before procedure 1 tablet as needed Nov, 1 dose Active Lopid 600 MG Orally Twice a day 1 tablet 12h Nov, 30 day(s) Active Aspirin Adult Low Dose 81 MG Orally Once a day 1 tablet 24h Active Lipitor 20 mg Orally Once a day 1 tablet 24h 90 days Active Lisinopril-Hydrochlorothiazide 10-12.5 MG Orally Once a day 1 tablet 24h 90 days Active Tramadol HCl 50 MG Orally TID PRN TAKE ONE TABLET BY MOUTH THREE TIMES DAILY NEEDED 28 Active Cetirizine HCl 10 mg Orally Once a day 1 tablet 24h Nov, Active Duloxetine HCl 60 mg Orally Once a day 1 capsule 24h 21 Feb, 2017 90 days Active Cane - Active Testosterone Cypionate 100 MG/ML Intramuscular every 2 weeks 1 ml Dec 28 days Active Plavix 75 MG Orally Once a day 1 tablet 24h Active Cyclobenzaprine HCl 10 mg Orally Three times a day 1 tablet as needed 8h Active Hydrocodone-Acetaminophen 5-325 MG Orally 3 times a day 1 tablet as needed 8h Nov, 28 Active RESULTS No Results PROCEDURES Procedure Date Ordered Result Body Site EKG, TRACING (IN-HOUSE) 2018-01-03 Appropriate ELECTROCARDIOGRAM, TRACING January 03, 2018 [facility] VISIT ESTABLISHED PATIENT January 03, 2018 INSTRUCTIONS MEDICATIONS ADMINISTERED No Known Medications MEDICAL (GENERAL) HISTORY Type Description Date Medical History dupuytren's contracture-hand bilateral Medical History hypertension Medical History hyperlipidemia Medical History Arthritis Medical History peripheral vascular disease Medical History rheumatoid arthritis Surgical History cervical fusion C3-C7 -[facility] 05/2015 Surgical History dupuytren's contracture-bilateral hands Surgical History Artery bypass in right leg Surgical History Occipital bone surgery right side Surgical History surgery near right eye Surgical History [place] Left shoulder replacement 01/13/2018 Hospitalization History Surgery(s) only Hospitalization History [facility] [place]- Cold Symptoms 03/03/2018
--- OUTSIDE RECORDS SUMMARY | 2018-12-22 13:56 | XMS REPORT ---
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 Name Role Phone SINDY LANDAVERDE Unavailable PROBLEMS Type Condition ICD9-CM Code EPV24-XV Code Onset Dates Condition Status SNOMED Code Problem Lumbago with sciatica, left side M54.42 Active 590011875 Problem Chronic prescription opiate use Z79.891 Active 834966438 Problem Lumbago with sciatica, right side M54.41 Active 727793390528971 Problem Claustrophobia F40.240 Active 31878508 Problem Essential hypertension I10 Active 64419631 Problem Hypogonadism in male E29.1 Active 52248498 Problem Tear of left rotator cuff, unspecified tear extent M75.102 Active 3948597 Problem Left shoulder pain, unspecified chronicity M25.512 Active 76867581 Problem Hypotestosteronism E34.9 Active 5765693717614 Problem Erectile dysfunction, unspecified erectile dysfunction type N52.9 Active 412929644 Problem Primary osteoarthritis, unspecified site M19.91 Active 848330884 Problem Dupuytren's contracture of hand M72.0 Active 770059886 Problem PVD (peripheral vascular disease) I73.9 Active 401164618 Problem Rheumatoid arthritis, involving unspecified site, unspecified rheumatoid factor presence M06.9 Active 64745643 Problem Right leg claudication I73.9 Active 228801644 Problem Hyperlipidemia, unspecified hyperlipidemia type E78.5 Active 63728556 Problem Pure hypercholesterolemia E78.00 Active 028763248 Problem Primary osteoarthritis, 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 [address] [facility] [id number] [address] Mar, Encounter for pre-operative laboratory testing Z01.[address] [facility] [address] [id number][place] [address] Mar, Acute otitis externa of right ear, unspecified type H60.501 ; Hypotestosteronism E34.9 and Encounter for pre-operative laboratory testing Z01.[address] [facility] [address] [id number][place] [id number] Mar, [facility] [address] [id number], [place] [id number] Mar, Hypogonadism in male E29.1 and Hypotestosteronism E34.[address] [facility] [address] [id number][place] [id number] Mar, Acute otitis externa of right ear, unspecified type H60.[address] [facility] [address] [id number][place] [id number] Mar, Hypotestosteronism E34.[address] [facility] [address] [id number][place] [id number] Feb, [facility] [address] [facility] [id number] [place] [id number] Feb, PVD (peripheral vascular disease) I73.9 ; Pure hypercholesterolemia E78.00 and Primary osteoarthritis, unspecified site M19.[address] [facility] [address] [id number][place] [id number] Feb, Hypotestosteronism E34.[address] [facility] [address] [id number] [place] [id number] Feb, Upper respiratory infection, viral J06.9 [facility] [address] [id number] [place] [id number] Feb, Hypotestosteronism E34.9 [facility] [address] [id number] [place] [id number] January, [facility] [address] [id number][place] [id number] January, Hypotestosteronism E34.9 [facility] [address] [facility] [address] [id number], [place] [id number] January, Hypotestosteronism E34.9 [facility] [address]65100[place] [id number] Dec, [facility] [address] [facility] [address] [id number], [place] [id number] Dec, Erectile dysfunction, unspecified erectile dysfunction type N52.9 [facility] [place] [address] [facility] [id number] [place] [id number] Dec, [facility] [address]65100[place] [address] Dec, Pre-operative cardiovascular examination Z01.810 ; PVD (peripheral vascular disease) I73.9 ; Anxiety F41.9 ; Rheumatoid arthritis, involving unspecified site, unspecified rheumatoid factor presence M06.9 ; Essential hypertension I10 ; Hyperlipidemia, unspecified hyperlipidemia type E78.5 and Hypotestosteronism E34.9 [facility] [address] [id number][place] [id number] Dec, [facility] [address] [id number], [place] [id number] Dec, Erectile dysfunction, unspecified erectile dysfunction type N52.9 and Hypotestosteronism E34.9 [facility] [address] [id number] [place] [id number] Dec, Hypotestosteronism E34.9 [facility] [address] [facility] [id number] [place] [id number] Nov, [facility] [address] [facility] [id number], [place] [address] Nov, Hypotestosteronism E34.9 [facility] [address] [facility] [id number] [place] [id number] Nov, Pure hypercholesterolemia E78.00 and Primary osteoarthritis, unspecified site M19.[address] [facility] [address] [id number], [place] [id number] Nov, [facility] [address] [facility] [id number], [place] [address] Nov, Tear of left glenoid labrum, subsequent encounter S43.432D [facility] [address] [id number], [place] [address] Nov, Hypotestosteronism E34.[address] [facility] [address] [id number], [place] [id number] Nov, [facility] [address] [id number], [place] [id number] Nov, [facility] [address] [id number], [place] [id number] Nov, Erectile dysfunction, unspecified erectile dysfunction type N52.[address] [facility] [address] [id number], [place] [id number] Nov, Erectile dysfunction, unspecified erectile dysfunction type N52.[address] [facility] [address] [id number] [place] [id number] Nov, Viral upper respiratory tract infection J06.9 and Erectile dysfunction, unspecified erectile dysfunction type N52.[address] [facility] [address] [id number] [place] [id number] Oct, [facility] [address] [id number] [place] [id number] Oct, [facility] [address] [id number] [place] [id number] Oct, Fall on same level due to nature of surface, initial encounter W18.39XA and Erectile dysfunction, unspecified erectile dysfunction type N52.9 [facility] [address] [place] [address] Sep, [facility] [address] [place] [id number] [place] [address] Sep, Tear of left rotator cuff, unspecified tear extent M75.102 and Primary osteoarthritis, 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 [place] [address] [place] [id number] [place] [address] Aug, Primary osteoarthritis, unspecified site M19.91 [facility] [address] [place] [id number] [place] [address]56[address] Jul, [facility] [address] [place] [id number] [place] [address]13[address] Jul, Primary osteoarthritis, unspecified site M19.91 [facility] [address] [id number] [place] [address]374[address] 6517 Jul, Lumbago with sciatica, right side M54.41 [facility] [address] [place] [address] 63341- 6913 Jul, Primary osteoarthritis, 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 and Injury of left rotator cuff, subsequent encounter S46.002D [facility] [address] [place] [address] 07308- 6055 Jul, [facility] [address] [place] [address] 96900- 8233 Jul, [facility] [address] [place] [id number] [place] [address] 63478- 6462 Jul, [facility] [address] [place] [address] 94152[address]394 Jul, Lumbago with sciatica, left side M54.42 ; Lumbago with sciatica, right side M54.41 ; Left shoulder pain, unspecified chronicity M25.512 and Essential hypertension I10 [place] [address] [place] [id number] [place] [address] 55960[address] Jun, Lumbago with sciatica, left side M54.42 ; Lumbago with sciatica, right side M54.41 ; Left shoulder pain, unspecified chronicity M25.512 ; Essential hypertension I10 ; Heart murmur previously undiagnosed R01.1 ; Overweight E66.3 ; Anxiety F41.9 and Chronic prescription opiate use Z79.891 [place] [address] [address] Jun, Primary osteoarthritis, unspecified site M19.91 [place] [address] [place] [place] [id number] [place] [address] 10840- 9517 Jun, [place] [address] [address] May, Primary osteoarthritis, unspecified site M19.91 [place] [address] [place] [place] [id number] [place] [address] 42549- 1240 May, Injury of left rotator cuff, subsequent encounter S46.002D [place] [address] [id number] [place] [address] 64505[address] 8710 May, [place] [address] [address] Apr, [place] [address] [place] [place] [id number] [place] [address] 22197- 8244 Apr, PVD (peripheral vascular disease) I73.9 ; Right leg claudication I73.9 ; Hyperlipidemia, unspecified hyperlipidemia type E78.5 ; Occlusion of femoropopliteal bypass graft, 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 and Essential hypertension I10 [place] [address] [place] [id number] [place] [address] 45792- 0063 Apr, Left shoulder pain, unspecified chronicity M25.512 [facility] [address] [place] [address] 02070- 4222 Mar, Left shoulder pain, unspecified chronicity M25.512 [facility] [address] [place] [address] 64935- 7036 Mar, [facility] [address] [id number] [place] [address] 39813- 4784 Mar, [facility] [id number] [place] [address] 06635- 1104 Mar, Dupuytren's contracture of hand M72.0 ; Essential hypertension I10 ; Pure hypercholesterolemia E78.00 ; Primary osteoarthritis, unspecified site M19.91 ; PVD (peripheral vascular disease) I73.9 and Moderate single current episode of major depressive disorder F32.1 [facility] [address] [place] [id number] Feb, Dental examination Z01.20 and Dental caries K02.9 [place] [address] [place] [id number] [place] [address] 70792- 0357 Feb, Primary osteoarthritis, unspecified site M19.91 [place] [address] [place] [id number] [place] [address] 93983- 6347 Feb, [place] [address] [place] [address] 98226- 4052 Feb, [place] [address] [place] [address] 48552- 3006 Nov, [place] [address] [place] [address] 68380- 9585 Nov, Dupuytren's contracture of hand M72.0 ; Pure hypercholesterolemia E78.00 ; Essential hypertension I10 ; PVD (peripheral vascular disease) I73.9 ; Primary osteoarthritis, unspecified site M19.91 and Rheumatoid arthritis, involving unspecified site, unspecified rheumatoid factor presence M06.9 [place] [address] [place] [id number] [place] [address] 03712- 2996 Nov, IMMUNIZATIONS No Known Immunizations SOCIAL HISTORY Never Assessed REASON FOR VISIT refill on tramadol PLAN OF CARE VITAL SIGNS MEDICATIONS Unknown Medications RESULTS No Results PROCEDURES No Known procedures INSTRUCTIONS MEDICATIONS ADMINISTERED No Known Medications MEDICAL (GENERAL) HISTORY Type Description Date Medical History dupuytren's contracture-hand bilateral Medical History hypertension Medical History hyperlipidemia Medical History Arthritis Medical History peripheral vascular disease Medical History rheumatoid arthritis Surgical History [facility] 05/2015 Surgical History dupuytren's contracture-bilateral hands Surgical History Artery bypass in right leg Surgical History Occipital bone surgery right side Surgical History surgery near right eye Surgical History [facility] Left shoulder replacement 01/13/2018 Hospitalization History Surgery(s) only Hospitalization History [facility] [place]- Cold Symptoms 03/03/2018
--- OUTSIDE RECORDS SUMMARY | 2018-12-22 13:56 | XMS REPORT ---
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 Name Role Phone SINDY LANDAVERDE Unavailable PROBLEMS Type Condition ICD9-CM Code LRO37-GD Code Onset Dates Condition Status SNOMED Code Problem Lumbago with sciatica, left side M54.42 Active 394359178 Problem Chronic prescription opiate use Z79.891 Active 561926818 Problem Lumbago with sciatica, right side M54.41 Active 664813748337547 Problem Claustrophobia F40.240 Active 37647389 Problem Essential hypertension I10 Active 58151851 Problem Hypogonadism in male E29.1 Active 30647884 Problem Tear of left rotator cuff, unspecified tear extent M75.102 Active 3968666 Problem Left shoulder pain, unspecified chronicity M25.512 Active 82378164 Problem Hypotestosteronism E34.9 Active 9265542766998 Problem Erectile dysfunction, unspecified erectile dysfunction type N52.9 Active 687005607 Problem Primary osteoarthritis, unspecified site M19.91 Active 623103875 Problem Dupuytren's contracture of hand M72.0 Active 024275564 Problem PVD (peripheral vascular disease) I73.9 Active 579667366 Problem Rheumatoid arthritis, involving unspecified site, unspecified rheumatoid factor presence M06.9 Active 47463034 Problem Right leg claudication I73.9 Active 598069098 Problem Hyperlipidemia, unspecified hyperlipidemia type E78.5 Active 57244503 Problem Pure hypercholesterolemia E78.00 Active 670358504 Problem Primary osteoarthritis, 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 Active 26537874 Problem Moderate single current episode of major depressive disorder F32.1 Active 06533535 Problem Anxiety F41.9 Active 06956831 ALLERGIES No Information ENCOUNTERS Encounter Location Date Diagnosis [address] [id number] [place] [id number] Mar, Hypotestosteronism E34.9 [facility] [address] [facility] [id number] [place] [address] Mar, Claustrophobia F40.[address] [facility] [address] [id number][place] [address] Mar, Hypotestosteronism E34.9 [facility] [address] [facility] [id number] [place] [address] Mar, Encounter for pre-operative laboratory testing Z01.[address] [facility] [address] [id number], [place] [address] Mar, Acute otitis externa of right ear, unspecified type H60.501 ; Hypotestosteronism E34.9 and Encounter for pre-operative laboratory testing Z01.[address] [facility] [address] [id number][place] [id number] Mar, [facility] [address] [id number], [place] [address] Mar, Hypogonadism in male E29.1 and Hypotestosteronism E34.[address] [facility] [address] [id number], [place] [address] Mar, Acute otitis externa of right ear, unspecified type H60.[address] [facility] [address] [id number], [place] [address] Mar, Hypotestosteronism E34.[address] [facility] [address] [id number], [place] [address] Feb, [facility] [address] [facility] [id number] LA[place] [address] Feb, PVD (peripheral vascular disease) I73.9 ; Pure hypercholesterolemia E78.00 and Primary osteoarthritis, unspecified site M19.[address] [facility] [address] [id number], [place] [id number] Feb, Hypotestosteronism E34.[address] [facility] [address] [id number] [place] [address] Feb, Upper respiratory infection, viral J06.9 [facility] [address] [id number] [place] [address] Feb, Hypotestosteronism E34.9 [facility] [address] [id number] [place] [id number] January, [facility] [address] [id number], [place] [address] January, Hypotestosteronism E34.9 [facility] [address] [facility] [address] [id number], [place] [id number] January, Hypotestosteronism E34.9 [facility] [address]00565100[place] [address] Dec, [facility] [address] [address] [facility] [address] [id number], [place] [address] Dec, Erectile dysfunction, unspecified erectile dysfunction type N52.9 [facility] [place] [address] [facility] [id number] LAKE[place] [address] Dec, [facility] [address]65100[place] [address] Dec, Pre-operative cardiovascular examination Z01.810 ; PVD (peripheral vascular disease) I73.9 ; Anxiety F41.9 ; Rheumatoid arthritis, involving unspecified site, unspecified rheumatoid factor presence M06.9 ; Essential hypertension I10 ; Hyperlipidemia, unspecified hyperlipidemia type E78.5 and Hypotestosteronism E34.9 [facility] [address] [id number], [place] [id number] Dec, [facility] [address] [id number], [place] [id number] Dec, Erectile dysfunction, unspecified erectile dysfunction type N52.9 and Hypotestosteronism E34.9 [facility] [address] [id number] [place] [id number] Dec, Hypotestosteronism E34.9 [facility] [address] [facility] [id number] [place] [id number] Nov, [facility] [address] [facility] [id number] [place] [address] Nov, Hypotestosteronism E34.9 [facility] [address] [facility] [id number] [place] [address] Nov, Pure hypercholesterolemia E78.00 and Primary osteoarthritis, unspecified site M19.[address] [facility] [address] [id number], [place] 568[address]91 Nov, [facility] [address] [facility] [id number] [place] [address] Nov, Tear of left glenoid labrum, subsequent encounter S43.432D [facility] [address] [id number], [place] [address] Nov, Hypotestosteronism E34.[address] [facility] [address] [id number], [place] [address]64[address] Nov, [facility] [address] [id number], [place] [id number] Nov, [facility] [address] [id number], [place] [address] Nov, Erectile dysfunction, unspecified erectile dysfunction type N52.[address] [facility] [address] [id number], [place] [address] Nov, Erectile dysfunction, unspecified erectile dysfunction type N52.[address] [facility] [address] [id number] [place] [address] Nov, Viral upper respiratory tract infection J06.9 and Erectile dysfunction, unspecified erectile dysfunction type N52.[address] [facility] [address] [id number] [place] [address] Oct, [facility] [address] [id number] [place] [address] Oct, [facility] [address] [id number] [address] Oct, Fall on same level due to nature of surface, initial encounter W18.39XA and Erectile dysfunction, unspecified erectile dysfunction type N52.9 [facility] [address] [place] [address] 06291- 9095 Sep, [facility] [address] [place] [id number] [place] [address] 25449- 8039 Sep, Tear of left rotator cuff, unspecified tear extent M75.102 and Primary osteoarthritis, 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 [place] [address] [place] [id number] [place] [address] 06466- 7583 Aug, Primary osteoarthritis, unspecified site M19.91 [facility] [address] [place] [id number] [place] [address] 78112- 7523 Jul, [facility] [address] [place] [id number] [place] [address] 52239- 5323 Jul, Primary osteoarthritis, unspecified site M19.91 [facility] [address] [place] [id number] [place] [address] 24305- 1911 Jul, Lumbago with sciatica, right side M54.41 [facility] [address] [place] [address] 08049- 4014 Jul, Primary osteoarthritis, 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 and Injury of left rotator cuff, subsequent encounter S46.002D [facility] [address] [place] [address] 28698- 4937 Jul, [facility] [address] [place] [address] 05126- 8656 Jul, [facility] [address] [place] [id number] [place] [address] 51843- 9535 Jul, [facility] [address] [place] [address] 19750- 1450 Jul, Lumbago with sciatica, left side M54.42 ; Lumbago with sciatica, right side M54.41 ; Left shoulder pain, unspecified chronicity M25.512 and Essential hypertension I10 [place] [address] [place] [id number] [place] [address] 55730- 0562 Jun, Lumbago with sciatica, left side M54.42 ; Lumbago with sciatica, right side M54.41 ; Left shoulder pain, unspecified chronicity M25.512 ; Essential hypertension I10 ; Heart murmur previously undiagnosed R01.1 ; Overweight E66.3 ; Anxiety F41.9 and Chronic prescription opiate use Z79.891 [place] [address] [address]73- [address]59 Jun, Primary osteoarthritis, unspecified site M19.91 [place] [address] [place] [id number] [place] [address] 50457- 0005 Jun, [place] [address] 33167- 1375 May, Primary osteoarthritis, unspecified site M19.91 [place] [address] [place] [id number] [place] [address] 42712- 5443 May, Injury of left rotator cuff, subsequent encounter S46.002D [place] [address] [place] [id number] [place] [address] 27733- 3035 May, [place] [address] 69716- 2006 Apr, [place] [address] [place] [id number] [place] [address] 07598- 2692 Apr, PVD (peripheral vascular disease) I73.9 ; Right leg claudication I73.9 ; Hyperlipidemia, unspecified hyperlipidemia type E78.5 ; Occlusion of femoropopliteal bypass graft, 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 and Essential hypertension I10 [place] [address] [place] [id number] [place] [address] 38861- 7281 Apr, Left shoulder pain, unspecified chronicity M25.512 [facility] [address] [place] [address] 81535- 3108 Mar, Left shoulder pain, unspecified chronicity M25.512 [facility] [address] [place] [address] 38558- 5828 Mar, [facility] [address] [place] [id number] [place] [address] 47936- 6285 Mar, [facility] [address] [place] [id number] [place] [address] 96704- 2049 Mar, Dupuytren's contracture of hand M72.0 ; Essential hypertension I10 ; Pure hypercholesterolemia E78.00 ; Primary osteoarthritis, unspecified site M19.91 ; PVD (peripheral vascular disease) I73.9 and Moderate single current episode of major depressive disorder F32.1 [facility] [address] [place] [address] [id number] Feb, Dental examination Z01.20 and Dental caries K02.9 [place] [address] [place] [id number] [place] [address] 32001- 0005 Feb, Primary osteoarthritis, unspecified site M19.91 [place] [address] [place] [id number] [place] [address] 69600- 5583 Feb, [place] [address] [place] [address] 46417- 3928 Feb, [place] [address] [place] [address] 71015- 5964 Nov, [place] [address] [place] [address] 44680- 2623 Nov, Dupuytren's contracture of hand M72.0 ; Pure hypercholesterolemia E78.00 ; Essential hypertension I10 ; PVD (peripheral vascular disease) I73.9 ; Primary osteoarthritis, unspecified site M19.91 and Rheumatoid arthritis, involving unspecified site, unspecified rheumatoid factor presence M06.9 [place] [address] [place] [id number] [place] [address] 35670- 2546 Nov, IMMUNIZATIONS Vaccine Route Administration Date Status TESTOSTERONE (PT'S OWN) IM Intramuscular January 09, 2018 Administered SOCIAL HISTORY Never Assessed REASON FOR VISIT Testosterone injection PLAN OF CARE VITAL SIGNS MEDICATIONS Unknown Medications RESULTS No Results PROCEDURES Procedure Date Ordered Result Body Site TESTOSTERONE (PT'S OWN) January 09, 2018 THER/PROPH/DIAG INJ, SC/IM January 09, 2018 INSTRUCTIONS MEDICATIONS ADMINISTERED No Known Medications [...] History surgery near right eye Surgical History [place] Left shoulder replacement 01/13/2018 Hospitalization History Surgery(s) only Hospitalization History [facility] [place]- Cold Symptoms 03/03/2018
--- OUTSIDE RECORDS SUMMARY | 2018-12-22 13:57 | XMS REPORT ---
Author Author SINDY LANDAVERDE Organization [facility] Address [address] [place] [address] Care Team Providers Care Patient Account Liaison Name Role Phone SINDY LANDAVERDE Unavailable PROBLEMS Type Condition ICD9-CM Code RHL26-SH Code Onset Dates Condition Status SNOMED Code Problem Lumbago with sciatica, left side M54.42 Active 171607640 Problem Chronic prescription opiate use Z79.891 Active 498283752 Problem Lumbago with sciatica, right side M54.41 Active 397218150742294 Problem Claustrophobia F40.240 Active 33255702 Problem Essential hypertension I10 Active 80204689 Problem Hypogonadism in male E29.1 Active 99460017 Problem Tear of left rotator cuff, unspecified tear extent M75.102 Active 8941662 Problem Left shoulder pain, unspecified chronicity M25.512 Active 92132464 Problem Hypotestosteronism E34.9 Active 2840117538762 Problem Erectile dysfunction, unspecified erectile dysfunction type N52.9 Active 374561009 Problem Primary osteoarthritis, unspecified site M19.91 Active 420187671 Problem Dupuytren's contracture of hand M72.0 Active 626716453 Problem PVD (peripheral vascular disease) I73.9 Active 793167271 Problem Rheumatoid arthritis, involving unspecified site, unspecified rheumatoid factor presence M06.9 Active 63317612 Problem Right leg claudication I73.9 Active 752192055 Problem Hyperlipidemia, unspecified hyperlipidemia type E78.5 Active 78652582 Problem Pure hypercholesterolemia E78.00 Active 584979547 Problem Primary osteoarthritis, 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 Active 75065958 Problem Moderate single current episode of major depressive disorder F32.1 Active 00951612 Problem Anxiety F41.9 Active 52050753 ALLERGIES No Information ENCOUNTERS Encounter Location Date Diagnosis [address] [id number] [place] [id number] Mar, Hypotestosteronism E34.9 [facility] [address] [facility] [id number] [place] [address] Mar, Claustrophobia F40.[address] [facility] [address] [id number][place] [address] Mar, Hypotestosteronism E34.9 [facility] [address] [facility] [id number], [place] [address]44[address] Mar, Encounter for pre-operative laboratory testing Z01.[address] [facility] [address] [id number], [place] [address] Mar, Acute otitis externa of right ear, unspecified type H60.501 ; Hypotestosteronism E34.9 and Encounter for pre-operative laboratory testing Z01.[address] [facility] [address] [id number], [place] [address] Mar, [facility] [address] [id number], [place] 217356058 Mar, Hypogonadism in male E29.1 and Hypotestosteronism E34.[address] [facility] [address] [id number][place] 422926[place] Mar, Acute otitis externa of right ear, unspecified type H60.[address] [facility] [address] [id number][place] 420857425 Mar, Hypotestosteronism E34.[address] [facility] [address] [id number], [place] [id number] Feb, [facility] [address] [facility] [id number] [address] Feb, PVD (peripheral vascular disease) I73.9 ; Pure hypercholesterolemia E78.00 and Primary osteoarthritis, unspecified site M19.[address] [facility] [address] [id number], [place] 900[address] Feb, Hypotestosteronism E34.[address] [facility] [address] [id number] [place] [address] Feb, Upper respiratory infection, viral J06.9 [facility] [address] [id number] [place] [address] Feb, Hypotestosteronism E34.9 [facility] [address] [id number], [place] [address]83[address] January, [facility] [address] [id number], [place] [address] January, Hypotestosteronism E34.9 [facility] [address] [facility] [address] [id number], [place] [address] January, Hypotestosteronism E34.9 [facility] [address]00565100[place] [address] Dec, [facility] [address] [facility] [address] [id number], [place] [address]96328[address] Dec, Erectile dysfunction, unspecified erectile dysfunction type N52.9 [facility] [place] [address] [facility] [id number], [place] [address] Dec, [facility] [address]00565100[place] [address] Dec, Pre-operative cardiovascular examination Z01.810 ; PVD (peripheral vascular disease) I73.9 ; Anxiety F41.9 ; Rheumatoid arthritis, involving unspecified site, unspecified rheumatoid factor presence M06.9 ; Essential hypertension I10 ; Hyperlipidemia, unspecified hyperlipidemia type E78.5 and Hypotestosteronism E34.9 [facility] [address] [id number], [place] [id number] Dec, [facility] [address] [id number], [place] 12[address]358[address] Dec, Erectile dysfunction, unspecified erectile dysfunction type N52.9 and Hypotestosteronism E34.9 [facility] [address] [id number] [place] [address] Dec, Hypotestosteronism E34.9 [facility] [address] [facility] [id number] [place] [id number] Nov, [facility] [address] [facility] [id number], [place] [address]- [address] Nov, Hypotestosteronism E34.9 [facility] [address] [facility] [id number] [place] [address] Nov, Pure hypercholesterolemia E78.00 and Primary osteoarthritis, unspecified site M19.[address] [facility] [address] [id number][place] 36[address] Nov, [facility] [address] [facility] [id number], [place] 4667[place]- 7385 Nov, Tear of left glenoid labrum, subsequent encounter S43.432D [facility] [address] [id number], [place] 937279256 Nov, Hypotestosteronism E34.[address] [facility] [address] [id number], [place] 93408[address] Nov, [facility] [address] [id number], [place] 14[address] Nov, [facility] [address] [id number], [place] 968188[address] Nov, Erectile dysfunction, unspecified erectile dysfunction type N52.[address] [facility] [address] [id number], [place] 175988991 Nov, Erectile dysfunction, unspecified erectile dysfunction type N52.[address] [facility] [address] [id number] [place] [address] Nov, Viral upper respiratory tract infection J06.9 and Erectile dysfunction, unspecified erectile dysfunction type N52.[address] [facility] [address] [id number] [place] [address] Oct, [facility] [address] [id number] [place] [address] Oct, [facility] [address] [id number] [facility] [id number] Oct, Fall on same level due to nature of surface, initial encounter W18.39XA and Erectile dysfunction, unspecified erectile dysfunction type N52.9 [facility] [address] [place] [address] 14793- 4211 Sep, [facility] [address] [place] [id number] [place] [address] 48239- 4731 Sep, Tear of left rotator cuff, unspecified tear extent M75.102 and Primary osteoarthritis, 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 [place] [address] [place] [address] [place] [address] 25599- 4072 Aug, Primary osteoarthritis, unspecified site M19.91 [facility] [address] [place] [id number] [place] [address] 78143- 3480 Jul, [facility] [address] [place] [id number] [place] [address] 69348- 2601 Jul, Primary osteoarthritis, unspecified site M19.91 [facility] [address] [place] [id number] [place] [address] 51794- 7661 Jul, Lumbago with sciatica, right side M54.41 [facility] [address] [place] [address] 69381- 6415 Jul, Primary osteoarthritis, 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 and Injury of left rotator cuff, subsequent encounter S46.002D [facility] [address] [place] [address] 60096- 2438 Jul, [facility] [address] [place] [address] 04537- 6974 Jul, [facility] [address] [place] [id number] [place] [address] 38299- 1856 Jul, [facility] [address] [place] [address] 82508- 0934 Jul, Lumbago with sciatica, left side M54.42 ; Lumbago with sciatica, right side M54.41 ; Left shoulder pain, unspecified chronicity M25.512 and Essential hypertension I10 [place] [address] [place] [address] [place] [address] 10959- 2860 Jun, Lumbago with sciatica, left side M54.42 ; Lumbago with sciatica, right side M54.41 ; Left shoulder pain, unspecified chronicity M25.512 ; Essential hypertension I10 ; Heart murmur previously undiagnosed R01.1 ; Overweight E66.3 ; Anxiety F41.9 and Chronic prescription opiate use Z79.891 [place] [address] 51962- 9086 Jun, Primary osteoarthritis, unspecified site M19.91 [place] [address] [place] [id number] [place] [address] 11220- 2702 Jun, [place] [address] 26292- 0395 May, Primary osteoarthritis, unspecified site M19.91 [place] [address] [place] [id number] [place] [address] 11493- 9948 May, Injury of left rotator cuff, subsequent encounter S46.002D [place] [address] [place] [address] [place] [address] 15367- 5234 May, [place] [address] 85899- 2982 Apr, [place] [address] [place] [id number] [place] [address] 39551- 8662 Apr, PVD (peripheral vascular disease) I73.9 ; Right leg claudication I73.9 ; Hyperlipidemia, unspecified hyperlipidemia type E78.5 ; Occlusion of femoropopliteal bypass graft, 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 and Essential hypertension I10 [place] [address] [place] [id number] [place] [address] 16070- 3155 Apr, Left shoulder pain, unspecified chronicity M25.512 [facility] [address] [place] [address] 71208- 6755 Mar, Left shoulder pain, unspecified chronicity M25.512 [facility] [address] [place] [address] 49532- 2539 Mar, [facility] [address] [place] [id number] [place] [address] 43806- 8414 Mar, [facility] [address] [place] [id number] [place] [address] 35320- 4540 Mar, Dupuytren's contracture of hand M72.0 ; Essential hypertension I10 ; Pure hypercholesterolemia E78.00 ; Primary osteoarthritis, unspecified site M19.91 ; PVD (peripheral vascular disease) I73.9 and Moderate single current episode of major depressive disorder F32.1 [facility] [address] [place] [address] [id number] Feb, Dental examination Z01.20 and Dental caries K02.9 [place] [address] [place] [id number] [place] [address] 05972- 1620 Feb, Primary osteoarthritis, unspecified site M19.91 [place] [address] [place] [id number] [place] [address] 84971- 3895 Feb, [place] [address] [place] [address] 00070- 2199 Feb, [place] [address] [place] [address] 33887- 6916 Nov, [place] [address] [place] [address] 32004- 8701 Nov, Dupuytren's contracture of hand M72.0 ; Pure hypercholesterolemia E78.00 ; Essential hypertension I10 ; PVD (peripheral vascular disease) I73.9 ; Primary osteoarthritis, unspecified site M19.91 and Rheumatoid arthritis, involving unspecified site, unspecified rheumatoid factor presence M06.9 [place] [address] [place] [id number] [place] [address] 09078- 1946 Nov, IMMUNIZATIONS No Known Immunizations SOCIAL HISTORY [...] History surgery near right eye Surgical History [place] Left shoulder replacement 01/13/2018 Hospitalization History Surgery(s) only Hospitalization History [facility] [place]- Cold Symptoms 03/03/2018
--- OUTSIDE RECORDS SUMMARY | 2018-12-22 13:57 | XMS REPORT ---
Author Author SINDY LANDAVERDE Organization [facility] Address [address] [place] [address] Care Team Providers Care Therapist Respiratory Name Role Phone SINDY LANDAVERDE Unavailable PROBLEMS Type Condition ICD9-CM Code [id number] Code Onset Dates Condition Status SNOMED Code Problem Lumbago with sciatica, left side M54.42 Active 922638821 Problem Chronic prescription opiate use Z79.891 Active 018864566 Problem Lumbago with sciatica, right side M54.41 Active 622725527952188 Problem Claustrophobia F40.240 Active 90817546 Problem Essential hypertension I10 Active 16223253 Problem Hypogonadism in male E29.1 Active 90302370 Problem Tear of left rotator cuff, unspecified tear extent M75.102 Active 9799424 Problem Left shoulder pain, unspecified chronicity M25.512 Active 53619414 Problem Hypotestosteronism E34.9 Active 9341398639113 Problem Erectile dysfunction, unspecified erectile dysfunction type N52.9 Active 448851688 Problem Primary osteoarthritis, unspecified site M19.91 Active 792418254 Problem Dupuytren's contracture of hand M72.0 Active 864884636 Problem PVD (peripheral vascular disease) I73.9 Active 903078786 Problem Rheumatoid arthritis, involving unspecified site, unspecified rheumatoid factor presence M06.9 Active 99171925 Problem Right leg claudication I73.9 Active 457810764 Problem Hyperlipidemia, unspecified hyperlipidemia type E78.5 Active 35135334 Problem Pure hypercholesterolemia E78.00 Active 208312047 Problem Primary osteoarthritis, 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[address] [facility] [address] [id number] [place] [id number] Mar, Acute otitis externa of right ear, unspecified type H60.501 ; Hypotestosteronism E34.9 and Encounter for pre-operative laboratory testing Z01.[address] [facility] [address] [id number] [place] [id number] Mar, [facility] [address] [id number] [place] [address] Mar, Hypogonadism in male E29.1 and Hypotestosteronism E34.[address] [facility] [address] [id number] [place] [id number] Mar, Acute otitis externa of right ear, unspecified type H60.[address] [facility] [address] [id number] [place] [address] Mar, Hypotestosteronism E34.9 [facility] [address] [facility] [address] [id number] [place] [id number] Feb, [facility] [address] [facility] [id number] [id number] Feb, PVD (peripheral vascular disease) I73.9 ; Pure hypercholesterolemia E78.00 and Primary osteoarthritis, unspecified site M19.[address] [facility] [address] [id number] [place] [id number] Feb, Hypotestosteronism E34.[address] [facility] [address] [id number] [place] [id number] Feb, Upper respiratory infection, viral J06.[address] [facility] [address] [id number] [place] [id number] Feb, Hypotestosteronism E34.9 [facility] [address] [facility] [id number][place] [id number] January, [facility] [address] [id number] [place] [id number] January, Hypotestosteronism E34.9 [facility] [address] [facility] [address] [id number] [place] [address] January, Hypotestosteronism E34.9 [facility] [address] [facility] [id number][place] [id number] Dec, [facility] [address] [facility] [address] [id number] [place] [id number] Dec, Erectile dysfunction, unspecified erectile dysfunction type N52.9 [facility] [address] [place] [id number] [id number] Dec, [facility] [address]65[place] [id number] Dec, Pre-operative cardiovascular examination Z01.810 ; PVD (peripheral vascular disease) I73.9 ; Anxiety F41.9 ; Rheumatoid arthritis, involving unspecified site, unspecified rheumatoid factor presence M06.9 ; Essential hypertension I10 ; Hyperlipidemia, unspecified hyperlipidemia type E78.5 and Hypotestosteronism E34.9 [facility] [address] [id number] [place] [address] Dec, [facility] [address] [id number] [place] [id number] Dec, Erectile dysfunction, unspecified erectile dysfunction type N52.9 and Hypotestosteronism E34.9 [facility] [address] [id number] [place] [id number] Dec, Hypotestosteronism E34.9 [facility] [address] [facility] [id number][place] [id number] Nov, [facility] [address] [place] [id number] [address] Nov, Hypotestosteronism E34.9 [facility] [address] [facility] [id number][place] [address] Nov, Pure hypercholesterolemia E78.00 and Primary osteoarthritis, unspecified site M19.[address] [facility] [address] [id number] [place] [address] Nov, [facility] [address] [facility] [id number] [address] Nov, Tear of left glenoid labrum, subsequent encounter S43.432D [facility] [address] [id number] [place] [address] Nov, Hypotestosteronism E34.9 [facility] [address] [id number] [place] [address] Nov, [facility] [address] [id number] [place] [id number] Nov, [facility] [address] [id number] [place] [address] Nov, Erectile dysfunction, unspecified erectile dysfunction type N52.[address] [facility] [address] [id number] [place] [address] Nov, Erectile dysfunction, unspecified erectile dysfunction type N52.9 [facility] [address] [id number] [place] [address] Nov, Viral upper respiratory tract infection J06.9 and Erectile dysfunction, unspecified erectile dysfunction type N52.9 [facility] [address] [id number] [place] [id number] Oct, [facility] [address] [id number] [place] [address] Oct, [facility] [address] [id number] [place] [address] Oct, Fall on same level due to nature of surface, initial encounter W18.39XA and Erectile dysfunction, unspecified erectile dysfunction type N52.9 [facility] [address] [address] Sep, [place] [address] [address] Sep, Tear of left rotator cuff, unspecified tear extent M75.102 and Primary osteoarthritis, 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 [place] [address] [address] Aug, Primary osteoarthritis, unspecified site M19.91 [place] [address] [address] Jul, [place] [address] [address] Jul, Primary osteoarthritis, unspecified site M19.91 [place] [address] [address] Jul, Lumbago with sciatica, right side M54.41 [place] [address] [address] Jul, Primary osteoarthritis, 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 and Injury of left rotator cuff, subsequent encounter S46.002D [place] [address] [address] Jul, [place] [address] [place] [id number] [place] [address] Jul, [place] [address] [place] [id number] [place] [address] Jul, [place] [address] [address] Jul, Lumbago with sciatica, left side M54.42 ; Lumbago with sciatica, right side M54.41 ; Left shoulder pain, unspecified chronicity M25.512 and Essential hypertension I10 [place] [address] [place] [id number] [place] [address] Jun, Lumbago with sciatica, left side M54.42 ; Lumbago with sciatica, right side M54.41 ; Left shoulder pain, unspecified chronicity M25.512 ; Essential hypertension I10 ; Heart murmur previously undiagnosed R01.1 ; Overweight E66.3 ; Anxiety F41.9 and Chronic prescription opiate use Z79.891 [place] [address] [address] Jun, Primary osteoarthritis, unspecified site M19.91 [place] [address] [address] Jun, [place] [address] [place] [id number] [place] [address] May, Primary osteoarthritis, unspecified site M19.91 [place] [address] [address] May, Injury of left rotator cuff, subsequent encounter S46.002D [place] [address] [place] [id number] [place] [address] May, [place] [address] [place] [id number] [place] [address] Apr, [place] [address] [place] [id number] [place] [address] Apr, PVD (peripheral vascular disease) I73.9 ; Right leg claudication I73.9 ; Hyperlipidemia, unspecified hyperlipidemia type E78.5 ; Occlusion of femoropopliteal bypass graft, 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 and Essential hypertension I10 [place] [address] [address] Apr, Left shoulder pain, unspecified chronicity M25.512 [place] [address] [place] [id number] [place] [address] Mar, Left shoulder pain, unspecified chronicity M25.512 [facility] [address] [address] Mar, [facility] [address] [place] [id number] [place] [address] Mar, [facility] [address] [place] [address] Mar, Dupuytren's contracture of hand M72.0 ; Essential hypertension I10 ; Pure hypercholesterolemia E78.00 ; Primary osteoarthritis, unspecified site M19.91 ; PVD (peripheral vascular disease) I73.9 and Moderate single current episode of major depressive disorder F32.1 [facility] [address] [place] [id number] Feb, Dental examination Z01.20 and Dental caries K02.9 [place] [address] [place] [id number] [place] [address] Feb, Primary osteoarthritis, unspecified site M19.91 [facility] [address] [place] [id number] [place] [address] Feb, [place] [address] [place] [id number] [place] [address] Feb, [facility] [address] [place] [address] Nov, [facility] [address] [place] [id number] [place] [address] Nov, Dupuytren's contracture of hand M72.0 ; Pure hypercholesterolemia E78.00 ; Essential hypertension I10 ; PVD (peripheral vascular disease) I73.9 ; Primary osteoarthritis, unspecified site M19.91 and Rheumatoid arthritis, involving unspecified site, unspecified rheumatoid factor presence M06.9 [facility] [address] [address] Nov, IMMUNIZATIONS No Known Immunizations SOCIAL HISTORY Never Assessed REASON FOR VISIT Medication question PLAN OF CARE VITAL SIGNS MEDICATIONS Medication Instructions Dosage Frequency Start Date End Date Duration Status Testosterone Cypionate 100 MG/ML Intramuscular every 2 weeks 1 ml Dec 28 days Active RESULTS No Results PROCEDURES No Known procedures INSTRUCTIONS MEDICATIONS ADMINISTERED No Known Medications MEDICAL (GENERAL) HISTORY Type Description Date Medical History dupuytren's contracture-hand bilateral Medical History hypertension Medical History hyperlipidemia Medical History Arthritis Medical History peripheral vascular disease Medical History rheumatoid arthritis Surgical History cervical fusion C3-C7 -[facility] 05/2015 Surgical History dupuytren's contracture-bilateral hands Surgical History Artery bypass in right leg Surgical History Occipital bone surgery right side Surgical History surgery near right eye Surgical History [place] Left shoulder replacement 01/13/2018 Hospitalization History Surgery(s) only Hospitalization History [facility] [place]- Cold Symptoms 03/03/2018
--- OUTSIDE RECORDS SUMMARY | 2018-12-22 13:57 | XMS REPORT ---
Author Author SINDY LANDAVERDE Organization [facility] [place] Address [address] [place] [address] Care Team Providers Care Cushion Mat Maker Name Role Phone SINDY LANDAVERDE Unavailable PROBLEMS Type Condition ICD9-CM Code RAP87-MD Code Onset Dates Condition Status SNOMED Code Problem Lumbago with sciatica, left side M54.42 Active 531916234 Problem Chronic prescription opiate use Z79.891 Active 294826313 Problem Lumbago with sciatica, right side M54.41 Active 010633215514945 Problem Claustrophobia F40.240 Active 92684573 Problem Essential hypertension I10 Active 83375966 Problem Hypogonadism in male E29.1 Active 54457827 Problem Tear of left rotator cuff, unspecified tear extent M75.102 Active 2649093 Problem Left shoulder pain, unspecified chronicity M25.512 Active 87488215 Problem Hypotestosteronism E34.9 Active 8808042746610 Problem Erectile dysfunction, unspecified erectile dysfunction type N52.9 Active 395227292 Problem Primary osteoarthritis, unspecified site M19.91 Active 693165711 Problem Dupuytren's contracture of hand M72.0 Active 847072319 Problem PVD (peripheral vascular disease) I73.9 Active 531806291 Problem Rheumatoid arthritis, involving unspecified site, unspecified rheumatoid factor presence M06.9 Active 72953588 Problem Right leg claudication I73.9 Active 391222371 Problem Hyperlipidemia, unspecified hyperlipidemia type E78.5 Active 08240199 Problem Pure hypercholesterolemia E78.00 Active 820941681 Problem Primary osteoarthritis, 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 Active 23769469 Problem Moderate single current episode of major depressive disorder F32.1 Active 39028753 Problem Anxiety F41.9 Active 19638179 ALLERGIES No Information ENCOUNTERS Encounter Location Date Diagnosis [facility] [address] [id number] [id number] Mar, Claustrophobia F40.[address] [facility] [address] [id number] [place] [id number] Mar, Hypotestosteronism E34.9 [facility] [address] [facility] [id number] [place] [address] Mar, Encounter for pre-operative laboratory testing Z01.[address] [facility] [address] [id number] [place] [id number] Mar, Acute otitis externa of right ear, unspecified type H60.501 ; Hypotestosteronism E34.9 and Encounter for pre-operative laboratory testing Z01.[address] [facility] [address] [id number] [place] [id number] Mar, [facility] [address] [id number] [place] [id number] Mar, Hypogonadism in male E29.1 and Hypotestosteronism E34.[address] [facility] [address] [id number] [place] [id number] Mar, Acute otitis externa of right ear, unspecified type H60.[address] [facility] [address] [id number] [place] [id number] Mar, Hypotestosteronism E34.9 [facility] [address] [facility] [address] [address] [id number] [place] [id number] Feb, [facility] [address] [facility] [facility] [id number][place] [id number] Feb, PVD (peripheral vascular disease) I73.9 ; Pure hypercholesterolemia E78.00 and Primary osteoarthritis, unspecified site M19.[address] [facility] [address] [id number] [place]UL[place] [id number] Feb, Hypotestosteronism E34.[address] [facility] [address] [id number] [place] [id number] Feb, Upper respiratory infection, viral J06.[address] [facility] [address] [id number] [place] [id number] Feb, Hypotestosteronism E34.9 [facility] [address] [facility] [facility] [id number][place] [id number] January, [facility] [address] [id number] [place] [id number] January, Hypotestosteronism E34.9 [facility] [address] [facility] [id number] [place] [id number] January, Hypotestosteronism E34.9 [facility] [place] [address] [facility] [facility] [id number][place] [id number] Dec, [facility] [address] [facility] [id number] [place] [id number] Dec, Erectile dysfunction, unspecified erectile dysfunction type N52.9 [facility] [address] [id number] [id number] Dec, [facility] [address] [id number] Dec, Pre-operative cardiovascular examination Z01.810 ; PVD (peripheral vascular disease) I73.9 ; Anxiety F41.9 ; Rheumatoid arthritis, involving unspecified site, unspecified rheumatoid factor presence M06.9 ; Essential hypertension I10 ; Hyperlipidemia, unspecified hyperlipidemia type E78.5 and Hypotestosteronism E34.9 [facility] [address] [id number] [place] [id number] Dec, [facility] [address] [id number] [place] [id number] Dec, Erectile dysfunction, unspecified erectile dysfunction type N52.9 and Hypotestosteronism E34.9 [facility] [address] [id number] [place] [id number] Dec, Hypotestosteronism E34.9 [facility] [address] [facility] [id number][place] [id number] Nov, [facility] [address] [place] [id number] [address] Nov, Hypotestosteronism E34.9 [facility] [address] [facility] [id number][place] [id number] Nov, Pure hypercholesterolemia E78.00 and Primary osteoarthritis, unspecified site M19.[address] [facility] [address] [id number] [place] [id number] Nov, [facility] [address] [facility] [id number], [place] [address] Nov, Tear of left glenoid labrum, subsequent encounter S43.432D [facility] [address] [id number] [place] [address] Nov, Hypotestosteronism E34.9 [facility] [address] [id number] [place] [id number] Nov, [facility] [address] [id number] [place] [id number] Nov, [facility] [address] [id number] [place], [place] [id number] Nov, Erectile dysfunction, unspecified erectile dysfunction type N52.[address] [facility] [address] [id number] [place] [id number] Nov, Erectile dysfunction, unspecified erectile dysfunction type N52.9 [facility] [address] [id number] [place] [id number] Nov, Viral upper respiratory tract infection J06.9 and Erectile dysfunction, unspecified erectile dysfunction type N52.9 [facility] [address] [id number] [place] [id number] Oct, [facility] [address] [id number] [place] [id number] Oct, [facility] [address] [id number] [place] [id number] Oct, Fall on same level due to nature of surface, initial encounter W18.39XA and Erectile dysfunction, unspecified erectile dysfunction type N52.9 [facility] [place] [address] [address] Sep, [place] [address] [address] Sep, Tear of left rotator cuff, unspecified tear extent M75.102 and Primary osteoarthritis, 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 [place] [address] [address] Aug, Primary osteoarthritis, unspecified site M19.91 [place] [address] [address] Jul, [place] [address] [address] Jul, Primary osteoarthritis, unspecified site M19.91 [place] [address] [address] Jul, Lumbago with sciatica, right side M54.41 [place] [address] [address] Jul, Primary osteoarthritis, 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 and Injury of left rotator cuff, subsequent encounter S46.002D [place] [address] [address] Jul, [place] [address] [place] [id number] [place] [address] Jul, [place] [address] [place] [id number] [place] [address] Jul, [place] [address] [address] Jul, Lumbago with sciatica, left side M54.42 ; Lumbago with sciatica, right side M54.41 ; Left shoulder pain, unspecified chronicity M25.512 and Essential hypertension I10 [place] [address] [place] [id number] [place] [address] Jun, Lumbago with sciatica, left side M54.42 ; Lumbago with sciatica, right side M54.41 ; Left shoulder pain, unspecified chronicity M25.512 ; Essential hypertension I10 ; Heart murmur previously undiagnosed R01.1 ; Overweight E66.3 ; Anxiety F41.9 and Chronic prescription opiate use Z79.891 [place] [address] [address] Jun, Primary osteoarthritis, unspecified site M19.91 [place] [address] [address] Jun, [place] [address] [place] [id number] [place] [address] May, Primary osteoarthritis, unspecified site M19.91 [place] [address] [address] May, Injury of left rotator cuff, subsequent encounter S46.002D [place] [address] [place] [id number] [place] [address] May, [place] [address] [place] [id number] [place] [address] Apr, [place] [address] [place] [id number] [place] [address] Apr, PVD (peripheral vascular disease) I73.9 ; Right leg claudication I73.9 ; Hyperlipidemia, unspecified hyperlipidemia type E78.5 ; Occlusion of femoropopliteal bypass graft, 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 and Essential hypertension I10 [place] [address] [address] Apr, Left shoulder pain, unspecified chronicity M25.512 [place] [address] [place] [id number] [place] [address] Mar, Left shoulder pain, unspecified chronicity M25.512 [facility] [place] [address]00565100[place], [place] [address] Mar, [facility] [place] [address] [place] [id number] [place] [address] Mar, [facility] [place] [address] [place] [address] Mar, Dupuytren's contracture of hand M72.0 ; Essential hypertension I10 ; Pure hypercholesterolemia E78.00 ; Primary osteoarthritis, unspecified site M19.91 ; PVD (peripheral vascular disease) I73.9 and Moderate single current episode of major depressive disorder F32.1 [facility] [address] [place] [id number] Feb, Dental examination Z01.20 and Dental caries K02.9 [facility] [place] [address] [place] [id number] [place] [address] Feb, Primary osteoarthritis, unspecified site M19.91 [facility] [place] [address] [place] [address] Feb, [facility] [place] [address] [place] [id number] [place] [address]- [address] Feb, [facility] [place] [address] [place] [address]- [address] Nov, [facility] [place] [address] [place] [id number] [place] [address]- [address] Nov, Dupuytren's contracture of hand M72.0 ; Pure hypercholesterolemia E78.00 ; Essential hypertension I10 ; PVD (peripheral vascular disease) I73.9 ; Primary osteoarthritis, unspecified site M19.91 and Rheumatoid arthritis, involving unspecified site, unspecified rheumatoid factor presence M06.9 [facility] [place] [address], [place] [address] Nov, IMMUNIZATIONS Vaccine Route Administration Date Status TESTOSTERONE (PT'S OWN) IM Intramuscular December 26, 2017 Administered SOCIAL HISTORY Never Assessed REASON FOR VISIT Injection-testosterone---MAN[facility] PLAN OF CARE VITAL SIGNS MEDICATIONS Unknown Medications RESULTS No Results PROCEDURES Procedure Date Ordered Result Body Site TESTOSTERONE (PT'S OWN) December 26, 2017 THER/PROPH/DIAG INJ, SC/IM December 26, 2017 INSTRUCTIONS MEDICATIONS ADMINISTERED No Known Medications MEDICAL (GENERAL) HISTORY Type Description Date Medical History dupuytren's contracture-hand bilateral Medical History hypertension Medical History hyperlipidemia Medical History Arthritis Medical History peripheral vascular disease Medical History rheumatoid arthritis Surgical History cervical fusion C3-C7 -[facility] 05/2015 Surgical History dupuytren's contracture-bilateral hands Surgical History Artery bypass in right leg Surgical History Occipital bone surgery right side Surgical History surgery near right eye Surgical History [place] Left shoulder replacement 01/13/2018 Hospitalization History Surgery(s) only Hospitalization History [facility]- Cold Symptoms 03/03/2018
--- OUTSIDE RECORDS SUMMARY | 2018-12-22 13:58 | XMS REPORT ---
Author Author SINDY LANDAVERDE Organization [facility] Address [address] [place] [address] Care Team Providers Care Manager Category Name Role Phone SINDY LANDAVERDE Unavailable PROBLEMS Type Condition ICD9-CM Code [id number] Code Onset Dates Condition Status SNOMED Code Problem Lumbago with sciatica, left side M54.42 Active 631788753 Problem Chronic prescription opiate use Z79.891 Active 023701862 Problem Lumbago with sciatica, right side M54.41 Active 730835605801183 Problem Claustrophobia F40.240 Active 90985231 Problem Essential hypertension I10 Active 28456183 Problem Hypogonadism in male E29.1 Active 00005618 Problem Tear of left rotator cuff, unspecified tear extent M75.102 Active 7160292 Problem Left shoulder pain, unspecified chronicity M25.512 Active 52184071 Problem Hypotestosteronism E34.9 Active 9593061759879 Problem Erectile dysfunction, unspecified erectile dysfunction type N52.9 Active 783911489 Problem Primary osteoarthritis, unspecified site M19.91 Active 320707556 Problem Dupuytren's contracture of hand M72.0 Active 372925668 Problem PVD (peripheral vascular disease) I73.9 Active 949547366 Problem Rheumatoid arthritis, involving unspecified site, unspecified rheumatoid factor presence M06.9 Active 57001511 Problem Right leg claudication I73.9 Active 226154505 Problem Hyperlipidemia, unspecified hyperlipidemia type E78.5 Active 54453794 Problem Pure hypercholesterolemia E78.00 Active 670836035 Problem Primary osteoarthritis, 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 Active 93266943 Problem Moderate single current episode of major depressive disorder F32.1 Active 95956709 Problem Anxiety F41.9 Active 03282141 ALLERGIES No Information ENCOUNTERS Encounter Location Date Diagnosis [facility] [address] [id number] [place] [id number] Mar, Claustrophobia F40.[address] [facility] [address] [id number] [id number] Mar, Hypotestosteronism E34.9 [facility] [address] [facility] [id number] [place] [address] Mar, Encounter for pre-operative laboratory testing Z01.[address] [facility] [address] [id number][place] [id number] Mar, Acute otitis externa of right ear, unspecified type H60.501 ; Hypotestosteronism E34.9 and Encounter for pre-operative laboratory testing Z01.[address] [facility] [address] [id number][place] [id number] Mar, [facility] [address] [id number][place] [id number] Mar, Hypogonadism in male E29.1 and Hypotestosteronism E34.[address] [facility] [address] [id number][place] [id number] Mar, Acute otitis externa of right ear, unspecified type H60.[address] [facility] [address] [id number][place] [id number] Mar, Hypotestosteronism E34.9 [facility] [address] [facility] [address] [id number][place] [id number] Feb, [facility] [address] [facility] [id number] [place] [id number] Feb, PVD (peripheral vascular disease) I73.9 ; Pure hypercholesterolemia E78.00 and Primary osteoarthritis, unspecified site M19.[address] [facility] [address] [id number][place] [id number] Feb, Hypotestosteronism E34.[address] [facility] [address] [id number][place] [id number] Feb, Upper respiratory infection, viral J06.[address] [facility] [address] [id number] [place] [id number] Feb, Hypotestosteronism E34.9 [facility] [address] [facility] [id number] [place] [id number] January, [facility] [address] [id number][place] [id number] January, Hypotestosteronism E34.9 [facility] [address] [facility] [address] [id number][place] [id number] January, Hypotestosteronism E34.9 [facility] [address] [facility] [id number] [place] [id number] Dec, [facility] [address] [facility] [address] [id number][place] [id number] Dec, Erectile dysfunction, unspecified erectile dysfunction type N52.9 [facility] [address] [place] [place] [id number] [place] [id number] Dec, [facility] [address]00565100[address] [place] [address] Dec, Pre-operative cardiovascular examination Z01.810 ; PVD (peripheral vascular disease) I73.9 ; Anxiety F41.9 ; Rheumatoid arthritis, involving unspecified site, unspecified rheumatoid factor presence M06.9 ; Essential hypertension I10 ; Hyperlipidemia, unspecified hyperlipidemia type E78.5 and Hypotestosteronism E34.9 [facility] [address] [id number][place] [id number] Dec, [facility] [address] [id number], [place] [id number] Dec, Erectile dysfunction, unspecified erectile dysfunction type N52.9 and Hypotestosteronism E34.9 [facility] [address] [id number], [place] [id number] Dec, Hypotestosteronism E34.9 [facility] [address] [facility] [id number] [place] [id number] Nov, [facility] [address] [place] [id number] [place] [address] Nov, Hypotestosteronism E34.9 [facility] [address] [facility] [id number] [place] [id number] Nov, Pure hypercholesterolemia E78.00 and Primary osteoarthritis, unspecified site M19.[address] [facility] [address] [id number][place] [id number] Nov, [facility] [address] [facility] [id number][place] [address]70[address] Nov, Tear of left glenoid labrum, subsequent encounter S43.432D [facility] [address] [id number][place] [id number] Nov, Hypotestosteronism E34.9 [facility] [address] [id number][place] [id number] Nov, [facility] [address] [id number][place] [id number] Nov, [facility] [address] [id number], [place] [id number] Nov, Erectile dysfunction, unspecified erectile dysfunction type N52.[address] [facility] [address] [id number][place] [id number] Nov, Erectile dysfunction, unspecified erectile dysfunction type N52.9 [facility] [address] [id number], [place] [id number] Nov, Viral upper respiratory tract infection J06.9 and Erectile dysfunction, unspecified erectile dysfunction type N52.9 [facility] [address] [id number], [place] [id number] Oct, [facility] [address] [id number][place] [id number] Oct, [facility] [address] [id number], [place] [id number] Oct, Fall on same level due to nature of surface, initial encounter W18.39XA and Erectile dysfunction, unspecified erectile dysfunction type N52.9 [facility] [address] [address] Sep, [place] [address] [address] Sep, Tear of left rotator cuff, unspecified tear extent M75.102 and Primary osteoarthritis, 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 [place] [address] [address] Aug, Primary osteoarthritis, unspecified site M19.91 [place] [address] [address] Jul, [place] [address] [address] Jul, Primary osteoarthritis, unspecified site M19.91 [place] [address] [address] Jul, Lumbago with sciatica, right side M54.41 [place] [address] [address] Jul, Primary osteoarthritis, 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 and Injury of left rotator cuff, subsequent encounter S46.002D [place] [address] [address] Jul, [place] [address] [place] [id number] [place] [address] Jul, [place] [address] [place] [id number] [place] [address] Jul, [place] [address] [address] Jul, Lumbago with sciatica, left side M54.42 ; Lumbago with sciatica, right side M54.41 ; Left shoulder pain, unspecified chronicity M25.512 and Essential hypertension I10 [place] [address] [place] [address] [place] [address] Jun, Lumbago with sciatica, left side M54.42 ; Lumbago with sciatica, right side M54.41 ; Left shoulder pain, unspecified chronicity M25.512 ; Essential hypertension I10 ; Heart murmur previously undiagnosed R01.1 ; Overweight E66.3 ; Anxiety F41.9 and Chronic prescription opiate use Z79.891 [place] [address] [address] Jun, Primary osteoarthritis, unspecified site M19.91 [place] [address] [address] Jun, [place] [address] [place] [address] [place] [address] May, Primary osteoarthritis, unspecified site M19.91 [place] [address] [address] May, Injury of left rotator cuff, subsequent encounter S46.002D [place] [address] [place] [address] [place] [address] May, [place] [address] [place] [address] [place] [address] Apr, [place] [address] [place] [address] [place] [address] Apr, PVD (peripheral vascular disease) I73.9 ; Right leg claudication I73.9 ; Hyperlipidemia, unspecified hyperlipidemia type E78.5 ; Occlusion of femoropopliteal bypass graft, 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 and Essential hypertension I10 [place] [address] [address] Apr, Left shoulder pain, unspecified chronicity M25.512 [place] [address] [place] [address] [place] [address] Mar, Left shoulder pain, unspecified chronicity M25.512 [facility] [address]00565100[place] [address] Mar, [facility] [address] [place] [id number] [place] [address] Mar, [facility] [address] [place] [address] Mar, Dupuytren's contracture of hand M72.0 ; Essential hypertension I10 ; Pure hypercholesterolemia E78.00 ; Primary osteoarthritis, unspecified site M19.91 ; PVD (peripheral vascular disease) I73.9 and Moderate single current episode of major depressive disorder F32.1 [facility] [address] [place] [id number] Feb, Dental examination Z01.20 and Dental caries K02.9 [place] [address] [place] [address] [place] [address] Feb, Primary osteoarthritis, unspecified site M19.91 [facility] [address] [place] [id number] [place] [address] Feb, [facility] [address] [place] [id number] [place] [address] Feb, [facility] [address] [place] [address] Nov, [facility] [address] [place] [id number] [place] [address] Nov, Dupuytren's contracture of hand M72.0 ; Pure hypercholesterolemia E78.00 ; Essential hypertension I10 ; PVD (peripheral vascular disease) I73.9 ; Primary osteoarthritis, unspecified site M19.91 and Rheumatoid arthritis, involving unspecified site, unspecified rheumatoid factor presence M06.9 [facility] [address]65[address], [place] [address] Nov, IMMUNIZATIONS No Known Immunizations SOCIAL HISTORY Never Assessed REASON FOR VISIT PLAN OF CARE VITAL SIGNS MEDICATIONS Medication Instructions Dosage Frequency Start Date End Date Duration Status Tramadol HCl 50 MG Orally TID PRN TAKE ONE TABLET BY MOUTH THREE TIMES DAILY NEEDED 28 Active Hydrocodone-Acetaminophen 5-325 MG Orally 3 times a day 1 tablet as needed 8h Nov, 28 Active RESULTS No Results PROCEDURES No Known procedures INSTRUCTIONS MEDICATIONS ADMINISTERED No Known Medications MEDICAL (GENERAL) HISTORY Type Description Date Medical History dupuytren's contracture-hand bilateral Medical History hypertension Medical History hyperlipidemia Medical History Arthritis Medical History peripheral vascular disease Medical History rheumatoid arthritis Surgical History cervical fusion C3-C7 -[facility] 05/2015 Surgical History dupuytren's contracture-bilateral hands Surgical History Artery bypass in right leg Surgical History Occipital bone surgery right side Surgical History surgery near right eye Surgical History [place] Left shoulder replacement 01/13/2018 Hospitalization History Surgery(s) only Hospitalization History [facility] [place]- Cold Symptoms 03/03/2018
--- OUTSIDE RECORDS SUMMARY | 2018-12-22 13:58 | XMS REPORT ---
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 Name Role Phone SINDY LANDAVERDE Unavailable PROBLEMS Type Condition ICD9-CM Code PZU22-ZA Code Onset Dates Condition Status SNOMED Code Problem Lumbago with sciatica, left side M54.42 Active 267206509 Problem Chronic prescription opiate use Z79.891 Active 481349774 Problem Lumbago with sciatica, right side M54.41 Active 711010575161678 Problem Claustrophobia F40.240 Active 85785101 Problem Essential hypertension I10 Active 28702680 Problem Hypogonadism in male E29.1 Active 84287688 Problem Tear of left rotator cuff, unspecified tear extent M75.102 Active 1250318 Problem Left shoulder pain, unspecified chronicity M25.512 Active 75720673 Problem Hypotestosteronism E34.9 Active 6658901006806 Problem Erectile dysfunction, unspecified erectile dysfunction type N52.9 Active 064694841 Problem Primary osteoarthritis, unspecified site M19.91 Active 093612543 Problem Dupuytren's contracture of hand M72.0 Active 300015925 Problem PVD (peripheral vascular disease) I73.9 Active 888170801 Problem Rheumatoid arthritis, involving unspecified site, unspecified rheumatoid factor presence M06.9 Active 02432617 Problem Right leg claudication I73.9 Active 276909198 Problem Hyperlipidemia, unspecified hyperlipidemia type E78.5 Active 92355926 Problem Pure hypercholesterolemia E78.00 Active 371389952 Problem Primary osteoarthritis, 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 [id number] [place] [address] Mar, Encounter for pre-operative laboratory testing Z01.[address] [facility] [address] [id number] [place] [id number] Mar, Acute otitis externa of right ear, unspecified type H60.501 ; Hypotestosteronism E34.9 and Encounter for pre-operative laboratory testing Z01.[address] [facility] [address] [id number] [place] [id number] Mar, [facility] [address] [id number] [place] [id number] Mar, Hypogonadism in male E29.1 and Hypotestosteronism E34.[address] [facility] [address] [id number] [place] [id number] Mar, Acute otitis externa of right ear, unspecified type H60.[address] [facility] [address] [id number] [place] [id number] Mar, Hypotestosteronism E34.9 [facility] [address] [facility] [address] [id number] [place] [id number] Feb, [facility] [place] [address] [facility] [id number][place] [id number] Feb, PVD (peripheral vascular disease) I73.9 ; Pure hypercholesterolemia E78.00 and Primary osteoarthritis, unspecified site M19.[address] [facility] [address] [id number] [place] [id number] Feb, Hypotestosteronism E34.[address] [facility] [address] [id number] [place] [id number] Feb, Upper respiratory infection, viral J06.[address] [facility] [address] [id number] [place] [id number] Feb, Hypotestosteronism E34.9 [facility] [place] [address] [facility] [id number], [place] [id number] January, [facility] [address] [id number] [place] [id number] January, Hypotestosteronism E34.9 [facility] [address] [facility] [id number] [place] [id number] January, Hypotestosteronism E34.9 [facility] [place] [address] [facility] [id number][place] [id number] Dec, [facility] [address] [facility] [id number] [place] [address] Dec, Erectile dysfunction, unspecified erectile dysfunction type N52.9 [facility] [address] [place] [id number] [id number] Dec, [facility] [address]00565100[place] [id number] Dec, Pre-operative cardiovascular examination Z01.810 ; PVD (peripheral vascular disease) I73.9 ; Anxiety F41.9 ; Rheumatoid arthritis, involving unspecified site, unspecified rheumatoid factor presence M06.9 ; Essential hypertension I10 ; Hyperlipidemia, unspecified hyperlipidemia type E78.5 and Hypotestosteronism E34.[address] [facility] [address] [id number] [place] [id number] Dec, [facility] [address] [id number] [place] [id number] Dec, Erectile dysfunction, unspecified erectile dysfunction type N52.9 and Hypotestosteronism E34.[address] [facility] [address] [id number] [place] [id number] Dec, Hypotestosteronism E34.9 [facility] [address] [facility] [id number], [place] [id number] Nov, [facility] [place] [address] [place] [id number] [address] Nov, Hypotestosteronism E34.9 [facility] [place] [address] [facility] [id number], [place] [id number] Nov, Pure hypercholesterolemia E78.00 and Primary osteoarthritis, unspecified site M19.[address] [facility] [address] [id number] [place] [id number] Nov, [facility] [place] [address] [facility] [id number], [place] [address] Nov, Tear of left glenoid labrum, subsequent encounter S43.432D [facility] [address] [id number] [place] [id number] Nov, Hypotestosteronism E34.9 [facility] [address] [id number] [place] [id number] Nov, [facility] [address] [id number] [place] [id number] Nov, [facility] [address] [id number] [place] [address] Nov, Erectile dysfunction, unspecified erectile dysfunction type N52.[address] [facility] [address] [id number] [place] [id number] Nov, Erectile dysfunction, unspecified erectile dysfunction type N52.9 [facility] [address] [id number] [place] [id number] Nov, Viral upper respiratory tract infection J06.9 and Erectile dysfunction, unspecified erectile dysfunction type N52.9 [facility] [address] [id number] [place] [id number] Oct, [facility] [address] [id number] [place] [address] Oct, [facility] [address] [id number] [place] [id number] Oct, Fall on same level due to nature of surface, initial encounter W18.39XA and Erectile dysfunction, unspecified erectile dysfunction type N52.9 [facility] [address] [address] Sep, [place] [address] [address] Sep, Tear of left rotator cuff, unspecified tear extent M75.102 and Primary osteoarthritis, 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 [place] [address] [address] Aug, Primary osteoarthritis, unspecified site M19.91 [place] [address] [address] Jul, [place] [address] [address] Jul, Primary osteoarthritis, unspecified site M19.91 [place] [address] [address] Jul, Lumbago with sciatica, right side M54.41 [place] [address] [address] Jul, Primary osteoarthritis, 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 and Injury of left rotator cuff, subsequent encounter S46.002D [place] [address] [address] Jul, [place] [address] [place] [id number] [place] [address] Jul, [place] [address] [place] [id number] [place] [address] Jul, [place] [address] [address] Jul, Lumbago with sciatica, left side M54.42 ; Lumbago with sciatica, right side M54.41 ; Left shoulder pain, unspecified chronicity M25.512 and Essential hypertension I10 [place] [address] [place] [id number] [place] [address] Jun, Lumbago with sciatica, left side M54.42 ; Lumbago with sciatica, right side M54.41 ; Left shoulder pain, unspecified chronicity M25.512 ; Essential hypertension I10 ; Heart murmur previously undiagnosed R01.1 ; Overweight E66.3 ; Anxiety F41.9 and Chronic prescription opiate use Z79.891 [place] [address] [address] Jun, Primary osteoarthritis, unspecified site M19.91 [place] [address] [address] Jun, [place] [address] [place] [id number] [place] [address] May, Primary osteoarthritis, unspecified site M19.91 [place] [address] [address] May, Injury of left rotator cuff, subsequent encounter S46.002D [place] [address] [place] [id number] [place] [address] May, [place] [address] [place] [id number] [place] [address] Apr, [place] [address] [place] [id number] [place] [address] Apr, PVD (peripheral vascular disease) I73.9 ; Right leg claudication I73.9 ; Hyperlipidemia, unspecified hyperlipidemia type E78.5 ; Occlusion of femoropopliteal bypass graft, 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 and Essential hypertension I10 [place] [address] [address] Apr, Left shoulder pain, unspecified chronicity M25.512 [place] [address] [place] [id number] [place] [address] Mar, Left shoulder pain, unspecified chronicity M25.512 [facility] [address] [address] Mar, [facility] [address] [place] [id number] [place] [address] Mar, [facility] [address] [place] [address] Mar, Dupuytren's contracture of hand M72.0 ; Essential hypertension I10 ; Pure hypercholesterolemia E78.00 ; Primary osteoarthritis, unspecified site M19.91 ; PVD (peripheral vascular disease) I73.9 and Moderate single current episode of major depressive disorder F32.1 [facility] [address] [place] [id number] Feb, Dental examination Z01.20 and Dental caries K02.9 [place] [address] [place] [id number] [place] [address] Feb, Primary osteoarthritis, unspecified site M19.91 [facility] [address] [place] [id number] [place] [address] Feb, [place] [address] [place] [id number] [place] [address] Feb, [facility] [address] [place] [address] Nov, [facility] [address] [place] [id number] [place] [address] Nov, Dupuytren's contracture of hand M72.0 ; Pure hypercholesterolemia E78.00 ; Essential hypertension I10 ; PVD (peripheral vascular disease) I73.9 ; Primary osteoarthritis, unspecified site M19.91 and Rheumatoid arthritis, involving unspecified site, unspecified rheumatoid factor presence M06.9 [facility] [address]65100[place] [address] Nov, IMMUNIZATIONS No Known Immunizations SOCIAL HISTORY Never Assessed REASON FOR VISIT refill meds PLAN OF CARE VITAL SIGNS MEDICATIONS Medication Instructions Dosage Frequency Start Date End Date Duration Status Lisinopril-Hydrochlorothiazide 10-12.5 MG Orally Once a day 1 tablet 24h 90 days Active Lipitor 20 mg Orally Once a day 1 tablet 24h 90 days Active Cyclobenzaprine HCl 10 mg Orally Three times a day 1 tablet as needed 8h Active RESULTS No Results PROCEDURES No Known procedures INSTRUCTIONS MEDICATIONS ADMINISTERED No Known Medications MEDICAL (GENERAL) HISTORY Type Description Date Medical History dupuytren's contracture-hand bilateral Medical History hypertension Medical History hyperlipidemia Medical History Arthritis Medical History peripheral vascular disease Medical History rheumatoid arthritis Surgical History cervical fusion C3-C7 -[facility] 05/2015 Surgical History dupuytren's contracture-bilateral hands Surgical History Artery bypass in right leg Surgical History Occipital bone surgery right side Surgical History surgery near right eye Surgical History [place] Left shoulder replacement 01/13/2018 Hospitalization History Surgery(s) only Hospitalization History [facility] [place]- Cold Symptoms 03/03/2018
--- OUTSIDE RECORDS SUMMARY | 2018-12-22 13:58 | XMS REPORT ---
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 Name Role Phone SINDY LANDAVERDE Unavailable PROBLEMS Type Condition ICD9-CM Code [id number] Code Onset Dates Condition Status SNOMED Code Problem Lumbago with sciatica, left side M54.42 Active 456628488 Problem Chronic prescription opiate use Z79.891 Active 325624673 Problem Lumbago with sciatica, right side M54.41 Active 909553634439385 Problem Claustrophobia F40.240 Active 75735137 Problem Essential hypertension I10 Active 45575796 Problem Hypogonadism in male E29.1 Active 03055228 Problem Tear of left rotator cuff, unspecified tear extent M75.102 Active 2872927 Problem Left shoulder pain, unspecified chronicity M25.512 Active 97157255 Problem Hypotestosteronism E34.9 Active 7270924538065 Problem Erectile dysfunction, unspecified erectile dysfunction type N52.9 Active 752514354 Problem Primary osteoarthritis, unspecified site M19.91 Active 154339664 Problem Dupuytren's contracture of hand M72.0 Active 594300910 Problem PVD (peripheral vascular disease) I73.9 Active 282387259 Problem Rheumatoid arthritis, involving unspecified site, unspecified rheumatoid factor presence M06.9 Active 10950088 Problem Right leg claudication I73.9 Active 463312338 Problem Hyperlipidemia, unspecified hyperlipidemia type E78.5 Active 30806137 Problem Pure hypercholesterolemia E78.00 Active 420915146 Problem Primary osteoarthritis, 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 Active 65580748 Problem Moderate single current episode of major depressive disorder F32.1 Active 19542345 Problem Anxiety F41.9 Active 02045137 ALLERGIES No Information ENCOUNTERS Encounter Location Date Diagnosis [facility] [address] [id number] [id number] Mar, Claustrophobia F40.[address] [facility] [address] [id number][place] [id number] Mar, Hypotestosteronism E34.9 [facility] [address] [facility] [id number] [place] [address] Mar, Encounter for pre-operative laboratory testing Z01.[address] [facility] [address] [id number][place] [id number] Mar, Acute otitis externa of right ear, unspecified type H60.501 ; Hypotestosteronism E34.9 and Encounter for pre-operative laboratory testing Z01.[address] [facility] [address] [id number][place] [id number] Mar, [facility] [address] [id number][place] [id number] Mar, Hypogonadism in male E29.1 and Hypotestosteronism E34.[address] [facility] [address] [id number][place] [id number] Mar, Acute otitis externa of right ear, unspecified type H60.[address] [facility] [address] [id number][place] [id number] Mar, Hypotestosteronism E34.9 [facility] [address] [facility] [address] [id number][place] [id number] Feb, [facility] [address] [facility] [id number] B[place] [id number] Feb, PVD (peripheral vascular disease) I73.9 ; Pure hypercholesterolemia E78.00 and Primary osteoarthritis, unspecified site M19.[address] [facility] [address] [id number][place] [id number] Feb, Hypotestosteronism E34.[address] [facility] [address] [id number][place] [id number] Feb, Upper respiratory infection, viral J06.[address] [facility] [address] [id number] [place] [id number] Feb, Hypotestosteronism E34.9 [facility] [address] [facility] [id number] B[place] [id number] January, [facility] [address] [id number][place] [id number] January, Hypotestosteronism E34.9 [facility] [address] [facility] [address] [id number][place] [id number] January, Hypotestosteronism E34.9 [facility] [address] [facility] [id number] [place] [id number] Dec, [facility] [address] [facility] [address] [id number][place] [id number] Dec, Erectile dysfunction, unspecified erectile dysfunction type N52.9 [facility] [address] [place] [id number] [place] [id number] Dec, [facility] [address]65100[address] [id number] Dec, Pre-operative cardiovascular examination Z01.810 ; PVD (peripheral vascular disease) I73.9 ; Anxiety F41.9 ; Rheumatoid arthritis, involving unspecified site, unspecified rheumatoid factor presence M06.9 ; Essential hypertension I10 ; Hyperlipidemia, unspecified hyperlipidemia type E78.5 and Hypotestosteronism E34.[address] [facility] [address] [id number], [place] [id number] Dec, [facility] [address] [id number], [place] [id number] Dec, Erectile dysfunction, unspecified erectile dysfunction type N52.9 and Hypotestosteronism E34.9 [facility] [address] [id number][place] [id number] Dec, Hypotestosteronism E34.9 [facility] [address] [facility] [id number] BEND[place] [id number] Nov, [facility] [address] [place] [id number] [place] [address] Nov, Hypotestosteronism E34.9 [facility] [address] [facility] [id number] [place] [id number] Nov, Pure hypercholesterolemia E78.00 and Primary osteoarthritis, unspecified site M19.[address] [facility] [address] [id number][place] [id number] Nov, [facility] [address] [facility] [id number], [place] [address] Nov, Tear of left glenoid labrum, subsequent encounter S43.432D [facility] [address] [id number][place] [id number] Nov, Hypotestosteronism E34.9 [facility] [address] [id number][place] [id number] Nov, [facility] [address] [id number][place] [id number] Nov, [facility] [address] [id number], [place] [id number] Nov, Erectile dysfunction, unspecified erectile dysfunction type N52.[address] [facility] [address] [id number][place] [id number] Nov, Erectile dysfunction, unspecified erectile dysfunction type N52.9 [facility] [address] [id number], [place] [id number] Nov, Viral upper respiratory tract infection J06.9 and Erectile dysfunction, unspecified erectile dysfunction type N52.9 [facility] [address] [id number], [place] [id number] Oct, [facility] [address] [id number], [place] [id number] Oct, [facility] [address] [id number][place] [id number] Oct, Fall on same level due to nature of surface, initial encounter W18.39XA and Erectile dysfunction, unspecified erectile dysfunction type N52.9 [facility] [place] [address] [address] Sep, [place] [address] [address] Sep, Tear of left rotator cuff, unspecified tear extent M75.102 and Primary osteoarthritis, 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 [place] [address] [address] Aug, Primary osteoarthritis, unspecified site M19.91 [place] [address] [address] Jul, [place] [address] [address] Jul, Primary osteoarthritis, unspecified site M19.91 [place] [address] [address] Jul, Lumbago with sciatica, right side M54.41 [place] [address] [address] Jul, Primary osteoarthritis, 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 and Injury of left rotator cuff, subsequent encounter S46.002D [place] [address] [address] Jul, [place] [address] [place] [id number] [place] [address] Jul, [place] [address] [place] [id number] [place] [address] Jul, [place] [address] [address] Jul, Lumbago with sciatica, left side M54.42 ; Lumbago with sciatica, right side M54.41 ; Left shoulder pain, unspecified chronicity M25.512 and Essential hypertension I10 [place] [address] [place] [id number] [place] [address] Jun, Lumbago with sciatica, left side M54.42 ; Lumbago with sciatica, right side M54.41 ; Left shoulder pain, unspecified chronicity M25.512 ; Essential hypertension I10 ; Heart murmur previously undiagnosed R01.1 ; Overweight E66.3 ; Anxiety F41.9 and Chronic prescription opiate use Z79.891 [place] [address] [address] Jun, Primary osteoarthritis, unspecified site M19.91 [place] [address] [address] Jun, [place] [address] [place] [id number] [place] [address] May, Primary osteoarthritis, unspecified site M19.91 [place] [address] [address] May, Injury of left rotator cuff, subsequent encounter S46.002D [place] [address] [place] [id number] [place] [address] May, [place] [address] [place] [id number] [place] [address] Apr, [place] [address] [place] [id number] [place] [address] Apr, PVD (peripheral vascular disease) I73.9 ; Right leg claudication I73.9 ; Hyperlipidemia, unspecified hyperlipidemia type E78.5 ; Occlusion of femoropopliteal bypass graft, 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 and Essential hypertension I10 [place] [address] [address] Apr, Left shoulder pain, unspecified chronicity M25.512 [place] [address] [place] [id number] [place] [address] Mar, Left shoulder pain, unspecified chronicity M25.512 [facility] [place] [address]65[address] [address] Mar, [facility] [place] [address] [place] [id number] [place] [address] Mar, [facility] [place] [address] [place] [address] Mar, Dupuytren's contracture of hand M72.0 ; Essential hypertension I10 ; Pure hypercholesterolemia E78.00 ; Primary osteoarthritis, unspecified site M19.91 ; PVD (peripheral vascular disease) I73.9 and Moderate single current episode of major depressive disorder F32.1 [facility] [address] [place] [id number] Feb, Dental examination Z01.20 and Dental caries K02.9 [place] [address] [place] [id number] [place] [address] Feb, Primary osteoarthritis, unspecified site M19.91 [facility] [place] [address] [place] [id number] [place] [address]- [address] Feb, [place] [address] [place] [id number] [place] [address] Feb, [facility] [place] [address] [place] [address] Nov, [facility] [place] [address] [place] [id number] [place] [address] Nov, Dupuytren's contracture of hand M72.0 ; Pure hypercholesterolemia E78.00 ; Essential hypertension I10 ; PVD (peripheral vascular disease) I73.9 ; Primary osteoarthritis, unspecified site M19.91 and Rheumatoid arthritis, involving unspecified site, unspecified rheumatoid factor presence M06.9 [facility] [place] [address]65[address], [place] [address] Nov, IMMUNIZATIONS No Known Immunizations SOCIAL HISTORY Never Assessed REASON FOR VISIT medication question PLAN OF CARE VITAL SIGNS MEDICATIONS Medication Instructions Dosage Frequency Start Date End Date Duration Status Testosterone 20.25 MG/ACT (1.62%) Transdermal Once a day 1 application to skin to affected area in the morning 24h Nov, 30 days Active RESULTS No Results PROCEDURES No Known procedures INSTRUCTIONS MEDICATIONS ADMINISTERED No Known Medications MEDICAL (GENERAL) HISTORY Type Description Date Medical History dupuytren's contracture-hand bilateral Medical History hypertension Medical History hyperlipidemia Medical History Arthritis Medical History peripheral vascular disease Medical History rheumatoid arthritis Surgical History cervical fusion C3-C7 -[facility] 05/2015 Surgical History dupuytren's contracture-bilateral hands Surgical History Artery bypass in right leg Surgical History Occipital bone surgery right side Surgical History surgery near right eye Surgical History [facility] Left shoulder replacement 01/13/2018 Hospitalization History Surgery(s) only Hospitalization History [facility] [place]- Cold Symptoms 03/03/2018
--- OUTSIDE RECORDS SUMMARY | 2018-12-22 13:59 | XMS REPORT ---
Author Author JUAN A LUNDBERG Organization [facility] Address [address] [place] [address] Care Team Providers Care Business Associate Name Role Phone JUAN A LUNDBERG Unavailable PROBLEMS Type Condition ICD9-CM Code [id number] Code Onset Dates Condition Status SNOMED Code Problem Lumbago with sciatica, left side M54.42 Active 497114485 Problem Chronic prescription opiate use Z79.891 Active 829181918 Problem Lumbago with sciatica, right side M54.41 Active 685952011763046 Problem Claustrophobia F40.240 Active 51303724 Problem Essential hypertension I10 Active 47731859 Problem Hypogonadism in male E29.1 Active 90763260 Problem Tear of left rotator cuff, unspecified tear extent M75.102 Active 9722896 Problem Left shoulder pain, unspecified chronicity M25.512 Active 38761586 Problem Hypotestosteronism E34.9 Active 4800523717205 Problem Erectile dysfunction, unspecified erectile dysfunction type N52.9 Active 690678690 Problem Primary osteoarthritis, unspecified site M19.91 Active 683833360 Problem Dupuytren's contracture of hand M72.0 Active 157443895 Problem PVD (peripheral vascular disease) I73.9 Active 096987009 Problem Rheumatoid arthritis, involving unspecified site, unspecified rheumatoid factor presence M06.9 Active 88041166 Problem Right leg claudication I73.9 Active 303761827 Problem Hyperlipidemia, unspecified hyperlipidemia type E78.5 Active 34888585 Problem Pure hypercholesterolemia E78.00 Active 060043549 Problem Primary osteoarthritis, 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 Active 34010515 Problem Moderate single current episode of major depressive disorder F32.1 Active 59824802 Problem Anxiety F41.9 Active 85256994 ALLERGIES No Information ENCOUNTERS Encounter Location Date Diagnosis [facility] [address] [facility] [id number] [place] [id number] Mar, Claustrophobia F40.[address] [facility] [address] [id number][place] [address]5938[address] 16 Mar, 2018 Hypotestosteronism E34.9 [facility] [address] [facility] [id number], [place] 31955709- [address] 10 Mar, 2018 Encounter for pre-operative laboratory testing Z01.[address] [facility] [address] [id number], [place] [address] Mar, Acute otitis externa of right ear, unspecified type H60.501 ; Hypotestosteronism E34.9 and Encounter for pre-operative laboratory testing Z01.812 [facility] [address] [id number], [place] [id number] Mar, [facility] [address] [id number], [place] [id number] Mar, Hypogonadism in male E29.1 and Hypotestosteronism E34.[address] [facility] [address] [id number], [place] [id number] Mar, Acute otitis externa of right ear, unspecified type H60.501 [facility] [address] [id number], [place] 146[address]30[address] Mar, Hypotestosteronism E34.9 [facility] [address] [id number], [place] [address] Feb, [facility] [address] [facility] [id number] [place] [address] Feb, PVD (peripheral vascular disease) I73.9 ; Pure hypercholesterolemia E78.00 and Primary osteoarthritis, unspecified site M19.[address] [facility] [address] [id number], [place] 744513236 Feb, Hypotestosteronism E34.[address] [facility] [address] [id number], [place] 2685228[address] Feb, Upper respiratory infection, viral J06.[address] [facility] [address] [id number], [place] 96[address]03055 Feb, Hypotestosteronism E34.9 [facility] [address] [facility] [id number] [place] [address] January, [facility] [address] [id number], [place] [address]365[address] January, Hypotestosteronism E34.9 [facility] [address] [id number], [place] 379591155 January, Hypotestosteronism E34.9 [facility] [address] [facility] [id number] [place] 114[address] Dec, [facility] [address] [address] [facility] [address] [id number], [place] 8489[address] Dec, Erectile dysfunction, unspecified erectile dysfunction type N52.9 [facility] [address] [place] [address] [id number] [place] [address] Dec, [facility] [place] [id number] [place] 7827[address]674 Dec, Pre-operative cardiovascular examination Z01.810 ; PVD (peripheral vascular disease) I73.9 ; Anxiety F41.9 ; Rheumatoid arthritis, involving unspecified site, unspecified rheumatoid factor presence M06.9 ; Essential hypertension I10 ; Hyperlipidemia, unspecified hyperlipidemia type E78.5 and Hypotestosteronism E34.9 [facility] [address] [facility] [address] [id number], [place] [id number] Dec, [facility] [address] [id number], [place] 411859019 Dec, Erectile dysfunction, unspecified erectile dysfunction type N52.9 and Hypotestosteronism E34.[address] [facility] [address] [id number], [place] 697239884 Dec, Hypotestosteronism E34.9 [facility] [place] [address] [facility] [id number] [place] 6[address]36[address] Nov, [facility] [address]00565100[place] [address] Nov, Hypotestosteronism E34.9 [facility] [address] [id number] [place] [address] Nov, Pure hypercholesterolemia E78.00 and Primary osteoarthritis, unspecified site M19.[address] [facility] [address] [id number], [place] 315347928 Nov, [facility] [address] [facility] [id number], [place] 01433758- 8455 Nov, Tear of left glenoid labrum, subsequent encounter S43.432D [facility] [address] [id number], [place] 496953876 Nov, Hypotestosteronism E34.9 [facility] [address] [id number], [place] 0[address]33[address] Nov, [facility] [address] [id number], [place] 975336847 Nov, [facility] [address] [id number], [place] 225700668 Nov, Erectile dysfunction, unspecified erectile dysfunction type N52.9 [facility] [address] [id number], [place] 390825153 Nov, Erectile dysfunction, unspecified erectile dysfunction type N52.9 [facility] [address] [id number], [place] 338038379 Nov, Viral upper respiratory tract infection J06.9 and Erectile dysfunction, unspecified erectile dysfunction type N52.[address] [facility] [address] [id number], [place] 780793666 Oct, [facility] [address] [id number], [place] [address]26112559 Oct, [facility] [address] [id number], [place] 172297609 Oct, Fall on same level due to nature of surface, initial encounter W18.39XA and Erectile dysfunction, unspecified erectile dysfunction type N52.9 [place] [address] [address] Sep, [place] [address] 19072- 5657 Sep, Tear of left rotator cuff, unspecified tear extent M75.102 and Primary osteoarthritis, 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 [place] [address] [address]15- 4703 Aug, Primary osteoarthritis, unspecified site M19.91 [place] [address] 20786- 8219 Jul, [place] [address] 9[address] 3715 Jul, Primary osteoarthritis, unspecified site M19.91 [place] [address] 0[address]88- 2070 Jul, Lumbago with sciatica, right side M54.41 [place] [address] 29094- 1259 Jul, Primary osteoarthritis, 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 and Injury of left rotator cuff, subsequent encounter S46.002D [place] [address] 30627- 0103 Jul, [place] [address] 17304- 4838 Jul, [place] [address] [place] [id number] [place] [address] 13282- 6217 Jul, [place] [address] [address]17- 0394 Jul, Lumbago with sciatica, left side M54.42 ; Lumbago with sciatica, right side M54.41 ; Left shoulder pain, unspecified chronicity M25.512 and Essential hypertension I10 [place] [address] 12119- 7297 Jun, Lumbago with sciatica, left side M54.42 ; Lumbago with sciatica, right side M54.41 ; Left shoulder pain, unspecified chronicity M25.512 ; Essential hypertension I10 ; Heart murmur previously undiagnosed R01.1 ; Overweight E66.3 ; Anxiety F41.9 and Chronic prescription opiate use Z79.891 [place] [address] 01184- 7922 Jun, Primary osteoarthritis, unspecified site M19.91 [place] [address] 09786- 8070 Jun, [place] [address] 24910- 2494 May, Primary osteoarthritis, unspecified site M19.91 [place] [address] 43553- 0370 May, Injury of left rotator cuff, subsequent encounter S46.002D [place] [address] 64340- 3154 May, [place] [address] 74862- 1880 Apr, [place] [address] 07100- 6536 Apr, PVD (peripheral vascular disease) I73.9 ; Right leg claudication I73.9 ; Hyperlipidemia, unspecified hyperlipidemia type E78.5 ; Occlusion of femoropopliteal bypass graft, 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 and Essential hypertension I10 [place] [address] 46168- 9627 Apr, Left shoulder pain, unspecified chronicity M25.512 [place] [address] 74231- 2770 Mar, Left shoulder pain, unspecified chronicity M25.512 [place] [address] [place] [id number] [place] [address]386- 0722 Mar, [facility] [address] [place] [id number] [place] [address] 67279- 1474 Mar, [facility] [address] [place] [id number] [place] [address] 53370- 3932 Mar, Dupuytren's contracture of hand M72.0 ; Essential hypertension I10 ; Pure hypercholesterolemia E78.00 ; Primary osteoarthritis, unspecified site M19.91 ; PVD (peripheral vascular disease) I73.9 and Moderate single current episode of major depressive disorder F32.1 [facility] [address] [place] [id number] [place] [id number] Feb, Dental examination Z01.20 and Dental caries K02.9 [place] [address] [place] [id number] [place] [address] 29587- 2910 Feb, Primary osteoarthritis, unspecified site M19.91 [facility] [address] [place] [id number] [place] [address] 59128- 7210 Feb, [place] [address] [place] [id number] [place] [address] 24558- 4332 Feb, [facility] [address] [place] [id number] [place] [address] 16006- 8164 Nov, [facility] [address] [place] [id number] [place] [address] 44927- 1114 Nov, Dupuytren's contracture of hand M72.0 ; Pure hypercholesterolemia E78.00 ; Essential hypertension I10 ; PVD (peripheral vascular disease) I73.9 ; Primary osteoarthritis, unspecified site M19.91 and Rheumatoid arthritis, involving unspecified site, unspecified rheumatoid factor presence M06.9 [facility] [address] [place] [id number] [place] [address] 00599- 9446 Nov, IMMUNIZATIONS No Known Immunizations SOCIAL HISTORY Never Assessed REASON FOR VISIT Referral PLAN OF CARE VITAL SIGNS MEDICATIONS Unknown Medications RESULTS No Results PROCEDURES No Known procedures INSTRUCTIONS MEDICATIONS ADMINISTERED No Known Medications MEDICAL (GENERAL) HISTORY Type Description Date Medical History dupuytren's contracture-hand bilateral Medical History hypertension Medical History hyperlipidemia Medical History Arthritis Medical History peripheral vascular disease Medical History rheumatoid arthritis Surgical History cervical fusion C3-C7 -[facility] 05/2015 Surgical History dupuytren's contracture-bilateral hands Surgical History Artery bypass in right leg Surgical History Occipital bone surgery right side Surgical History surgery near right eye Surgical History [place] Left shoulder replacement 01/13/2018 Hospitalization History Surgery(s) only Hospitalization History [facility] [place]- Cold Symptoms 03/03/2018
--- OUTSIDE RECORDS SUMMARY | 2018-12-22 13:59 | XMS REPORT ---
Author Author SINDY LANDAVERDE Organization [facility] Address [address] [place] [address] Care Team Providers Care Retread Supervisor Name Role Phone SINDY LANDAVERDE Unavailable PROBLEMS Type Condition ICD9-CM Code NVO36-RI Code Onset Dates Condition Status SNOMED Code Problem Lumbago with sciatica, left side M54.42 Active 179453102 Problem Chronic prescription opiate use Z79.891 Active 174929344 Problem Lumbago with sciatica, right side M54.41 Active 968409872660719 Problem Claustrophobia F40.240 Active 35325299 Problem Essential hypertension I10 Active 61898033 Problem Hypogonadism in male E29.1 Active 43697962 Problem Tear of left rotator cuff, unspecified tear extent M75.102 Active 5475764 Problem Left shoulder pain, unspecified chronicity M25.512 Active 61713862 Problem Hypotestosteronism E34.9 Active 6448169393595 Problem Erectile dysfunction, unspecified erectile dysfunction type N52.9 Active 249004572 Problem Primary osteoarthritis, unspecified site M19.91 Active 777576689 Problem Dupuytren's contracture of hand M72.0 Active 330248961 Problem PVD (peripheral vascular disease) I73.9 Active 534050003 Problem Rheumatoid arthritis, involving unspecified site, unspecified rheumatoid factor presence M06.9 Active 76185751 Problem Right leg claudication I73.9 Active 846513650 Problem Hyperlipidemia, unspecified hyperlipidemia type E78.5 Active 71146193 Problem Pure hypercholesterolemia E78.00 Active 376438744 Problem Primary osteoarthritis, 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 Active 17246591 Problem Moderate single current episode of major depressive disorder F32.1 Active 42994973 Problem Anxiety F41.9 Active 36124151 ALLERGIES No Information ENCOUNTERS Encounter Location Date Diagnosis [facility] [address] [id number][place] [id number] Mar, Claustrophobia F40.[address] [facility] [address] [id number], [place] [address] Mar, Hypotestosteronism E34.9 [facility] [address] [facility] [id number] [place] [address]45[address]- [address] Mar, Encounter for pre-operative laboratory testing Z01.[address] [facility] [address] [id number], [place] 6[address]33[address] Mar, Acute otitis externa of right ear, unspecified type H60.501 ; Hypotestosteronism E34.9 and Encounter for pre-operative laboratory testing Z01.[address] [facility] [address] [id number], [place] [address]88187[address] Mar, [facility] [address] [id number], [place] [address]05545[address] Mar, Hypogonadism in male E29.1 and Hypotestosteronism E34.[address] [facility] [address] [id number], [place] 926505979 Mar, Acute otitis externa of right ear, unspecified type H60.[address] [facility] [address] [id number], [place] 134237777 Mar, Hypotestosteronism E34.9 [facility] [address] [facility] [address] [id number], [place] [id number] Feb, [facility] [address] [facility] [id number], [place] [id number] Feb, PVD (peripheral vascular disease) I73.9 ; Pure hypercholesterolemia E78.00 and Primary osteoarthritis, unspecified site M19.[address] [facility] [address] [id number], [place] [address]50[address] Feb, Hypotestosteronism E34.[address] [facility] [address] [id number], [place] [address]274[address] Feb, Upper respiratory infection, viral J06.[address] [facility] [address] [id number] [place] [id number] Feb, Hypotestosteronism E34.9 [facility] [address] [facility] [id number], [place] [address] January, [facility] [address] [id number][place] [id number] January, Hypotestosteronism E34.[address] [facility] [address] [facility] [address] [id number], [place] [id number] January, Hypotestosteronism E34.[address] [facility] [place] [address] [facility] [id number], [place] [address] Dec, [facility] [address] [facility] [address] [id number], [place] [address]7515 Dec, Erectile dysfunction, unspecified erectile dysfunction type N52.9 [facility] [address] [place] [address] [id number], [place] [id number] Dec, [facility] [address]00565100[place] [address] Dec, Pre-operative cardiovascular examination Z01.810 ; PVD (peripheral vascular disease) I73.9 ; Anxiety F41.9 ; Rheumatoid arthritis, involving unspecified site, unspecified rheumatoid factor presence M06.9 ; Essential hypertension I10 ; Hyperlipidemia, unspecified hyperlipidemia type E78.5 [address] E34[address] [facility] [address] [id number], [place] 759857446 Dec, [facility] [address] [id number], [place] 323405044 Dec, Erectile dysfunction, unspecified erectile dysfunction type N52.9 [address] E[address] [facility] [address] [id number], [place] [address]19413 Dec, Hypotestosteronism E34.9 [facility] [address] [facility] [id number], [place] 135879476 Nov, [facility] [address] [place] [id number] [address] Nov, Hypotestosteronism E34.9 [facility] [address] [facility] [id number], [place] [id number] Nov, Pure hypercholesterolemia E78.00 and Primary osteoarthritis, unspecified site M19.[address] [facility] [address] [id number], [place] 899506721 Nov, [facility] [address] [facility] [id number] [place] 416[place]- 9879 Nov, Tear of left glenoid labrum, subsequent encounter S43.432D [facility] [address] [id number], [place] 383535894 Nov, Hypotestosteronism E34.9 [facility] [address] [id number], [place] 55[address]75[address] Nov, [facility] [address] [id number], [place] 453808630 Nov, [facility] [address] [id number], [place] 463812514 Nov, Erectile dysfunction, unspecified erectile dysfunction type N52.[address] [facility] [address] [id number], [place] 337592801 Nov, Erectile dysfunction, unspecified erectile dysfunction type N52.9 [facility] [address] [id number], [place] 54[address]21471 Nov, Viral upper respiratory tract infection J06.9 and Erectile dysfunction, unspecified erectile dysfunction type N52.9 [facility] [address] [id number], [place] 464452634 Oct, [facility] [address] [id number], [place] 074532593 Oct, [facility] [address] [id number], [place] [address] Oct, Fall on same level due to nature of surface, initial encounter W18.39XA and Erectile dysfunction, unspecified erectile dysfunction type N52.9 [facility] [address] [address]76- 4984 Sep, [place] [address] 77642- 5085 Sep, Tear of left rotator cuff, unspecified tear extent M75.102 and Primary osteoarthritis, 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 [place] [address] 25120- 4128 Aug, Primary osteoarthritis, unspecified site M19.91 [place] [address] 981334- 1993 Jul, [place] [address] 75686- 7675 Jul, Primary osteoarthritis, unspecified site M19.91 [place] [address] 47809- 9922 Jul, Lumbago with sciatica, right side M54.41 [place] [address] 84918- 8676 Jul, Primary osteoarthritis, 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 and Injury of left rotator cuff, subsequent encounter S46.002D [place] [address] 16287- 0523 Jul, [place] [address] [place] [id number] [place] [address] 04101- 5076 Jul, [place] [address] [place] [id number] [place] [address] 87594- 0564 Jul, [place] [address] 72229- 2780 Jul, Lumbago with sciatica, left side M54.42 ; Lumbago with sciatica, right side M54.41 ; Left shoulder pain, unspecified chronicity M25.512 and Essential hypertension I10 [place] [address] [place] [id number] [place] [address] 93983- 4614 Jun, Lumbago with sciatica, left side M54.42 ; Lumbago with sciatica, right side M54.41 ; Left shoulder pain, unspecified chronicity M25.512 ; Essential hypertension I10 ; Heart murmur previously undiagnosed R01.1 ; Overweight E66.3 ; Anxiety F41.9 and Chronic prescription opiate use Z79.891 [place] [address] 43006- 8534 Jun, Primary osteoarthritis, unspecified site M19.91 [place] [address] 43197- 8815 Jun, [place] [address] [place] [address] [place] [address] 13319- 5424 May, Primary osteoarthritis, unspecified site M19.91 [place] [address] 69593- 1538 May, Injury of left rotator cuff, subsequent encounter S46.002D [place] [address] [place] [id number] [place] [address] 42202- 0935 May, [place] [address] [place] [id number] [place] [address] 31156- 3506 Apr, [place] [address] [place] [id number] [place] [address] 07906- 9794 Apr, PVD (peripheral vascular disease) I73.9 ; Right leg claudication I73.9 ; Hyperlipidemia, unspecified hyperlipidemia type E78.5 ; Occlusion of femoropopliteal bypass graft, 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 and Essential hypertension I10 [place] [address] 11106- 4409 Apr, Left shoulder pain, unspecified chronicity M25.512 [place] [address] [place] [id number] [place] [address] 06673- 5837 Mar, Left shoulder pain, unspecified chronicity M25.512 [facility] [address]65100[place] [address]- 7253 Mar, [facility] [address] [place] [id number] [place] [address] 36917- 3508 Mar, [facility] [address] [place] [address] 93981- 6343 Mar, Dupuytren's contracture of hand M72.0 ; Essential hypertension I10 ; Pure hypercholesterolemia E78.00 ; Primary osteoarthritis, unspecified site M19.91 ; PVD (peripheral vascular disease) I73.9 and Moderate single current episode of major depressive disorder F32.1 [facility] [address] [place] [address] [id number] Feb, Dental examination Z01.20 and Dental caries K02.9 [place] [address] [place] [id number] [place] [address] 00928- 9746 Feb, Primary osteoarthritis, unspecified site M19.91 [facility] [address] [place] [id number] [place] [address] 84356- 4256 Feb, [place] [address] [place] [id number] [place] [address] 41393- 8286 Feb, [facility] [address] [place] [address] 76971- 5222 Nov, [facility] [address] [place] [id number] [place] [address] 14886- 7147 Nov, Dupuytren's contracture of hand M72.0 ; Pure hypercholesterolemia E78.00 ; Essential hypertension I10 ; PVD (peripheral vascular disease) I73.9 ; Primary osteoarthritis, unspecified site M19.91 and Rheumatoid arthritis, involving unspecified site, unspecified rheumatoid factor presence M06.9 [facility] [address] [address]- 1182 Nov, IMMUNIZATIONS No Known Immunizations SOCIAL HISTORY [...] rheumatoid arthritis Surgical History cervical fusion C3[facility]C7 [facility] 05/2015 Surgical History dupuytren's contracture-bilateral hands Surgical History Artery bypass in right leg Surgical History Occipital bone surgery right side Surgical History surgery near right eye Surgical History [place] Left shoulder replacement 01/13/2018 Hospitalization History Surgery(s) only Hospitalization History [facility] [place]- Cold Symptoms 03/03/2018
--- OUTSIDE RECORDS SUMMARY | 2018-12-22 13:59 | XMS REPORT ---
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 Name Role Phone SINDY LANDAVERDE Unavailable PROBLEMS Type Condition ICD9-CM Code ATW34-IR Code Onset Dates Condition Status SNOMED Code Problem Lumbago with sciatica, left side M54.42 Active 836343189 Problem Chronic prescription opiate use Z79.891 Active 394756151 Problem Lumbago with sciatica, right side M54.41 Active 756306004723249 Problem Claustrophobia F40.240 Active 28572936 Problem Essential hypertension I10 Active 24139219 Problem Hypogonadism in male E29.1 Active 94872766 Problem Tear of left rotator cuff, unspecified tear extent M75.102 Active 9870749 Problem Left shoulder pain, unspecified chronicity M25.512 Active 59442215 Problem Hypotestosteronism E34.9 Active 0571540482387 Problem Erectile dysfunction, unspecified erectile dysfunction type N52.9 Active 230306400 Problem Primary osteoarthritis, unspecified site M19.91 Active 388298386 Problem Dupuytren's contracture of hand M72.0 Active 811791264 Problem PVD (peripheral vascular disease) I73.9 Active 285772827 Problem Rheumatoid arthritis, involving unspecified site, unspecified rheumatoid factor presence M06.9 Active 02496930 Problem Right leg claudication I73.9 Active 002838456 Problem Hyperlipidemia, unspecified hyperlipidemia type E78.5 Active 01294769 Problem Pure hypercholesterolemia E78.00 Active 425103208 Problem Primary osteoarthritis, 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 Active 20022999 Problem Moderate single current episode of major depressive disorder F32.1 Active 68424373 Problem Anxiety F41.9 Active 72311822 ALLERGIES No Information ENCOUNTERS Encounter Location Date Diagnosis [facility] [address] [id number][place] [id number] Mar, Claustrophobia F40.[address] [facility] [address] [id number] [place] [id number] Mar, Hypotestosteronism E34.9 [facility] [address] [id number] [place] [address] Mar, Encounter for pre-operative laboratory testing Z01.[address] [facility] [address] [id number] [place] [address] Mar, Acute otitis externa of right ear, unspecified type H60.501 ; Hypotestosteronism E34.9 and Encounter for pre-operative laboratory testing Z01.[address] [facility] [address] [id number] SPR[place] [address] Mar, [facility] [address] [id number] [place] 92425[address]56 Mar, Hypogonadism in male E29.1 and Hypotestosteronism E34.[address] [facility] [address] [id number] [place] [id number] Mar, Acute otitis externa of right ear, unspecified type H60.[address] [facility] [address] [id number] [place] [id number] Mar, Hypotestosteronism E34.9 [facility] [address] [id number] [place] [address] Feb, [facility] [place] [address] [facility] [id number], [place] [id number] Feb, PVD (peripheral vascular disease) I73.9 ; Pure hypercholesterolemia E78.00 and Primary osteoarthritis, unspecified site M19.[address] [facility] [address] [id number] [place] [address]26[address] Feb, Hypotestosteronism E34.[address] [facility] [address] [id number] [place] [address] Feb, Upper respiratory infection, viral J06.[address] [facility] [address] [id number] [place] [address] Feb, Hypotestosteronism E34.9 [facility] [address] [facility] [id number], [place] [id number] January, [facility] [address] [id number] [place] [id number] January, Hypotestosteronism E34.9 [facility] [address] [id number] [place] [id number] January, Hypotestosteronism E34.9 [facility] [place] [address] [facility] [id number], [place] [id number] Dec, [facility] [address] [id number] [place] [address]677945 Dec, Erectile dysfunction, unspecified erectile dysfunction type N52.9 [facility] [address] [place] [id number], [place] [id number] Dec, [facility] [address]00565[address] [address] Dec, Pre-operative cardiovascular examination Z01.810 ; PVD (peripheral vascular disease) I73.9 ; Anxiety F41.9 ; Rheumatoid arthritis, involving unspecified site, unspecified rheumatoid factor presence M06.9 ; Essential hypertension I10 ; Hyperlipidemia, unspecified hyperlipidemia type E78.5 and Hypotestosteronism E34.9 [facility] [address] [id number] [place] [id number] Dec, [facility] [address] [id number] [place] 196628600 Dec, Erectile dysfunction, unspecified erectile dysfunction type N52.9 and Hypotestosteronism E34.9 [facility] [address] [id number] [place] [id number] Dec, Hypotestosteronism E34.9 [facility] [address] [facility] [id number], [place] [id number] Nov, [facility] [address] [place] [id number] [address] Nov, Hypotestosteronism E34.9 [facility] [place] [address] [facility] [id number], [place] [id number] Nov, Pure hypercholesterolemia E78.00 and Primary osteoarthritis, unspecified site M19.[address] [facility] [address] [id number] [place] [id number] Nov, [facility] [address] [id number], [place] 191471- [address] Nov, Tear of left glenoid labrum, subsequent encounter S43.432D [facility] [address] [id number] [place] 987620644 Nov, Hypotestosteronism E34.9 [facility] [address] [id number] [place] 611677145 Nov, [facility] [address] [id number] [place] 341019027 Nov, [facility] [address] [id number] [place] 998182687 Nov, Erectile dysfunction, unspecified erectile dysfunction type N52.[address] [facility] [address] [id number] [place] 194706478 Nov, Erectile dysfunction, unspecified erectile dysfunction type N52.9 [facility] [address] [id number] [place] 877759120 Nov, Viral upper respiratory tract infection J06.9 and Erectile dysfunction, unspecified erectile dysfunction type N52.9 [facility] [address] [id number] [place] [id number] Oct, [facility] [address] [id number] [place] 112266376 Oct, [facility] [address] [id number] [place], [place] 72[address]377[address] Oct, Fall on same level due to nature of surface, initial encounter W18.39XA and Erectile dysfunction, unspecified erectile dysfunction type N52.9 [facility] [address] [address]- [address] Sep, [place] [address] [address]- [address] Sep, Tear of left rotator cuff, unspecified tear extent M75.102 and Primary osteoarthritis, 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 [place] [address] 29563- 0233 Aug, Primary osteoarthritis, unspecified site M19.91 [place] [address] 483621- 7212 Jul, [place] [address] 73981- 6979 Jul, Primary osteoarthritis, unspecified site M19.91 [place] [address] [address]- 5863 Jul, Lumbago with sciatica, right side M54.41 [place] [address] 23231- 7647 Jul, Primary osteoarthritis, 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 and Injury of left rotator cuff, subsequent encounter S46.002D [place] [address] 48942- 3915 Jul, [place] [address] [place] [id number] [place] [address]72- 7738 Jul, [place] [address] [place] [id number] [place] [address] 72493- 4469 Jul, [place] [address] 42875- 1011 Jul, Lumbago with sciatica, left side M54.42 ; Lumbago with sciatica, right side M54.41 ; Left shoulder pain, unspecified chronicity M25.512 and Essential hypertension I10 [place] [address] [place] [id number] [place] [address] 38362- 9347 Jun, Lumbago with sciatica, left side M54.42 ; Lumbago with sciatica, right side M54.41 ; Left shoulder pain, unspecified chronicity M25.512 ; Essential hypertension I10 ; Heart murmur previously undiagnosed R01.1 ; Overweight E66.3 ; Anxiety F41.9 and Chronic prescription opiate use Z79.891 [place] [address] 33934- 7004 Jun, Primary osteoarthritis, unspecified site M19.91 [place] [address] 25178- 0901 Jun, [place] [address] [place] [id number] [place] [address] 74591- 4385 May, Primary osteoarthritis, unspecified site M19.91 [place] [address] 46292- 2522 May, Injury of left rotator cuff, subsequent encounter S46.002D [place] [address] [place] [id number] [place] [address] 47923- 8233 May, [place] [address] [place] [id number] [place] [address] 38472- 6876 Apr, [place] [address] [place] [id number] [place] [address] 36645- 8686 Apr, PVD (peripheral vascular disease) I73.9 ; Right leg claudication I73.9 ; Hyperlipidemia, unspecified hyperlipidemia type E78.5 ; Occlusion of femoropopliteal bypass graft, 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 and Essential hypertension I10 [place] [address] 99146- 9489 Apr, Left shoulder pain, unspecified chronicity M25.512 [place] [address] [place] [id number] [place] [address] 03176- 2755 Mar, Left shoulder pain, unspecified chronicity M25.512 [facility] [address]00565100[place], [place] [address] Mar, [facility] [address] [place] [id number] [place] [address] 19069- 9585 Mar, [facility] [address] [place] [address] 46310- 8281 Mar, Dupuytren's contracture of hand M72.0 ; Essential hypertension I10 ; Pure hypercholesterolemia E78.00 ; Primary osteoarthritis, unspecified site M19.91 ; PVD (peripheral vascular disease) I73.9 and Moderate single current episode of major depressive disorder F32.1 [facility] [address] [place] [id number] Feb, Dental examination Z01.20 and Dental caries K02.9 [place] [address] [place] [id number] [place] [address] 25525- 8034 Feb, Primary osteoarthritis, unspecified site M19.91 [facility] [address] [place] [id number] [place] [address] 32242- 0793 Feb, [place] [address] [place] [id number] [place] [address] 21919- 4619 Feb, [facility] [address] [place] [address] 46826- 6823 Nov, [facility] [address] [place] [id number] [place] [address] 73490- 3279 Nov, Dupuytren's contracture of hand M72.0 ; Pure hypercholesterolemia E78.00 ; Essential hypertension I10 ; PVD (peripheral vascular disease) I73.9 ; Primary osteoarthritis, unspecified site M19.91 and Rheumatoid arthritis, involving unspecified site, unspecified rheumatoid factor presence M06.9 [facility] [address]65100[place], [place] [address] Nov, IMMUNIZATIONS No Known Immunizations SOCIAL HISTORY Never Assessed REASON FOR VISIT Medication refill request PLAN OF CARE VITAL SIGNS MEDICATIONS Unknown Medications RESULTS No Results PROCEDURES No Known procedures INSTRUCTIONS MEDICATIONS ADMINISTERED No Known Medications MEDICAL (GENERAL) HISTORY Type Description Date Medical History dupuytren's contracture-hand bilateral Medical History hypertension Medical History hyperlipidemia Medical History Arthritis Medical History peripheral vascular disease Medical History rheumatoid arthritis Surgical History cervical fusion C3-C7 -[facility] 05/2015 Surgical History dupuytren's contracture-bilateral hands Surgical History Artery bypass in right leg Surgical History Occipital bone surgery right side Surgical History surgery near right eye Surgical History [place] Left shoulder replacement 01/13/2018 Hospitalization History Surgery(s) only Hospitalization [facility] [place]- Cold Symptoms 03/03/2018
--- OUTSIDE RECORDS SUMMARY | 2018-12-22 13:59 | XMS REPORT ---
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 Role Phone SINDY LANDAVERDE Unavailable PROBLEMS Type Condition ICD9-CM Code TVR98-N[place] Code Onset Dates Condition Status SNOMED Code Problem Lumbago with sciatica, left side M54.42 Active 094181810 Problem Chronic prescription opiate use Z79.891 Active 778528521 Problem Lumbago with sciatica, right side M54.41 Active 617836367226112 Problem Claustrophobia F40.240 Active 23100579 Problem Essential hypertension I10 Active 94229910 Problem Hypogonadism in male E29.1 Active 98387033 Problem Tear of left rotator cuff, unspecified tear extent M75.102 Active 6175312 Problem Left shoulder pain, unspecified chronicity M25.512 Active 89611891 Problem Hypotestosteronism E34.9 Active 7921517837892 Problem Erectile dysfunction, unspecified erectile dysfunction type N52.9 Active 354995632 Problem Primary osteoarthritis, unspecified site M19.91 Active 287355492 Problem Dupuytren's contracture of hand M72.0 Active 508504990 Problem PVD (peripheral vascular disease) I73.9 Active 852246477 Problem Rheumatoid arthritis, involving unspecified site, unspecified rheumatoid factor presence M06.9 Active 71821229 Problem Right leg claudication I73.9 Active 605498400 Problem Hyperlipidemia, unspecified hyperlipidemia type E78.5 Active 55277237 Problem Pure hypercholesterolemia E78.00 Active 742826886 Problem Primary osteoarthritis, 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 Active 21850001 Problem Moderate single current episode of major depressive disorder F32.1 Active 19122249 Problem Anxiety F41.9 Active 03405190 ALLERGIES No Information ENCOUNTERS Encounter Location Date Diagnosis [facility] [address] [id number][place] [id number] Mar, Claustrophobia F40.[address] [facility] [address] [id number][place] [address]01[address] Mar, Hypotestosteronism E34.9 [facility] [address] [facility] [id number] [place] 7975[address]- [address] Mar, Encounter for pre-operative laboratory testing Z01.[address] [facility] [address] [id number], [place] [address]34[address] Mar, Acute otitis externa of right ear, unspecified type H60.501 ; Hypotestosteronism E34.9 and Encounter for pre-operative laboratory testing Z01.[address] [facility] [address] [id number], [place] 411438[address] Mar, [facility] [address] [id number][place] [id number] Mar, Hypogonadism in male E29.1 and Hypotestosteronism E34.[address] [facility] [address] [id number], [place] 803347358 Mar, Acute otitis externa of right ear, unspecified type H60.[address] [facility] [address] [id number], [place] 288853607 Mar, Hypotestosteronism E34.9 [facility] [address] [facility] [address] [id number], [place] [id number] Feb, [facility] [address] [facility][1] [id number], [place] [id number] Feb, PVD (peripheral vascular disease) I73.9 ; Pure hypercholesterolemia E78.00 and Primary osteoarthritis, unspecified site M19.[address] [facility] [address] [id number], [place] 168630229 Feb, Hypotestosteronism E34.[address] [facility] [address] [id number], [place] [id number] Feb, Upper respiratory infection, viral J06.[address] [facility] [address] [id number] [place] [address] Feb, Hypotestosteronism E34.9 [facility] [address] [facility][1] [id number], [place] [id number] January, [facility] [address] [id number], [place] 586221155 January, Hypotestosteronism E34.9 [facility] [address] [facility] [address] [id number], [place] [id number] January, Hypotestosteronism E34.9 [facility] [place] [place] [address] [facility][1] [id number], [place] 802652569 Dec, [facility] [address] [facility] [address] [id number], [place] 996265570 Dec, Erectile dysfunction, unspecified erectile dysfunction type N52.9 [facility] [address] [place] [id number], [place] [address]8746[address] Dec, [facility] [address]65[address], [place] [address] Dec, Pre-operative cardiovascular examination Z01.810 ; PVD (peripheral vascular disease) I73.9 ; Anxiety F41.9 ; Rheumatoid arthritis, involving unspecified site, unspecified rheumatoid factor presence M06.9 ; Essential hypertension I10 ; Hyperlipidemia, unspecified hyperlipidemia type E78.5 and Hypotestosteronism E34.9 [facility] [address] [id number], [place] [id number] Dec, [facility] [address] [id number], [place] 774182691 Dec, Erectile dysfunction, unspecified erectile dysfunction type N52.9 and Hypotestosteronism E34.9 [facility] [address] [id number], [place] 94[address]76228 Dec, Hypotestosteronism E34.9 [facility] [address] [facility][1] [id number], [place] [id number] Nov, [facility] [address] [place] [id number] [address] Nov, Hypotestosteronism E34.9 [facility] [address] [facility][1] [id number], [place] 351290503 Nov, Pure hypercholesterolemia E78.00 and Primary osteoarthritis, unspecified site M19.[address] [facility] [address] [id number], [place] 694592782 Nov, [facility] [address] [facility] [id number], [place] 559935- 1487 Nov, Tear of left glenoid labrum, subsequent encounter S43.432D [facility] [address] [id number], [place] 864442082 Nov, Hypotestosteronism E34.9 [facility] [address] [id number], [place] 188055739 Nov, [facility] [address] [id number], [place] 921121927 Nov, [facility] [address] [id number], [place] [id number] Nov, Erectile dysfunction, unspecified erectile dysfunction type N52.[address] [facility] [address] [id number], [place] 372336599 Nov, Erectile dysfunction, unspecified erectile dysfunction type N52.9 [facility] [address] [id number], [place] 199388219 Nov, Viral upper respiratory tract infection J06.9 and Erectile dysfunction, unspecified erectile dysfunction type N52.9 [facility] [address] [id number], [place] [id number] Oct, [facility] [address] [id number], [place] 505936873 Oct, [facility] [address] [id number], [place] 885317674 Oct, Fall on same level due to nature of surface, initial encounter W18.39XA and Erectile dysfunction, unspecified erectile dysfunction type N52.9 [facility] [address] [address]88- 3504 Sep, [place] [address] 30690- 5371 Sep, Tear of left rotator cuff, unspecified tear extent M75.102 and Primary osteoarthritis, 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 [place] [address] 16465- 0586 Aug, Primary osteoarthritis, unspecified site M19.91 [place] [address] 719567- 1761 Jul, [place] [address] 04228- 1042 Jul, Primary osteoarthritis, unspecified site M19.91 [place] [address] 88232- 8983 Jul, Lumbago with sciatica, right side M54.41 [place] [address] 18520- 0759 Jul, Primary osteoarthritis, 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 and Injury of left rotator cuff, subsequent encounter S46.002D [place] [address] 42742- 0647 Jul, [place] [address] [place] [id number] [place] [address] 39646- 0545 Jul, [place] [address] [place] [id number] [place] [address] 48761- 0686 Jul, [place] [address] 55813- 8137 Jul, Lumbago with sciatica, left side M54.42 ; Lumbago with sciatica, right side M54.41 ; Left shoulder pain, unspecified chronicity M25.512 and Essential hypertension I10 [place] [address] [place] [id number] [place] [address] 93392- 3238 Jun, Lumbago with sciatica, left side M54.42 ; Lumbago with sciatica, right side M54.41 ; Left shoulder pain, unspecified chronicity M25.512 ; Essential hypertension I10 ; Heart murmur previously undiagnosed R01.1 ; Overweight E66.3 ; Anxiety F41.9 and Chronic prescription opiate use Z79.891 [place] [address] 47219- 5087 Jun, Primary osteoarthritis, unspecified site M19.91 [place] [address] 12014- 4777 Jun, [place] [address] [place] [id number] [place] [address] 23154- 2225 May, Primary osteoarthritis, unspecified site M19.91 [place] [address] 78645- 3912 May, Injury of left rotator cuff, subsequent encounter S46.002D [place] [address] [place] [id number] [place] [address] 00592- 0314 May, [place] [address] [place] [id number] [place] [address] 67508- 6116 Apr, [place] [address] [place] [id number] [place] [address] 60135- 1973 Apr, PVD (peripheral vascular disease) I73.9 ; Right leg claudication I73.9 ; Hyperlipidemia, unspecified hyperlipidemia type E78.5 ; Occlusion of femoropopliteal bypass graft, 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 and Essential hypertension I10 [place] [address] 85861- 1558 Apr, Left shoulder pain, unspecified chronicity M25.512 [place] [address] [place] [id number] [place] [address] 24128- 0943 Mar, Left shoulder pain, unspecified chronicity M25.512 [facility] [address]00565100[place], [place] [address]- 6589 Mar, [facility] [address] [place] [id number] [place] [address] 96860- 8095 Mar, [facility] [address] [place] [address] 45083- 0882 Mar, Dupuytren's contracture of hand M72.0 ; Essential hypertension I10 ; Pure hypercholesterolemia E78.00 ; Primary osteoarthritis, unspecified site M19.91 ; PVD (peripheral vascular disease) I73.9 and Moderate single current episode of major depressive disorder F32.1 [facility] [address] [place] [id number] [place] [address] [id number] Feb, Dental examination Z01.20 and Dental caries K02.9 [place] [address] [place] [id number] [place] [address] 63139- 5645 Feb, Primary osteoarthritis, unspecified site M19.91 [facility] [address] [place] [id number] [place] [address] 71509- 6483 Feb, [place] [address] [place] [id number] [place] [address] 47888- 8680 Feb, [facility] [address] [place] [address] 11587- 1351 Nov, [facility] [address] [place] [id number] [place] [address] 91227- 5423 Nov, Dupuytren's contracture of hand M72.0 ; Pure hypercholesterolemia E78.00 ; Essential hypertension I10 ; PVD (peripheral vascular disease) I73.9 ; Primary osteoarthritis, unspecified site M19.91 and Rheumatoid arthritis, involving unspecified site, unspecified rheumatoid factor presence M06.9 [facility] [address]65100[place], [place] [address]- 2921 Nov, IMMUNIZATIONS No Known Immunizations SOCIAL HISTORY [...] History surgery near right eye Surgical History [place] Left shoulder replacement 01/13/2018 Hospitalization History Surgery(s) only Hospitalization History [facility] [place]- Cold Symptoms 03/03/2018
--- OUTSIDE RECORDS SUMMARY | 2018-12-22 14:00 | XMS REPORT ---
Author Author SINDY LANDAVERDE Organization [facility] Address [address] [place] [address] Care Team Providers Care Weather Algorithm Scientist Name Role Phone MARCELONOLANBIANKA SINDY Unavailable PROBLEMS Type Condition ICD9-CM Code LJE97-AV Code Onset Dates Condition Status SNOMED Code Problem Anxiety F41.9 Active 92739657 Problem Lumbago with sciatica, right side M54.41 Active 193749792184009 Problem Lumbago with sciatica, left side M54.42 Active 690170071 Problem Hypogonadism in male E29.1 Active 53981878 Problem Hypotestosteronism E34.9 Active 2610566725108 Problem Left shoulder pain, unspecified chronicity M25.512 Active 67679346 Problem Chronic prescription opiate use Z79.891 Active 328819877 Problem Erectile dysfunction, unspecified erectile dysfunction type N52.9 Active 413620010 Problem Tear of left rotator cuff, unspecified tear extent M75.102 Active 1623990 Problem Rheumatoid arthritis, involving unspecified site, unspecified rheumatoid factor presence M06.9 Active 38547976 Problem Primary osteoarthritis, unspecified site M19.91 Active 946046173 Problem Essential hypertension I10 Active 74231633 Problem PVD (peripheral vascular disease) I73.9 Active 268827772 Problem Moderate single current episode of major depressive disorder F32.1 Active 06285423 Problem Right leg claudication I73.9 Active 213991151 Problem Dupuytren's contracture of hand M72.0 Active 276131978 Problem Hyperlipidemia, unspecified hyperlipidemia type E78.5 Active 90430693 Problem Pure hypercholesterolemia E78.00 Active 198420221 Problem Primary osteoarthritis, 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 Active 18336185 ALLERGIES No Information ENCOUNTERS Encounter Location Date Diagnosis [facility] [address] [facility] [id number], [place] [address] Mar, Encounter for pre-operative laboratory testing Z01.[address] [facility] [address] [id number] [place] [id number] Mar, Acute otitis externa of right ear, unspecified type H60.501 ; Hypotestosteronism E34.9 and Encounter for pre-operative laboratory testing Z01.[address] [facility] [address] [id number] [id number] Mar, [facility] [address] [id number][place] [id number] Mar, Hypogonadism in male E29.1 and Hypotestosteronism E34.[address] [facility] [address] [id number][place] [id number] Mar, Acute otitis externa of right ear, unspecified type H60.[address] [facility] [address] [id number][place] [id number] Mar, Hypotestosteronism E34.[address] [facility] [address] [id number][place] [id number] Feb, [facility] [id number] [id number] Feb, PVD (peripheral vascular disease) I73.9 ; Pure hypercholesterolemia E78.00 and Primary osteoarthritis, unspecified site M19.[address] [facility] [address] [id number][place] [id number] Feb, Hypotestosteronism E34.[address] [facility] [address] [id number][place] [id number] Feb, Upper respiratory infection, viral J06.[address] [facility] [address] [id number][place] [id number] Feb, Hypotestosteronism E34.9 [facility] [address] [facility] [id number] [id number] January, [facility] [address] [id number][place] [id number] January, Hypotestosteronism E34.9 [facility] [address] [id number][place] [id number] January, Hypotestosteronism E34.9 [facility] [address] [facility] [id number][place] [id number] Dec, [facility] [address] [id number], [place] [id number] Dec, Erectile dysfunction, unspecified erectile dysfunction type N52.9 [facility] [address] [facility] [id number][place] [id number] Dec, [facility] [address]00565100[place] [address] Dec, Pre-operative cardiovascular examination Z01.810 ; PVD (peripheral vascular disease) I73.9 ; Anxiety F41.9 ; Rheumatoid arthritis, involving unspecified site, unspecified rheumatoid factor presence M06.9 ; Essential hypertension I10 ; Hyperlipidemia, unspecified hyperlipidemia type E78.5 and Hypotestosteronism E34.[address] [facility] [address] [id number][place] [id number] Dec, [facility] [address] [id number][place] [address] Dec, Erectile dysfunction, unspecified erectile dysfunction type N52.9 and Hypotestosteronism E34.[address] [facility] [address] [id number][place] [id number] Dec, Hypotestosteronism E34.9 [facility] [address] [facility] [id number][place] [id number] Nov, [facility] [address] [facility] [id number], [place] [address] Nov, Hypotestosteronism E34.9 [facility] [address] [facility] [id number] [id number] Nov, Pure hypercholesterolemia E78.00 and Primary osteoarthritis, unspecified site M19.[address] [facility] [address] [id number], [place] [id number] Nov, [facility] [address] [facility] [id number], [place] [address] Nov, Tear of left glenoid labrum, subsequent encounter S43.432D [facility] [address] [id number], [place] [id number] Nov, Hypotestosteronism E34.9 [facility] [address] [id number], [place] [id number] Nov, [facility] [address] [id number], [place] [id number] Nov, 2017 [facility] [address] [id number][place] [id number] Nov, Erectile dysfunction, unspecified erectile dysfunction type N52.9 [facility] [address] [id number], [place] [address] Nov, Erectile dysfunction, unspecified erectile dysfunction type N52.9 [facility] [address] [id number][place] [id number] Nov, Viral upper respiratory tract infection J06.9 and Erectile dysfunction, unspecified erectile dysfunction type N52.9 [facility] [address] [id number], [place] [id number] Oct, [facility] [address] [id number], [place] [id number] Oct, [facility] [address] [id number] [place] [address] Oct, Fall on same level due to nature of surface, initial encounter W18.39XA and Erectile dysfunction, unspecified erectile dysfunction type N52.9 [facility] [address] [facility] [id number], [place] [id number] Sep, [facility] [address] [facility] [id number], [place] [address] Sep, Tear of left rotator cuff, unspecified tear extent M75.102 and Primary osteoarthritis, 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 [place] [id number] [place] [address] Aug, Primary osteoarthritis, unspecified site M19.91 [facility] [id number] [place] [address] Jul, [place] [address] [address] Jul, Primary osteoarthritis, unspecified site M19.91 [place] [id number] [place] [address] Jul, Lumbago with sciatica, right side M54.41 [place] [id number] [place] [address] Jul, Primary osteoarthritis, 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 and Injury of left rotator cuff, subsequent encounter S46.002D [place] [id number] [place] [address] Jul, [place] [id number] [place] [address] Jul, [place] [id number] [place] [address] Jul, [place] [id number] [place] [address] Jul, Lumbago with sciatica, left side M54.42 ; Lumbago with sciatica, right side M54.41 ; Left shoulder pain, unspecified chronicity M25.512 and Essential hypertension I10 [place] [id number] [place] [address] Jun, Lumbago with sciatica, left side M54.42 ; Lumbago with sciatica, right side M54.41 ; Left shoulder pain, unspecified chronicity M25.512 ; Essential hypertension I10 ; Heart murmur previously undiagnosed R01.1 ; Overweight E66.3 ; Anxiety F41.9 and Chronic prescription opiate use Z79.891 [place] [id number] [place] [address] Jun, Primary osteoarthritis, unspecified site M19.91 [facility] [id number] [place] [address] Jun, [place] [id number] [place] [address] May, Primary osteoarthritis, unspecified site M19.91 [place] [id number] [place] [address] May, Injury of left rotator cuff, subsequent encounter S46.002D [place] [id number] [place] [address] May, [place] [id number] [place] [address]52[address] Apr, [place] [id number] [place] [address]85[address] Apr, PVD (peripheral vascular disease) I73.9 ; Right leg claudication I73.9 ; Hyperlipidemia, unspecified hyperlipidemia type E78.5 ; Occlusion of femoropopliteal bypass graft, 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 and Essential hypertension I10 [place] [id number] [place] [address]20[address] Apr, Left shoulder pain, unspecified chronicity M25.512 [place] [id number] [place] [address] Mar, Left shoulder pain, unspecified chronicity M25.512 [place] [id number] [place] [address]73[address] 0[address] Mar, [place] [id number] [place] [address] 3[address] Mar, [place] [address] [address] Mar, Dupuytren's contracture of hand M72.0 ; Essential hypertension I10 ; Pure hypercholesterolemia E78.00 ; Primary osteoarthritis, unspecified site M19.91 ; PVD (peripheral vascular disease) I73.9 and Moderate single current episode of major depressive disorder F32.1 [facility] [address] [id number] [address] Feb, Dental examination Z01.20 and Dental caries K02.9 [facility] [id number] [place] [address]10[address] Feb, Primary osteoarthritis, unspecified site M19.91 [place] [id number] [place] [address] 5[address] Feb, [place] [id number] [place] [address] 19766[address] 3886 Feb, [place] [id number] [place] [address] 18[address] 1719 Nov, [facility] [id number] [place] [address] 74611- 8964 Nov, Dupuytren's contracture of hand M72.0 ; Pure hypercholesterolemia E78.00 ; Essential hypertension I10 ; PVD (peripheral vascular disease) I73.9 ; Primary osteoarthritis, unspecified site M19.91 and Rheumatoid arthritis, involving unspecified site, unspecified rheumatoid factor presence M06.9 [place] [id number] [place] [address]818[address] 3[address] Nov, IMMUNIZATIONS No Known Immunizations SOCIAL HISTORY Never Assessed REASON FOR VISIT labs-[facility] PLAN OF CARE VITAL SIGNS MEDICATIONS Unknown Medications RESULTS Name Result Date Reference Range FSH, SERUM 2017-11-25 FSH 4.1 1.6-8.0 LH 2017-11-25 LH 1.7 1.5-9.3 TESTOSTERONE, FREE AND TOTAL 2017-11-25 TESTOSTERONE, TOTAL, LC/MS/MS [phone] TESTOSTERONE, FREE 23.9 46.0-224.0 TESTOSTERONE,BIOAVAILABLE 47.0 110.0-575.0 SEX HORMONE BINDING GLOBULIN 28 22-77 ALBUMIN,SERUM 4.3 3.6-5.1 PROCEDURES Procedure Date Ordered Result Body Site [facility] November 25, 2017 ALEXANDER, LILLIAM* November 25, 2017 INSTRUCTIONS MEDICATIONS ADMINISTERED No Known Medications MEDICAL (GENERAL) HISTORY Type Description Date Medical History dupuytren's contracture-hand bilateral Medical History hypertension Medical History hyperlipidemia Medical History Arthritis Medical History peripheral vascular disease Medical History rheumatoid arthritis Surgical History cervical fusion C3-C7 -[facility] 05/2015 Surgical History dupuytren's contracture-bilateral hands Surgical History Artery bypass in right leg Surgical History Occipital bone surgery right side Surgical History surgery near right eye Surgical History [place] Left shoulder replacement 01/13/2018 Hospitalization History Surgery(s) only Hospitalization History [facility] [place]- Cold Symptoms 03/03/2018
--- OUTSIDE RECORDS SUMMARY | 2018-12-22 14:00 | XMS REPORT ---
Author Author SINDY LANDAVERDE Organization [facility] Address [address] [place] [address] Care Team Providers Care Wash Worker Name Role Phone SINDY LANDAVERDE Unavailable PROBLEMS Type Condition ICD9-CM Code HLY74-XY Code Onset Dates Condition Status SNOMED Code Problem Lumbago with sciatica, left side M54.42 Active 196355524 Problem Chronic prescription opiate use Z79.891 Active 946791447 Problem Lumbago with sciatica, right side M54.41 Active 905564277375589 Problem Claustrophobia F40.240 Active 10367538 Problem Essential hypertension I10 Active 62253605 Problem Hypogonadism in male E29.1 Active 56307250 Problem Tear of left rotator cuff, unspecified tear extent M75.102 Active 3730184 Problem Left shoulder pain, unspecified chronicity M25.512 Active 01854429 Problem Hypotestosteronism E34.9 Active 8234185811736 Problem Erectile dysfunction, unspecified erectile dysfunction type N52.9 Active 583772047 Problem Primary osteoarthritis, unspecified site M19.91 Active 743718686 Problem Dupuytren's contracture of hand M72.0 Active 233321296 Problem PVD (peripheral vascular disease) I73.9 Active 910864722 Problem Rheumatoid arthritis, involving unspecified site, unspecified rheumatoid factor presence M06.9 Active 38682018 Problem Right leg claudication I73.9 Active 900317865 Problem Hyperlipidemia, unspecified hyperlipidemia type E78.5 Active 76277620 Problem Pure hypercholesterolemia E78.00 Active 776235555 Problem Primary osteoarthritis, 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 Active 72039347 Problem Moderate single current episode of major depressive disorder F32.1 Active 95266502 Problem Anxiety F41.9 Active 57649362 ALLERGIES No Information ENCOUNTERS Encounter Location Date Diagnosis [facility] [address] [id number][place] [id number] Mar, Claustrophobia F40.[address] [facility] [address] [id number] [place] [id number] Mar, Hypotestosteronism E34.9 [facility] [address] [facility] [id number] [place] [address] Mar, Encounter for pre-operative laboratory testing Z01.[address] [facility] [address] [id number] [place] [id number] Mar, Acute otitis externa of right ear, unspecified type H60.501 ; Hypotestosteronism E34.9 and Encounter for pre-operative laboratory testing Z01.[address] [facility] [address] [id number] [place] [id number] Mar, [facility] [address] [id number] [place] [id number] Mar, Hypogonadism in male E29.1 and Hypotestosteronism E34.[address] [facility] [address] [id number] [place] [id number] Mar, Acute otitis externa of right ear, unspecified type H60.[address] [facility] [address] [id number] [place] [id number] Mar, Hypotestosteronism E34.9 [facility] [address] [address] [facility] [address] [id number] [place] [id number] Feb, [facility] [place] [address] [facility] [id number][place] [id number] Feb, PVD (peripheral vascular disease) I73.9 ; Pure hypercholesterolemia E78.00 and Primary osteoarthritis, unspecified site M19.[address] [facility] [address] [id number] [place] [id number] Feb, Hypotestosteronism E34.[address] [facility] [address] [id number] [place] [id number] Feb, Upper respiratory infection, viral J06.[address] [facility] [address] [id number] [place] [id number] Feb, Hypotestosteronism E34.9 [facility] [place] [address] [facility] [id number], [place] [id number] January, [facility] [address] [id number] [place] [id number] January, Hypotestosteronism E34.9 [facility] [address] [address] [facility] [address] [id number] [place] [id number] January, Hypotestosteronism E34.9 [facility] [place] [address] [facility] [id number], [place] [address] Dec, [facility] [address] [facility] [address] [id number] [place] [id number] Dec, Erectile dysfunction, unspecified erectile dysfunction type N52.9 [facility] [address] [id number] [id number] Dec, [facility] [address]65[place] [address] Dec, Pre-operative cardiovascular examination Z01.810 ; PVD (peripheral vascular disease) I73.9 ; Anxiety F41.9 ; Rheumatoid arthritis, involving unspecified site, unspecified rheumatoid factor presence M06.9 ; Essential hypertension I10 ; Hyperlipidemia, unspecified hyperlipidemia type E78.5 and Hypotestosteronism E34.9 [facility] [address] [id number] [place] [id number] Dec, [facility] [address] [id number] [place] [id number] Dec, Erectile dysfunction, unspecified erectile dysfunction type N52.9 and Hypotestosteronism E34.9 [facility] [address] [id number] [place] [id number] Dec, Hypotestosteronism E34.9 [facility] [address] [facility] [id number], [place] [id number] Nov, [facility] [address] [place], [place] [id number] [address] Nov, Hypotestosteronism E34.9 [facility] [place] [address] [facility] [id number][place] [id number] Nov, Pure hypercholesterolemia E78.00 and Primary osteoarthritis, unspecified site M19.[address] [facility] [address] [id number] [place] [id number] Nov, [facility] [address] [facility] [id number], [place] [address] Nov, Tear of left glenoid labrum, subsequent encounter S43.432D [facility] [address] [id number] [place] [id number] Nov, Hypotestosteronism E34.9 [facility] [address] [id number] [place] [id number] Nov, [facility] [address] [id number] [place] [id number] Nov, [facility] [address] [id number] [place] [id number] Nov, Erectile dysfunction, unspecified erectile dysfunction type N52.[address] [facility] [address] [id number] [place] [id number] Nov, Erectile dysfunction, unspecified erectile dysfunction type N52.9 [facility] [address] [id number] [place] [id number] Nov, Viral upper respiratory tract infection J06.9 and Erectile dysfunction, unspecified erectile dysfunction type N52.9 [facility] [address] [id number] [place] [id number] Oct, [facility] [address] [id number] [place] [id number] Oct, [facility] [address] [id number] [place] [id number] Oct, Fall on same level due to nature of surface, initial encounter W18.39XA and Erectile dysfunction, unspecified erectile dysfunction type N52.9 [facility] [address] [address] Sep, [place] [address] [address] Sep, Tear of left rotator cuff, unspecified tear extent M75.102 and Primary osteoarthritis, 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 [place] [address] [address] Aug, Primary osteoarthritis, unspecified site M19.91 [place] [address] [address] Jul, [place] [address] [address] Jul, Primary osteoarthritis, unspecified site M19.91 [place] [address] [address] Jul, Lumbago with sciatica, right side M54.41 [place] [address] [address] Jul, Primary osteoarthritis, 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 and Injury of left rotator cuff, subsequent encounter S46.002D [place] [address] [address] Jul, [place] [address] [place] [id number] [place] [address] Jul, [place] [address] [place] [id number] [place] [address] Jul, [place] [address] [address] Jul, Lumbago with sciatica, left side M54.42 ; Lumbago with sciatica, right side M54.41 ; Left shoulder pain, unspecified chronicity M25.512 and Essential hypertension I10 [place] [address] [place] [id number] [place] [address] Jun, Lumbago with sciatica, left side M54.42 ; Lumbago with sciatica, right side M54.41 ; Left shoulder pain, unspecified chronicity M25.512 ; Essential hypertension I10 ; Heart murmur previously undiagnosed R01.1 ; Overweight E66.3 ; Anxiety F41.9 and Chronic prescription opiate use Z79.891 [place] [address] [address] Jun, Primary osteoarthritis, unspecified site M19.91 [place] [address] [address] Jun, [place] [address] [place] [id number] [place] [address] May, Primary osteoarthritis, unspecified site M19.91 [place] [address] [address] May, Injury of left rotator cuff, subsequent encounter S46.002D [place] [address] [place] [id number] [place] [address] May, [place] [address] [place] [id number] [place] [address] Apr, [place] [address] [place] [id number] [place] [address] Apr, PVD (peripheral vascular disease) I73.9 ; Right leg claudication I73.9 ; Hyperlipidemia, unspecified hyperlipidemia type E78.5 ; Occlusion of femoropopliteal bypass graft, 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 and Essential hypertension I10 [place] [address] [address] Apr, Left shoulder pain, unspecified chronicity M25.512 [place] [address] [place] [id number] [place] [address] Mar, Left shoulder pain, unspecified chronicity M25.512 [facility] [address] [address] Mar, [facility] [address] [place] [id number] [place] [address] Mar, [facility] [address] [place] [address] Mar, Dupuytren's contracture of hand M72.0 ; Essential hypertension I10 ; Pure hypercholesterolemia E78.00 ; Primary osteoarthritis, unspecified site M19.91 ; PVD (peripheral vascular disease) I73.9 and Moderate single current episode of major depressive disorder F32.1 [facility] [address] [place] [id number] Feb, Dental examination Z01.20 and Dental caries K02.9 [place] [address] [place] [id number] [place] [address] Feb, Primary osteoarthritis, unspecified site M19.91 [facility] [address] [place] [id number] [place] [address] Feb, [place] [address] [place] [id number] [place] [address] Feb, [facility] [address] [place] [address] Nov, [facility] [address] [place] [id number] [place] [address] Nov, Dupuytren's contracture of hand M72.0 ; Pure hypercholesterolemia E78.00 ; Essential hypertension I10 ; PVD (peripheral vascular disease) I73.9 ; Primary osteoarthritis, unspecified site M19.91 and Rheumatoid arthritis, involving unspecified site, unspecified rheumatoid factor presence M06.9 [facility] [address], [place] [address] Nov, IMMUNIZATIONS No Known Immunizations SOCIAL HISTORY Never Assessed REASON FOR VISIT medication questions PLAN OF CARE VITAL SIGNS MEDICATIONS Medication Instructions Dosage Frequency Start Date End Date Duration Status Diazepam 10 mg Orally once, 30-60 min before procedure 1 tablet as needed Nov, 1 dose Active RESULTS No Results PROCEDURES [...] History surgery near right eye Surgical History [place] Left shoulder replacement 01/13/2018 Hospitalization History Surgery(s) only Hospitalization [facility] [place]- Cold Symptoms 03/03/2018
--- OUTSIDE RECORDS SUMMARY | 2018-12-22 14:00 | XMS REPORT ---
Author Author LOYDA RUBIO [facility] Address [address] [place] [address] Care Team Providers Care Professor Of Rhetoric Name Role Phone LOYDA RUBIO Unavailable PROBLEMS Type Condition ICD9-CM Code [id number] Code Onset Dates Condition Status SNOMED Code Problem Anxiety F41.9 Active 70879714 Problem Lumbago with sciatica, right side M54.41 Active 859617912983062 Problem Lumbago with sciatica, left side M54.42 Active 122323971 Problem Hypogonadism in male E29.1 Active 42620712 Problem Hypotestosteronism E34.9 Active 4969311508720 Problem Left shoulder pain, unspecified chronicity M25.512 Active 25304780 Problem Chronic prescription opiate use Z79.891 Active 864951148 Problem Erectile dysfunction, unspecified erectile dysfunction type N52.9 Active 895449077 Problem Tear of left rotator cuff, unspecified tear extent M75.102 Active 7480694 Problem Rheumatoid arthritis, involving unspecified site, unspecified rheumatoid factor presence M06.9 Active 42763316 Problem Primary osteoarthritis, unspecified site M19.91 Active 602686580 Problem Essential hypertension I10 Active 18853412 Problem PVD (peripheral vascular disease) I73.9 Active 540783329 Problem Moderate single current episode of major depressive disorder F32.1 Active 45240586 Problem Right leg claudication I73.9 Active 601118814 Problem Dupuytren's contracture of hand M72.0 Active 729072206 Problem Hyperlipidemia, unspecified hyperlipidemia type E78.5 Active 29689549 Problem Pure hypercholesterolemia E78.00 Active 673067245 Problem Primary osteoarthritis, 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 [address] [id number] [place] [id number] Mar, Acute otitis externa of right ear, unspecified type H60.501 ; Hypotestosteronism E34.9 and Encounter for pre-operative laboratory testing Z01.[address] [facility] [address] [id number] [place] [id number] Mar, [facility] [address] [id number] [place] [id number] Mar, Hypogonadism in male E29.1 and Hypotestosteronism E34.[address] [facility] [address] [id number] [place] [id number] Mar, Acute otitis externa of right ear, unspecified type H60.[address] [facility] [address] [id number] [place] [id number] Mar, Hypotestosteronism E34.[address] [facility] [address] [id number] [place] [id number] Feb, [facility] [place] [address] [id number] [place] [id number] Feb, PVD (peripheral vascular disease) I73.9 ; Pure hypercholesterolemia E78.00 and Primary osteoarthritis, unspecified site M19.[address] [facility] [address] [id number] [place] [id number] Feb, Hypotestosteronism E34.[address] [facility] [address] [id number] [place] [id number] Feb, Upper respiratory infection, viral J06.9 [facility] [address] [address] [id number] [place] [id number] Feb, Hypotestosteronism E34.9 [facility] [address] [facility] [id number] [place]ILL[place] [id number] January, [facility] [address] [id number] [place] [id number] January, Hypotestosteronism E34.[address] [facility] [address] [id number] [place] [id number] January, Hypotestosteronism E34.9 [facility] [address] [facility] [id number] [place] [id number] Dec, [facility] [address] [id number] [place] [id number] Dec, Erectile dysfunction, unspecified erectile dysfunction type N52.9 [facility] [address] [facility] [id number] [place]ILL[place] [id number] Dec, [facility] [place] [id number] [address] Dec, Pre-operative cardiovascular examination Z01.810 ; PVD (peripheral vascular disease) I73.9 ; Anxiety F41.9 ; Rheumatoid arthritis, involving unspecified site, unspecified rheumatoid factor presence M06.9 ; Essential hypertension I10 ; Hyperlipidemia, unspecified hyperlipidemia type E78.5 and Hypotestosteronism E34.[address] [facility] [address] [id number] [place] [id number] Dec, [facility] [address] [id number] [place] [id number] Dec, Erectile dysfunction, unspecified erectile dysfunction type N52.9 and Hypotestosteronism E34.[address] [facility] [address] [id number] [place] [id number] Dec, Hypotestosteronism E34.9 [facility] [address] [facility] [id number] [place]ILL[place] [id number] Nov, [facility] [address] [facility] [id number][place] [id number] Nov, Hypotestosteronism E34.9 [facility] [address] [facility] [id number] [place] [id number] Nov, Pure hypercholesterolemia E78.00 and Primary osteoarthritis, unspecified site M19.[address] [facility] [address] [id number] [place] [id number] Nov, [facility] [address] [facility] [id number][place] [address] Nov, Tear of left glenoid labrum, subsequent encounter S43.432D [facility] [address] [id number] [place] [id number] Nov, Hypotestosteronism E34.9 [facility] [address] [id number] [place] [id number] Nov, [facility] [address] [id number] [place] [id number] Nov, [facility] [address] [id number] [place] [id number] Nov, Erectile dysfunction, unspecified erectile dysfunction type N52.9 [facility] [address] [id number] [place] [id number] Nov, Erectile dysfunction, unspecified erectile dysfunction type N52.9 [facility] [address] [id number] [place] [id number] Nov, Viral upper respiratory tract infection J06.9 and Erectile dysfunction, unspecified erectile dysfunction type N52.9 [facility] [address] [id number] [place] [id number] Oct, [facility] [address] [id number] [place] [id number] Oct, [facility] [address] [id number] [place] [id number] Oct, Fall on same level due to nature of surface, initial encounter W18.39XA and Erectile dysfunction, unspecified erectile dysfunction type N52.9 [facility] [address] [facility] [id number][place] [address] Sep, [facility] [address] [facility] [id number][place] [address] Sep, Tear of left rotator cuff, unspecified tear extent M75.102 and Primary osteoarthritis, 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 and Injury of left rotator cuff, subsequent encounter S46.002D [place] [address] [address] Jul, [place] [id number] [place] [address] Jul, [place] [id number] [place] [address] Jul, [place] [id number] [place] [address] Jul, Lumbago with sciatica, left side M54.42 ; Lumbago with sciatica, right side M54.41 ; Left shoulder pain, unspecified chronicity M25.512 and Essential hypertension I10 [place] [id number] [place] [address] Jun, Lumbago with sciatica, left side M54.42 ; Lumbago with sciatica, right side M54.41 ; Left shoulder pain, unspecified chronicity M25.512 ; Essential hypertension I10 ; Heart murmur previously undiagnosed R01.1 ; Overweight E66.3 ; Anxiety F41.9 and Chronic prescription opiate use Z79.891 [place] [id number] [place] [address] Jun, Primary osteoarthritis, unspecified site M19.91 [facility] [id number] [place] [address] Jun, [place] [id number] [place] [address] May, Primary osteoarthritis, unspecified site M19.91 [place] [id number] [place] [address] May, Injury of left rotator cuff, subsequent encounter S46.002D [place] [id number] [place] [address] May, [place] [id number] [place] [address] Apr, [place] [id number] [place] [address] Apr, PVD (peripheral vascular disease) I73.9 ; Right leg claudication I73.9 ; Hyperlipidemia, unspecified hyperlipidemia type E78.5 ; Occlusion of femoropopliteal bypass graft, 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 and Essential hypertension I10 [place] [id number] [place] [address] Apr, Left shoulder pain, unspecified chronicity M25.512 [place] [id number] [place] [address] Mar, Left shoulder pain, unspecified chronicity M25.512 [place] [id number] [place] [address] Mar, [place] [id number] [place] [address] Mar, [place] [id number] [place] [address] Mar, Dupuytren's contracture of hand M72.0 ; Essential hypertension I10 ; Pure hypercholesterolemia E78.00 ; Primary osteoarthritis, unspecified site M19.91 ; PVD (peripheral vascular disease) I73.9 and Moderate single current episode of major depressive disorder F32.1 [facility] [address] [id number] [id number] Feb, Dental examination Z01.20 and Dental caries K02.9 [facility] [id number] [place] [address] Feb, Primary osteoarthritis, unspecified site M19.91 [place] [id number] [place] [address] Feb, [place] [id number] [place] [address] Feb, [facility] [id number] [place] [address] Nov, [facility] [id number] [place] [address] Nov, Dupuytren's contracture of hand M72.0 ; Pure hypercholesterolemia E78.00 ; Essential hypertension I10 ; PVD (peripheral vascular disease) I73.9 ; Primary osteoarthritis, unspecified site M19.91 and Rheumatoid arthritis, involving unspecified site, unspecified rheumatoid factor presence M06.9 [facility] [address] [place] [address] Nov, IMMUNIZATIONS No Known Immunizations SOCIAL HISTORY Never Assessed REASON FOR VISIT needs lab/low testosterone PLAN OF CARE VITAL SIGNS MEDICATIONS Unknown Medications RESULTS No Results PROCEDURES No Known procedures INSTRUCTIONS MEDICATIONS ADMINISTERED No Known Medications MEDICAL (GENERAL) HISTORY Type Description Date Medical History dupuytren's contracture-hand bilateral Medical History hypertension Medical History hyperlipidemia Medical History Arthritis Medical History peripheral vascular disease Medical History rheumatoid arthritis Surgical History cervical fusion C3-C7 -[facility] 05/2015 Surgical History dupuytren's contracture-bilateral hands Surgical History Artery bypass in right leg Surgical History Occipital bone surgery right side Surgical History surgery near right eye Surgical History [facility] Left shoulder replacement 01/13/2018 Hospitalization History Surgery(s) only Hospitalization History [facility]- Cold Symptoms 03/03/2018
--- OUTSIDE RECORDS SUMMARY | 2018-12-22 14:01 | XMS REPORT ---
Author Author LOYDA RUBIO [facility] Address [address] [place] [address] Care Team Providers Care Airplane Captain Name Role Phone LOYDA RUBIO Unavailable PROBLEMS Type Condition ICD9-CM Code LRV90-FI Code Onset Dates Condition Status SNOMED Code Problem Anxiety F41.9 Active 23426789 Problem Lumbago with sciatica, right side M54.41 Active 650283134427498 Problem Lumbago with sciatica, left side M54.42 Active 534564020 Problem Hypogonadism in male E29.1 Active 38892335 Problem Hypotestosteronism E34.9 Active 2633306061145 Problem Left shoulder pain, unspecified chronicity M25.512 Active 31135772 Problem Chronic prescription opiate use Z79.891 Active 355395650 Problem Erectile dysfunction, unspecified erectile dysfunction type N52.9 Active 462851509 Problem Tear of left rotator cuff, unspecified tear extent M75.102 Active 3191646 Problem Rheumatoid arthritis, involving unspecified site, unspecified rheumatoid factor presence M06.9 Active 36207883 Problem Primary osteoarthritis, unspecified site M19.91 Active 065760616 Problem Essential hypertension I10 Active 37027083 Problem PVD (peripheral vascular disease) I73.9 Active 990687807 Problem Moderate single current episode of major depressive disorder F32.1 Active 61614988 Problem Right leg claudication I73.9 Active 090429179 Problem Dupuytren's contracture of hand M72.0 Active 721292301 Problem Hyperlipidemia, unspecified hyperlipidemia type E78.5 Active 27963492 Problem Pure hypercholesterolemia E78.00 Active 979583638 Problem Primary osteoarthritis, 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 Active 55235586 ALLERGIES Substance Reaction Event Type Date Status Niacin Unknown Drug Allergy Nov, Active ENCOUNTERS Encounter Location Date Diagnosis [facility] [address] [facility] [id number], [place] [address] Mar, Encounter for pre-operative laboratory testing Z01.[address] [facility] [address] [id number] [place] [id number] Mar, Acute otitis externa of right ear, unspecified type H60.501 ; Hypotestosteronism E34.9 and Encounter for pre-operative laboratory testing Z01.[address] [facility] [address] [id number] [place] [id number] Mar, [facility] [address] [id number] [place] [id number] Mar, Hypogonadism in male E29.1 and Hypotestosteronism E34.[address] [facility] [address] [id number] [place] [id number] Mar, Acute otitis externa of right ear, unspecified type H60.[address] [facility] [address] [id number] [place] [address] Mar, Hypotestosteronism E34.[address] [facility] [address] [id number] [place] [address] Feb, [facility] [id number][place] [id number] Feb, PVD (peripheral vascular disease) I73.9 ; Pure hypercholesterolemia E78.00 and Primary osteoarthritis, unspecified site M19.[address] [facility] [address] [id number] [place] [id number] Feb, Hypotestosteronism E34.[address] [facility] [address] [id number] [place] [address] Feb, Upper respiratory infection, viral J06.[address] [facility] [address] [id number] [place] [id number] Feb, Hypotestosteronism E34.9 [facility] [address] [facility] [id number][place] [id number] January, [facility] [address] [id number] [place] [id number] January, Hypotestosteronism E34.9 [facility] [address] [id number] [place] [address] January, Hypotestosteronism E34.9 [facility] [address] [facility] [id number][place] [id number] Dec, [facility] [address] [id number] [place] [id number] Dec, Erectile dysfunction, unspecified erectile dysfunction type N52.9 [facility] [address] [facility] [id number][place] [id number] Dec, [facility] [place] [id number] [address] Dec, Pre-operative cardiovascular examination Z01.810 ; PVD (peripheral vascular disease) I73.9 ; Anxiety F41.9 ; Rheumatoid arthritis, involving unspecified site, unspecified rheumatoid factor presence M06.9 ; Essential hypertension I10 ; Hyperlipidemia, unspecified hyperlipidemia type E78.5 and Hypotestosteronism E34.9 [facility] [address] [id number] [place] [id number] Dec, [facility] [address] [id number] [place] [id number] Dec, Erectile dysfunction, unspecified erectile dysfunction type N52.9 and Hypotestosteronism E34.9 [facility] [address] [id number] [place] [id number] Dec, Hypotestosteronism E34.9 [facility] [address] [facility] [id number][place] [id number] Nov, [facility] [address] [facility] [id number] [id number] Nov, Hypotestosteronism E34.9 [facility] [address] [facility] [id number][place] [id number] Nov, Pure hypercholesterolemia E78.00 and Primary osteoarthritis, unspecified site M19.[address] [facility] [address] [id number] [place] [address] Nov, [facility] [address] [id number], [place] [address] Nov, Tear of left glenoid labrum, subsequent encounter S43.432D [facility] [address] [id number] [place] [id number] 15 Nov, 2017 Hypotestosteronism E34.9 [facility] [address] [id number] [place] [id number] 15 Nov, 2017 [facility] [address] [id number] [place] [id number] 14 Nov, 2017 [facility] [address] [id number] [place] [id number] Nov, Erectile dysfunction, unspecified erectile dysfunction type N52.9 [facility] [address] [id number] [place] [id number] Nov, Erectile dysfunction, unspecified erectile dysfunction type N52.9 [facility] [address] [id number] [place] [id number] Nov, Viral upper respiratory tract infection J06.9 and Erectile dysfunction, unspecified erectile dysfunction type N52.9 [facility] [address] [id number] [place] [id number] Oct, [facility] [address] [id number] [place] [id number] Oct, [facility] [address] [id number] [place] [address] Oct, Fall on same level due to nature of surface, initial encounter W18.39XA and Erectile dysfunction, unspecified erectile dysfunction type N52.[address] 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 [place] [address] [address] Aug, Primary osteoarthritis, unspecified site M19.91 [place] [address] [address] Jul, [place] [address] [address] Jul, Primary osteoarthritis, unspecified site M19.91 [place] [address] [address] Jul, Lumbago with sciatica, right side M54.41 [place] [address] [address] Jul, Primary osteoarthritis, 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 and Injury of left rotator cuff, subsequent encounter S46.002D [place] [address] [address] Jul, [place] [address] [address] Jul, [place] [address] [place] [address] [id number] [place] [address] Jul, [place] [address] [address] Jul, Lumbago with sciatica, left side M54.42 ; Lumbago with sciatica, right side M54.41 ; Left shoulder pain, unspecified chronicity M25.512 and Essential hypertension I10 [place] [address] [address] Jun, Lumbago with sciatica, left side M54.42 ; Lumbago with sciatica, right side M54.41 ; Left shoulder pain, unspecified chronicity M25.512 ; Essential hypertension I10 ; Heart murmur previously undiagnosed R01.1 ; Overweight E66.3 ; Anxiety F41.9 and Chronic prescription opiate use Z79.891 [place] [address] [place] [address] [id number] [place] [address] Jun, Primary osteoarthritis, unspecified site M19.91 [place] [address] [place] [id number] [place] [address] Jun, [place] [address] [address] May, Primary osteoarthritis, unspecified site M19.91 [place] [address] [place] [id number] [place] [address] May, Injury of left rotator cuff, subsequent encounter S46.002D [place] [address] [place] [address] [id number] [place] [address] May, [place] [address] [address] Apr, [place] [address] [place] [address] [id number] [place] [address] Apr, PVD (peripheral vascular disease) I73.9 ; Right leg claudication I73.9 ; Hyperlipidemia, unspecified hyperlipidemia type E78.5 ; Occlusion of femoropopliteal bypass graft, 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 and Essential hypertension I10 [place] [address] [place] [address] [id number] [place] [address] Apr, Left shoulder pain, unspecified chronicity M25.512 [place] [address] [place] [id number] [place] [address] Mar, Left shoulder pain, unspecified chronicity M25.512 [place] [address] [place] [address] [id number] [place] [address] Mar, [place] [address] [place] [address] [id number] [place] [address] Mar, [place] [address] [place] [address] [address] [address] Mar, Dupuytren's contracture of hand M72.0 ; Essential hypertension I10 ; Pure hypercholesterolemia E78.00 ; Primary osteoarthritis, unspecified site M19.91 ; PVD (peripheral vascular disease) I73.9 and Moderate single current episode of major depressive disorder F32.1 [facility] [address]65[address] [address] Feb, Dental examination Z01.20 and Dental caries K02.9 [place] [address] [place] [address] [id number] [place] [address] Feb, Primary osteoarthritis, unspecified site M19.91 [place] [address] [place] [address] [id number] [place] [address] Feb, [place] [address] [address] [id number] [place] [address] Feb, [place] [address] [id number] [place] [address] Nov, [facility] [id number] [place] [address] Nov, Dupuytren's contracture of hand M72.0 ; Pure hypercholesterolemia E78.00 ; Essential hypertension I10 ; PVD (peripheral vascular disease) I73.9 ; Primary osteoarthritis, unspecified site M19.91 and Rheumatoid arthritis, involving unspecified site, unspecified rheumatoid factor presence M06.9 [place] [address] [place] [address] [id number] [place] [address] Nov, IMMUNIZATIONS No Known Immunizations SOCIAL HISTORY Never Assessed REASON FOR VISIT sore throat, headache, dizziness (room spinning), nausea---MAN[facility] fountain PLAN OF CARE Activity Details Follow Up per PCP Reason: VITAL SIGNS Height 69 in 2017-11-21 Weight 250.4 lbs 2017-11-21 Temperature 99.3 degrees Fahrenheit 2017-11-21 Heart Rate 125 bpm 2017-11-21 Respiratory Rate 18 2017-11-21 BMI 36.97 kg/m2 2017-11-21 Blood pressure systolic 118 mmHg 2017-11-21 Blood pressure diastolic 76 mmHg 2017-11-21 MEDICATIONS Medication Instructions Dosage Frequency Start Date [...] MOUTH THREE TIMES DAILY NEEDED 28 Active Duloxetine HCl 60 mg Orally Once a day 1 capsule 24h Feb, 90 days Active Plavix 75 MG Orally Once a day 1 tablet 24h Active Cane - Active Viagra 100 mg Orally Once a day 1 tablet as needed 24h Oct,Nov 30 day(s) Active Cyclobenzaprine HCl 10 mg Orally Three times a day 1 tablet as needed 8h Active Lisinopril-Hydrochlorothiazide 10-12.5 MG Orally Once a day 1 tablet 24h Active Hydrocodone-Acetaminophen 5-325 MG Orally 3 times a day 1 tablet as needed 8h Nov, 28 Active RESULTS No Results PROCEDURES Procedure Date Ordered Result Body [facility] VISIT ESTABLISHED PATIENT November 21, 2017 INSTRUCTIONS MEDICATIONS ADMINISTERED No Known Medications MEDICAL (GENERAL) HISTORY Type Description Date Medical History dupuytren's contracture-hand bilateral Medical History hypertension Medical History hyperlipidemia Medical History Arthritis Medical History peripheral vascular disease Medical History rheumatoid arthritis Surgical History cervical fusion [facility]3-C7 [facility] 05/2015 Surgical History dupuytren's contracture-bilateral hands Surgical History Artery bypass in right leg Surgical History Occipital bone surgery right side Surgical History surgery near right eye Surgical History [place] Left shoulder replacement 01/13/2018 Hospitalization History Surgery(s) only Hospitalization History [facility]- Cold Symptoms 03/03/2018
--- OUTSIDE RECORDS SUMMARY | 2018-12-22 14:02 | XMS REPORT ---
Author Author SHASHANK LUNDBERG [facility] Address [address] [place] [address] Care Team Providers Care Car Shunter Name Role Phone SHASHANK LUNDBERG Unavailable PROBLEMS Type Condition ICD9-CM Code JQH65-DI Code Onset Dates Condition Status SNOMED Code Problem Primary osteoarthritis, 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 Active 02059964 Problem Lumbago with sciatica, left side M54.42 Active 672647482 Problem Anxiety F41.9 Active 33579487 Problem Hypotestosteronism E34.9 Active 9220279578734 Problem Erectile dysfunction, unspecified erectile dysfunction type N52.9 Active 320147547 Problem Chronic prescription opiate use Z79.891 Active 819023734 Problem Lumbago with sciatica, right side M54.41 Active 225170222091866 Problem Tear of left rotator cuff, unspecified tear extent M75.102 Active 5881889 Problem Left shoulder pain, unspecified chronicity M25.512 Active 79598950 Problem Pure hypercholesterolemia E78.00 Active 773922024 Problem Primary osteoarthritis, unspecified site M19.91 Active 206033751 Problem Dupuytren's contracture of hand M72.0 Active 594648603 Problem PVD (peripheral vascular disease) I73.9 Active 829257863 Problem Moderate single current episode of major depressive disorder F32.1 Active 34622408 Problem Rheumatoid arthritis, involving unspecified site, unspecified rheumatoid factor presence M06.9 Active 63338978 Problem Right leg claudication I73.9 Active 532930002 Problem Essential hypertension I10 Active 66928112 Problem Hyperlipidemia, unspecified hyperlipidemia type E78.5 Active 43431916 ALLERGIES No Information ENCOUNTERS Encounter Location Date Diagnosis [facility] [address] [id number] [place] [id number] Feb, [facility] [address] [id number] [place] [id number] Feb, PVD (peripheral vascular disease) I73.9 ; Pure hypercholesterolemia E78.00 and Primary osteoarthritis, unspecified site M19.[address] [facility] [address] [id number] [id number] Feb, Hypotestosteronism E34.[address] [facility] [address] [id number][place] [id number] Feb, Upper respiratory infection, viral J06.9 [facility] [address] [id number][place] [id number] Feb, Hypotestosteronism E34.9 [facility] [address] [id number] January, [facility] [address] [id number][place] [id number] January, Hypotestosteronism E34.9 [facility] [address] [id number][place] [id number] January, Hypotestosteronism E34.9 [facility] [place] [id number] [id number] Dec, [facility] [address] [facility] [address] [id number][place] [id number] Dec, Erectile dysfunction, unspecified erectile dysfunction type N52.9 [facility] [address] [id number] Dec, [facility] [place] [id number] [place] [id number] Dec, Pre-operative cardiovascular examination Z01.810 ; PVD (peripheral vascular disease) I73.9 ; Anxiety F41.9 ; Rheumatoid arthritis, involving unspecified site, unspecified rheumatoid factor presence M06.9 ; Essential hypertension I10 ; Hyperlipidemia, unspecified hyperlipidemia type E78.5 and Hypotestosteronism E34.[address] [facility] [address] [id number], [place] [id number] Dec, [facility] [address] [id number], [place] [id number] Dec, Erectile dysfunction, unspecified erectile dysfunction type N52.9 and Hypotestosteronism E34.9 [facility] [address] [id number], [place] [id number] Dec, Hypotestosteronism E34.9 [facility] [place] [address] [facility] [id number] [id number] Nov, [facility] [address] [facility] [id number], [place] [address] Nov, Hypotestosteronism E34.9 [facility] [place] [address] [facility] [id number][place] [id number] Nov, Pure hypercholesterolemia E78.00 and Primary osteoarthritis, unspecified site M19.91 [facility] [address] [id number], [place] [id number] Nov, [facility] [address] [facility] [id number], [place] [address] Nov, Tear of left glenoid labrum, subsequent encounter S43.432D [facility] [address] [id number], [place] [id number] Nov, Hypotestosteronism E34.9 [facility] [address] [id number], [place] [id number] Nov, [facility] [address] [id number][place] [id number] Nov, [facility] [address] [id number], [place] [id number] Nov, Erectile dysfunction, unspecified erectile dysfunction type N52.9 [facility] [address] [id number], [place] [id number] Nov, Erectile dysfunction, unspecified erectile dysfunction type N52.9 [facility] [address] [id number], [place] [id number] Nov, Viral upper respiratory tract infection J06.9 and Erectile dysfunction, unspecified erectile dysfunction type N52.9 [facility] [address] [facility] [address] [id number], [place] [id number] Oct, [facility] [place] [address] [facility] [address] [id number][place] [id number] Oct, [facility] [place] [address] [facility] [address] [id number], [place] [id number] Oct, Fall on same level due to nature of surface, initial encounter W18.39XA and Erectile dysfunction, unspecified erectile dysfunction type N52.9 [facility] [address] [place] [id number] [place] [address] Sep, [facility] [address] [address] Sep, Tear of left rotator cuff, unspecified tear extent M75.102 and Primary osteoarthritis, 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 [place] [address] [address] Aug, Primary osteoarthritis, unspecified site M19.91 [facility] [address] [place] [place] [id number] [place] [address] Jul, [facility] [address] [address] Jul, Primary osteoarthritis, unspecified site M19.91 [facility] [address] [place] [id number] [place] [address] Jul, Lumbago with sciatica, right side M54.41 [facility] [address] [place] [place] [id number] [place] [address] Jul, Primary osteoarthritis, 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 and Injury of left rotator cuff, subsequent encounter S46.002D [facility] [address] [place] [id number] [place] [address] Jul, [facility] [address] [place] [place] [id number] [place] [address] Jul, [place] [address] [place] [id number] [place] [address] Jul, [place] [address] [place] [id number] [place] [address] Jul, Lumbago with sciatica, left side M54.42 ; Lumbago with sciatica, right side M54.41 ; Left shoulder pain, unspecified chronicity M25.512 and Essential hypertension I10 [place] [address] [place] [id number] [place] [address] Jun, Lumbago with sciatica, left side M54.42 ; Lumbago with sciatica, right side M54.41 ; Left shoulder pain, unspecified chronicity M25.512 ; Essential hypertension I10 ; Heart murmur previously undiagnosed R01.1 ; Overweight E66.3 ; Anxiety F41.9 and Chronic prescription opiate use Z79.891 [place] [address] [address] Jun, Primary osteoarthritis, unspecified site M19.91 [place] [address] [place] [id number] [place] [address] Jun, [place] [address] [place] [id number] [place] [address]- [address] May, Primary osteoarthritis, unspecified site M19.91 [place] [address] [place] [id number] [place] [address]- [address] May, Injury of left rotator cuff, subsequent encounter S46.002D [place] [address] [place] [id number] [place] [address]- [address] May, [place] [address] [address] Apr, [place] [address] [place] [id number] [place] [address]- [address] Apr, PVD (peripheral vascular disease) I73.9 ; Right leg claudication I73.9 ; Hyperlipidemia, unspecified hyperlipidemia type E78.5 ; Occlusion of femoropopliteal bypass graft, 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 and Essential hypertension I10 [facility] [address] [place] [id number] [place] [address]- [address] Apr, Left shoulder pain, unspecified chronicity M25.512 [facility] [address] [place] [place] [id number] [place] [address] 6[address]95- 2188 Mar, Left shoulder pain, unspecified chronicity M25.512 [facility] [address] [place] [id number] [place] [address] 21409- 4486 Mar, [place] [address] [place] [id number] [place] [address] 20144- 8[address] Mar, [facility] [address] [place] [id number] [place] [address]35- 9003 Mar, Dupuytren's contracture of hand M72.0 ; Essential hypertension I10 ; Pure hypercholesterolemia E78.00 ; Primary osteoarthritis, unspecified site M19.91 ; PVD (peripheral vascular disease) I73.9 and Moderate single current episode of major depressive disorder F32.1 [facility] [address] [place] [id number] [place] [id number] Feb, Dental examination Z01.20 and Dental caries K02.9 [facility] [address] [place] [id number] [place] [address]- [address] Feb, Primary osteoarthritis, unspecified site M19.91 [facility] [address] [place] [id number] [place] [address] 57424- 6690 Feb, [facility] [address] [place] [id number] [place] [address]706- 11[address] Feb, [facility] [address] [place] [id number] [place] [address] 01424- 69[address] Nov, [facility] [address] [place] [id number] [place] [address] Nov, Dupuytren's contracture of hand M72.0 ; Pure hypercholesterolemia E78.00 ; Essential hypertension I10 ; PVD (peripheral vascular disease) I73.9 ; Primary osteoarthritis, unspecified site M19.91 and Rheumatoid arthritis, involving unspecified site, unspecified rheumatoid factor presence M06.9 [facility] [address] [facility] [id number] [place] [address] Nov, IMMUNIZATIONS No Known Immunizations SOCIAL HISTORY Never Assessed REASON FOR VISIT 8 wk f/u. Consult Shashank Lundberg;[place] RT(R) PLAN OF CARE Activity Details Follow Up after MRI Reason: VITAL SIGNS Height 69 in 2017-10-06 Blood pressure systolic 144 mmHg 2017-10-06 Blood pressure diastolic 86 mmHg 2017-10-06 MEDICATIONS Unknown Medications RESULTS Name Result Date Reference Range MRI : Shoulder, Left 2017-12-05 PROCEDURES No Known procedures INSTRUCTIONS MEDICATIONS ADMINISTERED No Known Medications MEDICAL (GENERAL) HISTORY Type Description Date Medical History dupuytren's contracture-hand bilateral Medical History hypertension Medical History hyperlipidemia Medical History Arthritis Medical History peripheral vascular disease Medical History rheumatoid arthritis Surgical History cervical fusion C3-C7 -[facility] 05/2015 Surgical History dupuytren's contracture-bilateral hands Surgical History Artery bypass in right leg Surgical History Occipital bone surgery right side Surgical History surgery near right eye Surgical History [facility] Left shoulder replacement 01/13/2018 Hospitalization History Surgery(s) only
--- OUTSIDE RECORDS SUMMARY | 2018-12-22 14:02 | XMS REPORT ---
Author Author SINDY LANDAVERED Organization [facility] [place] Address [address] [place] [address] Care Team Providers Care Automotive Service Porter Name Role Phone SINDY LANDAVERDE Unavailable PROBLEMS Type Condition ICD9-CM Code AOK68-ZP Code Onset Dates Condition Status SNOMED Code Problem Primary osteoarthritis, 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 Active 66804118 Problem Lumbago with sciatica, left side M54.42 Active 524243676 Problem Anxiety F41.9 Active 14766209 Problem Hypotestosteronism E34.9 Active 9315910709653 Problem Erectile dysfunction, unspecified erectile dysfunction type N52.9 Active 435860974 Problem Chronic prescription opiate use Z79.891 Active 195523657 Problem Lumbago with sciatica, right side M54.41 Active 047044762362078 Problem Tear of left rotator cuff, unspecified tear extent M75.102 Active 5279008 Problem Left shoulder pain, unspecified chronicity M25.512 Active 67775106 Problem Pure hypercholesterolemia E78.00 Active 478359236 Problem Primary osteoarthritis, unspecified site M19.91 Active 883135754 Problem Dupuytren's contracture of hand M72.0 Active 366550287 Problem PVD (peripheral vascular disease) I73.9 Active 917375056 Problem Moderate single current episode of major depressive disorder F32.1 Active 03866855 Problem Rheumatoid arthritis, involving unspecified site, unspecified rheumatoid factor presence M06.9 Active 78569206 Problem Right leg claudication I73.9 Active 486881905 Problem Essential hypertension I10 Active 57797857 Problem Hyperlipidemia, unspecified hyperlipidemia type E78.5 Active 72561854 ALLERGIES Substance Reaction Event Type Date Status Niacin Unknown Drug Allergy Oct, Active ENCOUNTERS Encounter Location Date Diagnosis [facility] [address] [id number] [place] [id number] Feb, [facility] [address] Feb, PVD (peripheral vascular disease) I73.9 ; Pure hypercholesterolemia E78.00 and Primary osteoarthritis, unspecified site M19.[address] [facility] [address] [id number], [place] [id number] Feb, Hypotestosteronism E34.[address] [facility] [address] [id number], [place] [address] Feb, Upper respiratory infection, viral J06.[address] [facility] [address] [id number], [place] [address]79[address] Feb, Hypotestosteronism E34.9 [facility] [address] [place] [id number] January, [facility] [address] [id number], [place] [id number] January, Hypotestosteronism E34.9 [facility] [address] [id number], [place] [id number] January, Hypotestosteronism E34.9 [facility] [address] [place] [id number] Dec, [facility] [address] [id number], [place] [id number] Dec, Erectile dysfunction, unspecified erectile dysfunction type N52.9 [address] [place] [address] [id number] Dec, [facility] [address] [place] [address] [id number] Dec, Pre-operative cardiovascular examination Z01.810 ; PVD (peripheral vascular disease) I73.9 ; Anxiety F41.9 ; Rheumatoid arthritis, involving unspecified site, unspecified rheumatoid factor presence M06.9 ; Essential hypertension I10 ; Hyperlipidemia, unspecified hyperlipidemia type E78.5 and Hypotestosteronism E34.9 [facility] [address] [id number], [place] [id number] Dec, [facility] [address] [id number], [place] [id number] Dec, Erectile dysfunction, unspecified erectile dysfunction type N52.9 and Hypotestosteronism E34.9 [facility] [address] [id number], [place] [id number] Dec, Hypotestosteronism E34.9 [facility] [place] [id number], [place] [id number] Nov, [facility] [address] [facility] [id number] [address] Nov, Hypotestosteronism E34.9 [facility] [place] [address] [id number] Nov, Pure hypercholesterolemia E78.00 and Primary osteoarthritis, unspecified site M19.91 [facility] [address] [id number], [place] [id number] Nov, [facility] [address] [id number], [place] [address] Nov, Tear of left glenoid labrum, subsequent encounter S43.432D [facility] [address] [id number], [place] [id number] Nov, Hypotestosteronism E34.9 [facility] [address] [id number], [place] [id number] Nov, [facility] [address] [id number], [place] [id number] Nov, [facility] [address] [id number], [place] [id number] Nov, Erectile dysfunction, unspecified erectile dysfunction type N52.9 [facility] [address] [id number], [place] [id number] Nov, Erectile dysfunction, unspecified erectile dysfunction type N52.9 [facility] [address] [id number], [place] [id number] Nov, Viral upper respiratory tract infection J06.9 and Erectile dysfunction, unspecified erectile dysfunction type N52.9 [facility] [address] [id number], [place] [id number] Oct, [facility] [address] [id number], [place] [id number] Oct, [facility] [address] [id number], [place] [id number] Oct, Fall on same level due to nature of surface, initial encounter W18.39XA and Erectile dysfunction, unspecified erectile dysfunction type N52.9 [place] [address] [address] Sep, [place] [address] [address] Sep, Tear of left rotator cuff, unspecified tear extent M75.102 and Primary osteoarthritis, 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 [place] [address] [address] Aug, Primary osteoarthritis, unspecified site M19.91 [place] [address] [address] Jul, [facility] [place] [id number] [place] [address] Jul, Primary osteoarthritis, unspecified site M19.91 [facility] [place] [address] [address] Jul, Lumbago with sciatica, right side M54.41 [facility] [place] [id number] [place] [address]18- [address] Jul, Primary osteoarthritis, 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 and Injury of left rotator cuff, subsequent encounter S46.002D [facility] [place] [address] [address] Jul, [facility] [place] [address] [place] [address] Jul, [facility] [place] [address] [address] Jul, [facility] [place] [address] [address] Jul, Lumbago with sciatica, left side M54.42 ; Lumbago with sciatica, right side M54.41 ; Left shoulder pain, unspecified chronicity M25.512 and Essential hypertension I10 [place] [address] [address]- [address] Jun, Lumbago with sciatica, left side M54.42 ; Lumbago with sciatica, right side M54.41 ; Left shoulder pain, unspecified chronicity M25.512 ; Essential hypertension I10 ; Heart murmur previously undiagnosed R01.1 ; Overweight E66.3 ; Anxiety F41.9 and Chronic prescription opiate use Z79.891 [place] [address] [address]- [address] Jun, Primary osteoarthritis, unspecified site M19.91 [place] [address] [address]- [address] Jun, [place] [address] [address] May, Primary osteoarthritis, unspecified site M19.91 [place] [address] [address]- [address] May, Injury of left rotator cuff, subsequent encounter S46.002D [facility] [place] [address] [address]- [address] May, [place] [address] [address]- [address] Apr, [place] [address] [address]- [address] Apr, PVD (peripheral vascular disease) I73.9 ; Right leg claudication I73.9 ; Hyperlipidemia, unspecified hyperlipidemia type E78.5 ; Occlusion of femoropopliteal bypass graft, 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 and Essential hypertension I10 [facility] [place] [id number] [place] [address]344- 2853 Apr, Left shoulder pain, unspecified chronicity M25.512 [facility] [place] [address] [address]- [address] Mar, Left shoulder pain, unspecified chronicity M25.512 [facility] [place] [id number] [place] [address] 54237- 5695 Mar, [place] [id number] [place] [address] 16565- 2135 Mar, [facility] [place] [id number] [place] [address] 57702- 3256 Mar, Dupuytren's contracture of hand M72.0 ; Essential hypertension I10 ; Pure hypercholesterolemia E78.00 ; Primary osteoarthritis, unspecified site M19.91 ; PVD (peripheral vascular disease) I73.9 and Moderate single current episode of major depressive disorder F32.1 [facility] [id number] [place] [id number] Feb, Dental examination Z01.20 and Dental caries K02.9 [facility] [place] [id number] [place] [address] 9[address]- 2357 Feb, Primary osteoarthritis, unspecified site M19.91 [facility] [place] [id number] [place] [address] 80974- 7388 Feb, [facility] [place] [id number] [place] [address] 95416- 8845 Feb, [facility] [place] [id number] [place] [address] 10046- 6554 Nov, [facility] [place] [address] [address] Nov, Dupuytren's contracture of hand M72.0 ; Pure hypercholesterolemia E78.00 ; Essential hypertension I10 ; PVD (peripheral vascular disease) I73.9 ; Primary osteoarthritis, unspecified site M19.91 and Rheumatoid arthritis, involving unspecified site, unspecified rheumatoid factor presence M06.9 [facility] [address] [facility] [id number] [place] [address] Nov, IMMUNIZATIONS No Known Immunizations SOCIAL HISTORY Never Assessed REASON FOR VISIT Pain management (chronic),narc contract updated. Eh [facility] PLAN OF CARE Activity Details Follow Up 3 Months Reason: VITAL SIGNS Height 69 in 2017-10-24 Weight 250.1 lbs 2017-10-24 Temperature 97.9 degrees Fahrenheit 2017-10-24 Heart Rate 112 bpm 2017-10-24 Respiratory Rate 20 2017-10-24 BMI 36.93 kg/m2 2017-10-24 Blood pressure systolic 110 mmHg 2017-10-24 Blood pressure diastolic 80 mmHg 2017-10-24 MEDICATIONS Medication Instructions Dosage Frequency Start Date End Date Duration Status Aspirin Adult Low Dose 81 MG Orally Once a day 1 tablet 24h Active Duloxetine HCl 60 mg Orally Once a day 1 capsule 24h Feb, 90 days Not-Taking Lisinopril-Hydrochlorothiazide 10-12.5 MG Orally Once a day 1 tablet 24h Active Plavix 75 MG Orally Once a day 1 tablet 24h Active Tramadol HCl 50 MG TAKE ONE TABLET BY MOUTH THREE TIMES DAILY NEEDED 28 Active Hydrocodone-Acetaminophen 5-325 MG Orally 3 times a day 1 tablet as needed 8h Oct, 28 Active Lopid 600 MG Orally Twice a day 1 tablet 12h Nov, 30 day(s) Active Lipitor 20 mg Orally Once a day 1 tablet 24h Active Viagra 100 mg Orally Once a day 1 tablet as needed 24h Oct,Nov 30 day(s) Active Cane - Active Cyclobenzaprine HCl 10 mg Orally Three times a day 1 tablet as needed 8h Active RESULTS Name Result Date Reference Range Xray : Scapula, Left (IN HOUSE) 2017-10-24 PROCEDURES Procedure Date Ordered Result Body Site X-RAY EXAM OF SHOULDER BLADE Oct 24, 2017 INSTRUCTIONS MEDICATIONS ADMINISTERED No Known Medications MEDICAL (GENERAL) HISTORY Type Description Date Medical History dupuytren's contracture-hand bilateral Medical History hypertension Medical History hyperlipidemia Medical History Arthritis Medical History peripheral vascular disease Medical History rheumatoid arthritis Surgical History cervical fusion C3-C7 [facility] 05/2015 Surgical History dupuytren's contracture-bilateral hands Surgical History Artery bypass in right leg Surgical History Occipital bone surgery right side Surgical History surgery near right eye Surgical History [place] Left shoulder replacement 01/13/2018 Hospitalization History Surgery(s) only
--- OUTSIDE RECORDS SUMMARY | 2018-12-22 14:02 | XMS REPORT ---
Author Author SINDY LANDAVERDE [facility] Address [address] [place] [address] Care Team Providers Care Process Mechanic Name Role Phone SINDY LANDAVERDE Unavailable PROBLEMS Type Condition ICD9-CM Code EAI47-WN Code Onset Dates Condition Status SNOMED Code Problem Primary osteoarthritis, 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 Active 84799810 Problem Lumbago with sciatica, left side M54.42 Active 297604249 Problem Anxiety F41.9 Active 44787491 Problem Hypotestosteronism E34.9 Active 5525666981860 Problem Erectile dysfunction, unspecified erectile dysfunction type N52.9 Active 815166043 Problem Chronic prescription opiate use Z79.891 Active 140327206 Problem Lumbago with sciatica, right side M54.41 Active 441767605348720 Problem Tear of left rotator cuff, unspecified tear extent M75.102 Active 5401226 Problem Left shoulder pain, unspecified chronicity M25.512 Active 56366345 Problem Pure hypercholesterolemia E78.00 Active 954972128 Problem Primary osteoarthritis, unspecified site M19.91 Active 398952657 Problem Dupuytren's contracture of hand M72.0 Active 665512183 Problem PVD (peripheral vascular disease) I73.9 Active 509955307 Problem Moderate single current episode of major depressive disorder F32.1 Active 65043144 Problem Rheumatoid arthritis, involving unspecified site, unspecified rheumatoid factor presence M06.9 Active 26538791 Problem Right leg claudication I73.9 Active 246397468 Problem Essential hypertension I10 Active 63261084 Problem Hyperlipidemia, unspecified hyperlipidemia type E78.5 Active 00399183 ALLERGIES No Information ENCOUNTERS Encounter Location Date Diagnosis [facility] [address] [id number] [place] [id number] Feb, Upper respiratory infection, viral J06.9 [facility] [address] [id number], [place] [id number] Feb, Hypotestosteronism E34.9 [facility] [place] [address] [id number] [id number] January, [facility] [address] [id number], [place] [id number] January, Hypotestosteronism E34.9 [facility] [address] [id number], [place] [id number] January, Hypotestosteronism E34.9 [facility] [place] [address] [facility] [id number], [place] [id number] Dec, [facility] [address] [address] [facility] [id number], [place] [id number] Dec, Erectile dysfunction, unspecified erectile dysfunction type N52.9 [facility] [place] [address] [id number][place] [id number] Dec, [facility] [place] [id number] [id number] Dec, Pre-operative cardiovascular examination Z01.810 ; PVD (peripheral vascular disease) I73.9 ; Anxiety F41.9 ; Rheumatoid arthritis, involving unspecified site, unspecified rheumatoid factor presence M06.9 ; Essential hypertension I10 ; Hyperlipidemia, unspecified hyperlipidemia type E78.5 and Hypotestosteronism E34.9 [facility] [address] [facility] [address] [id number], [place] [id number] Dec, [facility] [address] [id number], [place] [id number] Dec, Erectile dysfunction, unspecified erectile dysfunction type N52.9 and Hypotestosteronism E34.9 [facility] [address] [id number], [place] [id number] Dec, Hypotestosteronism E34.9 [facility] [place] [address] [facility] [id number], [place] [id number] Nov, [facility] [address]65100[place] [address] Nov, Hypotestosteronism E34.9 [facility] [place] [address] [id number], [place] [id number] Nov, Pure hypercholesterolemia E78.00 and Primary osteoarthritis, unspecified site M19.[address] [facility] [address] [id number], [place] [id number] Nov, [facility] [address] [facility] [id number][place] [address]90[address] Nov, Tear of left glenoid labrum, subsequent encounter S43.432D [facility] [address] [id number], [place] [address]7733 Nov, Hypotestosteronism E34.[address] [facility] [address] [id number], [place] [id number] Nov, [facility] [address] [id number], [place] [id number] Nov, [facility] [address] [id number], [place] [id number] Nov, Erectile dysfunction, unspecified erectile dysfunction type N52.[address] [facility] [address] [id number], [place] [id number] Nov, Erectile dysfunction, unspecified erectile dysfunction type N52.9 [facility] [address] [id number], [place] [address]3842 Nov, Viral upper respiratory tract infection J06.9 and Erectile dysfunction, unspecified erectile dysfunction type N52.[address] [facility] [address] [id number], [place] [id number] Oct, [facility] [address] [id number], [place] [id number] Oct, [facility] [address] [id number], [place] [id number] Oct, Fall on same level due to nature of surface, initial encounter W18.39XA and Erectile dysfunction, unspecified erectile dysfunction type N52.9 [place] [address] [address]- [address] Sep, [place] [address] 431335- [address]686 Sep, Tear of left rotator cuff, unspecified tear extent M75.102 and Primary osteoarthritis, 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 [place] [address] [address]- [address]68 Aug, Primary osteoarthritis, unspecified site M19.91 [place] [address] 5[address]12- 2827 Jul, [place] [address] [address] Jul, Primary osteoarthritis, unspecified site M19.91 [place] [address] 919656- 2613 Jul, Lumbago with sciatica, right side M54.41 [place] [address] [address]33- [address]703 Jul, Primary osteoarthritis, 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 and Injury of left rotator cuff, subsequent encounter S46.002D [place] [address] 0[address]25- 1771 Jul, [place] [address] 83532- [address]165 Jul, [place] [address] [address]30- 5728 Jul, [place] [address] [address]663- [address] Jul, Lumbago with sciatica, left side M54.42 ; Lumbago with sciatica, right side M54.41 ; Left shoulder pain, unspecified chronicity M25.512 and Essential hypertension I10 [place] [address] [place] [address] Jun, Lumbago with sciatica, left side M54.42 ; Lumbago with sciatica, right side M54.41 ; Left shoulder pain, unspecified chronicity M25.512 ; Essential hypertension I10 ; Heart murmur previously undiagnosed R01.1 ; Overweight E66.3 ; Anxiety F41.9 and Chronic prescription opiate use Z79.891 [place] [address] [address]32- [address]99 Jun, Primary osteoarthritis, unspecified site M19.91 [place] [address] 6[address]88- 8266 Jun, [place] [address] 9[address]- 7770 May, Primary osteoarthritis, unspecified site M19.91 [place] [address] 7[address]39- 9729 May, Injury of left rotator cuff, subsequent encounter S46.002D [place] [id number] [place] [address] 9[address]30- 1462 May, [place] [address] 6[address]- 8611 Apr, [place] [id number] [place] [address] 35780- 3749 Apr, PVD (peripheral vascular disease) I73.9 ; Right leg claudication I73.9 ; Hyperlipidemia, unspecified hyperlipidemia type E78.5 ; Occlusion of femoropopliteal bypass graft, 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 and Essential hypertension I10 [place] [address] 90648- 9426 Apr, Left shoulder pain, unspecified chronicity M25.512 [place] [id number] [place] [address] 30801- 2890 Mar, Left shoulder pain, unspecified chronicity M25.512 [place] [address]65100[place] [address]- [address] Mar, [facility] [id number] [place] [address] 39115- 4625 Mar, [facility] [id number] [place] [address] 56841- 7104 Mar, Dupuytren's contracture of hand M72.0 ; Essential hypertension I10 ; Pure hypercholesterolemia E78.00 ; Primary osteoarthritis, unspecified site M19.91 ; PVD (peripheral vascular disease) I73.9 and Moderate single current episode of major depressive disorder F32.1 [facility] [id number] [place] [id number] Feb, Dental examination Z01.20 and Dental caries K02.9 [facility] [id number] [place] [address] 17646- 0805 Feb, Primary osteoarthritis, unspecified site M19.91 [facility] [id number] [place] [address] 29020- 0852 Feb, [place] [id number] [place] [address] 20081- 5520 Feb, [facility] [id number] [place] [address] 34088- 7476 Nov, [facility] [id number] [place] [address] 57277- 7099 Nov, Dupuytren's contracture of hand M72.0 ; Pure hypercholesterolemia E78.00 ; Essential hypertension I10 ; PVD (peripheral vascular disease) I73.9 ; Primary osteoarthritis, unspecified site M19.91 and Rheumatoid arthritis, involving unspecified site, unspecified rheumatoid factor presence M06.9 [facility] [address] [place] [address] 15911- 2228 Nov, IMMUNIZATIONS No Known Immunizations SOCIAL HISTORY [...] History surgery near right eye Surgical History [place] Left shoulder replacement 01/13/2018 Hospitalization History Surgery(s) only
--- OUTSIDE RECORDS SUMMARY | 2018-12-22 14:03 | XMS REPORT ---
Author Author SINDY LANDAVERDE [facility] Address [address] [place] [address] Care Team Providers Care Rfid Specialist Name Role Phone SINDY LANDAVERDE Unavailable PROBLEMS Type Condition ICD9-CM Code NGY68-AY Code Onset Dates Condition Status SNOMED Code Problem Primary osteoarthritis, 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 Active 22872183 Problem Lumbago with sciatica, left side M54.42 Active 610092467 Problem Anxiety F41.9 Active 82308801 Problem Hypotestosteronism E34.9 Active 4232688181159 Problem Erectile dysfunction, unspecified erectile dysfunction type N52.9 Active 062960840 Problem Chronic prescription opiate use Z79.891 Active 987584133 Problem Lumbago with sciatica, right side M54.41 Active 530024644130630 Problem Tear of left rotator cuff, unspecified tear extent M75.102 Active 5691319 Problem Left shoulder pain, unspecified chronicity M25.512 Active 03584383 Problem Pure hypercholesterolemia E78.00 Active 582095406 Problem Primary osteoarthritis, unspecified site M19.91 Active 961519585 Problem Dupuytren's contracture of hand M72.0 Active 196531106 Problem PVD (peripheral vascular disease) I73.9 Active 244089684 Problem Moderate single current episode of major depressive disorder F32.1 Active 28176565 Problem Rheumatoid arthritis, involving unspecified site, unspecified rheumatoid factor presence M06.9 Active 13674474 Problem Right leg claudication I73.9 Active 681688082 Problem Essential hypertension I10 Active 78385375 Problem Hyperlipidemia, unspecified hyperlipidemia type E78.5 Active 42283674 ALLERGIES No Information ENCOUNTERS Encounter Location Date Diagnosis [facility] [address] [id number] [place] [id number] Feb, [facility] [address] [id number] [place] [id number] Feb, PVD (peripheral vascular disease) I73.9 ; Pure hypercholesterolemia E78.00 and Primary osteoarthritis, unspecified site M19.91 [facility] [address] [id number] [id number] Feb, Hypotestosteronism E34.[address] [facility] [address] [id number][place] [id number] Feb, Upper respiratory infection, viral J06.9 [facility] [address] [id number], [place] [id number] Feb, Hypotestosteronism E34.9 [facility] [address] [place] [id number] January, [facility] [address] [id number][place] [id number] January, Hypotestosteronism E34.9 [facility] [address] [place] [address] AVE [id number] [id number] January, Hypotestosteronism E34.9 [facility] [address] [id number] Dec, [facility] [address] [facility] [id number][place] [id number] Dec, Erectile dysfunction, unspecified erectile dysfunction type N52.9 [facility] [address] [place] [id number] Dec, [facility] [id number] [place] [id number] Dec, Pre-operative cardiovascular examination Z01.810 ; PVD (peripheral vascular disease) I73.9 ; Anxiety F41.9 ; Rheumatoid arthritis, involving unspecified site, unspecified rheumatoid factor presence M06.9 ; Essential hypertension I10 ; Hyperlipidemia, unspecified hyperlipidemia type E78.5 and Hypotestosteronism E34.9 [facility] [address] [id number][place] [id number] Dec, [facility] [address] [id number], [place] [id number] Dec, Erectile dysfunction, unspecified erectile dysfunction type N52.9 and Hypotestosteronism E34.9 [facility] [address] [id number], [place] [id number] Dec, Hypotestosteronism E34.9 [facility] [employer] [facility] [address] [id number] [id number] Nov, [facility] [address] [facility] [id number], [place] [address] Nov, Hypotestosteronism E34.9 [facility] [employer] [employer] [facility] [address] [facility] [id number][place] [id number] Nov, Pure hypercholesterolemia E78.00 and Primary osteoarthritis, unspecified site M19.91 [facility] [address] [id number], [place] [id number] Nov, [facility] [address] [facility] [id number] [address] Nov, Tear of left glenoid labrum, subsequent encounter S43.432D [facility] [address] [id number], [place] [id number] Nov, Hypotestosteronism E34.9 [facility] [address] [id number], [place] [id number] Nov, [facility] [address] [id number], [place] [id number] Nov, [facility] [address] [id number], [place] [id number] Nov, Erectile dysfunction, unspecified erectile dysfunction type N52.9 [facility] [address] [id number], [place] [id number] Nov, Erectile dysfunction, unspecified erectile dysfunction type N52.9 [facility] [address] [id number], [place] [id number] Nov, Viral upper respiratory tract infection J06.9 and Erectile dysfunction, unspecified erectile dysfunction type N52.9 [facility] [address] [id number] [place] [id number] Oct, [facility] [address] [id number][place] [id number] Oct, [facility] [address] [id number], [place] [id number] Oct, Fall on same level due to nature of surface, initial encounter W18.39XA and Erectile dysfunction, unspecified erectile dysfunction type N52.9 [facility] [id number] [place] [address] Sep, [place] [id number] [place] [address] Sep, Tear of left rotator cuff, unspecified tear extent M75.102 and Primary osteoarthritis, 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 [place] [address] [address] Aug, Primary osteoarthritis, unspecified site M19.91 [place] [id number] [place] [address] Jul, [facility] [id number] [place] [address] Jul, Primary osteoarthritis, unspecified site M19.91 [facility] [id number] [place] [address] Jul, Lumbago with sciatica, right side M54.41 [facility] [id number] [place] [address] Jul, Primary osteoarthritis, 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 and Injury of left rotator cuff, subsequent encounter S46.002D [facility] [id number] [place] [address]994[address] 2[address] 09 Jul, 2017 [facility] [id number] [place] [address] 490[address] Jul, [facility] [address] [place] [address] 7148 Jul, [facility] [id number] [place] [address] 30186[address] Jul, Lumbago with sciatica, left side M54.42 ; Lumbago with sciatica, right side M54.41 ; Left shoulder pain, unspecified chronicity M25.512 and Essential hypertension I10 [place] [id number] [place] [address] 04718[address]85 Jun, Lumbago with sciatica, left side M54.42 ; Lumbago with sciatica, right side M54.41 ; Left shoulder pain, unspecified chronicity M25.512 ; Essential hypertension I10 ; Heart murmur previously undiagnosed R01.1 ; Overweight E66.3 ; Anxiety F41.9 and Chronic prescription opiate use Z79.891 [place] [id number] [place] [address]40- 5157 Jun, Primary osteoarthritis, unspecified site M19.91 [place] [id number] [place] [address]28[address] Jun, [place] [id number] [place] [address] May, Primary osteoarthritis, unspecified site M19.91 [place] [id number] [place] [address] 55562- 5166 May, Injury of left rotator cuff, subsequent encounter S46.002D [place] [id number] [place] [address] 8[address]67- 8666 May, [place] [address] [address] Apr, [place] [id number] [place] [address] 38798- 1567 Apr, PVD (peripheral vascular disease) I73.9 ; Right leg claudication I73.9 ; Hyperlipidemia, unspecified hyperlipidemia type E78.5 ; Occlusion of femoropopliteal bypass graft, 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 and Essential hypertension I10 [facility] [id number] [place] [address] 55816- 0959 Apr, Left shoulder pain, unspecified chronicity M25.512 [facility] [id number] [place] [address] 42130- 4830 Mar, Left shoulder pain, unspecified chronicity M25.512 [facility] [id number] [place] [address] 27314- 2041 Mar, [place] [id number] [place] [address] 62424[address] Mar, [place] [id number] [place] [address] 20102- 1321 Mar, Dupuytren's contracture of hand M72.0 ; Essential hypertension I10 ; Pure hypercholesterolemia E78.00 ; Primary osteoarthritis, unspecified site M19.91 ; PVD (peripheral vascular disease) I73.9 and Moderate single current episode of major depressive disorder F32.1 [facility] [id number] [place] [id number] Feb, Dental examination Z01.20 and Dental caries K02.9 [facility] [address], [place] [address] Feb, Primary osteoarthritis, unspecified site M19.91 [facility] [id number] [place] [address] 65927- 3230 Feb, [facility] [id number] [place] [address] 20390- 3101 Feb, [facility] [id number] [place] [address] 85114- 4843 Nov, [facility] [id number] [place] [address] 82961- 4619 Nov, Dupuytren's contracture of hand M72.0 ; Pure hypercholesterolemia E78.00 ; Essential hypertension I10 ; PVD (peripheral vascular disease) I73.9 ; Primary osteoarthritis, unspecified site M19.91 and Rheumatoid arthritis, involving unspecified site, unspecified rheumatoid factor presence M06.9 [facility] [address] [facility] [id number] [place] [address] Nov, IMMUNIZATIONS No Known Immunizations SOCIAL HISTORY Never Assessed REASON FOR VISIT results/letter PLAN OF CARE VITAL SIGNS MEDICATIONS Unknown Medications RESULTS No Results PROCEDURES No Known procedures INSTRUCTIONS MEDICATIONS ADMINISTERED No Known Medications MEDICAL (GENERAL) HISTORY Type Description Date Medical History dupuytren's contracture-hand bilateral Medical History hypertension Medical History hyperlipidemia Medical History Arthritis Medical History peripheral vascular disease Medical History rheumatoid arthritis Surgical History cervical fusion C3-C7 -[facility] 05/2015 Surgical History dupuytren's contracture-bilateral hands Surgical History Artery bypass in right leg Surgical History Occipital bone surgery right side Surgical History surgery near right eye Surgical History Silver Left shoulder replacement 01/13/2018 Hospitalization History Surgery(s) only
--- OUTSIDE RECORDS SUMMARY | 2018-12-22 14:05 | XMS REPORT | Continuity of Care Document ---
Author Author [facility] Organization [facility] Address Unknown Phone Unavailable Care Team Providers Care Garnetter Name Role Phone DELIA AMOS DO PP Insurance Providers Payer Name Policy Number Subscriber Name Relationship [facility] [id number] Charlie Ray Jr 01 Self / Same As Patient Advance Directives Directive Response Recorded Date Advance Directives N 03/16/13 10:05am Health Care Power of Corporate Strategy Associate N 03/16/13 10:05am Organ Donor N 03/16/13 10:05am Problems No Known Problems or Medical conditions. Allergies, Adverse Reactions, Alerts Allergen Type Severity Reaction Last Updated niacin Allergy 03/16/13 Medications Medication Dose Units Route Sig Qty Days Sucralfate (Carafate) 1 Gm PO ACHS PRN Pantoprazole Sodium 40 Mg PO DAILY 90 Aspirin (Aspirin 325 Mg Tab) 325 Mg PO DAILY Enalapril Maleate (Vasotec Tablet) 10 Mg GT DAILY Response Recorded Date/Time Status not known Unknown Results No Known Relevant Diagnostic Tests, Laboratory Data and/or Discharge Summary.
--- OUTSIDE RECORDS SUMMARY | 2018-12-22 14:05 | XMS REPORT | Continuity of Care Document ---
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 05/04/2017 DERIK [...] MD Ot Z98.890 OTHER SPECIFIED POSTPROCEDURAL STATES 03/03/2018 ERIC NOVOA APRN Ot I10 ESSENTIAL (PRIMARY) HYPERTENSION 03/03/2018 ERIC NOVOA APRN Ot J02.9 ACUTE PHARYNGITIS, UNSPECIFIED 03/03/2018 ERIC NOVOA APRN Ot J06.9 ACUTE UPPER RESPIRATORY INFECTION, UNSPE 03/03/2018 ERIC NOVOA APRN Ot J40 BRONCHITIS, NOT SPECIFIED ACUTE OR CH 03/03/2018 ERIC NOVOA APRN Ot 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 03/03/2018 ERIC NOVOA APRN Ot Z87.891 PERSONAL HISTORY OF NICOTINE DEPENDENCE 03/03/2018 ERIC NOVOA APRN Ot Z88.8 ALLERGY STATUS TO OTH DRUG/MEDS/BIOL SUB 03/06/2018 ERIC NOVOA APRN Ot I10 ESSENTIAL (PRIMARY) HYPERTENSION 03/06/2018 ERIC NOVOA APRN Ot J02.9 ACUTE PHARYNGITIS, UNSPECIFIED 03/06/2018 ERIC NOVOA APRN Ot J06.9 ACUTE UPPER RESPIRATORY INFECTION, UNSPE 03/06/2018 ERIC NOVOA APRN Ot J40 BRONCHITIS, NOT SPECIFIED ACUTE OR CH 03/06/2018 ERIC NOVOA APRN Ot 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 03/06/2018 ERIC NOVOA APRN Ot Z87.891 PERSONAL HISTORY OF NICOTINE DEPENDENCE 03/06/2018 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 Z88.8 ALLERGY STATUS TO OTH DRUG/MEDS/BIOL SUB 08/23/2018 MARLIN GALVAN CHEMIST [employer]GANIC Ot Z87.891 PERSONAL HISTORY OF NICOTINE DEPENDENCE 08/24/2018 MARLIN GALVAN CHEMI[employer]GANIC Ot Z87.891 PERSONAL HISTORY OF NICOTINE DEPENDENCE 08/28/2018 MARLIN GALVAN [employer] Ot J84.10 PULMONARY FIBROSIS, UNSPECIFIED 08/28/2018 MARLIN GALVAN CHEMI[employer]IC Ot Z12.2 ENCNTR SCREEN FOR MALIGNANT NEOPLASM OF 08/28/2018 MARLIN GALVAN CHEMIST [employer]GANIC Ot Z87.891 PERSONAL HISTORY OF NICOTINE DEPENDENCE 09/16/2018 MARLIN GALVAN CHEMIST ORGANIC Ot J84.10 PULMONARY FIBROSIS, UNSPECIFIED 09/16/2018 MARLIN GALVAN CHEMIST [employer]GANIC Ot Z12.2 ENCNTR SCREEN FOR MALIGNANT NEOPLASM OF 09/16/2018 MARLIN GALVAN CHEMI[employer]GANIC Ot Z87.891 PERSONAL HISTORY OF NICOTINE DEPENDENCE Procedures There is no data. Results Test [...] i.cardiac measurement (mass/volume) < ng/ mL <0.30 TESTOSTERONE, FREE AND TOTAL - 03/20/18 09:22 TESTOSTERONE, TOTAL, LC/MS/MS 229 ng/dL 250-1100 TESTOSTERONE, FREE 28.6 pg/mL 46.0-224.0 TESTOSTERONE,BIOAVAILABLE 52.6 ng/dL 110.0-575.0 SEX HORMONE BINDING GLOBULIN 34 nmol/L 22-77 ALBUMIN,SERUM 4.0 g/dL 3.6-5.1 BUN - 03/28/18 11:37 UREA NITROGEN (BUN) 16 mg/dL 7-25 CREATININE, SERUM - 03/28/18 11:37 CREATININE 1.29 mg/dL 0.70-1.33 eGFR NON-AFR. OMANI 60 mL/min/1.73m2 > OR=60 eGFR 70 mL/min/1.73m2 > OR=60 CBC - 08/07/18 08:41 WHITE BLOOD CELL COUNT 7.2 Thousand/uL 3.8-10.8 RED BLOOD CELL COUNT 4.74 Million/uL 4.20-5.80 HEMOGLOBIN 14.9 g/dL 13.2-17.1 HEMATOCRIT 45.0 % 38.5-50.0 MCV 94.9 fL 80.0-100.0 MCH 31.4 pg 27.0-33.0 MCHC 33.1 g/dL 32.0-36.0 RDW 13.6 % 11.0-15.0 PLATELET COUNT 232 Thousand/uL 140-400 MPV 10.7 fL 7.5-12.5 ABSOLUTE NEUTROPHILS 4529 cells/uL 0652-5172 ABSOLUTE LYMPHOCYTES 1951 cells/uL 850-3900 ABSOLUTE MONOCYTES 518 cells/uL 200-950 ABSOLUTE EOSINOPHILS 151 cells/uL 15-500 ABSOLUTE BASOPHILS 50 cells/uL 0-200 NEUTROPHILS 62.9 % NRG LYMPHOCYTES 27.1 % NRG MONOCYTES 7.2 % NRG EOSINOPHILS 2.1 % NRG BASOPHILS 0.7 % NRG Encounters ACCT No. Visit Date/Time Discharge Status Pt. Type Provider Facility Loc./Unit Complaint [id number] 08/24/2018 13:03:00 08/24/2018 23:59:59 CLS Outpatient MARLIN GALVAN [facility] RAD PERSONAL HX OF NICOTINE DEPENDENCE [id number] 08/02/2018 15:33:00 08/02/2018 23:59:59 CLS Preadmit MARLIN GALVAN [facility] RAD PERSONAL HX OF NICOTINE DEPENDENCE [id number] 03/03/2018 20:20:00 03/03/2018 21:31:00 DIS Emergency ERIC NOVOA APRN [facility] ER COLD SYMPTOMS [id number] 11/27/2017 15:56:00 11/27/2017 19:36:00 DIS Emergency CARLOS TINOCO MD [facility] ER SINUS DRAINAGE,COUGH, CONGESTION [id number] 07/28/2017 13:04:00 07/28/2017 23:59:59 CLS Outpatient SINDY LANDAVERDE DO [facility] RAD LOW BACK PAIN [id number] 05/03/2017 12:05:00 05/03/2017 23:59:59 CLS Outpatient DERIK BARRY [employer] [facility] RAD I73.9 [id number] 04/06/2017 14:58:00 04/06/2017 23:59:59 CLS Outpatient JUVE GASTELUM CHEMIST ORGANIC [facility] RAD PVD I73.9 [id number] 03/16/2013 09:40:00 03/16/2013 12:50:00 DIS Outpatient NOREEN COLLADO MD [facility] SDC GERD; SCREENING [id number] 03/15/2013 08:06:00 03/15/2013 23:59:59 CLS Outpatient NOREEN COLLADO MD [facility] PREOP GERD; SCREENING [id number] 12/14/2016 07:05:00 Document Registration [id number] 11/21/2018 11:40:00 11/21/2018 23:59:59 C[facility] [place] [id number] 08/07/2018 08:30:00 Document Registration [id number] 03/28/2018 11:40:00 Document Registration [id number] 03/20/2018 09:40:00 Document Registration [id number] 11/25/2017 08:20:00 Document Registration [id number] 11/21/2017 16:20:00 Document Registration
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
[2018-12-22] MEDS ORDERED: HYDROcodone/APAP 5 MG/325 MG (LORTAB) TAB PO ONE (15:45)
[2018-12-22 16:22] VITALS: BP 143/71
== END 2018-12-22 16:30 | disposition home or self-care (01) ==
LOC: EDUNIT# 13:42 → ER 13:43
DX: M54.2 Cervicalgia (principal); I10 Essential (primary) hypertension; Z88.8 Allergy status to other drugs, medicaments and biological substances; Z79.82 Long term (current) use of aspirin; Z95.820 Peripheral vascular angioplasty status with implants and grafts; V49.50XA Passenger injured in collision with unspecified motor vehicles in traffic accident, initial encounter
CPT/HCPCS: 70450; 72125; 73522

== ENCOUNTER → 2019-05-07 | Outpatient (CLI) | payer MEDICARE, OTHER ==
[2019-05-07 09:44] LABS: BILIRUBIN,DIRECT 0.2 MG/DL (0.0-0.3); BILIRUBIN,INDIRECT 0.2 MG/DL; BILIRUBIN,TOTAL 0.4 MG/DL (0.1-1.0)
== END ==
LOC: LAB 09:16
PROVIDERS: ATTEND Podiatrist Foot & Ankle Surgery
DX: B35.1 Tinea unguium (principal)
CPT/HCPCS: 36415; 80076

== ENCOUNTER 2019-06-27 10:11 | Outpatient (RCR) | payer MEDICARE ==
[2019-06-27 11:03] LABS: ALBUMIN 3.9 GM/DL (3.2-4.5); BILIRUBIN,DIRECT 0.1 MG/DL (0.0-0.3); BILIRUBIN,INDIRECT 0.2 MG/DL; BILIRUBIN,TOTAL 0.3 MG/DL (0.1-1.0); TOTAL PROTEIN 7.1 GM/DL (6.4-8.2)
== END 2019-09-25 | disposition home or self-care (01) ==
LOC: LAB 10:11
PROVIDERS: ATTEND Podiatrist Foot & Ankle Surgery
DX: B35.1 Tinea unguium (principal)
CPT/HCPCS: 36415; 80076

== ENCOUNTER → 2019-11-05 | Outpatient (CLI) | payer MEDICARE ==
--- NOTE | 2019-11-05 15:03 | Diagnostic Imaging Report ---
INDICATION: Tobacco use qualifying for lung screening. Patient has a 35 pack-year smoking history. Patient quit smoking 12 years previous. COMPARISON: 08/24/2018. TECHNIQUE: Multiple contiguous axial images were obtained through the chest utilizing low-dose protocol without the use of intravenous contrast. Sagittal and coronal reformations were than performed. FINDINGS: There is an 8 mm calcified granuloma in the right upper lobe on image 49/series 2. There is a 9 mm calcified granuloma in the right middle lobe on image 102/series 2 There is an 11 mm calcified granuloma in the right lower lobe laterally on image 161/series 2. There is a 6 mm calcified granuloma in the left lower lobe on image 112/series 2. There is a 5 mm calcified granuloma in the medial aspect of the left lower lobe on image 142/series 2. There is a 4 mm calcified granuloma in the left lower lobe on image 134/series 2. There are no noncalcified nodules. There is no pleural or pericardial fluid. There is no pneumothorax. There are calcified granulomas in the theron bilaterally. There are coronary artery calcifications. There is no pathologically enlarged adenopathy in the chest. The heart size is normal. The ascending aorta measures up to 4.4 cm. The visualized intra-abdominal structures are unremarkable. There is moderate thoracic spondylosis. IMPRESSION: Lung-RADS category 1: Continued low dose CT screening in 12 months. ADDITIONAL FINDINGS: Coronary artery calcifications. Ascending aorta measures up to 4.4 cm. Dictated by: Dictated on workstation # [id number]
== END ==
LOC: RAD 13:13
PROVIDERS: ATTEND Nurse Practitioner Family
DX: Z12.2 Encounter for screening for malignant neoplasm of respiratory organs (principal); I25.10 Atherosclerotic heart disease of native coronary artery without angina pectoris; Z87.891 Personal history of nicotine dependence

== ENCOUNTER 2020-08-10 17:25 | Inpatient (IN) | payer MEDICARE ==
[~2020-08-10] VITALS: Ht 182 cm; Wt 121.3 kg
[2020-08-10] MEDS ORDERED: PROPOFOL DRIP (ICU) 100 ML IV ONE (17:46)
--- NOTE | 2020-08-10 18:05 | NUR ---
5 VERSED AND 100MCG FENTYL GIVEN ORDERED
[2020-08-10] MEDS ORDERED: LACTATED RINGERS 1,000 ML IV ONE (18:23)
[2020-08-10 18:34] LABS: BILIRUBIN,URINE NEGATIVE (NEGATIVE); CLARITY,URINE CLOUDY; COLOR,URINE YELLOW; GLUCOSE, URINE (UA) NEGATIVE (NEGATIVE); KETONES,URINE NEGATIVE (NEGATIVE); LEUKOCYTE ESTERASE ,URINE NEGATIVE (NEGATIVE); NITRITE,URINE NEGATIVE (NEGATIVE); PROTEIN,URINE 2+ (NEGATIVE)
[2020-08-10 18:34] LABS: BASOPHILS % (AUTO) 0 % (0-10); EOSINOPHILS % (AUTO) 0 % (0-10); HEMATOCRIT 44 % (40-54); HEMOGLOBIN 13.9 g/dL (13.3-17.7); LYMPHOCYTES # (AUTO) 1.3 10^3/uL (1.0-4.0); LYMPHOCYTES % (AUTO) 14 % (12-44); MEAN CORPUSCULAR HEMOGLOBIN 31 pg (25-34); MEAN CORPUSCULAR HGB CONC 31 g/dL (32-36); MEAN CORPUSCULAR VOLUME 100 fL (80-99); MEAN PLATELET VOLUME 11.3 fL (9.0-12.2); MONOCYTES # (AUTO) 0.7 10^3/uL (0.0-1.0); MONOCYTES % (AUTO) 7 % (0-12); NEUTROPHILS # (AUTO) 7.4 10^3/uL (1.8-7.8); NEUTROPHILS % (AUTO) 77 % (42-75); PLATELET COUNT 255 10^3/uL (130-400); WHITE BLOOD COUNT 9.6 10^3/uL (4.3-11.0)
[2020-08-10 18:37] LABS: ALBUMIN 3.7 GM/DL (3.2-4.5)
[2020-08-10 18:38] LABS: POTASSIUM 4.3 MMOL/L (3.6-5.0)
[2020-08-10 18:39] LABS: CALCIUM 8.3 MG/DL (8.5-10.1)
[2020-08-10 18:40] LABS: TOTAL PROTEIN 7.7 GM/DL (6.4-8.2)
[2020-08-10 18:41] LABS: PROTHROMBIN TIME PATIENT 13.8 SEC (12.2-14.7)
[2020-08-10 18:42] LABS: BILIRUBIN,TOTAL 0.8 MG/DL (0.1-1.0)
[2020-08-10 18:44] LABS: CREATININE SERUM 2.44 MG/DL (0.60-1.30)
[2020-08-10] MEDS ORDERED: NOREPINEPHRINE 4 MG/250 ML 250 ML IV ONE (18:45)
[2020-08-10] MEDS ORDERED: NOREPINEPHRINE 4 MG/250 ML 250 ML IV SCH (18:45)
--- NOTE | 2020-08-10 18:45 | ED Respiratory ---
General Stated Complaint: COVID/SOB Source: patient, EMS Exam Limitations: clinical condition History of Present Illness Date Seen by Provider: Aug 10, 2020 Time Seen by Provider: 17:40 Initial Comments Patient presents by EMS from home in extremis with shortness of air oxygen sats 75% on nonrebreather flush. He was diagnosed with COVID 19 7 days ago. He's had diarrhea nausea vomiting weakness. He has had fever. He has hypertension hyperlipidemia prediabetes and history of peripheral arterial disease followed by Dr. Graves. He sees a lung doctor for some reason. He denies a history of coronary disease. He denies chest pain. Primary care by a [facility]. He is a full code. Allergies and Home Medications Allergies Coded Allergies: niacin (Unverified Allergy, 03/16/13) Home Medications Aspirin 325 Mg Tab, 325 MG PO DAILY, (Reported) Cefuroxime Axetil 500 Mg Tablet, 500 MG PO BID Prescribed by: ERIC NOVOA on 03/03/182052 Enalapril Maleate 10 Mg Tab, 10 MG GT DAILY, (Reported) Guaifenesin/Dextromethorphan 1 Each Tablet, 1 EACH PO Q4H PRN for COUGH Prescribed by: ERIC NOVOA on 03/03/182052 Pantoprazole Sodium 40 Mg Tablet.dr, 40 MG PO DAILY, (Reported) Sucralfate 1 Gm Tab, 1 GM PO ACHS PRN, (Reported) Patient Home Medication List Home Medication List Reviewed: Yes Review of Systems Review of Systems Constitutional: chills, diaphoresis, fever, malaise, weakness EENTM: No ear discharge, No ear pain Respiratory: cough, short of breath Cardiovascular: No chest pain, No Hx of Intervention, No palpitations, No syncope, No vascular heart diseas Gastrointestinal: No abdominal pain, No constipation; diarrhea, nausea, vomiting Genitourinary: No discharge, No dysuria Musculoskeletal: No back pain, No joint pain Skin: No pruritus, No rash Psychiatric/Neurological: Denies Headache, Denies Numbness All Other Systems Reviewed Negative Unless Noted: Yes Past Htfwlsh-Foasrb-Moyoxy Hx Patient Social History Alcohol Use: Denies Use Recreational Drug Use: No Smoking Status: Never a Smoker 2nd Hand Smoke Exposure: No Recent Hopitalizations: No Past Medical History Surgeries: Yes (STENTS IN RT LEG, BI LAT HANDS, RT KNEE) Eye Surgery, Orthopedic Respiratory: No Cardiac: Yes Hypertension Neurological: No Genitourinary: No Gastrointestinal: No Musculoskeletal: No Endocrine: No Cancer: No Integumentary: No Physical Exam Vital Signs - First Documented 08/10/20 17:28 Pulse 114 Resp 10 B/P (MAP) 124/87 Pulse Ox 74 O2 Delivery Non Rebreather O2 Flow Rate 15.00 FiO2 100 Capillary Refill : Height: 5'9.00" Weight: 243lbs. 0oz. [id number]; BMI Method:Stated General Appearance: severe distress, obese Eyes: Bilateral Eye Normal Inspection, Bilateral Eye PERRL, Bilateral Eye EOMI HEENT: PERRL/EOMI, TMs normal, pharynx normal Neck: full range of motion, supple, normal inspection Respiratory: lungs clear, respiratory distress, decreased breath sounds, accessory muscle use, other (oxygen saturations in the mid 70s on nonrebreather at flush in the prone position) Cardiovascular: normal peripheral pulses, regular rate, rhythm, no edema Gastrointestinal: normal bowel sounds, non tender, soft Extremities: non-tender, normal inspection, no pedal edema, slow capillary refill Neurologic/Psychiatric: no motor/sensory deficits, alert, oriented x 3 Skin: other (acrocyanosis, perioral cyanosis) Focused Exam Sepsis Stage: Septic Shock Possible Source: Pulmonary Lactate Level 08/10/20 18:40: Lactic Acid Level 4.36*H Time of Focused Exam: 19:19 Respiratory: Lungs Clear, Other (intubated in the prone position) Cardiovascular: Regular Rate, Rhythm, Normal Peripheral Pulses, Tachycardia (105) Capillary Refill: Less Than 3 Seconds Peripheral Pulses: 2+ Radial Pulses (R), 2+ Radial Pulses (L) Skin: normal color, warm/dry Lactic Acid Level Laboratory Tests Test 08/10/20 18:40 Lactic Acid Level 4.36 MMOL/L (0.50-2.00) *H Within 3hrs of presentation: Admin fluids, Admin 30ml/kg IBW due to BMI>30, Admin ABX, Blood cultures prior to ABX's, Focus exam, Lactate level, Other Procedures/Interventions Lumen: triple Central Line Procedure: betadine prep (chlorhexidine prep), sterile drapes applied, sterile dressing applied Position: internal jugular (R) Anesthesia: Lidocaine (1% lidocaine) Volume Anesthetic (ccs): 3 Complications: none Post Position: sutured, good blood return, position confirmed w/ CXR Risks, benefits and alternatives were discussed with the patient and he was emergently consented to the procedure. He was positioned in the usual format and using the usual sterile garment and drapes the patient was dressed out. The skin was thoroughly cleaned with the supplied chlorhexidine prep. After the prep and dried a sterile drape was placed. The 20 cm 7 [place] triple-lumen catheter was flushed with sterile saline. We used ultrasound guidance to pass the introducer needle into the right internal jugular without difficulty. A guidewire was placed easily without difficulty. No ectopy was seen on the monitor. The supplied 11 blade scalpel was used to make a 2 mm incision at the inferior portion of the introducer needle. The introducer needle was replaced with the dilator. The dilator was taken out and the patient had the central lumen of the triple lumen catheter threaded over the guidewire and placed at 14 cm. The guidewire was removed and the triple-lumen catheter was stitched in place using the supplied braided stitch at 2 different points. The catheter withdrew blood and flushed easily. A sterile dressing was placed over the catheter. The patient tolerated the procedure well. A chest x-ray was obtained that demonstrated no pneumothorax and a new interval central catheter over the shadow of the right internal jugular down the superior vena cava and terminating just proximal to the right atria. Reason for Intubation: acute respiratory failure SARs Date of ETT Placement: Aug 10, 2020 Time of ETT Placement: 1808 Intubation Method: orotracheal Tube Size: 8.0 Medications: Etomidate (40 mg), Rocuronium (50 mg) Positive End Tide CO2: Yes Breath Sounds after Intubation: bilateral-equal (oxygen sats began to improve) Intubation Complications: no complications, O2 saturation decreased (oxygen saturation started about 80% and did not go below 80% during the first and only attempt) Post Intubation Xray: Yes good position 2-1/2 senna meter's above the jason without pneumothorax Using a nasal trumpet and [id number] and 100% FiO2 we were able to get his oxygen saturations to about 80% at best. Video laryngoscopy, towel roll for positioning and seated positioning was used to maximize oxygenation. Attempts times one. Progress/Results/Core Measures Suspected Sepsis SIRS Temperature: Pulse: 95 Respiratory Rate: 24 Laboratory Tests 08/10/20 17:38: White Blood Count 9.6 Blood Pressure / Mean: 08/10/20 18:40: Lactic Acid Level 4.36*H Laboratory Tests 08/10/20 17:38: Creatinine 2.44H, INR Comment 1.0, Platelet Count 255, Total Bilirubin 0.8 Results/Orders Lab Results Laboratory Tests Test 08/10/20 17:38 08/10/20 17:45 08/10/20 18:40 Range/Units White Blood Count 9.6 4.3-11.0 10^3/uL Red Blood Count 4.43 4.30-5.52 10^6/uL Hemoglobin 13.9 13.3-17.7 g/dL Hematocrit 44 40-54 % Mean Corpuscular Volume 100 H 80-99 fL Mean Corpuscular Hemoglobin 31 25-34 pg Mean Corpuscular Hemoglobin Concent 31 L 32-36 g/dL Red Cell Distribution Width 13.8 10.0-14.5 % Platelet Count 255 130-400 10^3/uL Mean Platelet Volume 11.3 9.0-12.2 fL Immature Granulocyte % (Auto) 3 % Neutrophils (%) (Auto) 77 H 42-75 % Lymphocytes (%) (Auto) 14 12-44 % Monocytes (%) (Auto) 7 0-12 % Eosinophils (%) (Auto) 0 0-10 % Basophils (%) (Auto) 0 0-10 % Neutrophils # (Auto) 7.4 1.8-7.8 10^3/uL Lymphocytes # (Auto) 1.3 1.0-4.0 10^3/uL Monocytes # (Auto) 0.7 0.0-1.0 10^3/uL Eosinophils # (Auto) 0.0 0.0-0.3 10^3/uL Basophils # (Auto) 0.0 0.0-0.1 10^3/uL Immature Granulocyte # (Auto) 0.3 H 0.0-0.1 10^3/uL Prothrombin Time 13.8 12.2-14.7 SEC INR Comment 1.0 0.8-1.4 Activated Partial Thromboplast Time 27 24-35 SEC Sodium Level 134 L 135-145 MMOL/L Potassium Level 4.3 3.6-5.0 MMOL/L Chloride Level 96 L 98-107 MMOL/L Carbon Dioxide Level 15 L 21-32 MMOL/L Anion Gap 23 H 5-14 MMOL/L Blood Urea Nitrogen 61 H 7-18 MG/DL Creatinine 2.44 H 0.60-1.30 MG/DL Estimat Glomerular Filtration Rate 27 BUN/Creatinine Ratio 25 Glucose Level 245 H 70-105 MG/DL Calcium Level 8.3 L 8.5-10.1 MG/DL Corrected Calcium 8.5 8.5-10.1 MG/DL Total Bilirubin 0.8 0.1-1.0 MG/DL Aspartate Amino Transf (AST/SGOT) 158 H 5-34 U/L Alanine Aminotransferase (ALT/SGPT) 74 H 0-55 U/L Alkaline Phosphatase 50 40-136 U/L Lactate Dehydrogenase 766 H 125-220 U/L C-Reactive Protein High Sensitivity 10.67 H 0.00-0.50 MG/DL Total Protein 7.7 6.4-8.2 GM/DL Albumin 3.7 3.2-4.5 GM/DL Procalcitonin 2.17 H <0.10 NG/ML Smear Scan YES Urine Color YELLOW Urine Clarity CLOUDY Urine pH 6.0 5-9 Urine Specific [place] >=1.030 1.016-1.022 Urine Protein 2+ H NEGATIVE Urine Glucose (UA) NEGATIVE NEGATIVE Urine Ketones NEGATIVE NEGATIVE Urine Nitrite NEGATIVE NEGATIVE Urine Bilirubin NEGATIVE NEGATIVE Urine Urobilinogen 0.2 < = 1.0 MG/DL Urine Leukocyte Esterase NEGATIVE NEGATIVE Urine RBC (Auto) NEGATIVE NEGATIVE Urine RBC NONE /HPF Urine WBC NONE /HPF Urine Crystals NONE /LPF Urine Bacteria NEGATIVE /HPF Urine Casts PRESENT /LPF Urine Hyaline Casts 5-10 H /LPF Urine Mucus NEGATIVE /LPF Urine Culture Indicated NO Lactic Acid Level 4.36 *H 0.50-2.00 MMOL/L My Orders Orders - JAIDEN RUIZ Propofol Drip (Icu) (Diprivan Drip (Icu) (08/10/20 17:46) Norepinephrine 4 Mg/250 Ml (Norepinephri (08/10/20 18:45) Norepinephrine 4 Mg/250 Ml (Norepinephri (08/10/20 18:45) Dexamethasone Injection (Decadron Inje (08/10/20 19:15) Medications Given in ED Current Medications Medications Dose Ordered Sig/Chris Route Start Time Stop Time Status Last Admin Dose Admin Dexamethasone Sodium Phosphate 6 mg ONCE ONCE IV 08/10/20 19:15 08/10/20 19:17 DC 08/10/20 19:21 6 MG Lactated Ringer's 1,000 ml @ 0 mls/hr Q0M ONCE IV 08/10/20 18:23 08/10/20 18:27 DC 08/10/20 17:54 0 MLS/HR Propofol 100 ml @ ud STK-MED ONCE IV 08/10/20 17:46 08/10/20 17:49 DC 08/10/20 18:01 26 MLS/HR Vital Signs/I&O 08/10/20 08/10/20 08/10/20 08/10/20 17:28 17:28 17:28 18:01 Pulse 114 114 114 Resp 10 B/P (MAP) 124/87 124/78 (93) 123/87 Pulse Ox 74 74 74 O2 Delivery Non Rebreather Non Rebreather Non Rebreather O2 Flow Rate 15.00 15.00 15.00 FiO2 100 08/10/20 08/10/20 08/10/20 18:08 18:48 18:57 Pulse 95 84 Resp 24 B/P (MAP) 98/63 Pulse Ox 84 89 O2 Delivery Mechanical Ventilator FiO2 100 100 Capillary Refill : Diagnostic Imaging Diagonstic Imaging: Xray Plain Films/CT/US/NM/MRI: chest Comments [facility], [place] NAME: CHARLIE MONTELONGO J Luis [facility] REC#: [id number] PT STATUS: REG ER : 1960 PHYSICIAN: HELGA LUKE MD ADMIT DATE: 08/10/20/ER Draft Date of Exam:08/10/20 CHEST 1 VIEW, AP/PA ONLY INDICATION: Respiratory distress. EXAMINATION: Portable erect AP chest at 6:23 p.m. FINDINGS: The heart is mildly enlarged and the heart does seem more prominent than noted on the prior exam of 03/03/2018. In the interval since the prior study, vague alveolar/interstitial infiltrates have developed in the right perihilar region and in the periphery of the left upper lobe. There is also pneumonia/atelectasis in the left lung base and there may be a small left pleural effusion present as well. The mediastinum is not widened. The osseous structures are intact. The total shoulder prosthesis on the left, seen previously, is again evident. The patient has been intubated and the ET tube appears to be in good position. There is also an NG line in place. The tip of the line is difficult to visualize but the line does extend below the diaphragm. A central venous catheter has also been inserted on the right. The tip of the catheter overlies the proximal superior vena cava and seems to be in good position. IMPRESSION: 1. There is cardiomegaly and bilateral pneumonia/atelectasis and a small left pleural effusion. 2. The newly inserted supportive tubes and lines seem to be in good position. Dictated on workstation # [id number] Dict: 08/10/201840 Trans: 08/10/201851 [id number] Interpreted by: JOSLYN MARSHALL MD Electronically signed by: Reviewed: Reviewed by Me Critical Care Note Critical Care Start Time: 17:40 Stop Time: 19:00 Total Time (minutes) 80m Progress Patient was prolonged and intubated and a central line was placed. Patient tolerated intubation and we had to make several adjustments throughout both ways to get a good oxygenation and balanced with his hypertension. Most recently we put him at a peep of 17, FiO2 of 100%, rate of 18, tidal volume of 550 and he is maintaining a sat of 90% and a decent blood pressure of 129/70 405. His CO2 is 41 so we are trying to slightly increase his minute ventilation. Report was given to eICU. Decadron 6 mg IV was given. We decided to hold off on IV an tibiotics until we see evidence of bacterial infection. Blood cultures and lactate were obtained. Patient had 3 L of lactated Ringer's ordered. Levophed was called for but we did not actually start it as we're able to manage intrathoracic pressures using the ventilator adequately to avoid inducing hypotension. We did talk to the spouse by calling her at [phone] and gave her an update before going to the ICU. OG and a Mccullough catheter were placed. A rectal thermistor was placed. Departure Communication (Admissions) Time/Spoke to Admitting Phy: 19:00 Discussed the case with Dr. Muñoz and she agrees to admit the patient ICU with eICU consult. Decadron and pronating, and the patient's underlying discussed. We are holding off antibiotics pending evidence of bacterial infection. Influenza test is pending. Time/Spoke to Consulting Phy: 19:15 Discussed the case with Dr. Marci Bradley and gave report. Impression Primary Impression: COVID-19 Additional Impressions: Acute respiratory failure with hypoxemia Septic shock Disposition: ADMITTED INPATIENT Condition: Critical Admissions Decision to Admit Reason: Admit from ER (General) Decision to Admit/Date: Aug 10, 2020 Time/Decision to Admit Time: 18:00 Departure-Patient Inst. Referrals: [facility] ([facility]Family) Primary Care Physician JAIDEN RUIZ Aug 10, 2020 18:45
[2020-08-10 18:48] LABS: BACTERIA,URINE NEGATIVE /HPF
--- NOTE | 2020-08-10 18:52 | Diagnostic Imaging Report ---
INDICATION: Respiratory distress. EXAMINATION: Portable erect AP chest at 6:23 p.m. FINDINGS: The heart is mildly enlarged and the heart does seem more prominent than noted on the prior exam of 03/03/2018. In the interval since the prior study, vague alveolar/interstitial infiltrates have developed in the right perihilar region and in the periphery of the left upper lobe. There is also pneumonia/atelectasis in the left lung base and there may be a small left pleural effusion present as well. The mediastinum is not widened. The osseous structures are intact. The total shoulder prosthesis on the left, seen previously, is again evident. The patient has been intubated and the ET tube appears to be in good position. There is also an NG line in place. The tip of the line is difficult to visualize but the line does extend below the diaphragm. A central venous catheter has also been inserted on the right. The tip of the catheter overlies the proximal superior vena cava and seems to be in good position. IMPRESSION: 1. There is cardiomegaly and bilateral pneumonia/atelectasis and a small left pleural effusion. 2. The newly inserted supportive tubes and lines seem to be in good position. Dictated by: Dictated on workstation # [id number]
[2020-08-10 19:03] LABS: SMEAR SCAN COMMENT YES
--- NOTE | 2020-08-10 19:05 | NUR ---
Patients : Ana Ray [phone]
--- NOTE | 2020-08-10 19:06 | NUR ---
1736 40mg Etomidate 1738 50mg Rocuronium 1738 Bagging patient via BVM with npa airway adjunct, patient placed in ramp positioning to improve oxygenation and faciliate intubation. 1739 8.0 ETT placed 25cm @ gum via Dr. Kumar, verification of ETT placement with bilateral breath sounds present, misting in the ETT and ETCO2 waveform capnography reading of 33. 1742 OG tube placement, verification via 60cc syringe and secretions in the tube. 1745 100mcg Fentanyl 1747 5mg Versed 1750 Mccullough cather placed with urine output noted 1754 1Liter Lactated Ringers initiated, 500cc bolus administered. 1758 Central line placement per Dr. Kumar 1801 Propofol initiated via peripheral IV access at 40mcg/kg/min or 26.2ml/hr 1805 Verification of Central line and ETT placement via chest xray Pressure dressing were applied to the patient prior to prone positioning. Patient was moved via multi-person lift. Verification of ETT placement post positioning into the ICU bed via bilateral breath sounds, misting in the ETT and ETCO2 waveform capnography of 35.
[2020-08-10] MEDS ORDERED: fentaNYL INJECTION 100 MCG/2 ML AMP ONE (19:28)
[2020-08-10] MEDS ORDERED: fentaNYL INJECTION 100 MCG/2 ML AMP IVP ONE (19:30)
--- NOTE | 2020-08-10 19:35 | NUR ---
100MCG FENTLY GIVEN IV
--- NOTE | 2020-08-10 20:00 | NUR ---
BEDSIDE REPORT RECEIVED FROM MANNY JORDAN.
--- NOTE | 2020-08-10 20:07 | NUR ---
PATIENT TO ICU PER BED. ASSISTED BY THIS GAS MAIN FITTER HELPER, ED PCT, ICU,RN , AND ED PHYSICIAN. TAKEN OFF ED MONITORS AND PLACED ON ICU MONITORS.
[2020-08-10] MEDS: NOREPINEPHRINE 4 MG/250 ML 250 ML IV SCH (20:30)
[2020-08-10] MEDS ORDERED: ACETAMINOPHEN 650 MG SUPP (TYLENOL) PR PRN (20:45)
[2020-08-10] MEDS ORDERED: LACTATED RINGERS 1,000 ML IV SCH ×2 (20:45→20:47)
[2020-08-10] MEDS ORDERED: ONDANSETRON 4 MG/2 ML (SDV) Z0FRAN IVP PRN (20:45)
[2020-08-10 20:55] LABS: ABG BASE EXCESS -3.6 MMOL/L (-2.5-2.5); ABG OXYGEN SATURATION 96 % (94-100); ABG PCO2 44 MMHG (35-45); ABG PO2 112 MMHG (79-93); ABG TCO2 23.1 MMOL/L (21.0-31.0)
[2020-08-10 20:57] LABS: ABG PH 7.31 (7.37-7.43)
[2020-08-10 20:58] LABS: INSPIRED O2 85; PATIENT TEMP 36.7; VENTILATOR YES
[2020-08-10] MEDS ORDERED: cefTRIAXone FOR IV USE 2,000 MG in WATER (STERILE) FOR INJECTION 20 ML IV SCH (21:00)
[2020-08-10] MEDS ORDERED: cefTRIAXone 1,000 MG/SWFI 10 ML IV PUSH IV SCH ×2 (21:00)
[2020-08-10] MEDS ORDERED: inSUlin ASPART (NovoLOG) 1 UNIT/0.01 ML (CHARGE PER UNIT) SC SCH (21:00)
[2020-08-10] MEDS ORDERED: AZITHROMYCIN INJECTION 500 MG in NS (IVPB) 250 ML IV SCH (21:45)
[2020-08-10] MEDS: RT-ALBUTEROL INHALER HFA (VENTOLIN HFA) 18 GM IH SCH (23:00)
[2020-08-10] MEDS: inSUlin ASPART (NovoLOG) 1 UNIT/0.01 ML (CHARGE PER UNIT) SC SCH (23:20)
[2020-08-11] MEDS: NOREPINEPHRINE 4 MG/250 ML 250 ML IV SCH ×3 (02:05→21:49)
[2020-08-11 02:07] LABS: BASOPHILS % (AUTO) 0 % (0-10); EOSINOPHILS % (AUTO) 0 % (0-10); HEMATOCRIT 39 % (40-54); HEMOGLOBIN 12.4 g/dL (13.3-17.7); LYMPHOCYTES # (AUTO) 1.1 10^3/uL (1.0-4.0); LYMPHOCYTES % (AUTO) 8 % (12-44); MEAN CORPUSCULAR HEMOGLOBIN 32 pg (25-34); MEAN CORPUSCULAR HGB CONC 32 g/dL (32-36); MEAN CORPUSCULAR VOLUME 98 fL (80-99); MEAN PLATELET VOLUME 10.8 fL (9.0-12.2); MONOCYTES # (AUTO) 0.5 10^3/uL (0.0-1.0); MONOCYTES % (AUTO) 4 % (0-12); NEUTROPHILS # (AUTO) 11.5 10^3/uL (1.8-7.8); NEUTROPHILS % (AUTO) 86 % (42-75); PLATELET COUNT 256 10^3/uL (130-400); WHITE BLOOD COUNT 13.5 10^3/uL (4.3-11.0)
[2020-08-11 02:22] LABS: ALBUMIN 3.2 GM/DL (3.2-4.5); POTASSIUM 4.4 MMOL/L (3.6-5.0)
[2020-08-11 02:23] LABS: CALCIUM 7.7 MG/DL (8.5-10.1)
[2020-08-11 02:25] LABS: TOTAL PROTEIN 6.6 GM/DL (6.4-8.2)
[2020-08-11 02:27] LABS: BILIRUBIN,TOTAL 0.9 MG/DL (0.1-1.0)
[2020-08-11 02:28] LABS: CREATININE SERUM 1.97 MG/DL (0.60-1.30); PHOSPHORUS 4.1 MG/DL (2.3-4.7)
[2020-08-11 02:32] LABS: MAGNESIUM 2.7 MG/DL (1.6-2.4)
[2020-08-11 02:47] VITALS: BP 112/77
[2020-08-11] MEDS: RT-ALBUTEROL INHALER HFA (VENTOLIN HFA) 18 GM IH SCH ×6 (02:47→23:03)
[2020-08-11 03:06] LABS: BAND NEUTROPHILS 5 %; LYMPHOCYTES % (MANUAL) 5 %; MONOCYTES % (MANUAL) 5 %; NEUTROPHILS % (MANUAL) 80 %
[2020-08-11 03:07] LABS: ATYPICAL LYMPHOCYTES 3 %; NUCLEATED RED BLOOD CELLS 1; PLATELET CLUMPS SLIGHT; POLYCHROMASIA MODERATE; REACTIVE LYMPHOCYTES 2 %; SMUDGE CELLS SLIGHT
[2020-08-11] MEDS: MAGNESIUM 1 GM/100 ML IVPB 100 ML IV SCH (03:41)
[2020-08-11] MEDS: POTASSIUM CL 10MEQ/50ML IVPB 50 ML IV SCH (03:41)
[2020-08-11 03:43] LABS: ABG BASE EXCESS -4.8 MMOL/L (-2.5-2.5); ABG PCO2 23 MMHG (35-45); ABG PO2 142 MMHG (79-93); ABG TCO2 18.8 MMOL/L (21.0-31.0)
[2020-08-11 03:45] LABS: ALLENS TEST POSITIVE; INSPIRED O2 70; PATIENT TEMP 36.2; VENTILATOR YES
[2020-08-11] MEDS: inSUlin ASPART (NovoLOG) 1 UNIT/0.01 ML (CHARGE PER UNIT) SC SCH ×4 (05:13→18:05)
[2020-08-11 06:42] VITALS: BP 104/75
[2020-08-11] MEDS ORDERED: NS IV 500 ML 500 ML ONE (07:34)
--- NOTE | 2020-08-11 07:55 | Diagnostic Imaging Report ---
INDICATION: Hypoxia and septic shock. AP view of the chest is obtained with comparison made to study of one day earlier. Cardiomegaly is not significantly changed. Bilateral pulmonary opacity is also similar with generalized groundglass density in both lungs with area of more superimposed consolidation left lower lobe. No pneumothorax is identified. Endotracheal tube is in place with tip below the thoracic inlet and just above the jason. Nasogastric tube reaches the upper stomach. There is right jugular central venous catheter in place without evidence of pneumothorax. IMPRESSION: Bilateral pulmonary opacities have remained stable and would be compatible with edema, pneumonitis and possible superimposed left lower lobe pneumonia. Dictated by: Dictated on workstation # [id number]
[2020-08-11] MEDS ORDERED: REMDESIVIR INJ 200 MG in NS (IVPB) 210 ML IV NR (08:00)
--- NOTE | 2020-08-11 09:08 | Anesthesia-Procedure Note ---
Procedures/Interventions Procedure Start/Stop/Diagnosis Date of Procedure: Aug 11, 2020 Start Time: 08:35 Stop Time: 08:57 Arterial Line Arterial Line Catheter: 20G Type: Radial Location: Left (US guided Attempts X3) Procedure: prepped, draped in sterile fashion, good wave-form was obtained, patient tolerated procedure well, no immediate complications, post procedure area cleaned, post procedure dressing applied LEANNA ELMORE CRNA Aug 11, 2020 09:08
[2020-08-11] MEDS: ENOXAPARIN 40 MG/0.4 ML (LOVENOX) SYR SC SCH (09:21)
[2020-08-11] MEDS: PANTOPRAZOLE 40 MG (PROTONIX) VIAL IV SCH (09:21)
[2020-08-11 10:22] VITALS: BP 94/57
[2020-08-11] MEDS ORDERED: PIPERACILLIN/TAZOBACTAM (BULK) 4.5 GM in NS (IVPB) 100 ML IV ONE (10:30)
[2020-08-11] MEDS ORDERED: VANCOMYCIN INJECTION 2,250 MG in NS IV 500 ML 500 ML IV NR (11:08)
[2020-08-11] MEDS: fentaNYL DRIP PRE-MIX 250 ML IV SCH (12:56)
--- NOTE | 2020-08-11 13:44 | History & Physical-Hospitalist ---
History of Present Illness HPI/Chief Complaint Cal Ray Jr is a 60-year-old male with past medical history of hypertension, hyperlipidemia, peripheral arterial disease, GERD, prediabetes, who presented with fever and shortness of breath. At the time of my examination he is intubated and sedated. Source: patient Exam Limitations: clinical condition Date Seen 08/11/20 Time Seen by a Provider: 09:35 Attending Physician Luiza Muñoz MD PCP [facility],Michael Ponce Referring Physician Date of Admission Aug 10, 2020 at 19:21 Home Medications & Allergies Home Medications Reviewed patient Home Medication Reconciliation performed by pharmacy medication reconciliations instrument and controls technician and/or nursing. Patients Allergies have been reviewed. Allergies Allergies Coded Allergies niacin (Unverified Allergy, Unknown, 08/10/20) Past Nyvvdvc-Kdhhiw-Fbsisv Hx Past Med/Social Hx: Reviewed Nursing Past Med/Soc Hx Patient Social History Alcohol Use: Denies Use Recreational Drug Use: No Smoking Status: Never a Smoker 2nd Hand Smoke Exposure: No Recent Foreign Travel: No Contact w/other who traveled: No Recent Hopitalizations: No Recent Infectious Disease Expo: No Past Medical History Surgeries: Eye Surgery, Orthopedic Cardiac: Hypertension Review of Systems ROS-Unable to Obtain: intubated and sedated Constitutional: see HPI Physical Exam Physical Exam Vital Signs Vital Signs - First Documented 08/10/20 08/10/20 17:28 20:10 Temp 36.7 Pulse 114 Resp 10 B/P (MAP) 124/87 Pulse Ox 74 O2 Delivery Non Rebreather O2 Flow Rate 15.00 FiO2 100 Capillary Refill : Less Than 3 Seconds Height, Weight, BMI Height: 5'9.00" Weight: 243lbs. 0oz. 110.080469wr; 33.00 BMI Method:Stated General Appearance: No Apparent Distress, Obese, Other (intubated and sedated) HEENT: PERRL/EOMI, Pharynx Normal Neck: Normal Inspection, Supple Respiratory: Lungs Clear, Normal Breath Sounds, No Respiratory Distress, Other (intubated and mechanically ventilated) Cardiovascular: Regular Rate, Rhythm, No Edema, No Murmur Gastrointestinal: Normal Bowel Sounds, Soft Extremity: Normal Inspection, No Pedal Edema Neurologic/Psychiatric: Other (sedated) Skin: Normal Color, Warm/Dry Results Results/Procedures Labs Laboratory Tests 08/10/20 17:38 08/11/20 02:00 Patient resulted labs reviewed. Imaging: Reviewed Imaging Report Assessment/Plan Admission Diagnosis Septic shock Admission Status: Inpatient Order (span 2 midnights) Reason for Inpatient Admission: Septic shock due to PNA Acute respiratory failure due to COVID-19 Assessment and Plan Septic shock due to pneumonia Acute respiratory failure due to COVID-19 Lactic acidosis Acute kidney injury superimposed on chronic kidney disease Chest xray with diffuse bilateral opacities and superimposed left lower lobe consolidation Received fluid bolus in ER, not currently on IV fluids Pressors off at this time, continue as needed for MAP >65 Started on Rocephin and Azithromycin Transition to Vancomycin and Zosyn Creatinine improving Decadron and Remdesivir for COVID Prediabetes Steroid-induced hyperglycemia SSI Check A1C HTN Hold home meds HLD PAD GERD DVT Prophylaxis: Lovenox Diagnosis/Problems Diagnosis/Problems (1) Septic shock Status: Acute (2) Pneumonia Status: Acute (3) Acute respiratory failure due to COVID-19 Status: Acute (4) Endotracheally intubated Status: Acute (5) HTN (hypertension) Status: Chronic (6) HLD (hyperlipidemia) Status: Chronic (7) Prediabetes Status: Chronic (8) Steroid-induced hyperglycemia Status: Acute (9) PAD (peripheral artery disease) Status: Chronic (10) GERD (gastroesophageal reflux disease) Status: Chronic (11) Obesity Status: Chronic Qualifiers: Body mass index: BMI 33.0-33.9 Clinical Quality Measures DVT/VTE Risk/Contraindication: Risk Factor Score Per Nursin RFS Level Per Nursing on Admit: 4+=Very High CLAUDIA FLYNN MD Aug 11, 2020 13:44
[2020-08-11] MEDS ORDERED: MIDAZOLAM 5 MG/5 ML (VERSED) VIAL IJ ONE (13:47)
[2020-08-11] MEDS ORDERED: ROCURONIUM 10 MG/ML 5 ML SYRINGE IV ONE (13:47)
[2020-08-11] MEDS ORDERED: fentaNYL INJECTION 100 MCG/2 ML AMP IV ONE (13:47)
[2020-08-11] MEDS ORDERED: ETOMIDATE IV SOLN 20 MG/10 ML VIAL IV ONE (13:47)
[2020-08-11 14:18] VITALS: BP 95/54
[2020-08-11] MEDS: PIPERACILLIN/TAZOBACTAM (BULK) 4.5 GM in NS (IVPB) 100 ML IV SCH ×2 (14:52→22:01)
--- NOTE | 2020-08-11 15:02 | NUR ---
During care rounds, it was noted that pt is currently intubated/sedated. Would recommend initiation of TF of Pulmocare 1.5 at 15ml/hr with 25ml free water flushes q4h. Will continue to follow and reassess as pt needs, intake, and status change. Leann Mccall, MS RD LD [phone] (cell)
[2020-08-11 19:14] VITALS: BP 90/65
--- NOTE | 2020-08-11 20:07 | NUR ---
TALKED TO PTS , UPDATE GIVEN
[2020-08-11 23:04] VITALS: BP 126/61
[2020-08-12] VITALS (8 sets, daily range): BP systolic 90–141; BP diastolic 53–91
[2020-08-12] MEDS: inSUlin ASPART (NovoLOG) 1 UNIT/0.01 ML (CHARGE PER UNIT) SC SCH ×4 (00:05→18:13)
[2020-08-12] MEDS: RT-ALBUTEROL INHALER HFA (VENTOLIN HFA) 18 GM IH SCH ×6 (01:48→21:50)
[2020-08-12] MEDS: fentaNYL DRIP PRE-MIX 250 ML IV SCH ×3 (02:54→20:57)
[2020-08-12 03:14] LABS: ABG BASE EXCESS -2.2 MMOL/L (-2.5-2.5); ABG OXYGEN SATURATION 95 % (94-100); ABG PCO2 45 MMHG (35-45); ABG PO2 98 MMHG (79-93); ABG TCO2 24.3 MMOL/L (21.0-31.0)
[2020-08-12 03:16] LABS: BASOPHILS % (AUTO) 0 % (0-10); EOSINOPHILS % (AUTO) 0 % (0-10); HEMATOCRIT 36 % (40-54); HEMOGLOBIN 11.6 g/dL (13.3-17.7); LYMPHOCYTES # (AUTO) 0.7 10^3/uL (1.0-4.0); LYMPHOCYTES % (AUTO) 5 % (12-44); MEAN CORPUSCULAR HEMOGLOBIN 31 pg (25-34); MEAN CORPUSCULAR HGB CONC 32 g/dL (32-36); MEAN CORPUSCULAR VOLUME 98 fL (80-99); MEAN PLATELET VOLUME 11.3 fL (9.0-12.2); MONOCYTES # (AUTO) 0.4 10^3/uL (0.0-1.0); MONOCYTES % (AUTO) 3 % (0-12); NEUTROPHILS # (AUTO) 11.6 10^3/uL (1.8-7.8); NEUTROPHILS % (AUTO) 89 % (42-75); PLATELET COUNT 214 10^3/uL (130-400); WHITE BLOOD COUNT 13.1 10^3/uL (4.3-11.0)
[2020-08-12 03:17] LABS: ALLENS TEST ARTLINE; INSPIRED O2 50; PATIENT TEMP 36.9; VENTILATOR YES
[2020-08-12 03:18] LABS: ABG PH 7.33 (7.37-7.43)
[2020-08-12 03:34] LABS: ALBUMIN 2.9 GM/DL (3.2-4.5)
[2020-08-12 03:35] LABS: POTASSIUM 4.2 MMOL/L (3.6-5.0)
[2020-08-12 03:36] LABS: CALCIUM 7.7 MG/DL (8.5-10.1)
[2020-08-12 03:37] LABS: TOTAL PROTEIN 6.3 GM/DL (6.4-8.2)
[2020-08-12 03:39] LABS: BILIRUBIN,TOTAL 0.6 MG/DL (0.1-1.0)
[2020-08-12 03:40] LABS: PHOSPHORUS 3.8 MG/DL (2.3-4.7)
[2020-08-12 03:41] LABS: CREATININE SERUM 1.68 MG/DL (0.60-1.30)
[2020-08-12 03:43] LABS: MAGNESIUM 3.3 MG/DL (1.6-2.4)
[2020-08-12] MEDS: NOREPINEPHRINE 4 MG/250 ML 250 ML IV SCH ×4 (03:55→21:44)
[2020-08-12] MEDS: MAGNESIUM 1 GM/100 ML IVPB 100 ML IV SCH (03:56)
[2020-08-12] MEDS: POTASSIUM CL 10MEQ/50ML IVPB 50 ML IV SCH (03:56)
[2020-08-12] MEDS: PIPERACILLIN/TAZOBACTAM (BULK) 4.5 GM in NS (IVPB) 100 ML IV SCH ×3 (06:04→22:47)
[2020-08-12] MEDS: REMDESIVIR INJ 100 MG in NS (IVPB) 230 ML IV SCH (08:07)
[2020-08-12] MEDS: PANTOPRAZOLE 40 MG (PROTONIX) VIAL IV SCH (08:10)
[2020-08-12] MEDS: ENOXAPARIN 40 MG/0.4 ML (LOVENOX) SYR SC SCH (08:11)
--- NOTE | 2020-08-12 11:26 | Diagnostic Imaging Report ---
INDICATION: Septic shock. EXAMINATION: Portable chest at 11:02 AM. FINDINGS: There is an ET tube projecting over the trachea. An NG tube projects over the stomach. A right jugular central line tip projects over the SVC. There is cardiomegaly. There are faint diffuse alveolar infiltrates in both lungs. IMPRESSION: Shallow inspiration compared to the previous day. There appear to be mild diffuse pulmonary infiltrates that are more apparent than on the previous day. Dictated by: Dictated on workstation # [id number]
[2020-08-12] MEDS: VANCOMYCIN INJECTION 1,750 MG in NS IV 500 ML 500 ML IV SCH (11:47)
--- NOTE | 2020-08-12 14:30 | NUR ---
During care rounds, it was noted that pt is receiving Pulmocare 1.5 at rate of 15ml/hr with 25ml water flushes q4h. Would recommend maintaining at current rate at this time. Will continue to follow and reassess as pt needs, intake, and status change. Leann Mccall, MS RD LD [phone] (cell)
[2020-08-12] MEDS ORDERED: ATEN25TA PO (15:05)
[2020-08-12] MEDS ORDERED: CLOP75TA28 PO (15:05)
[2020-08-12] MEDS ORDERED: FENO48TA10 PO (15:05)
[2020-08-12] MEDS ORDERED: METF-865 PO (15:05)
[2020-08-12] MEDS ORDERED: ATOR40TA70 PO (15:05)
[2020-08-12] MEDS ORDERED: ASPI-1238 PO (15:05)
[2020-08-12] MEDS ORDERED: LISI1TAB29 PO (15:05)
[2020-08-12] MEDS ORDERED: VITA1CAP PO (15:05)
--- NOTE | 2020-08-12 15:07 | NUR ---
UNABLE TO SPEAK WITH THE PT- I REACHED OUT TO HIS SELINA MULTIPLE TIMES YESTERDAY AND TODAY AND HAD TO LEAVE MESSAGES. I CALLED [facility] AND GOT A MEDICATION LIST THAT I WILL ATTACH TO HIS CHART. I USED THE MED LIST AND WENT THRU THE EXT MED HISTORY TO COMPLETE THE MED REC TO THE BEST OF MY ABILITY WHEN I CAN SPEAK WITH THE PT, I WILL MAKE ANY CHANGES TO THE MED REC/NOTES IF NEEDED
--- NOTE | 2020-08-12 15:46 | Progress Note - Hospitalist ---
Subjective HPI/CC On Admission Date Seen by Provider: Aug 12, 2020 Time Seen by Provider: 10:30 Cal Ray Jr is a 60-year-old male with past medical history of hypertension, hyperlipidemia, peripheral arterial disease, GERD, prediabetes, who presented with fever and shortness of breath. At the time of my examination he is intuba medina and sedated. Subjective/Events-last exam He is intubated and sedated. Focused Exam Lactate Level 08/10/20 20:45: Lactic Acid Level 3.00*H 08/10/20 23:18: Lactic Acid Level 2.39*H 08/11/20 02:00: Lactic Acid Level 1.97 Time of Focused Exam: 19:19 Objective Exam Vital Signs Vital Signs Date Time Temp Pulse Resp B/P (MAP) Pulse Ox O2 Delivery O2 Flow Rate FiO2 08/12/20 14:42 60 25 94 70 08/12/20 11:57 95/66 08/12/20 09:19 Mechanical Ventilator 08/12/20 05:00 37 50.00 Capillary Refill : Less Than 3 Seconds General Appearance: No Apparent Distress, Other (intubated and sedated) Respiratory: Lungs Clear, Normal Breath Sounds, No Respiratory Distress, Other (intubated and mechanically ventilated) Cardiovascular: Regular Rate, Rhythm, No Edema, No Murmur Gastrointestinal: Normal Bowel Sounds, Soft Extremity: Normal Inspection, No Pedal Edema Neurologic/Psychiatric: Alert, Oriented x3, No Motor/Sensory Deficits, Normal Mood/Affect Skin: Normal Color, Warm/Dry Results/Procedures Lab Laboratory Tests 08/12/20 02:50 Patient resulted labs reviewed. Imaging: Reviewed Imaging Report Assessment/Plan Assessment and Plan Assess & Plan/Chief Complaint Septic shock due to pneumonia Gram positive cocci bacteremia Acute respiratory failure due to COVID-19 Acute kidney injury superimposed on chronic kidney disease Requiring a bit of Levophed Continue Vancomycin and Zosyn Creatinine improving Decadron and Remdesivir for COVID Convalescent plasma ordered Vent settings and weaning per eICU, appreciate assistance T2DM Steroid-induced hyperglycemia A1C 6.8% SSI HTN Hold home meds HLD PAD GERD DVT Prophylaxis: Lovenox Lactic acidosis, resolved Diagnosis/Problems Diagnosis/Problems (1) Septic shock Status: Acute (2) Pneumonia Status: Acute (3) Acute respiratory failure due to COVID-19 Status: Acute (4) Endotracheally intubated Status: Acute (5) HTN (hypertension) Status: Chronic (6) HLD (hyperlipidemia) Status: Chronic (7) Prediabetes Status: Chronic (8) Steroid-induced hyperglycemia Status: Acute (9) PAD (peripheral artery disease) Status: Chronic (10) GERD (gastroesophageal reflux disease) Status: Chronic (11) Obesity Status: Chronic Qualifiers: Body mass index: BMI 33.0-33.9 Clinical Quality Measures DVT/VTE Risk/Contraindication: Risk Factor Score Per Nursin RFS Level Per Nursing on Admit: 4+=Very High CLAUDIA FLYNN MD Aug 12, 2020 15:46
[2020-08-12] MEDS ORDERED: NS IV 500 ML 500 ML ONE (22:17)
[2020-08-13] VITALS (7 sets, daily range): BP systolic 89–116; BP diastolic 60–75
[2020-08-13] MEDS: inSUlin ASPART (NovoLOG) 1 UNIT/0.01 ML (CHARGE PER UNIT) SC SCH ×4 (00:44→18:02)
[2020-08-13] MEDS: RT-ALBUTEROL INHALER HFA (VENTOLIN HFA) 18 GM IH SCH ×6 (02:50→21:21)
[2020-08-13] MEDS: fentaNYL DRIP PRE-MIX 250 ML IV SCH ×4 (03:08→22:36)
[2020-08-13 03:23] LABS: BASOPHILS % (AUTO) 0 % (0-10); EOSINOPHILS % (AUTO) 0 % (0-10); HEMATOCRIT 34 % (40-54); HEMOGLOBIN 10.5 g/dL (13.3-17.7); LYMPHOCYTES # (AUTO) 0.6 10^3/uL (1.0-4.0); LYMPHOCYTES % (AUTO) 5 % (12-44); MEAN CORPUSCULAR HEMOGLOBIN 31 pg (25-34); MEAN CORPUSCULAR HGB CONC 31 g/dL (32-36); MEAN CORPUSCULAR VOLUME 101 fL (80-99); MEAN PLATELET VOLUME 11.3 fL (9.0-12.2); MONOCYTES # (AUTO) 0.4 10^3/uL (0.0-1.0); MONOCYTES % (AUTO) 3 % (0-12); NEUTROPHILS # (AUTO) 9.8 10^3/uL (1.8-7.8); NEUTROPHILS % (AUTO) 88 % (42-75); PLATELET COUNT 231 10^3/uL (130-400); WHITE BLOOD COUNT 11.1 10^3/uL (4.3-11.0)
[2020-08-13 03:24] LABS: ABG BASE EXCESS -1.5 MMOL/L (-2.5-2.5); ABG OXYGEN SATURATION 92 % (94-100); ABG PCO2 45 MMHG (35-45); ABG PO2 77 MMHG (79-93)
[2020-08-13 03:27] LABS: ALLENS TEST ARTLINE; INSPIRED O2 35; PATIENT TEMP 36.9; VENTILATOR YES
[2020-08-13 03:28] LABS: ABG PH 7.34 (7.37-7.43)
[2020-08-13] MEDS: NOREPINEPHRINE 4 MG/250 ML 250 ML IV SCH ×3 (03:36→21:41)
[2020-08-13 03:41] LABS: ALBUMIN 2.9 GM/DL (3.2-4.5); POTASSIUM 4.7 MMOL/L (3.6-5.0)
[2020-08-13 03:43] LABS: CALCIUM 7.5 MG/DL (8.5-10.1)
[2020-08-13 03:44] LABS: TOTAL PROTEIN 6.1 GM/DL (6.4-8.2)
[2020-08-13 03:46] LABS: BILIRUBIN,TOTAL 0.5 MG/DL (0.1-1.0)
[2020-08-13 03:47] LABS: PHOSPHORUS 3.4 MG/DL (2.3-4.7)
[2020-08-13 03:48] LABS: CREATININE SERUM 1.61 MG/DL (0.60-1.30)
[2020-08-13 03:50] LABS: MAGNESIUM 3.6 MG/DL (1.6-2.4)
[2020-08-13] MEDS: MAGNESIUM 1 GM/100 ML IVPB 100 ML IV SCH (05:10)
[2020-08-13] MEDS: POTASSIUM CL 10MEQ/50ML IVPB 50 ML IV SCH (05:10)
[2020-08-13] MEDS: PIPERACILLIN/TAZOBACTAM (BULK) 4.5 GM in NS (IVPB) 100 ML IV SCH ×3 (06:22→22:36)
[2020-08-13] MEDS: REMDESIVIR INJ 100 MG in NS (IVPB) 230 ML IV SCH (07:57)
[2020-08-13] MEDS: PANTOPRAZOLE 40 MG (PROTONIX) VIAL IV SCH (07:57)
[2020-08-13] MEDS: ENOXAPARIN 40 MG/0.4 ML (LOVENOX) SYR SC SCH (07:57)
--- NOTE | 2020-08-13 08:17 | Diagnostic Imaging Report ---
Indication: COVID-19. Respiratory failure. Hypoxia Upright chest shows cardiomegaly with normal vascularity. There are minimal left lower lobe infiltrates. The right lung appears clear. There is no effusion or pneumothorax. The ET tube is in good position. An OG-tube is in the stomach. IMPRESSION: The right lung appears to be better aerated compared to 08/12/2020 study. There remains some infiltrate in the left lower lobe. Report was faxed to [facility]/RN Infection Control by aixa at 8:17am. Dictated by: Dictated on workstation # [id number]
[2020-08-13] MEDS ORDERED: TROUGH ORDER-PHARMACY XX NR (10:00)
[2020-08-13] MEDS: VANCOMYCIN INJECTION 1,750 MG in NS IV 500 ML 500 ML IV SCH (10:48)
--- NOTE | 2020-08-13 13:31 | NUR ---
Note pt is currently receiving TF of Pulmocare at rate of 15ml/hr with 25ml free water flushes q4h. Pt has been receiving TF for 2day, per Zak BRYANT. Discussed with Zak that as long as pt is tolerating TF well, we can start conservative increases of 10ml q12h on 08/14, toward goal rate of 45ml/hr. Will continue to follow and reassess as pt needs, intake and status change. Leann Mccall, MS RD LD [phone] cell
--- NOTE | 2020-08-13 14:41 | Progress Note - Hospitalist ---
Subjective HPI/CC On Admission Date Seen by Provider: Aug 13, 2020 Time Seen by Provider: 09:55 Cal Ray Jr is a 60-year-old male with past medical history of hypertension, hyperlipidemia, peripheral arterial disease, GERD, prediabetes, who presented with fever and shortness of breath. At the time of my examination he is intuba medina and sedated. Subjective/Events-last exam He he is intubated and sedated. Focused Exam Lactate Level 08/10/20 20:45: Lactic Acid Level 3.00*H 08/10/20 23:18: Lactic Acid Level 2.39*H 08/11/20 02:00: Lactic Acid Level 1.97 Time of Focused Exam: 19:19 Objective Exam Vital Signs Vital Signs Date Time Temp Pulse Resp B/P (MAP) Pulse Ox O2 Delivery O2 Flow Rate FiO2 08/13/20 14:23 58 105/83 08/13/20 11:08 35.8 08/13/20 10:55 25 97 30 08/13/20 09:00 Mechanical Ventilator 08/13/20 06:00 35.00 Capillary Refill : Less Than 3 Seconds General Appearance: No Apparent Distress, WD/WN Respiratory: No Respiratory Distress, Decreased Breath Sounds, Other (intubated and mechanically ventilated) Cardiovascular: Regular Rate, Rhythm, No Murmur Gastrointestinal: Normal Bowel Sounds, Soft Extremity: Normal Inspection, Pedal Edema Neurologic/Psychiatric: Other (sedated) Skin: Normal Color, Warm/Dry Results/Procedures Lab Laboratory Tests 08/13/20 03:10 Patient resulted labs reviewed. Imaging: Reviewed Imaging Report Assessment/Plan Assessment and Plan Assess & Plan/Chief Complaint Septic shock due to pneumonia Coag negative staph bacteremia Acute respiratory failure due to COVID-19 Acute kidney injury superimposed on chronic kidney disease Continue Vancomycin and Zosyn Creatinine improving Decadron and Remdesivir for COVID s/p 1 unit convalescent plasma Vent settings and weaning per eICU, appreciate assistance T2DM Steroid-induced hyperglycemia A1C 6.8% Levemir SSI HTN Hold home meds HLD PAD GERD DVT Prophylaxis: Lovenox Lactic acidosis, resolved Diagnosis/Problems Diagnosis/Problems (1) Septic shock Status: Acute (2) Pneumonia Status: Acute (3) Acute respiratory failure due to COVID-19 Status: Acute (4) Endotracheally intubated Status: Acute (5) HTN (hypertension) Status: Chronic (6) HLD (hyperlipidemia) Status: Chronic (7) Prediabetes Status: Chronic (8) Steroid-induced hyperglycemia Status: Acute (9) PAD (peripheral artery disease) Status: Chronic (10) GERD (gastroesophageal reflux disease) Status: Chronic (11) Obesity Status: Chronic Qualifiers: Body mass index: BMI 33.0-33.9 Clinical Quality Measures DVT/VTE Risk/Contraindication: Risk Factor Score Per Nursin RFS Level Per Nursing on Admit: 4+=Very High CLAUDIA FLYNN MD Aug 13, 2020 14:41
[2020-08-14] MEDS: inSUlin ASPART (NovoLOG) 1 UNIT/0.01 ML (CHARGE PER UNIT) SC SCH ×5 (00:14→23:23)
[2020-08-14] MEDS: RT-ALBUTEROL INHALER HFA (VENTOLIN HFA) 18 GM IH SCH ×6 (02:10→22:30)
[2020-08-14 02:11] VITALS: BP 90/65
[2020-08-14 03:20] LABS: BASOPHILS % (AUTO) 0 % (0-10); EOSINOPHILS % (AUTO) 0 % (0-10); HEMATOCRIT 34 % (40-54); HEMOGLOBIN 10.2 g/dL (13.3-17.7); LYMPHOCYTES # (AUTO) 0.5 10^3/uL (1.0-4.0); LYMPHOCYTES % (AUTO) 5 % (12-44); MEAN CORPUSCULAR HEMOGLOBIN 31 pg (25-34); MEAN CORPUSCULAR HGB CONC 30 g/dL (32-36); MEAN CORPUSCULAR VOLUME 103 fL (80-99); MEAN PLATELET VOLUME 11.2 fL (9.0-12.2); MONOCYTES # (AUTO) 0.3 10^3/uL (0.0-1.0); MONOCYTES % (AUTO) 4 % (0-12); NEUTROPHILS # (AUTO) 7.8 10^3/uL (1.8-7.8); NEUTROPHILS % (AUTO) 85 % (42-75); PLATELET COUNT 238 10^3/uL (130-400); WHITE BLOOD COUNT 9.2 10^3/uL (4.3-11.0)
[2020-08-14 03:35] LABS: ALBUMIN 2.7 GM/DL (3.2-4.5); POTASSIUM 4.8 MMOL/L (3.6-5.0)
[2020-08-14 03:36] LABS: CALCIUM 7.3 MG/DL (8.5-10.1)
[2020-08-14 03:38] LABS: TOTAL PROTEIN 5.8 GM/DL (6.4-8.2)
[2020-08-14 03:39] LABS: BILIRUBIN,TOTAL 0.5 MG/DL (0.1-1.0)
[2020-08-14 03:41] LABS: CREATININE SERUM 1.42 MG/DL (0.60-1.30); PHOSPHORUS 3.3 MG/DL (2.3-4.7)
[2020-08-14 03:44] LABS: MAGNESIUM 3.5 MG/DL (1.6-2.4)
[2020-08-14 03:52] LABS: ABG BASE EXCESS 0.1 MMOL/L (-2.5-2.5); ABG OXYGEN SATURATION 83 % (94-100); ABG PCO2 46 MMHG (35-45); ABG PH 7.35 (7.37-7.43); ABG PO2 55 MMHG (79-93); ABG TCO2 26.5 MMOL/L (21.0-31.0)
[2020-08-14] MEDS: NOREPINEPHRINE 4 MG/250 ML 250 ML IV SCH ×4 (03:52→22:23)
[2020-08-14] MEDS: fentaNYL DRIP PRE-MIX 250 ML IV SCH ×5 (03:52→23:24)
[2020-08-14 03:55] LABS: ALLENS TEST POS; INSPIRED O2 30%; PATIENT TEMP 36.8; VENTILATOR YES
[2020-08-14 05:02] VITALS: BP 90/65
[2020-08-14] MEDS: POTASSIUM CL 10MEQ/50ML IVPB 50 ML IV SCH (05:11)
[2020-08-14] MEDS: MAGNESIUM 1 GM/100 ML IVPB 100 ML IV SCH (05:12)
[2020-08-14] MEDS: PIPERACILLIN/TAZOBACTAM (BULK) 4.5 GM in NS (IVPB) 100 ML IV SCH (06:25)
[2020-08-14 06:39] VITALS: BP 90/65
[2020-08-14] MEDS: PANTOPRAZOLE 40 MG (PROTONIX) VIAL IV SCH (08:01)
[2020-08-14] MEDS: ENOXAPARIN 40 MG/0.4 ML (LOVENOX) SYR SC SCH (08:01)
[2020-08-14] MEDS: REMDESIVIR INJ 100 MG in NS (IVPB) 230 ML IV SCH (08:01)
--- NOTE | 2020-08-14 08:41 | Diagnostic Imaging Report ---
Indication: Dyspnea, follow-up COVID pneumonia. Comparison: 08/13/2020. Discussion: Single portable upright view of the chest was obtained. Cardiomegaly is again noted. Right IJ central venous catheter, enteric tube, and endotracheal tube are stable. Severe pulmonary infiltrates are markedly increase from the prior exam, likely worsening pneumonia. No pleural fluid or pneumothorax. Impression: 1. Significantly increased severe pulmonary infiltrates. Report was faxed to [facility]/RN Infection Control by aixa at 8:41AM. Dictated by: Dictated on workstation # [id number]
[2020-08-14] MEDS: ARTIFICIAL TEARS OINT (LACRI-LUBE) 3.5 GM TUBE OU SCH ×2 (08:57→19:59)
--- NOTE | 2020-08-14 09:17 | NUR ---
THIS RN CLARIFIED WITH DR. FLYNN LEVEMIR ORDER. THIS RN HAD ALREADY ADMINISTERED 10UNITS OF LEVEMIR PRIOR TO DR. FLYNN CHANGING DOSE FROM 10UNITS TO 20UNITS. THIS RN ASKED IF DR. FLYNN WANTED ANOTHER 10UNITS ADMINISTERED, IN WHICH HE REQUESTED AN ADDITIONAL 10UNITS ADMINISTERED TO EQUAL 20UNITS SCHEDULED.
[2020-08-14] MEDS: VANCOMYCIN INJECTION 1,750 MG in NS IV 500 ML 500 ML IV SCH (10:11)
--- NOTE | 2020-08-14 14:00 | Progress Note - Hospitalist ---
Subjective HPI/CC On Admission Date Seen by Provider: Aug 14, 2020 Time Seen by Provider: 09:45 Cal Ray Jr is a 60-year-old male with past medical history of hypertension, hyperlipidemia, peripheral arterial disease, GERD, prediabetes, who presented with fever and shortness of breath. At the time of my examination he is intuba medina and sedated. Subjective/Events-last exam He remains intubated and sedated. Focused Exam Time of Focused Exam: 19:19 Objective Exam Vital Signs Vital Signs Date Time Temp Pulse Resp B/P (MAP) Pulse Ox O2 Delivery O2 Flow Rate FiO2 08/14/20 12:34 75 08/14/20 12:00 37.2 24 96 Mechanical Ventilator 75.00 08/14/20 08:12 35 Capillary Refill : Less Than 3 Seconds General Appearance: No Apparent Distress, Obese, Other (intubated and sedated) Respiratory: Lungs Clear, Normal Breath Sounds, No Respiratory Distress, Other (intubated and mechanically ventilated) Cardiovascular: Regular Rate, Rhythm, No Murmur Gastrointestinal: Normal Bowel Sounds, Non Tender, Soft Extremity: Normal Inspection, Pedal Edema Neurologic/Psychiatric: Other (sedated) Skin: Normal Color, Warm/Dry Results/Procedures Lab Laboratory Tests 08/14/20 02:50 Patient resulted labs reviewed. Imaging: Reviewed Imaging Report Assessment/Plan Assessment and Plan Assess & Plan/Chief Complaint Septic shock due to pneumonia MRSE bacteremia Acute respiratory failure due to COVID-19 Acute kidney injury superimposed on chronic kidney disease Blood cultures positive for Staph hominus and Staph epidermidis, methicillin resistant Repeat blood cultures Obtain TTE Continue Vancomycin Stop Zosyn Creatinine improving Decadron and Remdesivir for COVID s/p 1 unit convalescent plasma Vent settings and weaning per eICU, appreciate assistance T2DM Steroid-induced hyperglycemia A1C 6.8% Levemir SSI HTN Hold home meds HLD PAD GERD DVT Prophylaxis: Lovenox Lactic acidosis, resolved Diagnosis/Problems Diagnosis/Problems (1) Septic shock Status: Acute (2) Pneumonia Status: Acute (3) Acute respiratory failure due to COVID-19 Status: Acute (4) Endotracheally intubated Status: Acute (5) HTN (hypertension) Status: Chronic (6) HLD (hyperlipidemia) Status: Chronic (7) Prediabetes Status: Chronic (8) Steroid-induced hyperglycemia Status: Acute (9) PAD (peripheral artery disease) Status: Chronic (10) GERD (gastroesophageal reflux disease) Status: Chronic (11) Obesity Status: Chronic Qualifiers: Body mass index: BMI 33.0-33.9 (12) Staphylococcus epidermidis bacteremia Status: Acute (13) Methicillin resistant Staphylococcus epidermidis infection Status: Acute Clinical Quality Measures DVT/VTE Risk/Contraindication: Risk Factor Score Per Nursin RFS Level Per Nursing on Admit: 4+=Very High CLAUDIA FLYNN MD Aug 14, 2020 14:00
[2020-08-14 14:31] VITALS: BP 110/74
[2020-08-14 18:57] VITALS: BP 116/87
[2020-08-14 22:30] VITALS: BP 118/78
[2020-08-15 02:49] VITALS: BP 111/71
[2020-08-15] MEDS: RT-ALBUTEROL INHALER HFA (VENTOLIN HFA) 18 GM IH SCH ×6 (02:49→21:50)
[2020-08-15] MEDS: NOREPINEPHRINE 4 MG/250 ML 250 ML IV SCH ×4 (03:09→20:57)
[2020-08-15] MEDS: fentaNYL DRIP PRE-MIX 250 ML IV SCH ×5 (04:13→23:35)
[2020-08-15 04:18] LABS: ABG BASE EXCESS -0.7 MMOL/L (-2.5-2.5); ABG OXYGEN SATURATION 73 % (94-100); ABG PCO2 48 MMHG (35-45); ABG PO2 46 MMHG (79-93); ABG TCO2 25.9 MMOL/L (21.0-31.0); BASOPHILS % (AUTO) 0 % (0-10); EOSINOPHILS % (AUTO) 0 % (0-10); HEMATOCRIT 35 % (40-54); HEMOGLOBIN 10.4 g/dL (13.3-17.7); LYMPHOCYTES # (AUTO) 0.6 10^3/uL (1.0-4.0); LYMPHOCYTES % (AUTO) 8 % (12-44); MEAN CORPUSCULAR HEMOGLOBIN 32 pg (25-34); MEAN CORPUSCULAR HGB CONC 30 g/dL (32-36); MEAN CORPUSCULAR VOLUME 106 fL (80-99); MEAN PLATELET VOLUME 11.1 fL (9.0-12.2); MONOCYTES # (AUTO) 0.3 10^3/uL (0.0-1.0); MONOCYTES % (AUTO) 3 % (0-12); NEUTROPHILS # (AUTO) 6.6 10^3/uL (1.8-7.8); NEUTROPHILS % (AUTO) 81 % (42-75); PLATELET COUNT 245 10^3/uL (130-400); WHITE BLOOD COUNT 8.2 10^3/uL (4.3-11.0)
[2020-08-15 04:19] LABS: ALLENS TEST POSITIVE; INSPIRED O2 50; PATIENT TEMP 37.1; VENTILATOR YES
[2020-08-15 04:21] LABS: ABG PH 7.33 (7.37-7.43)
[2020-08-15 04:28] LABS: ALBUMIN 2.7 GM/DL (3.2-4.5)
[2020-08-15 04:29] LABS: CHLORIDE 114 MMOL/L (98-107); POTASSIUM 4.9 MMOL/L (3.6-5.0); SODIUM 146 MMOL/L (135-145)
[2020-08-15 04:30] LABS: CALCIUM 7.5 MG/DL (8.5-10.1)
[2020-08-15 04:31] LABS: GLUCOSE 130 MG/DL (70-105); TOTAL PROTEIN 5.9 GM/DL (6.4-8.2)
[2020-08-15 04:32] LABS: CARBON DIOXIDE 22 MMOL/L (21-32)
[2020-08-15 04:33] LABS: BILIRUBIN,TOTAL 0.7 MG/DL (0.1-1.0)
[2020-08-15 04:34] LABS: ALKALINE PHOSPHATASE 44 U/L (40-136); PHOSPHORUS 3.1 MG/DL (2.3-4.7)
[2020-08-15 04:35] LABS: CREATININE SERUM 1.17 MG/DL (0.60-1.30); GFR ESTIMATED > 60
[2020-08-15 04:36] LABS: BUN/CREATININE RATIO 35
[2020-08-15 04:38] LABS: ALANINE AMINOTRANSFERASE 35 U/L (0-55); MAGNESIUM 3.2 MG/DL (1.6-2.4)
[2020-08-15] MEDS: inSUlin ASPART (NovoLOG) 1 UNIT/0.01 ML (CHARGE PER UNIT) SC SCH ×4 (05:48→23:52)
[2020-08-15] MEDS: POTASSIUM CL 10MEQ/50ML IVPB 50 ML IV SCH (05:48)
[2020-08-15] MEDS: MAGNESIUM 1 GM/100 ML IVPB 100 ML IV SCH (05:48)
[2020-08-15 07:04] VITALS: BP 133/89
--- NOTE | 2020-08-15 07:57 | Diagnostic Imaging Report ---
INDICATION: Acute respiratory failure Portable AP view of the chest is obtained with comparison made study of one day earlier. There is cardiomegaly and mild pulmonary venous congestion. Bilateral airspace disease is stable or slightly improved when compared to previous study. There is basilar atelectasis and probable small amount of pleural fluid. Endotracheal tube remains in place with tip at the thoracic inlet. There does appear to be right jugular central venous catheter. IMPRESSION: Bilateral airspace disease is similar to previous study or mildly improved. Otherwise, no significant change is detected. Dictated by: Dictated on workstation # [id number]
[2020-08-15] MEDS: REMDESIVIR INJ 100 MG in NS (IVPB) 230 ML IV SCH (08:08)
[2020-08-15] MEDS: ENOXAPARIN 40 MG/0.4 ML (LOVENOX) SYR SC SCH (08:09)
[2020-08-15] MEDS: PANTOPRAZOLE 40 MG (PROTONIX) VIAL IV SCH (08:09)
[2020-08-15] MEDS: ARTIFICIAL TEARS OINT (LACRI-LUBE) 3.5 GM TUBE OU SCH ×2 (08:09→21:14)
--- NOTE | 2020-08-15 10:45 | NUR ---
Note pt is currently receiving Pulmocare at 15ml/hr with 25ml free water flushes q4h. Would recommend conservative increases of 10ml q12h as tolerated, toward goal rate of 45ml/hr. Will continue to follow and reassess as pt needs, intake, and status change. Leann Mccall, MS RD LD [phone] cell
[2020-08-15 11:00] VITALS: BP 82/56
[2020-08-15] MEDS: VANCOMYCIN INJECTION 1,750 MG in NS IV 500 ML 500 ML IV SCH (12:12)
--- NOTE | 2020-08-15 12:27 | Progress Note - Hospitalist ---
Subjective HPI/CC On Admission Date Seen by Provider: Aug 15, 2020 Time Seen by Provider: 09:25 Cal Ray Jr is a 60-year-old male with past medical history of hypertension, hyperlipidemia, peripheral arterial disease, GERD, prediabetes, who presented with fever and shortness of breath. At the time of my examination he is intuba medina and sedated. Subjective/Events-last exam he remains intubated and sedated. Focused Exam Time of Focused Exam: 19:19 Objective Exam Vital Signs Vital Signs Date Time Temp Pulse Resp B/P (MAP) Pulse Ox O2 Delivery O2 Flow Rate FiO2 08/15/20 11:00 81 25 92 70 08/15/20 10:30 133/89 08/15/20 10:00 Mechanical Ventilator 70.00 08/15/20 08:16 37.3 Capillary Refill : Less Than 3 Seconds General Appearance: No Apparent Distress, Obese HEENT: PERRL/EOMI, Pharynx Normal Respiratory: Lungs Clear, Normal Breath Sounds, No Respiratory Distress Cardiovascular: Regular Rate, Rhythm, No Edema, No Murmur Gastrointestinal: Normal Bowel Sounds, Non Tender, Soft Extremity: Normal Inspection, Non Tender, No Pedal Edema Neurologic/Psychiatric: Alert, Oriented x3, No Motor/Sensory Deficits, Normal Mood/Affect Skin: Normal Color, Warm/Dry Results/Procedures Lab Laboratory Tests 08/15/20 04:00 Patient resulted labs reviewed. Imaging: Reviewed Imaging Report Assessment/Plan Assessment and Plan Assess & Plan/Chief Complaint Septic shock due to pneumonia MRSE bacteremia Acute respiratory failure due to COVID-19 Acute kidney injury superimposed on chronic kidney disease Blood cultures positive for Staph hominus and Staph epidermidis, methicillin resistant Repeat blood cultures pending TTE ordered Continue Vancomycin Creatinine improving Decadron s/p Remdesivir s/p 1 unit convalescent plasma Vent settings and weaning per eICU, appreciate assistance T2DM Steroid-induced hyperglycemia A1C 6.8% Levemir SSI HTN Hold home meds HLD PAD GERD DVT Prophylaxis: Lovenox Lactic acidosis, resolved Diagnosis/Problems Diagnosis/Problems (1) Septic shock Status: Acute (2) Pneumonia Status: Acute (3) Acute respiratory failure due to COVID-19 Status: Acute (4) Endotracheally intubated Status: Acute (5) HTN (hypertension) Status: Chronic (6) HLD (hyperlipidemia) Status: Chronic (7) Prediabetes Status: Chronic (8) Steroid-induced hyperglycemia Status: Acute (9) PAD (peripheral artery disease) Status: Chronic (10) GERD (gastroesophageal reflux disease) Status: Chronic (11) Obesity Status: Chronic Qualifiers: Body mass index: BMI 33.0-33.9 (12) Staphylococcus epidermidis bacteremia Status: Acute (13) Methicillin resistant Staphylococcus epidermidis infection Status: Acute Clinical Quality Measures DVT/VTE Risk/Contraindication: Risk Factor Score Per Nursin RFS Level Per Nursing on Admit: 4+=Very High CLAUDIA FLYNN MD Aug 15, 2020 12:27
[2020-08-15 14:39] VITALS: BP 111/67
[2020-08-15 19:05] VITALS: BP 90/65
[2020-08-15 21:50] VITALS: BP 90/60
[2020-08-16 02:35] LABS: BASOPHILS % (AUTO) 0 % (0-10); EOSINOPHILS % (AUTO) 0 % (0-10); HEMATOCRIT 34 % (40-54); HEMOGLOBIN 9.7 g/dL (13.3-17.7); LYMPHOCYTES # (AUTO) 0.4 10^3/uL (1.0-4.0); LYMPHOCYTES % (AUTO) 6 % (12-44); MEAN CORPUSCULAR HEMOGLOBIN 31 pg (25-34); MEAN CORPUSCULAR HGB CONC 29 g/dL (32-36); MEAN CORPUSCULAR VOLUME 108 fL (80-99); MEAN PLATELET VOLUME 11.2 fL (9.0-12.2); MONOCYTES # (AUTO) 0.2 10^3/uL (0.0-1.0); MONOCYTES % (AUTO) 4 % (0-12); NEUTROPHILS # (AUTO) 4.9 10^3/uL (1.8-7.8); NEUTROPHILS % (AUTO) 81 % (42-75); PLATELET COUNT 222 10^3/uL (130-400); WHITE BLOOD COUNT 6.1 10^3/uL (4.3-11.0)
[2020-08-16 02:36] LABS: ABG BASE EXCESS -0.2 MMOL/L (-2.5-2.5); ABG OXYGEN SATURATION 94 % (94-100); ABG PCO2 52 MMHG (35-45); ABG PO2 86 MMHG (79-93); ABG TCO2 26.8 MMOL/L (21.0-31.0)
[2020-08-16 02:40] VITALS: BP 90/65
[2020-08-16] MEDS: RT-ALBUTEROL INHALER HFA (VENTOLIN HFA) 18 GM IH SCH ×6 (02:40→22:04)
[2020-08-16 02:46] LABS: ABG PH 7.31 (7.37-7.43)
[2020-08-16 02:47] LABS: ALLENS TEST POSITIVE; CHLORIDE 115 MMOL/L (98-107); INSPIRED O2 60%; PATIENT TEMP 37.4; POTASSIUM 5.3 MMOL/L (3.6-5.0); SODIUM 146 MMOL/L (135-145); VENTILATOR YES
[2020-08-16 02:48] LABS: CALCIUM 7.3 MG/DL (8.5-10.1)
[2020-08-16 02:49] LABS: GLUCOSE 171 MG/DL (70-105)
[2020-08-16 02:50] LABS: CARBON DIOXIDE 23 MMOL/L (21-32)
[2020-08-16 02:52] LABS: PHOSPHORUS 3.6 MG/DL (2.3-4.7)
[2020-08-16 02:53] LABS: CREATININE SERUM 1.07 MG/DL (0.60-1.30); GFR ESTIMATED > 60
[2020-08-16 02:54] LABS: BUN/CREATININE RATIO 38
[2020-08-16 02:55] LABS: MAGNESIUM 3.3 MG/DL (1.6-2.4)
[2020-08-16] MEDS: NOREPINEPHRINE 4 MG/250 ML 250 ML IV SCH ×5 (03:14→23:51)
[2020-08-16] MEDS: POTASSIUM CL 10MEQ/50ML IVPB 50 ML IV SCH (03:15)
[2020-08-16 04:07] LABS: SMEAR SCAN COMMENT YES
[2020-08-16] MEDS: MAGNESIUM 1 GM/100 ML IVPB 100 ML IV SCH (04:44)
[2020-08-16] MEDS: fentaNYL DRIP PRE-MIX 250 ML IV SCH ×3 (05:05→19:42)
[2020-08-16] MEDS: inSUlin ASPART (NovoLOG) 1 UNIT/0.01 ML (CHARGE PER UNIT) SC SCH ×4 (05:30→23:14)
[2020-08-16 07:12] VITALS: BP 116/63
[2020-08-16] MEDS: ARTIFICIAL TEARS OINT (LACRI-LUBE) 3.5 GM TUBE OU SCH ×2 (08:31→19:43)
[2020-08-16] MEDS: PANTOPRAZOLE 40 MG (PROTONIX) VIAL IV SCH (08:31)
[2020-08-16] MEDS: ENOXAPARIN 40 MG/0.4 ML (LOVENOX) SYR SC SCH (08:31)
--- NOTE | 2020-08-16 09:02 | Diagnostic Imaging Report ---
EXAMINATION: Chest 1 view HISTORY: Covid 19 COMPARISON: 08/15/2020 FINDINGS: Endotracheal tube tip terminates 5 cm above the jason. Gastric tube tip terminates below the field of view. Right internal jugular central venous catheter tip terminates in the superior vena cava. There are moderate bilateral interstitial and airspace opacities, right greater than left. Lung volumes are small. No pleural effusion is seen. No pneumothorax. IMPRESSION: 1. Moderate bilateral interstitial and airspace opacities, right greater than left consistent with Covid 19 as reported in the history. Dictated by: Dictated on workstation # [id number]
[2020-08-16 10:56] VITALS: BP 133/65
[2020-08-16] MEDS ORDERED: FUROSEMIDE 40 MG/4 ML INJ (LASIX) IVP ONE (11:30)
--- NOTE | 2020-08-16 14:30 | Progress Note - Hospitalist ---
Subjective HPI/CC On Admission Date Seen by Provider: Aug 16, 2020 Time Seen by Provider: 10:35 Cal Ray Jr is a 60-year-old male with past medical history of hypertension, hyperlipidemia, peripheral arterial disease, GERD, prediabetes, who presented with fever and shortness of breath. At the time of my examination he is intuba medina and sedated. Subjective/Events-last exam he remains intubated and sedated. Focused Exam Time of Focused Exam: 19:19 Objective Exam Vital Signs Vital Signs Date Time Temp Pulse Resp B/P (MAP) Pulse Ox O2 Delivery O2 Flow Rate FiO2 08/16/20 14:00 86 20 96 Mechanical Ventilator 90.00 08/16/20 10:56 90 08/16/20 08:10 37.5 Capillary Refill : Less Than 3 Seconds General Appearance: No Apparent Distress, Obese Respiratory: No Respiratory Distress, Other (coarse breath sounds bilaterally, intubated and mechanically ventilated) Cardiovascular: Regular Rate, Rhythm, No Murmur Gastrointestinal: Normal Bowel Sounds, Non Tender, Soft Extremity: Normal Inspection, Non Tender, Pedal Edema Neurologic/Psychiatric: Other (sedated) Skin: Normal Color, Warm/Dry Results/Procedures Lab Laboratory Tests 08/16/20 02:20 Patient resulted labs reviewed. Imaging: Reviewed Imaging Report Assessment/Plan Assessment and Plan Assess & Plan/Chief Complaint Septic shock due to pneumonia MRSE bacteremia Acute respiratory failure due to COVID-19 Acute kidney injury superimposed on chronic kidney disease Blood cultures positive for Staph hominus and Staph epidermidis, methicillin resistant Repeat blood cultures with no growth to date TTE showed no evidence of endocarditis Continue Vancomycin Creatinine improving Decadron s/p Remdesivir s/p 1 unit convalescent plasma Vent settings and weaning per eICU, appreciate assistance Lasix T2DM Steroid-induced hyperglycemia A1C 6.8% Levemir SSI HTN Hold home meds HLD PAD GERD DVT Prophylaxis: Lovenox Lactic acidosis, resolved Diagnosis/Problems Diagnosis/Problems (1) Septic shock Status: Acute (2) Pneumonia Status: Acute (3) Acute respiratory failure due to COVID-19 Status: Acute (4) Endotracheally intubated Status: Acute (5) HTN (hypertension) Status: Chronic (6) HLD (hyperlipidemia) Status: Chronic (7) Prediabetes Status: Chronic (8) Steroid-induced hyperglycemia Status: Acute (9) PAD (peripheral artery disease) Status: Chronic (10) GERD (gastroesophageal reflux disease) Status: Chronic (11) Obesity Status: Chronic Qualifiers: Body mass index: BMI 33.0-33.9 (12) Staphylococcus epidermidis bacteremia Status: Acute (13) Methicillin resistant Staphylococcus epidermidis infection Status: Acute Clinical Quality Measures DVT/VTE Risk/Contraindication: Risk Factor Score Per Nursin RFS Level Per Nursing on Admit: 4+=Very High CLAUDIA FLYNN MD Aug 16, 2020 14:30
[2020-08-16 19:17] VITALS: BP 119/65
[2020-08-16 22:05] VITALS: BP 118/63
[2020-08-17] MEDS: RT-ALBUTEROL INHALER HFA (VENTOLIN HFA) 18 GM IH SCH ×6 (02:19→22:54)
[2020-08-17] MEDS: fentaNYL DRIP PRE-MIX 250 ML IV SCH ×3 (02:25→19:44)
[2020-08-17 02:27] VITALS: BP 121/67
[2020-08-17 02:54] LABS: ABG BASE EXCESS 1.2 MMOL/L (-2.5-2.5); ABG OXYGEN SATURATION 97 % (94-100); ABG PCO2 53 MMHG (35-45); ABG PO2 126 MMHG (79-93); ABG TCO2 28.1 MMOL/L (21.0-31.0)
[2020-08-17 03:05] LABS: CHLORIDE 113 MMOL/L (98-107); POTASSIUM 5.2 MMOL/L (3.6-5.0); SODIUM 147 MMOL/L (135-145)
[2020-08-17 03:06] LABS: ABG PH 7.32 (7.37-7.43); ALLENS TEST YES-POS; INSPIRED O2 45%; PATIENT TEMP 37.6; VENTILATOR YES
[2020-08-17 03:07] LABS: CALCIUM 7.7 MG/DL (8.5-10.1); GLUCOSE 152 MG/DL (70-105)
[2020-08-17 03:09] LABS: CARBON DIOXIDE 24 MMOL/L (21-32)
[2020-08-17 03:11] LABS: CREATININE SERUM 1.11 MG/DL (0.60-1.30); GFR ESTIMATED > 60
[2020-08-17 03:12] LABS: BUN/CREATININE RATIO 38
[2020-08-17 03:14] LABS: MAGNESIUM 3.1 MG/DL (1.6-2.4)
[2020-08-17 03:16] LABS: BASOPHILS % (AUTO) 0 % (0-10); EOSINOPHILS % (AUTO) 0 % (0-10); HEMATOCRIT 34 % (40-54); LYMPHOCYTES # (AUTO) 0.4 10^3/uL (1.0-4.0); LYMPHOCYTES % (AUTO) 6 % (12-44); MEAN CORPUSCULAR HEMOGLOBIN 31 pg (25-34); MEAN CORPUSCULAR HGB CONC 29 g/dL (32-36); MEAN CORPUSCULAR VOLUME 107 fL (80-99); MEAN PLATELET VOLUME 11.7 fL (9.0-12.2); MONOCYTES # (AUTO) 0.2 10^3/uL (0.0-1.0); MONOCYTES % (AUTO) 4 % (0-12); NEUTROPHILS # (AUTO) 4.8 10^3/uL (1.8-7.8); NEUTROPHILS % (AUTO) 81 % (42-75); PLATELET COUNT 213 10^3/uL (130-400); WHITE BLOOD COUNT 5.9 10^3/uL (4.3-11.0)
[2020-08-17] MEDS: POTASSIUM CL 10MEQ/50ML IVPB 50 ML IV SCH (03:37)
[2020-08-17] MEDS: MAGNESIUM 1 GM/100 ML IVPB 100 ML IV SCH (03:38)
[2020-08-17] MEDS: inSUlin ASPART (NovoLOG) 1 UNIT/0.01 ML (CHARGE PER UNIT) SC SCH ×3 (03:38→16:30)
[2020-08-17 07:22] VITALS: BP 154/82
[2020-08-17] MEDS: ENOXAPARIN 40 MG/0.4 ML (LOVENOX) SYR SC SCH (07:56)
[2020-08-17] MEDS: ARTIFICIAL TEARS OINT (LACRI-LUBE) 3.5 GM TUBE OU SCH ×2 (07:56→19:44)
[2020-08-17] MEDS: PANTOPRAZOLE 40 MG (PROTONIX) VIAL IV SCH (07:56)
[2020-08-17] MEDS: NOREPINEPHRINE 4 MG/250 ML 250 ML IV SCH ×2 (07:57→15:55)
--- NOTE | 2020-08-17 08:46 | Diagnostic Imaging Report ---
INDICATION: Respiratory failure. COMPARISON: 08/16/2020 FINDINGS: There is cardiomegaly. There are patchy bilateral pulmonary infiltrates. There is no pleural effusion or pneumothorax. Lines and tubes are in satisfactory positions. IMPRESSION: 1. Patchy bilateral pulmonary infiltrates which appear to have improved slightly since the prior examination. 2. Cardiomegaly. Dictated by: Dictated on workstation # [id number]
[2020-08-17 11:18] VITALS: BP 98/58
[2020-08-17] MEDS ORDERED: VANCOMYCIN INJECTION 0.1 MG in NS (IVPB) 250 ML IV SCH (13:00)
[2020-08-17] MEDS ORDERED: VANCOMYCIN 2000 MG/NS 500 ML IVPB IV NR ×2 (13:02)
--- NOTE | 2020-08-17 13:06 | NUR ---
PTD Vancomycin - Loading dose of 2gm over 2 hours, followed by 1gm every 8 hours.
[2020-08-17 14:36] VITALS: BP 104/62
--- NOTE | 2020-08-17 17:11 | Progress Note - Hospitalist ---
Subjective HPI/CC On Admission Date Seen by Provider: Aug 17, 2020 Time Seen by Provider: 10:20 Cal Ray Jr is a 60-year-old male with past medical history of hypertension, hyperlipidemia, peripheral arterial disease, GERD, prediabetes, who presented with fever and shortness of breath. At the time of my examination he is intuba medina and sedated. Subjective/Events-last exam He remains intubated and sedated. Focused Exam Time of Focused Exam: 19:19 Objective Exam Vital Signs Vital Signs Date Time Temp Pulse Resp B/P (MAP) Pulse Ox O2 Delivery O2 Flow Rate FiO2 08/17/20 17:00 61 25 100 Mechanical Ventilator 90.00 08/17/20 14:36 85 08/17/20 12:00 37.0 Capillary Refill : Less Than 3 Seconds General Appearance: No Apparent Distress, Obese, Other (intubated and sedated) Respiratory: No Respiratory Distress, Other (coarse breath sounds bilaterally, intubated and mechanically ventilated) Cardiovascular: Regular Rate, Rhythm, No Murmur Gastrointestinal: Normal Bowel Sounds, Non Tender, Soft Extremity: Normal Inspection, Non Tender, Pedal Edema Neurologic/Psychiatric: Other (sedated) Skin: Normal Color, Warm/Dry Results/Procedures Lab Laboratory Tests 08/17/20 02:40 Patient resulted labs reviewed. Imaging: Reviewed Imaging Report Assessment/Plan Assessment and Plan Assess & Plan/Chief Complaint Septic shock due to pneumonia MRSE bacteremia Acute respiratory failure due to COVID-19 Acute kidney injury superimposed on chronic kidney disease Blood cultures positive for Staph hominus and Staph epidermidis, methicillin resistant Repeat blood cultures with no growth to date TTE showed no evidence of endocarditis Continue Vancomycin Creatinine improving Decadron s/p Remdesivir s/p 1 unit convalescent plasma Vent settings and weaning per eICU, appreciate assistance T2DM Steroid-induced hyperglycemia A1C 6.8% Levemir SSI HTN Hold home meds HLD PAD GERD DVT Prophylaxis: Lovenox Lactic acidosis, resolved Diagnosis/Problems Diagnosis/Problems (1) Septic shock Status: Acute (2) Pneumonia Status: Acute (3) Acute respiratory failure due to COVID-19 Status: Acute (4) Endotracheally intubated Status: Acute (5) HTN (hypertension) Status: Chronic (6) HLD (hyperlipidemia) Status: Chronic (7) Prediabetes Status: Chronic (8) Steroid-induced hyperglycemia Status: Acute (9) PAD (peripheral artery disease) Status: Chronic (10) GERD (gastroesophageal reflux disease) Status: Chronic (11) Obesity Status: Chronic Qualifiers: Body mass index: BMI 33.0-33.9 (12) Staphylococcus epidermidis bacteremia Status: Acute (13) Methicillin resistant Staphylococcus epidermidis infection Status: Acute Clinical Quality Measures DVT/VTE Risk/Contraindication: Risk Factor Score Per Nursin RFS Level Per Nursing on Admit: 4+=Very High CLAUDIA FLYNN MD Aug 17, 2020 17:11
[2020-08-17 18:58] VITALS: BP 142/69
[2020-08-17] MEDS ORDERED: NS IV 1000 ML 1,000 ML ONE (19:32)
--- NOTE | 2020-08-17 20:00 | NUR ---
2000 HRS PT ASSESSMENT COMPLETED AT THIS TIME. PLEASE SEE ASSESSMENT FOR DETAILS. PT ALSO HAS LEFT RADIAL ARTERIAL LINE THAT WILL NOT DRAW BACK BLOOD. ARTERIAL LINE DOES FLUSH AND DOES CORRELATE WITHIN 20 MM OF NIBP CUFF. PT IN VENTILATED C #8 ETT 24 AT TEETH UPON ASSESSMENT.
[2020-08-17] MEDS: VANCOMYCIN 1 GM/NS 250 ML IVPB IV SCH ×2 (21:33)
[2020-08-17 22:55] VITALS: BP 141/64
[2020-08-18] MEDS: NOREPINEPHRINE 4 MG/250 ML 250 ML IV SCH ×6 (02:01→23:47)
[2020-08-18] MEDS: inSUlin ASPART (NovoLOG) 1 UNIT/0.01 ML (CHARGE PER UNIT) SC SCH ×5 (02:02→23:33)
[2020-08-18 02:40] VITALS: BP 126/81
[2020-08-18] MEDS: RT-ALBUTEROL INHALER HFA (VENTOLIN HFA) 18 GM IH SCH ×6 (02:40→22:53)
[2020-08-18] MEDS: fentaNYL DRIP PRE-MIX 250 ML IV SCH ×4 (02:55→20:55)
[2020-08-18 03:06] LABS: ABG BASE EXCESS 1.8 MMOL/L (-2.5-2.5); ABG OXYGEN SATURATION 82 % (94-100); ABG PCO2 44 MMHG (35-45); ABG PH 7.39 (7.37-7.43); ABG PO2 55 MMHG (79-93); ABG TCO2 27.7 MMOL/L (21.0-31.0)
[2020-08-18 03:07] LABS: BASOPHILS % (AUTO) 0 % (0-10); EOSINOPHILS % (AUTO) 0 % (0-10); HEMATOCRIT 35 % (40-54); HEMOGLOBIN 10.2 g/dL (13.3-17.7); LYMPHOCYTES # (AUTO) 0.4 10^3/uL (1.0-4.0); LYMPHOCYTES % (AUTO) 6 % (12-44); MEAN CORPUSCULAR HEMOGLOBIN 31 pg (25-34); MEAN CORPUSCULAR HGB CONC 29 g/dL (32-36); MEAN CORPUSCULAR VOLUME 106 fL (80-99); MEAN PLATELET VOLUME 11.3 fL (9.0-12.2); MONOCYTES # (AUTO) 0.2 10^3/uL (0.0-1.0); MONOCYTES % (AUTO) 4 % (0-12); NEUTROPHILS # (AUTO) 5.1 10^3/uL (1.8-7.8); NEUTROPHILS % (AUTO) 85 % (42-75); PLATELET COUNT 189 10^3/uL (130-400)
[2020-08-18 03:18] LABS: ALLENS TEST ART LINE; INSPIRED O2 60%; PATIENT TEMP 36.9; VENTILATOR YES
[2020-08-18 03:34] LABS: CHLORIDE 113 MMOL/L (98-107); POTASSIUM 5.6 MMOL/L (3.6-5.0); SODIUM 147 MMOL/L (135-145)
[2020-08-18 03:36] LABS: CALCIUM 7.8 MG/DL (8.5-10.1); GLUCOSE 167 MG/DL (70-105)
[2020-08-18 03:38] LABS: CARBON DIOXIDE 24 MMOL/L (21-32)
[2020-08-18 03:40] LABS: CREATININE SERUM 0.94 MG/DL (0.60-1.30); GFR ESTIMATED > 60
[2020-08-18 03:41] LABS: BUN/CREATININE RATIO 45
[2020-08-18 03:42] LABS: MAGNESIUM 2.9 MG/DL (1.6-2.4)
[2020-08-18] MEDS: MAGNESIUM 1 GM/100 ML IVPB 100 ML IV SCH (05:40)
[2020-08-18] MEDS: POTASSIUM CL 10MEQ/50ML IVPB 50 ML IV SCH (05:40)
--- NOTE | 2020-08-18 06:03 | Pulmonary Consultation ---
History of Present Illness History of Present Illness Date Seen by Provider: Aug 18, 2020 Time Seen by Provider: 05:58 Date of Admission Allergies and Home Medications Allergies Coded Allergies: niacin (Unverified Allergy, Unknown, 08/10/20) Home Medications Aspirin 81 Mg Tablet.dr, 81 MG PO DAILY, (Reported) Atenolol 25 Mg Tablet, 25 MG PO HS, (Reported) Atorvastatin Calcium 40 Mg Tablet, 40 MG PO DAILY, (Reported) Clopidogrel Bisulfate 75 Mg Tablet, 75 MG PO DAILY, (Reported) Fenofibrate Nanocrystallized 48 Mg Tablet, 48 MG PO DAILY, (Reported) Lisinopril/Hydrochlorothiazide 1 Each Tablet, 1 EA PO DAILY, (Reported) Metformin HCl 500 Mg Tab.er.24h, 500 MG PO 1700 W/MEAL, (Reported) Vitamin B Complex 1 Each Capsule, 1 EACH PO DAILY, (Reported) Past Tuydgbi-Obucuv-Lqlshg Hx Past Med/Social Hx: Reviewed Nursing Past Med/Soc Hx Patient Social History Alcohol Use: Denies Use Recreational Drug Use: No Smoking Status: Never a Smoker 2nd Hand Smoke Exposure: No Recent Foreign Travel: No Contact w/Someone Who Travel: No Recent Infectious Disease Expo: No Recent Hopitalizations: No Past Medical History Surgeries: Yes (STENTS IN RT LEG, BI LAT HANDS, RT KNEE) Eye Surgery, Orthopedic Respiratory: No Cardiac: Yes Hypertension Neurological: No Genitourinary: No Gastrointestinal: No Musculoskeletal: No Endocrine: No Cancer: No Integumentary: No Sepsis Event Evaluation Height, Weight, BMI Height: 5'9.00" Weight: 243lbs. 0oz. 110.201159pg; 33.00 BMI Method:Stated Exam Exam Vital Signs Date Time Temp Pulse Resp B/P (MAP) Pulse Ox O2 Delivery O2 Flow Rate FiO2 08/18/20 05:39 64 08/18/20 05:00 55 24 125/62 95 Mechanical Ventilator 60.00 08/18/20 04:00 70 21 122/60 91 Mechanical Ventilator 60.00 08/18/20 03:00 64 25 90 Mechanical Ventilator 60.00 08/18/20 02:40 71 29 96 60 08/18/20 02:34 74 08/18/20 02:33 74 08/18/20 02:01 81 08/18/20 02:00 60 24 146/66 95 Mechanical Ventilator 60.00 08/18/20 01:00 72 08/18/20 01:00 72 24 142/69 99 Mechanical Ventilator 60.00 08/18/20 00:00 36.9 Mechanical Ventilator 60.00 08/18/20 00:00 59 24 145/63 96 Mechanical Ventilator 60.00 08/17/20 23:00 61 22 141/60 95 Mechanical Ventilator 60.00 08/17/20 22:55 60 27 100 80 08/17/20 22:00 62 24 142/66 99 Mechanical Ventilator 80.00 08/17/20 21:00 63 25 143/64 100 Mechanical Ventilator 80.00 08/17/20 20:42 95 Mechanical Ventilator 80 08/17/20 20:00 63 24 141/63 99 Mechanical Ventilator 80.00 08/17/20 19:45 61 08/17/20 19:45 61 08/17/20 19:00 65 08/17/20 19:00 37.3 Mechanical Ventilator 80.00 08/17/20 19:00 65 23 138/64 99 Mechanical Ventilator 80.00 08/17/20 18:58 62 27 100 95 08/17/20 18:00 63 25 100 Mechanical Ventilator 80.00 08/17/20 17:00 61 25 100 Mechanical Ventilator 80.00 08/17/20 16:00 77 18 97 Mechanical Ventilator 80.00 08/17/20 15:02 73 08/17/20 15:00 73 18 98 Mechanical Ventilator 80.00 08/17/20 14:36 54 27 93 85 08/17/20 14:00 61 24 93 Mechanical Ventilator 90.00 08/17/20 13:00 63 22 93 Mechanical Ventilator 90.00 08/17/20 12:58 62 08/17/20 12:00 37.0 08/17/20 12:00 64 29 93 Mechanical Ventilator 90.00 08/17/20 11:18 65 27 93 85 08/17/20 11:00 65 29 93 Mechanical Ventilator 90.00 08/17/20 10:00 65 24 94 Mechanical Ventilator 90.00 08/17/20 09:00 68 28 92 Mechanical Ventilator 90.00 08/17/20 08:42 93 Mechanical Ventilator 85 08/17/20 08:03 77 08/17/20 08:03 77 08/17/20 08:00 37.2 08/17/20 08:00 78 20 92 Mechanical Ventilator 90.00 08/17/20 07:22 82 31 95 90 08/17/20 07:00 74 26 97 Mechanical Ventilator 90.00 08/17/20 07:00 76 08/17/20 06:00 74 18 95 Mechanical Ventilator 90.00 I & O 08/18/20 07:00 Intake Total 1250 ml Output Total 2550 ml Balance -1300 ml Height & Weight Height: 5'9.00" Weight: 243lbs. 0oz. 110.395829co; 33.00 BMI Method:Stated General Appearance: No Apparent Distress, Obese, Other (intubated and sedated) HEENT: PERRL/EOMI, Pharynx Normal Neck: Normal Inspection, Supple Respiratory: No Respiratory Distress, Other (coarse breath sounds bilaterally, intubated and mechanically ventilated) Cardiovascular: Regular Rate, Rhythm, No Murmur Capillary Refill: Less Than 3 Seconds Peripheral Pulses: 2+ Radial Pulses (R), 2+ Radial Pulses (L) Gastrointestinal: normal bowel sounds, non tender, soft Extremity: Normal Inspection, Non Tender, Pedal Edema Neurologic/Psychiatric: Other (sedated) Skin: Normal Color, Warm/Dry Results Lab Laboratory Tests 08/17/20 02:40 08/18/20 02:34 Assessment/Plan Assessment/Plan Acute respiratory failure with ARDS secondary to COVID -Currently on vent with PEEP 12 and Fi02 -Continue to monitor bacteremia -Restarted Vancomycin yesterday Acute respiratory failure due to COVID-19 Acute kidney injury superimposed on chronic kidney disease Blood cultures positive for Staph hominus and Staph epidermidis, methicillin resistant Repeat blood cultures with no growth to date TTE showed no evidence of endocarditis Continue Vancomycin Creatinine improving Decadron s/p Remdesivir s/p 1 unit convalescent plasma Vent settings and weaning per eICU, appreciate assistance T2DM Steroid-induced hyperglycemia A1C 6.8% Levemir SSI HTN Hold home meds HLD PAD GERD DVT Prophylaxis: Lovenox Lactic acidosis, resolved DRISS JOSHI DO Aug 18, 2020 06:03
[2020-08-18] MEDS: VANCOMYCIN 1 GM/NS 250 ML IVPB IV SCH ×6 (06:28→20:46)
[2020-08-18] MEDS: 1/2 NS IV SOLUTION 1,000 ML IV SCH ×2 (06:28→15:34)
--- NOTE | 2020-08-18 06:33 | NUR ---
L RADIAL ARTERIAL LINE DISCONTINUED AT THIS TIME. PRESSURE HELD 12 MIN. HEMOSTASIS OBTAINED.
[2020-08-18 06:58] VITALS: BP 124/66
--- NOTE | 2020-08-18 07:24 | Diagnostic Imaging Report ---
INDICATION: Hypoxia and acute respiratory failure. AP view of the chest is obtained with comparison made to study of one day earlier. Heart size and pulmonary vascularity are at the upper limits of normal. There is continued left basilar airspace disease. Mild diffuse background groundglass density is seen throughout the lungs. There is no evidence of pneumothorax. Support tubes and catheter are in stable position. Surgical findings are seen in the lower cervical spine and left shoulder with calcified granuloma in the right lung base. IMPRESSION: Continued mild background pulmonary edema and/or pneumonitis with localized left lower lobe infiltrates. Dictated by: Dictated on workstation # [id number]
[2020-08-18] MEDS: ENOXAPARIN 40 MG/0.4 ML (LOVENOX) SYR SC SCH (07:54)
[2020-08-18] MEDS: METOCLOPRAMIDE INJ 10 MG/2 ML (REGLAN) IVP SCH ×2 (07:55→20:46)
[2020-08-18] MEDS: PANTOPRAZOLE 40 MG (PROTONIX) VIAL IV SCH (07:55)
[2020-08-18] MEDS: ARTIFICIAL TEARS OINT (LACRI-LUBE) 3.5 GM TUBE OU SCH ×2 (07:55→20:45)
[2020-08-18 10:17] VITALS: BP 151/74
[2020-08-18] MEDS ORDERED: TROUGH ORDER-PHARMACY XX NR (13:00)
--- NOTE | 2020-08-18 13:43 | NUR ---
VANCOMYCIN NON-ADMINISTERED DUE TO VANC TROUGH BEING 19.9. THIS RN INSTRUCTED BY DR. JOSHI TO CONSIDER THIS 20.
[2020-08-18 14:18] VITALS: BP 135/63
--- NOTE | 2020-08-18 14:22 | NUR ---
ptd vancomycin day 8 of vancomycin (missed 1 day of therapy per record 08/16) labs: scr 0.94 vancomycin trough 19.9 plan: per Dr Meadows order to nurse (hold 1400 dose). I will change vancomycin to 1gram iv q12h, next dose tonight @ 2100.
--- NOTE | 2020-08-18 17:13 | NUR ---
During care rounds, it was noted that TF is currently on hold, as the nurse is waiting on TF bags. Would recommend restarting Pulmocare 1.5 at rate of 15ml/hr, with 25ml/hr flushes q4h for hydration, when bags become available. Will continue to follow and reassess as pt needs, intake, and status change. Leann Mccall, MS RD LD [phone] cell
[2020-08-18 19:26] VITALS: BP 137/73
[2020-08-18 22:53] VITALS: BP 135/75
[2020-08-19] MEDS: fentaNYL DRIP PRE-MIX 250 ML IV SCH ×6 (02:07→19:53)
[2020-08-19] MEDS: 1/2 NS IV SOLUTION 1,000 ML IV SCH ×2 (02:07→15:44)
[2020-08-19 02:32] LABS: BASOPHILS % (AUTO) 0 % (0-10); EOSINOPHILS % (AUTO) 0 % (0-10); HEMATOCRIT 34 % (40-54); HEMOGLOBIN 9.9 g/dL (13.3-17.7); LYMPHOCYTES # (AUTO) 0.4 10^3/uL (1.0-4.0); LYMPHOCYTES % (AUTO) 6 % (12-44); MEAN CORPUSCULAR HEMOGLOBIN 31 pg (25-34); MEAN CORPUSCULAR HGB CONC 29 g/dL (32-36); MEAN CORPUSCULAR VOLUME 106 fL (80-99); MEAN PLATELET VOLUME 11.3 fL (9.0-12.2); MONOCYTES # (AUTO) 0.3 10^3/uL (0.0-1.0); MONOCYTES % (AUTO) 4 % (0-12); NEUTROPHILS # (AUTO) 5.6 10^3/uL (1.8-7.8); NEUTROPHILS % (AUTO) 88 % (42-75); PLATELET COUNT 171 10^3/uL (130-400); WHITE BLOOD COUNT 6.4 10^3/uL (4.3-11.0)
[2020-08-19 02:44] LABS: ABG BASE EXCESS -0.2 MMOL/L (-2.5-2.5); ABG OXYGEN SATURATION 95 % (94-100); ABG PCO2 48 MMHG (35-45); ABG PO2 83 MMHG (79-93); ABG TCO2 26.5 MMOL/L (21.0-31.0)
[2020-08-19 02:45] LABS: ABG PH 7.35 (7.37-7.43)
[2020-08-19 02:46] LABS: ALLENS TEST YES-POS; INSPIRED O2 100%; PATIENT TEMP 36.4; VENTILATOR YES
[2020-08-19 02:47] LABS: CHLORIDE 112 MMOL/L (98-107); POTASSIUM 5.1 MMOL/L (3.6-5.0); SODIUM 143 MMOL/L (135-145)
[2020-08-19 02:48] LABS: CALCIUM 7.4 MG/DL (8.5-10.1)
[2020-08-19 02:49] LABS: GLUCOSE 138 MG/DL (70-105)
[2020-08-19 02:51] LABS: CARBON DIOXIDE 22 MMOL/L (21-32)
[2020-08-19 02:53] LABS: CREATININE SERUM 0.86 MG/DL (0.60-1.30); GFR ESTIMATED > 60
[2020-08-19 02:54] LABS: BUN/CREATININE RATIO 47
[2020-08-19 02:55] LABS: MAGNESIUM 2.7 MG/DL (1.6-2.4)
[2020-08-19] MEDS: MAGNESIUM 1 GM/100 ML IVPB 100 ML IV SCH (03:03)
[2020-08-19] MEDS: POTASSIUM CL 10MEQ/50ML IVPB 50 ML IV SCH (03:03)
[2020-08-19] MEDS: inSUlin ASPART (NovoLOG) 1 UNIT/0.01 ML (CHARGE PER UNIT) SC SCH ×4 (03:03→23:47)
[2020-08-19 03:06] LABS: BAND NEUTROPHILS 4 %; LYMPHOCYTES % (MANUAL) 4 %; MONOCYTES % (MANUAL) 3 %; NEUTROPHILS % (MANUAL) 89 %
[2020-08-19 03:07] LABS: RBC MORPH NORMAL
[2020-08-19] MEDS: RT-ALBUTEROL INHALER HFA (VENTOLIN HFA) 18 GM IH SCH ×6 (03:27→21:52)
--- NOTE | 2020-08-19 04:40 | Pulmonary Progress Note ---
Subjective Time Seen by a Provider: 04:35 Subjective/Events-last exam PT is sedated on vent. He is requiring more oxygen. Sepsis Event Evaluation Height, Weight, BMI Height: 5'9.00" Weight: 243lbs. 0oz. 110.385914vs; 33.00 BMI Method:Stated Focused Exam Time of Focused Exam: 19:19 Exam Exam Vital Signs Date Time Temp Pulse Resp B/P (MAP) Pulse Ox O2 Delivery O2 Flow Rate FiO2 08/19/20 04:00 36.3 Mechanical Ventilator 100.00 08/19/20 03:27 63 27 93 100 08/19/20 02:08 63 135/74 08/19/20 02:08 63 135/74 08/19/20 01:00 63 08/18/20 23:50 Mechanical Ventilator 100.00 08/18/20 23:30 36.9 Mechanical Ventilator 80.00 08/18/20 22:53 62 24 93 80 08/18/20 21:02 Mechanical Ventilator 80.00 08/18/20 20:56 67 138/75 08/18/20 20:56 67 138/75 08/18/20 20:54 Mechanical Ventilator 90.00 08/18/20 20:35 94 Mechanical Ventilator 100 08/18/20 19:54 Mechanical Ventilator 100.00 08/18/20 19:40 36.8 65 25 138/82 97 Mechanical Ventilator 55.00 Arterial Line 08/18/20 19:26 80 32 98 65 08/18/20 19:00 64 08/18/20 18:00 71 24 139/74 90 Mechanical Ventilator 60.00 08/18/20 17:14 Mechanical Ventilator 60.00 08/18/20 17:00 65 25 140/69 99 Mechanical Ventilator 65.00 08/18/20 16:00 69 21 138/67 98 Mechanical Ventilator 65.00 08/18/20 15:41 Mechanical Ventilator 65.00 08/18/20 15:29 37.0 08/18/20 15:27 80 135/63 08/18/20 15:27 81 135/63 08/18/20 15:00 59 22 141/66 94 Mechanical Ventilator 75.00 08/18/20 14:18 74 27 94 75 08/18/20 14:00 58 25 132/66 94 Mechanical Ventilator 75.00 08/18/20 13:00 53 24 141/105 93 Mechanical Ventilator 75.00 08/18/20 13:00 56 08/18/20 12:00 70 23 142/71 92 Mechanical Ventilator 75.00 08/18/20 11:00 66 16 147/74 94 Mechanical Ventilator 75.00 08/18/20 10:17 68 27 94 75 08/18/20 10:03 Mechanical Ventilator 75.00 08/18/20 10:00 78 17 143/71 86 Mechanical Ventilator 60.00 08/18/20 09:00 57 24 124/62 94 Mechanical Ventilator 60.00 08/18/20 08:25 94 Mechanical Ventilator 60 08/18/20 08:00 57 25 120/60 94 Mechanical Ventilator 60.00 08/18/20 07:54 55 122/62 08/18/20 07:53 56 122/62 08/18/20 07:30 Mechanical Ventilator 60.00 08/18/20 07:00 53 24 124/66 93 Mechanical Ventilator 60.00 08/18/20 06:58 53 25 93 60 08/18/20 06:45 56 08/18/20 06:00 54 25 128/66 93 Mechanical Ventilator 60.00 08/18/20 05:39 64 08/18/20 05:00 55 24 125/62 95 Mechanical Ventilator 60.00 I & O 08/19/20 07:00 Intake Total 4205 ml Output Total 1760 ml Balance 2445 ml Height & Weight Height: 5'9.00" Weight: 243lbs. 0oz. 110.973393qg; 33.00 BMI Method:Stated General Appearance: No Apparent Distress, Obese, Other (intubated and sedated) HEENT: PERRL/EOMI, Pharynx Normal Neck: Normal Inspection, Supple Respiratory: No Respiratory Distress, Other (coarse breath sounds bilaterally, intubated and mechanically ventilated) Cardiovascular: Regular Rate, Rhythm, No Murmur Capillary Refill: Less Than 3 Seconds Peripheral Pulses: 2+ Radial Pulses (R), 2+ Radial Pulses (L) Gastrointestinal: normal bowel sounds, non tender, soft Extremity: Normal Inspection, Non Tender, Pedal Edema Neurologic/Psychiatric: Other (sedated) Skin: Normal Color, Warm/Dry Results Lab Laboratory Tests 08/18/20 02:34 08/19/20 02:20 Assessment/Plan Assessment/Plan Acute respiratory failure with ARDS secondary to COVID -Currently on vent with PEEP 12-- Increase to 16 PEEP - Continue to Prone x 16hours per day -DDIMER 13.98 -- Start Lovenox 1mg/kg Q12 with first dose now. -Give 40mg of IV Lasix -Repeat PCT bacteremia -Vancomycin Acute kidney injury superimposed on chronic kidney disease Blood cultures positive for Staph hominus and Staph epidermidis, methicillin resistant TTE showed no evidence of endocarditis Continue Vancomycin Creatinine improving Decadron s/p Remdesivir s/p 1 unit convalescent plasma T2DM Steroid-induced hyperglycemia Levemir SSI HTN Hold home meds HLD PAD GERD DVT Prophylaxis: Lovenox Lactic acidosis, resolved DRISS JOSHI DO Aug 19, 2020 04:40
[2020-08-19] MEDS ORDERED: ENOXAPARIN 100 MG/1 ML (LOVENOX) SYR ONE ×2 (05:10→21:00)
--- NOTE | 2020-08-19 05:21 | NUR ---
PEEP to [address] Meadows order. Niesha RT notified.
[2020-08-19] MEDS: ENOXAPARIN 40 MG/0.4 ML (LOVENOX) SYR SC SCH ×2 (05:23→21:07)
[2020-08-19] MEDS: ARTIFICIAL TEARS OINT (LACRI-LUBE) 3.5 GM TUBE OU SCH ×2 (07:53→21:07)
[2020-08-19] MEDS: VANCOMYCIN 1 GM/NS 250 ML IVPB IV SCH ×4 (07:53→21:07)
[2020-08-19] MEDS: METOCLOPRAMIDE INJ 10 MG/2 ML (REGLAN) IVP SCH ×2 (07:54→21:07)
[2020-08-19] MEDS: PANTOPRAZOLE 40 MG (PROTONIX) VIAL IV SCH (07:54)
[2020-08-19] MEDS ORDERED: FUROSEMIDE 40 MG/4 ML INJ (LASIX) ONE (07:57)
[2020-08-19] MEDS ORDERED: FUROSEMIDE 40 MG/4 ML INJ (LASIX) IVP ONE (08:00)
--- NOTE | 2020-08-19 09:04 | Diagnostic Imaging Report ---
INDICATION: Acute respiratory failure. TIME OF EXAM: 8:16 AM. COMPARISON: Correlation is made with the prior chest from one day earlier. FINDINGS: The ET tube has its tip above the jason. The right IJ line has its tip overlying the SVC. The NG tube passes below the diaphragm. There are patchy airspace infiltrates throughout both lungs, consistent with pneumonia. No effusion or pneumothorax is seen. IMPRESSION: Continued patchy bilateral airspace pulmonary infiltrates, consistent with pneumonia. Dictated by: Dictated on workstation # [id number]
[2020-08-19 10:44] VITALS: BP 118/69
[2020-08-19] MEDS: NOREPINEPHRINE 4 MG/250 ML 250 ML IV SCH ×3 (10:58→20:12)
[2020-08-19 14:04] VITALS: BP 124/64
--- NOTE | 2020-08-19 15:05 | NUR ---
During care rounds, it was noted that pt is receiving Pulmocare at rate of 15ml/hr with 25ml free water flushes q4h. Would recommend conservative increases of 10ml q12h as tolerated, toward goal rate of 45ml/hr. Will continue to follow and reassess as pt needs, intake, and status change. Leann Mccall, MS RD LD [phone] cell
[2020-08-19] MEDS ORDERED: ZINC OXIDE 16% OINT (BUTT PASTE) 57 GM TUBE TOP PRN (16:30)
[2020-08-19 18:16] VITALS: BP 131/66
[2020-08-19 21:52] VITALS: BP 137/71
[2020-08-20] MEDS: fentaNYL DRIP PRE-MIX 250 ML IV SCH ×5 (01:26→21:26)
[2020-08-20] MEDS: NOREPINEPHRINE 4 MG/250 ML 250 ML IV SCH ×4 (01:26→21:26)
[2020-08-20 01:31] VITALS: BP 135/69
[2020-08-20] MEDS: RT-ALBUTEROL INHALER HFA (VENTOLIN HFA) 18 GM IH SCH ×6 (01:31→21:57)
[2020-08-20 03:12] LABS: ABG BASE EXCESS 0.9 MMOL/L (-2.5-2.5); ABG OXYGEN SATURATION 89 % (94-100); ABG PCO2 51 MMHG (35-45); ABG PO2 67 MMHG (79-93); ABG TCO2 27.6 MMOL/L (21.0-31.0)
[2020-08-20 03:17] LABS: BASOPHILS % (AUTO) 0 % (0-10); EOSINOPHILS # (AUTO) 0.1 10^3/uL (0.0-0.3); EOSINOPHILS % (AUTO) 1 % (0-10); HEMATOCRIT 33 % (40-54); HEMOGLOBIN 9.9 g/dL (13.3-17.7); LYMPHOCYTES # (AUTO) 0.4 10^3/uL (1.0-4.0); LYMPHOCYTES % (AUTO) 6 % (12-44); MEAN CORPUSCULAR HEMOGLOBIN 31 pg (25-34); MEAN CORPUSCULAR HGB CONC 30 g/dL (32-36); MEAN CORPUSCULAR VOLUME 104 fL (80-99); MEAN PLATELET VOLUME 11.8 fL (9.0-12.2); MONOCYTES # (AUTO) 0.1 10^3/uL (0.0-1.0); MONOCYTES % (AUTO) 2 % (0-12); NEUTROPHILS # (AUTO) 5.6 10^3/uL (1.8-7.8); NEUTROPHILS % (AUTO) 90 % (42-75); PLATELET COUNT 155 10^3/uL (130-400); WHITE BLOOD COUNT 6.2 10^3/uL (4.3-11.0)
[2020-08-20 03:20] LABS: ABG PH 7.35 (7.37-7.43); ALLENS TEST YES-POS
[2020-08-20 03:21] LABS: INSPIRED O2 60%; PATIENT TEMP 37.6; VENTILATOR YES
[2020-08-20 03:31] LABS: CHLORIDE 110 MMOL/L (98-107); POTASSIUM 4.4 MMOL/L (3.6-5.0); SODIUM 142 MMOL/L (135-145)
[2020-08-20 03:32] LABS: CALCIUM 7.3 MG/DL (8.5-10.1)
[2020-08-20 03:33] LABS: GLUCOSE 145 MG/DL (70-105)
[2020-08-20 03:34] LABS: CARBON DIOXIDE 22 MMOL/L (21-32)
[2020-08-20 03:36] LABS: PHOSPHORUS 3.3 MG/DL (2.3-4.7)
[2020-08-20 03:37] LABS: BUN/CREATININE RATIO 45; GFR ESTIMATED > 60
[2020-08-20 03:39] LABS: MAGNESIUM 2.6 MG/DL (1.6-2.4)
[2020-08-20] MEDS: inSUlin ASPART (NovoLOG) 1 UNIT/0.01 ML (CHARGE PER UNIT) SC SCH ×4 (03:42→22:52)
[2020-08-20] MEDS: POTASSIUM CL 10MEQ/50ML IVPB 50 ML IV SCH (03:42)
[2020-08-20] MEDS: MAGNESIUM 1 GM/100 ML IVPB 100 ML IV SCH (03:42)
--- NOTE | 2020-08-20 05:12 | Pulmonary Progress Note ---
Subjective Time Seen by a Provider: 05:12 Subjective/Events-last exam Sedated on vent. Sepsis Event Evaluation Height, Weight, BMI Height: 5'9.00" Weight: 243lbs. 0oz. 110.046547pu; 33.00 BMI Method:Stated Focused Exam Time of Focused Exam: 19:19 Exam Exam Vital Signs Date Time Temp Pulse Resp B/P (MAP) Pulse Ox O2 Delivery O2 Flow Rate FiO2 08/20/20 04:45 145/69 08/20/20 04:44 145/69 08/20/20 01:31 71 28 95 60 08/20/20 01:30 Mechanical Ventilator 60.00 08/20/20 01:00 71 08/19/20 23:44 37.2 Mechanical Ventilator 65.00 08/19/20 23:00 90 20 137/74 93 Mechanical Ventilator 70.00 08/19/20 22:00 91 22 135/72 94 Mechanical Ventilator 70.00 08/19/20 21:52 89 25 95 70 08/19/20 21:13 81 133/68 08/19/20 21:12 81 133/68 08/19/20 21:00 67 25 133/68 97 Mechanical Ventilator 70.00 08/19/20 20:00 68 24 129/65 97 Mechanical Ventilator 70.00 08/19/20 20:00 97 Mechanical Ventilator 70 08/19/20 19:50 37.1 25 Mechanical Ventilator 70.00 08/19/20 19:00 68 08/19/20 19:00 67 25 132/66 97 Mechanical Ventilator 70.00 08/19/20 18:16 67 25 97 70 08/19/20 18:00 68 25 131/66 97 Mechanical Ventilator 70.00 08/19/20 17:00 67 22 126/68 98 Mechanical Ventilator 70.00 08/19/20 16:00 75 24 126/64 98 Mechanical Ventilator 70.00 08/19/20 15:41 36.6 08/19/20 15:33 88 126/75 08/19/20 15:00 84 25 126/75 93 Mechanical Ventilator 70.00 08/19/20 14:40 Mechanical Ventilator 70.00 08/19/20 14:39 84 08/19/20 14:39 84 123/73 08/19/20 14:04 70 25 98 80 08/19/20 14:00 70 24 124/64 97 Mechanical Ventilator 100.00 08/19/20 13:03 71 08/19/20 13:00 70 24 119/67 97 Mechanical Ventilator 100.00 08/19/20 12:00 70 21 118/64 96 Mechanical Ventilator 100.00 08/19/20 11:45 36.6 08/19/20 11:00 81 20 130/72 97 Mechanical Ventilator 100.00 08/19/20 10:44 79 25 99 100 08/19/20 10:00 88 22 128/71 96 Mechanical Ventilator 100.00 08/19/20 09:00 93 Mechanical Ventilator 100 08/19/20 09:00 80 24 137/75 99 Mechanical Ventilator 100.00 08/19/20 08:26 36.4 08/19/20 08:00 87 136/77 08/19/20 08:00 85 25 133/67 92 Mechanical Ventilator 100.00 08/19/20 07:59 89 136/77 08/19/20 07:15 66 25 93 80 08/19/20 07:00 67 25 137/74 93 Mechanical Ventilator 100.00 08/19/20 06:38 71 08/19/20 05:24 Mechanical Ventilator 90.00 I & O 08/20/20 07:00 Intake Total 3635 ml Output Total 3215 ml Balance 420 ml Height & Weight Height: 5'9.00" Weight: 243lbs. 0oz. 110.715697wr; 33.00 BMI Method:Stated General Appearance: No Apparent Distress, Obese, Other (intubated and sedated) HEENT: PERRL/EOMI, Pharynx Normal Neck: Normal Inspection, Supple Respiratory: No Respiratory Distress, Other (coarse breath sounds bilaterally, intubated and mechanically ventilated) Cardiovascular: Regular Rate, Rhythm, No Murmur Capillary Refill: Less Than 3 Seconds Peripheral Pulses: 2+ Radial Pulses (R), 2+ Radial Pulses (L) Gastrointestinal: normal bowel sounds, non tender, soft Extremity: Normal Inspection, Non Tender, Pedal Edema Neurologic/Psychiatric: Other (sedated) Skin: Normal Color, Warm/Dry Results Lab Laboratory Tests 08/19/20 02:20 08/20/20 03:00 Assessment/Plan Assessment/Plan Acute respiratory failure with ARDS secondary to COVID -Currently on vent with 18 PEEP - Continue to Prone x 16hours per day -DDIMER 13.98 -- Start Lovenox 1mg/kg Q12 with first dose now. -Repeat Lasix bacteremia -Vancomycin Acute kidney injury superimposed on chronic kidney disease Blood cultures positive for Staph hominus and Staph epidermidis, methicillin resistant TTE showed no evidence of endocarditis Continue Vancomycin Creatinine improving Decadron s/p Remdesivir s/p 1 unit convalescent plasma T2DM Steroid-induced hyperglycemia Levemir SSI HTN Hold home meds HLD PAD GERD DVT Prophylaxis: Lovenox Lactic acidosis, resolved DRISS JOSHI DO Aug 20, 2020 05:12
[2020-08-20] MEDS ORDERED: FUROSEMIDE 40 MG/4 ML INJ (LASIX) ONE (05:14)
[2020-08-20] MEDS ORDERED: FUROSEMIDE 40 MG/4 ML INJ (LASIX) IVP ONE (05:15)
[2020-08-20 06:30] VITALS: BP 155/78
[2020-08-20] MEDS ORDERED: ACETAMINOPHEN 500 MG TAB (TYLENOL) ONE (07:58)
[2020-08-20] MEDS: VANCOMYCIN 1 GM/NS 250 ML IVPB IV SCH ×4 (08:02→19:51)
[2020-08-20] MEDS: PANTOPRAZOLE 40 MG (PROTONIX) VIAL IV SCH (08:03)
[2020-08-20] MEDS: ARTIFICIAL TEARS OINT (LACRI-LUBE) 3.5 GM TUBE OU SCH ×2 (08:04→19:54)
[2020-08-20] MEDS: METOCLOPRAMIDE INJ 10 MG/2 ML (REGLAN) IVP SCH ×2 (08:04→19:54)
[2020-08-20] MEDS: ACETAMINOPHEN 500 MG TAB (TYLENOL) PO PRN (08:05)
[2020-08-20] MEDS: ENOXAPARIN 100 MG/1 ML (LOVENOX) SYR SC SCH ×2 (08:15→19:52)
--- NOTE | 2020-08-20 08:40 | Diagnostic Imaging Report ---
INDICATION: Intubation, infiltrate. TECHNIQUE: Single view chest at 7:34 AM. CORRELATION STUDY: 08/19/2020. FINDINGS: Endotracheal tube remains in position below the clavicles above the jason. Gastric tube passes below the left diaphragm and edge of film. Right IJ central line tip in the high right paramediastinal region, generally stable. Heart size and mediastinum unchanged. Vascular congestion is present, perhaps slightly less severe. Continued patchy bilateral pulmonary opacities, most compatible with infiltrate, again demonstrated. Findings appear to be relatively stable to slightly increased. IMPRESSION: 1. Stable support lines and tubes. 2. Component of vascular congestion present. 3. Bilateral pulmonary infiltrates, stable to slightly more prominent. Dictated by: Dictated on workstation # [id number]
[2020-08-20 10:59] VITALS: BP 131/78
[2020-08-20] MEDS ORDERED: guaiFENesin SYRUP 100 MG/5 ML 10 ML (ROBITUSSIN SF) NG PRN (14:00)
[2020-08-20 14:42] VITALS: BP 110/66
--- NOTE | 2020-08-20 17:23 | NUR ---
During care rounds, it was noted that pt is receiving Pulmocare at rate of 25ml/hr with 25ml free water flushes q4h. Would recommend conservative increases of 10ml q12h as tolerated, toward goal rate of 45ml/hr. Will continue to follow and reassess as pt needs, intake, and status change. Leann Mccall, MS RD LD [phone] cell
[2020-08-20 19:06] VITALS: BP 125/73
[2020-08-20] MEDS: 1/2 NS IV SOLUTION 1,000 ML IV SCH (19:55)
[2020-08-20 21:58] VITALS: BP 134/74
[2020-08-21] MEDS: NOREPINEPHRINE 4 MG/250 ML 250 ML IV SCH ×3 (00:15→17:30)
[2020-08-21 01:54] VITALS: BP 127/74
[2020-08-21] MEDS: RT-ALBUTEROL INHALER HFA (VENTOLIN HFA) 18 GM IH SCH ×6 (01:54→21:34)
[2020-08-21] MEDS: fentaNYL DRIP PRE-MIX 250 ML IV SCH ×4 (03:00→21:21)
[2020-08-21 03:41] LABS: BASOPHILS % (AUTO) 0 % (0-10); EOSINOPHILS % (AUTO) 0 % (0-10); HEMATOCRIT 33 % (40-54); HEMOGLOBIN 9.7 g/dL (13.3-17.7); LYMPHOCYTES # (AUTO) 0.3 10^3/uL (1.0-4.0); LYMPHOCYTES % (AUTO) 4 % (12-44); MEAN CORPUSCULAR HEMOGLOBIN 31 pg (25-34); MEAN CORPUSCULAR HGB CONC 30 g/dL (32-36); MEAN CORPUSCULAR VOLUME 104 fL (80-99); MEAN PLATELET VOLUME 12.5 fL (9.0-12.2); MONOCYTES # (AUTO) 0.1 10^3/uL (0.0-1.0); MONOCYTES % (AUTO) 2 % (0-12); NEUTROPHILS # (AUTO) 7.8 10^3/uL (1.8-7.8); NEUTROPHILS % (AUTO) 94 % (42-75); PLATELET COUNT 142 10^3/uL (130-400); WHITE BLOOD COUNT 8.3 10^3/uL (4.3-11.0)
[2020-08-21 03:50] LABS: CHLORIDE 109 MMOL/L (98-107); POTASSIUM 4.5 MMOL/L (3.6-5.0); SODIUM 142 MMOL/L (135-145)
[2020-08-21 03:51] LABS: CALCIUM 7.4 MG/DL (8.5-10.1)
[2020-08-21 03:52] LABS: GLUCOSE 141 MG/DL (70-105)
[2020-08-21 03:53] LABS: CARBON DIOXIDE 23 MMOL/L (21-32)
[2020-08-21 03:55] LABS: CREATININE SERUM 0.92 MG/DL (0.60-1.30); GFR ESTIMATED > 60; PHOSPHORUS 3.7 MG/DL (2.3-4.7)
[2020-08-21 03:56] LABS: BUN/CREATININE RATIO 47
[2020-08-21] MEDS: POTASSIUM CL 10MEQ/50ML IVPB 50 ML IV SCH (06:39)
[2020-08-21] MEDS: inSUlin ASPART (NovoLOG) 1 UNIT/0.01 ML (CHARGE PER UNIT) SC SCH ×3 (06:40→17:30)
[2020-08-21] MEDS: MAGNESIUM 1 GM/100 ML IVPB 100 ML IV SCH (06:40)
[2020-08-21 07:07] VITALS: BP 147/70
[2020-08-21] MEDS: PANTOPRAZOLE 40 MG (PROTONIX) VIAL IV SCH (07:44)
[2020-08-21] MEDS: METOCLOPRAMIDE INJ 10 MG/2 ML (REGLAN) IVP SCH ×2 (07:44→21:13)
[2020-08-21] MEDS: ENOXAPARIN 100 MG/1 ML (LOVENOX) SYR SC SCH ×2 (07:44→21:13)
[2020-08-21] MEDS: ARTIFICIAL TEARS OINT (LACRI-LUBE) 3.5 GM TUBE OU SCH ×2 (07:45→21:13)
[2020-08-21 08:08] LABS: ABG PH 7.36 (7.37-7.43); ALLENS TEST YES-POS; INSPIRED O2 80%; PATIENT TEMP 100.6; VENTILATOR YES
[2020-08-21 08:09] LABS: ABG BASE EXCESS -0.2 MMOL/L (-2.5-2.5); ABG OXYGEN SATURATION 84 % (94-100); ABG PCO2 45 MMHG (35-45); ABG PO2 54 MMHG (79-93)
[2020-08-21] MEDS: ACETAMINOPHEN 500 MG TAB (TYLENOL) PO PRN (08:30)
[2020-08-21] MEDS ORDERED: PHARMACY TO DOSE IV SCH (09:30)
--- NOTE | 2020-08-21 09:31 | Pulmonary Progress Note ---
Subjective Time Seen by a Provider: 09:26 Sepsis Event Evaluation Height, Weight, BMI Height: 5'9.00" Weight: 243lbs. 0oz. 110.974906ng; 33.00 BMI Method:Stated Focused Exam Time of Focused Exam: 19:19 Exam Exam Vital Signs Date Time Temp Pulse Resp B/P (MAP) Pulse Ox O2 Delivery O2 Flow Rate FiO2 08/21/20 08:46 Mechanical Ventilator 100.00 08/21/20 08:30 38.4 08/21/20 08:24 38.4 08/21/20 07:35 38.1 Mechanical Ventilator 80.00 08/21/20 07:32 108 147/70 08/21/20 07:32 108 147/70 08/21/20 07:07 108 32 99 80 08/21/20 06:15 Mechanical Ventilator 80.00 08/21/20 06:00 101 19 149/70 93 Mechanical Ventilator 70.00 08/21/20 05:00 94 28 154/81 90 Mechanical Ventilator 70.00 08/21/20 04:00 36.8 25 Mechanical Ventilator 70.00 08/21/20 04:00 93 28 139/76 95 Mechanical Ventilator 70.00 08/21/20 03:00 90 28 145/81 97 Mechanical Ventilator 70.00 08/21/20 02:00 80 22 132/75 95 Mechanical Ventilator 70.00 08/21/20 01:54 79 25 96 80 08/21/20 01:00 80 25 133/75 97 Mechanical Ventilator 70.00 08/21/20 01:00 80 08/21/20 00:09 80 140/77 08/21/20 00:09 80 140/77 08/21/20 00:00 82 25 135/76 96 Mechanical Ventilator 70.00 08/20/20 23:00 80 25 132/75 96 Mechanical Ventilator 70.00 08/20/20 22:50 37.1 Mechanical Ventilator 70.00 08/20/20 22:00 80 24 131/73 96 Mechanical Ventilator 80.00 08/20/20 21:58 79 25 96 80 08/20/20 21:00 82 24 128/71 95 Mechanical Ventilator 80.00 08/20/20 20:00 79 24 128/69 95 Mechanical Ventilator 80.00 08/20/20 20:00 95 Mechanical Ventilator 80 08/20/20 19:45 37.1 Mechanical Ventilator 80.00 08/20/20 19:06 84 25 95 80 08/20/20 19:00 83 08/20/20 19:00 83 24 124/70 95 Mechanical Ventilator 80.00 08/20/20 18:00 81 22 124/74 95 Mechanical Ventilator 80.00 08/20/20 17:26 83 130/76 08/20/20 17:26 82 130/76 08/20/20 17:00 84 25 129/75 95 Mechanical Ventilator 80.00 08/20/20 16:48 Mechanical Ventilator 80.00 08/20/20 16:00 82 22 123/68 96 Mechanical Ventilator 85.00 08/20/20 15:25 Mechanical Ventilator 85.00 08/20/20 15:25 37.4 08/20/20 15:00 89 25 117/68 97 Mechanical Ventilator 100.00 08/20/20 14:42 92 25 98 90 08/20/20 14:00 90 24 110/69 96 Mechanical Ventilator 100.00 08/20/20 13:00 89 22 104/65 95 Mechanical Ventilator 100.00 08/20/20 12:37 114 08/20/20 12:00 103 13 131/78 90 Mechanical Ventilator 100.00 08/20/20 11:51 38.0 08/20/20 11:04 100 121/78 08/20/20 11:03 100 121/78 08/20/20 11:00 103 25 131/78 92 Mechanical Ventilator 100.00 08/20/20 10:59 104 30 92 90 08/20/20 10:00 101 23 96/65 93 Mechanical Ventilator 100.00 I & O 08/21/20 07:00 Intake Total 2930 ml Output Total 2980 ml Balance -50 ml Height & Weight Height: 5'9.00" Weight: 243lbs. 0oz. 110.996102xy; 33.00 BMI Method:Stated General Appearance: No Apparent Distress, Obese, Other (intubated and sedated) HEENT: PERRL/EOMI, Pharynx Normal Neck: Normal Inspection, Supple Respiratory: No Respiratory Distress, Other (coarse breath sounds bilaterally, intubated and mechanically ventilated) Cardiovascular: Regular Rate, Rhythm, No Murmur Capillary Refill: Less Than 3 Seconds Peripheral Pulses: 2+ Radial Pulses (R), 2+ Radial Pulses (L) Gastrointestinal: normal bowel sounds, non tender, soft Extremity: Normal Inspection, Non Tender, Pedal Edema Neurologic/Psychiatric: Other (sedated) Skin: Normal Color, Warm/Dry Results Lab Laboratory Tests 08/20/20 03:00 08/21/20 02:50 Assessment/Plan Assessment/Plan Acute respiratory failure with ARDS secondary to COVID -Currently on vent with 18 PEEP - Continue to Prone x 16hours per day -DDIMER 13.98 -- Start Lovenox 1mg/kg Q12 with first dose now. -Repeat Lasix bacteremia -Vancomycin Acute kidney injury superimposed on chronic kidney disease Blood cultures positive for Staph hominus and Staph epidermidis, methicillin resistant TTE showed no evidence of endocarditis Continue Vancomycin Creatinine improving Decadron s/p Remdesivir s/p 1 unit convalescent plasma T2DM Steroid-induced hyperglycemia Levemir SSI HTN Hold home meds HLD PAD GERD DVT Prophylaxis: Lovenox Lactic acidosis, resolved DRISS JOSHI DO Aug 21, 2020 09:31
[2020-08-21] MEDS ORDERED: PIPERACILLIN/TAZO 4.5 GM/NS 100 ML IV ONE ×2 (10:00)
[2020-08-21 10:07] VITALS: BP 105/65
[2020-08-21 10:17] LABS: BILIRUBIN,URINE NEGATIVE (NEGATIVE); CLARITY,URINE SL CLOUDY; COLOR,URINE YELLOW; GLUCOSE, URINE (UA) NEGATIVE (NEGATIVE); KETONES,URINE NEGATIVE (NEGATIVE); LEUKOCYTE ESTERASE ,URINE NEGATIVE (NEGATIVE); NITRITE,URINE NEGATIVE (NEGATIVE); PROTEIN,URINE 2+ (NEGATIVE)
[2020-08-21 10:26] LABS: AMORPHOUS SEDIMENT,UR MOD AMOR URATES /LPF; BACTERIA,URINE NEGATIVE /HPF; RBC,URINE 25-50 /HPF
[2020-08-21] MEDS: VANCOMYCIN 1 GM/NS 250 ML IVPB IV SCH ×4 (10:57→21:13)
[2020-08-21] MEDS ORDERED: IBUPROFEN 600 MG (MOTRIN) TAB PO PRN (11:15)
--- NOTE | 2020-08-21 11:37 | Diagnostic Imaging Report ---
EXAM: Portable erect AP chest at 10:30 INDICATION: Respiratory distress The heart size is at the upper limits of normal but similar to the prior exam of 08/20/2020. The alveolar/interstitial pulmonary infiltrates involving both lungs seen previously are again evident and, if anything, perhaps slightly greater than on the prior exam. There is still no significant pleural effusion identified. The mediastinum is not widened. The osseous structures are intact. Supportive tubes and lines seem to be in similar positions to the prior exam. IMPRESSION: The appearance of the chest has worsened somewhat since the prior study as there does seem to be slightly greater involvement of both lungs by pneumonia/atelectasis. Dictated by: Dictated on workstation # [id number]
--- NOTE | 2020-08-21 12:23 | NUR ---
t.f increased to 35ml/hr.
--- NOTE | 2020-08-21 14:00 | NUR ---
During care rounds, skin issues noted. Gluteal fold, MASD. pt has flexiseal. area cleansed, butt paste applied. unavoidable MDRPU's noted to bilat cheeks, chin, mouth/lip, nose/outer septum; unable to assess at this time, as patient is prone facing. Nursing and RT have placed newer, soft mast for ETtube for decrease s/s of MDRPU's. Patient to be turned supine in early am, wounds to be assessed, cleansed, and dressed at that time. Will con't to monitor.
[2020-08-21 15:13] VITALS: BP 108/64
--- NOTE | 2020-08-21 15:31 | NUR ---
During care rounds, it was noted that is currently receiving Pulmocare at 35ml/hr with 25ml free water flushes q4h. Would recommend increases of 10ml q12h as tolerated, toward goal rate of 45ml/hr. Will continue to follow and reassess as pt needs, intake, and status change. Leann Mccall, MS RD LD [phone] cell
[2020-08-21] MEDS: PIPERACILLIN/TAZOBACTAM (BULK) 4.5 GM in NS (IVPB) 100 ML IV SCH (15:49)
--- NOTE | 2020-08-21 16:23 | NUR ---
tf rate decreased back to 25ml/hr d/t small amt of regurgitation. pt suctioned and oral care done.
[2020-08-21 19:14] VITALS: BP 115/67
[2020-08-21] MEDS: metroNIDAZOLE 500MG/100ML IVPB 100 ML IV SCH (21:13)
[2020-08-21 21:34] VITALS: BP 119/71
[2020-08-22] MEDS: inSUlin ASPART (NovoLOG) 1 UNIT/0.01 ML (CHARGE PER UNIT) SC SCH ×4 (02:22→17:24)
[2020-08-22 02:44] VITALS: BP 119/71
[2020-08-22] MEDS: RT-ALBUTEROL INHALER HFA (VENTOLIN HFA) 18 GM IH SCH ×6 (02:44→21:33)
[2020-08-22] MEDS: PIPERACILLIN/TAZOBACTAM (BULK) 4.5 GM in NS (IVPB) 100 ML IV SCH ×4 (03:09→23:53)
[2020-08-22 03:26] LABS: BASOPHILS % (AUTO) 0 % (0-10); EOSINOPHILS % (AUTO) 0 % (0-10); HEMATOCRIT 31 % (40-54); LYMPHOCYTES # (AUTO) 0.2 10^3/uL (1.0-4.0); LYMPHOCYTES % (AUTO) 4 % (12-44); MEAN CORPUSCULAR HEMOGLOBIN 31 pg (25-34); MEAN CORPUSCULAR HGB CONC 29 g/dL (32-36); MEAN CORPUSCULAR VOLUME 106 fL (80-99); MONOCYTES # (AUTO) 0.1 10^3/uL (0.0-1.0); MONOCYTES % (AUTO) 3 % (0-12); NEUTROPHILS # (AUTO) 4.3 10^3/uL (1.8-7.8); NEUTROPHILS % (AUTO) 90 % (42-75); PLATELET COUNT 135 10^3/uL (130-400); WHITE BLOOD COUNT 4.8 10^3/uL (4.3-11.0)
[2020-08-22] MEDS: 1/2 NS IV SOLUTION 1,000 ML IV SCH ×2 (03:35→08:11)
[2020-08-22] MEDS: NOREPINEPHRINE 4 MG/250 ML 250 ML IV SCH ×2 (03:35→05:17)
[2020-08-22] MEDS: fentaNYL DRIP PRE-MIX 250 ML IV SCH ×4 (03:36→20:09)
[2020-08-22 03:39] LABS: AMYLASE 114 U/L (25-125); CHLORIDE 111 MMOL/L (98-107); POTASSIUM 4.5 MMOL/L (3.6-5.0); SODIUM 143 MMOL/L (135-145)
[2020-08-22 03:40] LABS: CALCIUM 7.3 MG/DL (8.5-10.1); GLUCOSE 159 MG/DL (70-105)
[2020-08-22 03:42] LABS: CARBON DIOXIDE 22 MMOL/L (21-32)
[2020-08-22 03:44] LABS: CREATININE SERUM 1.14 MG/DL (0.60-1.30); GFR ESTIMATED > 60
[2020-08-22 03:45] LABS: BUN/CREATININE RATIO 45
[2020-08-22 03:47] LABS: LIPASE 168 U/L (8-78)
[2020-08-22 03:51] LABS: ABG BASE EXCESS -0.8 MMOL/L (-2.5-2.5); ABG OXYGEN SATURATION 46 % (94-100); ABG PCO2 62 MMHG (35-45); ABG TCO2 27.5 MMOL/L (21.0-31.0)
[2020-08-22 03:58] LABS: ABG PH 7.24 (7.37-7.43); ABG PO2 33 MMHG (79-93); ALLENS TEST POS; INSPIRED O2 90%; VENTILATOR YES
[2020-08-22 03:59] LABS: PATIENT TEMP 36.9
--- NOTE | 2020-08-22 04:47 | Pulmonary Progress Note ---
Subjective Time Seen by a Provider: 04:42 Subjective/Events-last exam Pt is sedated on vent. Sepsis Event Evaluation Height, Weight, BMI Height: 5'9.00" Weight: 243lbs. 0oz. 110.194235ne; 33.00 BMI Method:Stated Focused Exam Lactate Level 08/21/20 09:50: Lactic Acid Level 1.54 Time of Focused Exam: 19:19 Exam Exam Vital Signs Date Time Temp Pulse Resp B/P (MAP) Pulse Ox O2 Delivery O2 Flow Rate FiO2 08/22/20 04:00 93 21 146/74 93 Mechanical Ventilator 90.00 08/22/20 03:00 77 26 149/70 93 Mechanical Ventilator 90.00 08/22/20 02:00 76 27 127/70 94 Mechanical Ventilator 90.00 08/22/20 01:00 76 08/22/20 01:00 76 24 123/68 93 Mechanical Ventilator 90.00 08/22/20 00:00 78 25 125/66 94 Mechanical Ventilator 90.00 08/21/20 23:00 87 25 125/69 94 Mechanical Ventilator 90.00 08/21/20 22:00 93 22 133/71 95 Mechanical Ventilator 90.00 08/21/20 21:34 90 27 96 90 08/21/20 21:22 83 118/68 08/21/20 21:22 86 118/68 08/21/20 21:00 84 22 138/70 94 Mechanical Ventilator 90.00 08/21/20 21:00 95 Mechanical Ventilator 100 08/21/20 20:00 85 25 120/66 94 Mechanical Ventilator 90.00 08/21/20 19:27 36.8 08/21/20 19:14 87 30 94 90 08/21/20 19:00 88 08/21/20 19:00 89 27 119/70 94 Mechanical Ventilator 90.00 08/21/20 18:00 98 20 120/64 94 Mechanical Ventilator 100.00 08/21/20 17:00 92 21 124/71 92 Mechanical Ventilator 100.00 08/21/20 16:00 96 26 115/63 92 Mechanical Ventilator 100.00 08/21/20 15:56 37.2 08/21/20 15:13 93 28 94 90 08/21/20 15:00 92 22 111/64 94 Mechanical Ventilator 100.00 08/21/20 14:00 96 27 107/63 97 Mechanical Ventilator 100.00 08/21/20 13:58 111 105/65 08/21/20 13:58 111 105/65 08/21/20 13:57 37.6 08/21/20 13:00 99 19 108/62 96 Mechanical Ventilator 100.00 08/21/20 12:47 101 08/21/20 12:14 37.8 08/21/20 12:00 103 25 108/61 98 Mechanical Ventilator 100.00 08/21/20 11:01 38.4 08/21/20 11:00 112 12 110/62 95 Mechanical Ventilator 100.00 08/21/20 10:07 111 32 95 90 08/21/20 10:05 Mechanical Ventilator 90.00 08/21/20 10:00 109 17 98/61 96 Mechanical Ventilator 100.00 08/21/20 09:44 38.3 08/21/20 09:00 116 15 96/66 91 Mechanical Ventilator 100.00 08/21/20 09:00 92 Mechanical Ventilator 100 08/21/20 08:46 Mechanical Ventilator 100.00 08/21/20 08:30 38.4 08/21/20 08:24 38.4 08/21/20 08:00 118 20 120/69 90 Mechanical Ventilator 80.00 08/21/20 07:35 38.1 Mechanical Ventilator 80.00 08/21/20 07:32 108 147/70 08/21/20 07:32 108 147/70 08/21/20 07:07 108 32 99 80 08/21/20 07:00 108 20 150/84 94 Mechanical Ventilator 80.00 08/21/20 06:34 107 08/21/20 06:15 Mechanical Ventilator 80.00 08/21/20 06:00 101 19 149/70 93 Mechanical Ventilator 70.00 08/21/20 05:00 94 28 154/81 90 Mechanical Ventilator 70.00 I & O 08/22/20 07:00 Intake Total 1825 ml Output Total 1375 ml Balance 450 ml Height & Weight Height: 5'9.00" Weight: 243lbs. 0oz. 110.291663yx; 33.00 BMI Method:Stated General Appearance: No Apparent Distress, Obese, Other (intubated and sedated) HEENT: PERRL/EOMI, Pharynx Normal Neck: Normal Inspection, Supple Respiratory: No Respiratory Distress, Other (coarse breath sounds bilaterally, intubated and mechanically ventilated) Cardiovascular: Regular Rate, Rhythm, No Murmur Capillary Refill: Less Than 3 Seconds Peripheral Pulses: 2+ Radial Pulses (R), 2+ Radial Pulses (L) Gastrointestinal: normal bowel sounds, non tender, soft Extremity: Normal Inspection, Non Tender, Pedal Edema Neurologic/Psychiatric: Other (sedated) Skin: Normal Color, Warm/Dry Results Lab Laboratory Tests 08/21/20 02:50 08/22/20 03:02 Assessment/Plan Assessment/Plan Acute respiratory failure with ARDS secondary to COVID -Currently on vent with 18 PEEP -Add versed titrate Propofol to D/C as tolerated -Fentanyl - Continue to Prone x 16hours per day -DDIMER 13.98 --Lovenox 1mg/kg Q12 bacteremia -Vancomycin -- Will d/c on Tuesday after 14 days Acute kidney injury superimposed on chronic kidney disease Blood cultures positive for Staph hominus and Staph epidermidis, methicillin resistant TTE showed no evidence of endocarditis Continue Vancomycin, flagyl, and zosyn Decadron s/p Remdesivir s/p 1 unit convalescent plasma T2DM Steroid-induced hyperglycemia Levemir SSI HTN Hold home meds HLD PAD GERD DVT/GI Prophylaxis: Lovenox-- therapeutic dosing -Protonix Attempted to call family to give medical update however no answer at either number listed on chart. DRISS JOSHI DO Aug 22, 2020 04:47
[2020-08-22] MEDS: MAGNESIUM 1 GM/100 ML IVPB 100 ML IV SCH (05:17)
[2020-08-22] MEDS: POTASSIUM CL 10MEQ/50ML IVPB 50 ML IV SCH (05:17)
--- NOTE | 2020-08-22 08:05 | NUR ---
TUBE FEED ASPIRATION. DR JOSHI NOTIFIED, HOLD TF
[2020-08-22] MEDS: ACETAMINOPHEN 500 MG TAB (TYLENOL) PO PRN (08:15)
[2020-08-22] MEDS: VANCOMYCIN 1 GM/NS 250 ML IVPB IV SCH ×4 (08:15→20:12)
[2020-08-22] MEDS: metroNIDAZOLE 500MG/100ML IVPB 100 ML IV SCH (08:15)
[2020-08-22] MEDS: ENOXAPARIN 100 MG/1 ML (LOVENOX) SYR SC SCH ×2 (08:16→20:12)
[2020-08-22] MEDS: ARTIFICIAL TEARS OINT (LACRI-LUBE) 3.5 GM TUBE OU SCH ×2 (08:17→20:12)
[2020-08-22] MEDS: PANTOPRAZOLE 40 MG (PROTONIX) VIAL IV SCH (08:17)
[2020-08-22] MEDS: METOCLOPRAMIDE INJ 10 MG/2 ML (REGLAN) IVP SCH ×2 (08:17→20:12)
--- NOTE | 2020-08-22 08:30 | NUR ---
patient in supine position. mutliple, unavoidable MDRPI's noted to face. 2.0cm x 5.0cm x unstageable blackened, hardened scab with induration to periwound of lowerchin. area cleansed, dried. betadine applied to periwound and scab surface. Patient to be placed prone today, enc. use of allevyn chin pad to protect scabbed wound at this time. unstageable pressure wound to cheeks bilaterally, blackened, scabbed. betadine applied to all visible scabbed areas. left cheek periwound blistered, cleansed, dried. allevyn foam patch applied to blistered area. 0.5cmx 1.0cm x 0.0cm scabbed area to bridge of nose. as area is cleansed, scab peels off, healed skin underneath. betadine applied to area, enc. use of allevyn to nose bridge when proning today. dry, scaly patches noted to knees and elbows. barrier cream applied to these areas as well. will con't to monitor.
[2020-08-22] MEDS: LACTATED RINGERS 1,000 ML IV SCH (09:29)
[2020-08-22] MEDS: LEVOFLOXACIN 750 MG/150 ML IV 150 ML IV SCH (09:29)
--- NOTE | 2020-08-22 10:19 | Diagnostic Imaging Report ---
INDICATION: Pancreatitis. TECHNIQUE: Multiple real-time espinoza scale sonographic images of the abdomen. CORRELATION STUDY: None. FINDINGS: LIVER: Liver is mildly enlarged, 19.7 cm. Normal echotexture within the visualized portions of the liver. There is normal, hepatopedal direction of flow within the main portal vein. GALLBLADDER: No definitive shadowing gallstones. There is question of small amount of pericholecystic fluid. Borderline gallbladder wall thickening at 3 mm. COMMON BILE DUCT: Largely obscured. PANCREAS: Largely obscured. SPLEEN: Enlarged at 15 x 7.5 x 7.5 cm. ABDOMINAL AORTA: Obscured. INFERIOR VENA CAVA: Limited in visualization. RIGHT KIDNEY: 10.5 x 5.2 x 6.4 cm. Unremarkable. LEFT KIDNEY: 11.7 x 6.3 x 6.4 cm. Unremarkable. OTHER: None. IMPRESSION: 1. Overall limited abdominal ultrasound evaluation owing to patient being currently on mechanical ventilation. 2. Question of small amount of pericholecystic fluid and borderline gallbladder wall thickening. No definitive shadowing gallstones. Biliary ducts cannot be definitively identified. 3. Borderline hepatomegaly. 4. Splenomegaly. Dictated by: Dictated on workstation # [id number]
--- NOTE | 2020-08-22 10:34 | Diagnostic Imaging Report ---
Portable erect AP chest at 855 hours. INDICATION: Respiratory distress. FINDINGS: The appearance of the chest has worsened since the prior exam of 08/21/2020 as there has been increase in the density in the periphery of left midlung. This does suggest greater involvement of this portion lung by pneumonia/atelectasis. The other alveolar/interstitial pulmonary infiltrates involving the left lung base and the right lung are again evident and not significantly changed. The lung apices remain relatively clear. The heart is stable in size. The mediastinum is not widened. The osseous structures are intact. The supportive tubes and lines seem to be in good position. IMPRESSION: The appearance of the chest has worsened since the prior study as there is greater involvement of the left mid lung by pneumonia/atelectasis. A follow-up study would be recommended for continued evaluation. Dictated by: Dictated on workstation # [id number]
[2020-08-22 10:43] VITALS: BP 109/77
[2020-08-22 14:36] VITALS: BP 119/65
--- NOTE | 2020-08-22 15:00 | NUR ---
Note pt is currently intubated/sedated. Note TF is currently on hold d/t aspiration of TF. Will continue to follow and reassess as pt needs, intake, and status change. Leann Mccall MS RD LD [phone] cell
[2020-08-22 18:16] VITALS: BP 125/73
[2020-08-22 21:33] VITALS: BP 138/72
[2020-08-23] MEDS: inSUlin ASPART (NovoLOG) 1 UNIT/0.01 ML (CHARGE PER UNIT) SC SCH ×4 (00:28→17:10)
[2020-08-23] MEDS: fentaNYL DRIP PRE-MIX 250 ML IV SCH ×4 (02:01→20:14)
[2020-08-23 02:23] LABS: ABG BASE EXCESS -3.2 MMOL/L (-2.5-2.5); ABG OXYGEN SATURATION 98 % (94-100); ABG PCO2 52 MMHG (35-45); ABG PO2 235 MMHG (79-93); ABG TCO2 24.6 MMOL/L (21.0-31.0)
[2020-08-23 02:24] LABS: ALLENS TEST POSITIVE; INSPIRED O2 100; PATIENT TEMP 36.1; VENTILATOR YES
[2020-08-23 02:25] LABS: ABG PH 7.26 (7.37-7.43)
[2020-08-23 02:28] LABS: BASOPHILS % (AUTO) 0 % (0-10); EOSINOPHILS % (AUTO) 0 % (0-10); HEMATOCRIT 30 % (40-54); HEMOGLOBIN 8.8 g/dL (13.3-17.7); LYMPHOCYTES # (AUTO) 0.2 10^3/uL (1.0-4.0); LYMPHOCYTES % (AUTO) 4 % (12-44); MEAN CORPUSCULAR HEMOGLOBIN 31 pg (25-34); MEAN CORPUSCULAR HGB CONC 29 g/dL (32-36); MEAN CORPUSCULAR VOLUME 106 fL (80-99); MEAN PLATELET VOLUME 11.9 fL (9.0-12.2); MONOCYTES # (AUTO) 0.2 10^3/uL (0.0-1.0); MONOCYTES % (AUTO) 3 % (0-12); NEUTROPHILS # (AUTO) 5.2 10^3/uL (1.8-7.8); NEUTROPHILS % (AUTO) 93 % (42-75); PLATELET COUNT 135 10^3/uL (130-400); WHITE BLOOD COUNT 5.6 10^3/uL (4.3-11.0)
[2020-08-23] MEDS: RT-ALBUTEROL INHALER HFA (VENTOLIN HFA) 18 GM IH SCH ×6 (02:33→20:46)
[2020-08-23 02:34] VITALS: BP 124/72
[2020-08-23 02:40] LABS: CALCIUM 6.6 MG/DL (8.5-10.1)
[2020-08-23 02:44] LABS: PHOSPHORUS 5.7 MG/DL (2.3-4.7)
[2020-08-23 03:04] LABS: CREATININE SERUM 1.3 MG/DL (0.60-1.30); MAGNESIUM 3.1 MG/DL (1.6-2.4)
[2020-08-23] MEDS: POTASSIUM CL 10MEQ/50ML IVPB 50 ML IV SCH (06:46)
[2020-08-23] MEDS: MAGNESIUM 1 GM/100 ML IVPB 100 ML IV SCH (06:46)
[2020-08-23 07:08] VITALS: BP 124/71
[2020-08-23] MEDS: PANTOPRAZOLE 40 MG (PROTONIX) VIAL IV SCH (08:17)
[2020-08-23] MEDS: PIPERACILLIN/TAZOBACTAM (BULK) 4.5 GM in NS (IVPB) 100 ML IV SCH ×2 (08:17→16:07)
[2020-08-23] MEDS: VANCOMYCIN 1 GM/NS 250 ML IVPB IV SCH ×4 (08:17→20:17)
[2020-08-23] MEDS: METOCLOPRAMIDE INJ 10 MG/2 ML (REGLAN) IVP SCH ×2 (08:17→20:17)
[2020-08-23] MEDS: LEVOFLOXACIN 750 MG/150 ML IV 150 ML IV SCH (08:18)
[2020-08-23] MEDS: ENOXAPARIN 100 MG/1 ML (LOVENOX) SYR SC SCH ×2 (08:18→20:17)
[2020-08-23] MEDS: ARTIFICIAL TEARS OINT (LACRI-LUBE) 3.5 GM TUBE OU SCH ×2 (08:25→20:17)
--- NOTE | 2020-08-23 10:13 | Progress Note - Hospitalist ---
Subjective HPI/CC On Admission Date Seen by Provider: Aug 23, 2020 Time Seen by Provider: 08:00 Cal Ray Jr is a 60-year-old male with past medical history of hypertension, hyperlipidemia, peripheral arterial disease, GERD, prediabetes, who presented with fever and shortness of breath. At the time of my examination he is intubat ed and sedated. Subjective/Events-last exam Patient remains intubated and sedated. Discussed care with nursing staff. Labs are all reviewed, vent settings are reviewed patient remains fairly stable currently with a slight decrease in the FiO2 to 90%-prognosis remains very guar ded Review of Systems Neurological: Other (Sedated) Focused Exam Lactate Level 08/21/20 09:50: Lactic Acid Level 1.54 Time of Focused Exam: 19:19 Objective Exam Vital Signs Vital Signs Date Time Temp Pulse Resp B/P (MAP) Pulse Ox O2 Delivery O2 Flow Rate FiO2 08/23/20 09:00 95 Mechanical Ventilator 80 08/23/20 09:00 74 25 130/72 80.00 08/23/20 07:16 35.3 Capillary Refill : Less Than 3 Seconds General Appearance: Obese HEENT: Other (Dried blood around the nares) Neck: Limited Range of Motion Respiratory: Lungs Clear Cardiovascular: Regular Rate, Rhythm, No Gallop Gastrointestinal: Soft, Distended Extremity: Other (Anasarca) Neurologic/Psychiatric: Other (Sedated) Skin: Pallor Results/Procedures Lab Laboratory Tests 08/23/20 02:05 Patient resulted labs reviewed. Imaging: Reviewed Imaging Report Assessment/Plan Assessment and Plan Assess & Plan/Chief Complaint Acute respiratory failure with ARDS secondary to COVID -Currently on vent with PEEP of 18 FiO2 of 90% tidal volume of 460 and respiratory rate of 30-ABG reflects permissive hypercapnia Prognosis is guarded bacteremia -Vancomycin -- Will d/c on Tuesday after 14 days Acute kidney injury superimposed on chronic kidney disease Blood cultures positive for Staph hominus and Staph epidermidis, methicillin resistant TTE showed no evidence of endocarditis Continue Vancomycin, flagyl, and zosyn Decadron s/p Remdesivir s/p 1 unit convalescent plasma T2DM Steroid-induced hyperglycemia Levemir Hypertension by history HLD PAD GERD Pseudomonas in the sputum on Levaquin and Zosyn DVT/GI Prophylaxis: Lovenox-- therapeutic dosing -Protonix Diarrhea C. difficile negative Morbid obesity Anemia secondary to critical illness Sonogram shows borderline gallbladder wall thickening-check hepatic panel Clinical Quality Measures DVT/VTE Risk/Contraindication: Risk Factor Score Per Nursin RFS Level Per Nursing on Admit: 4+=Very High ELIZABETH PORTER MD Aug 23, 2020 10:13
[2020-08-23 10:39] LABS: ALBUMIN 2.1 GM/DL (3.2-4.5); POTASSIUM 5.4 MMOL/L (3.6-5.0)
[2020-08-23 10:40] LABS: CALCIUM 6.7 MG/DL (8.5-10.1)
[2020-08-23 10:41] LABS: TOTAL PROTEIN 4.7 GM/DL (6.4-8.2)
[2020-08-23 10:43] LABS: BILIRUBIN,TOTAL 0.7 MG/DL (0.1-1.0)
[2020-08-23 10:45] LABS: CREATININE SERUM 1.35 MG/DL (0.60-1.30)
--- NOTE | 2020-08-23 11:09 | Diagnostic Imaging Report ---
INDICATION: COVID+ patient COMPARISON: 08/22/2020 FINDINGS: There is severe 5 lobed infiltrates and is similar on the left but likely at least mildly progressed on the right. ET tube mid trachea. OG catheter goes through the esophagus beyond the distal 3rd of the esophagus. It cannot be visualized but may be obscured on a technical basis. A right IJ is at the upper SVC. Impression: Extensive 5 lobe infiltrates on the right having mildly progressed. I cannot visualize the OG catheter beyond the distal 3rd of the thoracic esophagus that may be its termination or distally obscured on a technical basis. Report was faxed to [facility] In[facility] Control by aixa at 11;06am. Dictated by: Dictated on workstation # [id number]
[2020-08-23 11:40] VITALS: BP 135/67
[2020-08-23] MEDS: LACTATED RINGERS 1,000 ML IV SCH ×2 (12:11→20:18)
[2020-08-23 15:43] VITALS: BP 102/59
[2020-08-23 18:16] VITALS: BP 123/65
[2020-08-23 20:46] VITALS: BP 135/68
--- NOTE | 2020-08-23 21:19 | NUR ---
PT ASSESSMENT COMPLETED AT THIS TIME. PT IS IN PRONE POSITION. INTUBATED C #8 ETT, APPEARS TO BE 24 AT GUM LINE. VENTILATOR SETTINGS AC MODE 460 TV/18 PEEP/25 RR/50% FIO2. POSTERIOR LUNG GASTELUM ARE VERY COARSE THROUGHOUT. PT IS NSR RATES IN 70-90'S. PT DOES HAVE FALL CATHETER C LIGHT SEDIMENT, YELLOW URINE. FLEXI SEAL IN PLACE C DARK BROWN LIQUID STOOL. OG TO LIWS. UNABLE TO AUSCULTATE FOR PLACEMENT CONFIRMATION DUE TO PRONE POSITION. APPEARS TO HAVE BILE IN SUCTION CANISTER. PLEASE SEE FULL ASSESSMENT FOR FURTHER DETAILS. Addendum: 08/23/20 at 2123 by DAVID HURTADO RN Amended: Links added.
[2020-08-24] MEDS: inSUlin ASPART (NovoLOG) 1 UNIT/0.01 ML (CHARGE PER UNIT) SC SCH ×5 (01:15→23:54)
[2020-08-24] MEDS: PIPERACILLIN/TAZOBACTAM (BULK) 4.5 GM in NS (IVPB) 100 ML IV SCH ×3 (01:15→17:08)
[2020-08-24] MEDS: fentaNYL DRIP PRE-MIX 250 ML IV SCH ×4 (01:30→20:45)
[2020-08-24 01:52] VITALS: BP 144/72
[2020-08-24] MEDS: RT-ALBUTEROL INHALER HFA (VENTOLIN HFA) 18 GM IH SCH ×6 (01:52→22:12)
[2020-08-24 03:04] LABS: BASOPHILS % (AUTO) 0 % (0-10); EOSINOPHILS # (AUTO) 0.1 10^3/uL (0.0-0.3); EOSINOPHILS % (AUTO) 1 % (0-10); HEMATOCRIT 32 % (40-54); HEMOGLOBIN 9.2 g/dL (13.3-17.7); LYMPHOCYTES # (AUTO) 0.2 10^3/uL (1.0-4.0); LYMPHOCYTES % (AUTO) 5 % (12-44); MEAN CORPUSCULAR HEMOGLOBIN 31 pg (25-34); MEAN CORPUSCULAR HGB CONC 29 g/dL (32-36); MEAN CORPUSCULAR VOLUME 106 fL (80-99); MEAN PLATELET VOLUME 12.2 fL (9.0-12.2); MONOCYTES # (AUTO) 0.1 10^3/uL (0.0-1.0); MONOCYTES % (AUTO) 2 % (0-12); NEUTROPHILS # (AUTO) 4.6 10^3/uL (1.8-7.8); NEUTROPHILS % (AUTO) 90 % (42-75); PLATELET COUNT 127 10^3/uL (130-400)
[2020-08-24 03:12] LABS: ABG BASE EXCESS -3.4 MMOL/L (-2.5-2.5); ABG OXYGEN SATURATION 93 % (94-100); ABG PCO2 50 MMHG (35-45); ABG PO2 75 MMHG (79-93); ABG TCO2 24.2 MMOL/L (21.0-31.0)
[2020-08-24 03:13] LABS: ALLENS TEST POSITIVE; INSPIRED O2 50; VENTILATOR YES
[2020-08-24 03:14] LABS: ABG PH 7.27 (7.37-7.43); PATIENT TEMP 36.3
[2020-08-24 03:18] LABS: ALBUMIN 2.1 GM/DL (3.2-4.5); POTASSIUM 4.1 MMOL/L (3.6-5.0)
[2020-08-24 03:19] LABS: CALCIUM 6.9 MG/DL (8.5-10.1)
[2020-08-24 03:20] LABS: TOTAL PROTEIN 4.8 GM/DL (6.4-8.2)
[2020-08-24 03:22] LABS: BILIRUBIN,TOTAL 0.7 MG/DL (0.1-1.0)
[2020-08-24 03:23] LABS: PHOSPHORUS 3.9 MG/DL (2.3-4.7)
[2020-08-24 03:24] LABS: CREATININE SERUM 1.32 MG/DL (0.60-1.30)
[2020-08-24 03:26] LABS: MAGNESIUM 3.2 MG/DL (1.6-2.4)
[2020-08-24] MEDS: MAGNESIUM 1 GM/100 ML IVPB 100 ML IV SCH (06:31)
[2020-08-24] MEDS: POTASSIUM CL 10MEQ/50ML IVPB 50 ML IV SCH (06:31)
[2020-08-24 07:35] VITALS: BP 161/75
--- NOTE | 2020-08-24 08:14 | Progress Note - Hospitalist ---
Subjective HPI/CC On Admission Date Seen by Provider: Aug 24, 2020 Time Seen by Provider: 07:00 Cal Ray Jr is a 60-year-old male with past medical history of hypertension, hyperlipidemia, peripheral arterial disease, GERD, prediabetes, who presented with fever and shortness of breath. At the time of my examination he is intubat ed and sedated. Subjective/Events-last exam Patient remains intubated on Zosyn vancomycin and Levaquin. Sputum is thick and purulent. He is day #14 ICU I's and O's are about equal. He is down to an FiO2 of 50% with 91% sats on 18 of PEEP . Blood gas reflects permissive hypercapnia with respiratory acidosis Review of Systems Neurological: Other (Intubated and sedated) Focused Exam Lactate Level 08/21/20 09:50: Lactic Acid Level 1.54 Time of Focused Exam: 19:19 Objective Exam Vital Signs Vital Signs Date Time Temp Pulse Resp B/P (MAP) Pulse Ox O2 Delivery O2 Flow Rate FiO2 08/24/20 07:35 101 32 95 60 08/24/20 07:11 36.3 08/24/20 06:00 164/81 Mechanical Ventilator 50.00 Capillary Refill : Less Than 3 Seconds General Appearance: Obese HEENT: Other (Blood around his nares) Neck: Limited Range of Motion Respiratory: Chest Non Tender, Lungs Clear, Normal Breath Sounds, No Accessory Muscle Use Cardiovascular: Regular Rate, Rhythm, No Gallop, No Murmur Gastrointestinal: Normal Bowel Sounds, Distended Extremity: Pedal Edema Results/Procedures Lab Laboratory Tests 08/24/20 02:55 Patient resulted labs reviewed. Imaging: Reviewed Imaging Films, Reviewed Imaging Report Assessment/Plan Assessment and Plan Assess & Plan/Chief Complaint Acute respiratory failure with ARDS secondary to COVID -Currently on vent with PEEP of 18 FiO2 of 50% tidal volume of 460 and respiratory rate of 30-ABG reflects permissive hypercapnia-chest x-ray looks marginally improved to me today bacteremia -Vancomycin -- Will d/c on Tuesday after 14 days Acute kidney injury superimposed on chronic kidney disease Blood cultures positive for Staph hominus and Staph epidermidis, methicillin resistant TTE showed no evidence of endocarditis Continue Vancomycin, flagyl, and zosyn Decadron s/p Remdesivir s/p 1 unit convalescent plasma T2DM Steroid-induced hyperglycemia Levemir Hypertension by history HLD PAD GERD Pseudomonas in the sputum on Levaquin and Zosyn DVT/GI Prophylaxis: Lovenox-- therapeutic dosing -Protonix Diarrhea C. difficile negative Morbid obesity Anemia secondary to critical illness Sonogram shows borderline gallbladder wall thickening-liver enzymes are normal Protein calorie malnutrition with tube feedings being held secondary to reflux and aspiration. Tomorrow would consider nutrition consult for bolus feedings while supine. Prognosis remains guarded Clinical Quality Measures DVT/VTE Risk/Contraindication: Risk Factor Score Per Nursin RFS Level Per Nursing on Admit: 4+=Very High ELIZABETH PORTER MD Aug 24, 2020 08:13
[2020-08-24] MEDS ORDERED: 1/2 NS W/KCL 20 MEQ/L 1,000 ML IV SCH (08:30)
[2020-08-24] MEDS: PANTOPRAZOLE 40 MG (PROTONIX) VIAL IV SCH (08:45)
[2020-08-24] MEDS: METOCLOPRAMIDE INJ 10 MG/2 ML (REGLAN) IVP SCH ×2 (08:45→20:58)
[2020-08-24] MEDS: VANCOMYCIN 1 GM/NS 250 ML IVPB IV SCH ×4 (08:45→20:58)
[2020-08-24] MEDS: ENOXAPARIN 100 MG/1 ML (LOVENOX) SYR SC SCH ×2 (08:45→20:58)
[2020-08-24] MEDS: MIDAZOLAM DRIP PRE-MIX 100 ML IV SCH ×2 (08:47→20:46)
[2020-08-24] MEDS: ARTIFICIAL TEARS OINT (LACRI-LUBE) 3.5 GM TUBE OU SCH ×2 (08:48→20:58)
[2020-08-24] MEDS: LEVOFLOXACIN 750 MG/150 ML IV 150 ML IV SCH (08:49)
--- NOTE | 2020-08-24 09:42 | Diagnostic Imaging Report ---
CHEST 1 VIEW, AP/PA ONLY Indication: COVID positive, intubation. Comparison: 08/23/2020 Findings: Diffuse bilateral pulmonary consolidations may have slightly improved but persist. No pleural effusion or pneumothorax. Stable ET and enteric tubes. Stable right IJ central venous catheter. Impression: 1. Potential mild improvement in pulmonary opacities, but otherwise no change. Dictated by: Dictated on workstation # [id number]
[2020-08-24 11:15] VITALS: BP 117/62
[2020-08-24 15:35] VITALS: BP 114/61
[2020-08-24 18:55] VITALS: BP 94/57
[2020-08-24 22:27] VITALS: BP 94/57
[2020-08-24] MEDS ORDERED: DEXTROSE 50% 50 ML (IMS) SYR ONE (23:49)
[2020-08-25] MEDS: PIPERACILLIN/TAZOBACTAM (BULK) 4.5 GM in NS (IVPB) 100 ML IV SCH ×4 (00:07→23:38)
[2020-08-25] MEDS: fentaNYL DRIP PRE-MIX 250 ML IV SCH ×3 (01:23→22:04)
[2020-08-25 01:25] VITALS: BP 127/46
[2020-08-25] MEDS: RT-ALBUTEROL INHALER HFA (VENTOLIN HFA) 18 GM IH SCH ×6 (01:25→21:35)
[2020-08-25 02:34] LABS: BASOPHILS % (AUTO) 0 % (0-10); EOSINOPHILS # (AUTO) 0.1 10^3/uL (0.0-0.3); EOSINOPHILS % (AUTO) 2 % (0-10); HEMATOCRIT 32 % (40-54); HEMOGLOBIN 9.1 g/dL (13.3-17.7); LYMPHOCYTES # (AUTO) 0.2 10^3/uL (1.0-4.0); LYMPHOCYTES % (AUTO) 6 % (12-44); MEAN CORPUSCULAR HEMOGLOBIN 30 pg (25-34); MEAN CORPUSCULAR HGB CONC 29 g/dL (32-36); MEAN CORPUSCULAR VOLUME 106 fL (80-99); MEAN PLATELET VOLUME 12.4 fL (9.0-12.2); MONOCYTES # (AUTO) 0.1 10^3/uL (0.0-1.0); MONOCYTES % (AUTO) 3 % (0-12); NEUTROPHILS # (AUTO) 2.9 10^3/uL (1.8-7.8); NEUTROPHILS % (AUTO) 87 % (42-75); PLATELET COUNT 94 10^3/uL (130-400); WHITE BLOOD COUNT 3.4 10^3/uL (4.3-11.0)
[2020-08-25 02:45] LABS: POTASSIUM 4.2 MMOL/L (3.6-5.0)
[2020-08-25 02:47] LABS: CALCIUM 6.5 MG/DL (8.5-10.1)
[2020-08-25 02:51] LABS: CREATININE SERUM 1.64 MG/DL (0.60-1.30)
[2020-08-25 02:53] LABS: MAGNESIUM 3.1 MG/DL (1.6-2.4)
[2020-08-25] MEDS: MAGNESIUM 1 GM/100 ML IVPB 100 ML IV SCH (03:36)
[2020-08-25] MEDS: POTASSIUM CL 10MEQ/50ML IVPB 50 ML IV SCH (03:36)
[2020-08-25] MEDS: inSUlin ASPART (NovoLOG) 1 UNIT/0.01 ML (CHARGE PER UNIT) SC SCH ×4 (03:37→23:37)
--- NOTE | 2020-08-25 04:51 | Pulmonary Progress Note ---
Subjective Time Seen by a Provider: 04:45 Subjective/Events-last exam Pt is sedated on vent. Sepsis Event Evaluation Height, Weight, BMI Height: 5'9.00" Weight: 243lbs. 0oz. 110.408270jz; 33.00 BMI Method:Stated Focused Exam Time of Focused Exam: 19:19 Exam Exam Vital Signs Date Time Temp Pulse Resp B/P (MAP) Pulse Ox O2 Delivery O2 Flow Rate FiO2 08/25/20 04:00 100 25 113/48 94 Mechanical Ventilator 100.00 08/25/20 03:31 35.8 08/25/20 03:25 Mechanical Ventilator 100.00 08/25/20 03:00 93 24 116/64 92 Mechanical Ventilator 80.00 08/25/20 02:00 92 25 114/92 93 Mechanical Ventilator 80.00 08/25/20 01:25 90 25 94 80 08/25/20 01:00 96 26 119/69 95 Mechanical Ventilator 80.00 08/25/20 01:00 96 08/25/20 00:00 36.0 08/25/20 00:00 92 24 116/62 92 Mechanical Ventilator 80.00 08/24/20 23:55 36.3 25 Mechanical Ventilator 80.00 08/24/20 23:00 94 24 112/52 89 Mechanical Ventilator 80.00 08/24/20 22:27 90 26 93 80 08/24/20 22:18 93 113/60 08/24/20 22:18 93 113/60 08/24/20 22:00 92 18 106/59 92 Mechanical Ventilator 80.00 08/24/20 21:00 92 24 107/59 96 Mechanical Ventilator 80.00 08/24/20 20:46 90 25 119/70 08/24/20 20:30 Mechanical Ventilator 80.00 08/24/20 20:25 91 Mechanical Ventilator 70 08/24/20 20:00 36.3 Mechanical Ventilator 70.00 08/24/20 20:00 96 18 125/53 90 Mechanical Ventilator 70.00 08/24/20 19:00 Mechanical Ventilator 60.00 08/24/20 19:00 90 08/24/20 19:00 90 23 114/60 93 Mechanical Ventilator 60.00 08/24/20 18:55 90 26 93 60 08/24/20 18:09 36.2 08/24/20 18:00 93 28 119/62 88 Mechanical Ventilator 50.00 08/24/20 17:00 96 21 116/61 91 Mechanical Ventilator 50.00 08/24/20 16:00 92 26 112/64 92 Mechanical Ventilator 50.00 08/24/20 15:35 92 30 91 60 08/24/20 15:00 92 27 113/62 91 Mechanical Ventilator 50.00 08/24/20 14:00 96 24 118/64 93 Mechanical Ventilator 50.00 08/24/20 13:00 93 31 119/66 91 Mechanical Ventilator 50.00 08/24/20 12:26 96 08/24/20 12:00 93 26 112/63 92 Mechanical Ventilator 50.00 08/24/20 11:15 98 29 93 60 08/24/20 11:11 36.6 08/24/20 11:00 103 28 131/68 90 Mechanical Ventilator 50.00 08/24/20 10:48 105 132/72 08/24/20 10:47 106 132/72 08/24/20 10:00 92 20 115/65 96 Mechanical Ventilator 50.00 08/24/20 09:00 95 Mechanical Ventilator 50 08/24/20 09:00 99 17 122/69 96 Mechanical Ventilator 50.00 08/24/20 08:47 100 18 138/69 08/24/20 08:45 100 17 138/69 96 Mechanical Ventilator 50.00 08/24/20 08:30 106 23 156/71 90 Mechanical Ventilator 50.00 08/24/20 08:15 106 19 168/70 93 Mechanical Ventilator 50.00 08/24/20 08:00 110 23 162/81 84 Mechanical Ventilator 50.00 08/24/20 07:45 105 20 166/73 95 Mechanical Ventilator 50.00 08/24/20 07:35 101 32 95 60 08/24/20 07:30 103 22 161/75 87 Mechanical Ventilator 50.00 08/24/20 07:15 153/69 08/24/20 07:11 36.3 08/24/20 07:00 106 08/24/20 07:00 97 15 140/69 97 Mechanical Ventilator 50.00 08/24/20 06:00 99 18 164/81 91 Mechanical Ventilator 50.00 08/24/20 05:00 90 14 158/73 94 Mechanical Ventilator 50.00 I & O 08/25/20 07:00 Intake Total 2250 ml Output Total 1295 ml Balance 955 ml Height & Weight Height: 5'9.00" Weight: 243lbs. 0oz. 110.841973fx; 33.00 BMI Method:Stated General Appearance: Obese HEENT: Other (Blood around his nares) Neck: Limited Range of Motion Respiratory: Chest Non Tender, Lungs Clear, Normal Breath Sounds, No Accessory Muscle Use Cardiovascular: Regular Rate, Rhythm, No Gallop, No Murmur Capillary Refill: Less Than 3 Seconds Peripheral Pulses: 2+ Radial Pulses (R), 2+ Radial Pulses (L) Gastrointestinal: normal bowel sounds, non tender, soft Extremity: Pedal Edema Neurologic/Psychiatric: Other (Sedated) Skin: Pallor Results Lab Laboratory Tests 08/24/20 02:55 08/25/20 02:25 Assessment/Plan Assessment/Plan Acute respiratory failure with ARDS secondary to COVID -Currently on vent with 18 PEEP -Restart TF at 15cc/hr -Add versed titrate Propofol to D/C as tolerated -Fentanyl -Repeat PCT - Continue to Prone x 16hours per day -DDIMER 13.98 --Lovenox 1mg/kg Q12 PNA with pseudomonus -D/C Levaquin and continue Zosyn -D/C Vancomycin bacteremia- -Vancomycin -- Will d/c now Diarrhea -Now resolved -Flagyl is d/c'd -D/C rectal tube Acute kidney injury superimposed on chronic kidney disease TTE showed no evidence of endocarditis Decadron s/p Remdesivir s/p 1 unit convalescent plasma T2DM Steroid-induced hyperglycemia Levemir SSI HTN Hold home meds HLD PAD GERD DVT/GI Prophylaxis: Lovenox-- therapeutic dosing -Protonix DRISS JOSHI DO Aug 25, 2020 04:50
[2020-08-25] MEDS ORDERED: 1/2 NS IV SOLUTION 1,000 ML IV ONE (05:04)
[2020-08-25] MEDS: 1/2 NS IV SOLUTION 1,000 ML IV SCH ×2 (05:23→23:43)
--- NOTE | 2020-08-25 05:27 | NUR ---
IVF 1/2ns@30cc/hr Flexiseal dc'd per order, pt tolerated /s diff.
--- NOTE | 2020-08-25 06:05 | NUR ---
Pulmocare tube feeding initiated at this time 15cc/hr. 50cc water flush prior to initiation.
[2020-08-25 06:19] VITALS: BP 114/70
--- NOTE | 2020-08-25 07:28 | Diagnostic Imaging Report ---
INDICATION: COVID Pneumonia. COMPARISON: 08/24/2020 FINDINGS: Single frontal radiographic view of the chest was obtained and demonstrates indwelling endotracheal tube with tip below the clavicular heads and above the jason. Gastric tube is seen with tip and side-port in the stomach. Right internal jugular central venous catheter is also again identified likely near the junction of the internal jugular vein and subclavian vein. Lungs continue to show diffuse mixed interstitial and alveolar infiltrates, left greater than right. Overall, aeration has not safely changed. No large effusion or pneumothorax is seen. Cardiac silhouette is heavily obscured. Osseous structures show no adverse interval change. IMPRESSION: 1. Lines and tubes as above. 2. Stable bilateral diffuse infiltrates. Dictated by: Dictated on workstation # [id number]
[2020-08-25] MEDS: METOCLOPRAMIDE INJ 10 MG/2 ML (REGLAN) IVP SCH ×2 (09:31→20:35)
[2020-08-25] MEDS: CALCIUM ACETATE 667 MG CAP (PHOSLO) PO SCH ×3 (09:31→17:48)
[2020-08-25] MEDS: PANTOPRAZOLE 40 MG (PROTONIX) VIAL IV SCH (09:31)
[2020-08-25] MEDS: ENOXAPARIN 100 MG/1 ML (LOVENOX) SYR SC SCH ×2 (09:32→20:35)
[2020-08-25] MEDS: ARTIFICIAL TEARS OINT (LACRI-LUBE) 3.5 GM TUBE OU SCH ×2 (09:32→20:35)
[2020-08-25] MEDS: MIDAZOLAM DRIP PRE-MIX 100 ML IV SCH ×2 (09:37→20:33)
[2020-08-25 10:24] VITALS: BP 104/68
--- NOTE | 2020-08-25 13:00 | NUR ---
Groin rash to left leg and scrotum noted during positioning. area cleansed, butt paste applied to reddened, moist areas. orders rec'd for desenex powder to apply to site.
[2020-08-25 14:13] VITALS: BP 97/60
--- NOTE | 2020-08-25 15:44 | NUR ---
Note pt is having high residuals and diarrhea, per Monse BRYANT. At this time, pt may benefit from having TF on hold until diarrhea resolves. Will continue to follow and reassess as pt needs, intake, and status change. Leann Mccall, MS RD LD [phone] cell
[2020-08-25] MEDS ORDERED: MICONAZOLE 2% POWDER (DESENEX AF) 90 GM TOP PRN (16:30)
[2020-08-25 18:43] VITALS: BP 92/58
[2020-08-25] MEDS ORDERED: LACTATED RINGERS 1,000 ML IV ONE ×2 (19:18→22:15)
[2020-08-25] MEDS ORDERED: LACTATED RINGERS 1,000 ML IV SCH ×2 (19:30→22:30)
[2020-08-25 21:35] VITALS: BP 94/42
--- NOTE | 2020-08-25 22:13 | NUR ---
This customs entry writer spoke to Dr Carlito Tomlinson ICU at this time. Informed that despite 1L LR bolus @ 1930 patient only had 5cc UOP. Order to infuse another 1L LR at this time. Order to report back two hours post bolus.
--- NOTE | 2020-08-26 00:59 | NUR ---
Call to E ICU at this time for follow up on low urine output post 2nd Liter bolus of LR. 20cc urine output post bolus reported to Dr Esteban. No new orders at this time.
[2020-08-26] MEDS: RT-ALBUTEROL INHALER HFA (VENTOLIN HFA) 18 GM IH SCH ×5 (02:18→18:26)
[2020-08-26 02:19] VITALS: BP 94/42
[2020-08-26 02:51] LABS: ABG BASE EXCESS -8.8 MMOL/L (-2.5-2.5); ABG OXYGEN SATURATION 99 % (94-100); ABG PCO2 51 MMHG (35-45); ABG PO2 163 MMHG (79-93); ABG TCO2 20.1 MMOL/L (21.0-31.0)
[2020-08-26 02:51] LABS: BASOPHILS % (AUTO) 0 % (0-10); EOSINOPHILS # (AUTO) 0.1 10^3/uL (0.0-0.3); EOSINOPHILS % (AUTO) 2 % (0-10); HEMATOCRIT 32 % (40-54); HEMOGLOBIN 9.1 g/dL (13.3-17.7); LYMPHOCYTES # (AUTO) 0.3 10^3/uL (1.0-4.0); LYMPHOCYTES % (AUTO) 6 % (12-44); MEAN CORPUSCULAR HEMOGLOBIN 31 pg (25-34); MEAN CORPUSCULAR HGB CONC 29 g/dL (32-36); MEAN CORPUSCULAR VOLUME 108 fL (80-99); MONOCYTES # (AUTO) 0.1 10^3/uL (0.0-1.0); MONOCYTES % (AUTO) 3 % (0-12); NEUTROPHILS # (AUTO) 3.4 10^3/uL (1.8-7.8); NEUTROPHILS % (AUTO) 84 % (42-75); PLATELET COUNT 67 10^3/uL (130-400)
[2020-08-26 02:53] LABS: ABG PH 7.18 (7.37-7.43)
[2020-08-26 02:54] LABS: ALLENS TEST YES-POS; INSPIRED O2 100%; PATIENT TEMP 35.6; VENTILATOR YES
[2020-08-26 03:04] LABS: POTASSIUM 5.3 MMOL/L (3.6-5.0)
[2020-08-26 03:05] LABS: CALCIUM 6.6 MG/DL (8.5-10.1)
[2020-08-26 03:09] LABS: PHOSPHORUS 7.9 MG/DL (2.3-4.7)
[2020-08-26 03:10] LABS: CREATININE SERUM 2.86 MG/DL (0.60-1.30)
[2020-08-26 03:12] LABS: MAGNESIUM 3.1 MG/DL (1.6-2.4)
[2020-08-26] MEDS: MAGNESIUM 1 GM/100 ML IVPB 100 ML IV SCH (03:54)
[2020-08-26] MEDS: POTASSIUM CL 10MEQ/50ML IVPB 50 ML IV SCH (03:54)
[2020-08-26] MEDS: inSUlin ASPART (NovoLOG) 1 UNIT/0.01 ML (CHARGE PER UNIT) SC SCH ×3 (03:55→20:27)
--- NOTE | 2020-08-26 04:09 | Pulmonary Progress Note ---
Subjective Time Seen by a Provider: 04:04 Sepsis Event Evaluation Height, Weight, BMI Height: 5'9.00" Weight: 243lbs. 0oz. 110.422479lm; 33.00 BMI Method:Stated Focused Exam Time of Focused Exam: 19:19 Exam Exam Vital Signs Date Time Temp Pulse Resp B/P (MAP) Pulse Ox O2 Delivery O2 Flow Rate FiO2 08/26/20 02:30 35.6 08/26/20 02:19 101 25 96 100 08/25/20 23:41 36.1 Mechanical Ventilator 100.00 08/25/20 21:35 101 25 96 100 08/25/20 20:40 96 Mechanical Ventilator 100 08/25/20 20:33 101 25 94/50 08/25/20 19:40 86/54 08/25/20 19:36 87/54 08/25/20 19:30 36.7 25 97/65 Mechanical Ventilator 100.00 08/25/20 19:00 109 08/25/20 18:43 109 25 96 100 08/25/20 18:00 56 25 91/48 97 Mechanical Ventilator 85.00 08/25/20 17:00 112 24 95/59 95 Mechanical Ventilator 85.00 08/25/20 16:33 37.0 08/25/20 16:00 113 25 96/57 95 Mechanical Ventilator 85.00 08/25/20 15:00 115 25 94/62 94 Mechanical Ventilator 85.00 08/25/20 14:13 115 26 93 100 08/25/20 14:00 117 24 97/60 93 Mechanical Ventilator 85.00 08/25/20 13:00 116 20 93/55 90 Mechanical Ventilator 85.00 08/25/20 12:49 117 08/25/20 12:00 117 28 79/43 92 Mechanical Ventilator 85.00 08/25/20 11:00 117 24 89 Mechanical Ventilator 85.00 08/25/20 10:24 117 26 92 100 08/25/20 10:00 115 22 106/78 94 Mechanical Ventilator 85.00 08/25/20 09:37 114 22 115/55 08/25/20 09:00 91 Mechanical Ventilator 100 08/25/20 09:00 114 20 116/74 91 Mechanical Ventilator 85.00 08/25/20 08:00 111 25 126/77 92 Mechanical Ventilator 85.00 08/25/20 07:15 Mechanical Ventilator 85.00 08/25/20 07:04 105 24 94 Mechanical Ventilator 80.00 08/25/20 07:00 105 20 117/72 96 Mechanical Ventilator 100.00 08/25/20 06:39 107 08/25/20 06:19 105 26 95 100 08/25/20 06:00 105 20 118/44 91 Mechanical Ventilator 100.00 08/25/20 05:28 Mechanical Ventilator 100.00 08/25/20 05:10 Mechanical Ventilator 85.00 08/25/20 05:00 101 21 107/58 96 Mechanical Ventilator 100.00 I & O 08/26/20 07:00 Intake Total 3470 ml Output Total 150 ml Balance 3320 ml Height & Weight Height: 5'9.00" Weight: 243lbs. 0oz. 110.197270qe; 33.00 BMI Method:Stated General Appearance: Obese HEENT: Other (Blood around his nares) Neck: Limited Range of Motion Respiratory: Chest Non Tender, Lungs Clear, Normal Breath Sounds, No Accessory Muscle Use Cardiovascular: Regular Rate, Rhythm, No Gallop, No Murmur Capillary Refill: Less Than 3 Seconds Peripheral Pulses: 2+ Radial Pulses (R), 2+ Radial Pulses (L) Gastrointestinal: normal bowel sounds, non tender, soft Extremity: Pedal Edema Neurologic/Psychiatric: Other (Sedated) Skin: Pallor Results Lab Laboratory Tests 08/25/20 02:25 08/26/20 02:30 Assessment/Plan Assessment/Plan Acute respiratory failure with ARDS secondary to COVID -Currently on vent with 20 PEEP -EICU managed through the night -Restart TF at 15cc/hr -Add versed titrate Propofol to D/C as tolerated -Fentanyl -Repeat PCT - Continue to Prone x 16hours per day -DDIMER 13.98 --Lovenox 1mg/kg Q12 Acute kidney injury superimposed on chronic -will attempt to transfer for HD -Attempted to call family and they did not answer TTE showed no evidence of endocarditis Decadron s/p Remdesivir s/p 1 unit convalescent plasma Thrombocytopenia/pancytopenia -Check DIC panel -Check HIT -Change Lovenox to angiomax PNA with pseudomonus -D/C Levaquin and continue Zosyn -D/C Vancomycin bacteremia- -Vancomycin -- Will d/c now Diarrhea -Now resolved -Flagyl is d/c'd -D/C rectal tube T2DM Steroid-induced hyperglycemia Levemir SSI HTN Hold home meds HLD PAD GERD DVT/GI Prophylaxis: Lovenox-- therapeutic dosing -Protonix DRISS JOSHI DO Aug 26, 2020 04:09
[2020-08-26] MEDS ORDERED: 1/2 NS IV SOLUTION 1,000 ML IV ONE (04:10)
[2020-08-26] MEDS ORDERED: SODIUM BICARB 8.4% 50 MEQ/50 ML VIAL ONE (04:10)
[2020-08-26] MEDS ORDERED: SODIUM BICARB 8.4% 50 MEQ/50 ML VIAL IV ONE (04:15)
[2020-08-26 04:26] LABS: FIBRIN DEGRADATION PRODUCTS 3.7 UG/ML (0.00-0.49); INR 1.3 (0.8-1.4); PROTHROMBIN TIME PATIENT 16.7 SEC (12.2-14.7)
[2020-08-26] MEDS: SODIUM BICARBONATE 8.4% VIAL 100 MEQ in 1/2 NS IV SOLUTION 1,000 ML IV SCH ×2 (04:29→16:27)
--- NOTE | 2020-08-26 04:30 | NUR ---
Informed Dr Meadows that ETT is at 22@ the lip and was previously 25@ the gum. Dr Meadows viewed am chest x ray. No new orders at this time.
--- NOTE | 2020-08-26 05:00 | NUR ---
Called RT and Dr Meadows to the room, patient oxygen saturation decreased, currently @ 87% on 100% FIO2. Order to give 50mg Rocuronium now.
[2020-08-26] MEDS ORDERED: ROCURONIUM 10 MG/ML 5 ML SYRINGE IV ONE ×2 (05:02→05:15)
[2020-08-26 06:27] VITALS: BP 110/64
--- NOTE | 2020-08-26 06:30 | NUR ---
Patient continues to have oxygen saturation @80-85% on 100% FIO2. Order for stat chest x-ray. Dr Meadows to room to read chest x-ray. ETT advanced 2cm. Now 24@Lip. O2 sat 92%.
[2020-08-26] MEDS: fentaNYL DRIP PRE-MIX 250 ML IV SCH ×2 (06:42→19:15)
--- NOTE | 2020-08-26 06:56 | Diagnostic Imaging Report ---
EXAMINATION: Chest 1 view HISTORY: Worsening hypoxia. Follow-up. COMPARISON: Chest radiograph performed earlier the same date. FINDINGS: There is stable configuration of the endotracheal tube, enteric tube, and right internal jugular central line. Worsening consolidative opacities are seen in the mid and lower right lung with stable consolidative opacities throughout the mid and lower left lung. A component of pleural effusion may be present. No evidence of pneumothorax. The cardiac silhouette is mostly obscured. IMPRESSION: 1. Worsening consolidative opacities in the right lung with stable consolidative opacities throughout the majority of the left lung. These findings likely represent worsening infection and/or edema. Component of pleural effusion may be present. 2. Stable support devices. Dictated by: Dictated on workstation # [id number]
--- NOTE | 2020-08-26 07:32 | Diagnostic Imaging Report ---
EXAMINATION: Chest 1 view HISTORY: COVID positive. Intubated. Follow-up. COMPARISON: Chest radiograph on 08/25/2020. FINDINGS: Stable configuration of the endotracheal tube, enteric tube, and right internal jugular central line. Stable patchy opacities throughout the lungs which appear more consolidative in the left mid and lower lung and right lung base. No large pleural effusion or pneumothorax. The cardiac silhouette is mostly obscured due to the widespread opacities. IMPRESSION: 1. Stable widespread patchy opacities throughout the lungs. 2. Stable support devices. Dictated by: Dictated on workstation # [id number]
[2020-08-26] MEDS: BIVALIRUDIN INJECTION 250 MG in D5W 50 ML IVPB SOLUTION 45 ML IV SCH ×2 (09:15→20:27)
[2020-08-26] MEDS: CISATRACURIUM INJECTION 100 MG in NS (IVPB) 200 ML IV SCH ×2 (09:16→12:51)
[2020-08-26] MEDS: PANTOPRAZOLE 40 MG (PROTONIX) VIAL IV SCH (09:23)
[2020-08-26] MEDS: PIPERACILLIN/TAZOBACTAM (BULK) 4.5 GM in NS (IVPB) 100 ML IV SCH ×2 (09:23→16:27)
[2020-08-26] MEDS: CALCIUM ACETATE 667 MG CAP (PHOSLO) PO SCH ×3 (09:24→20:27)
[2020-08-26] MEDS: METOCLOPRAMIDE INJ 10 MG/2 ML (REGLAN) IVP SCH (09:24)
[2020-08-26] MEDS: ARTIFICIAL TEARS OINT (LACRI-LUBE) 3.5 GM TUBE OU SCH (09:24)
[2020-08-26 11:39] VITALS: BP 86/63
--- NOTE | 2020-08-26 12:26 | NUR ---
PALLIATIVE CARE RN and Dr Meadows got on a call the nurse was having with . Dr. Meadows explained the critical situation that the patient is in and went through all the various treatment options. Currently there is discussion about transfer for kidney failure to a [facility]... as yet this has been successful. We also discussed making him a NO CODE and explained we could do this while continuing aggressive measures or we could change focus to comfort and allow him to go peacefully with her at his side. , Barbara, broke down sobbing and could no long speak. She, I believe was going to call and speak to someone and then let us know what the plan is. Palliative Care will remain available to answer questions and assist in any way needed.
--- NOTE | 2020-08-26 13:05 | NUR ---
Recvd call to meet pts family as they arrived at hospital to place pt on Comfort care after terminal extubation. I met with family and facilitated pts interaction with and Tomer PATEL RN. Assisted and daughter in seeing Pt, provided support and comfort. Upon my departure family was awaiting further family before extubation.
--- NOTE | 2020-08-26 13:27 | NUR ---
Family is on their way to the hospital to see patient prior to compassionate extubation. This RN will assist as needed.
[2020-08-26] MEDS: MIDAZOLAM DRIP PRE-MIX 100 ML IV SCH (14:20)
--- NOTE | 2020-08-26 14:27 | NUR ---
Family here is at bedside. Several others are in the waiting room. Plan is for compassionate extubation once immediate family has seen him.
[2020-08-26 15:00] VITALS: BP 89/56
--- NOTE | 2020-08-26 16:00 | NUR ---
From 1599 to 1999 this Medical Writer supported staff in explaining and facilitating safe procedures while also providing healing and presence, facilitating communication, and offering grief support.
[2020-08-26 18:24] VITALS: BP 89/56
[2020-08-26] MEDS ORDERED: GLYCOPYRROLATE 0.2 MG/ML (ROBINUL) 2 ML VIAL IV PRN (19:30)
[2020-08-26] MEDS ORDERED: ONDANSETRON 4 MG/2 ML (SDV) Z0FRAN IVP PRN (19:30)
[2020-08-26] MEDS ORDERED: LORazepam INJ 2 MG/ML (ATIVAN) VIAL IVP PRN (19:30)
[2020-08-26] MEDS ORDERED: PROMETHAZINE INJ 25 MG/ML (PHENERGAN) AMP IVP PRN (19:30)
--- NOTE | 2020-08-26 20:32 | NUR ---
This advertising copy writer contacted [facility] at this time. Patient referral # [id number]. Patient will not be a candidate for donation. Will notify [facility] at time of cardiac .
[2020-08-26] MEDS ORDERED: morphine INJ 4 MG/ML 1 ML (VIAL/SYRINGE) ONE (20:39)
[2020-08-26] MEDS ORDERED: ATROPINE INJECTION 1 MG/10 ML SYR (ABBOTT) ONE (20:39)
--- NOTE | 2020-08-26 21:02 | NUR ---
Patient extubated at this time. Family at the bedside.
--- NOTE | 2020-08-26 21:07 | NUR ---
Patient at this time. Family at the bedside. Verified by RNx2. This underwriter and Monse Fairbanks RN. No heart tones, no spontaneous respirations.
--- NOTE | 2020-08-26 21:15 | NUR ---
[place] [facility] senior integration developer Hernán notified of patient expiration. Family did not request services, Ada had spent the evening with family.
--- NOTE | 2020-08-26 21:47 | NUR ---
Text to Dr Meadows to notify TOD 2106.
--- NOTE | 2020-08-26 21:51 | NUR ---
2146 Call to [place]/spoke to VENECIA. Notified of cardiac @ 2106.
--- NOTE | 2020-08-26 22:04 | NUR ---
Notified Dr Meadows, Dr Valderrama and E ICU of patient expiration.
--- NOTE | 2020-08-26 23:50 | NUR ---
Patient body released to [facility] home at this time.
--- NOTE | 2020-08-27 01:13 | NUR ---
Patient Fentanyl and Versed drips wasted at this time. Claribel RN witness.
--- NOTE | 2020-08-27 07:56 | Pulmonary Progress Note ---
Standard Progress Note Progress Notes Date Seen by Provider: Aug 26, 2020 (late note ) Time Seen by Provider: 13:00 Discussed with family over the phone with pallative care RN then again once family arrived to hospital. Pt is very critical and has worsening renal failure. PT is also requiring 100% Fi02 and 20 of PEEP. All options of care give to family including transfer and comfort care. All questions answered to the best of our ability. Family plans on making pt CAMPUS DIRECTOR later today once other family members arrive. Assessment & Plan Acute respiratory failure with ARDS secondary to COVID -Currently on vent with 20 PEEP -EICU managed through the night -Restart TF at 15cc/hr -Add versed titrate Propofol to D/C as tolerated -Fentanyl -Repeat PCT - Continue to Prone x 16hours per day -DDIMER 13.98 --Lovenox 1mg/kg Q12 Acute kidney injury superimposed on chronic TTE showed no evidence of endocarditis Decadron s/p Remdesivir s/p 1 unit convalescent plasma Thrombocytopenia/pancytopenia -Check DIC panel -Check HIT -Change Lovenox to angiomax PNA with pseudomonus -D/C Levaquin and continue Zosyn -D/C Vancomycin bacteremia- -Vancomycin -- Will d/c now Diarrhea -Now resolved -Flagyl is d/c'd -D/C rectal tube T2DM Steroid-induced hyperglycemia Levemir SSI HTN Hold home meds HLD PAD GERD DVT/GI Prophylaxis: Lovenox-- therapeutic dosing -Protonix Critical Care: Critically Ill Patient Time spent with patient (mins): 60 Focused Exam Time of Focused Exam: 19:19 DRISS JOSHI DO Aug 27, 2020 07:56
== END 2020-08-26 21:08 | disposition expired | DRG 870 ==
LOC: EDUNIT# 17:25 → ER 17:26 → ICU 19:21 → CSD 08-13 13:18 → ICU 08-13 13:18
PROVIDERS: ADMIT Family Medicine; ATTEND Family Medicine
PROC: 5A1955Z Respiratory Ventilation, Greater than 96 Consecutive Hours (ICD-10-PCS; principal; 2020-08-10)
PROC: 0BH17EZ Insertion of Endotracheal Airway into Trachea, Via Natural or Artificial Opening (ICD-10-PCS; 2020-08-10)
PROC: XW043E5 Introduction of Remdesivir Anti-infective into Central Vein, Percutaneous Approach, New Technology Group 5 (ICD-10-PCS; 2020-08-12)
PROC: XW14325 Transfusion of Convalescent Plasma (Nonautologous) into Central Vein, Percutaneous Approach, New Technology Group 5 (ICD-10-PCS; 2020-08-12)
DX: A41.89 Other specified sepsis (principal); U07.1 COVID-19; R65.21 Severe sepsis with septic shock; J12.89 Other viral pneumonia; J80 Acute respiratory distress syndrome; J15.1 Pneumonia due to Pseudomonas; N17.9 Acute kidney failure, unspecified; E87.2 Acidosis; E46 Unspecified protein-calorie malnutrition; D61.818 Other pancytopenia; Z66 Do not resuscitate; Z51.5 Encounter for palliative care; I12.9 Hypertensive chronic kidney disease with stage 1 through stage 4 chronic kidney disease, or unspecified chronic kidney disease; N18.9 Chronic kidney disease, unspecified; R73.03 Prediabetes; T38.0X5A Adverse effect of glucocorticoids and synthetic analogues, initial encounter; I73.9 Peripheral vascular disease, unspecified; E78.5 Hyperlipidemia, unspecified; K21.9 Gastro-esophageal reflux disease without esophagitis; Z95.828 Presence of other vascular implants and grafts; Z68.32 Body mass index [BMI] 32.0-32.9, adult; Z68.36 Body mass index [BMI] 36.0-36.9, adult; E66.01 Morbid (severe) obesity due to excess calories; R19.7 Diarrhea, unspecified; Z73.0 Burn-out
CPT/HCPCS: 36415; 51702; 71045; 76700; 80048; 80053; 80202; 81000; 82150; 82805; 82962; 83036; 83605; 83615; 83690; 83735; 83880; 84100; 84145; 84478; 85007; 85025; 85027; 85379; 85384; 85610; 85730; 86022; 86141; 86900; 86901; 87040; 87070; 87077; 87088; 87186; 87205; 87324; 87449; 87493; 87804; 93308; 94002; 94003; 94640; 94799; 96374; 96375